=== PATIENT | male | born 1965 | race Two or more races ===

== ENCOUNTER 2025-05-01 13:58 | Outpatient (AMB) | payer MEDICAID, SELFPAY ==
--- OUTSIDE RECORDS SUMMARY | 2011-01-18 10:10 | XMS_ITS | Continuity of Care Document ---
Author Organization [facility] Address [address] [place] [address] Phone Care Team Providers Care Interactive Web Developer Name Role Phone Piotr Lux MD Unavailable Unavailable Medications Medication Instructions Dosage Effective Dates (start - stop) Status Comments Avelox 400 mg Tab take 1 tablet (400MG ) by oral route every day - Active Nasonex 50 mcg/Actuation [place] spray 2 spray by intranasal route every day in each nostril - Active Procedures Procedure Date OV, New Pt, Level II OV, New Pt, Level II Advance Directives Directive Yes / No Effective Date File Name Resuscitation Not Answered N/A N/A Life Support Not Answered N/A N/A Intubation Not Answered N/A N/A Antibiotics Not Answered N/A N/A IV Fluid Support Not Answered N/A N/A Tube Feed Not Answered N/A N/A Other Directive N/A N/A WARNING:The information contained in this section is historical and is provided for information only and does not constitute a legal document or any assurance that the information is still accurate. Please verify the information with the williamson of the legal document before using it for clinical purposes. Encounters Encounter Description Practice Location Reason(s) For Visit Diagnoses Date Provider Providers Copied on Encounter OV, New Pt, Level II [facility], [address], [place], [place], [id number], tel:[phone] [facility] Throat Pain (chief complaint)C ough (chief complaint) Throat PainOther Disease/Jimmy al Cavity/Sinu ses Jose J Saldaña. [address] [facility] [address], [address], [id number], [place]. tel:[phone] OV, New Pt, Level II [facility], [address], [place], [place], [id number], [place] tel:[phone] [facility] Chronic Rhinitis Jose J Saldaña. [address] [facility] [address], [facility] [address], [place], [place], [id number], [place]. tel:[phone] Family History Family Member Type Diagnosis Age At Onset No Information Payers Payer name Insurance type Covered green party ID Authoriza tion(s) Prompt Pay CI Social History Type Description Quantity Date Captured Comments Alcohol Use Details Caffeine Use Details coffee Tobacco Use Status Smoking Status No Information Sex Male Chief Complaint And Reason For Visit From encounter dated '01/18/2011 14:10'. Throat Pain (chief complaint). Description: The onset was week(s) ago. The symptom occurs constantly. The severity level is mild-moderate. There is a history of smoke exposure. Cough (chief complaint) Reason For Referral Reason For Referral No Information History Of Present Illness Encounter Date Complaint History Of Prese nt Illness No Information Functional Status Date Functional Assessmen t No Information Instructions Date Instruction Additional Infor mation No Information Assessments Type Assessment Date No Information Patient Care Teams Name Effective Dates (start - stop) Status Members No Information
--- NOTE | 2025-05-01 13:58 | MHC.OFFVIS ---
Vital Signs 05/01/25 14:09 Height 5 ft 6 in Weight 197 lb BMI 31.8 BP 156/100 H Blood Pressure Location Rt brachial Position Sitting Pulse 87 Pulse Source Pulse Oximeter Pulse Oximetry (%) 100 Oxygen Delivery Method Room Air Intake Visit Reasons: LUMBAR RADICULOPATHY Intake Note: Pain today 05/16 Hearing Healthcare Practitioner Required: No Accompanied by: Self / Same As Patient Allergies No Known Allergies Allergy (Verified 05/01/25 14:09) HPI Comments Details: The patient is a 59-year-old male presenting with chronic back pain and radiculopathy. 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 The pain is described as constant, burning, stabbing, and sharp, with additional sensations of cramping, crushing, and pinching. The pain worsens in the afternoon and is exacerbated by movements such as walking, bending, and changes in cold weather. It affects sleep and daily functioning, and the patient reports using a cane or walker for mobility. The patient has a history of spinal stenosis and disc herniation, revealed by an MRI showing disc herniation at T12-L1 and moderate to severe stenosis from L3 through S1. The pain radiates to both legs, particularly the back of the left leg, and is associated with numbness and tingling in the toes and weakness with walking. Patient reports he uses cane with walking. Previous management in [place] included epidural steroid injections, physical therapy, oxycodone and tramadol, but the opioid regimen has changed since moving to [place]. The patient reports that tramadol was replaced, and there is a request for increased oxycodone dosage, which was not fulfilled. 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 - Quality: Constant, burning, stabbing, sharp, cramping, crushing, pinching - Location: Lower back, radiating to both legs, especially the back of the left leg - Exacerbating factors: Movement, walking, bending, cold weather - Relieving factors: Oxycodone - Interference: Affects sleep, mobility, social and daily activities - Affect: Pain impacts sleep and daily functioning - Analgesia: Previously managed with oxycodone and tramadol; current regimen includes oxycodone 5 mg - Adverse Effects: None reported - Activities of Daily Living: Uses cane or walker for mobility; pain affects ability to work - Aberrant Drug Related Behaviors: Request for increased oxycodone dosage not fulfilled [facility] Medical History GERD (gastroesophageal reflux disease) Asthma Insomnia Hypertension Chronic pain of both shoulders Osteoarthritis of both knees Left wrist pain Cervical pain Chronic low back pain Lumbar degenerative disc disease Lumbar radiculopathy Lumbar spinal stenosis Surgical History History of carpal tunnel surgery of right wrist Review of Systems Const Details: - Musculoskeletal: Reports chronic back pain, shoulder pain, neck pain, and osteoarthritis in both knees - Neurological: Reports numbness and tingling in toes, weakness, denies bladder or bowel dysfunction or saddle anesthesia - General: Denies diabetes, fever, chills, cough or infection All systems reviewed & are unremarkable except as noted in HPI and below Physical Exam General: Appears afebrile. Alert and oriented. Mood and affect appropriate. Follows and participates in conversation appropriately. Respiratory effort is unlabored. No cough. Able to transition from sit to stand unassisted. Ambulates with bilaterally normal heel strike and toe off. General: Yes no CVA tenderness Back/Spine/Pelvis Other: Limited lumbar ROM due to pain. Lumbar flexion and extension reproduces moderate pain. Demonstrates 5/5 right and 4/5 left strength of quadriceps bilaterally as well as flexion/dorsiflexion of bilateral feet against resistance. 2+ pedal pulses bilaterally. Straight leg rise with dorsiflexion positive bilaterally, left>right. +1 patellar and achilles reflexes bilaterally. Facet loading test positive bilaterally. Brayden?s, Gaenslen, Pelvic compression and Stinchfield tests are positive bilaterally. No groin pain with I/E hip rotations. Valsalva maneuver is positive. Back: no CVA tenderness Cervical Spine: cervical ROM normal, cervical muscular tenderness and No Cervical spine tenderness Thoracic/Lumbar Spine: thoracic and lumbar spine normal to inspection, Thoracic/lumbar spine scar(s), Lasegue's sign positive bilateral and diffuse, pain with thoraco-lumbar ROM, paraspinal muscle tenderness, thoraco-lumbar ROM limited, No thoracic spinal tenderness and lumbar spinal tenderness (L3-S1) Sacroiliac joints: bilaterally tender to palpation Extrem General: Yes capillary refill normal, Yes no clubbing, cyanosis or edema and Yes no calf tenderness Results Reviewed Results Reviewed: PCP referral notes: Assessment & Plan Assessment & Plan (1) Lumbar radiculopathy: Code(s): M54.16 - Radiculopathy, lumbar region Category: Medical (2) Lumbar degenerative disc disease: Code(s): M51.369 - Other intervertebral disc degeneration, lumbar region without mention of lumbar back pain or lower extremity pain Category: Medical (3) Lumbar spinal stenosis: Code(s): M48.061 - Spinal stenosis, lumbar region without neurogenic claudication Category: Medical (4) Chronic low back pain: Code(s): M54.50 - Low back pain, unspecified; G89.29 - Other chronic pain Category: Medical (5) Lumbar spondylosis: Code(s): M47.816 - Spondylosis without myelopathy or radiculopathy, lumbar region Category: Medical Plan The plan includes obtaining medical records from [facility] and previous pain clinic to review previous MRI results and pain management strategies. The patient will be considered for injections to manage lumbar spinal stenosis and radiculopathy, contingent upon insurance approval and completion of physical therapy. I have informed patient that I do not offer opioid prescribing, currently prescribed oxycodone 5 mg BID prn by PCP but requests an increased dosages. All questions and concerns have been answered and patient agreed with the treatment plan. Follow up as needed. Patient was informed and verbally consented to the use of an ambient scribe for clinic note documentation during this visit. Orders: Orders PT Evaluation and Treatment Today G89.29 - Other chronic pain, M47.816 - Spondylosis without myelopathy or radiculopathy, lumbar region, M48.061 - Spinal stenosis, lumbar region without neurogenic claudication, M51.369 - Other intervertebral disc degeneration, lumbar region without mention of lumbar back pain or lower extremity pain, M54.16 - Radiculopathy, lumbar region, M54.50 - Low back pain, unspecified Coding Level of Care Code New Pt Level 4 (98776) Diagnoses Lumbar radiculopathy M54.16 Lumbar degenerative disc disease M51.369 Lumbar spinal stenosis M48.061 Chronic low back pain M54.50; G89.29 Lumbar spondylosis M47.816
[2025-05-01 14:09] VITALS: BP 156/100; PULSE 87; O2SAT 100; BMI 31.8
--- OUTSIDE RECORDS SUMMARY | 2025-05-01 18:27 | XMS_ITS | Clinical Summary ---
Author Organization [employer] Address [address] [place] [address] [address] [place] [address] Care Team Providers Care Measurement Supervisor Name Role Phone Missy Mcwilliams MD Primary Care Provider [phone] Allergies No known active allergies Medications Blood Pressure kitIndications:P rimary hypertension 1 Units Once per day. 1 kit 03/28/20 25 Active albuterol 108 (90 Base) MCG/ACT inhaler Inhale 2 puffs every 4 (four) hours if needed for wheezing. 18 g 03/28/20 25 Active amLODIPine (Norvasc) 10 MG tablet Take 1 tablet (10 mg) by mouth Once per day. 90 tablet 1 03/28/20 25 Active azelastine (Astelin) 0.1 % nasal spray Administer 1 spray into each nostril 2 times daily. Use in each nostril as directed 30 mL 1 03/28/20 25 Active Fluticasone-Umec lidin-Vilant (Trelegy Ellipta) 100-62.5-25 MCG/ACT aerosol powder Inhale 1 puff Once per day. 30 each 11 03/28/20 25 Active lisinopril 5 MG tablet Take 1 tablet (5 mg) by mouth Once per day. 90 tablet 1 03/28/20 25 Active montelukast (Singulair) 10 MG tablet Take 1 tablet (10 mg) by mouth at bedtime. 90 tablet 1 03/28/20 25 Active omeprazole OTC (PriLOSEC OTC) 20 MG EC tablet Take 1 tablet (20 mg) by mouth before breakfast. Do not crush, chew, or split. 90 tablet 1 03/28/20 25 Active tiZANidine (Zanaflex) 4 MG capsule Take 1 capsule (4 mg) by mouth 3 times daily. 90 capsule 5 03/28/20 25 Active zolpidem (Ambien) 10 MG tablet TAKE 1 TABLET BY MOUTH AT BEDTIME NEEDED FOR SLEEP 28 tablet 04/29/20 25 Active zolpidem (Ambien) 10 MG tablet Take 1 tablet (10 mg) by mouth if needed at bedtime for sleep. 28 tablet 1 03/28/20 25 2024 Discontinued(R eorder (will not trigger notification to Pharmacy)) oxyCODONE (Roxicodone) 5 MG immediate release tabletIndication s:Lumbar radiculopathy Take 1 tablet (5 mg) by mouth every 6 (six) hours if needed for severe pain for up to 14 days. 56 tablet 04/01/20 25 2024 Discontinued(R eorder (will not trigger notification to Pharmacy)) oxyCODONE (Roxicodone) 5 MG immediate release tabletIndication s:Lumbar radiculopathy Take 1 tablet (5 mg) by mouth every 6 (six) hours if needed for severe pain for up to 14 days. 56 tablet 04/15/20 25 2024 Active Problems Problem Noted Date Diagnosed Date Elevation of levels of lactic acid dehydrogenase (LDH) 09/02/2024 Essential (primary) hypertension 09/02/2024 Encounters Date Type Department Care Team Description 04/28/2025 Refill [facility] [address] [place] [address] Missy Mcwilliams MD 04/15/2025 Telephone [facility] [address] [place] [address] Mirta Valerio RN 04/15/2025 Telephone [facility] [address] [place] [address] Mirta Valerio RN 04/14/2025 Telephone [facility] [address] [place] [address] Mirta Valerio RN 04/14/2025 Telephone [facility] [address] [place] [address] Mirta Valerio RN 04/11/2025 Telephone [facility] [address] [place] [address] Mirta Valerio, greek professor Question 04/10/[address] [address] Missy Mcwilliams MD Medication Question 04/02/[address] [address] Missy Mcwilliams MD FYI 04/01/2025 Telephone [facility] [address] [place] [address] Missy Mcwilliams MD 03/31/[address] [address] Missy Mcwilliams MD Prior Authorization 03/28/2025 1:15 PM EDT Office Visit [facility] [address] [place] [address] Missy Mcwilliams MD Lumbar radiculopathy (Primary Dx); Dietary counseling; Exercise counseling; Class 1 obesity with serious comorbidity and body mass index (BMI) of 31.0 to 31.9 in adult, unspecified obesity type; Left wrist pain; Cervical pain (neck); Colon cancer screening; Prostate cancer screening; Primary hypertension; Encounter for health-related screening 03/28/2025 Travel 03/20/2025 Patient Outreach [address] [address] Navarro Ariza MD Pre-visit Planning (Pre visit planning LVM ) 03/19/2025 Telephone [facility] [address] [place] [address] Missy Mcwilliams MD chart prep 01/31/[address] [address] Navarro Ariza MD New Patient Request from Last 3 Months Family History Medical History Relation Name Comments Diabetes Mother Liver cancer Mother Relation Name Status Comments Mother Social History Tobacco Use Types Packs/Day Years Used Date Smoking Tobacco: Never Passive Smoke Exposure: Current Smokeless Tobacco: Never Tobacco Cessation:Counseling Given: Not Answered Alcohol Use Standard Drinks/Week Comments Never 0 (1 standard drink = 0.6 oz pur e alcohol) Sex and Gender Information Value Date Recorded Sex Assigned at Male 03/26/2025 2:32 PM EDT Legal Sex Male 11:12 AM EDT Gender Identity Male 03/26/2025 2:32 PM EDT Sexual Orientation Straight 03/26/2025 2: 32 PM EDT Last Filed Vital Signs Vital Sign Reading Time Taken Comments Blood Pressure 144/102 03/28/2025 1:31 PM EDT Pulse 80 03/28/2025 1:31 PM EDT Temperature 36.8 C (98.2 F) 03/28/2025 1:31 PM EDT Respiratory Rate 20 03/28/2025 1:31 PM EDT Oxygen Saturation 98% 03/28/2025 1:31 PM EDT Inhaled Oxygen Concentration - - Weight 89.5 kg (197 lb 6.4 oz) 03/28/2025 1:31 P M EDT Height 167.6 cm (5' 6 ) 03/28/2025 1:31 PM EDT Body Mass Index 31.86 03/28/2025 1:31 PM EDT Plan of Treatment Upcoming Encounters Date Type Department Care Team (Late st Contact Info) Description 06/02/2025 11:00 AM EDT Office Visit [facility] [address] [place] [address] Missy Mcwilliams MD [address] [place] [address] Health Maintenance Due Date Last Done Comments CT Colonography 1967 Colonoscopy 1967 Colorectal Cancer Screening 1967 Depression Screening 1967 FIT DNA/Cologuard 1967 FIT 1967 FOBT 1967 HIV Screening 1967 Lipid Panel 1967 SDOH Screening 1967 Sigmoidoscopy 1967 Disability Screening 1967 Alcohol/Substance Use Screening 1979 Hepatitis C Screening 10/09/1985 DTaP/Tdap/Td Vaccines (1 - Tdap) 10/09/1986 Hepatitis B Vaccines (1 of 3 - 19+ 3-dose series) 10/09/1986 Pneumococcal Vaccine: 50+ Ye ars (1 of 1 - PCV) 10/09/2017 Zoster Vaccines (1 of 2) 10/09/2017 COVID-19 Vaccine (1 - 2023-2 5 season) 2025 Influenza Vaccine (#1) 2025 Tobacco Screening 03/28/2026 03/28/2025 RSV Patients and Pa tients Aged 60 years or older (1 - 1-dose 75+ series) 10/09/2042 HIB Vaccines Aged Out No longer eligi ble based on patient's age to complete this topic HPV Vaccines Aged Out No longer eligi ble based on patient's age to complete this topic Hepatitis A Vaccines Aged Out No long er eligible based on patient's age to complete this topic IPV Vaccines Aged Out No longer eligi ble based on patient's age to complete this topic Meningococcal B Vaccine Aged Out No l onger eligible based on patient's age to complete this topic Meningococcal Vaccine Aged Out No emmy sukh eligible based on patient's age to complete this topic RSV under 20 months Aged Out No longe r eligible based on patient's age to complete this topic Rotavirus Vaccines Aged Out No longer eligible based on patient's age to complete this topic Insurance STANDARD Care Teams Measurement Supervisor Relationship Specialty Start Date End Date Missy Mcwilliams MD [address] [place] [phone] PCP - General Family Medicine 03/31/25
--- OUTSIDE RECORDS SUMMARY | 2025-05-01 18:27 | XMS_ITS | Encounter Summary ---
Author Organization [employer] Address [address] [place] [address] [address] [place] [address] Care Team Providers Care Delivery Analyst Name Role Phone Missy Mcwilliams MD Primary Care Provider [phone] Reason for Visit * Reason Onset Date Comments New Patient Request 01/31/2025 Encounter Details Date Type Department Care Team (Late st Contact Info) Description 01/31/2025 Telephone [facility] [address] [place], [place] [phone] Navarro Ariza MD [address] [place], [place] [phone] New Patient Request Social History Tobacco Use Types Packs/Day Years Used Date Smoking Tobacco: Never Assessed Sex and Gender Information Value Date Recorded Sex Assigned at Male 03/26/2025 2:32 PM EDT Legal Sex Male 11:12 AM EDT Gender Identity Male 03/26/2025 2:32 PM EDT Sexual Orientation Straight 03/26/2025 2: 32 PM EDT documented as of this encounter Miscellaneous Notes * Telephone Encounter - Diann Moss - 02/03/2025 3:32 PM EDT Outgoing call to pt to book 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 No answer. Left message. * Telephone Encounter - Corrie Alejandra - 01/31/2025 11:14 AM EDT TC from caller requesting NEW PATIENT visit . DX : N/A Medical Concern: Back Pain (Fall) Insurance name : [employer] [facility] Location : Sooner available Demographic information updated documented in this encounter Plan of Treatment Upcoming Encounters Date Type Department Care Team ([facility] st Contact Info) Description 06/02/2025 11:00 AM EDT Office Visit [facility] [address] [place] [address] Missy Mcwilliams MD [address] [place] [address] documented as of this encounter Visit Diagnoses Not on filedocumented in this encounter Care Teams Delivery Analyst Relationship Specialty Start Date End Date Missy Mcwilliams MD [address] [place] [address] PCP - General Family Medicine 03/31/25 documented as of this encounter
--- OUTSIDE RECORDS SUMMARY | 2025-05-01 18:27 | XMS_ITS | Encounter Summary ---
Author Organization [employer] Address [address] [place] [address] [address] [place] [address] Care Team Providers Care Joiner Name Role Phone Missy Mcwilliams MD Primary Care Provider [phone] Reason for Visit * Reason Onset Date Comments Med Refill 04/28/2025 Encounter Details Date Type Department Care Team (Late st Contact Info) Description 04/28/2025 Refill [facility] [address] [place] [address] Missy Mcwilliams MD [address] [place] [address] Social History Tobacco Use Types Packs/Day Years Used Date Smoking Tobacco: Never Passive Smoke Exposure: Current Smokeless Tobacco: Never Alcohol Use Standard Drinks/Week Comments Never 0 (1 standard drink = 0.6 oz pur e alcohol) Sex and Gender Information Value Date Recorded Sex Assigned at Male 03/26/2025 2:32 PM EDT Legal Sex Male 11:12 AM EDT Gender Identity Male 03/26/2025 2:32 PM EDT Sexual Orientation Straight 03/26/2025 2: 32 PM EDT documented as of this encounter Miscellaneous Notes * Telephone Encounter - Faye Ordonez LPN - 04/28/2025 2:04 PM EDT PHARMACY OPERATIONS COORDINATOR checked on 04/28/25 Ambien last filled on 04/09/25 #15. Last seen 03/28/25. * Telephone Encounter - Nuris Peña - 04/28/2025 1:59 PM EDT TC from pt requesting medication refill. Medications needing refill : zolpidem (Ambien) 10 MG tablet To be sent to: [facility]/pharmacy #[id number] - [place], [place] - [address] [facility] documented in this encounter Plan of Treatment Upcoming Encounters Date Type Department Care Team ([facility] st Contact Info) Description 06/02/2025 11:00 AM EDT Office Visit [facility] [address] [place] [address] Missy Mcwilliams MD [address] [place] [address] documented as of this encounter Visit Diagnoses Not on filedocumented in this encounter Care Teams Joiner Relationship Specialty Start Date End Date Missy Mcwilliams MD [address] [place] [address] PCP - General Family Medicine 03/31/25 documented as of this encounter
--- OUTSIDE RECORDS SUMMARY | 2025-05-01 18:27 | XMS_ITS | Clinical Summary ---
Author Organization [facility] Address [address] [place] [address] Care Team Providers Care Director Of Epidemiology Name Role Phone Unavailable Primary Care Provider Unavailabl e Source Comments PLEASE NOTE, if this patient is a minor, it may be UNLAWFUL to discuss sensitive information that is contained in these records (such as FAMILY PLANNING, MENTAL HEALTH or SUBSTANCE ABUSE) with the minor patient's parent or other person without the patient's specific authorization.[facility] Social History Tobacco Use Types Packs/Day Years Used Date Smoking Tobacco: Never Assessed Sex and Gender Information Value Date Recorded Sex Assigned at Not on file Legal Sex Male 8:52 AM PDT Gender Identity Not on file Sexual Orientation Not on file Plan of Treatment Upcoming Encounters Date Type Department Care Team (Late st Contact Info) Description 05/08/2025 2:40 PM EDT Office Visit [facility] [address] [place] [phone] Angelina Davis RHD [address] [place] [address] Health Maintenance Due Date Last Done Comments Anxiety Screening 1967 Diabetes Screening 1967 Hepatitis C Screening 1967 Lipid Screening 1967 Tobacco Screening 1967 HIV Screening 10/09/1982 Hypertension Screening (#1) 10/09/1985 Imm-DTaP/Tdap/Td (1 - Tdap) 10/09/1986 Imm-Hepatitis B (1 of 3 - 19+ 3-dose series) 7 CT Colonography 10/09/2012 Colonoscopy 10/09/2012 Colorectal Cancer Screening 10/09/2012 FIT/gFOBT 10/09/2012 Fecal DNA 10/09/2012 Flexible Sigmoidoscopy 10/09/2012 Imm-Pneumococcal 50+ (1 of 1 - PCV) 10/09/2017 Imm-Zoster, Recombinant (1 of 2) 10/09/2017 Alcohol and Drug Screen 08/07/2024 Depression Annual Screen 08/07/2024 [id number] ( season) 2025 Imm-Influenza (#1) 2025
== END 2025-05-01 14:40 | disposition home or self-care (01) ==
PROVIDERS: PCP Family Medicine; Visit Provider Nurse Practitioner Family
DX: M54.16 Radiculopathy, lumbar region (principal); M51.369 Other intervertebral disc degeneration, lumbar region without mention of lumbar back pain or lower extremity pain; M48.061 Spinal stenosis, lumbar region without neurogenic claudication; M54.50 Low back pain, unspecified; G89.29 Other chronic pain; M47.816 Spondylosis without myelopathy or radiculopathy, lumbar region
CPT/HCPCS: 99204

== ENCOUNTER → 2025-05-01 13:58 | Outpatient (BNVA) | payer MEDICAID, SELFPAY | PROVIDERS: PCP Family Medicine; Visit Provider Nurse Practitioner Family | DX: M48.061 Spinal stenosis, lumbar region without neurogenic claudication (principal); M54.16 Radiculopathy, lumbar region; M51.369 Other intervertebral disc degeneration, lumbar region without mention of lumbar back pain or lower extremity pain; M54.50 Low back pain, unspecified; G89.29 Other chronic pain; M47.816 Spondylosis without myelopathy or radiculopathy, lumbar region | CPT/HCPCS: 99212 ==

== ENCOUNTER 2025-06-03 09:16 | Outpatient (REF) | payer MEDICAID, SELFPAY ==
--- OUTSIDE RECORDS SUMMARY | 2025-03-06 13:15 | XMS_ITS ---
Author Organization [facility] Address [address] [place] [address] Care Team Providers Care Hand Binder Cutter Name Role Phone BEBETO VILLEGAS Primary Care Provider [phone] CHANTAL DALLAS Unavailable [phone] REASON FOR VISIT AI DOM Insights - Start , 1. Sleep Study Recommended: Yes, - - - - - - - - - - - - - - -- - - - - - - - - - - - - - - - - -, BMI: 31.16 (12/24/2024), Hypertension: Yes (02/02/2023), HeartDisease: No Results Found, - - - - - - - - - - - - - - - - - - - - - - - - - - - - - - - - -, ALFONZO BOT Insights - End Medications Medication SIG (Take, Route, Frequency, Duration) Notes Start Date End Date Status Sutab 0781-146-261 MG Tablet 12 tablets the first dose the evening before and second dose the morning of colonoscopy Orally Twice a day; Duration: 1 days 10/25/2024 Not-Taking oxyCODONE HCl 5 MG Tablet 1 tablet as needed Orally every 6 hrs Not-Taking GaviLyte-C 240 GM Solution Reconstituted milliliter Orally prescribe; Duration: 1 days 10/25/2024 Not-Taking Azelastine HCl 137 MCG/SPRAY Solution 1 puff in each nostril Nasally Twice a day; Duration: 30 days Not-Taking Zithromax Z-Kody 250 MG Tablet 2 tablets on the first day, then 1 tablet daily for 4 days Orally Once a day; Duration: 5 days 01/02/2025 Active Trelegy Ellipta 100-62.5-25 MCG/ACT Aerosol Powder Breath Activated 1 puff Inhalation Once a day; Duration: 30 days 07/26/2024 Active traMADol HCl 50 MG Tablet 1 tablet as needed Orally three times daily; Duration: 30 days 02/10/2025 03/12/2025 Active tiZANidine HCl 4 MG Tablet TAKE 1 TABLET BY MOUTH THREE TIMES A DAY; Duration: 30 Active Spirometer - Kit as directed; Duratio n: 30 days 09/13/2024 Active Pataday 0.1 % Solution 1 drop into affec brittany eye Ophthalmic Twice a day; Duration: 10 days 11/26/2024 Active oxyCODONE HCl 5 MG Tablet 1 tablet as needed Orally every 6 hrs; Duration: 30 days 02/10/2025 03/12/2025 Active Naproxen 500 MG Tablet TAKE 1 TABLET BY MOUTH EVERY 12 HOURS; Duration: 30 Active Montelukast Sodium 10 MG Tablet TAKE 1 TABLET BY MOUTH EVERY DAY; Duration: 90 Active Lisinopril 5 MG Tablet 1 tablet Orally O nce a day; Duration: 90 days 11/11/2024 Active Gabapentin 400 MG Capsule 1 capsule Orally Twice a day; Duration: 90 days Active Ambien 10 MG Tablet 1 tablet at bedtime as needed Orally Once a day; Duration: 30 days 02/25/2025 03/27/2025 Active Albuterol Sulfate HFA 108 (90 Base) MCG/ACT Aerosol Solution INHALE 1 PUFF INTO THE LUNGS EVERY 4 HOURS PRN; Duration: 30 days Active Azelastine HCl 137 MCG/SPRAY Solution 2 puffs (1 spray in each nostril) Nasally Twice a day; Duration: 30 days 11/26/2024 Active Encounters Encounter Location Date Provider Diagnosis [facility] [address] [place] [address] 03/06/2025 BEBETO VILLEGAS Plan Of Treatment Next Appt Details Provider Name:MARY TRAORE, 10:00:00 AM, [address], [place], [address], Progress Notes * Chu CERVANTES:1965 ([age] yo M)Acc No.[id number]:03/06/2025 progress notes Patient: Tino Art Provider: Brodie VILLEGAS MD :1965 A ge:59 Y S ex:Male Date:03/06/2025 Address:[facility] [address], [address], [facility] Subjective: * Chief Complaints: * * AI BOT Insights - Start 1. Sleep Study Recommended: Yes- - - - - - - - - - - - - - - - - - - - - - - - - - - - - - - - -BMI: 31.16 (12/24/2024)Hypertension: Yes (02/02/2023)Heart Disease: No Results Found- - - - - - - - - - - - - - - - - - - - - - - - - - - - - - - - - AI BOT Insights - End * Medications: T akingAlbuterol Sulfate HFA 108 (90 Base) MCG/ACT Aerosol Solution INHALE 1 PUFF INTO THE LUNGS EVERY 4 HOURS PRN Ambien 10 MG Tablet 1 tablet at bedtime as needed Orally Once a day , stop date 03/27/2025zelastine HCl 137 MCG/SPRAY Solution 2 puffs (1 spray in each nostril) Nasally Twice a day Gabapentin 400 MG Capsule 1 capsule Orally Twice a day Lisinopril 5 MG Tablet 1 tablet Orally Once a day Montelukast Sodium 10 MG Tablet TAKE 1 TABLET BY MOUTH EVERY DAY Naproxen 500 MG Tablet TAKE 1 TABLET BY MOUTH EVERY 12 HOURS oxyCODONE HCl 5 MG Tablet 1 tablet as needed Orally every 6 hrs , stop date 03/12/2025Pataday 0.1 % Solution 1 drop into affected eye Ophthalmic Twice a day Spirometer - Kit as directed tiZANidine HCl 4 MG Tablet TAKE 1 TABLET BY MOUTH THREE TIMES A DAY traMADol HCl 50 MG Tablet 1 tablet as needed Orally three times daily , stop date 03/12/2025Trelegy Ellipta 100-62.5-25 MCG/ACT Aerosol Powder Breath Activated 1 puff Inhalation Once a day Zithromax Z-Kody 250 MG Tablet 2 tablets on the first day, then 1 tablet daily for 4 days Orally Once a day Taking Albuterol Sulfate HFA 108 (90 Base) MCG/ACT Aerosol Solution INHALE 1 PUFF INTO THE LUNGS EVERY 4 HOURS PRN Taking Ambien 10 MG Tablet 1 tablet at bedtime as needed Orally Once a day , stop date 03/27/2025Taking Azelastine HCl 137 MCG/SPRAY Solution 2 puffs (1 spray in each nostril) Nasally Twice a day Taking Gabapentin 400 MG Capsule 1 capsule Orally Twice a day Taking Lisinopril 5 MG Tablet 1 tablet Orally Once a day Taking Montelukast Sodium 10 MG Tablet TAKE 1 TABLET BY MOUTH EVERY DAY Taking Naproxen 500 MG Tablet TAKE 1 TABLET BY MOUTH EVERY 12 HOURS Taking oxyCODONE HCl 5 MG Tablet 1 tablet as needed Orally every 6 hrs , stop date 03/12/2025Taking Pataday 0.1 % Solution 1 drop into affected eye Ophthalmic Twice a day Taking Spirometer - Kit as directed Taking tiZANidine HCl 4 MG Tablet TAKE 1 TABLET BY MOUTH THREE TIMES A DAY Taking traMADol HCl 50 MG Tablet 1 tablet as needed Orally three times daily , stop date 03/12/2025Taking Trelegy Ellipta 100-62.5-25 MCG/ACT Aerosol Powder Breath Activated 1 puff Inhalation Once a day Taking Zithromax Z-Kody 250 MG Tablet 2 tablets on the first day, then 1 tablet daily for 4 days Orally Once a day Not-TakingAzelastine HCl 137 MCG/SPRAY Solution 1 puff in each nostril Nasally Twice a day GaviLyte-C 240 GM Solution Reconstituted milliliter Orally prescribe oxyCODONE HCl 5 MG Tablet 1 tablet as needed Orally every 6 hrs Sutab 8189-099-745 MG Tablet 12 tablets the first dose the evening before and second dose the morning of colonoscopy Orally Twice a day Not-Taking Azelastine HCl 137 MCG/SPRAY Solution 1 puff in each nostril Nasally Twice a day Not-Taking GaviLyte-C 240 GM Solution Reconstituted milliliter Orally prescribe Not-Taking oxyCODONE HCl 5 MG Tablet 1 tablet as needed Orally every 6 hrs Not-Taking Sutab 0717-859-615 MG Tablet 12 tablets the first dose the evening before and second dose the morning of colonoscopy Orally Twice a day * Electronic signature of WILLIAMS VILLEGAS MD, [id number] on 06/03/2025 at 10:24 AM EDT Sign off status: Pending * Provider: Brodie VILLEGAS MD Date: 0 03/06/2025 Generated for Lalita castro/Florian/Oni on: 1 10:24 AM EDT
--- OUTSIDE RECORDS SUMMARY | 2025-03-07 11:00 | XMS_ITS ---
Author Organization [facility] C Address [address] [place] [address] Care Team Providers [employer] Supervisor Name Role Phone JOSÉ MIGUEL VILLEGAS Primary Care Provider CHANTAL DALLAS Unavailable [phone] Allergies No Known Allergies REASON FOR VISIT [phone], Medical management of chronic lumbar pain, insomnia , seasonal allergies, and vitaminD deficiency, Rates pain level as 10, Requesting Toradol injection, Oxycodone, Tramadol, Ambien-30 day supply, Montelukast, and Vitamin D., [employer] - Start , 1. Sleep Study Recommended: Yes, - - - - - - - - - - - - - - - - - - - - - - - - - - - - - - - - -, BMI: 31.16 (12/24/2024), Hypertension: Yes (02/02/2023), Heart Disease: No Results Found, - - - - - - - - - - - - - - - - - - - - - - - - - - - - - - - - -, [employer] - End Medications Medication SIG (Take, Route, Frequency, Duration) Notes Start Date End Date Status oxyCODONE HCl 5 MG Tablet 1 tablet as needed Orally every 6 hrs Not-Taking Sutab 1062-374-015 MG Tablet 12 tablets the first dose the evening before and second dose the morning of colonoscopy Orally Twice a day; Duration: 1 days 10/25/2024 Not-Taking Vitamin D (Ergocalciferol) 1.25 MG (49878 UT) Capsule TAKE 1 CAPSULE BY MOUTH ONE TIME PER WEEK FOR 90 DAYS; Duration: 90 Active Azelastine HCl 137 MCG/SPRAY Solution 1 puff in each nostril Nasally Twice a day; Duration: 30 days Not-Taking GaviLyte-C 240 GM Solution Reconstituted milliliter Orally prescribe; Duration: 1 days 10/25/2024 Not-Taking Trelegy Ellipta 100-62.5-25 MCG/ACT Aerosol Powder Breath Activated 1 puff Inhalation Once a day; Duration: 30 days 07/26/2024 Active Zithromax Z-Kody 250 MG Tablet 2 tablets on the first day, then 1 tablet daily for 4 days Orally Once a day; Duration: 5 days 01/02/2025 Not-Taking tiZANidine HCl 4 MG Tablet TAKE 1 TABLET BY MOUTH THREE TIMES A DAY; Duration: 30 Active Ambien 10 MG Tablet 1 tablet at bedtime as needed Orally Once a day; Duration: 30 days 03/07/2025 04/06/2025 Active Montelukast Sodium 10 MG Tablet TAKE 1 TABLET BY MOUTH EVERY DAY; Duration: 90 Active oxyCODONE HCl 5 MG Tablet 1 tablet as needed Orally every 6 hrs; Duration: 30 days 03/07/2025 04/06/2025 Active traMADol HCl 50 MG Tablet 1 tablet as needed Orally three times daily; Duration: 30 days 03/07/2025 04/06/2025 Active Naproxen 500 MG Tablet TAKE 1 TABLET BY MOUTH EVERY 12 HOURS; Duration: 30 Active Pataday 0.1 % Solution 1 drop into affec brittany eye Ophthalmic Twice a day; Duration: 10 days 11/26/2024 Active Spirometer - Kit as directed; Duratio n: 30 days 09/13/2024 Active Azelastine HCl 137 MCG/SPRAY Solution 2 puffs (1 spray in each nostril) Nasally Twice a day; Duration: 30 days 11/26/2024 Active Gabapentin 400 MG Capsule 1 capsule Orally Twice a day; Duration: 90 days Active Lisinopril 5 MG Tablet 1 tablet Orally O nce a day; Duration: 90 days 11/11/2024 Active Albuterol Sulfate HFA 108 (90 Base) MCG/ACT Aerosol Solution INHALE 1 PUFF INTO THE LUNGS EVERY 4 HOURS PRN; Duration: 30 days Active Social History Section Notes: denies smoking Encounters Encounter Location Date Provider Diagnosis 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 A Toradol (ketorolac) 60 mg intramuscular injection was ordered to address his acute exacerbation of back pain. The patient was counseled on the risks associated with opioid therapy, including the potential for dependence, constipation, sedation, and respiratory depression, as well as the importance of not exceeding prescribed dosages or combining with other sedatives or alcohol. The risks and benefits of NSAID therapy were reviewed, including gastrointestinal, renal, and cardiovascular complications. The patient was encouraged to incorporate non-pharmacologic al strategies such as physical therapy, stretching, and ergonomic modifications to support pain management and functional improvement. The importance of medication adherence was emphasized, as non-adherence could result in uncontrolled pain, functional decline, or increased risk of misuse or overdose. The patient is a 59-year-old male presenting via telemedicine for ongoing management of multiple chronic conditions, including lumbar radiculopathy, insomnia, seasonal allergies, and vitamin D deficiency. He reports persistent severe lower back pain radiating to the lower extremities, rating his pain as 10/10. He is currently managed with Oxycodone and Tramadol for pain, Ambien for insomnia, Montelukast for allergies, and Vitamin D supplementation. The patient requests refills for all these medications and specifically requests a Toradol injection for acute pain exacerbation. He denies any side effects from his current medications and states that they are effective. MEDICAL DECISION MAKING AND DIFFERENTIAL DIAGNOSIS: The patient's primary concern is severe lumbar radiculopathy, with a pain score of 10/10 despite ongoing opioid and non-opioid analgesic therapy. Differential diagnoses for his back pain include lumbar disc herniation, spinal stenosis, and musculoskeletal strain, but the chronicity and response to current therapy support the diagnosis of lumbar radiculopathy. Insomnia is likely multifactorial, possibly exacerbated by chronic pain and opioid use. Seasonal allergies are well-controlled on Montelukast, and vitamin D deficiency is managed with supplementation. The patient's request for a Toradol injection was considered appropriate for acute pain exacerbation, given the lack of reported side effects and the need for multimodal pain management. Continued monitoring for opioid-related adverse effects and potential medication interactions is warranted. TREATMENT PLAN: The patient's medical history was reviewed and medications were reconciled.Refil ls for Oxycodone, Tramadol, Ambien, Montelukast, and Vitamin D were provided as the patient reported good efficacy and no adverse effects. The SKIN THERAPIST I-STOP was reviewed to ensure appropriate use and monitoring of medication. A Toradol (ketorolac) 60 mg intramuscular injection was ordered to address acute exacerbation of back pain. The patient was counseled on the risks and benefits of opioid and NSAID use, including potential side effects, risk of dependence, gastrointestinal , renal, and cardiovascular complications, and the importance of adherence to prescribed regimens. Non-pharmacologi perry strategies such as physical therapy, stretching, and ergonomic modifications were discussed as adjuncts to pharmacologic therapy. The patient was advised to monitor for any new or worsening symptoms, including signs of medication side effects, and to seek prompt medical attention if these occur. Follow-up was recommended within 1 month or sooner if symptoms worsen. FOLLOWUP DISCUSSION: The patient was scheduled for a follow-up appointment in one month to evaluate the effectiveness of the current treatment plan and to monitor for any side effects or complications. 03/07/2025 Primary insomnia (ICD-10 - F51.01) A refill for Ambien (zolpidem) was provided, with instructions to use the medication strictly as prescribed to minimize the risk of dependence, next-day drowsiness, cognitive impairment, and other potential side effects. The patient was advised to avoid concurrent use of other central nervous system depressants or alcohol while taking Ambien. The importance of adherence to the prescribed regimen was discussed, as non-adherence could lead to persistent insomnia, impaired daytime functioning, or increased risk of accidents. Non-pharmacologic al interventions, including sleep hygiene practices and consideration of cognitive behavioral therapy for insomnia, were recommended as adjunctive measures. The patient is a 59-year-old male presenting via telemedicine for ongoing management of multiple chronic conditions, including lumbar radiculopathy, insomnia, seasonal allergies, and vitamin D deficiency. He reports persistent severe lower back pain radiating to the lower extremities, rating his pain as 10/10. He is currently managed with Oxycodone and Tramadol for pain, Ambien for insomnia, Montelukast for allergies, and Vitamin D supplementation. The patient requests refills for all these medications and specifically requests a Toradol injection for acute pain exacerbation. He denies any side effects from his current medications and states that they are effective. MEDICAL DECISION MAKING AND DIFFERENTIAL DIAGNOSIS: The patient's primary concern is severe lumbar radiculopathy, with a pain score of 10/10 despite ongoing opioid and non-opioid analgesic therapy. Differential diagnoses for his back pain include lumbar disc herniation, spinal stenosis, and musculoskeletal strain, but the chronicity and response to current therapy support the diagnosis of lumbar radiculopathy. Insomnia is likely multifactorial, possibly exacerbated by chronic pain and opioid use. Seasonal allergies are well-controlled on Montelukast, and vitamin D deficiency is managed with supplementation. The patient's request for a Toradol injection was considered appropriate for acute pain exacerbation, given the lack of reported side effects and the need for multimodal pain management. Continued monitoring for opioid-related adverse effects and potential medication interactions is warranted. TREATMENT PLAN: The patient's medical history was reviewed and medications were reconciled.Refil ls for Oxycodone, Tramadol, Ambien, Montelukast, and Vitamin D were provided as the patient reported good efficacy and no adverse effects. The SKIN THERAPIST I-STOP was reviewed to ensure appropriate use and monitoring of medication. A Toradol (ketorolac) 60 mg intramuscular injection was ordered to address acute exacerbation of back pain. The patient was counseled on the risks and benefits of opioid and NSAID use, including potential side effects, risk of dependence, gastrointestinal , renal, and cardiovascular complications, and the importance of adherence to prescribed regimens. Non-pharmacologi perry strategies such as physical therapy, stretching, and ergonomic modifications were discussed as adjuncts to pharmacologic therapy. The patient was advised to monitor for any new or worsening symptoms, including signs of medication side effects, and to seek prompt medical attention if these occur. Follow-up was recommended within 1 month or sooner if symptoms worsen. FOLLOWUP DISCUSSION: The patient was scheduled for a follow-up appointment in one month to evaluate the effectiveness of the current treatment plan and to monitor for any side effects or complications. 03/07/2025 Seasonal allergies (ICD-10 - J30.2) A refill for Montelukast was provided to continue management of the patient's seasonal allergies. The patient was advised to take the medication daily as prescribed and was informed about potential side effects, including headache, abdominal pain, and rare neuropsychiatric events. The importance of adherence was emphasized, as non-adherence could result in recurrence or worsening of allergy symptoms. The patient was also encouraged to avoid known allergens and consider adjunctive non-pharmacologic al measures, such as nasal saline irrigation, if symptoms persist. The patient is a 59-year-old male presenting via telemedicine for ongoing management of multiple chronic conditions, including lumbar radiculopathy, insomnia, seasonal allergies, and vitamin D deficiency. He reports persistent severe lower back pain radiating to the lower extremities, rating his pain as 10/10. He is currently managed with Oxycodone and Tramadol for pain, Ambien for insomnia, Montelukast for allergies, and Vitamin D supplementation. The patient requests refills for all these medications and specifically requests a Toradol injection for acute pain exacerbation. He denies any side effects from his current medications and states that they are effective. MEDICAL DECISION MAKING AND DIFFERENTIAL DIAGNOSIS: The patient's primary concern is severe lumbar radiculopathy, with a pain score of 10/10 despite ongoing opioid and non-opioid analgesic therapy. Differential diagnoses for his back pain include lumbar disc herniation, spinal stenosis, and musculoskeletal strain, but the chronicity and response to current therapy support the diagnosis of lumbar radiculopathy. Insomnia is likely multifactorial, possibly exacerbated by chronic pain and opioid use. Seasonal allergies are well-controlled on Montelukast, and vitamin D deficiency is managed with supplementation. The patient's request for a Toradol injection was considered appropriate for acute pain exacerbation, given the lack of reported side effects and the need for multimodal pain management. Continued monitoring for opioid-related adverse effects and potential medication interactions is warranted. TREATMENT PLAN: The patient's medical history was reviewed and medications were reconciled.Refil ls for Oxycodone, Tramadol, Ambien, Montelukast, and Vitamin D were provided as the patient reported good efficacy and no adverse effects. The SKIN THERAPIST I-STOP was reviewed to ensure appropriate use and monitoring of medication. A Toradol (ketorolac) 60 mg intramuscular injection was ordered to address acute exacerbation of back pain. The patient was counseled on the risks and benefits of opioid and NSAID use, including potential side effects, risk of dependence, gastrointestinal , renal, and cardiovascular complications, and the importance of adherence to prescribed regimens. Non-pharmacologi perry strategies such as physical therapy, stretching, and ergonomic modifications were discussed as adjuncts to pharmacologic therapy. The patient was advised to monitor for any new or worsening symptoms, including signs of medication side effects, and to seek prompt medical attention if these occur. Follow-up was recommended within 1 month or sooner if symptoms worsen. FOLLOWUP DISCUSSION: The patient was scheduled for a follow-up appointment in one month to evaluate the effectiveness of the current treatment plan and to monitor for any side effects or complications. 03/07/2025 Vitamin D deficiency (ICD-10 - E55.9) A refill for Vitamin D supplementation was provided, with instructions to take the supplement as directed. The patient was counseled on the importance of adherence to prevent persistent deficiency and associated complications, such as bone demineralization and increased fracture risk. He was advised to report any symptoms suggestive of hypercalcemia, including nausea, vomiting, or confusion, which could indicate excessive supplementation. The patient was encouraged to maintain a balanced diet and consider safe sun exposure as additional measures to support vitamin D levels. The patient is a 59-year-old male presenting via telemedicine for ongoing management of multiple chronic conditions, including lumbar radiculopathy, insomnia, seasonal allergies, and vitamin D deficiency. He reports persistent severe lower back pain radiating to the lower extremities, rating his pain as 10/10. He is currently managed with Oxycodone and Tramadol for pain, Ambien for insomnia, Montelukast for allergies, and Vitamin D supplementation. The patient requests refills for all these medications and specifically requests a Toradol injection for acute pain exacerbation. He denies any side effects from his current medications and states that they are effective. MEDICAL DECISION MAKING AND DIFFERENTIAL DIAGNOSIS: The patient's primary concern is severe lumbar radiculopathy, with a pain score of 10/10 despite ongoing opioid and non-opioid analgesic therapy. Differential diagnoses for his back pain include lumbar disc herniation, spinal stenosis, and musculoskeletal strain, but the chronicity and response to current therapy support the diagnosis of lumbar radiculopathy. Insomnia is likely multifactorial, possibly exacerbated by chronic pain and opioid use. Seasonal allergies are well-controlled on Montelukast, and vitamin D deficiency is managed with supplementation. The patient's request for a Toradol injection was considered appropriate for acute pain exacerbation, given the lack of reported side effects and the need for multimodal pain management. Continued monitoring for opioid-related adverse effects and potential medication interactions is warranted. TREATMENT PLAN: The patient's medical history was reviewed and medications were reconciled.Refil ls for Oxycodone, Tramadol, Ambien, Montelukast, and Vitamin D were provided as the patient reported good efficacy and no adverse effects. The SKIN THERAPIST I-STOP was reviewed to ensure appropriate use and monitoring of medication. A Toradol (ketorolac) 60 mg intramuscular injection was ordered to address acute exacerbation of back pain. The patient was counseled on the risks and benefits of opioid and NSAID use, including potential side effects, risk of dependence, gastrointestinal , renal, and cardiovascular complications, and the importance of adherence to prescribed regimens. Non-pharmacologi perry strategies such as physical therapy, stretching, and ergonomic modifications were discussed as adjuncts to pharmacologic therapy. The patient was advised to monitor for any new or worsening symptoms, including signs of medication side effects, and to seek prompt medical attention if these occur. Follow-up was recommended within 1 month or sooner if symptoms worsen. FOLLOWUP DISCUSSION: The patient was scheduled for a follow-up appointment in one month to evaluate the effectiveness of the current treatment plan and to monitor for any side effects or complications. 03/07/2025 snf current use of opiate analgesic (ICD-10 - Z79.891) iStop checked today. Patient made aware of drug addictive potential. Patient advised not to take medication, drink, drive or operate heavy machinery. Advised patient can from respiratory depression. Patient voiced understanding. The patient is a 59-year-old male presenting via telemedicine for ongoing management of multiple chronic conditions, including lumbar radiculopathy, insomnia, seasonal allergies, and vitamin D deficiency. He reports persistent severe lower back pain radiating to the lower extremities, rating his pain as 10/10. He is currently managed with Oxycodone and Tramadol for pain, Ambien for insomnia, Montelukast for allergies, and Vitamin D supplementation. The patient requests refills for all these medications and specifically requests a Toradol injection for acute pain exacerbation. He denies any side effects from his current medications and states that they are effective. MEDICAL DECISION MAKING AND DIFFERENTIAL DIAGNOSIS: The patient's primary concern is severe lumbar radiculopathy, with a pain score of 10/10 despite ongoing opioid and non-opioid analgesic therapy. Differential diagnoses for his back pain include lumbar disc herniation, spinal stenosis, and musculoskeletal strain, but the chronicity and response to current therapy support the diagnosis of lumbar radiculopathy. Insomnia is likely multifactorial, possibly exacerbated by chronic pain and opioid use. Seasonal allergies are well-controlled on Montelukast, and vitamin D deficiency is managed with supplementation. The patient's request for a Toradol injection was considered appropriate for acute pain exacerbation, given the lack of reported side effects and the need for multimodal pain management. Continued monitoring for opioid-related adverse effects and potential medication interactions is warranted. TREATMENT PLAN: The patient's medical history was reviewed and medications were reconciled.Refil ls for Oxycodone, Tramadol, Ambien, Montelukast, and Vitamin D were provided as the patient reported good efficacy and no adverse effects. The SKIN THERAPIST I-STOP was reviewed to ensure appropriate use and monitoring of medication. A Toradol (ketorolac) 60 mg intramuscular injection was ordered to address acute exacerbation of back pain. The patient was counseled on the risks and benefits of opioid and NSAID use, including potential side effects, risk of dependence, gastrointestinal , renal, and cardiovascular complications, and the importance of adherence to prescribed regimens. Non-pharmacologi perry strategies such as physical therapy, stretching, and ergonomic modifications were discussed as adjuncts to pharmacologic therapy. The patient was advised to monitor for any new or worsening symptoms, including signs of medication side effects, and to seek prompt medical attention if these occur. Follow-up was recommended within 1 month or sooner if symptoms worsen. FOLLOWUP DISCUSSION: The patient was scheduled for a follow-up appointment in one month to evaluate the effectiveness of the current treatment plan and to monitor for any side effects or complications. 03/07/2025 Other By signing my name below, Stu Rosales, attest that this documentation has been prepared under the direction and in the presence of José Miguel Villegas MD I, Rajan Gulati personally performed the services described in this documentation. All medical record entries made by the scribe were at my direction and in my presence. I have reviewed the chart and discharge instructions and agree that the record reflects my personal performance and is accurate and completed. Electronically Signed: José Miguel Villegas MD By signing my name below, I, Syeda Roe, attest that this documentation has been supervised by me under the direction and in the presence of José Miguel Villegas MD Electronically Signed: Syeda Roe The patient is a 59-year-old male presenting via telemedicine for ongoing management of multiple chronic conditions, including lumbar radiculopathy, insomnia, seasonal allergies, and vitamin D deficiency. He reports persistent severe lower back pain radiating to the lower extremities, rating his pain as 10/10. He is currently managed with Oxycodone and Tramadol for pain, Ambien for insomnia, Montelukast for allergies, and Vitamin D supplementation. The patient requests refills for all these medications and specifically requests a Toradol injection for acute pain exacerbation. He denies any side effects from his current medications and states that they are effective. MEDICAL DECISION MAKING AND DIFFERENTIAL DIAGNOSIS: The patient's primary concern is severe lumbar radiculopathy, with a pain score of 10/10 despite ongoing opioid and non-opioid analgesic therapy. Differential diagnoses for his back pain include lumbar disc herniation, spinal stenosis, and musculoskeletal strain, but the chronicity and response to current therapy support the diagnosis of lumbar radiculopathy. Insomnia is likely multifactorial, possibly exacerbated by chronic pain and opioid use. Seasonal allergies are well-controlled on Montelukast, and vitamin D deficiency is managed with supplementation. The patient's request for a Toradol injection was considered appropriate for acute pain exacerbation, given the lack of reported side effects and the need for multimodal pain management. Continued monitoring for opioid-related adverse effects and potential medication interactions is warranted. TREATMENT PLAN: The patient's medical history was reviewed and medications were reconciled.Refil ls for Oxycodone, Tramadol, Ambien, Montelukast, and Vitamin D were provided as the patient reported good efficacy and no adverse effects. The SKIN THERAPIST I-STOP was reviewed to ensure appropriate use and monitoring of medication. A Toradol (ketorolac) 60 mg intramuscular injection was ordered to address acute exacerbation of back pain. The patient was counseled on the risks and benefits of opioid and NSAID use, including potential side effects, risk of dependence, gastrointestinal , renal, and cardiovascular complications, and the importance of adherence to prescribed regimens. Non-pharmacologi perry strategies such as physical therapy, stretching, and ergonomic modifications were discussed as adjuncts to pharmacologic therapy. The patient was advised to monitor for any new or worsening symptoms, including signs of medication side effects, and to seek prompt medical attention if these occur. Follow-up was recommended within 1 month or sooner if symptoms worsen. FOLLOWUP DISCUSSION: The patient was scheduled for a follow-up appointment in one month to evaluate the effectiveness of the current treatment plan and to monitor for any side effects or complications. Plan Of Treatment Medication Medication Name Sig Start Date Stop Date Notes Vitamin D (Ergocalciferol) 1 .25 MG (77472 UT) Capsule TAKE 1 CAPSULE BY MOUTH ONE TIME PER WEEK FOR 90 DAYS; Duration: 90 Ambien 10 MG Tablet 1 tablet at bedtime as needed Orally Once a day; Duration: 30 days 03/07/2025 04/06/2025 Montelukast Sodium 10 MG Tablet TAKE 1 T ABLET BY MOUTH EVERY DAY; Duration: 90 oxyCODONE HCl 5 MG Tablet 1 tablet as ne eded Orally every 6 hrs; Duration: 30 days 03/07/2025 04/06/2025 traMADol HCl 50 MG Tablet 1 tablet as ne eded Orally three times daily; Duration: 30 days 03/07/2025 04/06/2025 Treatment Notes Assessment Notes Lumbar radiculopathy Refills for Oxycodo ne and Tramadol were provided to maintain the patient's current pain management regimen, as he reported effective pain control and denied any adverse effects. A Toradol (ketorolac) 60 mg intramuscular injection was ordered to address his acute exacerbation of back pain. The patient was counseled on the risks associated with opioid therapy, including the potential for dependence, constipation, sedation, and respiratory depression, as well as the importance of not exceeding prescribed dosages or combining with other sedatives or alcohol. The risks and benefits of NSAID therapy were reviewed, including gastrointestinal, renal, and cardiovascular complications. The patient was encouraged to incorporate non-pharmacological strategies such as physical therapy, stretching, and ergonomic modifications to support pain management and functional improvement. The importance of medication adherence was emphasized, as non-adherence could result in uncontrolled pain, functional decline, or increased risk of misuse or overdose. Primary insomnia A refill for Ambien (zolpidem) was provided, with instructions to use the medication strictly as prescribed to minimize the risk of dependence, next-day drowsiness, cognitive impairment, and other potential side effects. The patient was advised to avoid concurrent use of other central nervous system depressants or alcohol while taking Ambien. The importance of adherence to the prescribed regimen was discussed, as non-adherence could lead to persistent insomnia, impaired daytime functioning, or increased risk of accidents. Non-pharmacological interventions, including sleep hygiene practices and consideration of cognitive behavioral therapy for insomnia, were recommended as adjunctive measures. Seasonal allergies A refill for Montelu kast was provided to continue management of the patient's seasonal allergies. The patient was advised to take the medication daily as prescribed and was informed about potential side effects, including headache, abdominal pain, and rare neuropsychiatric events. The importance of adherence was emphasized, as non-adherence could result in recurrence or worsening of allergy symptoms. The patient was also encouraged to avoid known allergens and consider adjunctive non-pharmacological measures, such as nasal saline irrigation, if symptoms persist. Vitamin D deficiency A refill for Vitami n D supplementation was provided, with instructions to take the supplement as directed. The patient was counseled on the importance of adherence to prevent persistent deficiency and associated complications, such as bone demineralization and increased fracture risk. He was advised to report any symptoms suggestive of hypercalcemia, including nausea, vomiting, or confusion, which could indicate excessive supplementation. The patient was encouraged to maintain a balanced diet and consider safe sun exposure as additional measures to support vitamin D levels. snf current use of opiate analgesi c iStop checked today. Patient made aware of drug addictive potential. Patient advised not to take medication, drink, drive or operate heavy machinery. Advised patient can from respiratory depression. Patient voiced understanding. Other By signing my name below, Stu Rosales, attest that this documentation has been prepared under the direction and in the presence of José Miguel Villegas MD I, Rajan Gulati personally performed the services described in this documentation. All medical record entries made by the scribe were at my direction and in my presence. I have reviewed the chart and discharge instructions and agree that the record reflects my personal performance and is accurate and completed. Electronically Signed: José Miguel Villegas MD Next Appt Details Follow Up: 4 Weeks, Reason: Provider Name:MARY TRAORE, 10:00:00 AM, [address], [place], [address], Medications Administered Medication Instructions Date of Administration Dosage Notes Toradol IM 03/07/2025 60 mg Progress Notes * Tino CERVANTESDOB:1965 ([age] yo M)Acc No.[id number]:03/07/2025 progress notes Patient: Tino Art Provider: Brodie VILLEGAS MD :1965 A ge:59 Y S ex:Male Date:03/07/2025 Address:[address] [place] [address] [address], [address], [facility] Check Out:03:59 PM EST Subjective: * Chief Complaints: * [phone] management of chronic lumbar pain, insomnia , seasonal allergies, and vitamin D deficiencyRates pain level as 10/10Requesting Toradol injectionOxycodone, Tramadol, Ambien- 30 day supply, Montelukast, and Vitamin D. [facility] - Start 1. Sleep Study Recommended: [...] - - - - - - - [facility] - End * HPI: Bernardino vitale's Visit: The patient is a 59-year-old male presenting via telemedicine for ongoing management of multiple chronic conditions, including lumbar radiculopathy, insomnia, seasonal allergies, and vitamin D deficiency. He reports persistent severe lower back pain radiating to the lower extremities, rating his pain as 10/10. He is currently managed with Oxycodone and Tramadol for pain, Ambien for insomnia, Montelukast for allergies, and Vitamin D supplementation. The patient requests refills for all these medications and specifically requests a Toradol injection for acute pain exacerbation. He denies any side effects from his current medications and states that they are effective. TREATMENT PLAN: The patient's medical history was reviewed and medications were reconciled.Refills for Oxycodone, Tramadol, Ambien, Montelukast, and Vitamin D were provided as the patient reported good efficacy and no adverse effects. The SKIN THERAPIST I-STOP was reviewed to ensure appropriate use and monitoring of medication. A Toradol (ketorolac) 60 mg intramuscular injection was ordered to address acute exacerbation of back pain. The patient was counseled on the risks and benefits of opioid and NSAID use, including potential side effects, risk of dependence, gastrointestinal, renal, and cardiovascular complications, and the importance of adherence to prescribed regimens. Non-pharmacological strategies such as physical therapy, stretching, and ergonomic modifications were discussed as adjuncts to pharmacologic therapy. The patient was advised to monitor for any new or worsening symptoms, including signs of medication side effects, and to seek prompt medical attention if these occur. Follow-up was recommended within 1 month or sooner if symptoms worsen. * Medical History: Low back pain Essential hypertension Carpal tunnel syndrome of right wrist Obesity Asthma Lumbar disc disorder GERD Primary insomnia Medical History Verified * Surgical History: Lipoma left flank removal R wrist surgery- carpel tunnel surgery 06/06/2019 Surgical History verified. * Hospitalization/Major Diagno stic Procedure: same as above Hospitalization Verified. * Family History: M igrated Family Hx: Mother: Cancer ; Mother: Diabetes ;. F amily History Verified.. mother liver problems. * Social History: Social History Verified. d enies smoking. * Medications: T akingAlbuterol Sulfate HFA 108 [...] 1 puff Inhalation Once a day Taking Albuterol Sulfate HFA [...] Activated 1 puff Inhalation Once a day Not-TakingAzelastine HCl 137 MCG/SPRAY Solution 1 puff in each nostril Nasally Twice a day GaviLyte-C 240 GM Solution Reconstituted milliliter Orally prescribe oxyCODONE HCl 5 MG Tablet 1 tablet as needed Orally every 6 hrs Sutab 0394-119-197 MG Tablet 12 tablets the first dose the evening before and second dose the morning of colonoscopy Orally Twice a day Zithromax Z-Kody 250 MG Tablet 2 tablets on the first day, then 1 tablet daily for 4 days Orally Once a day Not-Taking Azelastine HCl 137 MCG/SPRAY Solution 1 puff in each nostril Nasally Twice a day Not-Taking GaviLyte-C 240 GM Solution Reconstituted milliliter Orally prescribe Not-Taking oxyCODONE HCl 5 MG Tablet 1 tablet as needed Orally every 6 hrs Not- Taking Sutab 4049-380-776 MG Tablet 12 tablets the first dose the evening before and second dose the morning of colonoscopy Orally Twice a day Not-Taking Zithromax Z-Kody 250 MG Tablet 2 tablets on the first day, then 1 tablet daily for 4 days Orally Once a day * Allergies: N .K.D.A.yesAllergies Verified. Assessment: * Assessment: 1. L umbar radiculopathy - M54.16 2 . P rimary insomnia - F51.01 3 . S easonal allergies - J30.2 4 . V itamin D deficiency - E55.9 5 . L marbella term current use of opiate analgesic - Z79.891 The patient is a 59-year-old male presenting via telemedicine for ongoing management of multiple chronic conditions, including lumbar radiculopathy, insomnia, seasonal allergies, and vitamin D deficiency. He reports persistent severe lower back pain radiating to the lower extremities, rating his pain as 10/10. He is currently managed with Oxycodone and Tramadol for pain, Ambien for insomnia, Montelukast for allergies, and Vitamin D supplementation. The patient requests refills for all these medications and specifically requests a Toradol injection for acute pain exacerbation. He denies any side effects from his current medications and states that they are effective. MEDICAL DECISION MAKING AND DIFFERENTIAL DIAGNOSIS: The patient's primary concern is severe lumbar radiculopathy, with a pain score of 10/10 despite ongoing opioid and non-opioid analgesic therapy. Differential diagnoses for his back pain include lumbar disc herniation, spinal stenosis, and musculoskeletal strain, but the chronicity and response to current therapy support the diagnosis of lumbar radiculopathy. Insomnia is likely multifactorial, possibly exacerbated by chronic pain and opioid use. Seasonal allergies are well- controlled on Montelukast, and vitamin D deficiency is managed with supplementation. The patient's request for a Toradol injection was considered appropriate for acute pain exacerbation, given the lack of reported side effects and the need for multimodal pain management. Continued monitoring for opioid-related adverse effects and potential medication interactions is warranted. TREATMENT PLAN: The patient's medical history was reviewed and medications were reconciled.Refills for Oxycodone, Tramadol, Ambien, Montelukast, and Vitamin D were provided as the patient reported good efficacy and no adverse effects. The SKIN THERAPIST I-STOP was reviewed to ensure appropriate use and monitoring of medication. A Toradol (ketorolac) 60 mg intramuscular injection was ordered to address acute exacerbation of back pain. The patient was counseled on the risks and benefits of opioid and NSAID use, including potential side effects, risk of dependence, gastrointestinal, renal, and cardiovascular complications, and the importance of adherence to prescribed regimens. Non-pharmacological strategies such as physical therapy, stretching, and ergonomic modifications were discussed as adjuncts to pharmacologic therapy. The patient was advised to monitor for any new or worsening symptoms, including signs of medication side effects, and to seek prompt medical attention if these occur. Follow-up was recommended within 1 month or sooner if symptoms worsen. FOLLOWUP DISCUSSION: The patient was scheduled for a follow-up appointment in one month to evaluate the effectiveness of the current treatment plan and to monitor for any side effects or complications. Plan: * Treatment: 2. P rimary insomnia Refill Ambien Tablet, 10 MG, 1 tablet at bedtime as needed, Orally, Once a day, 30 days, 30, Refills 0. Notes:A refill for Ambien (zolpidem) was provided, with instructions to use the medication strictly as prescribed to minimize the risk of dependence, next-day drowsiness, cognitive impairment, and other potential side effects. The patient was advised to avoid concurrent use of other central nervous system depressants or alcohol while taking Ambien. The importance of adherence to the prescribed regimen was discussed, as non-adherence could lead to persistent insomnia, impaired daytime functioning, or increased risk of accidents. Non-pharmacological interventions, including sleep hygiene practices and consideration of cognitive behavioral therapy for insomnia, were recommended as adjunctive measures. 3. S easonal allergies Refill Montelukast Sodium Tablet, 10 MG, TAKE 1 TABLET BY MOUTH EVERY DAY, 90, 90 Tablet, Refills 0. Notes:A refill for Montelukast was provided to continue management of the patient's seasonal allergies. The patient was advised to take the medication daily as prescribed and was informed about potential side effects, including headache, abdominal pain, and rare neuropsychiatric events. The importance of adherence was emphasized, as non-adherence could result in recurrence or worsening of allergy symptoms. The patient was also encouraged to avoid known allergens and consider adjunctive non-pharmacological measures, such as nasal saline irrigation, if symptoms persist. 4. V itamin D deficiency Refill Vitamin D (Ergocalciferol) Capsule, 1.25 MG (23032 UT), TAKE 1 CAPSULE BY MOUTH ONE TIME PER WEEK FOR 90 DAYS, 90, 12 Capsule, Refills 0. Notes:A refill for Vitamin D supplementation was provided, with instructions to take the supplement as directed. The patient was counseled on the importance of adherence to prevent persistent deficiency and associated complications, such as bone demineralization and increased fracture risk. He was advised to report any symptoms suggestive of hypercalcemia, including nausea, vomiting, or confusion, which could indicate excessive supplementation. The patient was encouraged to maintain a balanced diet and consider safe sun exposure as additional measures to support vitamin D levels. 5. L marbella term current use of opiate analgesic Notes: iStop checked today. Patient made aware of drug addictive potential. Patient advised not to take medication, drink, drive or operate heavy machinery. Advised patient can from respiratory depression. Patient voiced understanding. 6. O thers Notes: By signing my name below, Stu Rosales, attest that this documentation has been prepared under the direction and in the presence of José Miguel Villegas MD I, Rajan Gulati personally performed the services described in this documentation. All medical record entries made by the scribe were at my direction and in my presence. I have reviewed the chart and discharge instructions and agree that the record reflects my personal performance and is accurate and completed. Electronically Signed: José Miguel Villegas MD Clinical Notes: By signing my name below, Syeda Rosales, attfrank that this documentation has been supervised by me under the direction and in the presence of José Miguel Villegas MD Electronically Signed: Syeda Roe * Therapeutic Injections: Toradol IM : 60 mg (Pending) (Lumbar radiculopathy) * Procedure Codes: G 2211 Complex e/m visit add on * Follow Up: 4 Weeks Billing Information: * Procedure Codes: G2211 Complex e/m visit add on. * Electronic signature of WILLIAMS VILLEGAS MD, [id number] on 06/03/2025 at 10:23 AM EDT Sign off status: Pending * Provider: Brodie VILLEGAS MD Date: 0 03/07/2025 Generated for Lalita castro/Florian/Vincentitting on: 1 10:23 AM EDT
--- OUTSIDE RECORDS SUMMARY | 2025-03-13 10:15 | XMS_ITS ---
Author Organization [facility] C Address [address] [place] [address] Care Team Providers Care Language And Literature Division Chair Name Role Phone BEBETO VILLEGAS Primary Care Provider CHANTAL DALLAS Unavailable [phone] REASON FOR VISIT b-12, tordol shot Encounters Encounter Location Date Provider Diagnosis [facility] [address] [place] [address] 03/13/2025 BEBETO VILLEGAS Plan Of Treatment Next Appt Details Provider Name:MARY TRAORE, 10:00:00 AM, [address] [place], [address], Medications Administered Medication Instructions Date of Administration Dosage Notes Vitamin B12 Injection up to 1000mcg 03/13/2025 1000 ug Toradol IM 03/13/2025 60 mg Progress Notes * Tino CERVANTESDOB:1965 ([age] yo M)Acc No.[id number]:03/13/2025 Progress Note Patient: Tino Art Provider: Brodie VILLEGAS MD :1965 A ge:59 Y S ex:Male Date:03/13/2025 Address:[address], [address], [id number] Check In:02:15 PM ESTCheck O ut:02:33 PM EST Subjective: * Chief Complaints: * B -12, tordol shot Plan: * Therapeutic Injections: Vitamin B12 Injection up to 1000mcg : 1000 mcg (Route: Subcutaneous) given by Nena Wix on left gluteus Toradol IM : 60 mg (Route: Intramuscular) given by Nena Wix on right gluteus * Procedure Codes: J 3420 INJ VIT B-12 CYNOCOBLMN TO 1000 [id number] THER/PROPH/DIAG INJ, [id number] INJ KETOROLAC TROMETHAMINE 15 MG, Units: 4.00 Billing Information: * Procedure Codes: J3420 INJ VIT B-12 CYNOCOBLMN TO 1000 [address]CG. 22586 THER/PROPH/DIAG INJ, SC/IM. J1885 INJ KETOROLAC TROMETHAMINE 15 MG. Units: 4.00. * Electronic signature of WILLIAMS VILLEGAS MD, [id number] on 06/03/2025 at 10:24 AM EDT Sign off status: Pending * Provider: Brodie VILLEGAS MD Date: 0 03/13/2025 Generated for Lalita castro/Florian/Oni on: 1 10:24 AM EDT
--- OUTSIDE RECORDS SUMMARY | 2025-03-21 09:15 | XMS_ITS ---
Author Organization [facility] Address [address] [place] [address] Care Team Providers Care Product Assurance Engineer Name Role Phone BEBETO VILLEGAS Primary Care Provider CHANTAL DALLAS Unavailable [phone] JANET QUACH Unavailable [phone] REASON FOR VISIT Right Hip (new issue-needs X-rays) Encounters Encounter Location Date Provider Diagnosis [address] [place] [address] 03/21/2025 JANET QUACH Plan Of Treatment Next Appt Details Provider Name:MARY TRAORE, 10:00:00 AM, [address], [place], [address], Progress Notes * CERVANTES TinoDOB:1965 ([age] yo M)Acc No.[id number]:03/21/2025 Progress Notes Patient: Tino Art Provider: Patricia QUACH MD :1965 A ge:59 Y S ex:Male Date:03/21/2025 Address:[address], [address], [place], [place] Pcp:BEBETO VILLEGAS Subjective: * Chief Complaints: * R ight Hip (new issue-needs X-rays) * Electronic signature of NITIN QUACH MD, [id number] on 06/03/2025 at 10:23 AM EDT Sign off status: Pending * Provider: Patricia QUACH MD Date: 0 03/21/2025 Generated for Lalita castro/Florian/Vincentitting on: 1 10:23 AM EDT
--- OUTSIDE RECORDS SUMMARY | 2025-04-10 09:00 | XMS_ITS ---
Author Organization [facility] Address [address] [place] [address] Care Team Providers Care Proofing Machine Operator Name Role Phone BEBETO VILLEGAS Primary Care Provider [phone] CHANTAL DALLAS Unavailable [phone] JANET QUACH Unavailable [phone] REASON FOR VISIT RT Hip New Condition, Lumbar Spine, Ribs Pain 09/12/2024 - ref. by Dr. Villegas Encounters Encounter Location Date Provider Diagnosis [address] [facility] [address] [place] [address] 04/10/2025 JANET QUACH Encounter related to worker's [...] Name:MARY LEÓN, 10:00:00 AM, [address], [place], [address], History and Physical Notes * HPI (History of Present Illness) Category Sub-Category Detail Notes Category Not es Today's Visit _ [facility] Order Date: 09/13/2024 Performed Date: 09/13/2024 14:16:00 Transcribed: 09/13/2024 15:11:15 Requesting Physician: IRENE GUALLPA Ordering Physician: IRENE GUALLPA X-ray Lumbar Spine 3V (A/P, Lat, Spot)* REPORT Exam: CLINICAL INFORMATION: Back pain after injury. TECHNIQUE: X-Ray Lumbar Spine, 3 View(s) COMPARISON: 08/02/2024. FINDINGS:Alignment: Vkna-et-wuucmfad convex right thoracolumbar scoliosis. Stablemild grade 1 [...] considered. 15:Tino Morgan M ,1965 Accession ID: [id number] Images viewed on PACS. I agree with the report. [facility] Procedure Date: 09/13/2024 Procedure ID: [id number] Procedure Name: CT Abdomen/Pelvis w* Procedure Notes: [...] PACS. I agree with the report. ____ [facility] Procedure Date: 09/13/2024 Procedure ID: [id number] Procedure Name: X-ray Ribs 3V, right* Procedure [...] * Tino CERVANTESDOB:1965 ([age] yo M)Acc No.[id number]:04/10/2025 Progress Notes Patient: Tino Art Provider: Patricia QUACH MD :1965 A ge:59 Y S ex:Male Date:04/10/2025 Address:[facility] [address], [place], [id number] Pcp:BEBETO VILLEGAS Subjective: * Chief Complaints: * R T Hip New ConditionLumbar Spine, Ribs Pain 09/12/2024 - ref. by Dr. 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 On the way down there was no railings he slipped on the first step, slid down a few stepsand h it his right ribs and the back region on the steps. and he slipped and fell injuring his lower back and his ribs. He was seen at [facility] where broken ribs were found. He was [...] aggravated by movement. Symptoms relieved by Oxycodone. [facility] Order Date: 09/13/2024 Performed Date: 09/13/2024 1 4:16:00 Transcribed: 0 09/13/2024 1 5:11:15 Requesting Physician: IRENE GUALLPA Ordering Physician: IRENE GUALLPA X-ray Lumbar Spine 3V (A/P, Lat, Spot)* REPORT Exam: CLINICAL INFORMATION: Back pain after injury. TECHNIQUE: X-Ray Lumbar Spine, 3 View(s) COMPARISON: 08/02/2024. FINDINGS:Alignment: Tlwe-en-jcwrpcwr convex right thoracolumbar scoliosis. Stablemild grade 1 [...] considered. 15:Tino Morgan M ,1965 Accession ID: [id number] Images viewed on PACS. I agree with t he report. [facility] Procedure Date: 09/13/2024 Procedure ID: [id number] Procedure Name: CT Abdomen/Pelvis w* Procedure Notes: [...] 09/13/2024 Report Electronically Signed By: MD Jason, [employer] viewed on [email or web address]. I agree with t emely report. [facility] Procedure Date: 09/13/2024 Procedure ID: [id number] Procedure Name: X-ray Ribs 3V, right* Procedure [...] 09/13/2024 Report Electronically Signed By: MD Jason, [employer] viewed on [email or web address]. I agree with t emely report. * [...] * Electronic signature of NITIN QUACH MD, [id number] on 06/03/2025 at 10:24 AM EDT Sign off status: Pending * Provider: Patricia QUACH MD Date: 0 04/10/2025 Generated for Lalita castro/Florian/eTransmitting on: 1 10:24 AM EDT
--- OUTSIDE RECORDS SUMMARY | 2025-05-27 09:15 | XMS_ITS ---
Author Organization [facility] Address [address] [place] [address] Care Team Providers Care Herbicide Sprayer Name Role Phone JOSÉ MIGUEL VILLEGAS Primary Care Provider [phone] CHANTAL DALLAS Unavailable [phone] Allergies No Known Allergies REASON FOR VISIT [...] HOURS PRN; Duration: 30 days Unknown Sutab 8090-604-593 MG Tablet 12 tablets the first dose [...] days Unknown Vitamin D (Ergocalciferol) 1.25 MG (82416 UT) Capsule TAKE 1 CAPSULE BY MOUTH [...] smoking Encounters Encounter Location Date Provider Diagnosis [place] [address] [address] 05/27/2025 JOSÉ MIGUEL VILLEGAS Lumbar radiculopathy M54.16 ; Abdominal pain R10.84 ; halfway current use of opiate analgesic Z79.891 and [...] dependence, sedation, constipation, and respiratory depression. The [employer] SUPERINTENDENT I-STOP was reviewed to ensure appropriate use [...] times daily for chronic pain management. The [employer] SUPERINTENDENT I-STOP was reviewed for appropriate use. 2. [...] dependence, sedation, constipation, and respiratory depression. The [employer] SUPERINTENDENT I-STOP was reviewed to ensure appropriate use [...] times daily for chronic pain management. The [employer] SUPERINTENDENT I-STOP was reviewed for appropriate use. 2. [...] if new symptoms or concerns arise. 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 The [employer] SUPERINTENDENT I-STOP was reviewed to ensure appropriate use [...] times daily for chronic pain management. The [employer] SUPERINTENDENT I-STOP was reviewed for appropriate use. 2. [...] dependence, sedation, constipation, and respiratory depression. The [employer] SUPERINTENDENT I-STOP was reviewed to ensure appropriate use [...] times daily for chronic pain management. The [employer] SUPERINTENDENT I-STOP was reviewed for appropriate use. 2. [...] direction and in the presence of José Mgiuel Villegas MD Electronically Signed: Syeda Roe Medical Decision Making (MDM) and Treatment Plan: The patient was evaluated for chronic lumbar radiculopathy , ongoing abdominal pain, and medication management. His medication list was reviewed and reconciled. Oxycodone 10 mg three times daily was prescribed for pain management, with counseling on the risks of long-term opioid therapy including dependence, sedation, constipation, and respiratory depression. The [employer] SUPERINTENDENT I-STOP was reviewed to ensure appropriate use [...] times daily for chronic pain management. The [employer] SUPERINTENDENT I-STOP was reviewed for appropriate use. 2. [...] with IV and PO contrast for evaluation. intermediate frame tender current use of opiate analgesi c iStop [...] Name:MARY LEÓN, 10:00:00 AM, [address], [place], [address], History and Physical Notes * HPI (History [...] * Chu CERVANTES:1965 ([age] yo M)Acc No.[id number]:05/27/2025 progress notes Patient: Tino Art Provider: Brodie VILLEGAS MD :1965 A ge:59 Y S ex:Male Date:05/27/2025 Address:[facility] [address], [address], [facility] Check Out:02:28 PM EST Subjective: * Chief Complaints: * R equests pain medicationAlso, reports abdominal pain and requests imaging. [employer] - Start 1. Sleep Study Recommended: [...] - - - -2. Last Colonoscopy: 01/19/2018 [employer] - End * HPI: H PI: [...] day Spirometer - Kit as directed Sutab [id number] MG Tablet 12 tablets the first dose the evening before and second dose the morning of colonoscopy Orally Twice a day tiZANidine HCl 4 MG Tablet TAKE 1 TABLET BY MOUTH THREE TIMES A DAY Trelegy Ellipta 100-62.5-25 MCG/ACT Aerosol Powder Breath Activated 1 puff Inhalation Once a day Vitamin D (Ergocalciferol) 1.25 MG (41831 UT) Capsule TAKE 1 CAPSULE BY MOUTH [...] Spirometer - Kit as directed Unknown Sutab 9662-775-659 MG Tablet 12 tablets the first dose the evening before and second dose the morning of colonoscopy Orally Twice a day Unknown tiZANidine HCl 4 MG Tablet TAKE 1 TABLET BY MOUTH THREE TIMES A DAY Unknown Trelegy Ellipta 100-62.5-25 MCG/ACT Aerosol Powder Breath Activated 1 puff Inhalation Once a day Unknown Vitamin D (Ergocalciferol) 1.25 MG (90065 UT) Capsule TAKE 1 CAPSULE BY MOUTH [...] dependence, sedation, constipation, and respiratory depression. The [employer] SUPERINTENDENT I-STOP was reviewed to ensure appropriate use [...] times daily for chronic pain management. The [employer] SUPERINTENDENT I-STOP was reviewed for appropriate use. 2. [...] * Electronic signature of WILLIAMS VILLEGAS MD, [id number] on 06/03/2025 at 10:24 AM EDT Sign off status: Pending * Provider: Brodie VILLEGAS MD Date: Generated for Lalita castro/Florian/Vincentitting on: 10:24 AM EDT
--- OUTSIDE RECORDS SUMMARY | 2025-05-29 09:00 | XMS_ITS ---
Author Organization [facility] Address [address] [place] [address] Care Team Providers Care Dot Compliance Specialist Name Role Phone BEBETO VILLEGAS Primary Care Provider [phone] CHANTAL DALLAS Unavailable [phone] Abdomen/Pelvis w* Encounters Encounter Location Date Provider Diagnosis [address] [place] [address] 05/29/2025 BEBETO VILLEGAS Plan Of Treatment Next Appt Details Provider Name:MARY TRAORE, 10:00:00 AM, [address], [place], [address], Progress Notes * Tino CERVANTESDOB:1965 ([age] yo M)Acc No.[id number]:05/29/2025 Progress Note Patient: Tino Art Provider: Brodie VILLEGAS MD :1965 A ge:59 Y S ex:Male Date:05/29/2025 Address:[address], [address], [place], [place] Subjective: * Chief Complaints: * C T Abdomen/Pelvis w* * Electronic signature of WILLIAMS VILLEGAS MD, [id number] on 06/03/2025 at 10:23 AM EDT Sign off status: Pending * Provider: Brodie VILLEGAS MD Date: Generated for Joycelyni ng/Florian/eTransmitting on: 1 10:23 AM EDT
--- OUTSIDE RECORDS SUMMARY | 2025-06-02 11:00 | XMS_ITS ---
Author Organization [facility] Address [address] [place] [address] Care Team Providers Care High School Coordinator Name Role Phone JOSÉ MIGUEL VILLEGAS Primary Care Provider CHANTAL DALLAS Unavailable [phone] Allergies No Known Allergies REASON FOR VISIT Requesting routine bw Medications Medication SIG (Take, Route, Frequency, Duration) Notes Start Date End Date Status Sutab [id number] MG Tablet 12 tablets the first dose [...] 07/26/2024 Active Vitamin D (Ergocalciferol) 1.25 MG (41540 UT) Capsule TAKE 1 CAPSULE BY MOUTH [...] 06/02/2025 Encounters Encounter Location Date Provider Diagnosis [address] [place] [address] 06/02/2025 JOSÉ MIGUEL NELLY Abdominal pain R10.8 4 ; Essential hypertension [...] 06/02/2025 PSA Antigen-[facility] 06/02/2025 Thyroid Stimulating Hormone 4-Sricf-X[facility] 06/02/2025 Vitamin D Total-[facility] 06/02/2025 Comp Metabolic Panel (14)-[facility] 06/02 Lipid Panel-[facility] 06/02/2025 Hemoglobin A1c * 49123 06/09/2025 ESR (sed rate) * 59713 06/09/2025 CBC W/DIFF with Refx to Retic (new) IN H OUSE *2116* 06/09/2025 Next Appt Details Follow Up: post BW results, Reason: Provider Name:MARY TRAORE, 10:00:00 AM, [address], [place], [address], History and Physical Notes * HPI (History [...] * Tino CERVANTESDOB:1965 ([age] yo M)Acc No.[id number]:06/02/2025 progress notes Patient: Tino Art Provider: Brodie VILLEGAS MD :1965 A ge:59 Y S ex:Male Date:06/02/2025 Address:[address] [place] [address] JAMES Marcano, [address] [facility], [id number] Check Out:03:37 PM EST Subjective: [...] day Spirometer - Kit as directed Sutab [id number] MG Tablet 12 tablets the first dose the evening before and second dose the morning of colonoscopy Orally Twice a day tiZANidine HCl 4 MG Tablet TAKE 1 TABLET BY MOUTH THREE TIMES A DAY Trelegy Ellipta 100-62.5-25 MCG/ACT Aerosol Powder Breath Activated 1 puff Inhalation Once a day Vitamin D (Ergocalciferol) 1.25 MG (97162 UT) Capsule TAKE 1 CAPSULE BY MOUTH [...] Spirometer - Kit as directed Taking Sutab 9626-699-825 MG Tablet 12 tablets the first dose the evening before and second dose the morning of colonoscopy Orally Twice a day Taking tiZANidine HCl 4 MG Tablet TAKE 1 TABLET BY MOUTH THREE TIMES A DAY Taking Trelegy Ellipta 100-62.5-25 MCG/ACT Aerosol Powder Breath Activated 1 puff Inhalation Once a day Taking Vitamin D (Ergocalciferol) 1.25 MG (67328 UT) Capsule TAKE 1 CAPSULE BY MOUTH [...] Procedure Codes: 3 008F BODY MASS INDEX [id number] Complex e/m visit add on * Follow Up: p ost BW results Billing Information: * Procedure Codes: 3008F BODY MASS INDEX DOCD. G2211 Complex e/m visit add on. * Electronic signature of WILLIAMS VILLEGAS MD, [id number] on 06/03/2025 at 10:23 AM EDT Sign off status: Pending * Provider: Brodie VILLEGAS MD Date: Generated for Lalita castro/Florian/Vincentitting on: 10:23 AM EDT
--- OUTSIDE RECORDS SUMMARY | 2025-06-02 11:00 | XMS_ITS | Encounter Summary ---
Author Organization [employer] Address [address] [place] [address] Care Team Providers Care Pipe Inspector Name Role Phone Missy Mcwilliams MD Primary Care Provider [phone] Reason for Referral * Consultation (Routine) - Pending Review Specialty Diagnoses / Procedures Referred By Kerri rodrigues Referred To Contact General Surgery Diagnoses Periumbilical hernia Missy Mcwilliams MD [address] [place] [address] Phone: tel: fax: Referral ID Status Reason Start Date Expiration Date Visits Requested Visits Authorized [id number] Pending Review Specialty Services Required 06/02/2026 1 1 * Medications - Closed Specialty Diagnoses / Procedures Referred By Kerri rodrigues Referred To Contact Diagnoses Lumbar radiculopathy Missy Mwcilliams MD [address] [place] [address] Phone: tel: fax: Referral ID Status Reason Start Date Expiration Date Visits Re quested Visits Authorized [id number] Closed 1 1 Encounter Details Date Type Department Care Team ([facility] st Contact Info) Description 06/02/2025 11:00 AM EDT Office Visit [facility] CHC MED & PEDS [address] [place] [address] Missy Mcwilliams MD [address], [place] [phone] Long-term current use of opiate analgesic (Primary Dx); Lumbar radiculopathy; Periumbilical hernia Social History Tobacco Use Types Packs/Day Years Used Date Smoking Tobacco: Never Passive Smoke Exposure: Current Smokeless Tobacco: Never Alcohol Use Standard Drinks/Week Comments Never 0 (1 standard drink = 0.6 oz pur e alcohol) Depression Answer Date Recorded Patient Health Questionnaire-9 Score 22 06/02/2025 Patient Health Questionnaire-9 Score 22 06/02/2025 Last PHQ-9: Questionnaire Data Not on file 1 Housing Stability Answer Date Recorded What is your housing situation today? I do not have housing (Staying with others, in a hotel, in a half-way, living outside on the street, on a beach, in a car, or in a park 06/02/[address] you li ve. Do you have problems with any of the following? None of the above 06/02/2025 Food Insecurity Answer Date Recorded Within the past 12 months, y ou worried that your food would run out before you got money to buy more: Sometimes True 2024 Within the past 12 months,th e food you bought just didn't last and you didn't have enough money to get more: Often true 06/02/2025 Transportation Answer Date Recorded In the past 12 months, has l ack of transportation kept you from medical appts, meetings, work or from getting things needed for daily living? Yes, it has kept me from medical appointments or getting medications. 06/02/2025 Utilities Answer Date Recorded In the past 12 months, has t he electric, gas, oil or water company threatened to shut off services in your home? No 06/02/2025 Depression Answer Date Recorded Patient Health Questionnaire-2 Score 5 06/02/2025 Internet Access Answer Date Recorded Internet Access Q1 Yes 06/02/2025 Internet Access Q2 Not on file 06/02/2025 Sex and Gender Information Value Date Recorded Sex Assigned at Male 03/26/2025 2:32 PM EDT Legal Sex Male 11:12 AM EDT Gender Identity Male 03/26/2025 2:32 PM EDT Sexual Orientation Straight 03/26/2025 2: 32 PM EDT documented as of this encounter Last Filed Vital Signs Vital Sign Reading Time Taken Comments Blood Pressure 152/98 06/02/2025 11:16 AM EDT Pulse 72 06/02/2025 11:16 AM EDT Temperature 36.7 C (98.1 F) 06/02/2025 11:16 AM EDT Respiratory Rate 20 06/02/2025 11:16 AM EDT Oxygen Saturation 98% 06/02/2025 11:16 AM EDT Inhaled Oxygen Concentration - - Weight 89.9 kg (198 lb 3.2 oz) 06/02/2025 11:16 AM EDT Height 167.6 cm (5' 6 ) 06/02/2025 11:16 AM EDT Body Mass Index 31.99 06/02/2025 11:16 AM EDT documented in this encounter Functional Status * Over the past 2 weeks, how often have you been bothered by any of the following problems? Question Answer Date of Assessment Author Patient Health Questionnaire -2 Score 5 06/02/2025 11:19 AM EDT Chano Frazier [place] * Little interest or pleasure in doing things Answer Date of Assessment Author Nearly every day 06/02/2025 11:19 AM EDT Chano Frazier MA * Feeling down, depressed, or hopeless Answer Date of Assessment Author More than half the days 06/02/2025 11:19 AM EDT Chano Frazier MA * Trouble falling or staying asleep, or sleeping too much Answer Date of Assessment Author Nearly every day 06/02/2025 11:19 AM EDT Chano Frazier MA * Feeling tired or having little energy Answer Date of Assessment Author Nearly every day 06/02/2025 11:19 AM EDT Chano Frazier MA * Poor appetite or overeating Answer Date of Assessment Author More than half the days 06/02/2025 11:19 AM EDT Chano Frazier MA * Feeling bad about yourself - or that you are a failure or have let yourself or your family down Answer Date of Assessment Author Nearly every day 06/02/2025 11:19 AM EDT Chano Frazier MA * Trouble concentrating on things, such as reading the newspaper or watching television Answer Date of Assessment Author More than half the days 06/02/2025 11:19 AM EDT Chano Frazier MA * Moving or speaking so slowly that other people could have noticed? Or the opposite - being so fidgety or restless that you have been moving around a lot more than usual. Answer Date of Assessment Author More than half the days 06/02/2025 11:19 AM Chano Johnson MA * Thoughts that you would be better off or hurting yourself in some way Answer Date of Assessment Author More than half the days 06/02/2025 11:19 AM Chano Johnson MA * Patient Health Questionnaire-9 Score Answer Date of Assessment Author 22 06/02/2025 11:19 AM Chano Johnson MA * How difficult have these problems made it for you to do your work, take care of things at home, or get along with other people? Answer Date of Assessment Author Very difficult 06/02/2025 11:19 AM Chano Johnson MA documented as of this encounter Plan of Treatment Upcoming Encounters Date Type Department Care Team (Late st Contact Info) Description 06/19/2025 1:00 PM EST Clinical Support [facility] MED & PEDS [address] [place] [address] Mirta Valerio RN [address] [place] [address] 06/19/2025 2:30 PM EST Clinical Support [facility] [address] [place] [address] 07/22/2025 10:15 AM EST Office Visit [facility] MEDICINE [address] [place] [address] Name, MD Nestor [address] [place] [address] Scheduled Referrals Name Type Priority Associated Diagnoses Orde r Schedule Referral to General Surgery Outpatient Referral Routine Periumbilical hernia Expected: 06/02/2025 (Approximate), Expires: 06/02/2026 documented as of this encounter Visit Diagnoses Diagnosis Long-term current use of opiate analgesic- Primary Encounter for long-term (current) use of other medications Lumbar radiculopathy Thoracic or lumbosacral neuritis or radiculitis, unspecified Periumbilical hernia Umbilical hernia without mention of obstruction or gangrene documented in this encounter Additional Health Concerns Assessment Noted Time PHQ-9 Depression Total Score: 22 025 11:19 AM EDT documented as of this encounter Care Teams Pipe Inspector Relationship Specialty Start Date End Date Missy Mcwilliams MD [address] [place] [address] PCP - General Family Medicine 03/31/25 documented as of this encounter
--- NOTE | 2025-06-03 | EMG_ITS ---
Chief complaint:?M25.532 Pain in left wrist Reason for referral: Left wrist pain Referred by:?Missy Mcwilliams MD Procedure done: Left upper extremity NCS/EMG Left median and ulnar motor studies were performed. Left radial sensory study was performed and median and lateral mixed sensory studies were performed. EMG needle examination was performed. Findings: Left median motor distal latencies was mildly prolonged. Left median mixed distal latencies was moderately prolonged with mildly slow conduction velocity. Impression: [id number]-[id number] left median neuropathy across carpal tunnel Codin 250[address] 1 extremity? MTDD
--- OUTSIDE RECORDS SUMMARY | 2025-06-03 10:23 | XMS_ITS | Encounter Summary ---
Author Organization [employer] Address [address] [place] [address] 7 [place] [address] Care Team Providers Care Jewelry Technician Name Role Phone Missy Mcwilliams MD Primary Care Provider [phone] Reason for Visit * Reason Onset Date Comments Chart Prep 05/30/2025 Encounter Details Date Type Department Care Team ([facility] st Contact Info) Description 05/30/2025 Telephone [facility] CHC MED & PEDS [address] [place] [address] Missy Mcwilliams MD [address] [place] [address] Chart Prep Social History Tobacco Use Types Packs/Day Years [...] encounter Miscellaneous Notes * Telephone Encounter - Phyllis Motta MA - 05/30/2025 11:35 AM EDT Chart Prep Labs: not done Images: not done Referrals: complete Vaccines due: due Screenings: colonoscopy and STI screening Overdue care gaps: SBIRT, SDOH, PHQ-9, and Disability screen documented in this encounter Plan of Treatment Upcoming Encounters Date Type Department Care Team (Late st Contact Info) Description 06/19/2025 1:00 PM EST Clinical Support [facility] MED & PEDS [address] [place] [address] Mirta Valerio, ENZO [address] [place] [address] 06/19/2025 2:30 PM EST Clinical Support [facility] MED & PEDS [address] [place] [address] 07/22/2025 10:15 AM EST Office Visit [facility] MEDICINE [address] [place] [address] Name, MD Nestor [address] [place] [address] documented as of this encounter Visit Diagnoses Not on filedocumented in this encounter Care Teams Jewelry Technician Relationship Specialty Start Date End Date Missy Mcwilliams MD [address] [place] [address] PCP - General Family Medicine 03/31/25 documented as of this encounter
--- OUTSIDE RECORDS SUMMARY | 2025-06-03 10:23 | XMS_ITS | Clinical Summary ---
Author Organization [employer] Address [address] [place] [address] [address] [place] [address] Care Team Providers Care Acid Remover Name Role Phone Missy Mcwilliams MD Primary Care Provider [phone] Allergies No known active allergies Medications * This document contains information received from the source organization and may not represent a complete record from that organization. albuterol 108 (90 Base) MCG/ACT inhaler Inhale 2 puffs every 4 (four) hours if needed for wheezing. 18 g 025 Active amLODIPine (Norvasc) 10 MG tablet Take 1 tablet (10 mg) by mouth Once per day. 90 tablet Active azelastine (Astelin) 0.1 % nasal spray Administer 1 spray into each nostril 2 times daily. Use in each nostril as directed 30 mL Active Fluticasone-Umec lidin-Vilant (Trelegy Ellipta) 100-62.5-25 MCG/ACT aerosol powder Inhale 1 puff Once per day. 30 each Active lisinopril 5 MG tablet Take 1 tablet (5 mg) by mouth Once per day. 90 tablet 1 025 Active montelukast (Singulair) 10 MG tablet Take 1 tablet (10 mg) by mouth at bedtime. 90 tablet 025 Active omeprazole OTC (PriLOSEC OTC) 20 MG EC tablet Take 1 tablet (20 mg) by mouth before breakfast. Do not crush, chew, or split. 90 tablet 025 Active tiZANidine (Zanaflex) 4 MG capsule Take 1 capsule (4 mg) by mouth 3 times daily. 90 capsule 5 Active naloxone (Narcan) 4 mg/0.1 mL nasal sprayIndications :Lumbar radiculopathy Administer 1 spray (4 mg) into affected nostril(s) if needed for opioid reversal. May repeat every 2-3 minutes if needed, alternating nostrils, until medical assistance becomes available. 2 each 2 2025 Active zolpidem (Ambien) 10 MG tablet TAKE 1 TABLET BY MOUTH AT BEDTIME NEEDED FOR SLEEP 15 tablet 1 Active Blood Pressure kit 1 Units Once per day. 1 kit Active oxyCODONE (Roxicodone) 10 MG immediate release tabletIndication s:Lumbar radiculopathy Take 1 tablet (10 mg) by mouth every 6 (six) hours if needed for severe pain for up to 28 days. 112 tablet 2024 Active Blood Pressure kitIndications:P rimary hypertension 1 Units Once per day. 1 kit 025 2024 Discontinued(T herapy completed) zolpidem (Ambien) 10 MG tablet TAKE 1 TABLET BY MOUTH AT BEDTIME NEEDED FOR SLEEP 28 tablet 025 2024 Discontinued(R eorder (will not trigger notification to Pharmacy)) oxyCODONE (Roxicodone) 5 MG immediate release tabletIndication s:Lumbar radiculopathy Take 1 tablet (5 mg) by mouth every 6 (six) hours if needed for severe pain for up to 14 days. Do not start before May 10, 2025. 56 tablet 025 2024 Discontinued(R eorder (will not trigger notification to Pharmacy)) zolpidem (Ambien) 10 MG tablet TAKE 1 TABLET BY MOUTH AT BEDTIME NEEDED FOR SLEEP 28 tablet 1 025 2024 Discontinued(R eorder (will not trigger notification to Pharmacy)) oxyCODONE (Roxicodone) 5 MG immediate release tabletIndication s:Lumbar radiculopathy Take 1 tablet (5 mg) by mouth every 6 (six) hours if needed for severe pain for up to 14 days. 56 tablet 025 2024 Discontinued(T herapy completed) cyclobenzaprine (Flexeril) 10 MG tablet PLEASE SEE ATTACHED FOR DETAILED DIRECTIONS 2024 Discontinued(T herapy completed) Active Problems Problem Noted Date Diagnosed Date Periumbilical hernia 06/02/2025 Severe depression (CMS/HCC) 06/02/2025 LOPEZ (generalized anxiety disorder) 06/02/2025 Long-term current use of opiate analgesic 2024 Elevation of levels of lactic acid dehydrogenase (LDH) 09/02/2024 Essential (primary) hypertension 09/02/2024 Encounters * This document contains information received from the source organization and may not represent a complete record from that organization. Date Type Department Care Team Description 06/02/2025 11:00 AM EDT Office Visit [facility] MED & PEDS [address] [place] [address] Missy Mcwilliams MD Long-term current use of opiate analgesic (Primary Dx); Lumbar radiculopathy; Periumbilical hernia 06/02/2025 Travel 05/30/2025 Telephone [facility] MED & PEDS [address] [place] [address] Missy Mcwilliams MD Chart Prep 05/29/2025 Telephone [facility] [address] [place] [address] Missy Mcwilliams MD Med Refill 05/27/2025 Telephone [facility] MED & PEDS [address] [place] [address] Missy Mcwilliams MD Change PCP 05/22/2025 Telephone [facility] [address] [place] [address] Missy Mcwilliams MD Med Refill 05/22/[address] [address] Missy Mcwilliams MD Med Refill 05/22/2025 Refill [facility] & PEDS [address] [place] [address] Missy Mcwilliams MD 05/21/2025 Refill [facility] PED[facility] [address] [place] [address] Missy Mcwilliams MD 05/21/2025 Refill [facility] PED[facility] [address] [place], [place] [phone] Missy Mcwilliams MD Lumbar radiculopathy 05/15/2025 3:00 PM EDT Clinical Support [facility] MED & PEDS [address] [place], [place] [phone] Mirta Valerio RN Lumbar radiculopathy (Primary Dx); Long-term current use of opiate analgesic 05/15/2025 Travel 05/14/2025 Telephone [facility] MED & PEDS [address] [place], [place] [phone] Missy Mcwilliams MD Referral 05/09/2025 Orders Only [facility] PED[facility] [address] [place], [place] [phone] Luiza Resendiz MD 05/09/2025 Refill [facility] PED[facility] [address] [place], [place] [phone] Missy Mcwilliams MD Lumbar radiculopathy (Primary Dx) 05/05/2025 Telephone [facility] MED & PEDS [address] [place], [place] [phone] Missy Mcwilliams MD Prior Authorization 05/05/2025 Telephone [facility] PEDS [address] [place] [address] Missy Mcwilliams MD Med Refill 04/28/2025 Refill [facility] PED[facility] [address] [place] [address] Missy Mcwilliams MD 04/15/2025 Telephone [facility] P[facility] [address] [place] [address] Mirta Valerio RN 04/15/2025 Telephone [facility] P[facility] [address] [place] [address] Mirta Valerio RN 04/14/2025 Telephone [facility] [address] [place] [address] Mirta Valerio RN 04/14/2025 Telephone [facility] [address] [place] [address] Mirta Valerio RN 04/11/2025 Telephone [facility] [address] [place] [address] Mirta Valerio RN Medication Question 04/10/[address] [address] Missy Mcwilliams MD Medication Question 04/02/[address] [address] Missy Mcwilliams MD FYI 04/01/2025 Telephone [facility] PED[facility] [address] [place] [address] Missy Mcwilliams MD 03/31/[address] [address] Missy Mcwilliams MD Prior Authorization 03/28/2025 1:15 PM EDT Office Visit [facility] MED & PEDS [address] [place] [address] Missy Mcwilliams MD Lumbar radiculopathy (Primary Dx); Dietary counseling; Exercise counseling; Class 1 obesity with serious comorbidity and body mass index (BMI) of 31.0 to 31.9 in adult, unspecified obesity type; Left wrist pain; Cervical pain (neck); Colon cancer screening; Prostate cancer screening; Primary hypertension; Encounter for health-related screening 03/28/2025 Travel 03/20/2025 Patient Outreach [address] [address] Navarro Ariza MD Pre-visit Planning (Pre visit planning LVM ) 03/19/2025 Telephone [facility] MED & PEDS [address] [place] [address] Missy Mcwilliams MD chart prep from Last 3 Months Family History Medical [...] with others, in a hotel, in a retirement, living outside on the street, on a [...] Mass Index 31.99 06/02/2025 11:16 AM EDT Plan of Treatment Upcoming Encounters Date Type Department Care Team (Late st Contact Info) Description 06/19/2025 1:00 PM EST Clinical Support [facility] MED & PEDS [address] [place] [address] Mirta Valerio, ENZO [address] [place] [address] 06/19/2025 2:30 PM EST Clinical Support [facility] & PEDS [address] [place] [address] 07/22/2025 10:15 AM EST Office Visit [facility] [address] [place] [address] Name, MD Nestor [address] [place] [address] Health Maintenance Due Date Last Done Comments CT Colonography 1965 Colonoscopy 1965 Colorectal Cancer Screening 1965 FIT DNA/Cologuard 1967 FIT 1967 FOBT 1965 HIV Screening 1965 Lipid Panel 1965 Sigmoidoscopy 1967 Hepatitis C Screening 10/09/1985 DTaP/Tdap/Td Vaccines (1 - Tdap) 10/09/1986 Hepatitis B Vaccines (1 of 3 - 19+ 3-dose series) 10/09/1986 Depression Monitoring 12/01/2025 06/02/2025 , 06/02/2025 Influenza Vaccine (#1) 2026 Postp oned from 04/07/2025 (Patient Refused) Alcohol/Substance Use Screening 06/02/2026 06/02/2025 COVID-19 Vaccine (1 - 2023-2 5 season) 2026 Postponed from 04/07 (Patient Refused) Disability Screening 06/02/2026 06/02/2025 Pneumococcal Vaccine: 50+ Years (1 of 1 - PCV) 06/02/2026 Postponed from 12/2017 (Patient Refused) SDOH Screening 06/02/2026 06/02/2025 Tobacco Screening 06/02/2026 06/02/2025 Zoster Vaccines (1 of 2) 06/02/2026 Pos tponed from 10/09/2017 (Patient Refused) RSV Patients and Patients Aged 60 years or older (1 - [...] on patient's age to complete this topic Procedures Procedure Name Priority Date/Time Associated Diagnosis Comments POCT JAZLYN-14 URINE DRUG SCREEN Routine 05/15/2025 3:13 PM EDT Lumbar radiculopathy from Last 3 Months Results * (ABNORMAL) POCT JAZLYN-14 Urine Drug Screen (05/15/2025 3:13 PM EDT) THC Negative Negative Cocaine Screen, Urine Negative Negative Opiate Screen, Urine Negative Negative Methamphetamine Screen Urine Negative Negative Amphetamine Screen, Urine Negative Negative Benzodiazepines Screen, Urine Negative Negative Barbiturate Screen, Urine Negative Negative Methadone Screen, Urine Negative Negative Buprenophine Screen, Urine Negative Negative TCA, Urine Negative Negative MDMA Urine Negative Negative ng/mL Oxycodone Screen, Urine Positive(A) Negative Comment:Rx Phencyclidine (PCP), Urine Negative Negative Propoxyphene, Urine Negative Negative Fentanyl, Urine Negative Negative Urine Urine specimen obtained by clean catch procedure / Unknown 05/15/2025 3:13 PM EDT Narrative Mirta Valeiro RN - 05/15/2025 3:13 PM EDT . Internal Pass Control Lot# [id number] Exp: 06-06-26 Missy Mcwilliams MD POINT OF CARE TEST ENTER/EDIT ORDERABLES Final Result from Last 3 Months Insurance STANDARD Care Teams Acid Remover Relationship Specialty Start Date End Date Missy Mcwilliams MD [address] [place] [phone] PCP - General Family Medicine 03/31/25
--- OUTSIDE RECORDS SUMMARY | 2025-06-03 10:23 | XMS_ITS | Encounter Summary ---
Author Organization [employer] Address [address] [place] [address] [place] [address] Care Team Providers Care Rn Orthopedic Name Role Phone Missy Mcwilliams MD Primary Care Provider [phone] Reason for Visit * Reason Onset Date Comments Med Refill 05/09/2025 Encounter Details Date Type Department Care Team (Late st Contact Info) Description 05/09/2025 Refill [facility] MED & PEDS [address] [place] [address] Missy Mcwilliams MD [address] [place] [address] Lumbar radiculopathy (Primary Dx) Social History Tobacco Use Types Packs/Day Years [...] encounter Miscellaneous Notes * Telephone Encounter - Mirta Valerio RN - 05/09/2025 1:09 PM EDT TC to pt, initial IMMIGRATION INSPECTOR appointment scheduled for 05/15/25 @3pm. * Telephone Encounter - Nuris Peña - 05/09/2025 12:55 PM EDT TC from pt requesting medication refill. Medications needing refill : oxyCODONE (Roxicodone) 5 MG immediate release tablet To be sent to: [facility]/pharmacy #[id number] - [facility] [address] [facility] documented in this encounter Plan of Treatment Upcoming Encounters Date Type Department Care Team (Late st Contact Info) Description 06/19/2025 1:00 PM EST Clinical Support [facility] MED & PEDS [address] [place] [address] Mirta Valerio, ENZO [address] [place] [address] 06/19/2025 2:30 PM EST Clinical Support [facility] MED & PEDS [address] [place] [address] 07/22/2025 10:15 AM EST Office Visit [facility] MEDICINE [address] [place] [address] Name, MD Nestor [address] [place] [address] documented as of this encounter Visit Diagnoses Diagnosis Lumbar radiculopathy- Primary Thoracic or lumbosacral neuritis or radiculitis, unspecified documented in this encounter Care Teams Rn Orthopedic Relationship Specialty Start Date End Date Missy Mcwilliams MD [address] [place] [address] PCP - General Family Medicine 03/31/25 documented as of this encounter
--- OUTSIDE RECORDS SUMMARY | 2025-06-03 10:23 | XMS_ITS | Encounter Summary ---
Author Organization [employer] Address [address] [place] [address] 7 [place] [address] Care Team Providers Care Drug Safety Physician Name Role Phone Missy Mcwilliams MD Primary Care Provider [phone] Encounter Details Date Type Department Care Team ([facility] Contact Info) Description 05/09/[address] [facility] MED & PEDS [address] [place] [address] Luiza Resendiz MD [address] [place] [address] Social History Tobacco Use Types Packs/Day Years [...] PM EDT documented as of this encounter Plan of Treatment Upcoming Encounters Date Type Department Care Team ([facility] Contact Info) Description 06/19/2025 1:00 PM EST Clinical Support [facility] MED & PEDS [address] [place] [address] Mirta Valerio RN [address] [place] [address] 06/19/2025 2:30 PM EST Clinical Support [facility] MED & PEDS [address] [place] [address] 07/22/2025 10:15 AM EST Office Visit [facility] MEDICINE [address] [place] [address] Name, MD Nestor [address] [place] [address] documented as of this encounter Visit Diagnoses Not on filedocumented in this encounter Care Teams Drug Safety Physician Relationship Specialty Start Date End Date Missy Mcwilliams MD [address] [place] [address] PCP - General Family Medicine 03/31/25 documented as of this encounter
--- OUTSIDE RECORDS SUMMARY | 2025-06-03 10:23 | XMS_ITS | Encounter Summary ---
Author Organization [employer] Address [address] [facility] 7t [place] [address] Care Team Providers Care Director Data Name Role Phone Missy Mcwilliams MD Primary Care Provider [phone] Encounter Details Date Type Department Care Team (Latest Contact Info) Description 06/02/2025 Travel Social History Tobacco Use Types Packs/Day Years [...] with others, in a hotel, in a assisted, living outside on the street, on a [...] PM EDT documented as of this encounter Functional Status * Over the [...] 11:19 AM EDT Chano Frazier [place] * Thoughts that you would be better off or hurting yourself in some way Answer Date of Assessment Author More than half the days 06/02/2025 11:19 AM EDT Chano Frazier [place] * Patient Health Questionnaire-9 Score Answer Date of Assessment Author 22 06/02/2025 11:19 AM EDT Chano Frazier [place] * How difficult have these problems made it for you to do your work, take care of things at home, or get along with other people? Answer Date of Assessment Author Very difficult 06/02/2025 11:19 AM EDT Chano Frazier [place] documented as of this encounter Plan of Treatment Upcoming Encounters Date Type Department Care Team (Late st Contact Info) Description 06/19/2025 1:00 PM EST Clinical Support [facility] MED & PEDS [address] [place] [address] Mirta Valerio RN [address] [place] [address] 06/19/2025 2:30 PM EST Clinical Support [facility] MED & PEDS [address] [place] [address] 07/22/2025 10:15 AM EST Office [facility] MEDICINE [address] [place] [address] Name, MD Nestor [address] [place] [address] documented as of this encounter Visit Diagnoses Not on filedocumented in this encounter Additional Health Concerns Assessment Noted Time PHQ-9 Depression Total Score: 025 11:19 AM EDT documented as of this encounter Care Teams Director Data Relationship Specialty Start Date End Date Missy Mcwilliams MD [address] [place] [address] PCP - General Family Medicine 03/31/25 documented as of this encounter
--- OUTSIDE RECORDS SUMMARY | 2025-06-03 10:24 | XMS_ITS | Encounter Summary ---
Author Organization [employer] Address [address] [place] [address] [place] [address] Care Team Providers Care Medical Librarian Name Role Phone Missy Mcwilliams MD Primary Care Provider [phone] Reason for Visit * Reason Onset Date Comments New Patient Request 01/31/2025 Encounter Details Date Type Department Care Team (Late st Contact Info) Description 01/31/2025 Telephone [facility] MEDICINE [address] [place], [place] [phone] Navarro Ariza MD [address] [place], [place] [phone] New Patient Request Social History Tobacco Use [...] EDT Outgoing call to pt to book HOSPICE MANAGER appt with [facility] office. No answer. Left message. * Telephone Encounter - Corrie Alejandra - 01/31/2025 11:14 AM EDT TC from caller requesting NEW PATIENT visit . DX : N/A Medical Concern: Back Pain (Fall) Insurance name : [employer] Location : Sooner available Demographic information updated documented in this encounter Plan of Treatment Upcoming Encounters Date Type Department Care Team ([facility] st Contact Info) Description 06/19/2025 1:00 PM EST Clinical Support [facility] MED & PEDS [address] [place] [address] Mirta Valerio RN [address] [place] [address] 06/19/2025 2:30 PM EST Clinical Support [facility] MED & PEDS [address] [place] [address] 07/22/2025 10:15 AM EST Office Visit [facility] MEDICINE [address] [place] [address] Name, MD Nestor [address] [place] [address] documented as of this encounter Visit Diagnoses Not on filedocumented in this encounter Care Teams Medical Librarian Relationship Specialty Start Date End Date Missy Mcwilliams MD [address] [place] [address] PCP - General Family Medicine 03/31/25 documented as of this encounter
--- OUTSIDE RECORDS SUMMARY | 2025-06-03 10:24 | XMS_ITS | Patient Health Record ---
Author Organization [facility] Address [address] [place] [address] Care Team Providers Care Taker Away Name Role Phone BEBETO VILLEGAS Primary Care Provider CHANTAL DALLAS Unavailable [phone] HIRAM BUCK Unavailable [phone] ALIE SCHULTE Unavailable [phone] GRACE HERRERA Unavailable [phone] RANDY, NATHANIEL Unavailable Unavailable IRENE GUALLPA Unavailable [phone] YOLANDACALE Unavailable [phone] DANNY HEREDIA Unavailable [phone] JANET SHIPMAN Unavailable [phone] CEASAR LOCO Unavailable [phone] ERIN CONLEY Unavailable [phone] RODOLFO MEZA Unavailable [phone] BHARAT DAO Unavailable [phone] FRANCESCA JOHNSON Unavailable [phone] MAMMPeyman JOSE Unavailable [phone] MARY TRAORE Unavailable [phone] SERANTHONY SYLVESTER Unavailable [phone] JACEK HEATON Unavailable [phone] CAROLANN DALLAS Unavailable [phone] DICKSON PATTON Unavailable [phone] Allergies No Known Allergies Results Component Value Reference Range Flag Notes X-ray Lumbar Spine 3V (A/P, Lat, Spot)* Reviewed date:08/09/2024 12:26:59 PM Interpretation: Performing Lab: Notes/Report: CLINICAL INFORMATION: Trauma TECHNIQUE: X-Ray Lumbar Spine, 3 View(s) COMPARISON: 01/15/2024 FINDINGS: Alignment: There is mild dextrocurvature of the upper lumbar spine. Bones: No lytic or blastic bone lesions. No fractures. Disc Levels: Multilevel degenerative disc disease is present unchanged from the previous study. Soft Tissues: Unremarkable. Additional Comments: None. IMPRESSION: Degenerative changes stable from previous study X-ray Elbow 2V, left* Reviewed date:08/09/2024 12:26:59 PM Interpretation: Performing Lab: Notes/Report: Clinical information: Trauma Technique: Two views of the left elbow Comparison: None Findings: Bones: No fracture is seen. There are no lytic or blastic lesions. Joints: Joint space is normal. No dislocation is seen. There is no joint effusion. Soft tissues: Unremarkable Impression: Normal exam NOW COVID-19* Reviewed date:10/21/2024 12:19:35 PM Interpretation: Performing Lab: Notes/Report: jr ID NOW COVID-19 Negative Negative amplification technology intended for the qualitative detection of nucleic acid from SARS-CoV-2 Act, 21 U.S.C SS 360bb-3(b)(1) unless the authorization is terminated or revoked. Negative results don't rule our SARS-C0V-2 infection, particularly in those who have been in contact with the virus. of in vitro diagnostic tests for detection and/or diagnosis of COVIC-19 under Section 564(b)(1) of viral RNA in direct nasal, nasopharyngeal, or throat swab from individuals who are suspected of Note: The ID NOW COVID-19 assay performed on the ID NOW instrument from [employer]. The ID NOW COVID- duration of the declaration that circumstances exist justifying the authorization of emergency use 19 has not been FDA cleared or approved; it has been authorized by the FDA under a EUA for use by COVID-19 by their healthier care provider. TheThe ID NOW COVID-19 is only authorized for the authorized laboratories. This test has been authorized for the use of isothermal nucleic acid Specimen Type Nasal Swab ID NOW RSV 6350 Reviewed date:10/21/2024 12:19:35 PM Interpretation: Performing Lab: Notes/Report: jr X-ray Hand 2V, left* Reviewed date:07/05/2024 12:32:52 PM Interpretation: Performing Lab: Notes/Report: CLINICAL INFORMATION: Left hand pain. TECHNIQUE: X-Ray Hand, two views left hand. COMPARISON: None. FINDINGS: Bones: No acute or suspicious osseous abnormalities. Joints: Unremarkable. Soft tissues: 2 adjacent linear densities measuring 6 mm and 2 mm respectively within the hypothenar soft tissues. Additional Comments: None. IMPRESSION: Hypothenar like like foreign bodies. Otherwise, unremarkable. NOW Strep A 2 6351 Reviewed date:08/19/2024 06:40:02 PM Interpretation: Performing Lab: Notes/Report: PCR Respiratory Panel*58 Reviewed date:08/20/2024 03:35:15 PM Interpretation: Performing Lab: Notes/Report: Virokey Influenza A PCR* Negative Negativ e\.br\(Ref er to value/result column\.br\for results) Note: Preferable reference range is Negative, reference range does not indicate your result. Please Note: The Vitrue Influenza A RT PCR assay is assesed using the Vitrue SX Virus Nucleic Acid Kit isintended for the qualitative detection of RNA from Influenza A/B in nasopharyngeal and authorized by the FDA under an EUA for use by authorized high complexity laboratories. This test provider. Diagnostics. The Vitrue Influenza A RT PCR has not been FDA cleared or approved; it has been oropharygeal swabs from individuals who are suspected of Influenza A by their healther care see the Value/Result column for your actual result. on the [employer] SX1CPA Exchange, as well as RT-PCR run on the [employer] SA201 insturment from [employer] Respiratory Syncytial Virus (RSV)* Negative Negative\.br\(Ref er to value/result column\.br\for results) [employer] Influenza A/B RT PCR has not been FDA cleared or approved; it has been authorized by the [employer], as well as RT-PCR run on the [place] SA201 insturment from [employer] Diagnostics. The who are suspected of RSV by their healther care provider. Note: The Vitrue RSV RT PCR assay is assesed using the Vitrue SX Virus Nucleic Acid Kit on the see the Value/Result column for your actual result. FDA under an EUA for use by authorized high complexity laboratories. This test isintended for the Note: Preferable reference range is Negative, reference range does not indicate your result. Please qualitative detection of RNA from RSV in nasopharyngeal and oropharygeal swabs from individuals [employer]key Influenza B PCR* Negative authorized by the FDA under an EUA for use by authorized high complexity laboratories. This test see the Value/Result column for your actual result. Note: Preferable reference range is Negative, reference range does not indicate your result. Please isintended for the qualitative detection of RNA from Influenza A/B in nasopharyngeal and Diagnostics. The Vitrue Influenza A RT PCR has not been FDA cleared or approved; it has been on the [employer] SX101, as well as RT-PCR run on the [place] SA201 insturment from [facility] provider. oropharygeal swabs from individuals who are suspected of Influenza B by their healther care Note: The Vitrue Influenza B RT PCR assay is assesed using the Vitrue SX Virus Nucleic Acid Kit [employer] SARS-CoV-2 RT PCR Positive Negati ve\.br\(Ref er to value/result column\.br\for results) CT Values POS justifying the authorization of emergency use of in vitro diagnostic tests for detection and/or Note: The Vitrue SARS-CoV-2 RT PCR assay is assesed using the Vitrue SX Virus Nucleic Acid Kit SARS-CoV-2 RT PCR is only authorized for the duration of the declaration that circumstances exists on the [employer] SX101, as well as RT-PCR run on the [employer] SA201 insturment from [employer] swabs from individuals who are suspected of COVID-19 by their healther care provider. The Vitrue isintended for the qualitative detection of RNA from SARS-CoV-2 in nasopharyngeal and oropharygeal see the Value/Result column for your actual result. Note: Preferable reference range is Negative, reference range does not indicate your result. Please Diagnostics. The [employer] SARS-CoV-2 RT PCR has not been FDA cleared or approved; it has been authorization is terminated or revoked. diagnosis of COVIC-19 under Section 564(b)(1) of Act, 21 U.S.C SS 360bb-3(b)(1), unless the authorized by the FDA under an EUA for use by authorized high complexity laboratories. This test Upper Respiratory Culture (T hroat Culture) [facility] [id number] Reviewed date:08/23/2024 07:20:44 PM Interpretation: Performing Lab: Notes/Report: Source? : Location Specimen Obtained from Patient THROAT Upper Respiratory Culture Final report Result 1 Comment Routine respir atory jordan Influenza A/B & COVID 19 Ag* 54 Reviewed date:08/19/2024 06:40:02 PM Interpretation: Performing Lab: Notes/Report: X-ray Foot 3V, bilateral* Reviewed date:09/13/2024 04:51:01 PM Interpretation: Performing Lab: Notes/Report: CLINICAL INFORMATION: Bilateral foot pain. TECHNIQUE: X-Ray Foot, 6 View(s), bilateral COMPARISON: None. FINDINGS: Bones: Old, healed fracture of the distal left 5th metatarsal. Bifid medial left hallucal sesamoid. No acute fracture. No suspicious lesion. Joints: Mild degenerative changes of the ankles, greater on the right. No effusion. Soft tissues: Unremarkable. Additional Comments: None. IMPRESSION: Mild degenerative change at both ankles, greater on the right. Urinalysis by dipstick W/O m icroscopy* [id number] Reviewed date:09/13/2024 03:01:46 PM Interpretation: Performing Lab: Notes/Report: Clarity clear Color yellow Blood - Negative - Urobilinogen 0.2 Negative - Bilirubin - Negative - Protein 15 Negative - Nitrite - Negative - Ketones - Negative - Ascorbic Acid - Glucose - Negative - pH 5.0 Leukocytes - Negative - Specific [place] 1.015 X-ray Ribs 3V, right* Reviewed date:09/13/2024 03:51:32 PM Interpretation: Performing Lab: Notes/Report: CLINICAL INFORMATION: Status post fall at work, blunt right chest trauma, right chest pain TECHNIQUE: X-Ray Ribs, Four View(s), right COMPARISON: None. FINDINGS: Bones: No acute or suspicious osseous abnormalities. Soft tissues: Unremarkable. Visualized Lung Lieberman: Clear. No pneumothorax. Additional Comments: None. IMPRESSION: Negative study. X-ray Lumbar Spine 3V (A/P, Lat, Spot)* Reviewed date:09/13/2024 03:51:32 PM Interpretation: Performing Lab: Notes/Report: CLINICAL INFORMATION: Back pain after injury. TECHNIQUE: X-Ray Lumbar Spine, 3 View(s) COMPARISON: 08/02/2024. FINDINGS: Alignment: [id number] convex right thoracolumbar scoliosis. Stable mild grade 1 anterolisthesis of L4 on L3. Bones: Mild anterior compression deformity of L1, stable. Moderate to severe multilevel endplate degenerative changes, most notably at L2-3 with prominent endplate osteophytes, most notably of the right lateral aspect. Disc Levels: Moderate to severe multilevel degenerative disc disease, worst at L1-2 and L2-3. Soft Tissues: Unremarkable. Additional Comments: None. IMPRESSION: Grossly stable study, as detailed above. No definite acute abnormality. If concern persists, an MRI should be considered. i-STAT Metabolic Panel *(301 4) w/ Ionized Calcium Reviewed date:09/13/2024 03:51:32 PM Interpretation: Performing Lab: Notes/Report: CBC W/DIFF with Refx to Reti c (new) IN HOUSE *2115* Reviewed date:09/13/2024 03:51:32 PM Interpretation: Performing Lab: Notes/Report: CT Abdomen/Pelvis w* Reviewed date:09/13/2024 04:51:01 PM Interpretation: Performing Lab: Notes/Report: CLINICAL INFORMATION: Status post fall at work [...] process of L1. No associated intra-abdominal injury. X-ray Hip 2V, right* Reviewed date:09/24/2024 03:00:01 PM Interpretation: Performing Lab: Notes/Report: X-ray Right Hip, 2 views, AP and Lateral Right hip: Mild degenerative changes s in the hip joint. Right equals left. No fractures seen. There is a small area of opacity in the proximal femur region consistent with an enchondroma as per report and images from the CAT scan taken on 09/13/2024. Abdomen/Pelvis w* Reviewed date:10/03/2024 11:59:06 AM Interpretation: Performing Lab: Notes/Report: CLINICAL INFORMATION: Abdominal pain TECHNIQUE: CT Abdomen and Pelvis with IV administration of 95 cc Isoview 370. Protocol: Routine. Images were acquired utilizing dose reduction technique. COMPARISON: 09/13/2024 FINDINGS: Lower Chest: Unremarkable. Liver: Unremarkable. No focal lesions. Gallbladder/Biliary: Unremarkable. No biliary dilation. Spleen: Unremarkable. Pancreas: Unremarkable. No masses or ductal dilation. Adrenals: Unremarkable. Kidneys: Unremarkable. No hydronephrosis. Retroperitoneum: No aortic aneurysm. No adenopathy. Gastrointestinal: Unremarkable. No obstruction. Urinary Bladder: Unremarkable. Reproductive: Unremarkable. Bones: Again noted are fractures of the right 11th and 12th ribs Additional Comments: None. IMPRESSION: Fracture is again noted of the lower right ribs as well as the the transverse process of L1. There has been no interval change Chest w* Reviewed date:10/03/2024 11:59:06 AM Interpretation: Performing Lab: Notes/Report: CLINICAL INFORMATION: Generalized chest and abdominal pain TECHNIQUE: CT Chest with. IV Contrast: 95 cc Isoview 370. Protocol: Routine. Images were acquired utilizing dose reduction technique. COMPARISON: None. FINDINGS: Lymph Nodes: No adenopathy. Lungs/Pleura: The central tracheobronchial tree is grossly patent. No suspicious mass or consolidation. No suspicious pulmonary nodule. Mild bibasilar dependent changes. Minimal subpleural scarring adjacent to the major fissure of the right upper lung, image 28. No pleural effusion. Cardiovascular: Heart size within normal limits. No aortic aneurysm. No definitive coronary artery calcification. Chest Wall/Bones: Acute or subacute fractures of the posterior 11th and 12th ribs on the right. Degenerative changes in the spine. Visualized Upper Abdomen: Please refer to separately dictated CT abdomen and pelvis report from the same day for details of findings below the diaphragm. Additional Comments: None. IMPRESSION: Acute or subacute fractures of the right posterior 11th and 12th ribs, correlate with any recent trauma. No lymphadenopathy or pleural effusion. No suspicious pulmonary mass or consolidation. Influenza Swab* [id number] x2 Padmini t code 6335 Reviewed date:10/21/2024 12:19:35 PM Interpretation: Performing Lab: Notes/Report: jr INFLUENZA A Negative Internal QC Passed Negative Negative Internal QC Passed INFLUENZA B Negative Internal QC Passed Negative Negative Internal QC Passed PCR Respiratory Panel*58 Reviewed date:10/21/2024 12:19:35 PM Interpretation: Performing Lab: Notes/Report: V[employer]key Influenza A PCR* Negative Negativ e\.br\(Ref er to value/result column\.br\for results) on the [place] SX101, as well as RT-PCR run on the [place] SA201 insturment from [employer]. The V[employer]Key Influenza A RT PCR has not been FDA cleared or approved; it has been see the Value/Result column for your actual result. isintended for the qualitative detection of RNA from Influenza A/B in nasopharyngeal and authorized by the FDA under an EUA for use by authorized high complexity laboratories. This test Note: The Vitrue Influenza A RT PCR assay is assesed using the Vitrue SX Virus Nucleic Acid Kit Note: Preferable reference range is Negative, reference range does not indicate your result. Please provider. oropharygeal swabs from individuals who are suspected of Influenza A by their healther care [employer] Respiratory Syncytial Virus (RSV)* Negative Negative\.br\(Ref er to value/result column\.br\for results) FDA under an EUA for use by authorized high complexity laboratories. This test isintended for the who are suspected of RSV by their healther care provider. [employer]Key Influenza A/B RT PCR has not been FDA cleared or approved; it has been authorized by the see the Value/Result column for your actual result. qualitative detection of RNA from RSV in nasopharyngeal and [facility]al swabs from individuals [facility], as well as RT-PCR run on the [place] SA201 insturment from [employer] Diagnostics. The Note: The Vitrue RSV RT PCR assay is assesed using the Vitrue SX Virus Nucleic Acid Kit on the Note: Preferable reference range is Negative, reference range does not indicate your result. Please Virokey Influenza B PCR* Negative Negative on the [place] SX101, as well as RT-PCR run on the [place] SA201 insturment from [employer] see the Value/Result column for your actual result. Note: The [employer] Influenza B RT PCR assay is assesed using the Vitrue SX Virus Nucleic Acid Kit oropharygeal swabs from individuals who are suspected of Influenza B by their healther care authorized by the FDA under an EUA for use by authorized high complexity laboratories. This test Diagnostics. The [employer]Key Influenza A RT PCR has not been FDA cleared or approved; it has been Note: Preferable reference range is Negative, reference range does not indicate your result. Please provider. isintended for the qualitative detection of RNA from Influenza A/B in nasopharyngeal and [employer] SARS-CoV-2 RT PCR Negative Negati ve\.br\(Ref er to value/result column\.br\for results) isintended for the qualitative detection of RNA from SARS-CoV-2 in nasopharyngeal and oropharygeal Note: Preferable reference range is Negative, reference range does not indicate your result. Please SARS-CoV-2 RT PCR is only authorized for the duration of the declaration that circumstances exists authorized by the FDA under an EUA for use by authorized high complexity laboratories. This test Note: The Vitrue SARS-CoV-2 RT PCR assay is assesed using the Vitrue SX Virus Nucleic Acid Kit swabs from individuals who are suspected of COVID-19 by their healther care provider. The Vitrue diagnosis of COVIC-19 under Section 564(b)(1) of Act, 21 U.S.C SS 360bb-3(b)(1), unless the justifying the authorization of emergency use of in vitro diagnostic tests for detection and/or on the [place] SX101, as well as RT-PCR run on the [place] SA201 insturment from [employer] authorization is terminated or revoked. Diagnostics. The [employer] SARS-CoV-2 RT PCR has not been FDA cleared or approved; it has been see the Value/Result column for your actual result. US Reflux Venous BLE* Reviewed date:10/20/2024 07:49:55 PM Interpretation: Performing Lab: Notes/Report: CLINICAL: 59-year-old male with bilateral leg swelling and suspected DVT. Evaluate for venous insufficiency. TECHNIQUE: Real-time sonography of the deep veins of the bilateral lower extremities was performed from the groins to the tibial peroneal trunks, utilizing grayscale, color flow and Doppler interrogation. Examination of the common femoral, femoral, proximal deep femoral, greater and lesser saphenous and popliteal veins was performed. FINDINGS: Examination somewhat difficult technically as the patient had some difficulty following instructions for Valsalva maneuver. The deep veins of the bilateral lower extremities from the groins to the tibial peroneal trunks are normally compressible throughout, demonstrating normal color flow, respiratory phasicity and response to augmentation inducement. There is no evidence of DVT in the deep veins of the bilateral lower extremities. There is no evidence of Andersen's cyst. Bilateral greater and lesser saphenous veins are normally patent and normally competent throughout their course demonstrating no significant valvular insufficiency. IMPRESSION: No evidence of DVT in the deep veins of the bilateral lower extremities. No evidence of significant valvular insufficiency in the distribution of the greater or lesser saphenous veins bilaterally Bilateral LE Arterial Dop pler/Duplex* Reviewed date:10/20/2024 07:49:46 PM Interpretation: Performing Lab: Notes/Report: CLINICAL: Lower extremity swelling, concern for peripheral vascular disease and atherosclerotic occlusive disease COMPARISON: None. TECHNIQUE: Real-time sonography of the arterial tree of the lower extremities was performed bilaterally, utilizing grayscale, color flow and Doppler interrogation. Examination was performed from the level of the external iliac arteries to the ankles and feet. FINDINGS: Grayscale images reveal . Bilateral external iliac, common, superficial and profunda femoral, as well as above and below the knee popliteal arteries are widely patent bilaterally on color images. There are triphasic waveforms present from the common femoral arteries to the below the knee popliteal artery segments bilaterally, with no evidence of a focal velocity shift to suggest a significant focal underlying stenosis. Below the knees, 3-vessel runoff is seen bilaterally. There are triphasic waveforms throughout the tibial and peroneal vessels down to the ankles and feet except for the dorsalis pedis arteries where there is a biphasic waveform on the right and monophasic waveform on the left compatible with mild very distal disease in the dorsalis pedis arteries. Again, there is no evidence a focal velocity shift to suggest a significant focal stenosis. IMPRESSION: Widely patent femoral popliteal segments bilaterally. Three-vessel continuous runoff with Doppler signal abnormality of the dorsalis pedis artery bilaterally as described suggesting distal infrapopliteal disease bilaterally. Thoracic Spine w/o* Reviewed date:11/01/2024 10:08:47 PM Interpretation: Performing Lab: Notes/Report: CLINICAL INFORMATION: Chronic mid back pain, atraumatic. Subsequent evaluation. TECHNIQUE: MRI Thoracic Spine without IV contrast. Protocol: Routine. COMPARISON: MRI Thoracic Spine 09/29/2021. FINDINGS: Alignment: Mild dextroscoliosis. Normal kyphosis. No listhesis. Vertebrae: Grossly stable in height. Probable T4 hemangioma, grossly stable. Bone Marrow: Overall benign. Multilevel type I endplate changes, greatest at T12-L1. Soft Tissues: No discrete mass. No significant edema. Spinal Cord: Mild multilevel flattening. No compression or abnormal signal. Disc Levels: Grossly stable in height. Very small central and/or paracentral herniations at T3-4 through T12-L1 are overall grossly stable. Degenerative changes also grossly stable, includes narrowing, loss of intradiscal T2 signal, spondylotic ridging and/or facet arthropathy There is associated mild mass effect on the anterior thecal sac without significant canal stenosis. Foraminal stenosis re-identified at several levels, appears very mild to mild on the left at T1-2, mild bilaterally at T9-10, mild bilaterally at T10-11 and very mild on the left at T12-L1. Additional Comments: None. IMPRESSION: No acute findings. No significant change since the MRI on 09/29/2021. Degenerative changes and/or disc herniations at T1-2 through T12-L1. No significant central canal stenosis. No cord compression is identified. Very mild to mild foraminal stenosis at T1-2, T9-10, T10-11 and T12-L1. Lumbar Spine w/o* Reviewed date:11/01/2024 10:08:41 PM Interpretation: Performing Lab: Notes/Report: CLINICAL INFORMATION: Chronic low back pain with radiculopathy. Subsequent evaluation. TECHNIQUE: MRI Lumbar Spine without IV contrast. Protocol: Routine. COMPARISON: MRI Lumbar Spine 11/15/2020. FINDINGS: Alignment: Dextroscoliosis / multilevel listhesis, grossly stable (see individual levels). Vertebrae: Grossly stable in height. No compression fractures. Bone Marrow: Multilevel type I endplate changes. Otherwise benign. Soft Tissues: Posterior T2/fluid signal, nonspecific likely dependent related. Spinal Cord: Normal. No compression. Conus ends at L2. Disc Levels: Multilevel degeneration. Multilevel narrowing, progressive narrowing since 2020. T12-L1: Left paracentral /foraminal disc herniation, partly extruded with cephalad migration, spondylotic ridging and facet arthropathy. There is associated mild left foraminal stenosis. L1-2: Disc bulge/spondylotic ridging, eccentric to the left, ligamentum flavum hypertrophy and facet arthropathy. There is associated mild left foraminal stenosis. There may be impingement of the left L1 nerve root as it exits the neural foramen by a left-sided extraforaminal osteophyte. L2-3: Grade I retrolisthesis, disc bulge/spondylotic ridging, ligamentum flavum hypertrophy and facet arthropathy. There is associated [id number] left and mild right foraminal stenosis. There may be impingement of either of the L2 nerve roots after they have exited the neural foramina due to prominent extraforaminal osteophytes. L3-4: Broad-based right foraminal disc herniation, disc bulge/spondylotic ridging, eccentric to the right, ligamentum flavum hypertrophy and facet arthropathy. There is associated moderate central canal, mild left foraminal and severe right foraminal stenosis with impingement of the centrally located cauda equina nerve roots in the exiting right L3 nerve root. L4-5: Disc bulge/spondylotic ridging, ligamentum flavum hypertrophy and facet arthropathy. There is associated mild left and moderate right foraminal stenosis. There may be impingement of the right L4 nerve root as it exits the neural foramen. L5-S1: Grade I anterolisthesis, disc bulge/spondylotic ridging, eccentric to the left, and facet arthropathy. There is associated very mild right and severe left foraminal stenosis with impingement of the exiting left L5 nerve root. Additional Comments: None. IMPRESSION: Disc herniation at T12-L1, new since 2020. Other findings overall similar to the previous MRI. Stenosis is oopxxeyn-ef-salvwl at L3-4 and L5-S1, only riqg-yc-mozhtsar at the other levels. Nerve root impingement at L3-4, L5-S1. There could be impingement at L1-2, L2-3 and L4-5. CorDx Flu A/B & COVID-19* Reviewed date:12/02/2024 04:13:40 PM Interpretation: Performing Lab: Notes/Report: PCR Respiratory Panel*58 Reviewed date:12/15/2024 09:20:43 AM Interpretation: Performing Lab: Notes/Report: [facility] Influenza A PCR* Negative Negativ e\.br\(Ref er to value/result column\.br\for results) isintended for the qualitative detection of RNA from Influenza A/B in nasopharyngeal and Note: The [employer] Influenza A RT PCR assay is assesed using the Vitrue SX Virus Nucleic Acid Kit oropharygeal swabs from individuals who are suspected of Influenza A by their healther care [facility], as well as RT-PCR run on the [facility] SA201 insturment from [facility] see the Value/Result column for your actual result. Diagnostics. The ViroKey Influenza A RT PCR has not been FDA cleared or approved; it has been Note: Preferable reference range is Negative, reference range does not indicate your result. Please authorized by the FDA under an EUA for use by authorized high complexity laboratories. This test provider. [employer] Respiratory Syncytial Virus (RSV)* Negative Negative\.br\(Ref er to value/result column\.br\for results) [facility], as well as RT-PCR run on the [place] SA201 insturment from [facility] Diagnostics. The Note: Preferable reference range is Negative, reference range does not indicate your result. Please qualitative detection of RNA from RSV in nasopharyngeal and oropharygeal swabs from individuals who are suspected of RSV by their healther care provider. [employer] Influenza A/B RT PCR has not been FDA cleared or approved; it has been authorized by the Note: The Vitrue RSV RT PCR assay is assesed using the Vitrue SX Virus Nucleic Acid Kit on the FDA under an EUA for use by authorized Interwise complexity laboratories. This test isintended for the see the Value/Result column for your actual result. [facility] Influenza B PCR* Negative Negative Diagnostics. The [employer] Influenza A RT PCR has not been FDA cleared or approved; it has been provider. Note: Preferable reference range is Negative, reference range does not indicate your result. Please oropharygeal swabs from individuals who are suspected of Influenza B by their healther care Note: The [employer] Influenza B RT PCR assay is assesed using the Vitrue SX Virus Nucleic Acid Kit authorized by the FDA under an EUA for use by authorized high complexity laboratories. This test isintended for the qualitative detection of RNA from Influenza A/B in nasopharyngeal and on the [place] SX101, as well as RT-PCR run on the [place] SA201 insturment from [facility] see the Value/Result column for your actual result. [facility] SARS-CoV-2 RT PCR Negative Negati ve\.br\(Ref er to value/result column\.br\for results) swabs from individuals who are suspected of COVID-19 by their healther care provider. The [facility] on the [place] SX101, as well as RT-PCR run on the [place] SA201 insturment from [facility] diagnosis of COVIC-19 under Section 564(b)(1) of Act, 21 U.S.C SS 360bb-3(b)(1), unless the Diagnostics. The [employer]Key SARS-CoV-2 RT PCR has not been FDA cleared or approved; it has been see the Value/Result column for your actual result. authorized by the FDA under an EUA for use by authorized high complexity laboratories. This test SARS-CoV-2 RT PCR is only authorized for the duration of the declaration that circumstances exists authorization is terminated or revoked. isintended for the qualitative detection of RNA from SARS-CoV-2 in nasopharyngeal and oropharygeal Note: The [employer] SARS-CoV-2 RT PCR assay is assesed using the Vitrue SX Virus Nucleic Acid Kit Note: Preferable reference range is Negative, reference range does not indicate your result. Please justifying the authorization of emergency use of in vitro diagnostic tests for detection and/or i-STAT Metabolic Panel *(301 4) w/ Ionized Calcium Reviewed date:12/02/2024 04:45:40 PM Interpretation: Performing Lab: Notes/Report: CBC W/DIFF with Refx to Reti c (new) IN HOUSE *2115* Reviewed date:12/02/2024 04:45:29 PM Interpretation: Performing Lab: Notes/Report: X-ray Chest 2V (PA/Lateral)* Reviewed date:12/02/2024 07:52:30 PM Interpretation: Performing Lab: Notes/Report: CLINICAL INFORMATION: Cough TECHNIQUE: PA and lateral views of the chest COMPARISON: 07/03/2015 FINDINGS: Heart/Mediastinum: Normal heart size. Unremarkable mediastinum. Lungs: No acute infiltrates. No pleural effusions. Osseous Structures: No acute osseous abnormalities. Additional Comments: None. IMPRESSION: No acute pulmonary disease Echo 2D Doppler w color f low* Reviewed date:12/12/2024 09:11:34 AM Interpretation: Performing Lab: Notes/Report: [facility]CHOCARDIOGRAPHY [facility]ORAT[facility] 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 Field AORTIC ROOT SIZE 3.2 cm AORTIC CUSP EXCURSION 2.2 cm LA SIZE 3.1 cm RIGHT VENTRICLE (D) 3.12 cm IVS THICKNESS (D) 1.51 cm IVS THICKNESS (S) 1.42 cm LVD (D) END DIASTOLIC DIAMETER 4.07 cm LVD (S) END SYSTOLIC DIAMETER 2.89 cm LVPW (D) 1.15 cm LVPW (S) 1.63 cm LV EJECTION FRACTION 56% LVOT DIAMETER 2.0 cm AI MAX VELOCITY 217 cm AI P1/2 TIME 377 ms AV VMAX 119 cm.s AV MEAN PG 3 mmHg AV MAX PG 6 mmHg AORTIC VALVE AREA 2.5 cm2 PULMONIC VALVE (PI) MITRAL P 1.2 TIME 44 ms MV AREA (MVA) 2.86 cm2 MV MAX VELOCITY (MR) 356 cm.s E ? EPRIME RATIO 5.4 cm.s TRICUSPID REGURGITANT VELOCITY 261 cm.s ESTIMATED PA PRESSURE 30 mmHg SYLVIA AP4 22.8 ml.m2 AP2 27.9 ml.m2 REJI AP4 13.4 ml.m2 RV BASE: 2.17 cm RV MID: 2.08 cm RV LENGTH: 4.97 cm TAPSE: 2.33 cm Findings: Left Ventricle: Left Ventricle cavity is normal size and thickness. Left ventricle ejection fraction is 55-60% which is normal No obvious wall motion abnormalities Normal diastolic function Right Ventricle: The Right ventricle is normal size and function. Atria: Left atrium is normal in size. Right atrium is normal in size. Interatrial septum appears intact on color doppler Valves Aortic valve: Well visualized, trileaflet and normal morphology. No evidence of hemodynamically significant stenosis or regurgitation. Mitral valve: Well visualized and normal appearing. No evidence of hemodynamically significant mitral stenosis or regurgitation. Pulmonic valve: Not well seen. No pulmonary regurgitation. Tricuspid valve: Grossly normal appearing. Trace Tricuspid regurgitation jet, insufficient jet to calculate PASP Great Vessels Aortic root is normal size for age and gender. IVC not well visualized Pericardium: No pericardial effusion Impression: Normal Left ventricle function, EF is 55-60% Normal diastolic function Normal biatrial size No significant valvular abnormalities No pericardial effusion Compared to prior study: no prior study CorDx Flu A/B & COVID-19* Reviewed date:12/23/2024 12:49:09 PM Interpretation: Performing Lab: Notes/Report: i-STAT Metabolic Panel *(301 4) w/ Ionized Calcium Reviewed date:12/23/2024 01:45:00 PM Interpretation: Performing Lab: Notes/Report: CBC W/DIFF with Refx to Reti c (new) IN HOUSE *2115* Reviewed date:12/23/2024 01:44:49 PM Interpretation: Performing Lab: Notes/Report: X-ray Chest 2V (PA/Lateral)* Reviewed date:12/23/2024 05:07:10 PM Interpretation: Performing Lab: Notes/Report: CLINICAL INFORMATION: Fever TECHNIQUE: PA and lateral views of the chest COMPARISON: 12/02/2024 FINDINGS: Heart/Mediastinum: Normal heart size. Unremarkable mediastinum. Lungs: No acute infiltrates. No pleural effusions. Osseous Structures: No acute osseous abnormalities. Additional Comments: None. IMPRESSION: No acute pulmonary disease * Reviewed date:12/31/2024 06:19:50 AM Interpretation: Performing Lab: Notes/Report: ECGDiastolicBP 0 ECGHr 68 ECGPRInterval 166 ECGPWaveAxis 35 ECGQRSDuration 90 ECGQrsWaveAxis 11 ECGQTcInterval 370 ECGQTInterval 356 ECGSystolicBP 0 ECGTWaveAxis 13 RR_DiastolicBP 0 RR_MaxRRInterval 0 RR_MeanHR 0 RR_MeanRRInterval 0 RR_MinRRInterval 0 RR_NumBeats 0 RR_NumNormalBeats 0 RR_SystolicBP 0 EKG* Reviewed date:12/31/2024 06:19:50 AM Interpretation: Performing Lab: Notes/Report: ECGDiastolicBP 0 ECGHr 68 ECGPRInterval 166 ECGPWaveAxis 35 ECGQRSDuration 90 ECGQrsWaveAxis 11 ECGQTcInterval 370 ECGQTInterval 356 ECGSystolicBP 0 ECGTWaveAxis 13 RR_DiastolicBP 0 RR_MaxRRInterval 0 RR_MeanHR 0 RR_MeanRRInterval 0 RR_MinRRInterval 0 RR_NumBeats 0 RR_NumNormalBeats 0 RR_SystolicBP 0 EKG* Reviewed date:12/31/2024 06:19:50 AM Interpretation: Performing Lab: Notes/Report: ECGDiastolicBP 0 ECGHr 68 ECGPRInterval 166 ECGPWaveAxis 35 ECGQRSDuration 90 ECGQrsWaveAxis 11 ECGQTcInterval 370 ECGQTInterval 356 ECGSystolicBP 0 ECGTWaveAxis 13 RR_DiastolicBP 0 RR_MaxRRInterval 0 RR_MeanHR 0 RR_MeanRRInterval 0 RR_MinRRInterval 0 RR_NumBeats 0 RR_NumNormalBeats 0 RR_SystolicBP 0 Reason For Referral Reason TESI @ T7/8 Diagnosis 1 Thoracic radiculopat hy (M54.14) Referred Organization [facility] Referred Provider RODOLFO MEZA Referred Address [address] [place] [address] ,[place], [place],[address], Referred Provider Specialty Pain Medicin e Procedure 1 NJX INTERLAMINAR CRV /THRC (71950) General Notes Laci Ureña 06/03 01:21:34 PM > TESI @ T7/8,Dx:M54.14,Ordering Provider:Dr. Rodolfo Meza,Ins:[facility] Ref# [id number] Aldair Riley [phone],per over call ([phone]) Spoke to aldair riley . Referral Priority Routine Diagnosis 1 Back pain (M54.9) Referral Organization [facility] Referring Provider First Name BEBETO Referring Provider Last Name NELLY Referring Provider Speciality Internal edicine Referred Provider Specialty UrgentCare [facility] Referral Priority Routine Diagnosis 1 Left hand pain (M79. 642) Referral Organization [facility] Referring Provider First Name BEBETO Referring Provider Last Name NELLY Referring Provider Speciality Internal edicine Referred Provider Specialty Orthopedics\ - Referral Priority Routine Diagnosis 1 Injury due to fall, initial encounter (W19.XXXA) Referral Organization [facility] Referring Provider First Name BEBETO Referring Provider Last Name NELLY Referring Provider [facility] edicine Referred Provider Specialty UrgentCare [facility] Referral Priority Routine Diagnosis 1 Pain in right foot ( M79.671) Diagnosis 2 Pain in left foot (M 79.672) Referral Organization [facility] Referring Provider First Name BEBETO Referring Provider Last Name NELLY Referring Provider [facility] edicine Referred Organization [facility] Referred Provider GRACE HERRERA [place] Address [address] [place],[address],[place] Referred Provider Specialty Podiatry Referral Priority Routine Diagnosis 1 Accidental fall, ini tial encounter (W19.XXXA) Referral Organization [facility] Referring Provider First Name BEBETO Referring Provider Last Name NELLY Referring Provider [facility] Referred Provider Specialty UrgentCare [facility] Referral Priority Routine Diagnosis 1 Scoliosis of thoraco lumbar spine, unspecified scoliosis type (M41.9) Referral Organization [facility] Referring Provider First Name BEBETO Referring Provider Last Name NELLY Referring Provider [facility] Referred [facility] Referred Provider JANET SHIPMAN Referred Address [address] [place],[address],[place] Referred Provider Specialty Orthopedic S urgery Referral Priority Routine Diagnosis 1 Chest pain, unspecif ied type (R07.9) Referral Organization [facility] Referring Provider First Name BEBETO Referring Provider Last Name NELLY Referring Provider [facility] Referred [facility] Referred Provider MARY TRAORE Referred Address [address] [place], [place],[address],[place] Referred Provider Specialty Cardiology Referral Priority Routine Reason CT CHEST W* Diagnosis 1 Elevated LDH (R74.02 ) Referring Provider First Name Maykel Referring Provider Last Name Ilana Referring Provider [facility] Hematology /Oncology Referred Organization [facility] Referred Provider LUÍS MELÉNDEZ Referred Address [address] [place], [place],[address],[place] Referred Provider Specialty Diagnostic R adiology Procedure 1 CT THORAX W/DYE (712 60) General Notes Marisa, Venesa 10/02 11:22:49 AM >APPROVED PER NOTES IN APPT 09/19/2024 Referral Priority Routine Reason CT ABD & PELV W* Diagnosis 1 Elevated LDH (R74.02 ) Referring Provider First Name Maykel Referring Provider Last Name Ilana Referring Provider Speciality Hematology /Oncology Referred Organization [facility] Referred Provider LUÍS MELÉNDEZ [place] [address] [place],[address], Referred Provider Specialty Diagnostic R adiology General Notes Kye Cunningham 10/02 11:35:38 AM >APPROVED PER NOTES ON APPT 09/19/24 Referral Priority Routine Reason AD REFLUX Diagnosis 1 Lower extremity mario a (R60.0) Referral Organization [facility] Referring Provider First Name MARY Referring Provider Last Name LEÓN Referring Provider Speciality Cardiology Referred Organization [facility] Referred Provider MARY TRAORE [place] Address [address] [place],[address], Referred Provider Specialty Cardiology Procedure 1 LOWER EXTREMITY STUD Y (22561) Procedure 2 EXTREMITY STUDY (938 54) General Notes Kinza Chicas 11/2024 03:32:44 PM >IVA,CALLREF#[id number] 10/08/2024 3:20PM (JOSE S) Referral Priority Routine Diagnosis 1 Lumbar spondylosis ( M47.816) Referral Organization [facility] Referring Provider First Name BEBETO Referring Provider Last Name NELLY Referring Provider Speciality Internal M edicine Referred Provider Specialty Pain Managem ent\-MD Susana Referral Priority Routine Reason MRI L SPINE W/O Diagnosis 1 Lumbar radiculopathy (M54.16) Referral Organization [facility] Referring Provider First Name RODOLFO Referring Provider Last Name SUSANA Referring Provider Speciality Pain Medic ine Referred Organization [facility] Referred Provider LUÍS MELÉNDEZ Referred Address [address] [place],[address], Referred Provider Specialty Diagnostic R adiology Procedure 1 MRI LUMBAR SPINE W/O DYE (53671) Referral Priority Routine Reason MRI T SPINE W/O Diagnosis 1 Thoracic radiculopat hy (M54.14) Referral Organization [facility] Referring Provider First Name RODOLFO Referring Provider Last Name SUSANA Referring Provider Speciality Pain Medic ine Referred Organization [facility] Referred Provider LUÍS MELÉNDEZ Referred Address [address] [place] [place],[address], Referred Provider Specialty Diagnostic R adiology Procedure 1 MRI THORACIC SPINE W /O DYE (95829) Referral Priority Routine Diagnosis 1 Lower extremity mario a (R60.0) Referral Organization [facility] Referring Provider First Name MARY Referring Provider Last Name LEÓN Referring Provider Speciality Cardiology Referred Provider Specialty Cardiovascul ar \\- Jarek Heaton MD Referral Priority Routine Reason ECHO Diagnosis 1 Lower extremity mario a (R60.0) Referral Organization [facility] Referring Provider First Name MARY Referring Provider Last Name LEÓN Referring Provider Speciality Cardiology Referred Organization [facility] Referred Provider MARY TRAORE Referred Address [address] [place],[address], Referred Provider Specialty Cardiology Procedure 1 TTE W/DOPPLER, COMPL ETE (19690) General Notes Leonidas Potter 2024 10:23:56 AM >IVA,REF#[id number] Shen Culver Referral Priority Routine Diagnosis 1 Lower extremity mario a (R60.0) Referral Organization [facility] Referring Provider First Name MARY Referring Provider Last Name LEÓN Referring Provider Speciality Cardiology Referred Provider Specialty Cardiovascul ar Disease Referral Priority Routine Medications Medication SIG (Take, Route, Frequency, Duration) Notes Start Date End Date Status Ambien 10 MG Tablet 1 tablet at bedtime as needed Orally Once a day; Duration: 30 days 05/27/2025 06/26/2025 Active Gabapentin 400 MG Capsule 1 capsule Oral ly Twice a day; Duration: 90 days Active GaviLyte-C 240 GM Solution Reconstituted milliliter Orally prescribe; Duration: 1 days 10/25/2024 Active Lisinopril 5 MG Tablet 1 tablet Orally O nce a day; Duration: 90 days 11/11/2024 Active Montelukast Sodium 10 MG Tablet TAKE 1 TABLET BY MOUTH EVERY DAY; Duration: 90 Active oxyCODONE HCl 10 MG Tablet 1 [...] Twice a day; Duration: 30 days Active Sutab 8924-752-477 MG Tablet 12 tablets the first dose [...] 07/26/2024 Active Vitamin D (Ergocalciferol) 1.25 MG (60466 UT) Capsule TAKE 1 CAPSULE BY MOUTH [...] directed; Duratio n: 30 days 09/13/2024 Active Immunizations Vaccine Route Administration Date Status Comme nts Influenza (whole), CPT 43227 Inactive Unknown 05/27/2015 Pending ([facility] [place]) Fluzone Quadrivalent (3 years+), NOT PRSV free IM Intramuscular 04/27/2016 Administered COVID-19,mRNA PFIZER DOSE 1 IM Intramuscular 07/08/2021 Administered COVID-19,mRNA PFIZER DOSE 2 IM Intramuscular 07/29/2021 Administered Social History Social History Additional Details Category Social Info Options Details Drugs/Alcohol: Do you drink alcohol? No Migrated Social History How many drinks? None Smoking Former Smoker Section Notes: denies smoking denies smoking denies smoking denies smoking denies smoking denies smoking denies smoking denies smoking denies smoking denies smoking denies smoking denies smoking denies smoking denies smoking denies smoking denies smoking denies smoking denies smoking denies smoking denies smoking denies smoking denies smoking denies smoking denies smoking denies smoking denies smoking denies smoking denies smoking denies smoking denies smoking denies smoking denies smoking denies smoking denies smoking denies smoking denies smoking denies smoking denies smoking denies smoking denies smoking denies smoking denies smoking denies smoking denies smoking denies smoking denies smoking denies smoking denies smoking denies smoking denies smoking denies smoking denies smoking denies smoking denies smoking denies smoking denies smoking denies smoking denies smoking denies smoking denies smoking denies smoking denies smoking denies smoking denies smoking denies smoking denies smoking denies smoking denies smoking denies smoking denies smoking denies smoking denies smoking denies smoking denies smoking denies smoking denies smoking denies smoking denies smoking denies smoking denies smoking denies smoking denies smoking denies smoking denies smoking denies smoking denies smoking denies smoking denies smoking denies smoking denies smoking denies smoking denies smoking denies smoking denies smoking denies smoking denies smoking denies smoking denies smoking denies smoking denies smoking denies smoking denies smoking denies smoking denies smoking denies smoking denies smoking denies smoking denies smoking denies smoking denies smoking denies smoking denies smoking denies smoking denies smoking denies smoking denies smoking denies smoking denies smoking denies smoking denies smoking denies smoking denies smoking denies smoking denies smoking denies smoking denies smoking denies smoking denies smoking denies smoking denies smoking denies smoking denies smoking denies smoking denies smoking denies smoking denies smoking denies smoking denies smoking denies smoking denies smoking denies smoking denies smoking denies smoking denies smoking denies smoking denies smoking denies smoking denies smoking denies smoking denies smoking denies smoking denies smoking denies smoking denies smoking denies smoking denies smoking denies smoking denies smoking denies smoking denies smoking denies smoking denies smoking denies smoking denies smoking denies smoking denies smoking denies smoking denies smoking denies smoking denies smoking denies smoking denies smoking denies smoking denies smoking denies smoking denies smoking denies smoking denies smoking denies smoking denies smoking denies smoking denies smoking denies smoking denies smoking denies smoking denies smoking denies smoking denies smoking denies smoking denies smoking denies smoking denies smoking denies smoking denies smoking denies smoking denies smoking denies smoking denies smoking denies smoking denies smoking denies smoking denies smoking denies smoking denies smoking denies smoking denies smoking denies smoking denies smoking denies smoking denies smoking denies smoking denies smoking denies smoking denies smoking denies smoking denies smoking denies smoking denies smoking denies smoking denies smoking denies smoking denies smoking denies smoking denies smoking denies smoking denies smoking denies smoking denies smoking denies smoking denies smoking denies smoking denies smoking denies smoking denies smoking denies smoking denies smoking denies smoking denies smoking denies smoking denies smoking denies smoking denies smoking denies smoking denies smoking denies smoking denies smoking denies smoking denies smoking Problems Problem Type SNOMED Code ICD Code Onset Dates Problem Status W/U Status Risk Notes Problem Overweight (948964543) Overweight (E66.3) Active confirmed Problem Metabolic disorder (39202178) Metabolic disorder, unspecified (E88.9) Active confirmed Problem Primary insomnia (3994937) Primary insomnia (F51.01) Active confirmed Treatment Plan: Medications: -Refill prescriptions for Ambien, tramadol, and oxycodone as per the patient's current regimen. -No changes to the dosage or frequency of the medications at this time. Monitoring: -Monitor for any signs of respiratory issues or other adverse effects due to the combination of medications. -Regular follow-up appointments to reassess the effectiveness and safety of the current medication regimen. Patient Education: -Educate the patient on the risks associated with taking multiple narcotic medications. -Encourage the patient to report any new symptoms or concerns immediately. Follow-up Discussion: The patient will continue with his current medication regimen as he declined any changes during this consultation. A follow-up appointment will be scheduled with Dr. Villegas to further evaluate the patient's condition and medication needs. The patient was advised to monitor for any adverse effects and to report any new symptoms. The provider will send the prescription refills as discussed. Problem Chronic pain syndrome (569679639) Chronic pain syndrome (G89.4) Active confirmed Problem Lymphedema (416424246) Lymphedema, not elsewhere classified (I89.0) Active confirmed Problem Thoracic radiculopathy (89682260) Intervertebral disc disorders with radiculopathy, thoracic region (M51.14) Active confirmed Problem Sciatica (45644652) Lumbago with sciatica, left side (M54.42) Active confirmed Problem Hesitancy of micturition (3410825) Hesitancy of micturition (R39.11) Active confirmed Problem Carpal tunnel syndrome of right wrist (966211196952039) Carpal tunnel syndrome of right wrist (G56.01) Active confirmed Problem Essential hypertension (87994055) Essential hypertension (I10) Active confirmed Problem Vitamin D deficiency (12421257) Vitamin D deficiency (E55.9) Active confirmed Problem Lumbar radiculopathy (543276032) Lumbar radiculopathy (M54.16) Active confirmed Problem Chest pain (88446938) Chest pain, unspecified type (R07.9) Active confirmed Problem Obese class I (finding) (777327061247646) Obesity (BMI 30.0-34.9) (E66.9) Active confirmed Problem Seasonal allergy (298015324) Seasonal allergies (J30.2) Active confirmed Problem Gastroesophageal reflux disease (329444175) Gastroesophageal reflux disease, esophagitis presence not specified (K21.9) Active confirmed Problem Allergic rhinitis (18534055) Allergic rhinitis (J30.9) Active confirmed Problem Fatty liver (403584443) Fatty liver (K76.0) Active confirmed Problem Low back pain (finding) (018304855) Low back pain without sciatica, unspecified back pain laterality, unspecified chronicity (M54.5) Active confirmed Problem Exacerbation of intermittent asthma (826406160) Allergic asthma, mild intermittent, with acute exacerbation (J45.21) Active confirmed Problem Essential hypertension (07328694) Accelerated hypertension (I10) Active confirmed Problem Degeneration of cervical intervertebral disc (99681665) Degenerative disc disease, cervical (M50.30) Active confirmed Problem Displacement of lumbar intervertebral disc without myelopathy (19309655) Bulging lumbar disc (M51.26) Active confirmed Problem Degeneration of lumbar intervertebral disc (70477975) Lumbar degenerative disc disease (M51.36) Active confirmed TREATMENT PLAN: -Medication Refill: Refill the patient's current medication as requested. -Blood Work: Order blood tests to check kidney and liver function, and screen for hepatitis. -Specialist Referrals:Omero songe follow-up with Dr. Alie Reyna for further evaluation. -Schedule follow-up with Dr. Shipman for potential injection therapy for the left knee. -Colonoscopy Referral: Refer the patient for a colonoscopy.Robbi art Instructions: -Advise the patient not to drink alcohol or drive while taking the medication. FOLLOW-UP DISCUSSION: The patient will be contacted by exercise instructor to schedule follow-up appointments with Dr. Shipman. He will also be scheduled for a colonoscopy. The patient is instructed to complete the blood work at an urgent care or lab facility. Once the blood work results are available, a follow-up discussion will be arranged to review the findings and adjust the treatment plan as necessary. The patient is reminded of the importance of adhering to medication guidelines and to avoid alcohol and driving while on the medication. The patient's will need to make a separate appointment for her ocular concerns to receive a referral Problem Atrophic gastritis (96852772) Antral gastritis (K29.50) Active confirmed Problem Dry eyes (672775011) Dry eyes (H04.123) Active confirmed Problem History of chest pain (07942221990270363 ) Hx of chest pain (Z87.898) Active confirmed Problem Occupational injury (744259412) Work related injury (Y99.0) Active confirmed Problem Thoracic radiculopathy (35543323) Thoracic radiculopathy (M54.14) Active confirmed Problem Duodenal ulcer (98113053) Duodenal ulcer (K26.9) Active confirmed Problem Displacement of cervical intervertebral disc without myelopathy (11723846) Bulging of cervical intervertebral disc (M50.20) Active confirmed Problem Sciatica (49682260) Acute low back pain with left-sided sciatica, unspecified back pain laterality (M54.42) Active confirmed Problem Disorder of lumbar disc (878013172) Lumbar disc disorder (M51.9) Active confirmed Problem Chondromalacia of left patella (483662083293859) 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) Active confirmed Problem Chondromalacia of right patella (80546259342197186 ) 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) Active confirmed Problem Patellofemoral disorder, unspecified laterality (M22.2X9) Active confirmed Problem Scoliosis (507568665) Scoliosis of thoracolumbar spine, unspecified scoliosis type (M41.9) Active confirmed Problem Bilateral carpal tunnel syndrome (10731597288302781 ) Bilateral carpal tunnel syndrome (G56.03) Active confirmed Problem Chronic idiopathic constipation (21587085) Chronic idiopathic constipation (K59.04) Active confirmed Problem Benign prostatic hypertrophy without outflow obstruction (772560785) Benign prostatic hyperplasia without lower urinary tract symptoms (N40.0) Active confirmed Problem Lower urinary tract symptoms due to benign prostatic hypertrophy (62022577845071) Benign prostatic hyperplasia with lower urinary tract symptoms (N40.1) Active confirmed Problem Carpal tunnel syndrome (72943753) Carpal tunnel syndrome on both sides (G56.03) Active confirmed Problem Lumbar spondylosis (491646638) Lumbar spondylosis (M47.816) Active confirmed Problem Essential hypertension (39850572) Essential (primary) hypertension (I10) Active confirmed Problem Exposure to communicable disease (504983818) Contact with and (suspected) exposure to other viral communicable diseases (Z20.828) Active confirmed Problem Degeneration of lumbar intervertebral disc (90626441) Other intervertebral disc degeneration, lumbar region (M51.36) Active confirmed Problem Lumbar radiculopathy (438774307) Radiculopathy, lumbar region (M54.16) Active confirmed Problem Balanitis (50692894) Balanitis (N48.1) Active confirmed Problem Thoracic radiculopathy (39669647) Radiculopathy, thoracic region (M54.14) Active confirmed Problem Lumbosacral spondylosis without myelopathy (disorder) (91818268) Spondylosis without myelopathy or radiculopathy, lumbosacral region (M47.817) Active confirmed Problem Infection of bilateral eyes (10260376265819766 ) Eye infection, bilateral (H44.003) Active confirmed Problem Arthritis of left acromioclavicular joint (3530987029527128) 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) Active confirmed Problem Herniation of nucleus pulposus of lumbar intervertebral disc co-occurrent with sciatica (900756136278367) Herniation of lumbar intervertebral disc with radiculopathy (M51.16) Active confirmed Problem Chronic pain (14750624) Chronic pain (G89.4) Active confirmed Problem Chronic pain (16536037) Chronic pain (G89.29) Active confirmed Problem Arthropathy of lumbar facet joint (810172799) Lumbar facet arthropathy (M47.816) Active confirmed Problem Cervical spondylosis (465028864) Cervical spondylosis (M47.812) Active confirmed Problem Lumbosacral spondylosis without myelopathy (84483956) Facet arthritis of lumbosacral region (M47.817) Active confirmed Problem Varicose veins of bilateral lower limbs (07071465413073620 ) Varicose veins of bilateral lower extremities w/ other complications (I83.893) Active confirmed Problem Post-acute COVID-19 (disorder) (3039860016) 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) Active confirmed Problem Non-pressure chronic ulcer of lower leg, limited to breakdown of skin, unspecified laterality (L97.901) Active confirmed Problem Patellofemoral syndrome (534459808) Patellofemoral syndrome, right (M22.2X1) Active confirmed Problem 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) Active confirmed Problem Opioid dependence (74416186) Long-term current use of methadone for opiate dependence (F11.20) Active confirmed Problem Monoarthritis of knee, 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) Active confirmed Vital Signs Heart Rate 64 /min 02/25/2025 Temperature 97.8 degrees Fahrenheit 02/25/2025 Respiratory Rate 16 /min 02/25/2025 Blood pressure diastolic 93 mm Hg 02/25/2025 Oximetry 97 % 02/25/2025 Weight-kg 88.45 kg 06/02/2025 Height 67 in 06/02/2025 Blood pressure systolic 155 mm Hg 02/25/2025 Weight 195 lbs 06/02/2025 BMI 30.54 kg/m2 06/02/2025 Procedures Procedure Date Ordered Date Performed Result Body Sit e IV Insertion 09/13/2024 09/13/2024 N/A Encounters Encounter Location Date Provider Diagnosis 2 [facility] [address] [place], [place] [id number] 06/20/2024 ALIE SCHULTE Screen for colon cancer Z12.11 [place] [address] [place] [address] 06/03/2024 BEBETO VILLEGAS remote computer terminal operator (current) use of opiate analgesic Z79.891 and Lumbar disc disorder M51.[address] [place] [address] 06/13/2024 RODOLFO MEZA [facility] [address] [place] [address] 06/17/2024 BEBETOJORGE VILLEGAS Lumbar disc disorder M51.9 ; Other chronic pain G89.29 and Primary insomnia F51.[address] [place] [address] 06/17/2024 IRENE GUALLPA [facility] [address] [place] [address] 06/25/2024 BEBETOJORGE VILLEGAS Lumbar disc disorder M51.9 and Back pain M54.9 [facility] [address] [place] [address] 06/27/2024 BEBETO VILLEGAS [place] [address] [place] [address] 07/01/2024 BEBETO VILLEGAS Lumbar disc disorder M51.9 and Back pain M54.9 [place] [address] [place] [address] 07/02/2024 BEBETO VILLEGAS Left hand pain M79.642 and Chronic pain syndrome G89.4 [facility] [address] [place] [address] 07/02/2024 BEBETO VILLEGAS Left hand pain M79.642 [place] [address] [place] [address] 07/05/2024 BEBETOJORGE VILLEGAS Left hand pain M79.642 and Encounter to discuss test results Z71.89 [facility] [address] [place] [address] 07/02/2024 BEBETO VILLEGAS [place] [address] [place] [address] 07/15/2024 BEBETO VILLEGAS Lumbar disc disorder M51.[address] [place] [address] 07/24/2024 BEBETO VILLEGAS [place] [address] [place] [address] 07/26/2024 BEBETO VILLEGAS Primary insomnia F51.01 ; Lumbar disc disorder M51.9 ; Seasonal allergies J30.2 ; Acute cough R05.1 and Allergic asthma, mild intermittent, with acute exacerbation J45.21 [place] [address] [place] [address] 08/26/2024 BEBETO VILLEGAS Lumbar disc disorder M51.9 [place] [address] [place] [address] 07/29/2024 BEBETO VILLEGAS Cough R05.[address] [address] 07/29/2024 BEBETO VILLEGAS [place] [address] [place] [address] 08/02/2024 BEBETO VILLEGAS Acute left-sided low back pain without sciatica M54.50 ; Encounter related to worker's compensation claim Z02.6 ; Injury due to fall, initial encounter W19.XXXA and Left arm pain M79.602 [place] [address] [place] [address] 08/02/2024 BEBETO VILLEGAS Rash of groin R21 an d Intertrigo L30.[address] [address] 08/02/20[address]AS [address] [address] 08/02/2024 BEBETO VILLEGAS Encounter related to worker's compensation claim Z02.6 ; Injury due to fall, initial encounter W19.XXXA ; Left arm pain M79.602 and Acute left-sided low back pain without sciatica M54.[address] [address] 08/02/2024 [address]GAS [address] [place] [address] 08/02/2024 IRENE GUALLPA Acute bilateral low back pain without sciatica M54.50 and Injury of left elbow, initial encounter S59.902A [facility] [address] [place] [address] 08/29/2024 GRACE HERRERA Other enthesopathy o f right foot and ankle M77.51 ; Valgus deformity, not elsewhere classified, right ankle M21.071 ; Valgus deformity, not elsewhere classified, left ankle M21.072 ; Posterior tibial tendon dysfunction, right M76.821 and Pain in right foot M79.671 [place] [address] [place] [address] 08/13/2024 CALE GUERRERO Lumbar radiculopathy M54.16 and Other chronic pain G89.29 [place] [address] [place] [address] 08/15/2024 HIRAM BUCK Lumbar radiculopathy M54.16 ; Encounter for annual general medical examination with abnormal findings in adult Z00.01 ; Primary insomnia F51.01 ; Allergic asthma, mild intermittent, with acute exacerbation J45.21 ; Colon cancer screening Z12.11 ; Advanced care planning/counseling discussion Z71.89 and Left ankle pain M25.572 [place] [address] [place] [address] 08/19/2024 CALE RAMOSCRESENCIO COVID-19 U07.1 and Fever, unspecified fever cause R50.[address] [address] 08/29/2024 GRACE HERRERA [place] [address] [place] [address] 09/02/2024 BEBETO VILLEGAS Generalized body aches R52 and Lumbago with sciatica, left side M54.[address] [place] [address] 09/03/2024 BEBETO VILLEGAS [facility] [address] [place] [address] 09/16/2024 RODOLFO MEZA Lumbar radiculopathy M54.16 ; Facet arthritis of lumbosacral region M47.817 ; Thoracic radiculopathy M54.14 and Lumbar spondylosis M47.816 [place] [address] [place] 09/13/2024 BEBETO VILLEGAS Accidental fall, initial encounter W19.XXXA ; Encounter related to worker's compensation claim Z02.6 ; Acute pain due to trauma G89.11 and Rib pain on right side R07.81 [place] [address] [place] [place] 09/13/2024 BEBETO VILLEGAS remote computer terminal 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 (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) use of opiate analgesic Z79.891 and Lumbar radiculopathy M54.16 [place] [address] [place] [address] 09/13/2024 IRENE GUALLPA Injury of abdomen, initial encounter S39.91XA and Rib pain on right side R07.[address] [place] [address] 09/13/2024 IRENE GUALLPA [place] [address] [place] 09/13/2024 CEASARBernardino LOCO Closed fracture of multiple ribs of right side, initial encounter S22.41XA [place] [address] [place] [place] 09/16/2024 BEBETO VILLEGAS Scoliosis of thoracolumbar spine, unspecified scoliosis type M41.9 and Other chronic pain G89.29 [address] [place] [address] 09/18/2024 RODOLFO DAMACHARLA Lumbar radiculopathy M54.16 ; Facet arthritis of lumbosacral region M47.817 ; Thoracic radiculopathy M54.14 and Lumbar spondylosis M47.816 [place] [address] [place] [address] 09/16/2024 BEBETO VILLEGAS Closed fracture of multiple ribs of right side, initial encounter S22.41XA ; Encounter related to worker''s compensation claim Z02.6 and Encounter for issuance of medical certificate Z02.[address] [place] [address] 09/19/2024 JANET SHIPMAN Closed fracture of multiple ribs of right side, initial encounter S22.41XA ; Encounter related to worker's compensation claim Z02.6 ; Lumbar disc disorder M51.9 and Right hip pain M25.[address] [place] [address] 09/18/2024 IRENE GUALLPA Closed fracture of multiple ribs of right side with routine healing, subsequent encounter S22.41XD [place] [address] [place] [address] 09/19/2024 BEBETO VILLEGAS Rib pain R07.81 and Encounter related to worker's compensation claim Z02.[address] [place] [address] 09/19/2024 BEBETO VILLEGAS Chronic pain G89.4 [place] [address] [place] [address] 09/26/2024 BEBETO VILLEGAS Closed fracture of multiple ribs of right side, initial encounter S22.41XA ; Encounter related to worker's compensation claim Z02.6 and Lumbar disc disorder M51.9 [place] [address] [place] [address] 09/26/2024 BEBETO VILLEGAS Nonintractable headache, unspecified chronicity pattern, unspecified headache type R51.9 and Chest pain, unspecified type R07.9 [place] [address] [place] [address] 10/01/2024 MARY TRAORE Essential hypertension I10 ; Obesity (BMI 30.0-34.9) E66.9 ; Pain in right leg M79.604 ; Pain in left leg M79.605 and Lower extremity edema R60.[address] [place] [address] 09/30/2024 BEBETO VILLEGAS Back pain M54.9 2 [facility] 2 [place] [id number] 09/30/2024 ALIE SCHULTE Screen for colon cancer Z12.11 [facility] [address] [address] 10/18/2024 MARY TRAORE Lower extremity mario a R60.[address] [place] [address] 10/18/2024 MARY LEÓN Lower extremity mario a R60.[address] [place] [address] 10/02/2024 PPROVIDER OUTSIDE Generalized abdomina l pain R10.[address] [address] 10/02/2024 PPROVIDER OUTSIDE [address] [address] 10/02/2024 BEBETO VILLEGAS [address] [address] 10/02/2024 PPROVIDER OUTSIDE [address] [place] [address] 10/11/2024 BEBETO VILLEGAS Primary insomnia F51.01 ; Lumbar disc disorder M51.9 ; Lumbar radiculopathy M54.16 ; Acute cough R05.1 ; [facility] current use of opiate analgesic Z79.891 and Allergic asthma, mild intermittent, with acute exacerbation J45.[address] [place] [address] 10/11/2024 BEBETO VILLEGAS Closed fracture of multiple ribs of right side, initial encounter S22.41XA ; Encounter related to worker''s compensation claim Z02.6 and Encounter for issuance of medical certificate Z02.[address] [place] [address] 11/08/2024 BEBETO VILLEGAS Encounter related to worker''s compensation claim Z02.6 ; Chronic pain G89.29 ; Encounter for issuance of medical certificate Z02.79 ; Rib pain on right side R07.81 ; Closed fracture of multiple ribs of right side, initial encounter S22.41XA ; Herniation of lumbar intervertebral disc with radiculopathy M51.16 and Intervertebral disc disorders with radiculopathy, thoracic region M51.[address] [place] [address] 10/14/2024 BEBETO VILLEGAS URI (upper respiratory infection) J06.9 ; Sinus pressure J34.89 ; Dry eyes H04.123 ; Cough R05.9 ; Headache G44.319 and Low grade fever R50.[address] [place] [address] 10/16/2024 BEBETO VILLEGAS URI (upper respiratory infection) J06.9 [place] [address] [place] [address] 10/24/2024 BEBETO VILLEGAS Lumbar spondylosis M47.816 [facility] [address] [place] [address] 10/25/2024 RODOLFO DAMACHARGROVER Thoracic radiculopathy M54.14 ; Lumbar radiculopathy M54.16 ; Lumbar spondylosis M47.816 and Work related injury Y99.0 [place] [address] [place] [address] 10/29/2024 RODOLFO SUSANA Thoracic radiculopathy M54.14 [place] [address] [place] [address] 10/29/2024 RODOLFO DAMJUAN PABLO Lumbar radiculopathy M54.16 and Lumbar spondylosis M47.[address] [place] [address] 10/25/2024 BEBETO VILLEGAS [place] [address] [place] [address] 10/28/2024 BEBETO VILLEGAS Rib pain on right side R07.81 ; Closed fracture of multiple ribs of right side, initial encounter S22.41XA and Encounter related to worker's compensation claim Z02.6 [facility] [address] [place] [address] 11/02/2024 RODOLFOCHARMAINE MEZA Lumbar radiculopathy M54.16 ; Lumbar spondylosis M47.816 ; Thoracic radiculopathy M54.14 and Work related injury Y99.0 [place] [address] [place] [address] 11/05/2024 BEBETO VILLEGAS Primary insomnia F51.01 and Other chronic pain G89.29 [place] [address] [place] [address] 11/05/2024 BEBETO VILLEGAS Rib pain on right side R07.81 ; Closed fracture of multiple ribs of right side, initial encounter S22.41XA ; Encounter related to worker's compensation claim Z02.6 ; Herniation of lumbar intervertebral disc with radiculopathy M51.16 and Intervertebral disc disorders with radiculopathy, thoracic region M51.14 [address] [place] [address] 12/05/2024 BEBETO VILLEGAS Primary insomnia F51.01 ; Lumbar radiculopathy M54.16 and Medication management Z79.899 [address] [place] [address] 11/11/2024 MARY TRAORE Essential hypertension I10 ; Obesity (BMI 30.0-34.9) E66.9 ; Pain in right leg M79.604 ; Pain in left leg M79.605 and Lower extremity edema R60.[address] [place] [address] 11/07/2024 BEBETO VILLEGAS [address] [place] [address] 12/06/2024 MARY TRAORE Lower extremity mario a R60.0 [place] [address] [place] [address] 11/12/2024 BEBETO VILLEGAS [address] [place] [address] 11/12/2024 BEBETO VILLEGAS Primary insomnia F51.01 ; Chondromalacia, right knee M94.261 ; Other chronic pain G89.29 and Lumbar radiculopathy M54.16 [address] [place] [address] 11/15/2024 BEBETO VILLEGAS Lumbar radiculopathy M54.16 ; Chronic pain syndrome G89.4 and Encounter related to worker's compensation claim Z02.6 [place] [address] [place] [address] 11/26/2024 BEBETO VILLEGAS Acute cough R05.1 ; Acute URI J06.9 and Allergic rhinitis J30.[address] [address] 11/26/2024 BEBETO VILLEGAS [place] [address] [place] [address] 11/26/2024 BEBETO VILLEGAS Rib pain on right side R07.81 ; Closed fracture of multiple ribs of right side, initial encounter S22.41XA ; Encounter related to worker's compensation claim Z02.6 ; Herniation of lumbar intervertebral disc with radiculopathy M51.16 and Intervertebral disc disorders with radiculopathy, thoracic region M51.14 [facility] [address] [place] [address] 11/29/2024 RODOLFO DAMACHARGROVER Lumbar radiculopathy M54.16 ; Lumbar spondylosis M47.816 ; Thoracic radiculopathy M54.14 and Work related injury Y99.0 [place] [address] [place] [address] 12/02/2024 ERIN CONLEY Upper respiratory tract infection, unspecified type J06.[address] [address] 12/09/2024 BEBETO VILLEGAS [address] [address] 12/18/2024 RIENE GUALLPA [facility] [address] [place] [address] 12/23/2024 RODOLFO DAMJUAN PABLO Lumbar radiculopathy M54.16 ; Lumbar spondylosis M47.816 ; Thoracic radiculopathy M54.14 and Work related injury Y99.0 [place] [address] [place] [address] 12/23/2024 ERIN CONLEY Upper respiratory tract infection, unspecified type J06.9 [facility] [address] [place] [address] 12/24/2024 MARY LEÓN Lower extremity mario a R60.0 ; Essential hypertension I10 ; Obesity (BMI 30.0-34.9) E66.9 ; Pain in right leg M79.604 and Pain in left leg M79.[address] [place] [address] 12/26/2024 BEBETO VILLEGAS Encounter to discuss test results Z71.89 ; Lumbar radiculopathy M54.16 ; Chronic cough R05.3 ; Essential hypertension I10 ; Lower extremity edema R60.0 and Obesity (BMI 30.0-34.9) E66.[address] [place] [address] 12/26/2024 BEBETO VILLEGAS Closed fracture of multiple ribs of right side, initial encounter S22.41XA ; Rib pain on right side R07.81 ; Encounter related to worker's compensation claim Z02.6 ; Herniation of lumbar intervertebral disc with radiculopathy M51.16 ; Intervertebral disc disorders with radiculopathy, thoracic region M51.14 and Back pain M54.[address] [place] [address] 01/02/2025 BEBETO VILLEGAS Medication managemen t Z79.899 ; Chest congestion R09.89 ; Cough R05.9 ; Sinus pressure J34.89 ; Lumbar radiculopathy M54.16 ; Primary insomnia F51.01 ; Allergic asthma, mild intermittent, with acute exacerbation J45.21 and remote computer terminal operator current use of opiate analgesic Z79.[address] [place] [address] 01/02/2025 BEBETO VILLEGAS Rib pain on right side R07.81 ; Closed fracture of multiple ribs of right side, initial encounter S22.41XA ; Encounter related to worker's compensation claim Z02.6 ; Herniation of lumbar intervertebral disc with radiculopathy M51.16 ; Intervertebral disc disorders with radiculopathy, thoracic region M51.14 and Back pain M54.[address] [place] [address] 01/29/2025 BEBETO VILLEGAS [address] [place] [address] 02/10/2025 BEBETO VILLEGAS Lumbar radiculopathy M54.16 ; Allergic asthma, mild intermittent, with acute exacerbation J45.21 ; Seasonal allergies J30.2 ; Primary insomnia F51.01 ; Other chronic pain G89.29 and remote computer terminal operator current use of opiate analgesic Z79.[address] [place] [address] 02/11/2025 BEBETO VILLEGAS Back pain M54.9 [address] [place] [address] 02/25/2025 ERIN CONLEY Other low back pain M54.59 [address] [place] [address] 03/07/2025 BEBETO VILLEGAS Lumbar radiculopathy M54.16 ; Primary insomnia F51.01 ; Seasonal allergies J30.2 ; Vitamin D deficiency E55.9 and [facility] current use of opiate analgesic Z79.891 [facility] [address] [place] [address] 03/13/2025 BEBETO VILLEGAS [address] [place] [address] 05/27/2025 BEBETO VILLEGAS Lumbar radiculopathy M54.16 ; Abdominal pain R10.84 ; remote computer terminal operator current use of opiate analgesic Z79.891 and Medication management Z79.899 [address] [place] [address] 06/02/2025 BEBETO VILLEGAS Essential hypertension I10 ; Abdominal pain R10.84 and Medication management Z79.899 [facility] [address] [place] [address] 06/02/2025 BEBETO VILLEGAS [facility] [address] [place] [address] 06/14/2024 ALIE SCHULTE [facility] [address] [place] [address] 06/25/2024 GRACE HERRERA [facility] [address] [place] [address] 06/25/2024 BEBETO VILLEGAS [address] [facility] [address] [facility] [place] [address] 07/02/2024 BEBETO VILLEGAS [facility] [address] [place] [address] 07/05/2024 BEBETO VILLEGAS [facility] [address] [place] [address] 07/22/2024 DANNY HEREDIA [facility] [address] [place] [address] 07/26/2024 BEBETO VILLEGAS [facility] [address] [place] [address] 08/19/2024 CALE GUERRERO [address] [facility] [address] [place] [facility] [place] [address] 08/27/2024 BEBETO VILLEGAS [facility] [address] [place] [address] 08/30/2024 BEBETO VILLEGAS [facility] [address] [place] [address] 09/02/2024 BEBETO VILLEGAS [facility] [address] [place] [address] 09/04/2024 RODOLFO MEZA [address] [facility] [address] [facility] [place] [address] 09/19/2024 JANET SHIPMAN [facility] [address] [place] [address] 09/19/2024 BEBETO VILLEGAS [facility] [address] [place] [address] 09/24/2024 BEBETO VILLEGAS Primary insomnia F51.01 [facility] [address] [place] [address] 10/21/2024 RODOLFO MEZA [facility] [address] [place] [address] 10/24/2024 BEBETO VILLEGAS [facility] [address] [place] [address] 10/25/2024 ALIE SCHULTE [facility] [address] [place] [address] 10/25/2024 [facility] [address] [place] [address] 11/02/2024 [facility] [address] [place] [address] 11/06/2024 [facility] [address] [place] [address] 11/26/2024 [facility] [address] [place] [address] 11/26/2024 BEBETO URBINALATI [facility] [address] [place] [address] 11/28/2024 BEBETO URBINALATI [facility] [address] [place] [address] 11/29/2024 [facility] [address] [place] [address] 11/29/2024 [facility] [address] [place] [address] 12/18/2024 [facility] [address] [place] [address] 12/27/2024 BEBETO URBINALATI [facility] [address] [place] [address] 02/25/2025 BEBETO VILLEGAS Primary insomnia F51.01 [facility] [address] [place] [address] 03/10/2025 BEBETO URBINALATI [facility] [address] [place] [address] 04/09/2025 BEBETO URBINALATI [facility] [address] [place] [address] 05/27/2025 BEBETO VILLEGAS Lumbar radiculopathy M54.16 [facility] [address] [place] [address] 05/27/2025 BEBETO VILLEGAS Primary insomnia F51.01 and Lumbar radiculopathy M54.16 [facility] [address] [place] [address] 05/29/2025 BEBETO VILLEGAS Assessments Encounter Date Diagnosis (ICD Code) Assessment Notes Treatment Notes Treatment Clinical Notes Section Notes 08/02/2024 Rash of groin (ICD-10 - R21) Prescribed nystatin powder bid x10 days.Discussed potential side effects.Emphasiz ed adherence importance.Expla ined non-adherence risks.Advised keeping area dry.Recommended loose clothing. MEDICAL DECISION MAKING AND TREATMENT PLAN: The patient's medical history was reviewed, and medications were reconciled. Given the presentation of a rash between the thighs, the diagnosis of intertrigo was made. Nystatin powder was prescribed to be applied to the affected area twice daily for 10 days. The potential side effects of nystatin, including skin irritation and allergic reactions, were discussed in detail with the patient. The importance of adherence to the treatment regimen was emphasized to ensure effective resolution of the rash. The risks and complications of non-adherence, such as persistent or worsening rash and potential secondary infections, were explained. The patient was advised to keep the affected area clean and dry to prevent further irritation and promote healing. Additionally, the patient was recommended to wear loose-fitting clothing to reduce friction and moisture buildup. Follow-up was recommended if the rash does not improve or if any new symptoms develop. - Prescribed nystatin powder bid x10 days. - Discussed potential side effects. - Emphasized adherence importance. - Explained non-adherence risks. - Advised keeping area dry. - Recommended loose clothing. 09/02/2024 Generalized body aches (ICD-10 - R52) Plan of Care: Vitamin B12 injection given. Monthly injections planned for six months. Folic acid 1 mg daily prescribed.Blanca rosado Side Effects: B12 injection: Pain at the injection site. Folic acid: Rarely, allergic reactions.Import ance of Adherence: Essential for correcting B12 deficiency and preventing associated complications.Ri sks of Non-Adherence: Progression of deficiency, leading to neurological symptoms, anemia, and other health problems.Non-pha rmacological Strategies: Dietary changes to include X74-nogq foods (e.g., meat, poultry, fish, eggs, dairy). This is a 58-year-old male patient presenting today via telemed for medical management of low back pain. He reports that his tramadol prescription requires a [facility]. He reports generalized body pain and requests a vitamin B12 injection, which he has received in the past, usually for 6 months. He is requesting Toradol injections for pain relief. He offers no other complaint today. Denies any significant complaints of chest pain, palpitations, shortness of breath, or dizziness today. Medical Decision-Satish kay: Tino's chronic pain warrants ongoing management. Toradol injections were deemed appropriate for short-term pain relief. His request for vitamin B12 injections suggests a possible deficiency, which should be further evaluated. The need for prior authorization for tramadol will be addressed. Treatment Plan: Toradol 30 mg IM injection was ordered. A vitamin B12 injection was ordered, with a plan for monthly injections for six months. Folic acid 1 mg daily was prescribed. The need for prior authorization for tramadol will be addressed with the [place]. Follow-up Discussion: Tino should follow up with his primary care physician and marketing information analyst, Dr. Preciado, to discuss long-term pain management strategies and assess for vitamin B12 deficiency. He should report any worsening or new symptoms. 09/16/2024 Closed fracture of multiple ribs of right side, initial encounter (ICD-10 - S22.41XA) Plan of Care: Continued follow-up with specialists; consideration of pain management interventions.Po tential Side Effects: Pain medications could cause drowsiness, constipation, dependency.Impor tance of Adherence: Xavier for effective pain management and preventing complications such as pneumonia due to limited mobility.Risks of Non-Adherence: Prolonged pain, impaired healing, possible surgical intervention.Non -Pharmacological Strategies: Use of ice packs, breathing exercises to prevent lung complications, gentle stretching within pain limits The patient is a 58-year-old male who 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 He reports slipping and falling while descending stairs, landing on his side, and hearing a crack on the right side of his ribcage. A subsequent CAT scan revealed nondisplaced fractures of the right posterior 11th and 12th ribs, as well as a nondisplaced fracture of the right transverse process of L1. He experiences pain with deep breathing and difficulty moving his torso due to this pain. He offers no other complaint today and denies any significant complaints of chest pain, palpitations, shortness of breath, or dizziness. Medical Decision Making: Fractures of Right Ribs and L1 Transverse Process: The primary concern is effective pain management and ensuring proper healing. Given the location of the fractures, the patient is likely experiencing significant discomfort affecting respiratory function and mobility. Continued coordinated care with Dr. Meaz is critical, particularly to manage pain and monitor healing progress. Referral to pain management may offer relief through potential interventions like nerve blocks or targeted injections. Treatment Plan: Patient was advised to continue follow-up with Dr. Meza. [place] paperwork was facilitated for a planned recovery period of one month, allowing for re-evaluation as necessary for extended leave. Pain management strategies, possibly including nerve blocks, should be discussed with the specialist to aid in recovery and enhance comfort. Patient was also informed about the importance of ensuring appropriate movement within tolerable limits to prevent complications such as pneumonia from immobility. Coordination with workman's compensation for financial support during recovery was highlighted. Follow-up Discussion: The patient will remain under Dr. Meza's care and has been advised to keep all follow-up appointments. An appointment with pain management was recommended to evaluate additional pain control options. The importance of monitoring for any symptoms such as increased pain, fever, or difficulty breathing was emphasized, and urgent care was suggested if symptoms worsen. Continued communication with his employer and workman's compensation to manage leave and ensure a safe return to work is necessary. 10/28/2024 Rib pain on right side (ICD-10 - R07.81) Plan of Care: Continued assessment and modification of pain management strategies, including possible medication adjustments or physical therapy referrals.Import ance of Adherence: Highlighted the need to adhere to advice and treatment to prevent complications and support recovery. 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 He reports slipping and falling while descending stairs, landing on his side, and hearing a crack on the right side of his ribcage, suggestive of rib fractures. The patient requests an extension for [facility] paperwork related to this injury. He has been consulting with Dr. Meza, who has ordered MRIs for further evaluation but is seeking an earlier appointment due to ongoing pain and suspected involvement of his lower back. Patient offers no other complaint today. Denies any significant complaints of chest pain, palpitation, shortness of breath, or dizziness today. Medical Decision Making and Differential Diagnoses Rib Fracture: Diagnosed based on the reported fall and symptoms; further imaging through MRI is planned for a detailed assessment. Chronic Pain: Observed in the rib and lower back areas, potentially caused or exacerbated by the fall; considering modification of treatment to address pain management effectively. Fall on Same Level from Stairs: Contributed to the rib fracture and possibly to the exacerbation of back pain; ongoing assessment for additional injuries or complications. Treatment Plan The [facility] paperwork was completed and signed to accommodate an extension request due to his ongoing injury and discomfort. Follow-up imaging with an MRI was prioritized to assess his rib and lower back injuries more comprehensivel y. Efforts were made to expedite his MRI appointment for earlier completion. Pain management strategies were discussed, potentially adjusting current treatment to adequately address his symptoms and improve function. Continued follow-up with Dr. Meza and coordination of care for further interventions such as possible steroid injections or physical therapy were recommended based on the MRI results. Follow-Up Discussion Further evaluation and management depend on MRI findings. The patient should be monitored for any worsening pain, changes in mobility, or new symptoms that may arise. Adjustments to his care should ensure adequate pain control and address any potential complications. Ongoing communication with his care providers, including Dr. Meza and any additional specialists, will help tailor a comprehensive treatment strategy aimed at promoting recovery and return to work. 05/27/2025 Lumbar radiculopathy (ICD-10 - M54.16) 05/27/2025 Primary insomnia (ICD-10 - F51.01) 05/27/2025 Lumbar radiculopathy (ICD-10 - M54.16) 06/02/2025 Essential hypertension (ICD-10 - I10) - [...] after labs and imaging for further management. 02/11/2025 Back pain (ICD-10 - M54.9) 02/25/2025 Primary insomnia (ICD-10 - F51.01) 02/25/2025 Other low back pain (ICD-10 - M54.59) 59-year-old male presents urgent care secondary to acute on chronic low back painPatient follows with pain management and had recent MRINo new symptomsWill give 30 mg IM ToradolPatient prescribed medication at home by Dr. Bridges discharged in stable condition 03/07/2025 Lumbar radiculopathy (ICD-10 - M54.16) Refills [...] benefits of NSAID therapy were reviewed, including gastrointestinal , renal, and cardiovascular complications. The patient was encouraged to incorporate non-pharmacologi perry strategies such as physical therapy, stretching, [...] insomnia, Montelukast for allergies, and Vitamin D supplementatio n. The patient requests refills for all these [...] include lumbar disc herniation, spinal stenosis, and musculoskeleta l strain, but the chronicity and response to current therapy support the diagnosis of lumbar radiculopathy. Insomnia is likely multifactorial , possibly exacerbated by chronic pain and opioid use. Seasonal allergies are well-controlle d on Montelukast, and vitamin D deficiency is managed with supplementatio n. The patient's request for a Toradol injection was considered appropriate for acute pain exacerbation, given the lack of reported side effects and the need for multimodal pain management. Continued monitoring for opioid-related adverse effects and potential medication interactions is warranted. TREATMENT PLAN: The patient's medical history was reviewed and medications were reconciled.Ref ills for Oxycodone, Tramadol, Ambien, Montelukast, and Vitamin D were provided as the patient reported good efficacy and no adverse effects. The ROAD HOGGER OPERATOR I-STOP was reviewed to ensure appropriate use and monitoring of medication. A Toradol (ketorolac) 60 mg intramuscular injection was ordered to address acute exacerbation of back pain. The patient was counseled on the risks and benefits of opioid and NSAID use, including potential side effects, risk of dependence, gastrointestin al, renal, and cardiovascular complications, and the importance of adherence to prescribed regimens. Non-pharmacolo gical strategies such as physical therapy, stretching, and [...] monitor for any side effects or complications. 05/27/2025 Lumbar radiculopathy (ICD-10 - M54.16) - [...] dependence, sedation, constipation, and respiratory depression. The ROAD HOGGER OPERATOR I-STOP was reviewed to ensure appropriate [...] times daily for chronic pain management. The ROAD HOGGER OPERATOR I-STOP was reviewed for appropriate use. [...] sooner if new symptoms or concerns arise. 12/23/2024 Lumbar radiculopathy (ICD-10 - M54.16) 1. The patient has been complaining of radicular pain affecting both lower extremities, especially worse in the right compared to the left lower extremity for which he was scheduled for the transforaminal epidural steroid injection at L5-S1 and S1 on both sides, but it is not being approved by the Worker's Comp, so we are going to resubmit for the transforaminal epidural steroid injection at L4-L5 and L5-S1 on both sides. 2. MRI of the lumbar spine, which was done recently, reviewed on the PACS system. MRI does show new disc herniation at T12-L1 level. MRI is also showing pzycoyyr-pn-sdgn re foraminal stenosis at L3-L4, L4-L5 and L5-S1 levels and dnyk-pp-ozmheauv at other levels. There could be a possible impingement of L1-L2, L2-L3 and L4-L5 levels. 3. Risks and benefits explained to the patient. All his questions were answered. He voiced understanding and was amenable to the treatment plan. 12/23/2024 Upper respiratory tract infection, unspecified type (ICD-10 - J06.9) 59-year-old male presents urgent care secondary to fever, body aches and chills since last night, mild shortness of breathNo findings of focal bacterial infectionWill obtain rapid COVID, rapid fluWill obtain CBC, BMPObtain chest x-rayPatient given 600 mg ibuprofen at triage Patient with low-grade feverWhite blood cell count 10.7, hemoglobin 15.6BMP unremarkableChes t x-ray with no acute findingsNo findings of focal bacterial infectionSuspect viral infectionCounsel ed on antipyretics and increase fluid intakeWill give patient 15 mg IM ToradolPatient discharged in stable condition Level 4 12/24/2024 Essential hypertension (ICD-10 - I10) 12/24/2024 Lower extremity edema (ICD-10 - R60.0) 12/26/2024 Rib pain on right side (ICD-10 - R07.81) Provided an official letter regarding his disability status. Recommended ongoing communication with compensation representatives and regular reassessment. This is a 59-year-old male patient presenting today via telemed for a workers compensation follow-up visit. The patient reported severe back pain related to a workers' compensation case, for which he has been awaiting approval for injections. He expressed frustration with the ongoing pain and the delay in receiving treatment. He offers no other complaint today. Denies any significant complaints of chest pain, palpitation, shortness of breath, or dizziness today. MEDICAL DECISION MAKING His back pain, related to a workers' compensation case, requires careful management, including pain relief and addressing the underlying cause. The plan will involve considering non-opioid options for pain management and ensuring follow-up for his workers' compensation case. TREATMENT PLAN -The medical history was reviewed and discussed in great detail. -Workers compensation visit was done today. -Toradol injection was advised to be administered for back pain relief. -Recommended non-opioid pain management options, including NSAIDs and physical therapy. -Emphasized the importance of adherence to the treatment plan and the risks of non-adherence. -Discussed potential complications of untreated back pain, such as decreased mobility and quality of life. FOLLOW-UP DISCUSSION He was advised to follow up as needed to assess the effectiveness of the pain management plan. He was also instructed to contact the office if his symptoms worsen or if he experiences any side effects from the new medications 12/26/2024 Closed fracture of multiple ribs of right side, initial encounter (ICD-10 - S22.41XA) Plan of Care: Monitoring and pain management, possible follow-up imaging for confirmation and assessment of healing.Potentia l Side Effects: Emphasized monitoring for potential complications such as worsening pain or respiratory issues. This is a 59-year-old male patient presenting today via telemed for a workers compensation follow-up visit. The patient reported severe back pain related to a workers' compensation case, for which he has been awaiting approval for injections. He expressed frustration with the ongoing pain and the delay in receiving treatment. He offers no other complaint today. Denies any significant complaints of chest pain, palpitation, shortness of breath, or dizziness today. MEDICAL DECISION MAKING His back pain, related to a workers' compensation case, requires careful management, including pain relief and addressing the underlying cause. The plan will involve considering non-opioid options for pain management and ensuring follow-up for his workers' compensation case. TREATMENT PLAN -The medical history was reviewed and discussed in great detail. -Workers compensation visit was done today. -Toradol injection was advised to be administered for back pain relief. -Recommended non-opioid pain management options, including NSAIDs and physical therapy. -Emphasized the importance of adherence to the treatment plan and the risks of non-adherence. -Discussed potential complications of untreated back pain, such as decreased mobility and quality of life. FOLLOW-UP DISCUSSION He was advised to follow up as needed to assess the effectiveness of the pain management plan. He was also instructed to contact the office if his symptoms worsen or if he experiences any side effects from the new medications 12/26/2024 Encounter to discuss test results (ICD-10 - Z71.89) -Reviewed and discussed the results of diagnostics at length. This is a 59-year-old male patient presenting today via telemed for an urgent care follow up visit. The patient presented with a persistent cough that has not improved despite previous treatments. The recent blood work done on 12/23/2024 revealed low MPV at 6.3; otherwise, unremarkable. The X-ray chest done on 12/23/2024 showed no acute pulmonary disease. He mentioned that he has been experiencing tremors, a runny nose, chest congestion, and a change in his voice. He also noted that his cough is particularly troublesome at night, preventing him from sleeping. He requested a prescription for a cough syrup, which he had used previously with some relief. Additionally, he is requesting refills of his oxycodone. He denies any potential side effects towards the medications and reports the medications are working well. He offers no other complaint today. Denies any significant complaints of chest pain, palpitation, shortness of breath, or dizziness today. MEDICAL DECISION MAKING His persistent cough, despite previous treatments and a clear X-ray, suggests a need for further evaluation and possibly a different therapeutic approach. The differential diagnoses include chronic bronchitis, post-infectiou s cough, or an allergic reaction. Given his request for oxycodone, a controlled substance, it is crucial to consider the potential for misuse and explore alternative treatments. TREATMENT PLAN -The medical history was reviewed and discussed in great detail. -Reviewed and discussed the results of diagnostics at length . -Prescribed Tussionex cough syrup to be taken half a teaspoon at bedtime as directed. The mechanism of action, benefits, and side effects were discussed with the patient. - ROAD HOGGER OPERATOR-I stop was reviewed with the patient today. -Advised on the importance of adherence to the new medication and potential side effects. -Discussed non-pharmacolo gical strategies such as using a humidifier and staying hydrated. FOLLOW-UP DISCUSSION He was advised to follow up as needed to assess the effectiveness of the new cough syrup. He was also instructed to contact the office if his symptoms worsen or if he experiences any side effects from the new medications. 12/26/2024 Lumbar radiculopathy (ICD-10 - M54.16) -Reviewed and reconciled medications. -The refills were provided as requested. - ROAD HOGGER OPERATOR-I stop was reviewed with the patient today. Adv on general care back. Use heating pad, Bengay cream to back as needed. Avoid any identifying/iden tified triggers. Sleep on firm mattress. Bend from knees not back to pick pulling machine tender objects. Adv on proper lifting technique. This is a 59-year-old male patient presenting today via telemed for an urgent care follow up visit. The patient presented with a persistent cough that has not improved despite previous treatments. The recent blood work done on 12/23/2024 revealed low MPV at 6.3; otherwise, unremarkable. The X-ray chest done on 12/23/2024 showed no acute pulmonary disease. He mentioned that he has been experiencing tremors, a runny nose, chest congestion, and a change in his voice. He also noted that his cough is particularly troublesome at night, preventing him from sleeping. He requested a prescription for a cough syrup, which he had used previously with some relief. Additionally, he is requesting refills of his oxycodone. He denies any potential side effects towards the medications and reports the medications are working well. He offers no other complaint today. Denies any significant complaints of chest pain, palpitation, shortness of breath, or dizziness today. MEDICAL DECISION MAKING His persistent cough, despite previous treatments and a clear X-ray, suggests a need for further evaluation and possibly a different therapeutic approach. The differential diagnoses include chronic bronchitis, post-infectiou s cough, or an allergic reaction. Given his request for oxycodone, a controlled substance, it is crucial to consider the potential for misuse and explore alternative treatments. TREATMENT PLAN -The medical history was reviewed and discussed in great detail. -Reviewed and discussed the results of diagnostics at length . -Prescribed Tussionex cough syrup to be taken half a teaspoon at bedtime as directed. The mechanism of action, benefits, and side effects were discussed with the patient. - ROAD HOGGER OPERATOR-I stop was reviewed with the patient today. -Advised on the importance of adherence to the new medication and potential side effects. -Discussed non-pharmacolo gical strategies such as using a humidifier and staying hydrated. FOLLOW-UP DISCUSSION He was advised to follow up as needed to assess the effectiveness of the new cough syrup. He was also instructed to contact the office if his symptoms worsen or if he experiences any side effects from the new medications. 01/02/2025 Medication management (ICD-10 - Z79.899) - Reviewed and updated the patient's medication list. - Educated the patient on the importance of medication adherence. - Discussed strategies to improve adherence, such as using a pill organizer or setting reminders. - Scheduled a follow-up appointment to reassess medication effectiveness and adherence. This is a 59-year-old male patient presenting today via telemed for a follow up visit for medical management of lumbar radiculopathy, allergic asthma, and insomnia. He is requesting refills of his Oxycodone, Tramadol, Zolpidem, and Albuterol HFA. He denies any potential side effects towards the medications and reports the medications are working well. The patient has been experiencing sinus congestion for the past two weeks, characterized by sinus pressure, mucus production, and a persistent cough, particularly at night. He has been using an albuterol inhaler for relief but continues to experience significant symptoms. He is requesting a prescription for a Z-Kody for symptom management. He also mentions a recent visit to the emergency room where he was diagnosed with a viral infection and advised to rest and stay hydrated. He offers no other complaint today. Denies any significant complaints of chest pain, palpitation, shortness of breath, or dizziness today. MEDICAL DECISION MAKING His symptoms suggest a possible upper respiratory infection. The differential diagnoses include acute sinusitis, and viral upper respiratory infection. For the persistent sinus symptoms, and a Z-Kody for potential bacterial sinusitis was considered appropriate. The use of an albuterol inhaler was continued to manage his respiratory symptoms. TREATMENT PLAN -The medical history and the ongoing symptoms were reviewed and discussed in great detail. -Reviewed and reconciled medications. -The refills were provided as requested. - ROAD HOGGER OPERATOR-I stop was reviewed with the patient today. -Prescribed Zithromax Z-Kody (azithromycin) to be taken as directed. The mechanism of action, benefits, and side effects were discussed with the patient. Adherence Importance: Essential to complete the course to prevent antibiotic resistance. FOLLOW-UP DISCUSSION He was advised to follow up as needed to reassess his symptoms and response to treatment. He was also instructed to seek immediate medical attention if his symptoms worsen or if he experiences any new symptoms. 01/02/2025 Chest congestion (ICD-10 - R09.89) This is a 59-year-old male patient presenting today via telemed for a follow up visit for medical management of lumbar radiculopathy, allergic asthma, and insomnia. He is requesting refills of his Oxycodone, Tramadol, Zolpidem, and Albuterol HFA. He denies any potential side effects towards the medications and reports the medications are working well. The patient has been experiencing sinus congestion for the past two weeks, characterized by sinus pressure, mucus production, and a persistent cough, particularly at night. He has been using an albuterol inhaler for relief but continues to experience significant symptoms. He is requesting a prescription for a Z-Kody for symptom management. He also mentions a recent visit to the emergency room where he was diagnosed with a viral infection and advised to rest and stay hydrated. He offers no other complaint today. Denies any significant complaints of chest pain, palpitation, shortness of breath, or dizziness today. MEDICAL DECISION MAKING His symptoms suggest a possible upper respiratory infection. The differential diagnoses include acute sinusitis, and viral upper respiratory infection. For the persistent sinus symptoms, and a Z-Kody for potential bacterial sinusitis was considered appropriate. The use of an albuterol inhaler was continued to manage his respiratory symptoms. TREATMENT PLAN -The medical history and the ongoing symptoms were reviewed and discussed in great detail. -Reviewed and reconciled medications. -The refills were provided as requested. - ROAD HOGGER OPERATOR-I stop was reviewed with the patient today. -Prescribed Zithromax Z-Kody (azithromycin) to be taken as directed. The mechanism of action, benefits, and side effects were discussed with the patient. Adherence Importance: Essential to complete the course to prevent antibiotic resistance. FOLLOW-UP DISCUSSION He was advised to follow up as needed to reassess his symptoms and response to treatment. He was also instructed to seek immediate medical attention if his symptoms worsen or if he experiences any new symptoms. 01/02/2025 Rib pain on right side (ICD-10 - R07.81) Provided an official letter regarding his disability status. Recommended ongoing communication with compensation representatives and regular reassessment. This is a 59-year-old male patient presenting today via telemed for a follow up on the back pain. This is a workers compensation follow up visit. The patient presents with complaints of worsening back pain. He reports that his back pain has been exacerbated by moving heavy items with the help of his son. He describes the pain as severe and persistent. He is requesting an order for a Toradol injection to be administered for back pain relief. He offers no other complaint today. Denies any significant complaints of chest pain, palpitation, shortness of breath, or dizziness today. MEDICAL DECISION MAKING The differential diagnoses include exacerbation of chronic back pain. For the severity of his back pain a Toradol injection for pain management was considered appropriate. The plan will involve considering non-opioid options for pain management and ensuring follow-up for his workers' compensation case. TREATMENT PLAN -The medical history was reviewed and discussed in great detail. -Workers compensation visit was done today. -Toradol injection was advised to be administered for back pain relief. -Recommended non-opioid pain management options, including NSAIDs and physical therapy. -Emphasized the importance of adherence to the treatment plan and the risks of non-adherence. -Discussed potential complications of untreated back pain, such as decreased mobility and quality of life. FOLLOW-UP DISCUSSION He was advised to follow up as needed to reassess his symptoms and response to treatment. He was also instructed to seek immediate medical attention if his symptoms worsen or if he experiences any new symptoms. 02/10/2025 Lumbar radiculopathy (ICD-10 - M54.16) The patient's lumbar radiculopathy was managed by refilling Oxycodone and Tramadol for pain control, with counseling provided regarding the risks of opioid therapy, including dependence, tolerance, constipation, and respiratory depression. The patient was advised to avoid combining opioids with alcohol, benzodiazepines, or other central nervous system depressants due to the increased risk of respiratory depression and overdose. Tizanidine was also refilled to address muscle spasms, and the patient was informed about possible side effects such as drowsiness, hypotension, and liver enzyme elevation. A Toradol (ketorolac) 30 mg intramuscular injection was ordered for acute exacerbation of back pain, with discussion of potential adverse effects including gastrointestinal bleeding and renal impairment, and the need to avoid concurrent use with other NSAIDs. The patient was encouraged to incorporate non-pharmacologi perry pain management strategies, such as physical therapy, stretching, and heat or ice application, as tolerated. This is a 59 year old male who presents today via telemed for medical management of lumbar radiculopathy, asthma, seasonal allergies, and insomnia. The patient is requesting refills of Oxycodone, Tramadol, Tizanidine, Albuterol HFA, Montelukast, and Ambien. The patient denies any side effects of the medication and states that the medications are working well. He is also requesting Toradol injection for his back pain. The patient offers no other complaint today. Denies any significant complaints of chest pain, palpitation, shortness of breath, or dizziness today. MEDICAL DECISION MAKING AND TREATMENT PLAN: The patient's chronic conditions were reviewed, and medication reconciliation was performed. The patient's request for refills of Oxycodone, Tramadol, Tizanidine, Albuterol HFA, Montelukast, and Ambien was approved, as he reported no adverse effects and good symptom control. The Prescription Monitoring Program (ROAD HOGGER OPERATOR) was reviewed to ensure safe prescribing of controlled substances. A Toradol (ketorolac) 30 mg intramuscular injection was ordered for management of chronic back pain. The patient was counseled on the risks, benefits, and potential side effects of all medications, especially controlled substances and NSAIDs. The importance of medication adherence, avoidance of polypharmacy, and monitoring for side effects or complications was emphasized. The patient was advised to follow up as scheduled or sooner if symptoms worsen or new issues arise. Refilled Oxycodone, Tramadol, Tizanidine, Albuterol HFA, Montelukast, and Ambien as requested. Ordered Toradol 30 mg IM injection for back pain. Reviewed ROAD HOGGER OPERATOR for controlled substance safety. Counseled patient on medication adherence, side effects, and risks. Advised follow-up as scheduled or sooner if symptoms change. FOLLOWUP DISCUSSION: The patient was scheduled for a follow-up appointment in one month to evaluate the effectiveness of the current treatment plan and to monitor for any side effects or complications. 10/28/2024 Closed fracture of multiple ribs of right side, initial encounter (ICD-10 - S22.41XA) Plan of Care: Monitoring and pain management, possible follow-up imaging for confirmation and assessment of healing.Potentia l Side Effects: Emphasized monitoring for potential complications such as worsening pain or respiratory issues. 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 He reports slipping and falling while descending stairs, landing on his side, and hearing a crack on the right side of his ribcage, suggestive of rib fractures. The patient requests an extension for [facility] paperwork related to this injury. He has been consulting with Dr. Meza, who has ordered MRIs for further evaluation but is seeking an earlier appointment due to ongoing pain and suspected involvement of his lower back. Patient offers no other complaint today. Denies any significant complaints of chest pain, palpitation, shortness of breath, or dizziness today. Medical Decision Making and Differential Diagnoses Rib Fracture: Diagnosed based on the reported fall and symptoms; further imaging through MRI is planned for a detailed assessment. Chronic Pain: Observed in the rib and lower back areas, potentially caused or exacerbated by the fall; considering modification of treatment to address pain management effectively. Fall on Same Level from Stairs: Contributed to the rib fracture and possibly to the exacerbation of back pain; ongoing assessment for additional injuries or complications. Treatment Plan The [facility] paperwork was completed and signed to accommodate an extension request due to his ongoing injury and discomfort. Follow-up imaging with an MRI was prioritized to assess his rib and lower back injuries more comprehensivel y. Efforts were made to expedite his MRI appointment for earlier completion. Pain management strategies were discussed, potentially adjusting current treatment to adequately address his symptoms and improve function. Continued follow-up with Dr. Meza and coordination of care for further interventions such as possible steroid injections or physical therapy were recommended based on the MRI results. Follow-Up Discussion Further evaluation and management depend on MRI findings. The patient should be monitored for any worsening pain, changes in mobility, or new symptoms that may arise. Adjustments to his care should ensure adequate pain control and address any potential complications. Ongoing communication with his care providers, including Dr. Meza and any additional specialists, will help tailor a comprehensive treatment strategy aimed at promoting recovery and return to work. 10/11/2024 Closed fracture of multiple ribs of right side, initial encounter (ICD-10 - S22.41XA) The plan emphasized pain management and cautious physical activity. The importance of deep breathing exercises to prevent atelectasis was discussed. 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 He reports that he slipped and fell while descending stairs, landing on his side and hearing a crack on the right side of his ribcage. A computed tomography (CT) scan conducted after the incident revealed nondisplaced fractures of the right posterior 11th and 12th ribs and a nondisplaced fracture of the right transverse process of L1. The patient continues to experience significant rib and back pain, which he reports as more severe than previously, affecting his ability to resume work duties. He requests a letter to extend his absence from work due to these persisting issues. Patient offers no other complaint today. Denies any significant complaints of chest pain, palpitation, shortness of breath, or dizziness today. Medical Decision Making and Differential Diagnoses: For the rib fractures, the healing process must be monitored, with consideration given to potential complications such as nonunion or delayed healing, which may require further imaging or orthopedic evaluation. For the transverse process fracture, continued assessment is needed to ensure stability and healing, and to monitor for any neurologic symptoms that could suggest additional spinal injury. Chronic pain management requires careful balance to avoid opioid dependency and assess for any underlying conditions that may exacerbate pain perception, such as anxiety or depression. Treatment Plan: The primary concern was addressing the patient's chronic pain and immobility due to the fractures. Pain management was to involve continued use of any previously prescribed pain medications, though specific medications and dosages would need to be confirmed or adjusted based on current needs and provided prescriptions. The patient was educated on the healing process and the importance of adhering to any prescribed physical therapy exercises to promote healing and prevent stiffness. The requested work absence letter was prepared, acknowledging the patient's ongoing pain and functional limitations, which prevent the patient from fulfilling job duties. This supports the need for continued medical leave until significant improvement is observed. The patient was advised to maintain regular follow-up visits to monitor the healing of the fractures, and additional imaging might be considered if symptoms persist or worsen. Efforts were made to integrate non-pharmacolo gical pain strategies, such as application of heat/cold, gentle stretching, and possibly engaging in supportive exercises or physical therapy as tolerated. Follow-up Discussion: A follow-up plan was established to reassess the patient's pain and mobility, with the goal of gauging improvement and planning for eventual return to work. The patient was informed of the importance of adhering to medical advice and the risks of complications from disregarding the recommended care plan. Monitoring for new symptoms, such as increased pain or any signs of neurological deficits, is critical for timely intervention. The patient was encouraged to contact the healthcare provider if there are any concerns or exacerbation of symptoms before the next scheduled visit. 10/16/2024 URI (upper respiratory infection) (ICD-10 - J06.9) 10/18/2024 Lower extremity edema (ICD-10 - R60.0) 10/18/2024 Lower extremity edema (ICD-10 - R60.0) 10/24/2024 Lumbar spondylosis (ICD-10 - M47.816) The patient was administered a Toradol 60 mg intramuscular injection for immediate pain relief. The patient was referred to Dr. Meza for further management of chronic back pain, which may include exploring other treatment modalities such as physical therapy, lifestyle modifications, or alternative pain management strategies. It was emphasized that adherence to the treatment plan is crucial for effective pain management and to prevent potential complications such as increased pain or decreased mobility. This is a 59 year old male who presents today via telemed for medical management of back pain. The patient is requesting Toradol injection. The patient denies any side effects of the medication and states that the medications are working well. The patient offers no other complaint today. Denies any significant complaints of chest pain, palpitation, shortness of breath, or dizziness today. MEDICAL DECISION MAKING: The primary concern is the management of chronic back pain. The patient has previously responded well to Toradol (ketorolac) injections without side effects. Differential diagnoses for back pain could include musculoskeleta l strain, degenerative disc disease, or other spinal pathologies. However, given the patient's history and response to treatment, these are less likely. TREATMENT PLAN: The patient was administered a Toradol 60 mg intramuscular injection for immediate pain relief. The patient was referred to Dr. Meza for further management of chronic back pain, which may include exploring other treatment modalities such as physical therapy, lifestyle modifications, or alternative pain management strategies. It was emphasized that adherence to the treatment plan is crucial for effective pain management and to prevent potential complications such as increased pain or decreased mobility. FOLLOWUP DISCUSSION: The patient was scheduled for a follow-up appointment in one month to evaluate the effectiveness of the current treatment plan and to monitor for any side effects or complications. 10/25/2024 Lumbar radiculopathy (ICD-10 - M54.16) 10/25/2024 Thoracic radiculopathy (ICD-10 - M54.14) 1. The patient has been complaining of severe pain affecting the thoracic area and radiating to the chest. Also, the patient has rib fractures on the right side. 2. The patient is complaining of this pain, resulting in rib fractures and also transverse process fracture of the L1 vertebra. He had CAT scan of the chest and abdomen done which are reviewed. He needs an updated MRI of the thoracic spine to rule out any fractures or any disc herniations. Referral is given to the patient. 3. The patient is advised to follow up in the office when MRI is done to review the results and discuss treatment options. 10/29/2024 Thoracic radiculopathy (ICD-10 - M54.14) 11/02/2024 Lumbar radiculopathy (ICD-10 - M54.16) 1. The patient has been complaining of radicular pain affecting both lower extremities, especially worse in the right compared to the left lower extremity. The patient states that his left lower extremity is numb since the accident. 2. MRI of the lumbar spine, which was done recently, reviewed on the PACS system. MRI does show new disc herniation at T12-L1 level. MRI is also showing [id number] re foraminal stenosis at L3-L4, L4-L5 and L5-S1 levels and [id number] at other levels. There could be a possible impingement of L1-L2, L2-L3 and L4-L5 levels. 3. As the patient is complaining of low back pain, which is in the distribution of L4 and L5 nerve roots and the patient had multiple transforaminal epidural steroid injections done in the past. His last injection was done in 2022, which lasted for more than a year with more than 80% pain relief with improvement in range of motion and activities. Now, the pain has been progressively getting worse, so I have recommended repeat transforaminal epidural steroid injection at L4-L5 and L5-S1 on both sides. 4. Risks and benefits explained to the patient. All his questions were answered. He voiced understanding and was amenable to the treatment plan. 10/29/2024 Lumbar radiculopathy (ICD-10 - M54.16) 11/05/2024 Primary insomnia (ICD-10 - F51.01) Plan of Care: Continued Ambien therapy.Medicati on: Ambien.Side effects: Possible drowsiness and dependency risk.Importance of adherence: Necessary for maintaining sleep regularity.Non-p harmacological strategies: Encourage good sleep hygiene and regular sleep schedule. This is a 59-year-old male patient presenting today via telemedicine for the management of insomnia and chronic pain. He is requesting refills of Ambien and tizanidine, reporting that both medications are working well without any side effects. Additionally, he is requesting a Toradol injection for pain management. He offers no other complaint today. Denies any significant complaints of chest pain, palpitations, shortness of breath, or dizziness today. Medical Decision-Satish kay The patient's medications for insomnia and chronic pain are effective as he reports no side effects and satisfactory pain control. Refills for Ambien and tizanidine were considered appropriate. The patient's request for a Toradol injection was reviewed and deemed a suitable adjunct for his chronic pain, taking care to avoid potential renal or gastrointestin al side effects from nonsteroidal anti-inflammat ory drugs (NSAIDs). Treatment Plan Refills were provided for Ambien and tizanidine. The prescription monitoring program ([employer] OPERATOR I-STOP) was reviewed to ensure compliance with controlled medication prescriptions. A Toradol injection was ordered to manage chronic pain. The patient was advised on the importance of adhering to prescribed treatments and was informed about potential Toradol side effects, including increased risk of bleeding, and advised to avoid co-administrat ion with other NSAIDs. Follow-Up The patient was advised to schedule a follow-up visit to assess the effectiveness of pain management strategies and to monitor for any potential side effects or changes in health status. Continual evaluation of his pain management plan, considering non-pharmacolo gical options such as physical therapy, was recommended. 11/05/2024 Rib pain on right side (ICD-10 - R07.81) Plan of Care: Continued assessment and modification of pain management strategies, including possible medication adjustments or physical therapy referrals.Import ance of Adherence: Highlighted the need to adhere to advice and treatment to prevent complications and support recovery. This is a 59-year-old male patient presenting today via telemedicine for a follow-up regarding a work-related injury sustained on September 12, 2022. 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 Recent MRI findings revealed degenerative changes and/or disc herniations at T1-2 through T12-L1 with very mild to mild foraminal stenosis at T1-2, T9-10, T10-11, and T12-L1. An MRI of the lumbar spine showed a new disc herniation at T12-L1 with vdkvajca-od-fs dillon stenosis at L3-4 and L5-S1 and ovak-wb-yggzgl te stenosis at other levels. There is nerve root impingement at L3-4, L5-S1, with possible impingement at L1-2, L2-3, and L4-5. The patient reports ongoing right-sided low back pain. He is requesting an extension of his Family and Medical Leave Act (FMLA) coverage and a letter for work documentation. He offers no other complaint today. Denies any significant complaints of chest pain, palpitations, shortness of breath, or dizziness today. Medical Decision-Satish kay The patient's chronic low back pain, stemming from multiple disc herniations and nerve impingement, requires continued monitoring and symptomatic management. Considering the severity of the spine conditions, his ongoing work displacement was warranted, with a recommendation for further evaluation by Dr. Meza. Given the potential need for surgical intervention, referral to a management specialist was considered a future option. Managing pain through a multidisciplin margareth approach, possibly including medications, physical therapy, and interventional procedures, was discussed. Treatment Plan -The MRI findings were reviewed, demonstrating significant spinal pathologies contributing to the patient's chronic pain. -FMLA was extended for an additional month to accommodate his recovery needs and prevent further injury. A Toradol injection was ordered to address his acute pain symptoms more effectively. -Advised to see Dr. Meza to reassess the condition and determine further treatment, including the possibility of surgical consultation if conservative management fails. Follow-Up The patient was advised to continue avoiding work activities that may exacerbate his condition and to adhere to follow-up appointments with Dr. Meza. Regular evaluations of his condition, with attention to any progressive neurological symptoms, were emphasized. He should return for a consultation to reassess functional status and management options, particularly if pain persists or worsens. 11/08/2024 Encounter related to worker''s compensation claim (ICD-10 - Z02.6) This is a 59-year-old male patient presenting today via telemed for his workers compensation follow up visit. The patient presents with severe pain following a work-related injury. He has been deemed 100% disabled by the pain management nurse practitioner, Dr. Meza; however, he has not received the necessary documentation to submit for workman's compensation. He has not received any pain management injections, which were canceled multiple times due to lack of approval. He is experiencing significant pain and financial stress due to the inability to work and the delay in receiving compensation. The patient and his are concerned about their ability to pay rent and are seeking urgent assistance to obtain the necessary documentation and pain management. He offers no other complaint today. Denies any significant complaints of chest pain, palpitation, shortness of breath, or dizziness today. MEDICAL DECISION-SATISH Kay Differential Diagnoses Chronic pain: Persistent pain following a work-related injury. Work-related injury: Documented injury leading to disability. Disability status: Requires documentation for workman's compensation. TREATMENT PLAN -The medical history was reviewed and discussed in great detail. -The patient was provided with the necessary documentation stating his 100% disability status for the next 6 weeks to submit for workman's compensation. -He was advised to follow up with his pain management nurse practitioner, Dr. Meza. -The Toradol 30 intramuscular injection will be administered to the patient today. The patient was advised visiting the for injection administration . -The patient was counseled on the importance of adhering to his pain management plan and the risks of non-adherence, including worsening pain and potential complications. -He was also provided with information on non-pharmacolo gical pain management strategies, such as physical therapy and the use of heat/cold packs. FOLLOW-UP DISCUSSION The patient was advised to submit the disability documentation to his employer and follow up with his pain management nurse practitioner. He was instructed to monitor his pain levels and report any changes or worsening of symptoms. 11/08/2024 Chronic pain (ICD-10 - G89.29) -He was advised to follow up with his pain management nurse practitioner, Dr. Meza. -The Toradol 30 intramuscular injection will be administered to the patient today. The patient was advised visiting the for injection administration. This is a 59-year-old male patient presenting today via telemed for his workers compensation follow up visit. The patient presents with severe pain following a work-related injury. He has been deemed 100% disabled by the pain management nurse practitioner, Dr. Meza; however, he has not received the necessary documentation to submit for workman's compensation. He has not received any pain management injections, which were canceled multiple times due to lack of approval. He is experiencing significant pain and financial stress due to the inability to work and the delay in receiving compensation. The patient and his are concerned about their ability to pay rent and are seeking urgent assistance to obtain the necessary documentation and pain management. He offers no other complaint today. Denies any significant complaints of chest pain, palpitation, shortness of breath, or dizziness today. MEDICAL DECISION-SATISH Kay Differential Diagnoses Chronic pain: Persistent pain following a work-related injury. Work-related injury: Documented injury leading to disability. Disability status: Requires documentation for workman's compensation. TREATMENT PLAN -The medical history was reviewed and discussed in great detail. -The patient was provided with the necessary documentation stating his 100% disability status for the next 6 weeks to submit for workman's compensation. -He was advised to follow up with his pain management nurse practitioner, Dr. Meza. -The Toradol 30 intramuscular injection will be administered to the patient today. The patient was advised visiting the for injection administration . -The patient was counseled on the importance of adhering to his pain management plan and the risks of non-adherence, including worsening pain and potential complications. -He was also provided with information on non-pharmacolo gical pain management strategies, such as physical therapy and the use of heat/cold packs. FOLLOW-UP DISCUSSION The patient was advised to submit the disability documentation to his employer and follow up with his pain management nurse practitioner. He was instructed to monitor his pain levels and report any changes or worsening of symptoms. 11/11/2024 Essential hypertension (ICD-10 - I10) 11/12/2024 Primary insomnia (ICD-10 - F51.01) The patient continued Ambien as it effectively managed his insomnia without reported side effects. Potential side effects such as dizziness and daytime drowsiness were discussed. Adherence to the prescribed regimen was emphasized to prevent dependency. Non-pharmacologi perry strategies, including sleep hygiene practices, were recommended to support treatment. This is a 59 year old male who presents today via telemed for medical management of insomnia, right knee pain, and lumbar radiculopathy. The patient is requesting refills of Oxycodone, Tramadol, Tizanidine, Naproxen, and Ambien.The patient denies any side effects of the medication and states that the medications are working well. The patient offers no other complaint today. Denies any significant complaints of chest pain, palpitation, shortness of breath, or dizziness today. MEDICAL DECISION MAKING: The patient's current medication regimen appears effective, with no reported side effects. The primary focus is on maintaining her current treatment plan while monitoring for any potential interactions or complications. Differential diagnoses for her symptoms were considered, but no new symptoms were reported, suggesting stability in her current conditions. TREATMENT PLAN: The medical history was reviewed and discussed in great detail. Reviewed and reconciled medications. The patient's requested medications were refilled today. I-STOP was reviewed to ensure appropriate use and monitoring of medication. The patient was advised to continue his current medication regimen as it has been effective in managing his symptoms without reported side effects. The importance of adherence to the prescribed dosages was emphasized to prevent complications such as medication overuse or dependency. FOLLOWUP DISCUSSION: The patient was scheduled for a follow-up appointment in one month to evaluate the effectiveness of the current treatment plan and to monitor for any side effects or complications. 11/15/2024 Chronic pain syndrome (ICD-10 - G89.4) His treatment plan focused on providing immediate pain relief with Toradol injection. The plan emphasized the importance of conservative pain management strategies and regular follow ups to assess the effectiveness of treatment and adjust as necessary. 11/15/2024 Lumbar radiculopathy (ICD-10 - M54.16) His treatment plan focused on providing immediate pain relief with Toradol injection. The plan emphasized the importance of conservative pain management strategies and regular follow ups to assess the effectiveness of treatment and adjust as necessary. 11/26/2024 Acute cough (ICD-10 - R05.1) Prescribed Tessalon Perles. Anticipatory guidance given regarding Cough. Clinical suspicion of pneumonia low. Patient advised to complete antibiotics as ordered and educated on supportive care with increased fluids and may use fgjd-bkk-wctognl medications to control cough. Patient advised to monitor/follow-u p for new or worsening symptoms. Parent verbalized understanding and consents to treatment plan. Patient stable throughout encounter and discharged in stable stable condition. The patient is a 59-year-old male presenting via telemedicine with complaints of a cough, sore throat, hoarse voice, watery eyes, sinus pressure, and stuffy nose for the past two days. These symptoms suggest an upper respiratory infection, possibly viral in nature, coupled with allergic rhinitis given the watery eyes and sinus symptoms. The patient is interested in obtaining Tessalon Perles for cough management. He offers no other complaints today. Denies any significant complaints of chest pain, palpitations, shortness of breath, or dizziness today. Medical Decision Making and Differential Diagnoses The immediate medical management focused on addressing both the infectious and allergic components of the patient's symptoms. The prescription of Z-Kody (azithromycin) was considered to prevent or manage a secondary bacterial infection if symptoms persist or worsen, though initially this presentation likely suggests a viral etiology. Azelastine nasal spray and Pataday eye drops addressed the allergic symptoms of congestion and ocular irritation. Differential diagnoses included bacterial sinusitis and pharyngitis; however, based on symptomology and typical course, initial conservative treatment with a focus on relief of symptoms was prioritized. Treatment Plan The patient was prescribed a Z-Kody to manage the potential secondary bacterial infection. Azelastine nasal spray was prescribed to alleviate nasal congestion due to suspected allergic rhinitis, and Pataday eye drops were recommended to control eye watering. Prescribed Tessalon Perles 200 mg three times a day for a week. Potential side effects such as gastrointestin al disturbance from the antibiotic, nasal irritation from the spray, and any ocular irritation from the eye drops were discussed comprehensivel y. Ongoing assessment of symptom progression is necessary, and if no improvement occurs, further evaluation or an in-person examination was advised to rule out other causes. Supportive care, including hydration, rest, and the use of a humidifier, was recommended to alleviate symptoms and hasten recovery. Follow-Up Discussion The patient was advised to monitor his symptoms closely and seek further consultation if symptoms persist or if any new concerning symptoms develop. Emphasizing the importance of completing the prescribed antibiotic course if initiated and continuing allergy management with azelastine and Pataday was crucial. Follow-up was recommended within a week to reassess symptoms, especially if there is no improvement or if worsening occurs. 11/26/2024 Acute URI (ICD-10 - J06.9) Prescribed Z-Kody for potential secondary bacterial infection if symptoms persist. Emphasized the importance of adherence to medication. The patient is a 59-year-old male presenting via telemedicine with complaints of a cough, sore throat, hoarse voice, watery eyes, sinus pressure, and stuffy nose for the past two days. These symptoms suggest an upper respiratory infection, possibly viral in nature, coupled with allergic rhinitis given the watery eyes and sinus symptoms. The patient is interested in obtaining Tessalon Perles for cough management. He offers no other complaints today. Denies any significant complaints of chest pain, palpitations, shortness of breath, or dizziness today. Medical Decision Making and Differential Diagnoses The immediate medical management focused on addressing both the infectious and allergic components of the patient's symptoms. The prescription of Z-Kody (azithromycin) was considered to prevent or manage a secondary bacterial infection if symptoms persist or worsen, though initially this presentation likely suggests a viral etiology. Azelastine nasal spray and Pataday eye drops addressed the allergic symptoms of congestion and ocular irritation. Differential diagnoses included bacterial sinusitis and pharyngitis; however, based on symptomology and typical course, initial conservative treatment with a focus on relief of symptoms was prioritized. Treatment Plan The patient was prescribed a Z-Kody to manage the potential secondary bacterial infection. Azelastine nasal spray was prescribed to alleviate nasal congestion due to suspected allergic rhinitis, and Pataday eye drops were recommended to control eye watering. Prescribed Tessalon Perles 200 mg three times a day for a week. Potential side effects such as gastrointestin al disturbance from the antibiotic, nasal irritation from the spray, and any ocular irritation from the eye drops were discussed comprehensivel y. Ongoing assessment of symptom progression is necessary, and if no improvement occurs, further evaluation or an in-person examination was advised to rule out other causes. Supportive care, including hydration, rest, and the use of a humidifier, was recommended to alleviate symptoms and hasten recovery. Follow-Up Discussion The patient was advised to monitor his symptoms closely and seek further consultation if symptoms persist or if any new concerning symptoms develop. Emphasizing the importance of completing the prescribed antibiotic course if initiated and continuing allergy management with azelastine and Pataday was crucial. Follow-up was recommended within a week to reassess symptoms, especially if there is no improvement or if worsening occurs. 11/26/2024 Rib pain on right side (ICD-10 - R07.81) Provided an official letter regarding his disability status. Recommended ongoing communication with compensation representatives and regular reassessment. The patient is a 59-year-old male presenting via telemedicine for medical management of chronic lumbar pain, associated with his worker's compensation status. He reports experiencing persistent lumbar pain for which Toradol injections have previously provided temporary relief, allowing him to perform daily activities with greater ease. His communicated on his behalf, endorsing the efficacy of this treatment. The patient requests a formal letter indicating he is 100% disabled, with his return to work date yet to be determined. He offers no other complaints today. Denies any significant complaints of chest pain, palpitations, shortness of breath, or dizziness today. Medical Decision Making and Differential Diagnoses The management strategy focused on alleviating the patient's chronic lumbar pain while considering the requirements imposed by his worker's compensation claim. The Toradol injection was considered due to its demonstrated effectiveness in providing temporary pain relief without severe side effects known in this patient. Other potential analgesic interventions considered included non-steroidal anti-inflammat ory drugs (NSAIDs) and physical rehabilitative approaches. Given the chronic nature of his pain, assessing for underlying musculoskeleta l or neurological causes was noted as a consideration for future evaluations. Treatment Plan A Toradol injection was ordered for acute pain relief, acknowledging its benefits in reducing inflammation and pain. The risk of gastrointestin al disturbances associated with NSAIDs was discussed, given the patient's medical need for long-term management options. An official letter was provided to confirm his 100% disability status for worker's compensation purposes, with ibiraz-ym-lshs timing to be determined based on future assessments. Recommended engagement with physical therapy and pain management specialists was suggested for long-term improvement of function and reduction in pain levels. Continuous monitoring of his response to treatments and regular follow-up appointments for comprehensive reassessment of his disability status were advised. Follow-Up Discussion The patient and his were advised on the importance of regular follow-up appointments to monitor pain levels and therapy effectiveness. Discussing potential alternative pain management strategies if necessary was encouraged as part of a multi-discipli nary approach. Emphasizing communication with his worker's compensation warehouse representative s and healthcare providers regarding changes in pain levels or functionality was essential to better tailor his care. 11/29/2024 Lumbar radiculopathy (ICD-10 - M54.16) 1. The patient has been complaining of radicular pain affecting both lower extremities, especially worse in the right compared to the left lower extremity for which he is scheduled for the transforaminal epidural steroid injection at L4-L5 and L5-S1 on both sides but no approval from the Worker's Comp until now, so we are going to resubmit for the transforaminal epidural steroid injection at L4-L5 and L5-S1 on both sides. 2. MRI of the lumbar spine, which was done recently, reviewed on the PACS system. MRI does show new disc herniation at T12-L1 level. MRI is also showing epapapqw-bm-vftg re foraminal stenosis at L3-L4, L4-L5 and L5-S1 levels and xpwy-hi-ulfgyqrb at other levels. There could be a possible impingement of L1-L2, L2-L3 and L4-L5 levels. 3. Risks and benefits explained to the patient. All his questions were answered. He voiced understanding and was amenable to the treatment plan. 12/02/2024 Upper respiratory tract infection, unspecified type (ICD-10 - J06.9) 59-year-old male presents urgent care secondary to upper respiratory symptoms over the past weekPatient reports nasal congestion, lightheaded, cough and generally not feeling wellPatient's and eplqiy-zm-uuk are sick with similar symptomsSuspect viral infectionRule out pneumoniaWill obtain rapid flu, rapid COVID, acute respiratory panelObtain CBC, BMPObtain chest x-ray Patient's white blood cell count 10.7, hemoglobin 16.2BMP unremarkableChes t x-ray negative for acute findingsPatient' s does have pneumoniaWill start patient on course of Augmentin to cover for infectionAdvised return for new or worsening symptomsPatient discharged in stable condition Level 4 12/05/2024 Primary insomnia (ICD-10 - F51.01) The patient continued with Ambien as prescribed. The dosage was maintained, and the patient was advised to adhere strictly to the prescribed regimen to avoid potential side effects such as dizziness, daytime drowsiness, and complex sleep behaviors. The importance of adherence was emphasized, as non-adherence could lead to persistent insomnia and potential withdrawal symptoms. The patient was informed about the risks of combining Ambien with other PROGRAM REP depressants. Non-pharmacologi perry strategies, such as cognitive behavioral therapy for insomnia, were recommended to complement sleep management. This is a 59 year old male who presents today via telemed for medical management of . This is a follow up visit and the patient was last seen on 12/02/2024. The patient is requesting refills of Oxycodone and Ambien. The patient denies any side effects of the medication and states that the medications are working well. He is also requesting a toradol shot for his lumbar pain. The patient offers no other complaint today. Denies any significant complaints of chest pain, palpitation, shortness of breath, or dizziness today. MEDICAL DECISION MAKING: The patient's current medication regimen appears effective, with no reported side effects. The primary focus is on maintaining the current treatment plan while monitoring for any potential interactions or complications. Differential diagnosis for symptoms were considered, but no new symptoms were reported, suggesting stability in current conditions. TREATMENT PLAN: The medical history was reviewed and discussed in great detail. Reviewed and reconciled medications. The patient's requested medications were refilled today. I-STOP was reviewed to ensure appropriate use and monitoring of medication. The patient was advised to continue his current medications as prescribed. A Toradol shot was ordered for his lumbar pain as requested. The importance of medication adherence was emphasized, along with the risks and complications of non-adherence. Potential interactions with other medications or substances were discussed, particularly concerning the controlled substances prescribed. Non-pharmacolo gical strategies such as physical therapy and cognitive-beha vioral therapy for insomnia were recommended. FOLLOWUP DISCUSSION: The patient was scheduled for a follow-up appointment in one month to evaluate the effectiveness of the current treatment plan and to monitor for any side effects or complications. 12/06/2024 Lower extremity edema (ICD-10 - R60.0) 09/16/2024 Encounter related to worker''s compensation claim (ICD-10 - Z02.6) Patient was seen through worker's compensation claim. Medications are refilled, unless otherwise stated. Patient will return to the office for followup as per workman's compensation. Patient voiced understanding and will return as directed. 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 He reports slipping and falling while descending stairs, landing on his side, and hearing a crack on the right side of his ribcage. A subsequent CAT scan revealed nondisplaced fractures of the right posterior 11th and 12th ribs, as well as a nondisplaced fracture of the right transverse process of L1. He experiences pain with deep breathing and difficulty moving his torso due to this pain. He offers no other complaint today and denies any significant complaints of chest pain, palpitations, shortness of breath, or dizziness. Medical Decision Making: Fractures of Right Ribs and L1 Transverse Process: The primary concern is effective pain management and ensuring proper healing. Given the location of the fractures, the patient is likely experiencing significant discomfort affecting respiratory function and mobility. Continued coordinated care with Dr. Meza is critical, particularly to manage pain and monitor healing progress. Referral to pain management may offer relief through potential interventions like nerve blocks or targeted injections. Treatment Plan: Patient was advised to continue follow-up with Dr. Meza. [facility] paperwork was facilitated for a planned recovery period of one month, allowing for re-evaluation as necessary for extended leave. Pain management strategies, possibly including nerve blocks, should be discussed with the specialist to aid in recovery and enhance comfort. Patient was also informed about the importance of ensuring appropriate movement within tolerable limits to prevent complications such as pneumonia from immobility. Coordination with workman's compensation for financial support during recovery was highlighted. Follow-up Discussion: The patient will remain under Dr. Meza's care and has been advised to keep all follow-up appointments. An appointment with pain management was recommended to evaluate additional pain control options. The importance of monitoring for any symptoms such as increased pain, fever, or difficulty breathing was emphasized, and urgent care was suggested if symptoms worsen. Continued communication with his employer and workman's compensation to manage leave and ensure a safe return to work is necessary. 09/16/2024 Other chronic pain (ICD-10 - G89.29) Plan of Care: Refill of tizanidinePotent ial Side Effects: Drowsiness, dizziness, dry mouth.Importance of Adherence: Critical to achieve optimal pain control and improve quality of life.Risks of Non-Adherence: Persistent pain, reduced functionality, delayed recovery.Non-Pha rmacological Strategies: Meditation, physical therapy, ergonomic adjustments. This is a 58-year-old male patient presenting today via telemed for medical management of chronic pain. He is requesting refills of his tizanidine. He denies any potential side effects towards the medications and reports the medications are working well. CT abdomen/pelvis done on 09/13 showed Scoliosis of the lower thoracic and lumbar spine. He offers no other complaint today. Denies any significant complaints of chest pain, palpitation, shortness of breath, or dizziness today. Medical Decision Making: Chronic Pain: continued management of pain with tizanidine was appropriate. Consideration of additional pain management strategies, including potential corticosteroid injections and physical therapy, was recommended. Treatment Plan: Refills for tizanidine were approved. Referred to Dr. Shipman in orthopedics for scoliosis. Follow-up Discussion: The patient was instructed to schedule follow-up visits as necessary and maintain open communication with healthcare providers to ensure adequate pain management. 09/16/2024 Scoliosis of thoracolumbar spine, unspecified scoliosis type (ICD-10 - M41.9) This is a 58-year-old male patient presenting today via telemed for medical management of chronic pain. He is requesting refills of his tizanidine. He denies any potential side effects towards the medications and reports the medications are working well. CT abdomen/pelvis done on 09/13 showed Scoliosis of the lower thoracic and lumbar spine. He offers no other complaint today. Denies any significant complaints of chest pain, palpitation, shortness of breath, or dizziness today. Medical Decision Making: Chronic Pain: continued management of pain with tizanidine was appropriate. Consideration of additional pain management strategies, including potential corticosteroid injections and physical therapy, was recommended. Treatment Plan: Refills for tizanidine were approved. Referred to Dr. Shipman in orthopedics for scoliosis. Follow-up Discussion: The patient was instructed to schedule follow-up visits as necessary and maintain open communication with healthcare providers to ensure adequate pain management. 09/18/2024 Lumbar radiculopathy (ICD-10 - M54.16) 1. The patient has been complaining of some radicular pain affecting both lower extremities, but physical exam does not reveal any straight leg raising test positive. His pain is mostly referred from the facet joint pain. 09/13/2024 Encounter related to worker's compensation claim (ICD-10 - Z02.6) Patient was seen through worker's compensation claim. Patient will return to the office for followup as per workman's compensation. Patient voiced understanding and will return as directed. MEDICAL DECISION MAKING AND TREATMENT PLAN: The patient's medical history was reviewed, and medications were reconciled. Given the patient's symptoms and the mechanism of injury, a possible rib fracture is a primary concern. The patient was referred to Urgent Care for an in-person evaluation to ensure a thorough physical examination and appropriate imaging studies. Orders for chest and rib x-rays were placed to rule out any fractures. Additionally, an order for a Toradol injection 30 mg IM was placed to manage acute pain. The patient was advised to follow up in one month or sooner if needed. - Referred to Urgent Care for evaluation. - Ordered chest and rib x-rays. - Ordered Toradol injection 30 mg IM. - Follow up in one month. 09/13/2024 Injury of abdomen, initial encounter (ICD-10 - S39.91XA) Urinalysis done today shows no evidence of hematuria. Given the bruising along patient's flank, CT of abdomen and pelvis with IV contrast only is performed today to rule out acute intra-abdominal injury. Patient is scheduled for a telemedicine visit later today to follow-up on these results. Advised to follow-up with PCP as well. If anything worsens or changes, patient advised to call or return to office or ER. Patient verbalizes understanding to plan and all questions were answered. Discharged today in stable condition. all diagnoses new to [place] 09/13/2024 Rib pain on right side (ICD-10 - R07.81) X-ray of the right ribs done today shows no obvious evidence of acute fracture. Patient is given Toradol 60 mg IM today in the office for his acute pain. Advised to modify activities as tolerable and use hikp-iox-mwedwab remedies as helpful. He is given a work note today and advised to follow-up with PCP. CT results to follow. all diagnoses new to [place] 09/13/2024 Closed fracture of multiple ribs of right side, initial encounter (ICD-10 - S22.41XA) Patient prescribed medication for pain management. Incentive spirometer sent to pharmacy. Has follow-up scheduled Monday. Advised to sleep with abdominal pillow. Follow-up to urgent care with any worsening symptoms. r 09/16/2024 Lumbar radiculopathy (ICD-10 - M54.16) 1. The patient has been complaining of some radicular pain affecting both lower extremities, but physical exam does not reveal any straight leg raising test positive. His pain is mostly referred from the facet joint pain. 09/02/2024 Lumbago with sciatica, left side (ICD-10 - M54.42) Plan of Care: Toradol 30 mg IM injection given. Tramadol prior authorization to be pursued.Potentia l Side Effects: Toradol: Pain at the injection site, bleeding, gastrointestinal upset.Importance of Follow-up: Essential to discuss long-term pain management strategies and address the underlying cause of pain.Risks of Non-Adherence: Inadequate pain control, potential for functional limitations. This is a 58-year-old male patient presenting today via telemed for medical management of low back pain. He reports that his tramadol prescription requires a [facility]. He reports generalized body pain and requests a vitamin B12 injection, which he has received in the past, usually for 6 months. He is requesting Toradol injections for pain relief. He offers no other complaint today. Denies any significant complaints of chest pain, palpitations, shortness of breath, or dizziness today. Medical Decision-Satish kay: Tino's chronic pain warrants ongoing management. Toradol injections were deemed appropriate for short-term pain relief. His request for vitamin B12 injections suggests a possible deficiency, which should be further evaluated. The need for prior authorization for tramadol will be addressed. Treatment Plan: Toradol 30 mg IM injection was ordered. A vitamin B12 injection was ordered, with a plan for monthly injections for six months. Folic acid 1 mg daily was prescribed. The need for prior authorization for tramadol will be addressed with the [facility]. Follow-up Discussion: Tino should follow up with his primary care physician and marketing information analyst, Dr. Preciado, to discuss long-term pain management strategies and assess for vitamin B12 deficiency. He should report any worsening or new symptoms. 09/13/2024 Lumbar radiculopathy (ICD-10 - M54.16) Refill oxycodone 5 mg.Monitor for side effects.Follow up in one month. MEDICAL DECISION MAKING AND TREATMENT PLAN: The patient's medical history was reviewed, and medications were reconciled. The patient was advised to refill his oxycodone 5 mg for chronic pain management. The ROAD HOGGER OPERATOR I-STOP was reviewed with the patient during the visit. The patient was advised to follow up in one month or sooner if needed. - Refilled oxycodone. - Monitor for side effects. - Follow up in one month. 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 Patient advised not to take medication, drink, drive or operate heavy machinery. Advised patient can from respiratory depression. Patient voiced understanding. MEDICAL DECISION MAKING AND TREATMENT PLAN: The patient's medical history was reviewed, and medications were reconciled. The patient was advised to refill his oxycodone 5 mg for chronic pain management. The ROAD HOGGER OPERATOR I-STOP was reviewed with the patient during the visit. The patient was advised to follow up in one month or sooner if needed. - Refilled oxycodone. - Monitor for side effects. - Follow up in one month. 09/13/2024 Accidental fall, initial encounter (ICD-10 - W19.XXXA) Referred to Urgent Care.Ordered Toradol injection 30 mg IM. MEDICAL DECISION MAKING AND TREATMENT PLAN: The patient's medical history was reviewed, and medications were reconciled. Given the patient's symptoms and the mechanism of injury, a possible rib fracture is a primary concern. The patient was referred to Urgent Care for an in-person evaluation to ensure a thorough physical examination and appropriate imaging studies. Orders for chest and rib x-rays were placed to rule out any fractures. Additionally, an order for a Toradol injection 30 mg IM was placed to manage acute pain. The patient was advised to follow up in one month or sooner if needed. - Referred to Urgent Care for evaluation. - Ordered chest and rib x-rays. - Ordered Toradol injection 30 mg IM. - Follow up in one month. 08/19/2024 Fever, unspecified fever cause (ICD-10 - R50.9) Lungs are clear and oxygen saturation stable. Start Tessalon Perles as needed for cough suppression. Patient requested Paxlovid. Discussed risk versus benefit as well as possible side effects of medicines. Toradol injection administered here in the office per patient request. Continue to hydrate well. No anti-inflammator ies for 8 hours postinjection. new to [place] 08/19/2024 COVID-19 (ICD-10 - U07.1) Patient tested positive for Covid today. Advised patient on quarantine for 5 days since symptom onset. If asymptomatic or having significant symptom improvement on day 6, then patient may exit quarantine on that day. Otherwise, they are advised to remain in quarantine and isolation until symptoms have significantly improved. Drink plenty of fluids and get some extra rest. Advised patient to take an omzj-aev-tkzuyaj medicine, such as acetaminophen (Tylenol) to reduce fever. Recommended tphi-kzj-uwzpiwp medications to help with the congestion, cough and discomfort. The risks, benefits, and alternatives for all the treatments provided today were reviewed in detail with the patient. Patient verbalized understanding and consented to treatment plan. Discharged in stable condition. new to [place] 08/26/2024 Lumbar disc disorder (ICD-10 - M51.9) The patient was advised to continue taking Tramadol as prescribed for the management of his lumbar disc disorder. The importance of adherence to the prescribed regimen was emphasized, along with the risks and complications associated with non-adherence, such as uncontrolled pain and potential worsening of the condition. The patient is a 58 year old male who presents today via telemed for medical management of lumbar disc disorder. The patient is requesting refills of Tramadol. The patient denies any side effects of the medication and states that the medications are working well. The patient offers no other complaint today. Denies any significant complaints of chest pain, palpitation, shortness of breath, or dizziness today. MEDICAL DECISION MAKING: Given the effectiveness of Tramadol in managing his symptoms and the absence of side effects, it is reasonable to continue this medication. However, it is important to consider the potential for dependence and the need for regular monitoring. Differential diagnoses for chronic lower back pain include lumbar spondylosis, spinal stenosis, and musculoskeleta l strain, but the patient's history and response to treatment support the current diagnosis. TREATMENT PLAN: The patient's requested medication was refilled today. I-STOP was reviewed to ensure appropriate use and monitoring of medication. The patient was advised to continue taking Tramadol as prescribed for the management of his lumbar disc disorder. The importance of adherence to the prescribed regimen was emphasized, along with the risks and complications associated with non-adherence, such as uncontrolled pain and potential worsening of the condition. FOLLOWUP DISCUSSION: The patient was scheduled for a follow-up appointment in one month to evaluate the effectiveness of the current treatment plan and to monitor for any side effects or complications. 08/29/2024 Other enthesopathy of right foot and ankle (ICD-10 - M77.51) 08/02/2024 Injury of left elbow, initial encounter (ICD-10 - S59.902A) X-rays of the left elbow and the lumbar spine were reviewed today and show no evidence of acute fractures or dislocations. Patient advised to use ozii-rdd-qgkaadk remedies as otherwise helpful and continue follow-up with pain management and PCP as scheduled. Modify activities as tolerable. If anything worsens or changes, patient advised to call or return to office or ER. Patient verbalizes understanding to plan and all questions were answered. Discharged today in stable condition. All diagnoses new to [place] 08/02/2024 Acute bilateral low back pain without sciatica (ICD-10 - M54.50) All diagnoses new to [place] 08/13/2024 Lumbar radiculopathy (ICD-10 - M54.16) Toradol injection administered here in the office. No anti-inflammator ies for 8 hours postinjection and subsequently follow-up with pain management and PCP. Continue other medication regimens as prescribed. If anything worsens or changes, patient advised to call or return to office or ER. Patient verbalizes understanding to plan and all questions were answered. Discharged today in stable condition. not new to [place] 08/13/2024 Other chronic pain (ICD-10 - G89.29) not new to [place] 08/15/2024 Lumbar radiculopathy (ICD-10 - M54.16) (History of Present Illness): The patient is a 58-year-old male who presents via telemedicine for an annual wellness visit and medication refills. The patient is opted for video call visit. He reports a history of low back pain for which he is prescribed oxycodone, and insomnia managed with Ambien. Additionally, he has asthma, which is under medical management. The patient mentions being up to date with routine blood work but is unsure about his colonoscopy status. He expresses concern about a problem with his blood work related to a previous appointment. He describes a history of playing basketball in his youth but now experiences discomfort in his left ankle, particularly after walking for 13 minutes daily, which he does as part of his routine. He notes the presence of a small bone or bump behind the left ankle, which causes mild pain after physical activity and at night. He manages this discomfort by resting his foot. The patient is concerned about the abnormality and seeks further evaluation. No chest pain, chest pressure or shortness of breath. No abdominal pain, nausea, vomiting, constipation or diarrhea. No fevers, sweats, chills or fatigue. No headaches or dizziness. No blurred or double vision. No sore throat, ear pain/popping. No change in appetite. No loss of taste or smell. Medical Decision Making: The medical decision-makethan g process involves addressing the patient's need for medication refills for oxycodone, Ambien, and asthma management. The patient's concern about the left ankle is noted, and an X-ray is recommended to evaluate the abnormality further. The patient is advised to monitor the ankle for worsening symptoms and to seek urgent care if necessary. The discussion also includes ensuring the patient follows up on his colonoscopy and any pending blood work issues. 08/15/2024 Encounter for annual general medical examination with abnormal findings in adult (ICD-10 - Z00.01) Treatment Plan: -Refill prescriptions for oxycodone, Ambien, and asthma medication. -Order an X-ray of the left ankle to assess the reported abnormality. -Advise the patient to monitor the ankle for any increase in pain or discomfort and to visit urgent care if symptoms worsen. Follow-up Discussion: The patient is advised to complete the left ankle X-ray at his convenience and to follow up with his healthcare provider to discuss the results. He should ensure that his colonoscopy and any outstanding blood work are completed. The patient is encouraged to maintain his current exercise routine but to be mindful of any changes in his symptoms. A follow-up appointment will be scheduled to review the X-ray findings and address any ongoing concerns. (History of Present Illness): The patient is a 58-year-old male who presents via telemedicine for an annual wellness visit and medication refills. The patient is opted for video call visit. He reports a history of low back pain for which he is prescribed oxycodone, and insomnia managed with Ambien. Additionally, he has asthma, which is under medical management. The patient mentions being up to date with routine blood work but is unsure about his colonoscopy status. He expresses concern about a problem with his blood work related to a previous appointment. He describes a history of playing basketball in his youth but now experiences discomfort in his left ankle, particularly after walking for 13 minutes daily, which he does as part of his routine. He notes the presence of a small bone or bump behind the left ankle, which causes mild pain after physical activity and at night. He manages this discomfort by resting his foot. The patient is concerned about the abnormality and seeks further evaluation. No chest pain, chest pressure or shortness of breath. No abdominal pain, nausea, vomiting, constipation or diarrhea. No fevers, sweats, chills or fatigue. No headaches or dizziness. No blurred or double vision. No sore throat, ear pain/popping. No change in appetite. No loss of taste or smell. Medical Decision Making: The medical decision-makethan g process involves addressing the patient's need for medication refills for oxycodone, Ambien, and asthma management. The patient's concern about the left ankle is noted, and an X-ray is recommended to evaluate the abnormality further. The patient is advised to monitor the ankle for worsening symptoms and to seek urgent care if necessary. The discussion also includes ensuring the patient follows up on his colonoscopy and any pending blood work issues. 09/18/2024 Closed fracture of multiple ribs of right side with routine healing, subsequent encounter (ICD-10 - S22.41XD) Patient is given Toradol 60 mg IM today in the office for his acute pain. Continue medications as previously prescribed for pain control and continue follow-up with pain management and PCP. Modify activities as tolerable. Encouraged on deep breathing exercises to prevent atelectasis and subsequent pneumonia. If anything worsens or changes, patient advised to call or return to office or ER. Patient verbalizes understanding to plan and all questions were answered. Discharged today in stable condition. all diagnoses new to [place] 09/19/2024 Encounter related to worker's compensation claim (ICD-10 - Z02.6) Patient was seen through worker''s compensation claim. Medications are refilled, unless otherwise stated. Patient will return to the office for followup as per workman''s compensation. Patient voiced understanding and will return as directed The patient is a 58-year-old male who presents via telemedicine with complaints of acute rib pain. This visit is a part of the worker's compensation case. The pain has been severe enough to cause difficulty walking. The patient has requested a Toradol injection for pain relief. The patient offers no other complaint today. Denies any significant complaints of chest pain, palpitation, shortness of breath, or dizziness today. MEDICAL DECISION MAKING: The patient's acute rib pain could be due to several potential causes, including musculoskeleta l strain, rib fracture, or pleuritic pain. Given the severity of the pain and its impact on mobility, a thorough evaluation is necessary. The patient's request for a Toradol injection is reasonable for acute pain management, but it is important to consider the potential side effects and contraindicati ons of NSAIDs. TREATMENT PLAN: Ordered a Toradol (ketorolac) injection, 60 mg intramuscularl y, as requested. Ketorolac is a nonsteroidal anti-inflammat ory drug (NSAID) that is effective for short-term management of moderate to severe pain. The patient was advised about the potential side effects of ketorolac, including gastrointestin al bleeding, renal impairment, and cardiovascular risks. FOLLOWUP DISCUSSION: The patient was scheduled for a follow-up appointment in one month to evaluate the effectiveness of the current treatment plan and to monitor for any side effects or complications. 09/19/2024 Rib pain (ICD-10 - R07.81) Ordered a Toradol (ketorolac) injection, 60 mg intramuscularly, as requested. Ketorolac is a nonsteroidal anti-inflammator y drug (NSAID) that is effective for short-term management of moderate to severe pain. The patient was advised about the potential side effects of ketorolac, including gastrointestinal bleeding, renal impairment, and cardiovascular risks. The patient is a 58-year-old male who presents via telemedicine with complaints of acute rib pain. This visit is a part of the worker's compensation case. The pain has been severe enough to cause difficulty walking. The patient has requested a Toradol injection for pain relief. The patient offers no other complaint today. Denies any significant complaints of chest pain, palpitation, shortness of breath, or dizziness today. MEDICAL DECISION MAKING: The patient's acute rib pain could be due to several potential causes, including musculoskeleta l strain, rib fracture, or pleuritic pain. Given the severity of the pain and its impact on mobility, a thorough evaluation is necessary. The patient's request for a Toradol injection is reasonable for acute pain management, but it is important to consider the potential side effects and contraindicati ons of NSAIDs. TREATMENT PLAN: Ordered a Toradol (ketorolac) injection, 60 mg intramuscularl y, as requested. Ketorolac is a nonsteroidal anti-inflammat ory drug (NSAID) that is effective for short-term management of moderate to severe pain. The patient was advised about the potential side effects of ketorolac, including gastrointestin al bleeding, renal impairment, and cardiovascular risks. FOLLOWUP DISCUSSION: The patient was scheduled for a follow-up appointment in one month to evaluate the effectiveness of the current treatment plan and to monitor for any side effects or complications. 09/19/2024 Encounter related to worker's compensation claim (ICD-10 - Z02.6) X-ray Right Hip, 2 views, AP and Lateral Right hip: Mild degenerative changes in the hip joint. Right equals left. No fractures seen. There is a small area of opacity in the proximal femur region consistent with an enchondroma as per report and images from the CAT scan taken on 09/13/2024. Janet Shipman MD. Electronically signed. Impression: I feel that his pain may be coming from the ribs but also be seems to be more painful than the rib fractures alone would suggest. I feel he may have exacerbated prior lumbar disc degeneration I am recommending an MRI of his lumbar spine and requesting Worker's Comp. approval for this. I will see him back either after the MRI or on 10/12/2023. I suggest that he start back on the gabapentin and stay away from the narcotics the best he can maybe just take it for bedtime for the next few days. Hopefully the rib fractures will get sticky soon and the pain will be less. I am recommending calcium 500 mg twice daily and vitamin D 100 iu daily. I evaluated the CT scan of the lumbar spine. It looks like he has got a benign enchondroma in the right femur. I suggested a follow-up x-ray in 6 months time, There were some other findings on the CT scan of the lumbar spine and he will discuss these with Dr. Villegas. I am recommending that he try the gabapentin for pain which she has at home. I am recommending a 6-month follow-up under his regular insurance for the right hip to make sure there is no change in the size of the calcified lesion. WC information: I feel the current symptoms are causally related to the injury at work. The complaints are consistent with the history of the injury. The history of the injury is consistent with my objective findings. Temporary impairment: 100%. 09/19/2024 Chronic pain (ICD-10 - G89.4) 09/19/2024 Closed fracture of multiple ribs of right side, initial encounter (ICD-10 - S22.41XA) 09/24/2024 Primary insomnia (ICD-10 - F51.01) 09/26/2024 Encounter related to worker's compensation claim (ICD-10 - Z02.6) Patient was seen through worker's compensation claim. Medications are refilled, unless otherwise stated. Patient will return to the office for followup as per workman's compensation. Patient voiced understanding and will return as directed. MEDICAL DECISION MAKING AND TREATMENT PLAN: The patient's medical history was reviewed, and medications were reconciled. A refill for Tramadol was provided, and the [employer] I-STOP was reviewed with the patient during the visit. A Toradol IM injection of 60 mg was ordered to manage his acute pain. The patient was referred to Dr. Johnson for further evaluation and management of his orthopedic issues. - Refilled Tramadol. - Ordered Toradol IM injection. - Referred to Dr. Johnson. 09/26/2024 Closed fracture of multiple ribs of right side, initial encounter (ICD-10 - S22.41XA) Ordered Toradol injection.Discus sed side effects.Importan ce of adherence.Risks of non-adherence. MEDICAL DECISION MAKING AND TREATMENT PLAN: The patient's medical history was reviewed, and medications were reconciled. A refill for Tramadol was provided, and the [employer] I-STOP was reviewed with the patient during the visit. A Toradol IM injection of 60 mg was ordered to manage his acute pain. The patient was referred to Dr. Johnson for further evaluation and management of his orthopedic issues. - Refilled Tramadol. - Ordered Toradol IM injection. - Referred to Dr. Johnson. 09/26/2024 Chest pain, unspecified type (ICD-10 - R07.9) Expedite Dr. Traore appointment.Radha tor symptoms closely.Follow up if worsens. MEDICAL DECISION MAKING AND TREATMENT PLAN: The patient's medical history was reviewed, and medications were reconciled. Given the ongoing symptoms of chest pain and headache, the appointment with Dr. Traore will be expedited to ensure timely evaluation and management. The patient was advised to keep the scheduled appointment with Dr. Schulte for further assessment and treatment. - Expedite appointment with Dr. Traore. - Keep appointment with Dr. Schulte. 09/26/2024 Nonintractable headache, unspecified chronicity pattern, unspecified headache type (ICD-10 - R51.9) Expedite Dr. Traore appointment.Radha ct symptoms closely.Follow up if worsens. MEDICAL DECISION MAKING AND TREATMENT PLAN: The patient's medical history was reviewed, and medications were reconciled. Given the ongoing symptoms of chest pain and headache, the appointment with Dr. Traore will be expedited to ensure timely evaluation and management. The patient was advised to keep the scheduled appointment with Dr. Schulte for further assessment and treatment. - Expedite appointment with Dr. Traore. - Keep appointment with Dr. Schulte. 10/01/2024 Essential hypertension (ICD-10 - I10) 09/30/2024 Back pain (ICD-10 - M54.9) 09/30/2024 Screen for colon cancer (ICD-10 - Z12.11) The patient will be scheduled in an accredited office setting with sedation. He/She is at a moderate risk. The risks of the procedure have been explained to the patient, including, but not limited to, bleeding, infection and perforation. Instruction sheet was given to the patient and all patient questions have been answered. 10/02/2024 Generalized abdominal pain (ICD-10 - R10.84) 10/11/2024 Primary insomnia (ICD-10 - F51.01) Medication: Refill of Ambien was provided as the patient reported good effectiveness and no side effects.Adherenc e: Importance of following the prescribed dose was emphasized to prevent the development of dependency.Non-p harmacological Strategies: Recommendations included establishing a consistent sleep schedule, minimizing screen time before bed, and avoiding stimulants like caffeine in the evening.Risks of Non-adherence: Includes persistent sleep difficulties, fatigue, and reduced quality of life. The patient is a 59-year-old male presenting for a telemedicine consultation primarily for medical management of insomnia, asthma, and lumbar radiculopathy. He requested refills for his medications, which include Ambien for insomnia, Tramadol and Oxycodone for pain management, and Albuterol HFA for asthma. He stated that these medications have been effective in managing his conditions and he denied any known side effects from their use. Additionally, the patient requested Tessalon perles to manage a cough, which is a new symptom he presented during this visit. He also inquired about receiving Toradol injections to aid in pain relief. The patient is awaiting results for a CT scan that was performed to evaluate concerns related to his stomach. He also reported a weight gain of 15-16 pounds, possibly related to limited activity due to pain. The patient expressed concern about the pain in his lower back and its progression. He indicated feeling discomfort but no other significant issues today, such as chest pain, palpitations, shortness of breath, or dizziness. Medical Decision Making and Differential Diagnoses: For insomnia, besides primary sleeplessness, conditions such as anxiety, depression, or sleep apnea were considered. Evaluation of sleep hygiene and possibly a sleep study were areas for future consideration if symptoms persist. In lumbar radiculopathy, differentials like spinal stenosis or herniated discs need exploration, potentially through imaging if no improvement is noted. The newly reported cough could be due to a mild upper respiratory infection or could have an allergenic component. In considering chronic pain management, the possibility of opioid dependency and the necessity of assessing pain against potential medication side effects were discussed. Treatment Plan: Refills were authorized for Ambien, Tramadol, Oxycodone, and Albuterol HFA as the patient reported them effective and free from concerning side effects. Benzonatate (Tessalon perles) was prescribed to address cough symptoms, with a note to monitor for resolution of symptoms and follow up if persisting. Toradol 30 mg IM was administered for immediate pain relief, particularly for the intensified back and rib pain. The patient agreed to the importance of adhering strictly to the prescribed schedule for medications, understanding that this supports the effectiveness of treatment and helps prevent complications associated with inconsistent use, such as unmanaged pain or withdrawal symptoms. He was advised about the potential side effects of Tramadol and Oxycodone, including drowsiness, constipations, and dependence, encouraging the use of non-opioid pain relief methods when possible, such as physical therapy and heat application. Follow-up Discussion: It was recommended that the patient schedule a follow-up appointment to discuss the CT scan results when available, which might influence ongoing treatment plans or indicate the need for further testing or referrals. By the next meeting, it will also be important to reassess all current symptoms, pain management strategies, and overall medication efficacy and tolerability. The patient was advised to remain observant for any new or changing symptoms and to report these promptly to optimize care and therapeutic outcomes. 10/14/2024 URI (upper respiratory infection) (ICD-10 - J06.9) -The ongoing symptoms were reviewed and discussed in great detail. -The treatment plan included refilling the Azelastine nasal spray. -The patient was prescribed a Zithromax Z-Kody for further management. The mechanism of action, benefits, and side effects were discussed with the patient. -The patient was advised to continue using his nasal sprays and to take the prescribed antibiotic as directed. -Ordered influenza, RSV, and COVID-19 swab tests along with PCR test to be done. This is a 59-year-old male patient presenting today via telemed for management of his upper respiratory symptoms. The patient presents with symptoms suggestive of a sinus infection. The patient reports experiencing nasal congestion, yellow nasal discharge, dry eyes, and a headache localized to the forehead. These symptoms have been ongoing for the past four days. The patient denies having a sore throat but mentions occasional low-grade fever. The nasal congestion and discharge have been persistent, with the discharge initially being white and now turning yellow. The patient also reports a sensation of pressure in the head and dry, watery eyes. Additionally, the patient is requesting refills of his Azelastine nasal spray. He denies any potential side effects towards the medications and reports the medications are working well. He offers no other complaint today. Denies any significant complaints of chest pain, palpitation, shortness of breath, or dizziness today. MEDICAL DECISION-SATISH Kay Given the patient's symptoms of nasal congestion, yellow nasal discharge, headache, and dry eyes, the primary diagnosis is acute sinusitis. Differential diagnoses include acute viral upper respiratory infection and allergic rhinitis. The presence of yellow nasal discharge and headache localized to the forehead supports the diagnosis of sinusitis. The patient's use of Nasacort nasal spray suggests a history of similar episodes, which may indicate recurrent sinusitis. TREATMENT PLAN -The medical history and the ongoing symptoms were reviewed and discussed in great detail. -The treatment plan included refilling the Azelastine nasal spray. -The patient was prescribed a Zithromax Z-Kody for further management. The mechanism of action, benefits, and side effects were discussed with the patient. -The patient was advised to continue using his nasal sprays and to take the prescribed antibiotic as directed. -Ordered influenza, RSV, and COVID-19 swab tests along with PCR test to be done. FOLLOW-UP DISCUSSION He was advised to follow up if his symptoms did not improve within a few days of starting the antibiotics. He was also instructed to seek medical attention if he experienced any worsening of symptoms, such as high fever, severe headache, or difficulty breathing. The importance of completing the full course of antibiotics was emphasized to prevent recurrence and resistance. 10/14/2024 Sinus pressure (ICD-10 - J34.89) This is a 59-year-old male patient presenting today via telemed for management of his upper respiratory symptoms. The patient presents with symptoms suggestive of a sinus infection. The patient reports experiencing nasal congestion, yellow nasal discharge, dry eyes, and a headache localized to the forehead. These symptoms have been ongoing for the past four days. The patient denies having a sore throat but mentions occasional low-grade fever. The nasal congestion and discharge have been persistent, with the discharge initially being white and now turning yellow. The patient also reports a sensation of pressure in the head and dry, watery eyes. Additionally, the patient is requesting refills of his Azelastine nasal spray. He denies any potential side effects towards the medications and reports the medications are working well. He offers no other complaint today. Denies any significant complaints of chest pain, palpitation, shortness of breath, or dizziness today. MEDICAL DECISION-SATISH Shen Given the patient's symptoms of nasal congestion, yellow nasal discharge, headache, and dry eyes, the primary diagnosis is acute sinusitis. Differential diagnoses include acute viral upper respiratory infection and allergic rhinitis. The presence of yellow nasal discharge and headache localized to the forehead supports the diagnosis of sinusitis. The patient's use of Nasacort nasal spray suggests a history of similar episodes, which may indicate recurrent sinusitis. TREATMENT PLAN -The medical history and the ongoing symptoms were reviewed and discussed in great detail. -The treatment plan included refilling the Azelastine nasal spray. -The patient was prescribed a Zithromax Z-Kody for further management. The mechanism of action, benefits, and side effects were discussed with the patient. -The patient was advised to continue using his nasal sprays and to take the prescribed antibiotic as directed. -Ordered influenza, RSV, and COVID-19 swab tests along with PCR test to be done. FOLLOW-UP DISCUSSION He was advised to follow up if his symptoms did not improve within a few days of starting the antibiotics. He was also instructed to seek medical attention if he experienced any worsening of symptoms, such as high fever, severe headache, or difficulty breathing. The importance of completing the full course of antibiotics was emphasized to prevent recurrence and resistance. 08/02/2024 Intertrigo (ICD-10 - L30.4) Prescribed nystatin powder bid x10 days.Discussed potential side effects.Emphasiz ed adherence importance.Expla ined non-adherence risks.Advised keeping area dry.Recommended loose clothing. MEDICAL DECISION MAKING AND TREATMENT PLAN: The patient's medical history was reviewed, and medications were reconciled. Given the presentation of a rash between the thighs, the diagnosis of intertrigo was made. Nystatin powder was prescribed to be applied to the affected area twice daily for 10 days. The potential side effects of nystatin, including skin irritation and allergic reactions, were discussed in detail with the patient. The importance of adherence to the treatment regimen was emphasized to ensure effective resolution of the rash. The risks and complications of non-adherence, such as persistent or worsening rash and potential secondary infections, were explained. The patient was advised to keep the affected area clean and dry to prevent further irritation and promote healing. Additionally, the patient was recommended to wear loose-fitting clothing to reduce friction and moisture buildup. Follow-up was recommended if the rash does not improve or if any new symptoms develop. - Prescribed nystatin powder bid x10 days. - Discussed potential side effects. - Emphasized adherence importance. - Explained non-adherence risks. - Advised keeping area dry. - Recommended loose clothing. 08/02/2024 Encounter related to worker's compensation claim (ICD-10 - Z02.6) 07/29/2024 Cough (ICD-10 - R05.9) The patient was prescribed Tussionex for cough management. Tussionex is a combination of hydrocodone, an opioid cough suppressant, and chlorpheniramine , an antihistamine. The patient was advised on the potential side effects, including drowsiness, dizziness, constipation, and the risk of dependency associated with hydrocodone. The patient is a 58-year-old male who presents via telemedicine for the management of a persistent cough. He reports that he was previously prescribed Tessalon Perles (benzonatate) for his cough, but he encountered issues with insurance coverage, making it financially burdensome. The patient is seeking an alternative medication to manage his cough effectively. Additionally, he is requesting a Toradol (ketorolac) injection for pain management. The patient offers no other complaint today. Denies any significant complaints of chest pain, palpitation, shortness of breath, or dizziness today. MEDICAL DECISION MAKING: Given the patient's history and the need for an alternative to Tessalon Perles, the decision was made to prescribe Tussionex (hydrocodone and chlorphenirami ne) for cough management. The patient's request for a Toradol injection was also considered, and a 30 mg intramuscular dose was ordered. TREATMENT PLAN: The patient was prescribed Tussionex for cough management. I-STOP was reviewed to ensure appropriate use and monitoring of medication. Tussionex is a combination of hydrocodone, an opioid cough suppressant, and chlorphenirami ne, an antihistamine. The patient was advised on the potential side effects, including drowsiness, dizziness, constipation, and the risk of dependency associated with hydrocodone. For pain management, a 30 mg intramuscular injection of Toradol (ketorolac) was ordered. The patient was informed about the potential side effects of Toradol, including gastrointestin al upset, risk of bleeding, and renal impairment. FOLLOWUP DISCUSSION: The patient was scheduled for a follow-up appointment in one month to evaluate the effectiveness of the current treatment plan and to monitor for any side effects or complications. 08/02/2024 Encounter related to worker's compensation claim (ICD-10 - Z02.6) Patient was seen through worker's compensation claim. Patient will return to the office for followup as per workman's compensation. Patient voiced understanding and will return as directed. MEDICAL DECISION MAKING AND TREATMENT PLAN: The patient's medical history was reviewed, and medications were reconciled. Given the nature of the fall and the reported symptoms, an x-ray of the lumbar spine and left elbow was ordered to assess for any fractures or other injuries. The patient was referred to Urgent Care at the [facility] for further evaluation and to complete a workers' compensation report. For ongoing pain management, an order for Toradol 60 mg IM was placed. The potential side effects of Toradol, including gastrointestin al upset, kidney function impairment, and increased risk of bleeding, were discussed with the patient. Follow-up was recommended in one week to reassess the patient's condition and adjust the treatment plan as necessary. - Ordered x-ray lumbar spine. - Ordered x-ray left elbow. - Referred to Urgent Care. - Prescribed Toradol 60 mg IM. - Follow-up in one week. 08/02/2024 Acute left-sided low back pain without sciatica (ICD-10 - M54.50) Prescribed Toradol 60 mg IM.Discussed potential side effects.Advised follow-up in one week. MEDICAL DECISION MAKING AND TREATMENT PLAN: The patient's medical history was reviewed, and medications were reconciled. Given the nature of the fall and the reported symptoms, an x-ray of the lumbar spine and left elbow was ordered to assess for any fractures or other injuries. The patient was referred to Urgent Care at the [facility] for further evaluation and to complete a workers' compensation report. For ongoing pain management, an order for Toradol 60 mg IM was placed. The potential side effects of Toradol, including gastrointestin al upset, kidney function impairment, and increased risk of bleeding, were discussed with the patient. Follow-up was recommended in one week to reassess the patient's condition and adjust the treatment plan as necessary. - Ordered x-ray lumbar spine. - Ordered x-ray left elbow. - Referred to Urgent Care. - Prescribed Toradol 60 mg IM. - Follow-up in one week. 07/02/2024 Left hand pain (ICD-10 - M79.642) Ordered x-ray of left hand.Follow up with results.Importan ce of adherence.Risks of non-adherence.Vi sit UC if worsens. MEDICAL DECISION MAKING AND TREATMENT PLAN: The patient's medical history was reviewed, and medications were reconciled. A prior authorization for oxycodone was initiated. An x-ray of the left hand was ordered to evaluate the cause of the pain. The patient was advised to follow up with the results of the x-ray. If the pain persists or worsens acutely, he was instructed to visit urgent care. - Initiated prior authorization for oxycodone. - Ordered x-ray of the left hand. - Advised follow-up with x-ray results. - Advised to visit urgent care if pain worsens. 07/02/2024 Chronic pain syndrome (ICD-10 - G89.4) Initiated prior authorization.Mo nitor pain levels.Importanc e of adherence.Risks of non-adherence.Av oid overexertion. MEDICAL DECISION MAKING AND TREATMENT PLAN: The patient's medical history was reviewed, and medications were reconciled. A prior authorization for oxycodone was initiated. An x-ray of the left hand was ordered to evaluate the cause of the pain. The patient was advised to follow up with the results of the x-ray. If the pain persists or worsens acutely, he was instructed to visit urgent care. - Initiated prior authorization for oxycodone. - Ordered x-ray of the left hand. - Advised follow-up with x-ray results. - Advised to visit urgent care if pain worsens. 07/02/2024 Left hand pain (ICD-10 - M79.642) 07/05/2024 Encounter to discuss test results (ICD-10 - Z71.89) Patient's x-ray results were discussed in great detail. The patient is a 58 year old male who presents today via telemed to discuss x-ray results. His X-ray of left hand done on 07/02/2024 showed hypothenar- like foreign bodies. Otherwise, unremarkable. The patient recalls a childhood incident involving metal, which may explain the presence of foreign bodies. He reports experiencing significant pain in the area, particularly with movement. The patient offers no other complaint today. Denies any significant complaints of chest pain, palpitation, shortness of breath, or dizziness today. MEDICAL DECISION MAKING: The presence of foreign bodies in the hand, as indicated by the X-ray, suggests a retained metallic object from a previous injury. Differential diagnoses could include chronic granuloma formation or infection due to the foreign body. The pain experienced by the patient is likely secondary to the foreign body, but other causes such as arthritis or tendinitis should be considered if symptoms persist after foreign body removal. TREATMENT PLAN: The patient was referred to a hand specialist for further evaluation and management of the foreign body in the left hand. The specialist will assess the need for surgical removal of the foreign body and address the associated pain. The patient was advised to monitor for signs of infection, such as increased redness, swelling, or fever, and to seek immediate medical attention if these occur. FOLLOWUP DISCUSSION: The patient was instructed to follow up with the hand specialist as scheduled. It was emphasized that adherence to the specialist's recommendation s is crucial to prevent complications such as infection or chronic pain. 07/05/2024 Left hand pain (ICD-10 - M79.642) The patient was referred to a hand specialist for further evaluation and management of the foreign body in the left hand.The importance of adherence to the referral was emphasized to prevent potential complications such as infection or impaired hand function.Non-pha rmacological strategies included avoiding activities that exacerbate pain and using protective measures to prevent further injury. The patient is a 58 year old male who presents today via telemed to discuss x-ray results. His X-ray of left hand done on 07/02/2024 showed hypothenar- like foreign bodies. Otherwise, unremarkable. The patient recalls a childhood incident involving metal, which may explain the presence of foreign bodies. He reports experiencing significant pain in the area, particularly with movement. The patient offers no other complaint today. Denies any significant complaints of chest pain, palpitation, shortness of breath, or dizziness today. MEDICAL DECISION MAKING: The presence of foreign bodies in the hand, as indicated by the X-ray, suggests a retained metallic object from a previous injury. Differential diagnoses could include chronic granuloma formation or infection due to the foreign body. The pain experienced by the patient is likely secondary to the foreign body, but other causes such as arthritis or tendinitis should be considered if symptoms persist after foreign body removal. TREATMENT PLAN: The patient was referred to a hand specialist for further evaluation and management of the foreign body in the left hand. The specialist will assess the need for surgical removal of the foreign body and address the associated pain. The patient was advised to monitor for signs of infection, such as increased redness, swelling, or fever, and to seek immediate medical attention if these occur. FOLLOWUP DISCUSSION: The patient was instructed to follow up with the hand specialist as scheduled. It was emphasized that adherence to the specialist's recommendation s is crucial to prevent complications such as infection or chronic pain. 07/15/2024 Lumbar disc disorder (ICD-10 - M51.9) The patient was advised to continue with Oxycodone for pain management, with a refill provided for 30 days. The benefits of Oxycodone include effective pain relief, but potential side effects such as constipation, drowsiness, and risk of dependence were discussed. For acute pain management, a Toradol 30 mg IM injection was considered, with the patient informed about potential side effects such as gastrointestinal bleeding and renal impairment. The patient is a 58-year-old male presenting via telemedicine for the management of lumbar disc disorder. He reports that his current medication regimen, which includes Oxycodone, is effective in managing his symptoms without any side effects. He is requesting a 30-day refill of Oxycodone. Additionally, the patient is requesting a Toradol (ketorolac) 30 mg intramuscular injection for acute low back pain relief. He denies experiencing any significant complaints such as chest pain, palpitations, shortness of breath, or dizziness. MEDICAL DECISION MAKING: The primary diagnosis is lumbar disc disorder, which is contributing to the patient's chronic low back pain. The differential diagnoses considered include lumbar radiculopathy and degenerative disc disease. The patient's request for Oxycodone and Toradol suggests a need for both chronic and acute pain management strategies. Given the patient's denial of side effects and the effectiveness of the current regimen, continuation of Oxycodone may be appropriate, but with caution due to the potential for opioid dependence and abuse. TREATMENT PLAN: The patient's requested medication was refilled today. I-STOP was reviewed to ensure appropriate use and monitoring of medication. The patient was advised to continue with Oxycodone for pain management, with a refill provided for 30 days. The benefits of Oxycodone include effective pain relief, but potential side effects such as constipation, drowsiness, and risk of dependence were discussed. For acute pain management, a Toradol 30 mg IM injection was considered, with the patient informed about potential side effects such as gastrointestin al bleeding and renal impairment. FOLLOWUP DISCUSSION: The patient was scheduled for a follow-up appointment in one month to evaluate the effectiveness of the current treatment plan and to monitor for any side effects or complications. 07/26/2024 Primary insomnia (ICD-10 - F51.01) Refilled Zolpidem.Discuss ed potential side effects. MEDICAL DECISION MAKING AND TREATMENT PLAN: The patient's medical history was reviewed, and his medications were reconciled. The patient was prescribed Tessalon Perles 100 mg to be taken three times daily for 7 days to manage his cough. The potential side effects of Tessalon Perles, including drowsiness, dizziness, and gastrointestin al upset, were discussed in detail. Given that the patient's cough is likely due to his allergic asthma, Trelegy Ellipta inhaler was also prescribed to be used once daily. The potential side effects of Trelegy Ellipta, including oral thrush, hoarseness, and increased risk of pneumonia, were discussed in detail. The requested refills for Tramadol, Montelukast, and Zolpidem were processed. The ROAD HOGGER OPERATOR I-STOP was reviewed with the patient during the visit. The patient was advised to follow up in one month or sooner if any need arises. - Prescribed Tessalon Perles for cough. - Prescribed Trelegy Ellipta inhaler. - Processed refills for Tramadol, Montelukast, and Zolpidem. - Reviewed ROAD HOGGER OPERATOR I-STOP. - Follow up in one month. 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 Patient made aware of drug addictive potential. Patient advised not to take medication, drink, drive or operate heavy machinery. Advised patient can from respiratory depression. Patient voiced understanding. The patient is a 58 year old male who presents today via telemed for medical management of lumbar pain. The patient is requesting refills of Oxycodone. The patient denies any side effects of the medication and states that the medications are working well. Additionally, the patient specifically requests Toradol injection for his back pain. The patient offers no other complaint today. Denies any significant complaints of chest pain, palpitation, shortness of breath, or dizziness today. MEDICAL DECISION MAKING: The patient's effective response to Oxycodone suggests that the pain may have a significant nociceptive component. However, the long-term use of opioids necessitates careful consideration of potential side effects, dependency, and the need for ongoing monitoring. TREATMENT PLAN: The patient's requested medication was refilled today. I-STOP was reviewed to ensure appropriate use and monitoring of medication. The patient was advised to continue his current Oxycodone regimen, given its effectiveness and lack of side effects. The patient was also scheduled to receive a Toradol shot for his back pain. The importance of adherence to the prescribed medication regimen was emphasized, along with the risks and complications associated with non-adherence. FOLLOWUP DISCUSSION: The patient was advised to schedule a follow-up appointment in 1 month to reassess the effectiveness of the current treatment regimen and to monitor for any potential side effects. 06/03/2024 Lumbar disc disorder (ICD-10 - M51.9) The patient was advised to continue Oxycodone as prescribed. The Toradol injection was scheduled for back pain management.The importance of adherence to the prescribed dosage was emphasized.Risks of non-adherence, including unmanaged pain and potential withdrawal symptoms, were discussed.Non-ph armacological strategies, such as physical therapy and cognitive-behavi oral therapy, were recommended. The patient is a 58 year old male who presents today via telemed for medical management of lumbar pain. The patient is requesting refills of Oxycodone. The patient denies any side effects of the medication and states that the medications are working well. Additionally, the patient specifically requests Toradol injection for his back pain. The patient offers no other complaint today. Denies any significant complaints of chest pain, palpitation, shortness of breath, or dizziness today. MEDICAL DECISION MAKING: The patient's effective response to Oxycodone suggests that the pain may have a significant nociceptive component. However, the long-term use of opioids necessitates careful consideration of potential side effects, dependency, and the need for ongoing monitoring. TREATMENT PLAN: The patient's requested medication was refilled today. I-STOP was reviewed to ensure appropriate use and monitoring of medication. The patient was advised to continue his current Oxycodone regimen, given its effectiveness and lack of side effects. The patient was also scheduled to receive a Toradol shot for his back pain. The importance of adherence to the prescribed medication regimen was emphasized, along with the risks and complications associated with non-adherence. FOLLOWUP DISCUSSION: The patient was advised to schedule a follow-up appointment in 1 month to reassess the effectiveness of the current treatment regimen and to monitor for any potential side effects. 06/17/2024 Other chronic pain (ICD-10 - G89.29) Continue with current medication as prescribed. The importance of adherence to the prescribed regimen was emphasized, along with the risks and complications of non-adherence. Potential interactions with other medications or substances were reviewed. The patient is a 58 year old male who presents today via telemed for medical management of lumbar disc disorder, chronic pain, and primary insomnia. The patient is requesting refills of Tramadol, Tizanidine, Ambien, and Oxycodone. The patient denies any side effects of the medication and states that the medications are working well. The patient offers no other complaint today. Denies any significant complaints of chest pain, palpitation, shortness of breath, or dizziness today. MEDICAL DECISION MAKING: The patient's lumbar disc disorder and chronic pain are currently managed with Tramadol and Oxycodone, while Tizanidine is used for muscle spasms. Ambien is prescribed for primary insomnia. Given the patient's report of effective symptom management and absence of side effects, continuation of the current medication regimen is reasonable. TREATMENT PLAN: The patient's requested medications were refilled today. I-STOP was reviewed to ensure appropriate use and monitoring of medication. The patient's current medications were continued as they reported effective symptom management without side effects. The importance of adherence to the prescribed regimen was emphasized, along with the risks and complications of non-adherence. Potential interactions with other medications or substances were reviewed. FOLLOWUP DISCUSSION: The patient was advised to schedule a follow-up appointment in 1 month to reassess the effectiveness of the current treatment regimen and to monitor for any potential side effects. 06/17/2024 Lumbar disc disorder (ICD-10 - M51.9) Continued Tramadol and Oxycodone for pain management.Empha sized the importance of adherence to the prescribed regimen.Discusse d the risks of non-adherence, including potential worsening of pain and functional impairment.Recom mended physical therapy to improve mobility and strength.Reviewe d potential interactions with other medications. The patient is a 58 year old male who presents today via telemed for medical management of lumbar disc disorder, chronic pain, and primary insomnia. The patient is requesting refills of Tramadol, Tizanidine, Ambien, and Oxycodone. The patient denies any side effects of the medication and states that the medications are working well. The patient offers no other complaint today. Denies any significant complaints of chest pain, palpitation, shortness of breath, or dizziness today. MEDICAL DECISION MAKING: The patient's lumbar disc disorder and chronic pain are currently managed with Tramadol and Oxycodone, while Tizanidine is used for muscle spasms. Ambien is prescribed for primary insomnia. Given the patient's report of effective symptom management and absence of side effects, continuation of the current medication regimen is reasonable. TREATMENT PLAN: The patient's requested medications were refilled today. I-STOP was reviewed to ensure appropriate use and monitoring of medication. The patient's current medications were continued as they reported effective symptom management without side effects. The importance of adherence to the prescribed regimen was emphasized, along with the risks and complications of non-adherence. Potential interactions with other medications or substances were reviewed. FOLLOWUP DISCUSSION: The patient was advised to schedule a follow-up appointment in 1 month to reassess the effectiveness of the current treatment regimen and to monitor for any potential side effects. 06/20/2024 Screen for colon cancer (ICD-10 - Z12.11) The patient will be scheduled in an accredited office setting with sedation. He/She is at a moderate risk. The risks of the procedure have been explained to the patient, including, but not limited to, bleeding, infection and perforation. Instruction sheet was given to the patient and all patient questions have been answered. 06/25/2024 Lumbar disc disorder (ICD-10 - M51.9) This is a 58-year-old male patient presenting today via telemed for medical management of back pain. The history was obtained through his . The patient complains of severe back pain radiating to the neck and head. He reports hearing noises and experiencing significant discomfort. He offers no other complaint today. Denies any significant complaints of chest pain, palpitation, shortness of breath, or dizziness today. MEDICAL DECISION-SATISH Kay His symptoms suggest chronic back pain, which may be related to musculoskeleta l issues or other systemic conditions. A Toradol shot was recommended for immediate pain relief, and a referral to urgent care was made for further evaluation. TREATMENT PLAN -The medical history was reviewed and discussed in great detail. -He was advised to go to urgent care for a Toradol shot to manage his back pain. -He was referred to urgent care for further evaluation to determine the underlying cause of his symptoms. -The importance of adherence to the treatment plan was emphasized to ensure effective pain management and to avoid complications. FOLLOW-UP DISCUSSION He was scheduled for a follow-up appointment to review the results of his evaluation at urgent care. 06/25/2024 Back pain (ICD-10 - M54.9) -He was advised to go to urgent care for a Toradol shot to manage his back pain. -He was referred to urgent care for further evaluation to determine the underlying cause of his symptoms. This is a 58-year-old male patient presenting today via telemed for medical management of back pain. The history was obtained through his . The patient complains of severe back pain radiating to the neck and head. He reports hearing noises and experiencing significant discomfort. He offers no other complaint today. Denies any significant complaints of chest pain, palpitation, shortness of breath, or dizziness today. MEDICAL DECISION-SATISH Kay His symptoms suggest chronic back pain, which may be related to musculoskeleta l issues or other systemic conditions. A Toradol shot was recommended for immediate pain relief, and a referral to urgent care was made for further evaluation. TREATMENT PLAN -The medical history was reviewed and discussed in great detail. -He was advised to go to urgent care for a Toradol shot to manage his back pain. -He was referred to urgent care for further evaluation to determine the underlying cause of his symptoms. -The importance of adherence to the treatment plan was emphasized to ensure effective pain management and to avoid complications. FOLLOW-UP DISCUSSION He was scheduled for a follow-up appointment to review the results of his evaluation at urgent care. 07/01/2024 Lumbar disc disorder (ICD-10 - M51.9) The patient was prescribed Oxycodone for pain management. The dosage was maintained as per the previous prescription.Pot ential side effects of Oxycodone include drowsiness, constipation, nausea, and risk of dependency. The patient was advised to monitor for these effects.Emphasiz ed the importance of adherence to the medication regimen to manage pain effectively and prevent exacerbation.Ris ks of non-adherence include unmanaged pain and potential worsening of the lumbar disc condition. The patient is a 58 year old male who presents today via telemed for medical management of lumbar disc disorder and back pain. The patient is requesting refills of Oxycodone. The patient denies any side effects of the medication and states that the medications are working well. The patient also requested a Toradol injection for additional pain management. The patient offers no other complaint today. Denies any significant complaints of chest pain, palpitation, shortness of breath, or dizziness today. MEDICAL DECISION MAKING: The medical decision-makin g process for this patient involved evaluating the effectiveness and safety of the current pain management regimen for lumbar disc disorder and chronic back pain. The patient reported that Oxycodone was effective without side effects, warranting a continuation of the current dosage. The decision to prescribe a Toradol injection was made to provide additional acute pain relief, considering the patient's ongoing discomfort. TREATMENT PLAN: The patient's requested medications were refilled today. I-STOP was reviewed to ensure appropriate use and monitoring of medication. The patient was advised to continue Oxycodone for pain management. The dosage was maintained as previously prescribed due to its effectiveness and lack of reported side effects. Also, ordered a Toradol injection for acute pain relief. The patient was advised on the potential side effects of Toradol, including gastrointestin al upset and renal effects. FOLLOWUP DISCUSSION: The patient was advised to follow up if symptoms persist or worsen. A follow-up appointment was recommended in 4 weeks to reassess pain management. 07/01/2024 Back pain (ICD-10 - M54.9) Ordered a Toradol injection for acute pain relief.Discussed potential side effects of Toradol, including gastrointestinal upset, dizziness, and potential renal effects with prolonged use.Reinforced the importance of adhering to prescribed treatments to manage pain and prevent complications.No n-pharmacologica l strategies such as heat application and ergonomic adjustments were suggested. The patient is a 58 year old male who presents today via telemed for medical management of lumbar disc disorder and back pain. The patient is requesting refills of Oxycodone. The patient denies any side effects of the medication and states that the medications are working well. The patient also requested a Toradol injection for additional pain management. The patient offers no other complaint today. Denies any significant complaints of chest pain, palpitation, shortness of breath, or dizziness today. MEDICAL DECISION MAKING: The medical decision-makin g process for this patient involved evaluating the effectiveness and safety of the current pain management regimen for lumbar disc disorder and chronic back pain. The patient reported that Oxycodone was effective without side effects, warranting a continuation of the current dosage. The decision to prescribe a Toradol injection was made to provide additional acute pain relief, considering the patient's ongoing discomfort. TREATMENT PLAN: The patient's requested medications were refilled today. I-STOP was reviewed to ensure appropriate use and monitoring of medication. The patient was advised to continue Oxycodone for pain management. The dosage was maintained as previously prescribed due to its effectiveness and lack of reported side effects. Also, ordered a Toradol injection for acute pain relief. The patient was advised on the potential side effects of Toradol, including gastrointestin al upset and renal effects. FOLLOWUP DISCUSSION: The patient was advised to follow up if symptoms persist or worsen. A follow-up appointment was recommended in 4 weeks to reassess pain management. 06/17/2024 Primary insomnia (ICD-10 - F51.01) Continued Ambien for sleep management.Empha sized the importance of adherence to the prescribed regimen.Discusse d the risks of non-adherence, including potential worsening of insomnia and daytime fatigue.Recommen ded cognitive-behavi oral therapy for insomnia.Reviewe d potential interactions with other medications. The patient is a 58 year old male who presents today via telemed for medical management of lumbar disc disorder, chronic pain, and primary insomnia. The patient is requesting refills of Tramadol, Tizanidine, Ambien, and Oxycodone. The patient denies any side effects of the medication and states that the medications are working well. The patient offers no other complaint today. Denies any significant complaints of chest pain, palpitation, shortness of breath, or dizziness today. MEDICAL DECISION MAKING: The patient's lumbar disc disorder and chronic pain are currently managed with Tramadol and Oxycodone, while Tizanidine is used for muscle spasms. Ambien is prescribed for primary insomnia. Given the patient's report of effective symptom management and absence of side effects, continuation of the current medication regimen is reasonable. TREATMENT PLAN: The patient's requested medications were refilled today. I-STOP was reviewed to ensure appropriate use and monitoring of medication. The patient's current medications were continued as they reported effective symptom management without side effects. The importance of adherence to the prescribed regimen was emphasized, along with the risks and complications of non-adherence. Potential interactions with other medications or substances were reviewed. FOLLOWUP DISCUSSION: The patient was advised to schedule a follow-up appointment in 1 month to reassess the effectiveness of the current treatment regimen and to monitor for any potential side effects. 07/26/2024 Lumbar disc disorder (ICD-10 - M51.9) Refilled Tramadol.Discuss ed potential side effects. MEDICAL DECISION MAKING AND TREATMENT PLAN: The patient's medical history was reviewed, and his medications were reconciled. The patient was prescribed Tessalon Perles 100 mg to be taken three times daily for 7 days to manage his cough. The potential side effects of Tessalon Perles, including drowsiness, dizziness, and gastrointestin al upset, were discussed in detail. Given that the patient's cough is likely due to his allergic asthma, Trelegy Ellipta inhaler was also prescribed to be used once daily. The potential side effects of Trelegy Ellipta, including oral thrush, hoarseness, and increased risk of pneumonia, were discussed in detail. The requested refills for Tramadol, Montelukast, and Zolpidem were processed. The RO[employer] HOGGER OPERATOR I-STOP was reviewed with the patient during the visit. The patient was advised to follow up in one month or sooner if any need arises. - Prescribed Tessalon Perles for cough. - Prescribed Trelegy Ellipta inhaler. - Processed refills for Tramadol, Montelukast, and Zolpidem. - Reviewed ROAD HOGGER OPERATOR I-STOP. - Follow up in one month. 07/26/2024 Seasonal allergies (ICD-10 - J30.2) Refilled Montelukast.Pres cribed Trelegy Ellipta inhaler. MEDICAL DECISION MAKING AND TREATMENT PLAN: The patient's medical history was reviewed, and his medications were reconciled. The patient was prescribed Tessalon Perles 100 mg to be taken three times daily for 7 days to manage his cough. The potential side effects of Tessalon Perles, including drowsiness, dizziness, and gastrointestin al upset, were discussed in detail. Given that the patient's cough is likely due to his allergic asthma, Trelegy Ellipta inhaler was also prescribed to be used once daily. The potential side effects of Trelegy Ellipta, including oral thrush, hoarseness, and increased risk of pneumonia, were discussed in detail. The requested refills for Tramadol, Montelukast, and Zolpidem were processed. The RO[employer] HOGGER OPERATOR I-STOP was reviewed with the patient during the visit. The patient was advised to follow up in one month or sooner if any need arises. - Prescribed Tessalon Perles for cough. - Prescribed Trelegy Ellipta inhaler. - Processed refills for Tramadol, Montelukast, and Zolpidem. - Reviewed ROAD HOGGER OPERATOR I-STOP. - Follow up in one month. 08/02/2024 Injury due to fall, initial encounter (ICD-10 - W19.XXXA) Ordered x-ray lumbar spine.Ordered x-ray left elbow.Referred to Urgent Care. MEDICAL DECISION MAKING AND TREATMENT PLAN: The patient's medical history was reviewed, and medications were reconciled. Given the nature of the fall and the reported symptoms, an x-ray of the lumbar spine and left elbow was ordered to assess for any fractures or other injuries. The patient was referred to Urgent Care at the [facility] for further evaluation and to complete a workers' compensation report. For ongoing pain management, an order for Toradol 60 mg IM was placed. The potential side effects of Toradol, including gastrointestin al upset, kidney function impairment, and increased risk of bleeding, were discussed with the patient. Follow-up was recommended in one week to reassess the patient's condition and adjust the treatment plan as necessary. - Ordered x-ray lumbar spine. - Ordered x-ray left elbow. - Referred to Urgent Care. - Prescribed Toradol 60 mg IM. - Follow-up in one week. 08/02/2024 Injury due to fall, initial encounter (ICD-10 - W19.XXXA) 10/14/2024 Dry eyes (ICD-10 - H04.123) This is a 59-year-old male patient presenting today via telemed for management of his upper respiratory symptoms. The patient presents with symptoms suggestive of a sinus infection. The patient reports experiencing nasal congestion, yellow nasal discharge, dry eyes, and a headache localized to the forehead. These symptoms have been ongoing for the past four days. The patient denies having a sore throat but mentions occasional low-grade fever. The nasal congestion and discharge have been persistent, with the discharge initially being white and now turning yellow. The patient also reports a sensation of pressure in the head and dry, watery eyes. Additionally, the patient is requesting refills of his Azelastine nasal spray. He denies any potential side effects towards the medications and reports the medications are working well. He offers no other complaint today. Denies any significant complaints of chest pain, palpitation, shortness of breath, or dizziness today. MEDICAL DECISION-SATISH Kay Given the patient's symptoms of nasal congestion, yellow nasal discharge, headache, and dry eyes, the primary diagnosis is acute sinusitis. Differential diagnoses include acute viral upper respiratory infection and allergic rhinitis. The presence of yellow nasal discharge and headache localized to the forehead supports the diagnosis of sinusitis. The patient's use of Nasacort nasal spray suggests a history of similar episodes, which may indicate recurrent sinusitis. TREATMENT PLAN -The medical history and the ongoing symptoms were reviewed and discussed in great detail. -The treatment plan included refilling the Azelastine nasal spray. -The patient was prescribed a Zithromax Z-Kody for further management. The mechanism of action, benefits, and side effects were discussed with the patient. -The patient was advised to continue using his nasal sprays and to take the prescribed antibiotic as directed. -Ordered influenza, RSV, and COVID-19 swab tests along with PCR test to be done. FOLLOW-UP DISCUSSION He was advised to follow up if his symptoms did not improve within a few days of starting the antibiotics. He was also instructed to seek medical attention if he experienced any worsening of symptoms, such as high fever, severe headache, or difficulty breathing. The importance of completing the full course of antibiotics was emphasized to prevent recurrence and resistance. 10/11/2024 Lumbar disc disorder (ICD-10 - M51.9) Medications: Refills for Tramadol and Oxycodone were issued. The usage and potential for abuse were discussed, including the common side effects of drowsiness, nausea, and dependency.Adher ence: Stressed the importance of medication adherence to manage pain and improve function.Non-pha rmacological Strategies: Considerations include physical therapy and exercises to strengthen the back and core muscles.Risks of Non-adherence: Could lead to unrelieved pain, worsening radiculopathy, or increased risk of opioid dependency. The patient is a 59-year-old male presenting for a telemedicine consultation primarily for medical management of insomnia, asthma, and lumbar radiculopathy. He requested refills for his medications, which include Ambien for insomnia, Tramadol and Oxycodone for pain management, and Albuterol HFA for asthma. He stated that these medications have been effective in managing his conditions and he denied any known side effects from their use. Additionally, the patient requested Tessalon perles to manage a cough, which is a new symptom he presented during this visit. He also inquired about receiving Toradol injections to aid in pain relief. The patient is awaiting results for a CT scan that was performed to evaluate concerns related to his stomach. He also reported a weight gain of 15-16 pounds, possibly related to limited activity due to pain. The patient expressed concern about the pain in his lower back and its progression. He indicated feeling discomfort but no other significant issues today, such as chest pain, palpitations, shortness of breath, or dizziness. Medical Decision Making and Differential Diagnoses: For insomnia, besides primary sleeplessness, conditions such as anxiety, depression, or sleep apnea were considered. Evaluation of sleep hygiene and possibly a sleep study were areas for future consideration if symptoms persist. In lumbar radiculopathy, differentials like spinal stenosis or herniated discs need exploration, potentially through imaging if no improvement is noted. The newly reported cough could be due to a mild upper respiratory infection or could have an allergenic component. In considering chronic pain management, the possibility of opioid dependency and the necessity of assessing pain against potential medication side effects were discussed. Treatment Plan: Refills were authorized for Ambien, Tramadol, Oxycodone, and Albuterol HFA as the patient reported them effective and free from concerning side effects. Benzonatate (Tessalon perles) was prescribed to address cough symptoms, with a note to monitor for resolution of symptoms and follow up if persisting. Toradol 30 mg IM was administered for immediate pain relief, particularly for the intensified back and rib pain. The patient agreed to the importance of adhering strictly to the prescribed schedule for medications, understanding that this supports the effectiveness of treatment and helps prevent complications associated with inconsistent use, such as unmanaged pain or withdrawal symptoms. He was advised about the potential side effects of Tramadol and Oxycodone, including drowsiness, constipations, and dependence, encouraging the use of non-opioid pain relief methods when possible, such as physical therapy and heat application. Follow-up Discussion: It was recommended that the patient schedule a follow-up appointment to discuss the CT scan results when available, which might influence ongoing treatment plans or indicate the need for further testing or referrals. By the next meeting, it will also be important to reassess all current symptoms, pain management strategies, and overall medication efficacy and tolerability. The patient was advised to remain observant for any new or changing symptoms and to report these promptly to optimize care and therapeutic outcomes. 10/01/2024 Obesity (BMI 30.0-34.9) (ICD-10 - E66.9) 09/26/2024 Lumbar disc disorder (ICD-10 - M51.9) Refilled Tramadol.Discuss ed side effects.Importan ce of adherence.Risks of non-adherence. MEDICAL DECISION MAKING AND TREATMENT PLAN: The patient's medical history was reviewed, and medications were reconciled. A refill for Tramadol was provided, and the ROAD HOGGER OPERATOR I-STOP was reviewed with the patient during the visit. A Toradol IM injection of 60 mg was ordered to manage his acute pain. The patient was referred to Dr. Johnson for further evaluation and management of his orthopedic issues. - Refilled Tramadol. - Ordered Toradol IM injection. - Referred to Dr. Johnson. 09/19/2024 Lumbar disc disorder (ICD-10 - M51.9) 08/15/2024 Primary insomnia (ICD-10 - F51.01) (History of Present Illness): The patient is a 58-year-old male who presents via telemedicine for an annual wellness visit and medication refills. The patient is opted for video call visit. He reports a history of low back pain for which he is prescribed oxycodone, and insomnia managed with Ambien. Additionally, he has asthma, which is under medical management. The patient mentions being up to date with routine blood work but is unsure about his colonoscopy status. He expresses concern about a problem with his blood work related to a previous appointment. He describes a history of playing basketball in his youth but now experiences discomfort in his left ankle, particularly after walking for 13 minutes daily, which he does as part of his routine. He notes the presence of a small bone or bump behind the left ankle, which causes mild pain after physical activity and at night. He manages this discomfort by resting his foot. The patient is concerned about the abnormality and seeks further evaluation. No chest pain, chest pressure or shortness of breath. No abdominal pain, nausea, vomiting, constipation or diarrhea. No fevers, sweats, chills or fatigue. No headaches or dizziness. No blurred or double vision. No sore throat, ear pain/popping. No change in appetite. No loss of taste or smell. Medical Decision Making: The medical decision-makethan g process involves addressing the patient's need for medication refills for oxycodone, Ambien, and asthma management. The patient's concern about the left ankle is noted, and an X-ray is recommended to evaluate the abnormality further. The patient is advised to monitor the ankle for worsening symptoms and to seek urgent care if necessary. The discussion also includes ensuring the patient follows up on his colonoscopy and any pending blood work issues. 08/29/2024 Valgus deformity, not elsewhere classified, right ankle (ICD-10 - M21.071) 09/13/2024 Acute pain due to trauma (ICD-10 - G89.11) Referred to Urgent Care.Ordered Toradol injection 30 mg IM. MEDICAL DECISION MAKING AND TREATMENT PLAN: The patient's medical history was reviewed, and medications were reconciled. Given the patient's symptoms and the mechanism of injury, a possible rib fracture is a primary concern. The patient was referred to Urgent Care for an in-person evaluation to ensure a thorough physical examination and appropriate imaging studies. Orders for chest and rib x-rays were placed to rule out any fractures. Additionally, an order for a Toradol injection 30 mg IM was placed to manage acute pain. The patient was advised to follow up in one month or sooner if needed. - Referred to Urgent Care for evaluation. - Ordered chest and rib x-rays. - Ordered Toradol injection 30 mg IM. - Follow up in one month. 09/16/2024 Facet arthritis of lumbosacral region (ICD-10 - M47.817) 1. The patient is complaining of lower back pain, mostly secondary to the axial loading. The patient has had multiple radiofrequency ablations done in the past. The last radiofrequency ablation was done on 03/31/2022 and 03/24/2022 with more than 80% pain relief with improvement in range of motion, activities and ambulation.2. Now, the pain is mostly localized across the lower back secondary to the axial loading, but this pain is non-radicular facetogenic pain. As the patient has been doing the home exercise and stretching, but that is not helping to minimize the pain level.3. He has been using the heating pad and cold compression, Tylenol and Motrin with minimal to no pain relief, so scheduled for the repeat radiofrequency ablation of medial branch blocks at L3-L4, L4-L5 and L5-S1 on both sides. His last radiofrequency ablation was done on 03/24/2022 and 03/31/2022 in the lumbar spine. Patient has tried and failed 8 weeks conservative treatment in the past 6 months such as physical therapy, home exercise and oral medications including NSAIDs and Tylenol. Patient has been using the heating pad and cold compressions but not helping to relieve the pain. Patient pain is a greater than 6 on a scale of 10 despite doing these conservative measures. Patient received greater than 75% of pain relief with improvement in range of motion, activities, ambulation and ADLs with the previous injection. Patient will continue to do the home exercises after the injections. 09/18/2024 Facet arthritis of lumbosacral region (ICD-10 - M47.817) 09/16/2024 Encounter for issuance of medical certificate (ICD-10 - Z02.79) FMLA paperwork was facilitated for a planned recovery period of one month, allowing for re-evaluation as necessary for extended leave. 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 He reports slipping and falling while descending stairs, landing on his side, and hearing a crack on the right side of his ribcage. A subsequent CAT scan revealed nondisplaced fractures of the right posterior 11th and 12th ribs, as well as a nondisplaced fracture of the right transverse process of L1. He experiences pain with deep breathing and difficulty moving his torso due to this pain. He offers no other complaint today and denies any significant complaints of chest pain, palpitations, shortness of breath, or dizziness. Medical Decision Making: Fractures of Right Ribs and L1 Transverse Process: The primary concern is effective pain management and ensuring proper healing. Given the location of the fractures, the patient is likely experiencing significant discomfort affecting respiratory function and mobility. Continued coordinated care with Dr. Meza is critical, particularly to manage pain and monitor healing progress. Referral to pain management may offer relief through potential interventions like nerve blocks or targeted injections. Treatment Plan: Patient was advised to continue follow-up with Dr. Meza. [facility] paperwork was facilitated for a planned recovery period of one month, allowing for re-evaluation as necessary for extended leave. Pain management strategies, possibly including nerve blocks, should be discussed with the specialist to aid in recovery and enhance comfort. Patient was also informed about the importance of ensuring appropriate movement within tolerable limits to prevent complications such as pneumonia from immobility. Coordination with workman's compensation for financial support during recovery was highlighted. Follow-up Discussion: The patient will remain under Dr. Meza's care and has been advised to keep all follow-up appointments. An appointment with pain management was recommended to evaluate additional pain control options. The importance of monitoring for any symptoms such as increased pain, fever, or difficulty breathing was emphasized, and urgent care was suggested if symptoms worsen. Continued communication with his employer and workman's compensation to manage leave and ensure a safe return to work is necessary. 12/05/2024 Lumbar radiculopathy (ICD-10 - M54.16) The patient continued with Oxycodone as prescribed. The dosage was maintained, and the patient was advised to adhere strictly to the prescribed regimen to avoid potential side effects such as constipation, nausea, and respiratory depression. The importance of adherence was emphasized, as non-adherence could lead to uncontrolled pain and withdrawal symptoms. The patient was informed about the risks of combining Oxycodone with other [employer] depressants. Non-pharmacologi perry strategies, such as physical therapy, were recommended to complement pain management. This is a 59 year old male who presents today via telemed for medical management of . This is a follow up visit and the patient was last seen on 12/02/2024. The patient is requesting refills of Oxycodone and Ambien. The patient denies any side effects of the medication and states that the medications are working well. He is also requesting a toradol shot for his lumbar pain. The patient offers no other complaint today. Denies any significant complaints of chest pain, palpitation, shortness of breath, or dizziness today. MEDICAL DECISION MAKING: The patient's current medication regimen appears effective, with no reported side effects. The primary focus is on maintaining the current treatment plan while monitoring for any potential interactions or complications. Differential diagnosis for symptoms were considered, but no new symptoms were reported, suggesting stability in current conditions. TREATMENT PLAN: The medical history was reviewed and discussed in great detail. Reviewed and reconciled medications. The patient's requested medications were refilled today. I-STOP was reviewed to ensure appropriate use and monitoring of medication. The patient was advised to continue his current medications as prescribed. A Toradol shot was ordered for his lumbar pain as requested. The importance of medication adherence was emphasized, along with the risks and complications of non-adherence. Potential interactions with other medications or substances were discussed, particularly concerning the controlled substances prescribed. Non-pharmacolo gical strategies such as physical therapy and cognitive-beha vioral therapy for insomnia were recommended. FOLLOWUP DISCUSSION: The patient was scheduled for a follow-up appointment in one month to evaluate the effectiveness of the current treatment plan and to monitor for any side effects or complications. 11/29/2024 Lumbar spondylosis (ICD-10 - M47.816) 1. The patient is complaining of severe pain across the low back, worse on the right side compared to the left side. CAT was done after the fall which shows T1 spinous process fracture. 11/26/2024 Closed fracture of multiple ribs of right side, initial encounter (ICD-10 - S22.41XA) Plan of Care: Monitoring and pain management, possible follow-up imaging for confirmation and assessment of healing.Potentia l Side Effects: Emphasized monitoring for potential complications such as worsening pain or respiratory issues. The patient is a 59-year-old male presenting via telemedicine for medical management of chronic lumbar pain, associated with his worker's compensation status. He reports experiencing persistent lumbar pain for which Toradol injections have previously provided temporary relief, allowing him to perform daily activities with greater ease. His communicated on his behalf, endorsing the efficacy of this treatment. The patient requests a formal letter indicating he is 100% disabled, with his return to work date yet to be determined. He offers no other complaints today. Denies any significant complaints of chest pain, palpitations, shortness of breath, or dizziness today. Medical Decision Making and Differential Diagnoses The management strategy focused on alleviating the patient's chronic lumbar pain while considering the requirements imposed by his worker's compensation claim. The Toradol injection was considered due to its demonstrated effectiveness in providing temporary pain relief without severe side effects known in this patient. Other potential analgesic interventions considered included non-steroidal anti-inflammat ory drugs (NSAIDs) and physical rehabilitative approaches. Given the chronic nature of his pain, assessing for underlying musculoskeleta l or neurological causes was noted as a consideration for future evaluations. Treatment Plan A Toradol injection was ordered for acute pain relief, acknowledging its benefits in reducing inflammation and pain. The risk of gastrointestin al disturbances associated with NSAIDs was discussed, given the patient's medical need for long-term management options. An official letter was provided to confirm his 100% disability status for worker's compensation purposes, with [id number] timing to be determined based on future assessments. Recommended engagement with physical therapy and pain management specialists was suggested for long-term improvement of function and reduction in pain levels. Continuous monitoring of his response to treatments and regular follow-up appointments for comprehensive reassessment of his disability status were advised. Follow-Up Discussion The patient and his were advised on the importance of regular follow-up appointments to monitor pain levels and therapy effectiveness. Discussing potential alternative pain management strategies if necessary was encouraged as part of a multi-discipli nary approach. Emphasizing communication with his worker's compensation warehouse representative s and healthcare providers regarding changes in pain levels or functionality was essential to better tailor his care. 11/26/2024 Allergic rhinitis (ICD-10 - J30.9) Prescribed Azelastine nasal spray and Pataday eye drops. Recommended continuation of allergen avoidance strategies, hydration, and supportive care. The patient is a 59-year-old male presenting via telemedicine with complaints of a cough, sore throat, hoarse voice, watery eyes, sinus pressure, and stuffy nose for the past two days. These symptoms suggest an upper respiratory infection, possibly viral in nature, coupled with allergic rhinitis given the watery eyes and sinus symptoms. The patient is interested in obtaining [employer] for cough management. He offers no other complaints today. Denies any significant complaints of chest pain, palpitations, shortness of breath, or dizziness today. Medical Decision Making and Differential Diagnoses The immediate medical management focused on addressing both the infectious and allergic components of the patient's symptoms. The prescription of Z-Kody (azithromycin) was considered to prevent or manage a secondary bacterial infection if symptoms persist or worsen, though initially this presentation likely suggests a viral etiology. Azelastine nasal spray and Pataday eye drops addressed the allergic symptoms of congestion and ocular irritation. Differential diagnoses included bacterial sinusitis and pharyngitis; however, based on symptomology and typical course, initial conservative treatment with a focus on relief of symptoms was prioritized. Treatment Plan The patient was prescribed a Z-Kody to manage the potential secondary bacterial infection. Azelastine nasal spray was prescribed to alleviate nasal congestion due to suspected allergic rhinitis, and Pataday eye drops were recommended to control eye watering. Prescribed Tessalon Perles 200 mg three times a day for a week. Potential side effects such as gastrointestin al disturbance from the antibiotic, nasal irritation from the spray, and any ocular irritation from the eye drops were discussed comprehensivel y. Ongoing assessment of symptom progression is necessary, and if no improvement occurs, further evaluation or an in-person examination was advised to rule out other causes. Supportive care, including hydration, rest, and the use of a humidifier, was recommended to alleviate symptoms and hasten recovery. Follow-Up Discussion The patient was advised to monitor his symptoms closely and seek further consultation if symptoms persist or if any new concerning symptoms develop. Emphasizing the importance of completing the prescribed antibiotic course if initiated and continuing allergy management with azelastine and Pataday was crucial. Follow-up was recommended within a week to reassess symptoms, especially if there is no improvement or if worsening occurs. 11/15/2024 Encounter related to worker's compensation claim (ICD-10 - Z02.6) Patient was seen through worker's compensation claim. Medications are refilled, unless otherwise stated. Patient will return to the office for follow up as per workman's compensation. Patient voiced understanding and will return as directed. 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 Potential side effects, including gastrointestinal upset, were reviewed. The importance of adherence was stressed to prevent pain exacerbation. Physical therapy exercises were suggested as a complementary non-pharmacologi perry strategy. This is a 59 year old male who presents today via telemed for medical management of insomnia, right knee pain, and lumbar radiculopathy. The patient is requesting refills of Oxycodone, Tramadol, Tizanidine, Naproxen, and Ambien.The patient denies any side effects of the medication and states that the medications are working well. The patient offers no other complaint today. Denies any significant complaints of chest pain, palpitation, shortness of breath, or dizziness today. MEDICAL DECISION MAKING: The patient's current medication regimen appears effective, with no reported side effects. The primary focus is on maintaining her current treatment plan while monitoring for any potential interactions or complications. Differential diagnoses for her symptoms were considered, but no new symptoms were reported, suggesting stability in her current conditions. TREATMENT PLAN: The medical history was reviewed and discussed in great detail. Reviewed and reconciled medications. The patient's requested medications were refilled today. I-STOP was reviewed to ensure appropriate use and monitoring of medication. The patient was advised to continue his current medication regimen as it has been effective in managing his symptoms without reported side effects. The importance of adherence to the prescribed dosages was emphasized to prevent complications such as medication overuse or dependency. FOLLOWUP DISCUSSION: The patient was scheduled for a follow-up appointment in one month to evaluate the effectiveness of the current treatment plan and to monitor for any side effects or complications. 11/11/2024 Obesity (BMI 30.0-34.9) (ICD-10 - E66.9) 11/08/2024 Encounter for issuance of medical certificate (ICD-10 - Z02.79) -The patient was provided with the necessary documentation stating his 100% disability status for the next 6 weeks to submit for workman's compensation. This is a 59-year-old male patient presenting today via telemed for his workers compensation follow up visit. The patient presents with severe pain following a work-related injury. He has been deemed 100% disabled by the pain management nurse practitioner, Dr. Meza; however, he has not received the necessary documentation to submit for workman's compensation. He has not received any pain management injections, which were canceled multiple times due to lack of approval. He is experiencing significant pain and financial stress due to the inability to work and the delay in receiving compensation. The patient and his are concerned about their ability to pay rent and are seeking urgent assistance to obtain the necessary documentation and pain management. He offers no other complaint today. Denies any significant complaints of chest pain, palpitation, shortness of breath, or dizziness today. MEDICAL DECISION-SATISH Kay Differential Diagnoses Chronic pain: Persistent pain following a work-related injury. Work-related injury: Documented injury leading to disability. Disability status: Requires documentation for workman's compensation. TREATMENT PLAN -The medical history was reviewed and discussed in great detail. -The patient was provided with the necessary documentation stating his 100% disability status for the next 6 weeks to submit for workman's compensation. -He was advised to follow up with his pain management nurse practitioner, Dr. Meza. -The Toradol 30 intramuscular injection will be administered to the patient today. The patient was advised visiting the for injection administration . -The patient was counseled on the importance of adhering to his pain management plan and the risks of non-adherence, including worsening pain and potential complications. -He was also provided with information on non-pharmacolo gical pain management strategies, such as physical therapy and the use of heat/cold packs. FOLLOW-UP DISCUSSION The patient was advised to submit the disability documentation to his employer and follow up with his pain management nurse practitioner. He was instructed to monitor his pain levels and report any changes or worsening of symptoms. 11/05/2024 Closed fracture of multiple ribs of right side, initial encounter (ICD-10 - S22.41XA) Plan of Care: Monitoring and pain management, possible follow-up imaging for confirmation and assessment of healing.Devana shell Side Effects: Emphasized monitoring for potential complications such as worsening pain or respiratory issues. This is a 59-year-old male patient presenting today via telemedicine for a follow-up regarding a work-related injury sustained on September 12, 2022. 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 Recent MRI findings revealed degenerative changes and/or disc herniations at T1-2 through T12-L1 with very mild to mild foraminal stenosis at T1-2, T9-10, T10-11, and T12-L1. An MRI of the lumbar spine showed a new disc herniation at T12-L1 with iehhoinb-vd-fy dillon stenosis at L3-4 and L5-S1 and rjla-qz-cunqyd te stenosis at other levels. There is nerve root impingement at L3-4, L5-S1, with possible impingement at L1-2, L2-3, and L4-5. The patient reports ongoing right-sided low back pain. He is requesting an extension of his Family and Medical Leave Act (FMLA) coverage and a letter for work documentation. He offers no other complaint today. Denies any significant complaints of chest pain, palpitations, shortness of breath, or dizziness today. Medical Decision-Satish kay The patient's chronic low back pain, stemming from multiple disc herniations and nerve impingement, requires continued monitoring and symptomatic management. Considering the severity of the spine conditions, his ongoing work displacement was warranted, with a recommendation for further evaluation by Dr. Meza. Given the potential need for surgical intervention, referral to a management specialist was considered a future option. Managing pain through a multidisciplin margareth approach, possibly including medications, physical therapy, and interventional procedures, was discussed. Treatment Plan -The MRI findings were reviewed, demonstrating significant spinal pathologies contributing to the patient's chronic pain. -FMLA was extended for an additional month to accommodate his recovery needs and prevent further injury. A Toradol injection was ordered to address his acute pain symptoms more effectively. -Advised to see Dr. Meza to reassess the condition and determine further treatment, including the possibility of surgical consultation if conservative management fails. Follow-Up The patient was advised to continue avoiding work activities that may exacerbate his condition and to adhere to follow-up appointments with Dr. Meza. Regular evaluations of his condition, with attention to any progressive neurological symptoms, were emphasized. He should return for a consultation to reassess functional status and management options, particularly if pain persists or worsens. 11/05/2024 Other chronic pain (ICD-10 - G89.29) Plan of Care: Continued use of tizanidine and ordered Toradol injection.Medica tion: Tizanidine, Toradol.Side effects: For Toradol, potential for renal impairment and gastrointestinal issues.Importanc e of adherence: Essential for effective pain relief and functional improvement.Non- pharmacological strategies: Recommend physical therapy and regular exercise as tolerated. This is a 59-year-old male patient presenting today via telemedicine for the management of insomnia and chronic pain. He is requesting refills of Ambien and tizanidine, reporting that both medications are working well without any side effects. Additionally, he is requesting a Toradol injection for pain management. He offers no other complaint today. Denies any significant complaints of chest pain, palpitations, shortness of breath, or dizziness today. Medical Decision-Satish kay The patient's medications for insomnia and chronic pain are effective as he reports no side effects and satisfactory pain control. Refills for Ambien and tizanidine were considered appropriate. The patient's request for a Toradol injection was reviewed and deemed a suitable adjunct for his chronic pain, taking care to avoid potential renal or gastrointestin al side effects from nonsteroidal anti-inflammat ory drugs (NSAIDs). Treatment Plan Refills were provided for Ambien and tizanidine. The prescription monitoring program (ROAD HOGGER OPERATOR I-STOP) was reviewed to ensure compliance with controlled medication prescriptions. A Toradol injection was ordered to manage chronic pain. The patient was advised on the importance of adhering to prescribed treatments and was informed about potential Toradol side effects, including increased risk of bleeding, and advised to avoid co-administrat ion with other NSAIDs. Follow-Up The patient was advised to schedule a follow-up visit to assess the effectiveness of pain management strategies and to monitor for any potential side effects or changes in health status. Continual evaluation of his pain management plan, considering non-pharmacolo gical options such as physical therapy, was recommended. 10/29/2024 Lumbar spondylosis (ICD-10 - M47.816) 11/02/2024 Lumbar spondylosis (ICD-10 - M47.816) 1. The patient is complaining of severe pain across the low back, worse on the right side compared to the left side. CAT was done after the fall which shows T1 spinous process fracture. 10/25/2024 Lumbar spondylosis (ICD-10 - M47.816) 1. The patient is complaining of severe pain across the low back, worse on the right side compared to the left side. CAT was done after the fall which shows T1 spinous process fracture. He needs to get the MRI for further evaluation. Referral is given for MRI of the lumbar spine. 2. The patient is advised to follow up in the office when MRI is done to review the results and discuss treatment options. 10/11/2024 Encounter related to worker''s compensation claim (ICD-10 - Z02.6) Patient was seen through worker's compensation claim. Medications are refilled, unless otherwise stated. Patient will return to the office for followup as per workman's compensation. Patient voiced understanding and will return as directed. 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 He reports that he slipped and fell while descending stairs, landing on his side and hearing a crack on the right side of his ribcage. A computed tomography (CT) scan conducted after the incident revealed nondisplaced fractures of the right posterior 11th and 12th ribs and a nondisplaced fracture of the right transverse process of L1. The patient continues to experience significant rib and back pain, which he reports as more severe than previously, affecting his ability to resume work duties. He requests a letter to extend his absence from work due to these persisting issues. Patient offers no other complaint today. Denies any significant complaints of chest pain, palpitation, shortness of breath, or dizziness today. Medical Decision Making and Differential Diagnoses: For the rib fractures, the healing process must be monitored, with consideration given to potential complications such as nonunion or delayed healing, which may require further imaging or orthopedic evaluation. For the transverse process fracture, continued assessment is needed to ensure stability and healing, and to monitor for any neurologic symptoms that could suggest additional spinal injury. Chronic pain management requires careful balance to avoid opioid dependency and assess for any underlying conditions that may exacerbate pain perception, such as anxiety or depression. Treatment Plan: The primary concern was addressing the patient's chronic pain and immobility due to the fractures. Pain management was to involve continued use of any previously prescribed pain medications, though specific medications and dosages would need to be confirmed or adjusted based on current needs and provided prescriptions. The patient was educated on the healing process and the importance of adhering to any prescribed physical therapy exercises to promote healing and prevent stiffness. The requested work absence letter was prepared, acknowledging the patient's ongoing pain and functional limitations, which prevent the patient from fulfilling job duties. This supports the need for continued medical leave until significant improvement is observed. The patient was advised to maintain regular follow-up visits to monitor the healing of the fractures, and additional imaging might be considered if symptoms persist or worsen. Efforts were made to integrate non-pharmacolo gical pain strategies, such as application of heat/cold, gentle stretching, and possibly engaging in supportive exercises or physical therapy as tolerated. Follow-up Discussion: A follow-up plan was established to reassess the patient's pain and mobility, with the goal of gauging improvement and planning for eventual return to work. The patient was informed of the importance of adhering to medical advice and the risks of complications from disregarding the recommended care plan. Monitoring for new symptoms, such as increased pain or any signs of neurological deficits, is critical for timely intervention. The patient was encouraged to contact the healthcare provider if there are any concerns or exacerbation of symptoms before the next scheduled visit. 10/28/2024 Encounter related to worker's compensation claim (ICD-10 - Z02.6) Patient was seen through worker's compensation claim. Medications are refilled, unless otherwise stated. Patient will return to the office for followup as per workman's compensation. Patient voiced understanding and will return as directed. 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 He reports slipping and falling while descending stairs, landing on his side, and hearing a crack on the right side of his ribcage, suggestive of rib fractures. The patient requests an extension for [facility] paperwork related to this injury. He has been consulting with Dr. Meza, who has ordered MRIs for further evaluation but is seeking an earlier appointment due to ongoing pain and suspected involvement of his lower back. Patient offers no other complaint today. Denies any significant complaints of chest pain, palpitation, shortness of breath, or dizziness today. Medical Decision Making and Differential Diagnoses Rib Fracture: Diagnosed based on the reported fall and symptoms; further imaging through MRI is planned for a detailed assessment. Chronic Pain: Observed in the rib and lower back areas, potentially caused or exacerbated by the fall; considering modification of treatment to address pain management effectively. Fall on Same Level from Stairs: Contributed to the rib fracture and possibly to the exacerbation of back pain; ongoing assessment for additional injuries or complications. Treatment Plan The [facility] paperwork was completed and signed to accommodate an extension request due to his ongoing injury and discomfort. Follow-up imaging with an MRI was prioritized to assess his rib and lower back injuries more comprehensivel y. Efforts were made to expedite his MRI appointment for earlier completion. Pain management strategies were discussed, potentially adjusting current treatment to adequately address his symptoms and improve function. Continued follow-up with Dr. Meza and coordination of care for further interventions such as possible steroid injections or physical therapy were recommended based on the MRI results. Follow-Up Discussion Further evaluation and management depend on MRI findings. The patient should be monitored for any worsening pain, changes in mobility, or new symptoms that may arise. Adjustments to his care should ensure adequate pain control and address any potential complications. Ongoing communication with his care providers, including Dr. Meza and any additional specialists, will help tailor a comprehensive treatment strategy aimed at promoting recovery and return to work. 02/10/2025 Allergic asthma, mild intermittent, with acute exacerbation (ICD-10 - J45.21) Asthma management included refilling the Albuterol HFA inhaler for acute symptom relief, with instructions to use the inhaler as directed and to report any increase in frequency of use, which may indicate suboptimal asthma control. The patient was reminded of the importance of medication adherence and avoidance of known triggers, and was advised to seek medical attention if symptoms worsen or if there is any difficulty breathing. This is a 59 year old male who presents today via telemed for medical management of lumbar radiculopathy, asthma, seasonal allergies, and insomnia. The patient is requesting refills of Oxycodone, Tramadol, Tizanidine, Albuterol HFA, Montelukast, and Ambien. The patient denies any side effects of the medication and states that the medications are working well. He is also requesting Toradol injection for his back pain. The patient offers no other complaint today. Denies any significant complaints of chest pain, palpitation, shortness of breath, or dizziness today. MEDICAL DECISION MAKING AND TREATMENT PLAN: The patient's chronic conditions were reviewed, and medication reconciliation was performed. The patient's request for refills of Oxycodone, Tramadol, Tizanidine, Albuterol HFA, Montelukast, and Ambien was approved, as he reported no adverse effects and good symptom control. The Prescription Monitoring Program (ROAD HOGGER OPERATOR) was reviewed to ensure safe prescribing of controlled substances. A Toradol (ketorolac) 30 mg intramuscular injection was ordered for management of chronic back pain. The patient was counseled on the risks, benefits, and potential side effects of all medications, especially controlled substances and NSAIDs. The importance of medication adherence, avoidance of polypharmacy, and monitoring for side effects or complications was emphasized. The patient was advised to follow up as scheduled or sooner if symptoms worsen or new issues arise. Refilled Oxycodone, Tramadol, Tizanidine, Albuterol HFA, Montelukast, and Ambien as requested. Ordered Toradol 30 mg IM injection for back pain. Reviewed ROAD HOGGER OPERATOR for controlled substance safety. Counseled patient on medication adherence, side effects, and risks. Advised follow-up as scheduled or sooner if symptoms change. FOLLOWUP DISCUSSION: The patient was scheduled for a follow-up appointment in one month to evaluate the effectiveness of the current treatment plan and to monitor for any side effects or complications. 01/02/2025 Closed fracture of multiple ribs of right side, initial encounter (ICD-10 - S22.41XA) Plan of Care: Monitoring and pain management, possible follow-up imaging for confirmation and assessment of healing.Potentia l Side Effects: Emphasized monitoring for potential complications such as worsening pain or respiratory issues. This is a 59-year-old male patient presenting today via telemed for a follow up on the back pain. This is a workers compensation follow up visit. The patient presents with complaints of worsening back pain. He reports that his back pain has been exacerbated by moving heavy items with the help of his son. He describes the pain as severe and persistent. He is requesting an order for a Toradol injection to be administered for back pain relief. He offers no other complaint today. Denies any significant complaints of chest pain, palpitation, shortness of breath, or dizziness today. MEDICAL DECISION MAKING The differential diagnoses include exacerbation of chronic back pain. For the severity of his back pain a Toradol injection for pain management was considered appropriate. The plan will involve considering non-opioid options for pain management and ensuring follow-up for his workers' compensation case. TREATMENT PLAN -The medical history was reviewed and discussed in great detail. -Workers compensation visit was done today. -Toradol injection was advised to be administered for back pain relief. -Recommended non-opioid pain management options, including NSAIDs and physical therapy. -Emphasized the importance of adherence to the treatment plan and the risks of non-adherence. -Discussed potential complications of untreated back pain, such as decreased mobility and quality of life. FOLLOW-UP DISCUSSION He was advised to follow up as needed to reassess his symptoms and response to treatment. He was also instructed to seek immediate medical attention if his symptoms worsen or if he experiences any new symptoms. 01/02/2025 Cough (ICD-10 - R05.9) This is a 59-year-old male patient presenting today via telemed for a follow up visit for medical management of lumbar radiculopathy, allergic asthma, and insomnia. He is requesting refills of his Oxycodone, Tramadol, Zolpidem, and Albuterol HFA. He denies any potential side effects towards the medications and reports the medications are working well. The patient has been experiencing sinus congestion for the past two weeks, characterized by sinus pressure, mucus production, and a persistent cough, particularly at night. He has been using an albuterol inhaler for relief but continues to experience significant symptoms. He is requesting a prescription for a Z-Kody for symptom management. He also mentions a recent visit to the emergency room where he was diagnosed with a viral infection and advised to rest and stay hydrated. He offers no other complaint today. Denies any significant complaints of chest pain, palpitation, shortness of breath, or dizziness today. MEDICAL DECISION MAKING His symptoms suggest a possible upper respiratory infection. The differential diagnoses include acute sinusitis, and viral upper respiratory infection. For the persistent sinus symptoms, and a Z-Kody for potential bacterial sinusitis was considered appropriate. The use of an albuterol inhaler was continued to manage his respiratory symptoms. TREATMENT PLAN -The medical history and the ongoing symptoms were reviewed and discussed in great detail. -Reviewed and reconciled medications. -The refills were provided as requested. - ROAD HOGGER OPERATOR-I stop was reviewed with the patient today. -Prescribed Zithromax Z-Kody (azithromycin) to be taken as directed. The mechanism of action, benefits, and side effects were discussed with the patient. Adherence Importance: Essential to complete the course to prevent antibiotic resistance. FOLLOW-UP DISCUSSION He was advised to follow up as needed to reassess his symptoms and response to treatment. He was also instructed to seek immediate medical attention if his symptoms worsen or if he experiences any new symptoms. 12/26/2024 Chronic cough (ICD-10 - R05.3) -Reviewed and reconciled medications. -Prescribed Tussionex cough syrup to be taken half a teaspoon at bedtime as directed. The mechanism of action, benefits, and side effects were discussed with the patient. - ROAD HOGGER OPERATOR-I stop was reviewed with the patient today. -Advised on the importance of adherence to the new medication and potential side effects. -Discussed non-pharmacologi perry strategies such as using a humidifier and staying hydrated. This is a 59-year-old male patient presenting today via telemed for an urgent care follow up visit. The patient presented with a persistent cough that has not improved despite previous treatments. The recent blood work done on 12/23/2024 revealed low MPV at 6.3; otherwise, unremarkable. The X-ray chest done on 12/23/2024 showed no acute pulmonary disease. He mentioned that he has been experiencing tremors, a runny nose, chest congestion, and a change in his voice. He also noted that his cough is particularly troublesome at night, preventing him from sleeping. He requested a prescription for a cough syrup, which he had used previously with some relief. Additionally, he is requesting refills of his oxycodone. He denies any potential side effects towards the medications and reports the medications are working well. He offers no other complaint today. Denies any significant complaints of chest pain, palpitation, shortness of breath, or dizziness today. MEDICAL DECISION MAKING His persistent cough, despite previous treatments and a clear X-ray, suggests a need for further evaluation and possibly a different therapeutic approach. The differential diagnoses include chronic bronchitis, post-infectiou s cough, or an allergic reaction. Given his request for oxycodone, a controlled substance, it is crucial to consider the potential for misuse and explore alternative treatments. TREATMENT PLAN -The medical history was reviewed and discussed in great detail. -Reviewed and discussed the results of diagnostics at length . -Prescribed Tussionex cough syrup to be taken half a teaspoon at bedtime as directed. The mechanism of action, benefits, and side effects were discussed with the patient. - ROAD HOGGER OPERATOR-I stop was reviewed with the patient today. -Advised on the importance of adherence to the new medication and potential side effects. -Discussed non-pharmacolo gical strategies such as using a humidifier and staying hydrated. FOLLOW-UP DISCUSSION He was advised to follow up as needed to assess the effectiveness of the new cough syrup. He was also instructed to contact the office if his symptoms worsen or if he experiences any side effects from the new medications. 12/26/2024 Encounter related to worker's compensation claim (ICD-10 - Z02.6) Patient was seen through worker's compensation claim. Medications are refilled, unless otherwise stated. Patient will return to the office for followup as per workman's compensation. Patient voiced understanding and will return as directed. This is a 59-year-old male patient presenting today via telemed for a workers compensation follow-up visit. The patient reported severe back pain related to a workers' compensation case, for which he has been awaiting approval for injections. He expressed frustration with the ongoing pain and the delay in receiving treatment. He offers no other complaint today. Denies any significant complaints of chest pain, palpitation, shortness of breath, or dizziness today. MEDICAL DECISION MAKING His back pain, related to a workers' compensation case, requires careful management, including pain relief and addressing the underlying cause. The plan will involve considering non-opioid options for pain management and ensuring follow-up for his workers' compensation case. TREATMENT PLAN -The medical history was reviewed and discussed in great detail. -Workers compensation visit was done today. -Toradol injection was advised to be administered for back pain relief. -Recommended non-opioid pain management options, including NSAIDs and physical therapy. -Emphasized the importance of adherence to the treatment plan and the risks of non-adherence. -Discussed potential complications of untreated back pain, such as decreased mobility and quality of life. FOLLOW-UP DISCUSSION He was advised to follow up as needed to assess the effectiveness of the pain management plan. He was also instructed to contact the office if his symptoms worsen or if he experiences any side effects from the new medications 12/24/2024 Obesity (BMI 30.0-34.9) (ICD-10 - E66.9) 12/23/2024 Lumbar spondylosis (ICD-10 - M47.816) 1. The patient is complaining of severe pain across the low back, worse on the right side compared to the left side. CAT was done after the fall which shows T1 spinous process fracture. 05/27/2025 Abdominal pain (ICD-10 - R10.84) - [...] dependence, sedation, constipation, and respiratory depression. The ROAD HOGGER OPERATOR I-STOP was reviewed to ensure appropriate [...] times daily for chronic pain management. The ROAD HOGGER OPERATOR I-STOP was reviewed for appropriate use. [...] sooner if new symptoms or concerns arise. 03/07/2025 Primary insomnia (ICD-10 - F51.01) A [...] daytime functioning, or increased risk of accidents. Non-pharmacologi perry interventions, including sleep hygiene practices and consideration [...] insomnia, Montelukast for allergies, and Vitamin D supplementatio n. The patient requests refills for all these [...] include lumbar disc herniation, spinal stenosis, and musculoskeleta l strain, but the chronicity and response to current therapy support the diagnosis of lumbar radiculopathy. Insomnia is likely multifactorial , possibly exacerbated by chronic pain and opioid use. Seasonal allergies are well-controlle d on Montelukast, and vitamin D deficiency is managed with supplementatio n. The patient's request for a Toradol injection was considered appropriate for acute pain exacerbation, given the lack of reported side effects and the need for multimodal pain management. Continued monitoring for opioid-related adverse effects and potential medication interactions is warranted. TREATMENT PLAN: The patient's medical history was reviewed and medications were reconciled.Ref ills for Oxycodone, Tramadol, Ambien, Montelukast, and Vitamin D were provided as the patient reported good efficacy and no adverse effects. The ROAD HOGGER OPERATOR I-STOP was reviewed to ensure appropriate use and monitoring of medication. A Toradol (ketorolac) 60 mg intramuscular injection was ordered to address acute exacerbation of back pain. The patient was counseled on the risks and benefits of opioid and NSAID use, including potential side effects, risk of dependence, gastrointestin al, renal, and cardiovascular complications, and the importance of adherence to prescribed regimens. Non-pharmacolo gical strategies such as physical therapy, stretching, and [...] monitor for any side effects or complications. 06/02/2025 Medication management (ICD-10 - Z79.899) Review [...] after labs and imaging for further management. 03/07/2025 Seasonal allergies (ICD-10 - J30.2) A [...] to avoid known allergens and consider adjunctive non-pharmacologi perry measures, such as nasal saline irrigation, if [...] insomnia, Montelukast for allergies, and Vitamin D supplementatio n. The patient requests refills for all these [...] include lumbar disc herniation, spinal stenosis, and musculoskeleta l strain, but the chronicity and response to current therapy support the diagnosis of lumbar radiculopathy. Insomnia is likely multifactorial , possibly exacerbated by chronic pain and opioid use. Seasonal allergies are well-controlle d on Montelukast, and vitamin D deficiency is managed with supplementatio n. The patient's request for a Toradol injection was considered appropriate for acute pain exacerbation, given the lack of reported side effects and the need for multimodal pain management. Continued monitoring for opioid-related adverse effects and potential medication interactions is warranted. TREATMENT PLAN: The patient's medical history was reviewed and medications were reconciled.Ref ills for Oxycodone, Tramadol, Ambien, Montelukast, and Vitamin D were provided as the patient reported good efficacy and no adverse effects. The ROAD HOGGER OPERATOR I-STOP was reviewed to ensure appropriate use and monitoring of medication. A Toradol (ketorolac) 60 mg intramuscular injection was ordered to address acute exacerbation of back pain. The patient was counseled on the risks and benefits of opioid and NSAID use, including potential side effects, risk of dependence, gastrointestin al, renal, and cardiovascular complications, and the importance of adherence to prescribed regimens. Non-pharmacolo gical strategies such as physical therapy, stretching, and [...] monitor for any side effects or complications. 05/27/2025 [facility] current use of opiate analgesic (ICD-10 - [...] dependence, sedation, constipation, and respiratory depression. The ROAD HOGGER OPERATOR I-STOP was reviewed to ensure appropriate [...] times daily for chronic pain management. The ROAD HOGGER OPERATOR I-STOP was reviewed for appropriate use. [...] sooner if new symptoms or concerns arise. 12/23/2024 Thoracic radiculopathy (ICD-10 - M54.14) 1. The patient has been complaining of mid back pain radiating into the right side of the chest for which he was scheduled for the thoracic epidural steroid injection, but it is being denied by the Worker's Comp and the patient's MRI does show herniation of the disc at T3-T4 to T12-L1 levels with foraminal stenosis at multiple levels, so we are going to resubmit for the thoracic epidural steroid injection at T8-T9. 2. Risks and benefits explained to the patient. All his questions were answered. He voiced understanding and was amenable to the treatment plan. 3. As the patient's injection is being denied, so I have told him he needs to have a russet repairer and the patient states that he is trying to find a russet repairer who speaks [place]. 12/24/2024 Pain in right leg (ICD-10 - M79.604) 12/26/2024 Herniation of lumbar intervertebral disc with radiculopathy (ICD-10 - M51.16) Plan of Care: Continued evaluation by Dr. Meza, with potential surgical consultation if indicated.Non-ph armacological strategies: Physical therapy and activity modification recommended. This is a 59-year-old male patient presenting today via telemed for a workers compensation follow-up visit. The patient reported severe back pain related to a workers' compensation case, for which he has been awaiting approval for injections. He expressed frustration with the ongoing pain and the delay in receiving treatment. He offers no other complaint today. Denies any significant complaints of chest pain, palpitation, shortness of breath, or dizziness today. MEDICAL DECISION MAKING His back pain, related to a workers' compensation case, requires careful management, including pain relief and addressing the underlying cause. The plan will involve considering non-opioid options for pain management and ensuring follow-up for his workers' compensation case. TREATMENT PLAN -The medical history was reviewed and discussed in great detail. -Workers compensation visit was done today. -Toradol injection was advised to be administered for back pain relief. -Recommended non-opioid pain management options, including NSAIDs and physical therapy. -Emphasized the importance of adherence to the treatment plan and the risks of non-adherence. -Discussed potential complications of untreated back pain, such as decreased mobility and quality of life. FOLLOW-UP DISCUSSION He was advised to follow up as needed to assess the effectiveness of the pain management plan. He was also instructed to contact the office if his symptoms worsen or if he experiences any side effects from the new medications 01/02/2025 Sinus pressure (ICD-10 - J34.89) -Prescribed Zithromax Z-Kody (azithromycin) to be taken as directed. The mechanism of action, benefits, and side effects were discussed with the patient. Medication: Azithromycin 500 mg on day 1, then 250 mg daily for 4 days. Side Effects: Potential gastrointestinal upset, diarrhea. Adherence Importance: Essential to complete the course to prevent antibiotic resistance. Risks of Non-Adherence: Persistent infection, potential complications. Non-Pharmacologi perry Strategies: Steam inhalation, saline nasal sprays. This is a 59-year-old male patient presenting today via telemed for a follow up visit for medical management of lumbar radiculopathy, allergic asthma, and insomnia. He is requesting refills of his Oxycodone, Tramadol, Zolpidem, and Albuterol HFA. He denies any potential side effects towards the medications and reports the medications are working well. The patient has been experiencing sinus congestion for the past two weeks, characterized by sinus pressure, mucus production, and a persistent cough, particularly at night. He has been using an albuterol inhaler for relief but continues to experience significant symptoms. He is requesting a prescription for a Z-Kody for symptom management. He also mentions a recent visit to the emergency room where he was diagnosed with a viral infection and advised to rest and stay hydrated. He offers no other complaint today. Denies any significant complaints of chest pain, palpitation, shortness of breath, or dizziness today. MEDICAL DECISION MAKING His symptoms suggest a possible upper respiratory infection. The differential diagnoses include acute sinusitis, and viral upper respiratory infection. For the persistent sinus symptoms, and a Z-Kody for potential bacterial sinusitis was considered appropriate. The use of an albuterol inhaler was continued to manage his respiratory symptoms. TREATMENT PLAN -The medical history and the ongoing symptoms were reviewed and discussed in great detail. -Reviewed and reconciled medications. -The refills were provided as requested. - ROAD HOGGER OPERATOR-I stop was reviewed with the patient today. -Prescribed Zithromax Z-Kody (azithromycin) to be taken as directed. The mechanism of action, benefits, and side effects were discussed with the patient. Adherence Importance: Essential to complete the course to prevent antibiotic resistance. FOLLOW-UP DISCUSSION He was advised to follow up as needed to reassess his symptoms and response to treatment. He was also instructed to seek immediate medical attention if his symptoms worsen or if he experiences any new symptoms. 01/02/2025 Encounter related to worker's compensation claim (ICD-10 - Z02.6) Patient was seen through worker's compensation claim. Medications are refilled, unless otherwise stated. Patient will return to the office for followup as per workman's compensation. Patient voiced understanding and will return as directed. This is a 59-year-old male patient presenting today via telemed for a follow up on the back pain. This is a workers compensation follow up visit. The patient presents with complaints of worsening back pain. He reports that his back pain has been exacerbated by moving heavy items with the help of his son. He describes the pain as severe and persistent. He is requesting an order for a Toradol injection to be administered for back pain relief. He offers no other complaint today. Denies any significant complaints of chest pain, palpitation, shortness of breath, or dizziness today. MEDICAL DECISION MAKING The differential diagnoses include exacerbation of chronic back pain. For the severity of his back pain a Toradol injection for pain management was considered appropriate. The plan will involve considering non-opioid options for pain management and ensuring follow-up for his workers' compensation case. TREATMENT PLAN -The medical history was reviewed and discussed in great detail. -Workers compensation visit was done today. -Toradol injection was advised to be administered for back pain relief. -Recommended non-opioid pain management options, including NSAIDs and physical therapy. -Emphasized the importance of adherence to the treatment plan and the risks of non-adherence. -Discussed potential complications of untreated back pain, such as decreased mobility and quality of life. FOLLOW-UP DISCUSSION He was advised to follow up as needed to reassess his symptoms and response to treatment. He was also instructed to seek immediate medical attention if his symptoms worsen or if he experiences any new symptoms. 02/10/2025 Seasonal allergies (ICD-10 - J30.2) For allergic rhinitis, Montelukast was refilled to help control allergy symptoms. The patient was counseled on potential side effects, including headache, abdominal pain, and rare neuropsychiatric effects such as mood changes or suicidal thoughts, and was instructed to report any concerning symptoms. The importance of avoiding known allergens and monitoring for new or worsening symptoms was emphasized. This is a 59 year old male who presents today via telemed for medical management of lumbar radiculopathy, asthma, seasonal allergies, and insomnia. The patient is requesting refills of Oxycodone, Tramadol, Tizanidine, Albuterol HFA, Montelukast, and Ambien. The patient denies any side effects of the medication and states that the medications are working well. He is also requesting Toradol injection for his back pain. The patient offers no other complaint today. Denies any significant complaints of chest pain, palpitation, shortness of breath, or dizziness today. MEDICAL DECISION MAKING AND TREATMENT PLAN: The patient's chronic conditions were reviewed, and medication reconciliation was performed. The patient's request for refills of Oxycodone, Tramadol, Tizanidine, Albuterol HFA, Montelukast, and Ambien was approved, as he reported no adverse effects and good symptom control. The Prescription Monitoring Program (ROAD HOGGER OPERATOR) was reviewed to ensure safe prescribing of controlled substances. A Toradol (ketorolac) 30 mg intramuscular injection was ordered for management of chronic back pain. The patient was counseled on the risks, benefits, and potential side effects of all medications, especially controlled substances and NSAIDs. The importance of medication adherence, avoidance of polypharmacy, and monitoring for side effects or complications was emphasized. The patient was advised to follow up as scheduled or sooner if symptoms worsen or new issues arise. Refilled Oxycodone, Tramadol, Tizanidine, Albuterol HFA, Montelukast, and Ambien as requested. Ordered Toradol 30 mg IM injection for back pain. Reviewed ROAD HOGGER OPERATOR for controlled substance safety. Counseled patient on medication adherence, side effects, and risks. Advised follow-up as scheduled or sooner if symptoms change. FOLLOWUP DISCUSSION: The patient was scheduled for a follow-up appointment in one month to evaluate the effectiveness of the current treatment plan and to monitor for any side effects or complications. 10/11/2024 Encounter for issuance of medical certificate (ICD-10 - Z02.79) The patient's request for a work absence letter was fulfilled, formally acknowledging his current physical limitations due to his ongoing rib and back pain. Continued management of his rib and transverse process fractures was prioritized, with emphasis on pain control and gradual increases in physical activity as tolerated to enhance recovery. 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 He reports that he slipped and fell while descending stairs, landing on his side and hearing a crack on the right side of his ribcage. A computed tomography (CT) scan conducted after the incident revealed nondisplaced fractures of the right posterior 11th and 12th ribs and a nondisplaced fracture of the right transverse process of L1. The patient continues to experience significant rib and back pain, which he reports as more severe than previously, affecting his ability to resume work duties. He requests a letter to extend his absence from work due to these persisting issues. Patient offers no other complaint today. Denies any significant complaints of chest pain, palpitation, shortness of breath, or dizziness today. Medical Decision Making and Differential Diagnoses: For the rib fractures, the healing process must be monitored, with consideration given to potential complications such as nonunion or delayed healing, which may require further imaging or orthopedic evaluation. For the transverse process fracture, continued assessment is needed to ensure stability and healing, and to monitor for any neurologic symptoms that could suggest additional spinal injury. Chronic pain management requires careful balance to avoid opioid dependency and assess for any underlying conditions that may exacerbate pain perception, such as anxiety or depression. Treatment Plan: The primary concern was addressing the patient's chronic pain and immobility due to the fractures. Pain management was to involve continued use of any previously prescribed pain medications, though specific medications and dosages would need to be confirmed or adjusted based on current needs and provided prescriptions. The patient was educated on the healing process and the importance of adhering to any prescribed physical therapy exercises to promote healing and prevent stiffness. The requested work absence letter was prepared, acknowledging the patient's ongoing pain and functional limitations, which prevent the patient from fulfilling job duties. This supports the need for continued medical leave until significant improvement is observed. The patient was advised to maintain regular follow-up visits to monitor the healing of the fractures, and additional imaging might be considered if symptoms persist or worsen. Efforts were made to integrate non-pharmacolo gical pain strategies, such as application of heat/cold, gentle stretching, and possibly engaging in supportive exercises or physical therapy as tolerated. Follow-up Discussion: A follow-up plan was established to reassess the patient's pain and mobility, with the goal of gauging improvement and planning for eventual return to work. The patient was informed of the importance of adhering to medical advice and the risks of complications from disregarding the recommended care plan. Monitoring for new symptoms, such as increased pain or any signs of neurological deficits, is critical for timely intervention. The patient was encouraged to contact the healthcare provider if there are any concerns or exacerbation of symptoms before the next scheduled visit. 10/25/2024 Work related injury (ICD-10 - Y99.0) 1. The patient is not currently working and he is put out of work by Dr. Villegas. He is on 100% temporary disability. WC information: I feel the current symptoms are causally related to the injury at work. The complaints are consistent with the history of the injury. The history of the injury is consistent with my objective findings. 11/02/2024 Thoracic radiculopathy (ICD-10 - M54.14) 1. The patient has been complaining of back pain radiating into the chest for which MRI of the thoracic spine is reviewed. MRI does show mild mass effect on the anterior thecal sac without significant spinal stenosis. There is also small central disc/paracentral disc herniation noted at T3-L4 through T12-L1 levels. There is also foraminal stenosis noted at multiple levels. 2. As the patient is complaining of this pain and having difficulty breathing, so I have recommended thoracic epidural steroid injection at T8-T9. 3. Risks and benefits explained to the patient. All his questions were answered. He voiced understanding and was amenable to the treatment plan. 11/05/2024 Encounter related to worker's compensation claim (ICD-10 - Z02.6) Patient was seen through worker's compensation claim. Medications are refilled, unless otherwise stated. Patient will return to the office for followup as per workman's compensation. Patient voiced understanding and will return as directed. This is a 59-year-old male patient presenting today via telemedicine for a follow-up regarding a work-related injury sustained on September 12, 2022. 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 Recent MRI findings revealed degenerative changes and/or disc herniations at T1-2 through T12-L1 with very mild to mild foraminal stenosis at T1-2, T9-10, T10-11, and T12-L1. An MRI of the lumbar spine showed a new disc herniation at T12-L1 with xwyrpdpm-be-mo dillon stenosis at L3-4 and L5-S1 and rtlr-oc-cqyvux te stenosis at other levels. There is nerve root impingement at L3-4, L5-S1, with possible impingement at L1-2, L2-3, and L4-5. The patient reports ongoing right-sided low back pain. He is requesting an extension of his Family and Medical Leave Act (FMLA) coverage and a letter for work documentation. He offers no other complaint today. Denies any significant complaints of chest pain, palpitations, shortness of breath, or dizziness today. Medical Decision-Satish kay The patient's chronic low back pain, stemming from multiple disc herniations and nerve impingement, requires continued monitoring and symptomatic management. Considering the severity of the spine conditions, his ongoing work displacement was warranted, with a recommendation for further evaluation by Dr. Meza. Given the potential need for surgical intervention, referral to a management specialist was considered a future option. Managing pain through a multidisciplin margareth approach, possibly including medications, physical therapy, and interventional procedures, was discussed. Treatment Plan -The MRI findings were reviewed, demonstrating significant spinal pathologies contributing to the patient's chronic pain. -FMLA was extended for an additional month to accommodate his recovery needs and prevent further injury. A Toradol injection was ordered to address his acute pain symptoms more effectively. -Advised to see Dr. Meza to reassess the condition and determine further treatment, including the possibility of surgical consultation if conservative management fails. Follow-Up The patient was advised to continue avoiding work activities that may exacerbate his condition and to adhere to follow-up appointments with Dr. Meza. Regular evaluations of his condition, with attention to any progressive neurological symptoms, were emphasized. He should return for a consultation to reassess functional status and management options, particularly if pain persists or worsens. 11/05/2024 Herniation of lumbar intervertebral disc with radiculopathy (ICD-10 - M51.16) Plan of Care: Continued evaluation by Dr. Meza, with potential surgical consultation if indicated.Non-ph armacological strategies: Physical therapy and activity modification recommended. This is a 59-year-old male patient presenting today via telemedicine for a follow-up regarding a work-related injury sustained on September 12, 2022. 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 Recent MRI findings revealed degenerative changes and/or disc herniations at T1-2 through T12-L1 with very mild to mild foraminal stenosis at T1-2, T9-10, T10-11, and T12-L1. An MRI of the lumbar spine showed a new disc herniation at T12-L1 with vulkfoiv-jm-qi dillon stenosis at L3-4 and L5-S1 and hdqn-bt-zzmsnj te stenosis at other levels. There is nerve root impingement at L3-4, L5-S1, with possible impingement at L1-2, L2-3, and L4-5. The patient reports ongoing right-sided low back pain. He is requesting an extension of his Family and Medical Leave Act (FMLA) coverage and a letter for work documentation. He offers no other complaint today. Denies any significant complaints of chest pain, palpitations, shortness of breath, or dizziness today. Medical Decision-Satish kay The patient's chronic low back pain, stemming from multiple disc herniations and nerve impingement, requires continued monitoring and symptomatic management. Considering the severity of the spine conditions, his ongoing work displacement was warranted, with a recommendation for further evaluation by Dr. Meza. Given the potential need for surgical intervention, referral to a management specialist was considered a future option. Managing pain through a multidisciplin margareth approach, possibly including medications, physical therapy, and interventional procedures, was discussed. Treatment Plan -The MRI findings were reviewed, demonstrating significant spinal pathologies contributing to the patient's chronic pain. -FMLA was extended for an additional month to accommodate his recovery needs and prevent further injury. A Toradol injection was ordered to address his acute pain symptoms more effectively. -Advised to see Dr. Meza to reassess the condition and determine further treatment, including the possibility of surgical consultation if conservative management fails. Follow-Up The patient was advised to continue avoiding work activities that may exacerbate his condition and to adhere to follow-up appointments with Dr. Meza. Regular evaluations of his condition, with attention to any progressive neurological symptoms, were emphasized. He should return for a consultation to reassess functional status and management options, particularly if pain persists or worsens. 11/11/2024 Pain in right leg (ICD-10 - M79.604) 11/12/2024 Other chronic pain (ICD-10 - G89.29) The patient was continued with current treatment pain. Potential side effects, such as sedation and constipation, were discussed. Adherence to the medication regimen was emphasized to prevent symptom worsening. Physical therapy and stretching exercises were recommended as additional non-pharmacologi perry strategies. This is a 59 year old male who presents today via telemed for medical management of insomnia, right knee pain, and lumbar radiculopathy. The patient is requesting refills of Oxycodone, Tramadol, Tizanidine, Naproxen, and Ambien.The patient denies any side effects of the medication and states that the medications are working well. The patient offers no other complaint today. Denies any significant complaints of chest pain, palpitation, shortness of breath, or dizziness today. MEDICAL DECISION MAKING: The patient's current medication regimen appears effective, with no reported side effects. The primary focus is on maintaining her current treatment plan while monitoring for any potential interactions or complications. Differential diagnoses for her symptoms were considered, but no new symptoms were reported, suggesting stability in her current conditions. TREATMENT PLAN: The medical history was reviewed and discussed in great detail. Reviewed and reconciled medications. The patient's requested medications were refilled today. I-STOP was reviewed to ensure appropriate use and monitoring of medication. The patient was advised to continue his current medication regimen as it has been effective in managing his symptoms without reported side effects. The importance of adherence to the prescribed dosages was emphasized to prevent complications such as medication overuse or dependency. FOLLOWUP DISCUSSION: The patient was scheduled for a follow-up appointment in one month to evaluate the effectiveness of the current treatment plan and to monitor for any side effects or complications. 11/26/2024 Encounter related to worker's compensation claim (ICD-10 - Z02.6) Patient was seen through worker's compensation claim. Medications are refilled, unless otherwise stated. Patient will return to the office for followup as per workman's compensation. Patient voiced understanding and will return as directed. The patient is a 59-year-old male presenting via telemedicine for medical management of chronic lumbar pain, associated with his worker's compensation status. He reports experiencing persistent lumbar pain for which Toradol injections have previously provided temporary relief, allowing him to perform daily activities with greater ease. His communicated on his behalf, endorsing the efficacy of this treatment. The patient requests a formal letter indicating he is 100% disabled, with his return to work date yet to be determined. He offers no other complaints today. Denies any significant complaints of chest pain, palpitations, shortness of breath, or dizziness today. Medical Decision Making and Differential Diagnoses The management strategy focused on alleviating the patient's chronic lumbar pain while considering the requirements imposed by his worker's compensation claim. The Toradol injection was considered due to its demonstrated effectiveness in providing temporary pain relief without severe side effects known in this patient. Other potential analgesic interventions considered included non-steroidal anti-inflammat ory drugs (NSAIDs) and physical rehabilitative approaches. Given the chronic nature of his pain, assessing for underlying musculoskeleta l or neurological causes was noted as a consideration for future evaluations. Treatment Plan A Toradol injection was ordered for acute pain relief, acknowledging its benefits in reducing inflammation and pain. The risk of gastrointestin al disturbances associated with NSAIDs was discussed, given the patient's medical need for long-term management options. An official letter was provided to confirm his 100% disability status for worker's compensation purposes, with [id number] timing to be determined based on future assessments. Recommended engagement with physical therapy and pain management specialists was suggested for long-term improvement of function and reduction in pain levels. Continuous monitoring of his response to treatments and regular follow-up appointments for comprehensive reassessment of his disability status were advised. Follow-Up Discussion The patient and his were advised on the importance of regular follow-up appointments to monitor pain levels and therapy effectiveness. Discussing potential alternative pain management strategies if necessary was encouraged as part of a multi-discipli nary approach. Emphasizing communication with his worker's compensation warehouse representative s and healthcare providers regarding changes in pain levels or functionality was essential to better tailor his care. 11/29/2024 Thoracic radiculopathy (ICD-10 - M54.14) 1. The patient has been complaining of back pain radiating into the chest for which MRI of the thoracic spine is reviewed. MRI does show mild mass effect on the anterior thecal sac without significant spinal stenosis. There is also small central disc/paracentral disc herniation noted at T3-L4 through T12-L1 levels. There is also foraminal stenosis noted at multiple levels. 2. The patient is complaining of this pain and having difficulty breathing for which he is scheduled for the thoracic epidural steroid injection at T8-T9 but no approval from the Worker's Comp until now, so we are going to resubmit for the thoracic epidural steroid injection at T8-T9. 3. Risks and benefits explained to the patient. All his questions were answered. He voiced understanding and was amenable to the treatment plan. 12/05/2024 Medication management (ICD-10 - Z79.899) Review and update the patient's medication list. Educate the patient on the importance of medication adherence. Discuss strategies to improve adherence, such as using a pill organizer or setting reminders. Schedule a follow-up appointment to reassess medication effectiveness and adherence. This is a 59 year old male who presents today via telemed for medical management of . This is a follow up visit and the patient was last seen on 12/02/2024. The patient is requesting refills of Oxycodone and Ambien. The patient denies any side effects of the medication and states that the medications are working well. He is also requesting a toradol shot for his lumbar pain. The patient offers no other complaint today. Denies any significant complaints of chest pain, palpitation, shortness of breath, or dizziness today. MEDICAL DECISION MAKING: The patient's current medication regimen appears effective, with no reported side effects. The primary focus is on maintaining the current treatment plan while monitoring for any potential interactions or complications. Differential diagnosis for symptoms were considered, but no new symptoms were reported, suggesting stability in current conditions. TREATMENT PLAN: The medical history was reviewed and discussed in great detail. Reviewed and reconciled medications. The patient's requested medications were refilled today. I-STOP was reviewed to ensure appropriate use and monitoring of medication. The patient was advised to continue his current medications as prescribed. A Toradol shot was ordered for his lumbar pain as requested. The importance of medication adherence was emphasized, along with the risks and complications of non-adherence. Potential interactions with other medications or substances were discussed, particularly concerning the controlled substances prescribed. Non-pharmacolo gical strategies such as physical therapy and cognitive-beha vioral therapy for insomnia were recommended. FOLLOWUP DISCUSSION: The patient was scheduled for a follow-up appointment in one month to evaluate the effectiveness of the current treatment plan and to monitor for any side effects or complications. 09/18/2024 Thoracic radiculopathy (ICD-10 - M54.14) 1. He is status post thoracic epidural steroid injection at T7-T8 on 06/13/2024 with significant improvement in the pain levels.2. The patient is encouraged to continue exercise and stretching as tolerated. 09/16/2024 Thoracic radiculopathy (ICD-10 - M54.14) 1. The patient has been complaining of mid back pain radiating to the anterior chest on both sides, and at times, it is limiting his breathing pattern. The patient has been taking the anti-inflammator y medication, but that is not helping to minimize the pain level.2. The patient does have a history of thoracic radiculopathy, for which he underwent thoracic epidural steroid injection on 06/28/2022, which lasted for more than 8 months. Now, the pain is coming back and getting worse limiting his breathing at times, so scheduled for the repeat thoracic epidural steroid injection at T7-T8.3. Risks and benefits of this procedure are explained to the patient. All the questions are answered. The patient voiced understanding and was amenable to the treatment plan. 09/13/2024 Rib pain on right side (ICD-10 - R07.81) Ordered chest and rib x-rays. MEDICAL DECISION MAKING AND TREATMENT PLAN: The patient's medical history was reviewed, and medications were reconciled. Given the patient's symptoms and the mechanism of injury, a possible rib fracture is a primary concern. The patient was referred to Urgent Care for an in-person evaluation to ensure a thorough physical examination and appropriate imaging studies. Orders for chest and rib x-rays were placed to rule out any fractures. Additionally, an order for a Toradol injection 30 mg IM was placed to manage acute pain. The patient was advised to follow up in one month or sooner if needed. - Referred to Urgent Care for evaluation. - Ordered chest and rib x-rays. - Ordered Toradol injection 30 mg IM. - Follow up in one month. 08/29/2024 Valgus deformity, not elsewhere classified, left ankle (ICD-10 - M21.072) 08/15/2024 Allergic asthma, mild intermittent, with acute exacerbation (ICD-10 - J45.21) (History of Present Illness): The patient is a 58-year-old male who presents via telemedicine for an annual wellness visit and medication refills. The patient is opted for video call visit. He reports a history of low back pain for which he is prescribed oxycodone, and insomnia managed with Ambien. Additionally, he has asthma, which is under medical management. The patient mentions being up to date with routine blood work but is unsure about his colonoscopy status. He expresses concern about a problem with his blood work related to a previous appointment. He describes a history of playing basketball in his youth but now experiences discomfort in his left ankle, particularly after walking for 13 minutes daily, which he does as part of his routine. He notes the presence of a small bone or bump behind the left ankle, which causes mild pain after physical activity and at night. He manages this discomfort by resting his foot. The patient is concerned about the abnormality and seeks further evaluation. No chest pain, chest pressure or shortness of breath. No abdominal pain, nausea, vomiting, constipation or diarrhea. No fevers, sweats, chills or fatigue. No headaches or dizziness. No blurred or double vision. No sore throat, ear pain/popping. No change in appetite. No loss of taste or smell. Medical Decision Making: The medical decision-makin g process involves addressing the patient's need for medication refills for oxycodone, Ambien, and asthma management. The patient's concern about the left ankle is noted, and an X-ray is recommended to evaluate the abnormality further. The patient is advised to monitor the ankle for worsening symptoms and to seek urgent care if necessary. The discussion also includes ensuring the patient follows up on his colonoscopy and any pending blood work issues. 09/19/2024 Right hip pain (ICD-10 - M25.551) 10/01/2024 Pain in right leg (ICD-10 - M79.604) 10/11/2024 Lumbar radiculopathy (ICD-10 - M54.16) Plan of Care: Administered Toradol injection for immediate relief. Continued assessment of pain management plan was discussed, considering possible alternatives to opioids for long-term management.Medic ation: Toradol injection (30 mg IM).Potential Side Effects: Gastrointestinal upset, drowsiness, risk of kidney issues with prolonged use.Importance of Adherence: Ensures effective pain management and prevention of pain spikes.Risks and Complications of Non-Adherence: Uncontrolled pain, impact on daily functioning.Alte rnatives: Encouraged considering non-opioid pain relief strategies such as physical therapy, acupuncture, or use of NSAIDs under supervision The patient is a 59-year-old male presenting for a telemedicine consultation primarily for medical management of insomnia, asthma, and lumbar radiculopathy. He requested refills for his medications, which include Ambien for insomnia, Tramadol and Oxycodone for pain management, and Albuterol HFA for asthma. He stated that these medications have been effective in managing his conditions and he denied any known side effects from their use. Additionally, the patient requested Tessalon perles to manage a cough, which is a new symptom he presented during this visit. He also inquired about receiving Toradol injections to aid in pain relief. The patient is awaiting results for a CT scan that was performed to evaluate concerns related to his stomach. He also reported a weight gain of 15-16 pounds, possibly related to limited activity due to pain. The patient expressed concern about the pain in his lower back and its progression. He indicated feeling discomfort but no other significant issues today, such as chest pain, palpitations, shortness of breath, or dizziness. Medical Decision Making and Differential Diagnoses: For insomnia, besides primary sleeplessness, conditions such as anxiety, depression, or sleep apnea were considered. Evaluation of sleep hygiene and possibly a sleep study were areas for future consideration if symptoms persist. In lumbar radiculopathy, differentials like spinal stenosis or herniated discs need exploration, potentially through imaging if no improvement is noted. The newly reported cough could be due to a mild upper respiratory infection or could have an allergenic component. In considering chronic pain management, the possibility of opioid dependency and the necessity of assessing pain against potential medication side effects were discussed. Treatment Plan: Refills were authorized for Ambien, Tramadol, Oxycodone, and Albuterol HFA as the patient reported them effective and free from concerning side effects. Benzonatate (Tessalon perles) was prescribed to address cough symptoms, with a note to monitor for resolution of symptoms and follow up if persisting. Toradol 30 mg IM was administered for immediate pain relief, particularly for the intensified back and rib pain. The patient agreed to the importance of adhering strictly to the prescribed schedule for medications, understanding that this supports the effectiveness of treatment and helps prevent complications associated with inconsistent use, such as unmanaged pain or withdrawal symptoms. He was advised about the potential side effects of Tramadol and Oxycodone, including drowsiness, constipations, and dependence, encouraging the use of non-opioid pain relief methods when possible, such as physical therapy and heat application. Follow-up Discussion: It was recommended that the patient schedule a follow-up appointment to discuss the CT scan results when available, which might influence ongoing treatment plans or indicate the need for further testing or referrals. By the next meeting, it will also be important to reassess all current symptoms, pain management strategies, and overall medication efficacy and tolerability. The patient was advised to remain observant for any new or changing symptoms and to report these promptly to optimize care and therapeutic outcomes. 10/14/2024 Cough (ICD-10 - R05.9) This is a 59-year-old male patient presenting today via telemed for management of his upper respiratory symptoms. The patient presents with symptoms suggestive of a sinus infection. The patient reports experiencing nasal congestion, yellow nasal discharge, dry eyes, and a headache localized to the forehead. These symptoms have been ongoing for the past four days. The patient denies having a sore throat but mentions occasional low-grade fever. The nasal congestion and discharge have been persistent, with the discharge initially being white and now turning yellow. The patient also reports a sensation of pressure in the head and dry, watery eyes. Additionally, the patient is requesting refills of his Azelastine nasal spray. He denies any potential side effects towards the medications and reports the medications are working well. He offers no other complaint today. Denies any significant complaints of chest pain, palpitation, shortness of breath, or dizziness today. MEDICAL DECISION-SATISH Kay Given the patient's symptoms of nasal congestion, yellow nasal discharge, headache, and dry eyes, the primary diagnosis is acute sinusitis. Differential diagnoses include acute viral upper respiratory infection and allergic rhinitis. The presence of yellow nasal discharge and headache localized to the forehead supports the diagnosis of sinusitis. The patient's use of Nasacort nasal spray suggests a history of similar episodes, which may indicate recurrent sinusitis. TREATMENT PLAN -The medical history and the ongoing symptoms were reviewed and discussed in great detail. -The treatment plan included refilling the Azelastine nasal spray. -The patient was prescribed a Zithromax Z-Kody for further management. The mechanism of action, benefits, and side effects were discussed with the patient. -The patient was advised to continue using his nasal sprays and to take the prescribed antibiotic as directed. -Ordered influenza, RSV, and COVID-19 swab tests along with PCR test to be done. FOLLOW-UP DISCUSSION He was advised to follow up if his symptoms did not improve within a few days of starting the antibiotics. He was also instructed to seek medical attention if he experienced any worsening of symptoms, such as high fever, severe headache, or difficulty breathing. The importance of completing the full course of antibiotics was emphasized to prevent recurrence and resistance. 08/02/2024 Left arm pain (ICD-10 - M79.602) 08/02/2024 Left arm pain (ICD-10 - M79.602) Ordered x-ray left elbow.Referred to Urgent Care.Advised follow-up in one week. MEDICAL DECISION MAKING AND TREATMENT PLAN: The patient's medical history was reviewed, and medications were reconciled. Given the nature of the fall and the reported symptoms, an x-ray of the lumbar spine and left elbow was ordered to assess for any fractures or other injuries. The patient was referred to Urgent Care at the [facility] for further evaluation and to complete a workers' compensation report. For ongoing pain management, an order for Toradol 60 mg IM was placed. The potential side effects of Toradol, including gastrointestin al upset, kidney function impairment, and increased risk of bleeding, were discussed with the patient. Follow-up was recommended in one week to reassess the patient's condition and adjust the treatment plan as necessary. - Ordered x-ray lumbar spine. - Ordered x-ray left elbow. - Referred to Urgent Care. - Prescribed Toradol 60 mg IM. - Follow-up in one week. 07/26/2024 Acute cough (ICD-10 - R05.1) Prescribed Tessalon Perles.Discussed potential side effects. MEDICAL DECISION MAKING AND TREATMENT PLAN: The patient's medical history was reviewed, and his medications were reconciled. The patient was prescribed Tessalon Perles 100 mg to be taken three times daily for 7 days to manage his cough. The potential side effects of Tessalon Perles, including drowsiness, dizziness, and gastrointestin al upset, were discussed in detail. Given that the patient's cough is likely due to his allergic asthma, Trelegy Ellipta inhaler was also prescribed to be used once daily. The potential side effects of Trelegy Ellipta, including oral thrush, hoarseness, and increased risk of pneumonia, were discussed in detail. The requested refills for Tramadol, Montelukast, and Zolpidem were processed. The ROAD HOGGER OPERATOR I-STOP was reviewed with the patient during the visit. The patient was advised to follow up in one month or sooner if any need arises. - Prescribed Tessalon Perles for cough. - Prescribed Trelegy Ellipta inhaler. - Processed refills for Tramadol, Montelukast, and Zolpidem. - Reviewed ROAD HOGGER OPERATOR I-STOP. - Follow up in one month. 07/26/2024 Allergic asthma, mild intermittent, with acute exacerbation (ICD-10 - J45.21) Prescribed Trelegy Ellipta inhaler. MEDICAL DECISION MAKING AND TREATMENT PLAN: The patient's medical history was reviewed, and his medications were reconciled. The patient was prescribed Tessalon Perles 100 mg to be taken three times daily for 7 days to manage his cough. The potential side effects of Tessalon Perles, including drowsiness, dizziness, and gastrointestin al upset, were discussed in detail. Given that the patient's cough is likely due to his allergic asthma, Trelegy Ellipta inhaler was also prescribed to be used once daily. The potential side effects of Trelegy Ellipta, including oral thrush, hoarseness, and increased risk of pneumonia, were discussed in detail. The requested refills for Tramadol, Montelukast, and Zolpidem were processed. The ROAD HOGGER OPERATOR I-STOP was reviewed with the patient during the visit. The patient was advised to follow up in one month or sooner if any need arises. - Prescribed Tessalon Perles for cough. - Prescribed Trelegy Ellipta inhaler. - Processed refills for Tramadol, Montelukast, and Zolpidem. - Reviewed ROAD HOGGER OPERATOR I-STOP. - Follow up in one month. 08/02/2024 Acute left-sided low back pain without sciatica (ICD-10 - M54.50) 10/14/2024 Headache (ICD-10 - G44.319) This is a 59-year-old male patient presenting today via telemed for management of his upper respiratory symptoms. The patient presents with symptoms suggestive of a sinus infection. The patient reports experiencing nasal congestion, yellow nasal discharge, dry eyes, and a headache localized to the forehead. These symptoms have been ongoing for the past four days. The patient denies having a sore throat but mentions occasional low-grade fever. The nasal congestion and discharge have been persistent, with the discharge initially being white and now turning yellow. The patient also reports a sensation of pressure in the head and dry, watery eyes. Additionally, the patient is requesting refills of his Azelastine nasal spray. He denies any potential side effects towards the medications and reports the medications are working well. He offers no other complaint today. Denies any significant complaints of chest pain, palpitation, shortness of breath, or dizziness today. MEDICAL DECISION-SATISH Kay Given the patient's symptoms of nasal congestion, yellow nasal discharge, headache, and dry eyes, the primary diagnosis is acute sinusitis. Differential diagnoses include acute viral upper respiratory infection and allergic rhinitis. The presence of yellow nasal discharge and headache localized to the forehead supports the diagnosis of sinusitis. The patient's use of Nasacort nasal spray suggests a history of similar episodes, which may indicate recurrent sinusitis. TREATMENT PLAN -The medical history and the ongoing symptoms were reviewed and discussed in great detail. -The treatment plan included refilling the Azelastine nasal spray. -The patient was prescribed a Zithromax Z-Kody for further management. The mechanism of action, benefits, and side effects were discussed with the patient. -The patient was advised to continue using his nasal sprays and to take the prescribed antibiotic as directed. -Ordered influenza, RSV, and COVID-19 swab tests along with PCR test to be done. FOLLOW-UP DISCUSSION He was advised to follow up if his symptoms did not improve within a few days of starting the antibiotics. He was also instructed to seek medical attention if he experienced any worsening of symptoms, such as high fever, severe headache, or difficulty breathing. The importance of completing the full course of antibiotics was emphasized to prevent recurrence and resistance. 10/11/2024 Acute cough (ICD-10 - R05.1) Medication: Tessalon perles was prescribed for cough management.Adher ence: Patient was advised to follow dosing instructions to effectively control symptoms.Risks of Non-adherence: Could lead to sustained cough symptoms, potentially exacerbating rib pain or causing throat irritation. The patient is a 59-year-old male presenting for a telemedicine consultation primarily for medical management of insomnia, asthma, and lumbar radiculopathy. He requested refills for his medications, which include Ambien for insomnia, Tramadol and Oxycodone for pain management, and Albuterol HFA for asthma. He stated that these medications have been effective in managing his conditions and he denied any known side effects from their use. Additionally, the patient requested Tessalon perles to manage a cough, which is a new symptom he presented during this visit. He also inquired about receiving Toradol injections to aid in pain relief. The patient is awaiting results for a CT scan that was performed to evaluate concerns related to his stomach. He also reported a weight gain of 15-16 pounds, possibly related to limited activity due to pain. The patient expressed concern about the pain in his lower back and its progression. He indicated feeling discomfort but no other significant issues today, such as chest pain, palpitations, shortness of breath, or dizziness. Medical Decision Making and Differential Diagnoses: For insomnia, besides primary sleeplessness, conditions such as anxiety, depression, or sleep apnea were considered. Evaluation of sleep hygiene and possibly a sleep study were areas for future consideration if symptoms persist. In lumbar radiculopathy, differentials like spinal stenosis or herniated discs need exploration, potentially through imaging if no improvement is noted. The newly reported cough could be due to a mild upper respiratory infection or could have an allergenic component. In considering chronic pain management, the possibility of opioid dependency and the necessity of assessing pain against potential medication side effects were discussed. Treatment Plan: Refills were authorized for Ambien, Tramadol, Oxycodone, and Albuterol HFA as the patient reported them effective and free from concerning side effects. Benzonatate (Tessalon perles) was prescribed to address cough symptoms, with a note to monitor for resolution of symptoms and follow up if persisting. Toradol 30 mg IM was administered for immediate pain relief, particularly for the intensified back and rib pain. The patient agreed to the importance of adhering strictly to the prescribed schedule for medications, understanding that this supports the effectiveness of treatment and helps prevent complications associated with inconsistent use, such as unmanaged pain or withdrawal symptoms. He was advised about the potential side effects of Tramadol and Oxycodone, including drowsiness, constipations, and dependence, encouraging the use of non-opioid pain relief methods when possible, such as physical therapy and heat application. Follow-up Discussion: It was recommended that the patient schedule a follow-up appointment to discuss the CT scan results when available, which might influence ongoing treatment plans or indicate the need for further testing or referrals. By the next meeting, it will also be important to reassess all current symptoms, pain management strategies, and overall medication efficacy and tolerability. The patient was advised to remain observant for any new or changing symptoms and to report these promptly to optimize care and therapeutic outcomes. 10/11/2024 [facility] current use of opiate analgesic (ICD-10 - Z79.891) Patient made aware of drug addictive potential. Patient advised not to take medication, drink, drive or operate heavy machinery. Advised patient can from respiratory depression. Patient voiced understanding. The patient is a 59-year-old male presenting for a telemedicine consultation primarily for medical management of insomnia, asthma, and lumbar radiculopathy. He requested refills for his medications, which include Ambien for insomnia, Tramadol and Oxycodone for pain management, and Albuterol HFA for asthma. He stated that these medications have been effective in managing his conditions and he denied any known side effects from their use. Additionally, the patient requested Tessalon perles to manage a cough, which is a new symptom he presented during this visit. He also inquired about receiving Toradol injections to aid in pain relief. The patient is awaiting results for a CT scan that was performed to evaluate concerns related to his stomach. He also reported a weight gain of 15-16 pounds, possibly related to limited activity due to pain. The patient expressed concern about the pain in his lower back and its progression. He indicated feeling discomfort but no other significant issues today, such as chest pain, palpitations, shortness of breath, or dizziness. Medical Decision Making and Differential Diagnoses: For insomnia, besides primary sleeplessness, conditions such as anxiety, depression, or sleep apnea were considered. Evaluation of sleep hygiene and possibly a sleep study were areas for future consideration if symptoms persist. In lumbar radiculopathy, differentials like spinal stenosis or herniated discs need exploration, potentially through imaging if no improvement is noted. The newly reported cough could be due to a mild upper respiratory infection or could have an allergenic component. In considering chronic pain management, the possibility of opioid dependency and the necessity of assessing pain against potential medication side effects were discussed. Treatment Plan: Refills were authorized for Ambien, Tramadol, Oxycodone, and Albuterol HFA as the patient reported them effective and free from concerning side effects. Benzonatate (Tessalon perles) was prescribed to address cough symptoms, with a note to monitor for resolution of symptoms and follow up if persisting. Toradol 30 mg IM was administered for immediate pain relief, particularly for the intensified back and rib pain. The patient agreed to the importance of adhering strictly to the prescribed schedule for medications, understanding that this supports the effectiveness of treatment and helps prevent complications associated with inconsistent use, such as unmanaged pain or withdrawal symptoms. He was advised about the potential side effects of Tramadol and Oxycodone, including drowsiness, constipations, and dependence, encouraging the use of non-opioid pain relief methods when possible, such as physical therapy and heat application. Follow-up Discussion: It was recommended that the patient schedule a follow-up appointment to discuss the CT scan results when available, which might influence ongoing treatment plans or indicate the need for further testing or referrals. By the next meeting, it will also be important to reassess all current symptoms, pain management strategies, and overall medication efficacy and tolerability. The patient was advised to remain observant for any new or changing symptoms and to report these promptly to optimize care and therapeutic outcomes. 10/01/2024 Pain in left leg (ICD-10 - M79.605) 08/15/2024 Colon cancer screening (ICD-10 - Z12.11) (History of Present Illness): The patient is a 58-year-old male who presents via telemedicine for an annual wellness visit and medication refills. The patient is opted for video call visit. He reports a history of low back pain for which he is prescribed oxycodone, and insomnia managed with Ambien. Additionally, he has asthma, which is under medical management. The patient mentions being up to date with routine blood work but is unsure about his colonoscopy status. He expresses concern about a problem with his blood work related to a previous appointment. He describes a history of playing basketball in his youth but now experiences discomfort in his left ankle, particularly after walking for 13 minutes daily, which he does as part of his routine. He notes the presence of a small bone or bump behind the left ankle, which causes mild pain after physical activity and at night. He manages this discomfort by resting his foot. The patient is concerned about the abnormality and seeks further evaluation. No chest pain, chest pressure or shortness of breath. No abdominal pain, nausea, vomiting, constipation or diarrhea. No fevers, sweats, chills or fatigue. No headaches or dizziness. No blurred or double vision. No sore throat, ear pain/popping. No change in appetite. No loss of taste or smell. Medical Decision Making: The medical decision-makethan g process involves addressing the patient's need for medication refills for oxycodone, Ambien, and asthma management. The patient's concern about the left ankle is noted, and an X-ray is recommended to evaluate the abnormality further. The patient is advised to monitor the ankle for worsening symptoms and to seek urgent care if necessary. The discussion also includes ensuring the patient follows up on his colonoscopy and any pending blood work issues. 09/16/2024 Lumbar spondylosis (ICD-10 - M47.816) 1. The patient is status post lumbar radiofrequency ablation done on the right side on 04/25/2024 and on the left side on 04/15/2024. The patient is reporting more than 80% pain relief with improvement in range of motion and activities. Now, the pain is minimal and tolerable.2. The patient is encouraged to continue exercise and stretching as tolerated. 09/18/2024 Lumbar spondylosis (ICD-10 - M47.816) 1. The patient is status post lumbar radiofrequency ablation done on the right side on 04/25/2024 and on the left side on 04/15/2024. The patient is reporting more than 80% pain relief with improvement in range of motion and activities. Now, the pain is minimal and tolerable.2. The patient is encouraged to continue exercise and stretching as tolerated. 11/29/2024 Work related injury (ICD-10 - Y99.0) WC information: I feel the current symptoms are causally related to the injury at work. The complaints are consistent with the history of the injury. The history of the injury is consistent with my objective findings. 1. The patient is not currently working and he is put out of work by Dr. Villegas. He is on 100% temporary disability. 2. The patient is advised to have city attorney for his Worker's Comp case as we submitted for these injections and so far we did not get the approval. 11/26/2024 Herniation of lumbar intervertebral disc with radiculopathy (ICD-10 - M51.16) Plan of Care: Continued evaluation by Dr. Meza, with potential surgical consultation if indicated.Non-ph armacological strategies: Physical therapy and activity modification recommended. The patient is a 59-year-old male presenting via telemedicine for medical management of chronic lumbar pain, associated with his worker's compensation status. He reports experiencing persistent lumbar pain for which Toradol injections have previously provided temporary relief, allowing him to perform daily activities with greater ease. His communicated on his behalf, endorsing the efficacy of this treatment. The patient requests a formal letter indicating he is 100% disabled, with his return to work date yet to be determined. He offers no other complaints today. Denies any significant complaints of chest pain, palpitations, shortness of breath, or dizziness today. Medical Decision Making and Differential Diagnoses The management strategy focused on alleviating the patient's chronic lumbar pain while considering the requirements imposed by his worker's compensation claim. The Toradol injection was considered due to its demonstrated effectiveness in providing temporary pain relief without severe side effects known in this patient. Other potential analgesic interventions considered included non-steroidal anti-inflammat ory drugs (NSAIDs) and physical rehabilitative approaches. Given the chronic nature of his pain, assessing for underlying musculoskeleta l or neurological causes was noted as a consideration for future evaluations. Treatment Plan A Toradol injection was ordered for acute pain relief, acknowledging its benefits in reducing inflammation and pain. The risk of gastrointestin al disturbances associated with NSAIDs was discussed, given the patient's medical need for long-term management options. An official letter was provided to confirm his 100% disability status for worker's compensation purposes, with [id number] timing to be determined based on future assessments. Recommended engagement with physical therapy and pain management specialists was suggested for long-term improvement of function and reduction in pain levels. Continuous monitoring of his response to treatments and regular follow-up appointments for comprehensive reassessment of his disability status were advised. Follow-Up Discussion The patient and his were advised on the importance of regular follow-up appointments to monitor pain levels and therapy effectiveness. Discussing potential alternative pain management strategies if necessary was encouraged as part of a multi-discipli nary approach. Emphasizing communication with his worker's compensation warehouse representative s and healthcare providers regarding changes in pain levels or functionality was essential to better tailor his care. 11/12/2024 Lumbar radiculopathy (ICD-10 - M54.16) The patient continued Oxycodone and Tizanidine, which effectively managed his lumbar radiculopathy. Potential side effects, such as sedation and constipation, were discussed. Adherence to the medication regimen was emphasized to prevent symptom worsening. Physical therapy and stretching exercises were recommended as additional non-pharmacologi perry strategies. This is a 59 year old male who presents today via telemed for medical management of insomnia, right knee pain, and lumbar radiculopathy. The patient is requesting refills of Oxycodone, Tramadol, Tizanidine, Naproxen, and Ambien.The patient denies any side effects of the medication and states that the medications are working well. The patient offers no other complaint today. Denies any significant complaints of chest pain, palpitation, shortness of breath, or dizziness today. MEDICAL DECISION MAKING: The patient's current medication regimen appears effective, with no reported side effects. The primary focus is on maintaining her current treatment plan while monitoring for any potential interactions or complications. Differential diagnoses for her symptoms were considered, but no new symptoms were reported, suggesting stability in her current conditions. TREATMENT PLAN: The medical history was reviewed and discussed in great detail. Reviewed and reconciled medications. The patient's requested medications were refilled today. I-STOP was reviewed to ensure appropriate use and monitoring of medication. The patient was advised to continue his current medication regimen as it has been effective in managing his symptoms without reported side effects. The importance of adherence to the prescribed dosages was emphasized to prevent complications such as medication overuse or dependency. FOLLOWUP DISCUSSION: The patient was scheduled for a follow-up appointment in one month to evaluate the effectiveness of the current treatment plan and to monitor for any side effects or complications. 11/11/2024 Pain in left leg (ICD-10 - M79.605) 11/08/2024 Rib pain on right side (ICD-10 - R07.81) Plan of Care: Continued assessment and modification of pain management strategies, including possible medication adjustments or physical therapy referrals.Import ance of Adherence: Highlighted the need to adhere to advice and treatment to prevent complications and support recovery. This is a 59-year-old male patient presenting today via telemed for his workers compensation follow up visit. The patient presents with severe pain following a work-related injury. He has been deemed 100% disabled by the pain management nurse practitioner, Dr. Meza; however, he has not received the necessary documentation to submit for workman's compensation. He has not received any pain management injections, which were canceled multiple times due to lack of approval. He is experiencing significant pain and financial stress due to the inability to work and the delay in receiving compensation. The patient and his are concerned about their ability to pay rent and are seeking urgent assistance to obtain the necessary documentation and pain management. He offers no other complaint today. Denies any significant complaints of chest pain, palpitation, shortness of breath, or dizziness today. MEDICAL DECISION-SATISH Kay Differential Diagnoses Chronic pain: Persistent pain following a work-related injury. Work-related injury: Documented injury leading to disability. Disability status: Requires documentation for workman's compensation. TREATMENT PLAN -The medical history was reviewed and discussed in great detail. -The patient was provided with the necessary documentation stating his 100% disability status for the next 6 weeks to submit for workman's compensation. -He was advised to follow up with his pain management nurse practitioner, Dr. Meza. -The Toradol 30 intramuscular injection will be administered to the patient today. The patient was advised visiting the for injection administration . -The patient was counseled on the importance of adhering to his pain management plan and the risks of non-adherence, including worsening pain and potential complications. -He was also provided with information on non-pharmacolo gical pain management strategies, such as physical therapy and the use of heat/cold packs. FOLLOW-UP DISCUSSION The patient was advised to submit the disability documentation to his employer and follow up with his pain management nurse practitioner. He was instructed to monitor his pain levels and report any changes or worsening of symptoms. 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 This is a 59-year-old male patient presenting today via telemedicine for a follow-up regarding a work-related injury sustained on September 12, 2022. 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 Recent MRI findings revealed degenerative changes and/or disc herniations at T1-2 through T12-L1 with very mild to mild foraminal stenosis at T1-2, T9-10, T10-11, and T12-L1. An MRI of the lumbar spine showed a new disc herniation at T12-L1 with algrxusi-sm-dq dillon stenosis at L3-4 and L5-S1 and ffmn-bz-sceaxo te stenosis at other levels. There is nerve root impingement at L3-4, L5-S1, with possible impingement at L1-2, L2-3, and L4-5. The patient reports ongoing right-sided low back pain. He is requesting an extension of his Family and Medical Leave Act (FMLA) coverage and a letter for work documentation. He offers no other complaint today. Denies any significant complaints of chest pain, palpitations, shortness of breath, or dizziness today. Medical Decision-Satish kay The patient's chronic low back pain, stemming from multiple disc herniations and nerve impingement, requires continued monitoring and symptomatic management. Considering the severity of the spine conditions, his ongoing work displacement was warranted, with a recommendation for further evaluation by Dr. Meza. Given the potential need for surgical intervention, referral to a management specialist was considered a future option. Managing pain through a multidisciplin margareth approach, possibly including medications, physical therapy, and interventional procedures, was discussed. Treatment Plan -The MRI findings were reviewed, demonstrating significant spinal pathologies contributing to the patient's chronic pain. -FMLA was extended for an additional month to accommodate his recovery needs and prevent further injury. A Toradol injection was ordered to address his acute pain symptoms more effectively. -Advised to see Dr. Meza to reassess the condition and determine further treatment, including the possibility of surgical consultation if conservative management fails. Follow-Up The patient was advised to continue avoiding work activities that may exacerbate his condition and to adhere to follow-up appointments with Dr. Meza. Regular evaluations of his condition, with attention to any progressive neurological symptoms, were emphasized. He should return for a consultation to reassess functional status and management options, particularly if pain persists or worsens. 11/02/2024 Work related injury (ICD-10 - Y99.0) 1. The patient is not currently working and he is put out of work by Dr. Villegas. He is on 100% temporary disability. WC information: I feel the current symptoms are causally related to the injury at work. The complaints are consistent with the history of the injury. The history of the injury is consistent with my objective findings. 02/10/2025 Primary insomnia (ICD-10 - F51.01) Insomnia was addressed by refilling Ambien (zolpidem) for sleep initiation, with counseling on the risks of next-day drowsiness, complex sleep behaviors (such as sleepwalking), and the potential for dependence. The patient was advised to avoid alcohol and other PROGRAM REP depressants while taking Ambien, and non-pharmacologi perry sleep hygiene strategies were reviewed, including maintaining a regular sleep schedule and limiting screen time before bedtime. This is a 59 year old male who presents today via telemed for medical management of lumbar radiculopathy, asthma, seasonal allergies, and insomnia. The patient is requesting refills of Oxycodone, Tramadol, Tizanidine, Albuterol HFA, Montelukast, and Ambien. The patient denies any side effects of the medication and states that the medications are working well. He is also requesting Toradol injection for his back pain. The patient offers no other complaint today. Denies any significant complaints of chest pain, palpitation, shortness of breath, or dizziness today. MEDICAL DECISION MAKING AND TREATMENT PLAN: The patient's chronic conditions were reviewed, and medication reconciliation was performed. The patient's request for refills of Oxycodone, Tramadol, Tizanidine, Albuterol HFA, Montelukast, and Ambien was approved, as he reported no adverse effects and good symptom control. The Prescription Monitoring Program (ROAD HOGGER OPERATOR) was reviewed to ensure safe prescribing of controlled substances. A Toradol (ketorolac) 30 mg intramuscular injection was ordered for management of chronic back pain. The patient was counseled on the risks, benefits, and potential side effects of all medications, especially controlled substances and NSAIDs. The importance of medication adherence, avoidance of polypharmacy, and monitoring for side effects or complications was emphasized. The patient was advised to follow up as scheduled or sooner if symptoms worsen or new issues arise. Refilled Oxycodone, Tramadol, Tizanidine, Albuterol HFA, Montelukast, and Ambien as requested. Ordered Toradol 30 mg IM injection for back pain. Reviewed ROAD HOGGER OPERATOR for controlled substance safety. Counseled patient on medication adherence, side effects, and risks. Advised follow-up as scheduled or sooner if symptoms change. FOLLOWUP DISCUSSION: The patient was scheduled for a follow-up appointment in one month to evaluate the effectiveness of the current treatment plan and to monitor for any side effects or complications. 01/02/2025 Herniation of lumbar intervertebral disc with radiculopathy (ICD-10 - M51.16) Plan of Care: Continued evaluation by Dr. Meza, with potential surgical consultation if indicated.Non-ph armacological strategies: Physical therapy and activity modification recommended. This is a 59-year-old male patient presenting today via telemed for a follow up on the back pain. This is a workers compensation follow up visit. The patient presents with complaints of worsening back pain. He reports that his back pain has been exacerbated by moving heavy items with the help of his son. He describes the pain as severe and persistent. He is requesting an order for a Toradol injection to be administered for back pain relief. He offers no other complaint today. Denies any significant complaints of chest pain, palpitation, shortness of breath, or dizziness today. MEDICAL DECISION MAKING The differential diagnoses include exacerbation of chronic back pain. For the severity of his back pain a Toradol injection for pain management was considered appropriate. The plan will involve considering non-opioid options for pain management and ensuring follow-up for his workers' compensation case. TREATMENT PLAN -The medical history was reviewed and discussed in great detail. -Workers compensation visit was done today. -Toradol injection was advised to be administered for back pain relief. -Recommended non-opioid pain management options, including NSAIDs and physical therapy. -Emphasized the importance of adherence to the treatment plan and the risks of non-adherence. -Discussed potential complications of untreated back pain, such as decreased mobility and quality of life. FOLLOW-UP DISCUSSION He was advised to follow up as needed to reassess his symptoms and response to treatment. He was also instructed to seek immediate medical attention if his symptoms worsen or if he experiences any new symptoms. 01/02/2025 Lumbar radiculopathy (ICD-10 - M54.16) -Reviewed and reconciled medications. -The refills were provided as requested. - ROAD HOGGER OPERATOR-I stop was reviewed with the patient today. Adv on general care back. Use heating pad, Bengay cream to back as needed. Avoid any identifying/iden tified triggers. Sleep on firm mattress. Bend from knees not back to pick pulling machine tender objects. Adv on proper lifting technique. This is a 59-year-old male patient presenting today via telemed for a follow up visit for medical management of lumbar radiculopathy, allergic asthma, and insomnia. He is requesting refills of his Oxycodone, Tramadol, Zolpidem, and Albuterol HFA. He denies any potential side effects towards the medications and reports the medications are working well. The patient has been experiencing sinus congestion for the past two weeks, characterized by sinus pressure, mucus production, and a persistent cough, particularly at night. He has been using an albuterol inhaler for relief but continues to experience significant symptoms. He is requesting a prescription for a Z-Kody for symptom management. He also mentions a recent visit to the emergency room where he was diagnosed with a viral infection and advised to rest and stay hydrated. He offers no other complaint today. Denies any significant complaints of chest pain, palpitation, shortness of breath, or dizziness today. MEDICAL DECISION MAKING His symptoms suggest a possible upper respiratory infection. The differential diagnoses include acute sinusitis, and viral upper respiratory infection. For the persistent sinus symptoms, and a Z-Kody for potential bacterial sinusitis was considered appropriate. The use of an albuterol inhaler was continued to manage his respiratory symptoms. TREATMENT PLAN -The medical history and the ongoing symptoms were reviewed and discussed in great detail. -Reviewed and reconciled medications. -The refills were provided as requested. - ROAD HOGGER OPERATOR-I stop was reviewed with the patient today. -Prescribed Zithromax Z-Kody (azithromycin) to be taken as directed. The mechanism of action, benefits, and side effects were discussed with the patient. Adherence Importance: Essential to complete the course to prevent antibiotic resistance. FOLLOW-UP DISCUSSION He was advised to follow up as needed to reassess his symptoms and response to treatment. He was also instructed to seek immediate medical attention if his symptoms worsen or if he experiences any new symptoms. 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 Discussed gastrointestinal risks of NSAIDs. Recommended exploring additional pain management and physical therapy options. This is a 59-year-old male patient presenting today via telemed for a workers compensation follow-up visit. The patient reported severe back pain related to a workers' compensation case, for which he has been awaiting approval for injections. He expressed frustration with the ongoing pain and the delay in receiving treatment. He offers no other complaint today. Denies any significant complaints of chest pain, palpitation, shortness of breath, or dizziness today. MEDICAL DECISION MAKING His back pain, related to a workers' compensation case, requires careful management, including pain relief and addressing the underlying cause. The plan will involve considering non-opioid options for pain management and ensuring follow-up for his workers' compensation case. TREATMENT PLAN -The medical history was reviewed and discussed in great detail. -Workers compensation visit was done today. -Toradol injection was advised to be administered for back pain relief. -Recommended non-opioid pain management options, including NSAIDs and physical therapy. -Emphasized the importance of adherence to the treatment plan and the risks of non-adherence. -Discussed potential complications of untreated back pain, such as decreased mobility and quality of life. FOLLOW-UP DISCUSSION He was advised to follow up as needed to assess the effectiveness of the pain management plan. He was also instructed to contact the office if his symptoms worsen or if he experiences any side effects from the new medications 12/26/2024 Essential hypertension (ICD-10 - I10) This is a 59-year-old male patient presenting today via telemed for an urgent care follow up visit. The patient presented with a persistent cough that has not improved despite previous treatments. The recent blood work done on 12/23/2024 revealed low MPV at 6.3; otherwise, unremarkable. The X-ray chest done on 12/23/2024 showed no acute pulmonary disease. He mentioned that he has been experiencing tremors, a runny nose, chest congestion, and a change in his voice. He also noted that his cough is particularly troublesome at night, preventing him from sleeping. He requested a prescription for a cough syrup, which he had used previously with some relief. Additionally, he is requesting refills of his oxycodone. He denies any potential side effects towards the medications and reports the medications are working well. He offers no other complaint today. Denies any significant complaints of chest pain, palpitation, shortness of breath, or dizziness today. MEDICAL DECISION MAKING His persistent cough, despite previous treatments and a clear X-ray, suggests a need for further evaluation and possibly a different therapeutic approach. The differential diagnoses include chronic bronchitis, post-infectiou s cough, or an allergic reaction. Given his request for oxycodone, a controlled substance, it is crucial to consider the potential for misuse and explore alternative treatments. TREATMENT PLAN -The medical history was reviewed and discussed in great detail. -Reviewed and discussed the results of diagnostics at length . -Prescribed Tussionex cough syrup to be taken half a teaspoon at bedtime as directed. The mechanism of action, benefits, and side effects were discussed with the patient. - ROAD HOGGER OPERATOR-I stop was reviewed with the patient today. -Advised on the importance of adherence to the new medication and potential side effects. -Discussed non-pharmacolo gical strategies such as using a humidifier and staying hydrated. FOLLOW-UP DISCUSSION He was advised to follow up as needed to assess the effectiveness of the new cough syrup. He was also instructed to contact the office if his symptoms worsen or if he experiences any side effects from the new medications. 12/24/2024 Pain in left leg (ICD-10 - M79.605) 12/23/2024 Work related injury (ICD-10 - Y99.0) WC information: I feel the current symptoms are causally related to the injury at work. The complaints are consistent with the history of the injury. The history of the injury is consistent with my objective findings. 1. The patient is not currently working and he is put out of work by Dr. Villegas. He is on 100% temporary disability. 2. The patient is advised to have city attorney for his Worker's Comp case as we submitted for these injections and so far we did not get the approval. 05/27/2025 Medication management (ICD-10 - Z79.899) Review [...] dependence, sedation, constipation, and respiratory depression. The ROAD HOGGER OPERATOR I-STOP was reviewed to ensure appropriate [...] times daily for chronic pain management. The ROAD HOGGER OPERATOR I-STOP was reviewed for appropriate use. [...] sooner if new symptoms or concerns arise. 03/07/2025 Vitamin D deficiency (ICD-10 - E55.9) [...] insomnia, Montelukast for allergies, and Vitamin D supplementatio n. The patient requests refills for all these [...] include lumbar disc herniation, spinal stenosis, and musculoskeleta l strain, but the chronicity and response to current therapy support the diagnosis of lumbar radiculopathy. Insomnia is likely multifactorial , possibly exacerbated by chronic pain and opioid use. Seasonal allergies are well-controlle d on Montelukast, and vitamin D deficiency is managed with supplementatio n. The patient's request for a Toradol injection was considered appropriate for acute pain exacerbation, given the lack of reported side effects and the need for multimodal pain management. Continued monitoring for opioid-related adverse effects and potential medication interactions is warranted. TREATMENT PLAN: The patient's medical history was reviewed and medications were reconciled.Ref ills for Oxycodone, Tramadol, Ambien, Montelukast, and Vitamin D were provided as the patient reported good efficacy and no adverse effects. The ROAD HOGGER OPERATOR I-STOP was reviewed to ensure appropriate use and monitoring of medication. A Toradol (ketorolac) 60 mg intramuscular injection was ordered to address acute exacerbation of back pain. The patient was counseled on the risks and benefits of opioid and NSAID use, including potential side effects, risk of dependence, gastrointestin al, renal, and cardiovascular complications, and the importance of adherence to prescribed regimens. Non-pharmacolo gical strategies such as physical therapy, stretching, and [...] monitor for any side effects or complications. 08/29/2024 Posterior tibial tendon dysfunction, right (ICD-10 - M76.821) 03/07/2025 [facility] current use of opiate analgesic (ICD-10 - [...] insomnia, Montelukast for allergies, and Vitamin D supplementatio n. The patient requests refills for all these [...] include lumbar disc herniation, spinal stenosis, and musculoskeleta l strain, but the chronicity and response to current therapy support the diagnosis of lumbar radiculopathy. Insomnia is likely multifactorial , possibly exacerbated by chronic pain and opioid use. Seasonal allergies are well-controlle d on Montelukast, and vitamin D deficiency is managed with supplementatio n. The patient's request for a Toradol injection was considered appropriate for acute pain exacerbation, given the lack of reported side effects and the need for multimodal pain management. Continued monitoring for opioid-related adverse effects and potential medication interactions is warranted. TREATMENT PLAN: The patient's medical history was reviewed and medications were reconciled.Ref ills for Oxycodone, Tramadol, Ambien, Montelukast, and Vitamin D were provided as the patient reported good efficacy and no adverse effects. The ROAD HOGGER OPERATOR I-STOP was reviewed to ensure appropriate use and monitoring of medication. A Toradol (ketorolac) 60 mg intramuscular injection was ordered to address acute exacerbation of back pain. The patient was counseled on the risks and benefits of opioid and NSAID use, including potential side effects, risk of dependence, gastrointestin al, renal, and cardiovascular complications, and the importance of adherence to prescribed regimens. Non-pharmacolo gical strategies such as physical therapy, stretching, and [...] monitor for any side effects or complications. 12/26/2024 Lower extremity edema (ICD-10 - R60.0) This is a 59-year-old male patient presenting today via telemed for an urgent care follow up visit. The patient presented with a persistent cough that has not improved despite previous treatments. The recent blood work done on 12/23/2024 revealed low MPV at 6.3; otherwise, unremarkable. The X-ray chest done on 12/23/2024 showed no acute pulmonary disease. He mentioned that he has been experiencing tremors, a runny nose, chest congestion, and a change in his voice. He also noted that his cough is particularly troublesome at night, preventing him from sleeping. He requested a prescription for a cough syrup, which he had used previously with some relief. Additionally, he is requesting refills of his oxycodone. He denies any potential side effects towards the medications and reports the medications are working well. He offers no other complaint today. Denies any significant complaints of chest pain, palpitation, shortness of breath, or dizziness today. MEDICAL DECISION MAKING His persistent cough, despite previous treatments and a clear X-ray, suggests a need for further evaluation and possibly a different therapeutic approach. The differential diagnoses include chronic bronchitis, post-infectiou s cough, or an allergic reaction. Given his request for oxycodone, a controlled substance, it is crucial to consider the potential for misuse and explore alternative treatments. TREATMENT PLAN -The medical history was reviewed and discussed in great detail. -Reviewed and discussed the results of diagnostics at length . -Prescribed Tussionex cough syrup to be taken half a teaspoon at bedtime as directed. The mechanism of action, benefits, and side effects were discussed with the patient. - ROAD HOGGER OPERATOR-I stop was reviewed with the patient today. -Advised on the importance of adherence to the new medication and potential side effects. -Discussed non-pharmacolo gical strategies such as using a humidifier and staying hydrated. FOLLOW-UP DISCUSSION He was advised to follow up as needed to assess the effectiveness of the new cough syrup. He was also instructed to contact the office if his symptoms worsen or if he experiences any side effects from the new medications. 12/26/2024 Back pain (ICD-10 - M54.9) This is a 59-year-old male patient presenting today via telemed for a workers compensation follow-up visit. The patient reported severe back pain related to a workers' compensation case, for which he has been awaiting approval for injections. He expressed frustration with the ongoing pain and the delay in receiving treatment. He offers no other complaint today. Denies any significant complaints of chest pain, palpitation, shortness of breath, or dizziness today. MEDICAL DECISION MAKING His back pain, related to a workers' compensation case, requires careful management, including pain relief and addressing the underlying cause. The plan will involve considering non-opioid options for pain management and ensuring follow-up for his workers' compensation case. TREATMENT PLAN -The medical history was reviewed and discussed in great detail. -Workers compensation visit was done today. -Toradol injection was advised to be administered for back pain relief. -Recommended non-opioid pain management options, including NSAIDs and physical therapy. -Emphasized the importance of adherence to the treatment plan and the risks of non-adherence. -Discussed potential complications of untreated back pain, such as decreased mobility and quality of life. FOLLOW-UP DISCUSSION He was advised to follow up as needed to assess the effectiveness of the pain management plan. He was also instructed to contact the office if his symptoms worsen or if he experiences any side effects from the new medications 01/02/2025 Primary insomnia (ICD-10 - F51.01) -Reviewed and reconciled medications. -The refills were provided as requested. - ROAD HOGGER OPERATOR-I stop was reviewed with the patient today. Anticipatory guidance given regarding insomnia. Sleeping tips given. Writing a journal before you go to bed. This practice clears your mind so you won''t have all those thoughts crowding your brain when you are trying to sleep. Sleep in the dark, comfortable room. Don''t sleep with a pet. Don''t drink any caffeinated beverages (like soda or iced tea) after about 3:00 in the afternoon. Don''t exercise at night. Once in bed, try peaceful mind exercises. For instance, count backwards from 100 with your eyes closed. This is a 59-year-old male patient presenting today via telemed for a follow up visit for medical management of lumbar radiculopathy, allergic asthma, and insomnia. He is requesting refills of his Oxycodone, Tramadol, Zolpidem, and Albuterol HFA. He denies any potential side effects towards the medications and reports the medications are working well. The patient has been experiencing sinus congestion for the past two weeks, characterized by sinus pressure, mucus production, and a persistent cough, particularly at night. He has been using an albuterol inhaler for relief but continues to experience significant symptoms. He is requesting a prescription for a Z-Kody for symptom management. He also mentions a recent visit to the emergency room where he was diagnosed with a viral infection and advised to rest and stay hydrated. He offers no other complaint today. Denies any significant complaints of chest pain, palpitation, shortness of breath, or dizziness today. MEDICAL DECISION MAKING His symptoms suggest a possible upper respiratory infection. The differential diagnoses include acute sinusitis, and viral upper respiratory infection. For the persistent sinus symptoms, and a Z-Kody for potential bacterial sinusitis was considered appropriate. The use of an albuterol inhaler was continued to manage his respiratory symptoms. TREATMENT PLAN -The medical history and the ongoing symptoms were reviewed and discussed in great detail. -Reviewed and reconciled medications. -The refills were provided as requested. - ROAD HOGGER OPERATOR-I stop was reviewed with the patient today. -Prescribed Zithromax Z-Kody (azithromycin) to be taken as directed. The mechanism of action, benefits, and side effects were discussed with the patient. Adherence Importance: Essential to complete the course to prevent antibiotic resistance. FOLLOW-UP DISCUSSION He was advised to follow up as needed to reassess his symptoms and response to treatment. He was also instructed to seek immediate medical attention if his symptoms worsen or if he experiences any new symptoms. 01/02/2025 Intervertebral disc disorders with radiculopathy, thoracic region (ICD-10 - M51.14) Toradol injection ordered. Discussed gastrointestinal risks of NSAIDs. Recommended exploring additional pain management and physical therapy options. This is a 59-year-old male patient presenting today via telemed for a follow up on the back pain. This is a workers compensation follow up visit. The patient presents with complaints of worsening back pain. He reports that his back pain has been exacerbated by moving heavy items with the help of his son. He describes the pain as severe and persistent. He is requesting an order for a Toradol injection to be administered for back pain relief. He offers no other complaint today. Denies any significant complaints of chest pain, palpitation, shortness of breath, or dizziness today. MEDICAL DECISION MAKING The differential diagnoses include exacerbation of chronic back pain. For the severity of his back pain a Toradol injection for pain management was considered appropriate. The plan will involve considering non-opioid options for pain management and ensuring follow-up for his workers' compensation case. TREATMENT PLAN -The medical history was reviewed and discussed in great detail. -Workers compensation visit was done today. -Toradol injection was advised to be administered for back pain relief. -Recommended non-opioid pain management options, including NSAIDs and physical therapy. -Emphasized the importance of adherence to the treatment plan and the risks of non-adherence. -Discussed potential complications of untreated back pain, such as decreased mobility and quality of life. FOLLOW-UP DISCUSSION He was advised to follow up as needed to reassess his symptoms and response to treatment. He was also instructed to seek immediate medical attention if his symptoms worsen or if he experiences any new symptoms. 02/10/2025 Other chronic pain (ICD-10 - G89.29) Continue with current medication regimen as prescribed. This is a 59 year old male who presents today via telemed for medical management of lumbar radiculopathy, asthma, seasonal allergies, and insomnia. The patient is requesting refills of Oxycodone, Tramadol, Tizanidine, Albuterol HFA, Montelukast, and Ambien. The patient denies any side effects of the medication and states that the medications are working well. He is also requesting Toradol injection for his back pain. The patient offers no other complaint today. Denies any significant complaints of chest pain, palpitation, shortness of breath, or dizziness today. MEDICAL DECISION MAKING AND TREATMENT PLAN: The patient's chronic conditions were reviewed, and medication reconciliation was performed. The patient's request for refills of Oxycodone, Tramadol, Tizanidine, Albuterol HFA, Montelukast, and Ambien was approved, as he reported no adverse effects and good symptom control. The Prescription Monitoring Program (ROAD HOGGER OPERATOR) was reviewed to ensure safe prescribing of controlled substances. A Toradol (ketorolac) 30 mg intramuscular injection was ordered for management of chronic back pain. The patient was counseled on the risks, benefits, and potential side effects of all medications, especially controlled substances and NSAIDs. The importance of medication adherence, avoidance of polypharmacy, and monitoring for side effects or complications was emphasized. The patient was advised to follow up as scheduled or sooner if symptoms worsen or new issues arise. Refilled Oxycodone, Tramadol, Tizanidine, Albuterol HFA, Montelukast, and Ambien as requested. Ordered Toradol 30 mg IM injection for back pain. Reviewed ROAD HOGGER OPERATOR for controlled substance safety. Counseled patient on medication adherence, side effects, and risks. Advised follow-up as scheduled or sooner if symptoms change. FOLLOWUP DISCUSSION: The patient was scheduled for a follow-up appointment in one month to evaluate the effectiveness of the current treatment plan and to monitor for any side effects or complications. 11/08/2024 Closed fracture of multiple ribs of right side, initial encounter (ICD-10 - S22.41XA) Plan of Care: Monitoring and pain management, possible follow-up imaging for confirmation and assessment of healing.Potentia l Side Effects: Emphasized monitoring for potential complications such as worsening pain or respiratory issues. This is a 59-year-old male patient presenting today via telemed for his workers compensation follow up visit. The patient presents with severe pain following a work-related injury. He has been deemed 100% disabled by the pain management nurse practitioner, Dr. Meza; however, he has not received the necessary documentation to submit for workman's compensation. He has not received any pain management injections, which were canceled multiple times due to lack of approval. He is experiencing significant pain and financial stress due to the inability to work and the delay in receiving compensation. The patient and his are concerned about their ability to pay rent and are seeking urgent assistance to obtain the necessary documentation and pain management. He offers no other complaint today. Denies any significant complaints of chest pain, palpitation, shortness of breath, or dizziness today. MEDICAL DECISION-SATISH Kay Differential Diagnoses Chronic pain: Persistent pain following a work-related injury. Work-related injury: Documented injury leading to disability. Disability status: Requires documentation for workman's compensation. TREATMENT PLAN -The medical history was reviewed and discussed in great detail. -The patient was provided with the necessary documentation stating his 100% disability status for the next 6 weeks to submit for workman's compensation. -He was advised to follow up with his pain management nurse practitioner, Dr. Meza. -The Toradol 30 intramuscular injection will be administered to the patient today. The patient was advised visiting the for injection administration . -The patient was counseled on the importance of adhering to his pain management plan and the risks of non-adherence, including worsening pain and potential complications. -He was also provided with information on non-pharmacolo gical pain management strategies, such as physical therapy and the use of heat/cold packs. FOLLOW-UP DISCUSSION The patient was advised to submit the disability documentation to his employer and follow up with his pain management nurse practitioner. He was instructed to monitor his pain levels and report any changes or worsening of symptoms. 11/11/2024 Lower extremity edema (ICD-10 - R60.0) 11/26/2024 Intervertebral disc disorders with radiculopathy, thoracic region (ICD-10 - M51.14) Toradol injection ordered. Discussed gastrointestinal risks of NSAIDs. Recommended exploring additional pain management and physical therapy options. The patient is a 59-year-old male presenting via telemedicine for medical management of chronic lumbar pain, associated with his worker's compensation status. He reports experiencing persistent lumbar pain for which Toradol injections have previously provided temporary relief, allowing him to perform daily activities with greater ease. His communicated on his behalf, endorsing the efficacy of this treatment. The patient requests a formal letter indicating he is 100% disabled, with his return to work date yet to be determined. He offers no other complaints today. Denies any significant complaints of chest pain, palpitations, shortness of breath, or dizziness today. Medical Decision Making and Differential Diagnoses The management strategy focused on alleviating the patient's chronic lumbar pain while considering the requirements imposed by his worker's compensation claim. The Toradol injection was considered due to its demonstrated effectiveness in providing temporary pain relief without severe side effects known in this patient. Other potential analgesic interventions considered included non-steroidal anti-inflammat ory drugs (NSAIDs) and physical rehabilitative approaches. Given the chronic nature of his pain, assessing for underlying musculoskeleta l or neurological causes was noted as a consideration for future evaluations. Treatment Plan A Toradol injection was ordered for acute pain relief, acknowledging its benefits in reducing inflammation and pain. The risk of gastrointestin al disturbances associated with NSAIDs was discussed, given the patient's medical need for long-term management options. An official letter was provided to confirm his 100% disability status for worker's compensation purposes, with [id number] timing to be determined based on future assessments. Recommended engagement with physical therapy and pain management specialists was suggested for long-term improvement of function and reduction in pain levels. Continuous monitoring of his response to treatments and regular follow-up appointments for comprehensive reassessment of his disability status were advised. Follow-Up Discussion The patient and his were advised on the importance of regular follow-up appointments to monitor pain levels and therapy effectiveness. Discussing potential alternative pain management strategies if necessary was encouraged as part of a multi-discipli nary approach. Emphasizing communication with his worker's compensation warehouse representative s and healthcare providers regarding changes in pain levels or functionality was essential to better tailor his care. 08/15/2024 Advanced care planning/henok anguiano discussion (ICD-10 - Z71.89) (History of Present Illness): The patient is a 58-year-old male who presents via telemedicine for an annual wellness visit and medication refills. The patient is opted for video call visit. He reports a history of low back pain for which he is prescribed oxycodone, and insomnia managed with Ambien. Additionally, he has asthma, which is under medical management. The patient mentions being up to date with routine blood work but is unsure about his colonoscopy status. He expresses concern about a problem with his blood work related to a previous appointment. He describes a history of playing basketball in his youth but now experiences discomfort in his left ankle, particularly after walking for 13 minutes daily, which he does as part of his routine. He notes the presence of a small bone or bump behind the left ankle, which causes mild pain after physical activity and at night. He manages this discomfort by resting his foot. The patient is concerned about the abnormality and seeks further evaluation. No chest pain, chest pressure or shortness of breath. No abdominal pain, nausea, vomiting, constipation or diarrhea. No fevers, sweats, chills or fatigue. No headaches or dizziness. No blurred or double vision. No sore throat, ear pain/popping. No change in appetite. No loss of taste or smell. Medical Decision Making: The medical decision-satish kay process involves addressing the patient's need for medication refills for oxycodone, Ambien, and asthma management. The patient's concern about the left ankle is noted, and an X-ray is recommended to evaluate the abnormality further. The patient is advised to monitor the ankle for worsening symptoms and to seek urgent care if necessary. The discussion also includes ensuring the patient follows up on his colonoscopy and any pending blood work issues. 08/29/2024 Pain in right foot (ICD-10 - M79.671) 10/01/2024 Lower extremity edema (ICD-10 - R60.0) 10/11/2024 Allergic asthma, mild intermittent, with acute exacerbation (ICD-10 - J45.21) explained that the inhaler is for daily & reglar use, not a PRN MED MAY WORSEN SYMPTOMS IF USED ASPRN ?RESCUE INHALER!!! [place] AFTER USEBECAUSE OF [place] OF [place] f/up with pulm The patient is a 59-year-old male presenting for a telemedicine consultation primarily for medical management of insomnia, asthma, and lumbar radiculopathy. He requested refills for his medications, which include Ambien for insomnia, Tramadol and Oxycodone for pain management, and Albuterol HFA for asthma. He stated that these medications have been effective in managing his conditions and he denied any known side effects from their use. Additionally, the patient requested Tessalon perles to manage a cough, which is a new symptom he presented during this visit. He also inquired about receiving Toradol injections to aid in pain relief. The patient is awaiting results for a CT scan that was performed to evaluate concerns related to his stomach. He also reported a weight gain of 15-16 pounds, possibly related to limited activity due to pain. The patient expressed concern about the pain in his lower back and its progression. He indicated feeling discomfort but no other significant issues today, such as chest pain, palpitations, shortness of breath, or dizziness. Medical Decision Making and Differential Diagnoses: For insomnia, besides primary sleeplessness, conditions such as anxiety, depression, or sleep apnea were considered. Evaluation of sleep hygiene and possibly a sleep study were areas for future consideration if symptoms persist. In lumbar radiculopathy, differentials like spinal stenosis or herniated discs need exploration, potentially through imaging if no improvement is noted. The newly reported cough could be due to a mild upper respiratory infection or could have an allergenic component. In considering chronic pain management, the possibility of opioid dependency and the necessity of assessing pain against potential medication side effects were discussed. Treatment Plan: Refills were authorized for Ambien, Tramadol, Oxycodone, and Albuterol HFA as the patient reported them effective and free from concerning side effects. Benzonatate (Tessalon perles) was prescribed to address cough symptoms, with a note to monitor for resolution of symptoms and follow up if persisting. Toradol 30 mg IM was administered for immediate pain relief, particularly for the intensified back and rib pain. The patient agreed to the importance of adhering strictly to the prescribed schedule for medications, understanding that this supports the effectiveness of treatment and helps prevent complications associated with inconsistent use, such as unmanaged pain or withdrawal symptoms. He was advised about the potential side effects of Tramadol and Oxycodone, including drowsiness, constipations, and dependence, encouraging the use of non-opioid pain relief methods when possible, such as physical therapy and heat application. Follow-up Discussion: It was recommended that the patient schedule a follow-up appointment to discuss the CT scan results when available, which might influence ongoing treatment plans or indicate the need for further testing or referrals. By the next meeting, it will also be important to reassess all current symptoms, pain management strategies, and overall medication efficacy and tolerability. The patient was advised to remain observant for any new or changing symptoms and to report these promptly to optimize care and therapeutic outcomes. 10/14/2024 Low grade fever (ICD-10 - R50.9) This is a 59-year-old male patient presenting today via telemed for management of his upper respiratory symptoms. The patient presents with symptoms suggestive of a sinus infection. The patient reports experiencing nasal congestion, yellow nasal discharge, dry eyes, and a headache localized to the forehead. These symptoms have been ongoing for the past four days. The patient denies having a sore throat but mentions occasional low-grade fever. The nasal congestion and discharge have been persistent, with the discharge initially being white and now turning yellow. The patient also reports a sensation of pressure in the head and dry, watery eyes. Additionally, the patient is requesting refills of his Azelastine nasal spray. He denies any potential side effects towards the medications and reports the medications are working well. He offers no other complaint today. Denies any significant complaints of chest pain, palpitation, shortness of breath, or dizziness today. MEDICAL DECISION-SATISH Kay Given the patient's symptoms of nasal congestion, yellow nasal discharge, headache, and dry eyes, the primary diagnosis is acute sinusitis. Differential diagnoses include acute viral upper respiratory infection and allergic rhinitis. The presence of yellow nasal discharge and headache localized to the forehead supports the diagnosis of sinusitis. The patient's use of Nasacort nasal spray suggests a history of similar episodes, which may indicate recurrent sinusitis. TREATMENT PLAN -The medical history and the ongoing symptoms were reviewed and discussed in great detail. -The treatment plan included refilling the Azelastine nasal spray. -The patient was prescribed a Zithromax Z-Kody for further management. The mechanism of action, benefits, and side effects were discussed with the patient. -The patient was advised to continue using his nasal sprays and to take the prescribed antibiotic as directed. -Ordered influenza, RSV, and COVID-19 swab tests along with PCR test to be done. FOLLOW-UP DISCUSSION He was advised to follow up if his symptoms did not improve within a few days of starting the antibiotics. He was also instructed to seek medical attention if he experienced any worsening of symptoms, such as high fever, severe headache, or difficulty breathing. The importance of completing the full course of antibiotics was emphasized to prevent recurrence and resistance. 08/15/2024 Left ankle pain (ICD-10 - M25.572) (History of Present Illness): The patient is a 58-year-old male who presents via telemedicine for an annual wellness visit and medication refills. The patient is opted for video call visit. He reports a history of low back pain for which he is prescribed oxycodone, and insomnia managed with Ambien. Additionally, he has asthma, which is under medical management. The patient mentions being up to date with routine blood work but is unsure about his colonoscopy status. He expresses concern about a problem with his blood work related to a previous appointment. He describes a history of playing basketball in his youth but now experiences discomfort in his left ankle, particularly after walking for 13 minutes daily, which he does as part of his routine. He notes the presence of a small bone or bump behind the left ankle, which causes mild pain after physical activity and at night. He manages this discomfort by resting his foot. The patient is concerned about the abnormality and seeks further evaluation. No chest pain, chest pressure or shortness of breath. No abdominal pain, nausea, vomiting, constipation or diarrhea. No fevers, sweats, chills or fatigue. No headaches or dizziness. No blurred or double vision. No sore throat, ear pain/popping. No change in appetite. No loss of taste or smell. Medical Decision Making: The medical decision-satish kay process involves addressing the patient's need for medication refills for oxycodone, Ambien, and asthma management. The patient's concern about the left ankle is noted, and an X-ray is recommended to evaluate the abnormality further. The patient is advised to monitor the ankle for worsening symptoms and to seek urgent care if necessary. The discussion also includes ensuring the patient follows up on his colonoscopy and any pending blood work issues. 11/08/2024 Herniation of lumbar intervertebral disc with radiculopathy (ICD-10 - M51.16) Plan of Care: Continued evaluation by Dr. Meza, with potential surgical consultation if indicated.Non-ph armacological strategies: Physical therapy and activity modification recommended. This is a 59-year-old male patient presenting today via telemed for his workers compensation follow up visit. The patient presents with severe pain following a work-related injury. He has been deemed 100% disabled by the pain management nurse practitioner, Dr. Meza; however, he has not received the necessary documentation to submit for workman's compensation. He has not received any pain management injections, which were canceled multiple times due to lack of approval. He is experiencing significant pain and financial stress due to the inability to work and the delay in receiving compensation. The patient and his are concerned about their ability to pay rent and are seeking urgent assistance to obtain the necessary documentation and pain management. He offers no other complaint today. Denies any significant complaints of chest pain, palpitation, shortness of breath, or dizziness today. MEDICAL DECISION-SATISH Kay Differential Diagnoses Chronic pain: Persistent pain following a work-related injury. Work-related injury: Documented injury leading to disability. Disability status: Requires documentation for workman's compensation. TREATMENT PLAN -The medical history was reviewed and discussed in great detail. -The patient was provided with the necessary documentation stating his 100% disability status for the next 6 weeks to submit for workman's compensation. -He was advised to follow up with his pain management nurse practitioner, Dr. Meza. -The Toradol 30 intramuscular injection will be administered to the patient today. The patient was advised visiting the for injection administration . -The patient was counseled on the importance of adhering to his pain management plan and the risks of non-adherence, including worsening pain and potential complications. -He was also provided with information on non-pharmacolo gical pain management strategies, such as physical therapy and the use of heat/cold packs. FOLLOW-UP DISCUSSION The patient was advised to submit the disability documentation to his employer and follow up with his pain management nurse practitioner. He was instructed to monitor his pain levels and report any changes or worsening of symptoms. 02/10/2025 [facility] current use of opiate analgesic (ICD-10 - Z79.891) The patient's chronic opioid use was documented and monitored, with the Prescription Monitoring Program (ROAD HOGGER OPERATOR) reviewed to ensure safe prescribing practices. The patient was counseled on the importance of regular follow-up, adherence to the prescribed regimen, and monitoring for signs of misuse or adverse effects. The risks of non-adherence, including withdrawal symptoms, inadequate pain control, and potential for misuse, were discussed. This is a 59 year old male who presents today via telemed for medical management of lumbar radiculopathy, asthma, seasonal allergies, and insomnia. The patient is requesting refills of Oxycodone, Tramadol, Tizanidine, Albuterol HFA, Montelukast, and Ambien. The patient denies any side effects of the medication and states that the medications are working well. He is also requesting Toradol injection for his back pain. The patient offers no other complaint today. Denies any significant complaints of chest pain, palpitation, shortness of breath, or dizziness today. MEDICAL DECISION MAKING AND TREATMENT PLAN: The patient's chronic conditions were reviewed, and medication reconciliation was performed. The patient's request for refills of Oxycodone, Tramadol, Tizanidine, Albuterol HFA, Montelukast, and Ambien was approved, as he reported no adverse effects and good symptom control. The Prescription Monitoring Program (ROAD HOGGER OPERATOR) was reviewed to ensure safe prescribing of controlled substances. A Toradol (ketorolac) 30 mg intramuscular injection was ordered for management of chronic back pain. The patient was counseled on the risks, benefits, and potential side effects of all medications, especially controlled substances and NSAIDs. The importance of medication adherence, avoidance of polypharmacy, and monitoring for side effects or complications was emphasized. The patient was advised to follow up as scheduled or sooner if symptoms worsen or new issues arise. Refilled Oxycodone, Tramadol, Tizanidine, Albuterol HFA, Montelukast, and Ambien as requested. Ordered Toradol 30 mg IM injection for back pain. Reviewed ROAD HOGGER OPERATOR for controlled substance safety. Counseled patient on medication adherence, side effects, and risks. Advised follow-up as scheduled or sooner if symptoms change. FOLLOWUP DISCUSSION: The patient was scheduled for a follow-up appointment in one month to evaluate the effectiveness of the current treatment plan and to monitor for any side effects or complications. 01/02/2025 Back pain (ICD-10 - M54.9) -Toradol injection was advised to be administered for back pain relief. -Recommended non-opioid pain management options, including NSAIDs and physical therapy. -Emphasized the importance of adherence to the treatment plan and the risks of non-adherence. -Discussed potential complications of untreated back pain, such as decreased mobility and quality of life. Side Effects: Potential gastrointestinal bleeding, renal impairment. Adherence Importance: Follow-up for pain management. Risks of Non-Adherence: Persistent pain, potential for chronic pain syndrome. Non-Pharmacologi perry Strategies: Physical therapy, heat application. This is a 59-year-old male patient presenting today via telemed for a follow up on the back pain. This is a workers compensation follow up visit. The patient presents with complaints of worsening back pain. He reports that his back pain has been exacerbated by moving heavy items with the help of his son. He describes the pain as severe and persistent. He is requesting an order for a Toradol injection to be administered for back pain relief. He offers no other complaint today. Denies any significant complaints of chest pain, palpitation, shortness of breath, or dizziness today. MEDICAL DECISION MAKING The differential diagnoses include exacerbation of chronic back pain. For the severity of his back pain a Toradol injection for pain management was considered appropriate. The plan will involve considering non-opioid options for pain management and ensuring follow-up for his workers' compensation case. TREATMENT PLAN -The medical history was reviewed and discussed in great detail. -Workers compensation visit was done today. -Toradol injection was advised to be administered for back pain relief. -Recommended non-opioid pain management options, including NSAIDs and physical therapy. -Emphasized the importance of adherence to the treatment plan and the risks of non-adherence. -Discussed potential complications of untreated back pain, such as decreased mobility and quality of life. FOLLOW-UP DISCUSSION He was advised to follow up as needed to reassess his symptoms and response to treatment. He was also instructed to seek immediate medical attention if his symptoms worsen or if he experiences any new symptoms. 01/02/2025 Allergic asthma, mild intermittent, with acute exacerbation (ICD-10 - J45.21) Plan: Continued use of albuterol inhaler. -The refills were provided as requested. Side Effects: Tachycardia, jitteriness. Adherence Importance: Prevent asthma exacerbations. Risks of Non-Adherence: Acute asthma attacks, hospitalization. Non-Pharmacologi perry Strategies: Avoidance of triggers, use of a peak flow meter. This is a 59-year-old male patient presenting today via telemed for a follow up visit for medical management of lumbar radiculopathy, allergic asthma, and insomnia. He is requesting refills of his Oxycodone, Tramadol, Zolpidem, and Albuterol HFA. He denies any potential side effects towards the medications and reports the medications are working well. The patient has been experiencing sinus congestion for the past two weeks, characterized by sinus pressure, mucus production, and a persistent cough, particularly at night. He has been using an albuterol inhaler for relief but continues to experience significant symptoms. He is requesting a prescription for a Z-Kody for symptom management. He also mentions a recent visit to the emergency room where he was diagnosed with a viral infection and advised to rest and stay hydrated. He offers no other complaint today. Denies any significant complaints of chest pain, palpitation, shortness of breath, or dizziness today. MEDICAL DECISION MAKING His symptoms suggest a possible upper respiratory infection. The differential diagnoses include acute sinusitis, and viral upper respiratory infection. For the persistent sinus symptoms, and a Z-Kody for potential bacterial sinusitis was considered appropriate. The use of an albuterol inhaler was continued to manage his respiratory symptoms. TREATMENT PLAN -The medical history and the ongoing symptoms were reviewed and discussed in great detail. -Reviewed and reconciled medications. -The refills were provided as requested. - ROAD HOGGER OPERATOR-I stop was reviewed with the patient today. -Prescribed Zithromax Z-Kody (azithromycin) to be taken as directed. The mechanism of action, benefits, and side effects were discussed with the patient. Adherence Importance: Essential to complete the course to prevent antibiotic resistance. FOLLOW-UP DISCUSSION He was advised to follow up as needed to reassess his symptoms and response to treatment. He was also instructed to seek immediate medical attention if his symptoms worsen or if he experiences any new symptoms. 12/26/2024 Obesity (BMI 30.0-34.9) (ICD-10 - E66.9) Diet teaching was provided. Advised to cut down on pasta, rice, no soda or juices. Advised consuming an apple a day and exercise 3-4 times a week. Suggested to be complaint with medications. Discussed that obesity is a risk to develop diabetes and diabetes can affect the eyes, kidneys, heart and nerves causing kidney failure, vision loss, increases risks for stroke, and finally . This is a 59-year-old male patient presenting today via telemed for an urgent care follow up visit. The patient presented with a persistent cough that has not improved despite previous treatments. The recent blood work done on 12/23/2024 revealed low MPV at 6.3; otherwise, unremarkable. The X-ray chest done on 12/23/2024 showed no acute pulmonary disease. He mentioned that he has been experiencing tremors, a runny nose, chest congestion, and a change in his voice. He also noted that his cough is particularly troublesome at night, preventing him from sleeping. He requested a prescription for a cough syrup, which he had used previously with some relief. Additionally, he is requesting refills of his oxycodone. He denies any potential side effects towards the medications and reports the medications are working well. He offers no other complaint today. Denies any significant complaints of chest pain, palpitation, shortness of breath, or dizziness today. MEDICAL DECISION MAKING His persistent cough, despite previous treatments and a clear X-ray, suggests a need for further evaluation and possibly a different therapeutic approach. The differential diagnoses include chronic bronchitis, post-infectiou s cough, or an allergic reaction. Given his request for oxycodone, a controlled substance, it is crucial to consider the potential for misuse and explore alternative treatments. TREATMENT PLAN -The medical history was reviewed and discussed in great detail. -Reviewed and discussed the results of diagnostics at length . -Prescribed Tussionex cough syrup to be taken half a teaspoon at bedtime as directed. The mechanism of action, benefits, and side effects were discussed with the patient. - ROAD HOGGER OPERATOR-I stop was reviewed with the patient today. -Advised on the importance of adherence to the new medication and potential side effects. -Discussed non-pharmacolo gical strategies such as using a humidifier and staying hydrated. FOLLOW-UP DISCUSSION He was advised to follow up as needed to assess the effectiveness of the new cough syrup. He was also instructed to contact the office if his symptoms worsen or if he experiences any side effects from the new medications. 01/02/2025 [facility] current use of opiate analgesic (ICD-10 - Z79.891) Patient made aware of drug addictive potential. Patient advised not to take medication, drink, drive or operate heavy machinery. Advised patient can from respiratory depression. Patient voiced understanding. This is a 59-year-old male patient presenting today via telemed for a follow up visit for medical management of lumbar radiculopathy, allergic asthma, and insomnia. He is requesting refills of his Oxycodone, Tramadol, Zolpidem, and Albuterol HFA. He denies any potential side effects towards the medications and reports the medications are working well. The patient has been experiencing sinus congestion for the past two weeks, characterized by sinus pressure, mucus production, and a persistent cough, particularly at night. He has been using an albuterol inhaler for relief but continues to experience significant symptoms. He is requesting a prescription for a Z-Kody for symptom management. He also mentions a recent visit to the emergency room where he was diagnosed with a viral infection and advised to rest and stay hydrated. He offers no other complaint today. Denies any significant complaints of chest pain, palpitation, shortness of breath, or dizziness today. MEDICAL DECISION MAKING His symptoms suggest a possible upper respiratory infection. The differential diagnoses include acute sinusitis, and viral upper respiratory infection. For the persistent sinus symptoms, and a Z-Kody for potential bacterial sinusitis was considered appropriate. The use of an albuterol inhaler was continued to manage his respiratory symptoms. TREATMENT PLAN -The medical history and the ongoing symptoms were reviewed and discussed in great detail. -Reviewed and reconciled medications. -The refills were provided as requested. - ROAD HOGGER OPERATOR-I stop was reviewed with the patient today. -Prescribed Zithromax Z-Kody (azithromycin) to be taken as directed. The mechanism of action, benefits, and side effects were discussed with the patient. Adherence Importance: Essential to complete the course to prevent antibiotic resistance. FOLLOW-UP DISCUSSION He was advised to follow up as needed to reassess his symptoms and response to treatment. He was also instructed to seek immediate medical attention if his symptoms worsen or if he experiences any new symptoms. 11/08/2024 Intervertebral disc disorders with radiculopathy, thoracic region (ICD-10 - M51.14) Plan of Care: Ongoing monitoring and referral to management specialist if surgery becomes necessary.Non-ph armacological strategies: Maintain a regimen of therapeutic exercise and posture correction. This is a 59-year-old male patient presenting today via telemed for his workers compensation follow up visit. The patient presents with severe pain following a work-related injury. He has been deemed 100% disabled by the pain management nurse practitioner, Dr. Meza; however, he has not received the necessary documentation to submit for workman's compensation. He has not received any pain management injections, which were canceled multiple times due to lack of approval. He is experiencing significant pain and financial stress due to the inability to work and the delay in receiving compensation. The patient and his are concerned about their ability to pay rent and are seeking urgent assistance to obtain the necessary documentation and pain management. He offers no other complaint today. Denies any significant complaints of chest pain, palpitation, shortness of breath, or dizziness today. MEDICAL DECISION-SATISH Kay Differential Diagnoses Chronic pain: Persistent pain following a work-related injury. Work-related injury: Documented injury leading to disability. Disability status: Requires documentation for workman's compensation. TREATMENT PLAN -The medical history was reviewed and discussed in great detail. -The patient was provided with the necessary documentation stating his 100% disability status for the next 6 weeks to submit for workman's compensation. -He was advised to follow up with his pain management nurse practitioner, Dr. Meza. -The Toradol 30 intramuscular injection will be administered to the patient today. The patient was advised visiting the for injection administration . -The patient was counseled on the importance of adhering to his pain management plan and the risks of non-adherence, including worsening pain and potential complications. -He was also provided with information on non-pharmacolo gical pain management strategies, such as physical therapy and the use of heat/cold packs. FOLLOW-UP DISCUSSION The patient was advised to submit the disability documentation to his employer and follow up with his pain management nurse practitioner. He was instructed to monitor his pain levels and report any changes or worsening of symptoms. 06/03/2024 Other By signing my name below, Stu Rosales attest that this documentation has been prepared under the direction and in the presence of Bebeto Villegas MD I, Rajan Gulati personally performed the services described in this documentation. All medical record entries made by the scribe were at my direction and in my presence. I have reviewed the chart and discharge instructions and agree that the record reflects my personal performance and is accurate and completed. Electronically Signed: Bebeto Villegas MD By signing my name below, Syeda Rosales attest that this documentation has been supervised by me under the direction and in the presence of Bebeto Villegas MD Electronically Signed: Syeda Roe The patient is a 58 year old male who presents today via telemed for medical management of lumbar pain. The patient is requesting refills of Oxycodone. The patient denies any side effects of the medication and states that the medications are working well. Additionally, the patient specifically requests Toradol injection for his back pain. The patient offers no other complaint today. Denies any significant complaints of chest pain, palpitation, shortness of breath, or dizziness today. MEDICAL DECISION MAKING: The patient's effective response to Oxycodone suggests that the pain may have a significant nociceptive component. However, the long-term use of opioids necessitates careful consideration of potential side effects, dependency, and the need for ongoing monitoring. TREATMENT PLAN: The patient's requested medication was refilled today. I-STOP was reviewed to ensure appropriate use and monitoring of medication. The patient was advised to continue his current Oxycodone regimen, given its effectiveness and lack of side effects. The patient was also scheduled to receive a Toradol shot for his back pain. The importance of adherence to the prescribed medication regimen was emphasized, along with the risks and complications associated with non-adherence. FOLLOWUP DISCUSSION: The patient was advised to schedule a follow-up appointment in 1 month to reassess the effectiveness of the current treatment regimen and to monitor for any potential side effects. 06/17/2024 Other By signing my name below, Stu Rosales attest that this documentation has been prepared under the direction and in the presence of Bebeto Villegas MD I, Rajan Gulati personally performed the services described in this documentation. All medical record entries made by the scribe were at my direction and in my presence. I have reviewed the chart and discharge instructions and agree that the record reflects my personal performance and is accurate and completed. Electronically Signed: Bebeto Villegas MD By signing my name below, Syeda Rosales, attfrank that this documentation has been supervised by me under the direction and in the presence of Bebeto Villegas MD Electronically Signed: Syeda Roe The patient is a 58 year old male who presents today via telemed for medical management of lumbar disc disorder, chronic pain, and primary insomnia. The patient is requesting refills of Tramadol, Tizanidine, Ambien, and Oxycodone. The patient denies any side effects of the medication and states that the medications are working well. The patient offers no other complaint today. Denies any significant complaints of chest pain, palpitation, shortness of breath, or dizziness today. MEDICAL DECISION MAKING: The patient's lumbar disc disorder and chronic pain are currently managed with Tramadol and Oxycodone, while Tizanidine is used for muscle spasms. Ambien is prescribed for primary insomnia. Given the patient's report of effective symptom management and absence of side effects, continuation of the current medication regimen is reasonable. TREATMENT PLAN: The patient's requested medications were refilled today. I-STOP was reviewed to ensure appropriate use and monitoring of medication. The patient's current medications were continued as they reported effective symptom management without side effects. The importance of adherence to the prescribed regimen was emphasized, along with the risks and complications of non-adherence. Potential interactions with other medications or substances were reviewed. FOLLOWUP DISCUSSION: The patient was advised to schedule a follow-up appointment in 1 month to reassess the effectiveness of the current treatment regimen and to monitor for any potential side effects. 06/25/2024 Other By signing my name below, Trudy Rosales, attfrank that this documentation has been prepared under the direction and in the presence of Bebeto Villegas MD I, Rajan Gulati personally performed the services described in this documentation. All medical record entries made by the scribe were at my direction and in my presence. I have reviewed the chart and discharge instructions and agree that the record reflects my personal performance and is accurate and completed. Electronically Signed: Bebeto Villegas MD By signing my name below, Syeda Rosales attest that this documentation has been prepared under my supervision and the direction and presence of Bebeto Villegas MD Electronically Signed: Syeda Roe This is a 58-year-old male patient presenting today via telemed for medical management of back pain. The history was obtained through his . The patient complains of severe back pain radiating to the neck and head. He reports hearing noises and experiencing significant discomfort. He offers no other complaint today. Denies any significant complaints of chest pain, palpitation, shortness of breath, or dizziness today. MEDICAL DECISION-SATISH Kay His symptoms suggest chronic back pain, which may be related to musculoskeleta l issues or other systemic conditions. A Toradol shot was recommended for immediate pain relief, and a referral to urgent care was made for further evaluation. TREATMENT PLAN -The medical history was reviewed and discussed in great detail. -He was advised to go to urgent care for a Toradol shot to manage his back pain. -He was referred to urgent care for further evaluation to determine the underlying cause of his symptoms. -The importance of adherence to the treatment plan was emphasized to ensure effective pain management and to avoid complications. FOLLOW-UP DISCUSSION He was scheduled for a follow-up appointment to review the results of his evaluation at urgent care. 07/01/2024 Other By signing my name below, Connie Stusully Montes, attest that this documentation has been prepared under the direction and in the presence of Bebeto Villegas MD I, Rajan Gulati personally performed the services described in this documentation. All medical record entries made by the scribe were at my direction and in my presence. I have reviewed the chart and discharge instructions and agree that the record reflects my personal performance and is accurate and completed. Electronically Signed: Bebeto Villegas MD By signing my name below, Syeda Rosales attest that this documentation has been supervised by me under the direction and in the presence of Bebeto Villegas MD Electronically Signed: Syeda Roe The patient is a 58 year old male who presents today via telemed for medical management of lumbar disc disorder and back pain. The patient is requesting refills of Oxycodone. The patient denies any side effects of the medication and states that the medications are working well. The patient also requested a Toradol injection for additional pain management. The patient offers no other complaint today. Denies any significant complaints of chest pain, palpitation, shortness of breath, or dizziness today. MEDICAL DECISION MAKING: The medical decision-makin g process for this patient involved evaluating the effectiveness and safety of the current pain management regimen for lumbar disc disorder and chronic back pain. The patient reported that Oxycodone was effective without side effects, warranting a continuation of the current dosage. The decision to prescribe a Toradol injection was made to provide additional acute pain relief, considering the patient's ongoing discomfort. TREATMENT PLAN: The patient's requested medications were refilled today. I-STOP was reviewed to ensure appropriate use and monitoring of medication. The patient was advised to continue Oxycodone for pain management. The dosage was maintained as previously prescribed due to its effectiveness and lack of reported side effects. Also, ordered a Toradol injection for acute pain relief. The patient was advised on the potential side effects of Toradol, including gastrointestin al upset and renal effects. FOLLOWUP DISCUSSION: The patient was advised to follow up if symptoms persist or worsen. A follow-up appointment was recommended in 4 weeks to reassess pain management. 07/02/2024 Other By signing my name below, Gabino Rosales, attfrank that this documentation has been prepared under the direction and in the presence of Bebeto Villegas MD I, Rajan Gulati personally performed the services described in this documentation. All medical record entries made by the scribe were at my direction and in my presence. I have reviewed the chart and discharge instructions and agree that the record reflects my personal performance and is accurate and completed. Electronically Signed: Bebeto Villegas MD By signing my name below, Syeda Rosales, felix that this documentation has been supervised by me under the direction and in the presence of Bebeto Villegas MD Electronically Signed: Syeda Roe MEDICAL DECISION MAKING AND TREATMENT PLAN: The patient's medical history was reviewed, and medications were reconciled. A prior authorization for oxycodone was initiated. An x-ray of the left hand was ordered to evaluate the cause of the pain. The patient was advised to follow up with the results of the x-ray. If the pain persists or worsens acutely, he was instructed to visit urgent care. - Initiated prior authorization for oxycodone. - Ordered x-ray of the left hand. - Advised follow-up with x-ray results. - Advised to visit urgent care if pain worsens. 07/05/2024 Other By signing my name below, Stu Rosales, attest that this documentation has been prepared under the direction and in the presence of Bebeto Villegas MD I, Rajan Gulati personally performed the services described in this documentation. All medical record entries made by the scribe were at my direction and in my presence. I have reviewed the chart and discharge instructions and agree that the record reflects my personal performance and is accurate and completed. Electronically Signed: Bebeto Villegas MD By signing my name below, Luisito Rosalesnasim Roe, attest that this documentation has been supervised by me under the direction and in the presence of Bebeto Villegas MD Electronically Signed: Syeda Roe The patient is a 58 year old male who presents today via telemed to discuss x-ray results. His X-ray of left hand done on 07/02/2024 showed hypothenar- like foreign bodies. Otherwise, unremarkable. The patient recalls a childhood incident involving metal, which may explain the presence of foreign bodies. He reports experiencing significant pain in the area, particularly with movement. The patient offers no other complaint today. Denies any significant complaints of chest pain, palpitation, shortness of breath, or dizziness today. MEDICAL DECISION MAKING: The presence of foreign bodies in the hand, as indicated by the X-ray, suggests a retained metallic object from a previous injury. Differential diagnoses could include chronic granuloma formation or infection due to the foreign body. The pain experienced by the patient is likely secondary to the foreign body, but other causes such as arthritis or tendinitis should be considered if symptoms persist after foreign body removal. TREATMENT PLAN: The patient was referred to a hand specialist for further evaluation and management of the foreign body in the left hand. The specialist will assess the need for surgical removal of the foreign body and address the associated pain. The patient was advised to monitor for signs of infection, such as increased redness, swelling, or fever, and to seek immediate medical attention if these occur. FOLLOWUP DISCUSSION: The patient was instructed to follow up with the hand specialist as scheduled. It was emphasized that adherence to the specialist's recommendation s is crucial to prevent complications such as infection or chronic pain. 07/26/2024 Other By signing my name below, IGabino, attest that this documentation has been prepared under the direction and in the presence of Bebeto Villegas MD I, Rajan Gulati personally performed the services described in this documentation. All medical record entries made by the scribe were at my direction and in my presence. I have reviewed the chart and discharge instructions and agree that the record reflects my personal performance and is accurate and completed. Electronically Signed: Bebeto Villegas MD By signing my name below, Syeda Rosales attest that this documentation has been supervised by me under the direction and in the presence of Bebeto Villegas MD Electronically Signed: Syeda Roe MEDICAL DECISION MAKING AND TREATMENT PLAN: The patient's medical history was reviewed, and his medications were reconciled. The patient was prescribed Tessalon Perles 100 mg to be taken three times daily for 7 days to manage his cough. The potential side effects of Tessalon Perles, including drowsiness, dizziness, and gastrointestin al upset, were discussed in detail. Given that the patient's cough is likely due to his allergic asthma, Trelegy Ellipta inhaler was also prescribed to be used once daily. The potential side effects of Trelegy Ellipta, including oral thrush, hoarseness, and increased risk of pneumonia, were discussed in detail. The requested refills for Tramadol, Montelukast, and Zolpidem were processed. The ROAD HOGGER OPERATOR I-STOP was reviewed with the patient during the visit. The patient was advised to follow up in one month or sooner if any need arises. - Prescribed Tessalon Perles for cough. - Prescribed Trelegy Ellipta inhaler. - Processed refills for Tramadol, Montelukast, and Zolpidem. - Reviewed ROAD HOGGER OPERATOR I-STOP. - Follow up in one month. 07/29/2024 Other By signing my name below, Stu Rosales, attest that this documentation has been prepared under the direction and in the presence of Bebeto Villegas MD I, Rajan Gulati personally performed the services described in this documentation. All medical record entries made by the scribe were at my direction and in my presence. I have reviewed the chart and discharge instructions and agree that the record reflects my personal performance and is accurate and completed. Electronically Signed: Bebeto Villegas MD By signing my name below, ISyeda, attfrank that this documentation has been supervised by me under the direction and in the presence of Bebeto Villegas MD Electronically Signed: Syeda Roe The patient is a 58-year-old male who presents via telemedicine for the management of a persistent cough. He reports that he was previously prescribed Tessalon Perles (benzonatate) for his cough, but he encountered issues with insurance coverage, making it financially burdensome. The patient is seeking an alternative medication to manage his cough effectively. Additionally, he is requesting a Toradol (ketorolac) injection for pain management. The patient offers no other complaint today. Denies any significant complaints of chest pain, palpitation, shortness of breath, or dizziness today. MEDICAL DECISION MAKING: Given the patient's history and the need for an alternative to Tessalon Perles, the decision was made to prescribe Tussionex (hydrocodone and chlorphenirami ne) for cough management. The patient's request for a Toradol injection was also considered, and a 30 mg intramuscular dose was ordered. TREATMENT PLAN: The patient was prescribed Tussionex for cough management. I-STOP was reviewed to ensure appropriate use and monitoring of medication. Tussionex is a combination of hydrocodone, an opioid cough suppressant, and chlorphenirami ne, an antihistamine. The patient was advised on the potential side effects, including drowsiness, dizziness, constipation, and the risk of dependency associated with hydrocodone. For pain management, a 30 mg intramuscular injection of Toradol (ketorolac) was ordered. The patient was informed about the potential side effects of Toradol, including gastrointestin al upset, risk of bleeding, and renal impairment. FOLLOWUP DISCUSSION: The patient was scheduled for a follow-up appointment in one month to evaluate the effectiveness of the current treatment plan and to monitor for any side effects or complications. 08/02/2024 Other By signing my name below, Gabino Rosales, attest that this documentation has been prepared under the direction and in the presence of Bebeto Villegas MD I, Rajan Gulati personally performed the services described in this documentation. All medical record entries made by the scribe were at my direction and in my presence. I have reviewed the chart and discharge instructions and agree that the record reflects my personal performance and is accurate and completed. Electronically Signed: Bebeto Villegas MD By signing my name below, Syeda Rosales attest that this documentation has been supervised by me under the direction and in the presence of Bebeto Villegas MD Electronically Signed: Syeda Roe MEDICAL DECISION MAKING AND TREATMENT PLAN: The patient's medical history was reviewed, and medications were reconciled. Given the nature of the fall and the reported symptoms, an x-ray of the lumbar spine and left elbow was ordered to assess for any fractures or other injuries. The patient was referred to Urgent Care at the [facility] for further evaluation and to complete a workers' compensation report. For ongoing pain management, an order for Toradol 60 mg IM was placed. The potential side effects of Toradol, including gastrointestin al upset, kidney function impairment, and increased risk of bleeding, were discussed with the patient. Follow-up was recommended in one week to reassess the patient's condition and adjust the treatment plan as necessary. - Ordered x-ray lumbar spine. - Ordered x-ray left elbow. - Referred to Urgent Care. - Prescribed Toradol 60 mg IM. - Follow-up in one week. 08/02/2024 Other By signing my name below, Gabino Rosales, attest that this documentation has been prepared under the direction and in the presence of Bebeto Villegas MD I, Rajan Gulati personally performed the services described in this documentation. All medical record entries made by the scribe were at my direction and in my presence. I have reviewed the chart and discharge instructions and agree that the record reflects my personal performance and is accurate and completed. Electronically Signed: Bebeto Villegas MD By signing my name below, Syeda Rosales attest that this documentation has been supervised by me under the direction and in the presence of Bebeto Villegas MD Electronically Signed: Syeda Roe MEDICAL DECISION MAKING AND TREATMENT PLAN: The patient's medical history was reviewed, and medications were reconciled. Given the presentation of a rash between the thighs, the diagnosis of intertrigo was made. Nystatin powder was prescribed to be applied to the affected area twice daily for 10 days. The potential side effects of nystatin, including skin irritation and allergic reactions, were discussed in detail with the patient. The importance of adherence to the treatment regimen was emphasized to ensure effective resolution of the rash. The risks and complications of non-adherence, such as persistent or worsening rash and potential secondary infections, were explained. The patient was advised to keep the affected area clean and dry to prevent further irritation and promote healing. Additionally, the patient was recommended to wear loose-fitting clothing to reduce friction and moisture buildup. Follow-up was recommended if the rash does not improve or if any new symptoms develop. - Prescribed nystatin powder bid x10 days. - Discussed potential side effects. - Emphasized adherence importance. - Explained non-adherence risks. - Advised keeping area dry. - Recommended loose clothing. 08/15/2024 Other Please understand that telemedicine-bas ed services may not be as complete as cvlt-ul-pcos services. If your Provider believes you would be better served by another form of medical services (e.g. face to face services) you will be asked to make a [id number] appointment. There are potential risks and benefits associated with any form of medical treatment. You may expect the anticipated benefits from the use of telemedicine in your care, but no results can be guaranteed or assured. Scribed for Hiram SLAUGHTER by Hars[facility] Scribe. All medical record entries made by the Scribe were at my direction and personally dictated by me. I have reviewed the chart and agree that the record accurately reflects my personal performance of the history, physical exam, medical decision-making, and instructions for this patient. I have also personally directed, reviewed, and agree with the patient's education and plan. (History of Present Illness): The patient is a 58-year-old male who presents via telemedicine for an annual wellness visit and medication refills. The patient is opted for video call visit. He reports a history of low back pain for which he is prescribed oxycodone, and insomnia managed with Ambien. Additionally, he has asthma, which is under medical management. The patient mentions being up to date with routine blood work but is unsure about his colonoscopy status. He expresses concern about a problem with his blood work related to a previous appointment. He describes a history of playing basketball in his youth but now experiences discomfort in his left ankle, particularly after walking for 13 minutes daily, which he does as part of his routine. He notes the presence of a small bone or bump behind the left ankle, which causes mild pain after physical activity and at night. He manages this discomfort by resting his foot. The patient is concerned about the abnormality and seeks further evaluation. No chest pain, chest pressure or shortness of breath. No abdominal pain, nausea, vomiting, constipation or diarrhea. No fevers, sweats, chills or fatigue. No headaches or dizziness. No blurred or double vision. No sore throat, ear pain/popping. No change in appetite. No loss of taste or smell. Medical Decision Making: The medical decision-makethan g process involves addressing the patient's need for medication refills for oxycodone, Ambien, and asthma management. The patient's concern about the left ankle is noted, and an X-ray is recommended to evaluate the abnormality further. The patient is advised to monitor the ankle for worsening symptoms and to seek urgent care if necessary. The discussion also includes ensuring the patient follows up on his colonoscopy and any pending blood work issues. 08/26/2024 Other By signing my name below, Stu Rosales, attfrank that this documentation has been prepared under the direction and in the presence of Bebeto Villegas MD I, Rajan Gulati personally performed the services described in this documentation. All medical record entries made by the scribe were at my direction and in my presence. I have reviewed the chart and discharge instructions and agree that the record reflects my personal performance and is accurate and completed. Electronically Signed: Bebeto Villegas MD By signing my name below, Syeda Rosales, felix that this documentation has been supervised by me under the direction and in the presence of Bebeto Villegas MD Electronically Signed: Syeda Roe The patient is a 58 year old male who presents today via telemed for medical management of lumbar disc disorder. The patient is requesting refills of Tramadol. The patient denies any side effects of the medication and states that the medications are working well. The patient offers no other complaint today. Denies any significant complaints of chest pain, palpitation, shortness of breath, or dizziness today. MEDICAL DECISION MAKING: Given the effectiveness of Tramadol in managing his symptoms and the absence of side effects, it is reasonable to continue this medication. However, it is important to consider the potential for dependence and the need for regular monitoring. Differential diagnoses for chronic lower back pain include lumbar spondylosis, spinal stenosis, and musculoskeleta l strain, but the patient's history and response to treatment support the current diagnosis. TREATMENT PLAN: The patient's requested medication was refilled today. I-STOP was reviewed to ensure appropriate use and monitoring of medication. The patient was advised to continue taking Tramadol as prescribed for the management of his lumbar disc disorder. The importance of adherence to the prescribed regimen was emphasized, along with the risks and complications associated with non-adherence, such as uncontrolled pain and potential worsening of the condition. FOLLOWUP DISCUSSION: The patient was scheduled for a follow-up appointment in one month to evaluate the effectiveness of the current treatment plan and to monitor for any side effects or complications. 08/29/2024 Other Today's treatment consisted of trigger point injection delivered into medial aspect of the navicular area. The injection consisted of 0.5 cc of 2% lidocaine plain, 0.5 cc of 0.25 bupivacaine plain, 0.25 cc of dexamethasone and 0.25 cc of betamethasone. After the injection was given where 0.2 cc was not administered, the area was palpated, the patient reports improvement of pain and the patient exiting the encounter reporting improvement as well. Also, we discussed custom orthotic device to the patient to manage his pes planus deformity. He will check the insurance company to see if they are covered. If not, the patient very possibly will get casted for the orthotic device at future encounter as well and he is to return in one month for follow up care. 09/02/2024 Other By signing my name below, I, Beth Marshall, attest that this documentation has been prepared under the direction and in the presence of Bebeto Villegas MD I, Rajan Gulati personally performed the services described in this documentation. All medical record entries made by the scribe were at my direction and in my presence. I have reviewed the chart and discharge instructions and agree that the record reflects my personal performance and is accurate and completed. Electronically Signed: Bebeto Villegas MD By signing my name below, Syeda Rosales, attfrank that this documentation has been supervised by me under the direction and in the presence of Bebeto Villegas MD Electronically Signed: Syeda Roe This is a 58-year-old male patient presenting today via telemed for medical management of low back pain. He reports that his tramadol prescription requires a [facility]. He reports generalized body pain and requests a vitamin B12 injection, which he has received in the past, usually for 6 months. He is requesting Toradol injections for pain relief. He offers no other complaint today. Denies any significant complaints of chest pain, palpitations, shortness of breath, or dizziness today. Medical Decision-Satish kay: Tino's chronic pain warrants ongoing management. Toradol injections were deemed appropriate for short-term pain relief. His request for vitamin B12 injections suggests a possible deficiency, which should be further evaluated. The need for prior authorization for tramadol will be addressed. Treatment Plan: Toradol 30 mg IM injection was ordered. A vitamin B12 injection was ordered, with a plan for monthly injections for six months. Folic acid 1 mg daily was prescribed. The need for prior authorization for tramadol will be addressed with the [facility]. Follow-up Discussion: Tino should follow up with his primary care physician and marketing information analyst, Dr. Preciado, to discuss long-term pain management strategies and assess for vitamin B12 deficiency. He should report any worsening or new symptoms. 09/13/2024 Other By signing my name below, Gabino Rosales, attfrank that this documentation has been prepared under the direction and in the presence of Bebeto Villegas MD I, Rajan Gulati personally performed the services described in this documentation. All medical record entries made by the scribe were at my direction and in my presence. I have reviewed the chart and discharge instructions and agree that the record reflects my personal performance and is accurate and completed. Electronically Signed: Bebeto Villegas MD By signing my name below, Syeda Rosales, felix that this documentation has been supervised by me under the direction and in the presence of Bebeto Villegas MD Electronically Signed: Syeda Roe MEDICAL DECISION MAKING AND TREATMENT PLAN: The patient's medical history was reviewed, and medications were reconciled. Given the patient's symptoms and the mechanism of injury, a possible rib fracture is a primary concern. The patient was referred to Urgent Care for an in-person evaluation to ensure a thorough physical examination and appropriate imaging studies. Orders for chest and rib x-rays were placed to rule out any fractures. Additionally, an order for a Toradol injection 30 mg IM was placed to manage acute pain. The patient was advised to follow up in one month or sooner if needed. - Referred to Urgent Care for evaluation. - Ordered chest and rib x-rays. - Ordered Toradol injection 30 mg IM. - Follow up in one month. 09/13/2024 Other By signing my name below, Gabino Rosales, felix that this documentation has been prepared under the direction and in the presence of Bebeto Villegas MD I, Rajan Gulati personally performed the services described in this documentation. All medical record entries made by the scribe were at my direction and in my presence. I have reviewed the chart and discharge instructions and agree that the record reflects my personal performance and is accurate and completed. Electronically Signed: Bebeto Villegas MD By signing my name below, Syeda Rosales attest that this documentation has been supervised by me under the direction and in the presence of Bebeto Villegas MD Electronically Signed: Syeda Roe MEDICAL DECISION MAKING AND TREATMENT PLAN: The patient's medical history was reviewed, and medications were reconciled. The patient was advised to refill his oxycodone 5 mg for chronic pain management. The ROAD HOGGER OPERATOR I-STOP was reviewed with the patient during the visit. The patient was advised to follow up in one month or sooner if needed. - Refilled oxycodone. - Monitor for side effects. - Follow up in one month. 09/16/2024 Other By signing my name below, Beth Rosales attest that this documentation has been prepared under the direction and in the presence of Bebeto Villegas MD I, Rajan Gulati personally performed the services described in this documentation. All medical record entries made by the scribe were at my direction and in my presence. I have reviewed the chart and discharge instructions and agree that the record reflects my personal performance and is accurate and completed. Electronically Signed: Bebeto Villegas MD By signing my name below, Syeda Rosales attfrank that this documentation has been supervised by me under the direction and in the presence of Bebeto Villegas MD Electronically Signed: Syeda Raaspen This is a 58-year-old male patient presenting today via telemed for medical management of chronic pain. He is requesting refills of his tizanidine. He denies any potential side effects towards the medications and reports the medications are working well. CT abdomen/pelvis done on 09/13 showed Scoliosis of the lower thoracic and lumbar spine. He offers no other complaint today. Denies any significant complaints of chest pain, palpitation, shortness of breath, or dizziness today. Medical Decision Making: Chronic Pain: continued management of pain with tizanidine was appropriate. Consideration of additional pain management strategies, including potential corticosteroid injections and physical therapy, was recommended. Treatment Plan: Refills for tizanidine were approved. Referred to Dr. Shipman in orthopedics for scoliosis. Follow-up Discussion: The patient was instructed to schedule follow-up visits as necessary and maintain open communication with healthcare providers to ensure adequate pain management. 09/16/2024 Other By signing my name below, Beth Rosales, attfrank that this documentation has been prepared under the direction and in the presence of Bebeto Villegas MD IBebeto personally performed the services described in this documentation. All medical record entries made by the scribe were at my direction and in my presence. I have reviewed the chart and discharge instructions and agree that the record reflects my personal performance and is accurate and completed. 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 He reports slipping and falling while descending stairs, landing on his side, and hearing a crack on the right side of his ribcage. A subsequent CAT scan revealed nondisplaced fractures of the right posterior 11th and 12th ribs, as well as a nondisplaced fracture of the right transverse process of L1. He experiences pain with deep breathing and difficulty moving his torso due to this pain. He offers no other complaint today and denies any significant complaints of chest pain, palpitations, shortness of breath, or dizziness. Medical Decision Making: Fractures of Right Ribs and L1 Transverse Process: The primary concern is effective pain management and ensuring proper healing. Given the location of the fractures, the patient is likely experiencing significant discomfort affecting respiratory function and mobility. Continued coordinated care with Dr. Meza is critical, particularly to manage pain and monitor healing progress. Referral to pain management may offer relief through potential interventions like nerve blocks or targeted injections. Treatment Plan: Patient was advised to continue follow-up with Dr. Meza. K[facility]ST[facility] paperwork was facilitated for a planned recovery period of one month, allowing for re-evaluation as necessary for extended leave. Pain management strategies, possibly including nerve blocks, should be discussed with the specialist to aid in recovery and enhance comfort. Patient was also informed about the importance of ensuring appropriate movement within tolerable limits to prevent complications such as pneumonia from immobility. Coordination with workman's compensation for financial support during recovery was highlighted. Follow-up Discussion: The patient will remain under Dr. Meza's care and has been advised to keep all follow-up appointments. An appointment with pain management was recommended to evaluate additional pain control options. The importance of monitoring for any symptoms such as increased pain, fever, or difficulty breathing was emphasized, and urgent care was suggested if symptoms worsen. Continued communication with his employer and workman's compensation to manage leave and ensure a safe return to work is necessary. 09/19/2024 Other By signing my name below, Stu Rosales, attest that this documentation has been prepared under the direction and in the presence of Bebeto Villegas MD I, Rajan Gulati personally performed the services described in this documentation. All medical record entries made by the scribe were at my direction and in my presence. I have reviewed the chart and discharge instructions and agree that the record reflects my personal performance and is accurate and completed. Electronically Signed: Bebeto Villegas MD By signing my name below, Syeda Rosales, attest that this documentation has been supervised by me under the direction and in the presence of Bebeto Villeags MD Electronically Signed: Syeda Roe The patient is a 58-year-old male who presents via telemedicine with complaints of acute rib pain. This visit is a part of the worker's compensation case. The pain has been severe enough to cause difficulty walking. The patient has requested a Toradol injection for pain relief. The patient offers no other complaint today. Denies any significant complaints of chest pain, palpitation, shortness of breath, or dizziness today. MEDICAL DECISION MAKING: The patient's acute rib pain could be due to several potential causes, including musculoskeleta l strain, rib fracture, or pleuritic pain. Given the severity of the pain and its impact on mobility, a thorough evaluation is necessary. The patient's request for a Toradol injection is reasonable for acute pain management, but it is important to consider the potential side effects and contraindicati ons of NSAIDs. TREATMENT PLAN: Ordered a Toradol (ketorolac) injection, 60 mg intramuscularl y, as requested. Ketorolac is a nonsteroidal anti-inflammat ory drug (NSAID) that is effective for short-term management of moderate to severe pain. The patient was advised about the potential side effects of ketorolac, including gastrointestin al bleeding, renal impairment, and cardiovascular risks. FOLLOWUP DISCUSSION: The patient was scheduled for a follow-up appointment in one month to evaluate the effectiveness of the current treatment plan and to monitor for any side effects or complications. 09/26/2024 Other By signing my name below, Gabino Rosales, attfrank that this documentation has been prepared under the direction and in the presence of Bebeto Villegas MD I, Rajan Gulati personally performed the services described in this documentation. All medical record entries made by the scribe were at my direction and in my presence. I have reviewed the chart and discharge instructions and agree that the record reflects my personal performance and is accurate and completed. Electronically Signed: Bebeto Villegas MD By signing my name below, Syeda Rosales, attfrank that this documentation has been supervised by me under the direction and in the presence of Bebeto Villegas MD Electronically Signed: Syeda Roe MEDICAL DECISION MAKING AND TREATMENT PLAN: The patient's medical history was reviewed, and medications were reconciled. A refill for Tramadol was provided, and the [employer] I-STOP was reviewed with the patient during the visit. A Toradol IM injection of 60 mg was ordered to manage his acute pain. The patient was referred to Dr. Johnson for further evaluation and management of his orthopedic issues. - Refilled Tramadol. - Ordered Toradol IM injection. - Referred to Dr. Johnson. 09/26/2024 Other By signing my name below, Gabino Rosales, attest that this documentation has been prepared under the direction and in the presence of Bebeto Villegas MD I, Rajan Gulati personally performed the services described in this documentation. All medical record entries made by the scribe were at my direction and in my presence. I have reviewed the chart and discharge instructions and agree that the record reflects my personal performance and is accurate and completed. Electronically Signed: Bebeto Villegas MD By signing my name below, Syeda Rosales attest that this documentation has been supervised by me under the direction and in the presence of Bebeto Villegas MD Electronically Signed: Syeda Roe MEDICAL DECISION MAKING AND TREATMENT PLAN: The patient's medical history was reviewed, and medications were reconciled. Given the ongoing symptoms of chest pain and headache, the appointment with Dr. Traore will be expedited to ensure timely evaluation and management. The patient was advised to keep the scheduled appointment with Dr. Schulte for further assessment and treatment. - Expedite appointment with Dr. Traore. - Keep appointment with Dr. Schulte. 10/11/2024 Other By signing my name below, Beth Rosales, felix that this documentation has been prepared under the direction and in the presence of Bebeto Villegas MD I, Rajan Gulati personally performed the services described in this documentation. All medical record entries made by the scribe were at my direction and in my presence. I have reviewed the chart and discharge instructions and agree that the record reflects my personal performance and is accurate and completed. Electronically Signed: Bebeto Villegas MD By signing my name below, Syeda Rosales attest that this documentation has been supervised by me under the direction and in the presence of Bebeto Villegas MD Electronically Signed: Syeda Roe The patient is a 59-year-old male presenting for a telemedicine consultation primarily for medical management of insomnia, asthma, and lumbar radiculopathy. He requested refills for his medications, which include Ambien for insomnia, Tramadol and Oxycodone for pain management, and Albuterol HFA for asthma. He stated that these medications have been effective in managing his conditions and he denied any known side effects from their use. Additionally, the patient requested Tessalon perles to manage a cough, which is a new symptom he presented during this visit. He also inquired about receiving Toradol injections to aid in pain relief. The patient is awaiting results for a CT scan that was performed to evaluate concerns related to his stomach. He also reported a weight gain of 15-16 pounds, possibly related to limited activity due to pain. The patient expressed concern about the pain in his lower back and its progression. He indicated feeling discomfort but no other significant issues today, such as chest pain, palpitations, shortness of breath, or dizziness. Medical Decision Making and Differential Diagnoses: For insomnia, besides primary sleeplessness, conditions such as anxiety, depression, or sleep apnea were considered. Evaluation of sleep hygiene and possibly a sleep study were areas for future consideration if symptoms persist. In lumbar radiculopathy, differentials like spinal stenosis or herniated discs need exploration, potentially through imaging if no improvement is noted. The newly reported cough could be due to a mild upper respiratory infection or could have an allergenic component. In considering chronic pain management, the possibility of opioid dependency and the necessity of assessing pain against potential medication side effects were discussed. Treatment Plan: Refills were authorized for Ambien, Tramadol, Oxycodone, and Albuterol HFA as the patient reported them effective and free from concerning side effects. Benzonatate (Tessalon perles) was prescribed to address cough symptoms, with a note to monitor for resolution of symptoms and follow up if persisting. Toradol 30 mg IM was administered for immediate pain relief, particularly for the intensified back and rib pain. The patient agreed to the importance of adhering strictly to the prescribed schedule for medications, understanding that this supports the effectiveness of treatment and helps prevent complications associated with inconsistent use, such as unmanaged pain or withdrawal symptoms. He was advised about the potential side effects of Tramadol and Oxycodone, including drowsiness, constipations, and dependence, encouraging the use of non-opioid pain relief methods when possible, such as physical therapy and heat application. Follow-up Discussion: It was recommended that the patient schedule a follow-up appointment to discuss the CT scan results when available, which might influence ongoing treatment plans or indicate the need for further testing or referrals. By the next meeting, it will also be important to reassess all current symptoms, pain management strategies, and overall medication efficacy and tolerability. The patient was advised to remain observant for any new or changing symptoms and to report these promptly to optimize care and therapeutic outcomes. 10/11/2024 Other By signing my name below, Beth Rosales, attfrank that this documentation has been prepared under the direction and in the presence of Bebeto Villegas MD I, Rajan Gulati personally performed the services described in this documentation. All medical record entries made by the scribe were at my direction and in my presence. I have reviewed the chart and discharge instructions and agree that the record reflects my personal performance and is accurate and completed. 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 He reports that he slipped and fell while descending stairs, landing on his side and hearing a crack on the right side of his ribcage. A computed tomography (CT) scan conducted after the incident revealed nondisplaced fractures of the right posterior 11th and 12th ribs and a nondisplaced fracture of the right transverse process of L1. The patient continues to experience significant rib and back pain, which he reports as more severe than previously, affecting his ability to resume work duties. He requests a letter to extend his absence from work due to these persisting issues. Patient offers no other complaint today. Denies any significant complaints of chest pain, palpitation, shortness of breath, or dizziness today. Medical Decision Making and Differential Diagnoses: For the rib fractures, the healing process must be monitored, with consideration given to potential complications such as nonunion or delayed healing, which may require further imaging or orthopedic evaluation. For the transverse process fracture, continued assessment is needed to ensure stability and healing, and to monitor for any neurologic symptoms that could suggest additional spinal injury. Chronic pain management requires careful balance to avoid opioid dependency and assess for any underlying conditions that may exacerbate pain perception, such as anxiety or depression. Treatment Plan: The primary concern was addressing the patient's chronic pain and immobility due to the fractures. Pain management was to involve continued use of any previously prescribed pain medications, though specific medications and dosages would need to be confirmed or adjusted based on current needs and provided prescriptions. The patient was educated on the healing process and the importance of adhering to any prescribed physical therapy exercises to promote healing and prevent stiffness. The requested work absence letter was prepared, acknowledging the patient's ongoing pain and functional limitations, which prevent the patient from fulfilling job duties. This supports the need for continued medical leave until significant improvement is observed. The patient was advised to maintain regular follow-up visits to monitor the healing of the fractures, and additional imaging might be considered if symptoms persist or worsen. Efforts were made to integrate non-pharmacolo gical pain strategies, such as application of heat/cold, gentle stretching, and possibly engaging in supportive exercises or physical therapy as tolerated. Follow-up Discussion: A follow-up plan was established to reassess the patient's pain and mobility, with the goal of gauging improvement and planning for eventual return to work. The patient was informed of the importance of adhering to medical advice and the risks of complications from disregarding the recommended care plan. Monitoring for new symptoms, such as increased pain or any signs of neurological deficits, is critical for timely intervention. The patient was encouraged to contact the healthcare provider if there are any concerns or exacerbation of symptoms before the next scheduled visit. 10/14/2024 Other By signing my name below, Trudy Rosales, attest that this documentation has been prepared under the direction and in the presence of Bebeto Villegas MD I, Rajan Gulati personally performed the services described in this documentation. All medical record entries made by the scribe were at my direction and in my presence. I have reviewed the chart and discharge instructions and agree that the record reflects my personal performance and is accurate and completed. Electronically Signed: Bebeto Villegas MD By signing my name below, Syeda Rosales, attest that this documentation has been prepared under my supervision and the direction and presence of Bebeto Villegas MD Electronically Signed: Syeda nusratraymond This is a 59-year-old male patient presenting today via telemed for management of his upper respiratory symptoms. The patient presents with symptoms suggestive of a sinus infection. The patient reports experiencing nasal congestion, yellow nasal discharge, dry eyes, and a headache localized to the forehead. These symptoms have been ongoing for the past four days. The patient denies having a sore throat but mentions occasional low-grade fever. The nasal congestion and discharge have been persistent, with the discharge initially being white and now turning yellow. The patient also reports a sensation of pressure in the head and dry, watery eyes. Additionally, the patient is requesting refills of his Azelastine nasal spray. He denies any potential side effects towards the medications and reports the medications are working well. He offers no other complaint today. Denies any significant complaints of chest pain, palpitation, shortness of breath, or dizziness today. MEDICAL DECISION-SATISH Kay Given the patient's symptoms of nasal congestion, yellow nasal discharge, headache, and dry eyes, the primary diagnosis is acute sinusitis. Differential diagnoses include acute viral upper respiratory infection and allergic rhinitis. The presence of yellow nasal discharge and headache localized to the forehead supports the diagnosis of sinusitis. The patient's use of Nasacort nasal spray suggests a history of similar episodes, which may indicate recurrent sinusitis. TREATMENT PLAN -The medical history and the ongoing symptoms were reviewed and discussed in great detail. -The treatment plan included refilling the Azelastine nasal spray. -The patient was prescribed a Zithromax Z-Kody for further management. The mechanism of action, benefits, and side effects were discussed with the patient. -The patient was advised to continue using his nasal sprays and to take the prescribed antibiotic as directed. -Ordered influenza, RSV, and COVID-19 swab tests along with PCR test to be done. FOLLOW-UP DISCUSSION He was advised to follow up if his symptoms did not improve within a few days of starting the antibiotics. He was also instructed to seek medical attention if he experienced any worsening of symptoms, such as high fever, severe headache, or difficulty breathing. The importance of completing the full course of antibiotics was emphasized to prevent recurrence and resistance. 10/24/2024 Other By signing my name below, I Stusully Montes, attest that this documentation has been prepared under the direction and in the presence of Bebeto Villegas MD I, Rajan Gulati personally performed the services described in this documentation. All medical record entries made by the scribe were at my direction and in my presence. I have reviewed the chart and discharge instructions and agree that the record reflects my personal performance and is accurate and completed. Electronically Signed: Bebeto Villegas MD By signing my name below, Mami Rosales, attfrank that this documentation has been prepared under my supervision and the direction and presence of Bebeto Villegas MDElectronically Signed: Mami Dsouza This is a 59 year old male who presents today via telemed for medical management of back pain. The patient is requesting Toradol injection. The patient denies any side effects of the medication and states that the medications are working well. The patient offers no other complaint today. Denies any significant complaints of chest pain, palpitation, shortness of breath, or dizziness today. MEDICAL DECISION MAKING: The primary concern is the management of chronic back pain. The patient has previously responded well to Toradol (ketorolac) injections without side effects. Differential diagnoses for back pain could include musculoskeleta l strain, degenerative disc disease, or other spinal pathologies. However, given the patient's history and response to treatment, these are less likely. TREATMENT PLAN: The patient was administered a Toradol 60 mg intramuscular injection for immediate pain relief. The patient was referred to Dr. Meza for further management of chronic back pain, which may include exploring other treatment modalities such as physical therapy, lifestyle modifications, or alternative pain management strategies. It was emphasized that adherence to the treatment plan is crucial for effective pain management and to prevent potential complications such as increased pain or decreased mobility. FOLLOWUP DISCUSSION: The patient was scheduled for a follow-up appointment in one month to evaluate the effectiveness of the current treatment plan and to monitor for any side effects or complications. 10/28/2024 Other By signing my name below, IBeth, attfrank that this documentation has been prepared under the direction and in the presence of Bebeto Villegas MD I, Rajan Gulati personally performed the services described in this documentation. All medical record entries made by the scribe were at my direction and in my presence. I have reviewed the chart and discharge instructions and agree that the record reflects my personal performance and is accurate and completed. 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 He reports slipping and falling while descending stairs, landing on his side, and hearing a crack on the right side of his ribcage, suggestive of rib fractures. The patient requests an extension for [facility] paperwork related to this injury. He has been consulting with Dr. Meza, who has ordered MRIs for further evaluation but is seeking an earlier appointment due to ongoing pain and suspected involvement of his lower back. Patient offers no other complaint today. Denies any significant complaints of chest pain, palpitation, shortness of breath, or dizziness today. Medical Decision Making and Differential Diagnoses Rib Fracture: Diagnosed based on the reported fall and symptoms; further imaging through MRI is planned for a detailed assessment. Chronic Pain: Observed in the rib and lower back areas, potentially caused or exacerbated by the fall; considering modification of treatment to address pain management effectively. Fall on Same Level from Stairs: Contributed to the rib fracture and possibly to the exacerbation of back pain; ongoing assessment for additional injuries or complications. Treatment Plan The [facility] paperwork was completed and signed to accommodate an extension request due to his ongoing injury and discomfort. Follow-up imaging with an MRI was prioritized to assess his rib and lower back injuries more comprehensivel y. Efforts were made to expedite his MRI appointment for earlier completion. Pain management strategies were discussed, potentially adjusting current treatment to adequately address his symptoms and improve function. Continued follow-up with Dr. Meza and coordination of care for further interventions such as possible steroid injections or physical therapy were recommended based on the MRI results. Follow-Up Discussion Further evaluation and management depend on MRI findings. The patient should be monitored for any worsening pain, changes in mobility, or new symptoms that may arise. Adjustments to his care should ensure adequate pain control and address any potential complications. Ongoing communication with his care providers, including Dr. Meza and any additional specialists, will help tailor a comprehensive treatment strategy aimed at promoting recovery and return to work. 11/05/2024 Other By signing my name below, IBeth, attfrank that this documentation has been prepared under the direction and in the presence of Bebeto Villegas MD IBebeto personally performed the services described in this documentation. All medical record entries made by the scribe were at my direction and in my presence. I have reviewed the chart and discharge instructions and agree that the record reflects my personal performance and is accurate and completed. Electronically Signed: Bebeto Villegas MD By signing my name below, Syeda Rosales, attfrank that this documentation has been supervised by me under the direction and in the presence of Bebeto Villegas MD Electronically Signed: Syeda Roe This is a 59-year-old male patient presenting today via telemedicine for the management of insomnia and chronic pain. He is requesting refills of Ambien and tizanidine, reporting that both medications are working well without any side effects. Additionally, he is requesting a Toradol injection for pain management. He offers no other complaint today. Denies any significant complaints of chest pain, palpitations, shortness of breath, or dizziness today. Medical Decision-Satish kay The patient's medications for insomnia and chronic pain are effective as he reports no side effects and satisfactory pain control. Refills for Ambien and tizanidine were considered appropriate. The patient's request for a Toradol injection was reviewed and deemed a suitable adjunct for his chronic pain, taking care to avoid potential renal or gastrointestin al side effects from nonsteroidal anti-inflammat ory drugs (NSAIDs). Treatment Plan Refills were provided for Ambien and tizanidine. The prescription monitoring program (ROAD HOGGER OPERATOR I-STOP) was reviewed to ensure compliance with controlled medication prescriptions. A Toradol injection was ordered to manage chronic pain. The patient was advised on the importance of adhering to prescribed treatments and was informed about potential Toradol side effects, including increased risk of bleeding, and advised to avoid co-administrat ion with other NSAIDs. Follow-Up The patient was advised to schedule a follow-up visit to assess the effectiveness of pain management strategies and to monitor for any potential side effects or changes in health status. Continual evaluation of his pain management plan, considering non-pharmacolo gical options such as physical therapy, was recommended. 11/08/2024 Other By signing my name below, ITrudy, attest that this documentation has been prepared under the direction and in the presence of Bebeto Villegas MD IBebeto personally performed the services described in this documentation. All medical record entries made by the scribe were at my direction and in my presence. I have reviewed the chart and discharge instructions and agree that the record reflects my personal performance and is accurate and completed. Electronically Signed: Bebeto Villegas MD By signing my name below, ISyeda, attfrank that this documentation has been prepared under my supervision and the direction and presence of Bebeto Villegas MD Electronically Signed: Syeda Roe This is a 59-year-old male patient presenting today via telemed for his workers compensation follow up visit. The patient presents with severe pain following a work-related injury. He has been deemed 100% disabled by the pain management nurse practitioner, Dr. Meza; however, he has not received the necessary documentation to submit for workman's compensation. He has not received any pain management injections, which were canceled multiple times due to lack of approval. He is experiencing significant pain and financial stress due to the inability to work and the delay in receiving compensation. The patient and his are concerned about their ability to pay rent and are seeking urgent assistance to obtain the necessary documentation and pain management. He offers no other complaint today. Denies any significant complaints of chest pain, palpitation, shortness of breath, or dizziness today. MEDICAL DECISION-SATISH Kay Differential Diagnoses Chronic pain: Persistent pain following a work-related injury. Work-related injury: Documented injury leading to disability. Disability status: Requires documentation for workman's compensation. TREATMENT PLAN -The medical history was reviewed and discussed in great detail. -The patient was provided with the necessary documentation stating his 100% disability status for the next 6 weeks to submit for workman's compensation. -He was advised to follow up with his pain management nurse practitioner, Dr. Meza. -The Toradol 30 intramuscular injection will be administered to the patient today. The patient was advised visiting the for injection administration . -The patient was counseled on the importance of adhering to his pain management plan and the risks of non-adherence, including worsening pain and potential complications. -He was also provided with information on non-pharmacolo gical pain management strategies, such as physical therapy and the use of heat/cold packs. FOLLOW-UP DISCUSSION The patient was advised to submit the disability documentation to his employer and follow up with his pain management nurse practitioner. He was instructed to monitor his pain levels and report any changes or worsening of symptoms. 11/12/2024 Other By signing my name below, Stu Rosales, attfrank that this documentation has been prepared under the direction and in the presence of Bebeto Villegas MD I, Rajan Gulati personally performed the services described in this documentation. All medical record entries made by the scribe were at my direction and in my presence. I have reviewed the chart and discharge instructions and agree that the record reflects my personal performance and is accurate and completed. Electronically Signed: Bebeto Villegas MD By signing my name below, Syeda Rosales, attfrank that this documentation has been supervised by me under the direction and in the presence of Bebeto Villegas MD Electronically Signed: Syeda Roe This is a 59 year old male who presents today via telemed for medical management of insomnia, right knee pain, and lumbar radiculopathy. The patient is requesting refills of Oxycodone, Tramadol, Tizanidine, Naproxen, and Ambien.The patient denies any side effects of the medication and states that the medications are working well. The patient offers no other complaint today. Denies any significant complaints of chest pain, palpitation, shortness of breath, or dizziness today. MEDICAL DECISION MAKING: The patient's current medication regimen appears effective, with no reported side effects. The primary focus is on maintaining her current treatment plan while monitoring for any potential interactions or complications. Differential diagnoses for her symptoms were considered, but no new symptoms were reported, suggesting stability in her current conditions. TREATMENT PLAN: The medical history was reviewed and discussed in great detail. Reviewed and reconciled medications. The patient's requested medications were refilled today. I-STOP was reviewed to ensure appropriate use and monitoring of medication. The patient was advised to continue his current medication regimen as it has been effective in managing his symptoms without reported side effects. The importance of adherence to the prescribed dosages was emphasized to prevent complications such as medication overuse or dependency. FOLLOWUP DISCUSSION: The patient was scheduled for a follow-up appointment in one month to evaluate the effectiveness of the current treatment plan and to monitor for any side effects or complications. 11/15/2024 Other By signing my name below, I, Jos Deshpande, attest that this documentation has been prepared under the direction and in the presence of MARINA Stringer Rajan Gulati personally performed the services described in this documentation. All medical record entries made by the scribe were at my direction and in my presence. I have reviewed the chart and discharge instructions and agree that the record reflects my personal performance and is accurate and completed.Electr onically Signed: Bebeto Villegas MD By signing my name below, Syeda Rosales, attfrank that this documentation has been prepared under my supervision and the direction and presence of Bebeto Villegas MD Electronically Signed: Syeda Roe 11/26/2024 Other By signing my name below, ConnieBeth, attest that this documentation has been prepared under the direction and in the presence of Bebeto Villegas MD I, Rajan Gulati personally performed the services described in this documentation. All medical record entries made by the scribe were at my direction and in my presence. I have reviewed the chart and discharge instructions and agree that the record reflects my personal performance and is accurate and completed. Electronically Signed: Bebeto Villegas MD By signing my name below, Syeda Rosales attfrank that this documentation has been supervised by me under the direction and in the presence of Bebeto Villegas MD Electronically Signed: Syeda Roe The patient is a 59-year-old male presenting via telemedicine with complaints of a cough, sore throat, hoarse voice, watery eyes, sinus pressure, and stuffy nose for the past two days. These symptoms suggest an upper respiratory infection, possibly viral in nature, coupled with allergic rhinitis given the watery eyes and sinus symptoms. The patient is interested in obtaining Tessalon Perles for cough management. He offers no other complaints today. Denies any significant complaints of chest pain, palpitations, shortness of breath, or dizziness today. Medical Decision Making and Differential Diagnoses The immediate medical management focused on addressing both the infectious and allergic components of the patient's symptoms. The prescription of Z-Kody (azithromycin) was considered to prevent or manage a secondary bacterial infection if symptoms persist or worsen, though initially this presentation likely suggests a viral etiology. Azelastine nasal spray and Pataday eye drops addressed the allergic symptoms of congestion and ocular irritation. Differential diagnoses included bacterial sinusitis and pharyngitis; however, based on symptomology and typical course, initial conservative treatment with a focus on relief of symptoms was prioritized. Treatment Plan The patient was prescribed a Z-Kody to manage the potential secondary bacterial infection. Azelastine nasal spray was prescribed to alleviate nasal congestion due to suspected allergic rhinitis, and Pataday eye drops were recommended to control eye watering. Prescribed Tessalon Perles 200 mg three times a day for a week. Potential side effects such as gastrointestin al disturbance from the antibiotic, nasal irritation from the spray, and any ocular irritation from the eye drops were discussed comprehensivel y. Ongoing assessment of symptom progression is necessary, and if no improvement occurs, further evaluation or an in-person examination was advised to rule out other causes. Supportive care, including hydration, rest, and the use of a humidifier, was recommended to alleviate symptoms and hasten recovery. Follow-Up Discussion The patient was advised to monitor his symptoms closely and seek further consultation if symptoms persist or if any new concerning symptoms develop. Emphasizing the importance of completing the prescribed antibiotic course if initiated and continuing allergy management with azelastine and Pataday was crucial. Follow-up was recommended within a week to reassess symptoms, especially if there is no improvement or if worsening occurs. 11/26/2024 Other By signing my name below, IBeth, attest that this documentation has been prepared under the direction and in the presence of Bebeto Villegas MD I, Rajan Gulati personally performed the services described in this documentation. All medical record entries made by the scribe were at my direction and in my presence. I have reviewed the chart and discharge instructions and agree that the record reflects my personal performance and is accurate and completed. Electronically Signed: Bebeto Villegas MD By signing my name below, Syeda Rosales, attest that this documentation has been supervised by me under the direction and in the presence of Bebeto Villegas MD Electronically Signed: Syeda Roe The patient is a 59-year-old male presenting via telemedicine for medical management of chronic lumbar pain, associated with his worker's compensation status. He reports experiencing persistent lumbar pain for which Toradol injections have previously provided temporary relief, allowing him to perform daily activities with greater ease. His communicated on his behalf, endorsing the efficacy of this treatment. The patient requests a formal letter indicating he is 100% disabled, with his return to work date yet to be determined. He offers no other complaints today. Denies any significant complaints of chest pain, palpitations, shortness of breath, or dizziness today. Medical Decision Making and Differential Diagnoses The management strategy focused on alleviating the patient's chronic lumbar pain while considering the requirements imposed by his worker's compensation claim. The Toradol injection was considered due to its demonstrated effectiveness in providing temporary pain relief without severe side effects known in this patient. Other potential analgesic interventions considered included non-steroidal anti-inflammat ory drugs (NSAIDs) and physical rehabilitative approaches. Given the chronic nature of his pain, assessing for underlying musculoskeleta l or neurological causes was noted as a consideration for future evaluations. Treatment Plan A Toradol injection was ordered for acute pain relief, acknowledging its benefits in reducing inflammation and pain. The risk of gastrointestin al disturbances associated with NSAIDs was discussed, given the patient's medical need for long-term management options. An official letter was provided to confirm his 100% disability status for worker's compensation purposes, with [id number] timing to be determined based on future assessments. Recommended engagement with physical therapy and pain management specialists was suggested for long-term improvement of function and reduction in pain levels. Continuous monitoring of his response to treatments and regular follow-up appointments for comprehensive reassessment of his disability status were advised. Follow-Up Discussion The patient and his were advised on the importance of regular follow-up appointments to monitor pain levels and therapy effectiveness. Discussing potential alternative pain management strategies if necessary was encouraged as part of a multi-discipli nary approach. Emphasizing communication with his worker's compensation warehouse representative s and healthcare providers regarding changes in pain levels or functionality was essential to better tailor his care. 12/05/2024 Other By signing my name below, I, Stu Montes, attest that this documentation has been prepared under the direction and in the presence of Bebeto Villegas MD I, Rajan Gulati personally performed the services described in this documentation. All medical record entries made by the scribe were at my direction and in my presence. I have reviewed the chart and discharge instructions and agree that the record reflects my personal performance and is accurate and completed. Electronically Signed: Bebeto Villegas MD By signing my name below, Syeda Rosales, felix that this documentation has been supervised by me under the direction and in the presence of Bebeto Villegas MD Electronically Signed: Syeda Roe This is a 59 year old male who presents today via telemed for medical management of . This is a follow up visit and the patient was last seen on 12/02/2024. The patient is requesting refills of Oxycodone and Ambien. The patient denies any side effects of the medication and states that the medications are working well. He is also requesting a toradol shot for his lumbar pain. The patient offers no other complaint today. Denies any significant complaints of chest pain, palpitation, shortness of breath, or dizziness today. MEDICAL DECISION MAKING: The patient's current medication regimen appears effective, with no reported side effects. The primary focus is on maintaining the current treatment plan while monitoring for any potential interactions or complications. Differential diagnosis for symptoms were considered, but no new symptoms were reported, suggesting stability in current conditions. TREATMENT PLAN: The medical history was reviewed and discussed in great detail. Reviewed and reconciled medications. The patient's requested medications were refilled today. I-STOP was reviewed to ensure appropriate use and monitoring of medication. The patient was advised to continue his current medications as prescribed. A Toradol shot was ordered for his lumbar pain as requested. The importance of medication adherence was emphasized, along with the risks and complications of non-adherence. Potential interactions with other medications or substances were discussed, particularly concerning the controlled substances prescribed. Non-pharmacolo gical strategies such as physical therapy and cognitive-beha vioral therapy for insomnia were recommended. FOLLOWUP DISCUSSION: The patient was scheduled for a follow-up appointment in one month to evaluate the effectiveness of the current treatment plan and to monitor for any side effects or complications. 12/26/2024 Other By signing my name below, Trudy Rosales, attest that this documentation has been prepared under the direction and in the presence of Bebeto Villegas MD IBebeto personally performed the services described in this documentation. All medical record entries made by the scribe were at my direction and in my presence. I have reviewed the chart and discharge instructions and agree that the record reflects my personal performance and is accurate and completed. Electronically Signed: Bebeto Villegas MD By signing my name below, I, Syeda Roe, attest that this documentation has been prepared under my supervision and the direction and presence of Bebeto Villegas MD Electronically Signed: Syeda Roe This is a 59-year-old male patient presenting today via telemed for an urgent care follow up visit. The patient presented with a persistent cough that has not improved despite previous treatments. The recent blood work done on 12/23/2024 revealed low MPV at 6.3; otherwise, unremarkable. The X-ray chest done on 12/23/2024 showed no acute pulmonary disease. He mentioned that he has been experiencing tremors, a runny nose, chest congestion, and a change in his voice. He also noted that his cough is particularly troublesome at night, preventing him from sleeping. He requested a prescription for a cough syrup, which he had used previously with some relief. Additionally, he is requesting refills of his oxycodone. He denies any potential side effects towards the medications and reports the medications are working well. He offers no other complaint today. Denies any significant complaints of chest pain, palpitation, shortness of breath, or dizziness today. MEDICAL DECISION MAKING His persistent cough, despite previous treatments and a clear X-ray, suggests a need for further evaluation and possibly a different therapeutic approach. The differential diagnoses include chronic bronchitis, post-infectiou s cough, or an allergic reaction. Given his request for oxycodone, a controlled substance, it is crucial to consider the potential for misuse and explore alternative treatments. TREATMENT PLAN -The medical history was reviewed and discussed in great detail. -Reviewed and discussed the results of diagnostics at length . -Prescribed Tussionex cough syrup to be taken half a teaspoon at bedtime as directed. The mechanism of action, benefits, and side effects were discussed with the patient. - ROAD HOGGER OPERATOR-I stop was reviewed with the patient today. -Advised on the importance of adherence to the new medication and potential side effects. -Discussed non-pharmacolo gical strategies such as using a humidifier and staying hydrated. FOLLOW-UP DISCUSSION He was advised to follow up as needed to assess the effectiveness of the new cough syrup. He was also instructed to contact the office if his symptoms worsen or if he experiences any side effects from the new medications. 12/26/2024 Other By signing my name below, Trudy Rosales, attfrank that this documentation has been prepared under the direction and in the presence of Bebeto Villegas MD I, Rajan Gulati personally performed the services described in this documentation. All medical record entries made by the scribe were at my direction and in my presence. I have reviewed the chart and discharge instructions and agree that the record reflects my personal performance and is accurate and completed. Electronically Signed: Bebeto Villegas MD By signing my name below, Syeda Rosales attest that this documentation has been prepared under my supervision and the direction and presence of Bebeto Villegas MD Electronically Signed: Syeda Roe This is a 59-year-old male patient presenting today via telemed for a workers compensation follow-up visit. The patient reported severe back pain related to a workers' compensation case, for which he has been awaiting approval for injections. He expressed frustration with the ongoing pain and the delay in receiving treatment. He offers no other complaint today. Denies any significant complaints of chest pain, palpitation, shortness of breath, or dizziness today. MEDICAL DECISION MAKING His back pain, related to a workers' compensation case, requires careful management, including pain relief and addressing the underlying cause. The plan will involve considering non-opioid options for pain management and ensuring follow-up for his workers' compensation case. TREATMENT PLAN -The medical history was reviewed and discussed in great detail. -Workers compensation visit was done today. -Toradol injection was advised to be administered for back pain relief. -Recommended non-opioid pain management options, including NSAIDs and physical therapy. -Emphasized the importance of adherence to the treatment plan and the risks of non-adherence. -Discussed potential complications of untreated back pain, such as decreased mobility and quality of life. FOLLOW-UP DISCUSSION He was advised to follow up as needed to assess the effectiveness of the pain management plan. He was also instructed to contact the office if his symptoms worsen or if he experiences any side effects from the new medications 01/02/2025 Other By signing my name below, ITrudy, attfrank that this documentation has been prepared under the direction and in the presence of Bebeto Villegas MD IBebeto personally performed the services described in this documentation. All medical record entries made by the scribe were at my direction and in my presence. I have reviewed the chart and discharge instructions and agree that the record reflects my personal performance and is accurate and completed. Electronically Signed: Bebeto Villegas MD By signing my name below, Syeda Rosales attest that this documentation has been prepared under my supervision and the direction and presence of Bebeto Villegas MD Electronically Signed: Syeda Roe This is a 59-year-old male patient presenting today via telemed for a follow up visit for medical management of lumbar radiculopathy, allergic asthma, and insomnia. He is requesting refills of his Oxycodone, Tramadol, Zolpidem, and Albuterol HFA. He denies any potential side effects towards the medications and reports the medications are working well. The patient has been experiencing sinus congestion for the past two weeks, characterized by sinus pressure, mucus production, and a persistent cough, particularly at night. He has been using an albuterol inhaler for relief but continues to experience significant symptoms. He is requesting a prescription for a Z-Kody for symptom management. He also mentions a recent visit to the emergency room where he was diagnosed with a viral infection and advised to rest and stay hydrated. He offers no other complaint today. Denies any significant complaints of chest pain, palpitation, shortness of breath, or dizziness today. MEDICAL DECISION MAKING His symptoms suggest a possible upper respiratory infection. The differential diagnoses include acute sinusitis, and viral upper respiratory infection. For the persistent sinus symptoms, and a Z-Kody for potential bacterial sinusitis was considered appropriate. The use of an albuterol inhaler was continued to manage his respiratory symptoms. TREATMENT PLAN -The medical history and the ongoing symptoms were reviewed and discussed in great detail. -Reviewed and reconciled medications. -The refills were provided as requested. - ROAD HOGGER OPERATOR-I stop was reviewed with the patient today. -Prescribed Zithromax Z-Kody (azithromycin) to be taken as directed. The mechanism of action, benefits, and side effects were discussed with the patient. Adherence Importance: Essential to complete the course to prevent antibiotic resistance. FOLLOW-UP DISCUSSION He was advised to follow up as needed to reassess his symptoms and response to treatment. He was also instructed to seek immediate medical attention if his symptoms worsen or if he experiences any new symptoms. 01/02/2025 Other By signing my name below, Trudy Rosales, attfrank that this documentation has been prepared under the direction and in the presence of Bebeto Villegas MD I, Rajan Gulati personally performed the services described in this documentation. All medical record entries made by the scribe were at my direction and in my presence. I have reviewed the chart and discharge instructions and agree that the record reflects my personal performance and is accurate and completed. Electronically Signed: Bebeto Villegas MD By signing my name below, Syeda Rosales attest that this documentation has been prepared under my supervision and the direction and presence of Bebeto Villegas MD Electronically Signed: Syeda Roe This is a 59-year-old male patient presenting today via telemed for a follow up on the back pain. This is a workers compensation follow up visit. The patient presents with complaints of worsening back pain. He reports that his back pain has been exacerbated by moving heavy items with the help of his son. He describes the pain as severe and persistent. He is requesting an order for a Toradol injection to be administered for back pain relief. He offers no other complaint today. Denies any significant complaints of chest pain, palpitation, shortness of breath, or dizziness today. MEDICAL DECISION MAKING The differential diagnoses include exacerbation of chronic back pain. For the severity of his back pain a Toradol injection for pain management was considered appropriate. The plan will involve considering non-opioid options for pain management and ensuring follow-up for his workers' compensation case. TREATMENT PLAN -The medical history was reviewed and discussed in great detail. -Workers compensation visit was done today. -Toradol injection was advised to be administered for back pain relief. -Recommended non-opioid pain management options, including NSAIDs and physical therapy. -Emphasized the importance of adherence to the treatment plan and the risks of non-adherence. -Discussed potential complications of untreated back pain, such as decreased mobility and quality of life. FOLLOW-UP DISCUSSION He was advised to follow up as needed to reassess his symptoms and response to treatment. He was also instructed to seek immediate medical attention if his symptoms worsen or if he experiences any new symptoms. 02/10/2025 Other By signing my name below, Connie Stu Montes, attfrank that this documentation has been prepared under the direction and in the presence of Bebeto Villegas MD I, Rajan Gulati personally performed the services described in this documentation. All medical record entries made by the scribe were at my direction and in my presence. I have reviewed the chart and discharge instructions and agree that the record reflects my personal performance and is accurate and completed. Electronically Signed: Bebeto Villegas MD By signing my name below, ISyeda, felix that this documentation has been supervised by me under the direction and in the presence of Bebeto Villegas MD Electronically Signed: Syeda Roe This is a 59 year old male who presents today via telemed for medical management of lumbar radiculopathy, asthma, seasonal allergies, and insomnia. The patient is requesting refills of Oxycodone, Tramadol, Tizanidine, Albuterol HFA, Montelukast, and Ambien. The patient denies any side effects of the medication and states that the medications are working well. He is also requesting Toradol injection for his back pain. The patient offers no other complaint today. Denies any significant complaints of chest pain, palpitation, shortness of breath, or dizziness today. MEDICAL DECISION MAKING AND TREATMENT PLAN: The patient's chronic conditions were reviewed, and medication reconciliation was performed. The patient's request for refills of Oxycodone, Tramadol, Tizanidine, Albuterol HFA, Montelukast, and Ambien was approved, as he reported no adverse effects and good symptom control. The Prescription Monitoring Program (ROAD HOGGER OPERATOR) was reviewed to ensure safe prescribing of controlled substances. A Toradol (ketorolac) 30 mg intramuscular injection was ordered for management of chronic back pain. The patient was counseled on the risks, benefits, and potential side effects of all medications, especially controlled substances and NSAIDs. The importance of medication adherence, avoidance of polypharmacy, and monitoring for side effects or complications was emphasized. The patient was advised to follow up as scheduled or sooner if symptoms worsen or new issues arise. Refilled Oxycodone, Tramadol, Tizanidine, Albuterol HFA, Montelukast, and Ambien as requested. Ordered Toradol 30 mg IM injection for back pain. Reviewed ROAD HOGGER OPERATOR for controlled substance safety. Counseled patient on medication adherence, side effects, and risks. Advised follow-up as scheduled or sooner if symptoms change. FOLLOWUP DISCUSSION: The patient was scheduled for a follow-up appointment in one month to evaluate the effectiveness of the current treatment plan and to monitor for any side effects or complications. 03/07/2025 Other By signing my name below, Stu Rosales, attfrank that this documentation has been prepared under the direction and in the presence of Bebeto Villegas MD IBebeto personally performed the services described in this documentation. All medical record entries made by the scribe were at my direction and in my presence. I have reviewed the chart and discharge instructions and agree that the record reflects my personal performance and is accurate and completed. Electronically Signed: Bebeto Villegas MD By signing my name below, Syeda Rosales, felix that this documentation has been supervised by me under the direction and in the presence of Bebeto Villegas MD Electronically Signed: Syeda Roe The [...] insomnia, Montelukast for allergies, and Vitamin D supplementatio n. The patient requests refills for all these [...] include lumbar disc herniation, spinal stenosis, and musculoskeleta l strain, but the chronicity and response to current therapy support the diagnosis of lumbar radiculopathy. Insomnia is likely multifactorial , possibly exacerbated by chronic pain and opioid use. Seasonal allergies are well-controlle d on Montelukast, and vitamin D deficiency is managed with supplementatio n. The patient's request for a Toradol injection was considered appropriate for acute pain exacerbation, given the lack of reported side effects and the need for multimodal pain management. Continued monitoring for opioid-related adverse effects and potential medication interactions is warranted. TREATMENT PLAN: The patient's medical history was reviewed and medications were reconciled.Ref ills for Oxycodone, Tramadol, Ambien, Montelukast, and Vitamin D were provided as the patient reported good efficacy and no adverse effects. The ROAD HOGGER OPERATOR I-STOP was reviewed to ensure appropriate use and monitoring of medication. A Toradol (ketorolac) 60 mg intramuscular injection was ordered to address acute exacerbation of back pain. The patient was counseled on the risks and benefits of opioid and NSAID use, including potential side effects, risk of dependence, gastrointestin al, renal, and cardiovascular complications, and the importance of adherence to prescribed regimens. Non-pharmacolo gical strategies such as physical therapy, stretching, and [...] monitor for any side effects or complications. 05/27/2025 Other By signing my name below, Stu Rosales, attest that this documentation has been prepared under the direction and in the presence of Bebeto Villegas MD I, Rajan Gulati personally performed the services described in this documentation. All medical record entries made by the scribe were at my direction and in my presence. I have reviewed the chart and discharge instructions and agree that the record reflects my personal performance and is accurate and completed. Electronically Signed: Bebeto Villegas MD By signing my name below, Syeda Rosales, attfrank that this documentation has been supervised by me under the direction and in the presence of Bebeto Villegas MD Electronically Signed: Syeda Roe Medical Decision Making (MDM) and Treatment Plan: The patient was evaluated for chronic lumbar radiculopathy, ongoing abdominal pain, and medication management. His medication list was reviewed and reconciled. Oxycodone 10 mg three times daily was prescribed for pain management, with counseling on the risks of long-term opioid therapy including dependence, sedation, constipation, and respiratory depression. The ROAD HOGGER OPERATOR I-STOP was reviewed to ensure appropriate [...] times daily for chronic pain management. The ROAD HOGGER OPERATOR I-STOP was reviewed for appropriate use. [...] sooner if new symptoms or concerns arise. 06/02/2025 Other By signing my name below, Stu Rosales, attfrank that this documentation has been prepared under the direction and in the presence of Bebeto Villegas MD I, Rajan Gulati personally performed the services described in this documentation. All medical record entries made by the scribe were at my direction and in my presence. I have reviewed the chart and discharge instructions and agree that the record reflects my personal performance and is accurate and completed. Electronically Signed: Bebeto Villegas MD By signing my name below, Syeda Rosales attest that this documentation has been supervised by me under the direction and in the presence of Bebeto Villegas MD Electronically Signed: Syeda Roe Medical [...] after labs and imaging for further management. 06/20/2024 Other Plan will be to give him Sutab and also gave him samples of Linzess 290 mcg to use for the week before the test to try to make his colon to be emptier prior to the prep, so hopefully we can get the procedure done with a good prep. 07/15/2024 Other By signing my name below, IStu, attfrank that this documentation has been prepared under the direction and in the presence of Bebeto Villegas MD IBebeto personally performed the services described in this documentation. All medical record entries made by the scribe were at my direction and in my presence. I have reviewed the chart and discharge instructions and agree that the record reflects my personal performance and is accurate and completed. Electronically Signed: Bebeto Villegas MD By signing my name below, Syeda Rosales, attfrank that this documentation has been supervised by me under the direction and in the presence of Bebeto Villegas MD Electronically Signed: Syeda Roe The patient is a 58-year-old male presenting via telemedicine for the management of lumbar disc disorder. He reports that his current medication regimen, which includes Oxycodone, is effective in managing his symptoms without any side effects. He is requesting a 30-day refill of Oxycodone. Additionally, the patient is requesting a Toradol (ketorolac) 30 mg intramuscular injection for acute low back pain relief. He denies experiencing any significant complaints such as chest pain, palpitations, shortness of breath, or dizziness. MEDICAL DECISION MAKING: The primary diagnosis is lumbar disc disorder, which is contributing to the patient's chronic low back pain. The differential diagnoses considered include lumbar radiculopathy and degenerative disc disease. The patient's request for Oxycodone and Toradol suggests a need for both chronic and acute pain management strategies. Given the patient's denial of side effects and the effectiveness of the current regimen, continuation of Oxycodone may be appropriate, but with caution due to the potential for opioid dependence and abuse. TREATMENT PLAN: The patient's requested medication was refilled today. I-STOP was reviewed to ensure appropriate use and monitoring of medication. The patient was advised to continue with Oxycodone for pain management, with a refill provided for 30 days. The benefits of Oxycodone include effective pain relief, but potential side effects such as constipation, drowsiness, and risk of dependence were discussed. For acute pain management, a Toradol 30 mg IM injection was considered, with the patient informed about potential side effects such as gastrointestin al bleeding and renal impairment. FOLLOWUP DISCUSSION: The patient was scheduled for a follow-up appointment in one month to evaluate the effectiveness of the current treatment plan and to monitor for any side effects or complications. 08/02/2024 Other By signing my name below, Ирина Rosales, attest that this documentation has been prepared under the direction and in the presence of ROBBI Lomax Electronically Signed: Ирина Nguyen I, Janet Pennisi, PA personally performed the services described in this documentation. All medical record entries made by the scribe were at my direction and in my presence. I have reviewed the chart and discharge instructions and agree that the record reflects my personal performance and is accurate and complete. Electronically Signed: ROBBI Lomax. All diagnoses new to me 09/13/2024 Other By signing my name below, Ирина Rosales, attfrank that this documentation has been prepared under the direction and in the presence of ROBBI Lomax Electronically Signed: Ирина Nguyen I, ROBBI Lomax personally performed the services described in this documentation. All medical record entries made by the scribe were at my direction and in my presence. I have reviewed the chart and discharge instructions and agree that the record reflects my personal performance and is accurate and complete. Electronically Signed: ROBBI Lomax. all diagnoses new to me 09/13/2024 Other Please understand that telemedicine-bas ed services may not be as complete as [id number] services. If your Provider believes you would be better served by another form of medical services (e.g. face to face services) you will be asked to make a [id number] appointment. There are potential risks and benefits associated with any form of medical treatment. You may expect the anticipated benefits from the use of telemedicine in your care, but no results can be guaranteed or assured. . Scribed for ROBBI Ruelas by Gary Gamino [employer]. All medical record entries made by the Scribe were at my direction and personally dictated by me. I have reviewed the chart and agree that the record accurately reflects my personal performance of the history, physical exam, medical decision-making, and instructions for this patient. I have also personally directed, reviewed, and agreed with the patient's education and plan. r 09/16/2024 Other 1. He is complaining of severe pain affecting lower back mostly on the right side resulting form a fall and physical examination does reveal bruising noted along the 11th and 12th rib and there is also significant tenderness noted in the lower thoracic and upper lumbar area. 2. He is requesting for trigger point injection. Consent was obtained. 3. Risk and benefit were explained to the patient. 4. Procedure was done under sterile conditions. 5. See the procedure noted below. He is advised to follow up in office as needed. RISKS AND BENEFITS: The possible risk and benefits of this procedure explained to the patient including but not limited to infection, temporary numbness and weakness, bleeding, toxic reaction to medication worsening of the patient's pain, neurological injury, postdural puncture headache, possible side effects from steroids, allergic reaction, , brain injury, worsening of the patient's pain. The patient was instructed not to drive, operate machinery or make any critical decisions on the day of the injection. The patient was told that no guarantee can be given as to success of the treatment or otherwise. The patient was told that more than one treatment might be required to achieve adequate pain relief or adequately assess the efficacy of this treatment. The patient understood. xxxxxxxxxxxxxxxx xxxxxxxxxxxxxxxx xxxxxxxxxxxxxxxx xxxxxxxxxxxxxxxx xxxxxxxxxxxxx Scribed for Rodolfo Meza M.D., by Jesse Richardson Scribe. All medical record entries made by the Scribe were at my direction and personally dictated by me. I have reviewed the chart and agree that the record accurately reflects personal performance of the history, physical exam, medical decision making, and the instructions for this patient. I have also personally directed, reviewed, and agreed with the patient's education and plan. 09/18/2024 Other 1. The patient is complaining of pain in the thoracic area, rib pain and low back pain for which CAT scans were done. This all resulted from a work-related injury, so I have told him that for further evaluation he needs to be scheduled this under Worker's Comp case and the patient is trying to get all the information. I have told him to follow up in office when information is available and then I can see him in the office under Worker's Comp. Scribed for Rodolfo Meza M.D., by Jesse Flores Scribe. All medical record entries made by the Scribe were at my direction and personally dictated by me. I have reviewed the chart and agree that the record accurately reflects personal performance of the history, physical exam, medical decision making, and the instructions for this patient. I have also personally directed, reviewed, and agreed with the patient's education and plan. 09/18/2024 Other By signing my name below, Ирина Rosales, attest that this documentation has been prepared under the direction and in the presence of ROBBI Lomax Electronically Signed: Ирина Nguyen I, ROBBI Lomax personally performed the services described in this documentation. All medical record entries made by the scribe were at my direction and in my presence. I have reviewed the chart and discharge instructions and agree that the record reflects my personal performance and is accurate and complete. Electronically Signed: ROBBI Lomax. all diagnoses new to me 09/30/2024 Other Colonoscopy. 10/01/[address] Mary Traore MD by Zakia Beckham [employer]. All medical record entries made by the Scribe were at my direction and personally dictated by me. I have reviewed the chart and agree that the record accurately reflects, the personal performance of the history, physical exam, medical decision-making, and instructions for this patient. I have also personally directed, reviewed, and agree with the patient's education and plan 10/25/2024 Other Scribed for Rodolfo Meza M.D., by Jimmie Kraft [employer]. All medical record entries made by the Scribe were at my direction and personally dictated by me. I have reviewed the chart and agree that the record accurately reflects personal performance of the history, physical exam, medical decision making, and the instructions for this patient. I have also personally directed, reviewed, and agreed with the patient's education and plan. 11/02/2024 Other 1. As the patient is complaining of severe pain and having difficulty even walking and standing and requesting for the trigger point injections. The patient had trigger point injections done multiple times in the past with significant improvement in the pain levels. Consent was obtained for the trigger point injections as physical examination does reveal multiple spasms in the paravertebral muscle of the lumbar spine. 2. Risks and benefits explained to the patient. All his questions were answered. He voiced understanding and was amenable to the treatment plan. 3. Procedure is done under sterile condition. 4. See the procedure note below. RISKS AND BENEFITS: The possible risk and benefits of this procedure explained to the patient including but not limited to infection, temporary numbness and weakness, bleeding, toxic reaction to medication worsening of the patient's pain, neurological injury, post dural puncture headache, possible side effects from steroids, allergic reaction, , brain injury, worsening of the patient's pain. The patient was instructed not to drive, operate machinery or make any critical decisions on the day of the injection. The patient was told that no guarantee can be given as to success of the treatment or otherwise. The patient was told that more than zone treatment might be required to achieve adequate pain relief or adequately assess the efficacy of this treatment. The patient understood. xxxxxxxxxxxxxxxx xxxxxxxxxxxxxxxx xxxxxxxxxxxxxxxx xxxxxxxxxxxxxxxx xxxxxxxxxxxxx Scribed for Rodolfo Meza M.D., by Jimmie Kraft [employer]. All medical record entries made by the Scribe were at my direction and personally dictated by me. I have reviewed the chart and agree that the record accurately reflects personal performance of the history, physical exam, medical decision making, and the instructions for this patient. I have also personally directed, reviewed, and agreed with the patient's education and plan. 11/11/[address] Mary Traore MD by Zakia Beckham [employer]. All medical record entries made by the Scribe were at my direction and personally dictated by me. I have reviewed the chart and agree that the record accurately reflects, the personal performance of the history, physical exam, medical decision-making, and instructions for this patient. I have also personally directed, reviewed, and agree with the patient's education and plan 11/29/2024 Other 1. The patient is complaining of severe pain across the low back and requesting for the trigger point injections. Physical examination does reveal severe spasms in the cervical, thoracic and lumbar spine. Consent was obtained for trigger point injections. 2. Risks and benefits explained to the patient. All his questions were answered. He voiced understanding and was amenable to the treatment plan. 3. Procedure is done under sterile condition. 4. See the procedure note below. RISKS AND BENEFITS: The possible risk and benefits of this procedure explained to the patient including but not limited to infection, temporary numbness and weakness, bleeding, toxic reaction to medication worsening of the patient's pain, neurological injury, post dural puncture headache, possible side effects from steroids, allergic reaction, , brain injury, worsening of the patient's pain. The patient was instructed not to drive, operate machinery or make any critical decisions on the day of the injection. The patient was told that no guarantee can be given as to success of the treatment or otherwise. The patient was told that more than zone treatment might be required to achieve adequate pain relief or adequately assess the efficacy of this treatment. The patient understood. xxxxxxxxxxxxxxxx xxxxxxxxxxxxxxxx xxxxxxxxxxxxxxxx xxxxxxxxxxxxxxxx xxxxxxxxxxxxx Scribed for Rodolfo Meza M.D., by Jimmie Kraft [employer]. All medical record entries made by the Scribe were at my direction and personally dictated by me. I have reviewed the chart and agree that the record accurately reflects personal performance of the history, physical exam, medical decision making, and the instructions for this patient. I have also personally directed, reviewed, and agreed with the patient's education and plan. 12/23/2024 Other RISKS AND BENEFITS: The possible risk and benefits of this procedure explained to the patient including but not limited to infection, temporary numbness and weakness, bleeding, toxic reaction to medication worsening of the patient's pain, neurological injury, post dural puncture headache, possible side effects from steroids, allergic reaction, , brain injury, worsening of the patient's pain. The patient was instructed not to drive, operate machinery or make any critical decisions on the day of the injection. The patient was told that no guarantee can be given as to success of the treatment or otherwise. The patient was told that more than zone treatment might be required to achieve adequate pain relief or adequately assess the efficacy of this treatment. The patient understood. xxxxxxxxxxxxxxxx xxxxxxxxxxxxxxxx xxxxxxxxxxxxxxxx xxxxxxxxxxxxxxxx xxxxxxxxxxxxx Scribed for Rodolfo Meza M.D., by Jesse Flores. All medical record entries made by the Scribe were at my direction and personally dictated by me. I have reviewed the chart and agree that the record accurately reflects personal performance of the history, physical exam, medical decision making, and the instructions for this patient. I have also personally directed, reviewed, and agreed with the patient's education and plan. 12/24/[address] Mary Traore MD by Zakia Beckham [facility]. All medical record entries made by the Scribe were at my direction and personally dictated by me. I have reviewed the chart and agree that the record accurately reflects, the personal performance of the history, physical exam, medical decision-making, and instructions for this patient. I have also personally directed, reviewed, and agree with the patient's education and plan Plan Of Treatment Pending Test Test Name Order Date EKG* 08/18/2020 TSH 04/21/2016 Hepatitis Panel* 52550 [id number] 08/03/2017 [place] Eye Exam with Fluorescein Ey e Stain 07/11/2022 CT Abdomen/Pelvis w* 05/27/2025 Hemoglobin A1c 04/21/2016 Drug Screen point of care* 02/15/2018 Future Test Test Name Order Date Exercise Stress Nuclear Test 04/21/2016 MRI Lumbar Spine w/o* 05/30/2019 24 HR Ambulatory Blood Pressure Monitor* 06/10/2019 MRI Thoracic Spine w/o* 10/04/2019 EMG : 2 limbs 07/08/2020 Holter Monitor* 09/01/2020 US YUE* 09/01/2020 US Reflux Venous BLE* 09/01/2020 Endoscopy - Diagnostic* 12/31/2020 Uroflowmetry 05/18/2021 CT Lumbar Spine w/o* 03/11/2022 US Reflux Venous BLE* 04/27/2022 US Echo 2D Doppler with color flow 04/27 MRI Wrist w/o, left* 09/20/2022 MRI Lumbar Spine w/o* 11/27/2023 X-ray Wrist 2V, right* 01/29/2024 Colonoscopy Screening* 05/09/2024 Colonoscopy Screening* 05/14/2024 US Reflux Venous BLE* 05/20/2024 US Bilateral LE Arterial Doppler/Duplex* 05/20/2024 Colonoscopy Screening* 06/27/2024 X-ray Ankle 3V, left* 08/15/2024 X-ray Chest 2V (PA/Lateral)* 09/13/2024 X-ray Ribs, bilateral* 09/13/2024 Colonoscopy Screening* 10/07/2024 C-Reactive Protein-[facility] 06/02/2025 Magnesium-[facility] 06/02/2025 PSA Antigen-[facility] 06/02/2025 Thyroid Stimulating Hormone 3-Ylayj-Hnar l[facility] 06/02/2025 Vitamin D Total-[facility] 06/02/2025 Comp Metabolic Panel (14)-[facility] 06/02 Lipid Panel-[facility] 06/02/2025 Hemoglobin A1c * 11368 06/09/2025 ESR (sed rate) * 37829 06/09/2025 CBC W/DIFF with Refx to Retic (new) IN H OUSE *6* 06/09/2025 Next Appt Details Provider Name:MARY TRAORE, 10:00:00 AM, [address], [place], [address], Insurance Providers Payer Name Payer Address Payer Phone Subscriber Number Group Number Insured Name Patient Relationship to Insured Coverage Start Date Coverage End Date [facility] [employer] [employer] [address] [address] [place] [address] [phone] [id number] Tino Phillips Self - patient is the insured [facility] [address] [address] [place] [address] [id number] [employer], Employee [employer] [facility] [id number] Unknown, Employee [facility] [employer] [id number] [place] [address] 2024 [employer], Employee [facility] [employer] [id number] [place] [address] [id number] [employer], Employee Medications Administered Medication Instructions Date of Administration Dosage Notes DNU-Toradol 60mg 12/24/2015 60 mg DNU-Toradol 60mg 04/27/2016 60 mg DNU-Toradol 60mg 08/03/2017 60 mg DNU-Toradol 60mg 10/24/2017 60 mg DNU-Toradol 60mg 02/15/2018 60 mg DNU-Toradol 60mg 04/05/2018 60 mg DNU-Toradol 60mg 05/04/2018 60 mg DNU-Toradol 60mg 06/19/2018 60 mg DNU-Toradol 60mg 07/02/2018 60 mg Toradol IM 08/02/2018 30 mg Toradol IM 09/03/2018 60 mg Toradol IM 10/01/2018 30 mg Toradol IM 10/29/2018 60 mg Toradol IM 11/29/2018 30 mg Toradol IM 12/27/2018 30 mg Toradol IM 02/25/2019 60 mg Toradol IM 03/28/2019 30 mg Toradol IM 04/25/2019 30 mg Toradol IM 05/30/2019 60 mg Toradol IM 07/19/2019 60 mg Ketorolac - Tromethamine 60mg 08/15/2019 60 mg Ketorolac - Tromethamine 30mg 09/05/2019 30 mg Toradol IM 10/04/2019 60 mg Toradol IM 12/27/2019 60 mg Toradol IM 03/10/2020 60 mg Toradol IM 03/24/2020 60 mg well tolerated , states has had injection in the past without ay reactions. Toradol IM 05/25/2020 60 mg Toradol IM 05/25/2020 60 mg Toradol IM 06/18/2020 60 mg Toradol IM 06/30/2020 60 mg Toradol IM 07/24/2020 60 mg Toradol IM 07/24/2020 60 mg Toradol IM 10/09/2020 60 mg injection was well tolerated Toradol IM 12/21/2020 60 mg Toradol IM 12/21/2020 60 mg Toradol IM 05/24/2021 60 mg Toradol IM 06/21/2021 60 mg Ketorolac - Tromethamine 60mg 06/25/2021 60 mg Toradol IM 09/24/2021 60 mg Ketorolac - Tromethamine 60mg 09/24/2021 60 mg DNU-Toradol 60mg 11/22/2021 60 mg Toradol IM 01/11/2022 60 mg Vitamin B12 Injection up to 1000mcg 01/11/2022 1 mL Toradol IM 01/11/2022 60 mg Toradol IM 04/19/2022 60 mg Toradol IM 04/19/2022 60 mg Toradol IM 05/06/2022 60 mg Toradol IM 05/06/2022 60 mg Toradol IM 05/19/2022 60 mg Toradol IM 05/19/2022 60 mg Toradol IM 06/03/2022 60 mg Toradol IM 06/03/2022 60 mg Toradol IM 07/13/2022 60 mg Toradol IM 07/22/2022 60 mg Toradol IM 07/27/2022 60 mg Toradol IM 08/30/2022 30 mg Toradol IM 09/02/2022 60 mg Toradol IM 09/12/2022 60 mg Toradol IM 09/12/2022 60 mg Toradol IM 2022 60 mg Toradol IM 10/11/2022 60 mg Toradol IM 11/07/2022 60 mg Toradol IM 11/19/2022 60 mg Toradol IM 12/09/2022 60 mg Toradol IM 12/28/2022 60 mg Toradol IM 12/28/2022 60 mg Toradol IM 01/06/2023 60 mg Toradol IM 01/19/2023 60 mg Toradol IM 01/26/2023 60 mg Toradol IM 01/26/2023 60 mg Toradol IM 02/09/2023 60 mg Toradol IM 02/16/2023 60 mg Toradol IM 03/17/2023 60 mg Toradol IM 03/28/2023 60 mg Toradol IM 04/11/2023 60 mg Toradol IM 05/03/2023 60 mg Toradol IM 05/12/2023 60 mg Toradol IM 05/30/2023 60 mg Toradol IM 06/09/2023 60 mg Toradol IM 07/07/2023 60 mg Toradol IM 07/11/2023 60 mg Toradol IM 09/14/2023 60 mg Toradol IM 10/31/2023 30 mg Toradol IM 11/14/2023 30 mg Toradol IM 11/22/2023 60 mg pt. received o nly 1/2 dose of 60mg Toradol. Toradol IM 11/30/2023 30 mg Toradol IM 11/30/2023 30 mg Toradol IM 12/14/2023 60 mg Toradol IM 12/15/2023 60 mg Toradol IM 01/15/2024 60 mg Toradol IM 01/15/2024 60 mg Toradol IM 03/20/2024 60 mg Toradol IM 04/18/2024 30 mg Toradol IM 04/23/2024 60 mg Toradol IM 04/26/2024 60 mg Ketorolac - Tromethamine 30mg 05/23/2024 30 mg Toradol IM 06/03/2024 30 mg Toradol IM 06/17/2024 60 mg Toradol IM 06/25/2024 30 mg Toradol IM 07/01/2024 60 mg Ketorolac - Tromethamine 60mg 07/02/2024 60 mg Toradol IM 07/15/2024 30 mg Toradol IM 07/29/2024 30 mg Toradol IM 07/29/2024 30 mg Toradol IM 08/02/2024 60 mg Toradol IM 08/02/2024 60 mg Toradol IM 08/13/2024 60 mg Toradol IM 08/19/2024 60 mg Toradol IM 08/26/2024 60 mg Vitamin B12 Injection up to 1000mcg 09/02/2024 Once a month for next 6 months Toradol IM 09/02/2024 30 mg Vitamin B12 Injection up to 1000mcg 09/03/2024 1 mL Toradol IM 09/03/2024 30 mg Toradol IM 09/13/2024 30 mg Vitamin B12 Injection up to 1000mcg 09/13/2024 1 mL Toradol IM 09/13/2024 60 mg Toradol IM 09/13/2024 60 mg Toradol IM 09/18/2024 60 mg Toradol IM 09/19/2024 60 mg Toradol IM 09/19/2024 60 mg Toradol IM 09/26/2024 60 mg Toradol IM 09/30/2024 60 mg Toradol IM 10/02/2024 60 mg Toradol IM 10/11/2024 30 mg Vitamin B12 Injection up to 1000mcg 10/16/2024 1 mL Toradol IM 10/24/2024 60 mg Toradol IM 10/25/2024 60 mg Toradol IM 11/05/2024 60 mg Vitamin B12 Injection up to 1000mcg 11/07/2024 1 mL Toradol IM 11/07/2024 60 mg Toradol IM 11/08/2024 30 mg Toradol IM 11/15/2024 60 mg Toradol IM 11/26/2024 60 mg Toradol IM 12/05/2024 30 mg Toradol IM 12/09/2024 30 mg Vitamin B12 Injection up to 1000mcg 12/09/2024 1 mg Vitamin B12 Injection up to 1000mcg 12/18/2024 1 mL Toradol IM 12/18/2024 30 mg Toradol IM 12/23/2024 15 mg Toradol IM 12/26/2024 30 mg Toradol IM 01/02/2025 30 mg Vitamin B12 Injection up to 1000mcg 01/29/2025 1 mL Toradol IM 02/10/2025 30 mg Vitamin B12 Injection up to 1000mcg 02/11/2025 1 mL Toradol IM 02/11/2025 30 mg Toradol IM 02/25/2025 30 mg Toradol IM 03/07/2025 60 mg Vitamin B12 Injection up to 1000mcg 03/13/2025 1000 ug Toradol IM 03/13/2025 60 mg Medical (General) History Medical History History ICD Code Low back pain M54.5 Essential hypertension I10 Carpal tunnel syndrome of right wrist G5 6.01 obesity asthma Lumbar disc disorder GERD Primary insomnia Surgical History Surgery Date(Month/Year) Lipoma left flank removal R wrist surgery- carpel tunnel surgery 1 Hospitalization History Reason Date(Month/Year) same as above
--- OUTSIDE RECORDS SUMMARY | 2025-06-03 10:24 | XMS_ITS | Encounter Summary ---
Author Organization [employer] Address [address] [place] [address] [address] [place] [address] Care Team Providers Care Employee Benefits Director Name Role Phone Missy Mcwilliams MD Primary Care Provider Reason for Visit * Reason Onset Date Comments Med Refill 05/22/2025 Encounter Details Date Type Department Care Team ([facility] st Contact Info) Description 05/22/2025 Telephone [facility] [address] [place] [address] Missy Mcwilliams MD [address] [place] [phone] Med Refill Social History Tobacco Use Types Packs/Day Years [...] Telephone Encounter - Faye Ordonez LPN - 05/22/2025 11:36 AM EDT Already addressed in another encounter today 05/22/25. * Telephone Encounter - Franki Garcia - 05/22/2025 11:30 AM EDT TC from PT reports that [facility] received the prescription for zolpidem (Ambien) 10 mg / 28 tablets. Pharmacy dispensed 15 tablets, as that is the maximum covered by insurance. The remaining 13 tablets from the original prescription were not covered due to insurance limitations (coverage capped at 15 tablets per fill). Patient is requesting that PCP send a new prescription for 15 tablets of zolpidem (Ambien) 10 mg [facility] pharmacy. documented in this encounter Plan of Treatment Upcoming Encounters Date Type Department Care Team (Late st Contact Info) Description 06/19/2025 1:00 PM EST Clinical Support [facility] [address] [place] [address] Mirta Valerio RN [address] [place] [address] 06/19/2025 2:30 PM EST Clinical Support [facility] [address] [place] [address] 07/22/2025 10:15 AM EST Office Visit [facility] [address] [place] [address] Name, MD Nestor [address] [place] [address] documented as of this encounter Visit Diagnoses Not on filedocumented in this encounter Care Teams Employee Benefits Director Relationship Specialty Start Date End Date Missy Mcwilliams MD [address] [place] [address] PCP - General Family Medicine 03/31/25 documented as of this encounter
--- OUTSIDE RECORDS SUMMARY | 2025-06-03 10:25 | XMS_ITS | Encounter Summary ---
Author Organization [employer] Address [address] [place] [address] [address] [place] [address] Care Team Providers Care Population Geneticist Name Role Phone Missy Mcwilliams MD Primary Care Provider [phone] Reason for Visit * Reason Onset Date Comments Med Refill 05/29/2025 Encounter Details Date Type Department Care Team ([facility] st Contact Info) Description 05/29/2025 Telephone [facility] [address] [place] [address] Missy Mcwilliams MD [address] [place] [phone] Med Refill Social History Tobacco Use Types [...] encounter Miscellaneous Notes * Telephone Encounter - Angelia Hernandez LPN - 05/29/2025 10:16 AM EDT Sent on 05.22.25 with 1 refill to [facility] * Telephone Encounter - Bren Hsu - 05/29/2025 10:10 AM EDT TC from pt requesting medication refill. Medications needing refill : - zolpidem (Ambien) 10 MG tablet 28 tablet To be sent to: - [facility]/pharmacy #[id number] - [place], [place] - [address] [facility] documented in this encounter Plan of Treatment Upcoming Encounters Date Type Department Care Team ([facility] st Contact Info) Description 06/19/2025 1:00 PM EST Clinical Support [facility] [address] [place] [address] Mirta Valerio, ENZO [address] [place] [address] 06/19/2025 2:30 PM EST Clinical Support [facility] [address] [place] [address] 07/22/2025 10:15 AM EST Office Visit [facility] [address] [place] [address] Name, MD Nestor [address] [place] [address] documented as of this encounter Visit Diagnoses Not on filedocumented in this encounter Care Teams Population Geneticist Relationship Specialty Start Date End Date Missy Mcwilliams MD [address] [place] [address] PCP - General Family Medicine 03/31/25 documented as of this encounter
== END 2025-06-03 09:17 | disposition home or self-care (01) ==
LOC: HO.NEURO 09:16
PROVIDERS: PCP Family Medicine; Visit Provider Family Medicine
DX: M25.532 Pain in left wrist (principal); M25.531 Pain in right wrist
CPT/HCPCS: 95886; 95909

== ENCOUNTER → 2025-06-03 09:20 | Outpatient (BNV) | payer MEDICAID, SELFPAY | PROVIDERS: PCP Family Medicine; Visit Provider Psychiatry & Neurology Neurology | DX: G56.02 Carpal tunnel syndrome, left upper limb (principal) | CPT/HCPCS: 95886; 95909 ==

== ENCOUNTER 2025-06-15 14:16 | Emergency (ER) | payer MEDICAID, SELFPAY ==
--- OUTSIDE RECORDS SUMMARY | 2025-03-13 09:15 | XMS_ITS ---
Author Organization [facility] C Address [address] [place] [address] Care Team Providers Care Cleaner Furniture Name Role Phone BEBETO VILLEGAS Primary Care Provider CHANTAL DALLAS Unavailable [phone] REASON FOR VISIT b-12, tordol shot Encounters Encounter Location Date Provider Diagnosis [facility] [address] [place] [address] 03/13/2025 BEBETO VILLEGAS Plan Of Treatment Next Appt Details Provider Name:MARY TRAORE, 10:00:00 AM, [address] [place], [address], Medications Administered Medication Instructions Date of Administration Dosage Notes Vitamin B12 Injection up to 1000mcg 03/13/2025 1000 ug Toradol IM 03/13/2025 60 mg Progress Notes * Tino CERVANTESDOB:1965 ([age] yo M)Acc No.[id number]:03/13/2025 Progress Note Patient: Tino Art Provider: Brodie VILLEGAS MD :1965 A ge:59 Y S ex:Male Date:03/13/2025 Address:[address], [address], [id number] Check In:02:15 PM ESTCheck O ut:02:33 PM [...] 3420 INJ VIT B-12 CYNOCOBLMN TO 1000 [id number] THER/PROPH/DIAG INJ, [id number] INJ KETOROLAC TROMETHAMINE 15 MG, Units: 4.00 Billing Information: * Procedure Codes: J3420 INJ VIT B-12 CYNOCOBLMN TO 1000 [address]. [address]162 THER/PROPH/DIAG INJ, SC/IM. J1885 INJ KETOROLAC TROMETHAMINE 15 MG. Units: 4.00. * Electronic signature of WILLIAMS VILLEGAS MD, [id number] on 06/15/2025 at 03:32 PM EST Sign off status: Pending * Provider: Brodie VILLEGAS MD Date: 0 03/13/2025 Generated for Lalita castro/Florian/Oni on: 08/15/2024 03:32 PM EST
--- OUTSIDE RECORDS SUMMARY | 2025-03-21 08:15 | XMS_ITS ---
Author Organization [facility] Address [address] [place] [address] Care Team Providers Care Publicity Consultant Name Role Phone BEBETO VILLEGAS Primary Care Provider [phone] CHANTAL DALLAS Unavailable [phone] JANET QUACH Unavailable [phone] REASON FOR VISIT Right Hip (new issue-needs X-rays) Encounters Encounter Location Date Provider Diagnosis [address] [place] [address] 03/21/2025 JANET QUACH Plan Of Treatment Next Appt Details Provider Name:MARY TRAORE, 10:00:00 AM, [address], [place], [address], Progress Notes * CERVANTES TinoDOB:1965 ([age] yo M)Acc No.[id number]:03/21/2025 Progress Notes Patient: Tino Art Provider: Patricia QUACH MD :1965 A ge:59 Y S ex:Male Date:03/21/2025 Address:[address], [address], [place], [place] Pcp:BEBETO VILLEGAS Subjective: * Chief Complaints: * R ight Hip (new issue-needs X-rays) * Electronic signature of NITIN QUACH MD, [id number] on 06/15/2025 at 03:31 PM EST Sign off status: Pending * Provider: Patricia QUACH MD Date: 0 03/21/2025 Generated for Lalita castro/Florian/Oni on: 1 08/15/2024 03:31 PM EST
--- OUTSIDE RECORDS SUMMARY | 2025-04-10 08:00 | XMS_ITS ---
Author Organization [facility] Address [address] [place] [address] Care Team Providers Care Medical Staffing Coordinator Name Role Phone BEBETO VILLEGAS Primary Care Provider CHANTAL DALLAS Unavailable [phone] JANET QUACH Unavailable [phone] REASON FOR VISIT RT Hip New Condition, Lumbar Spine, Ribs Pain 09/12/2024 - ref. by Dr. Villegas Encounters Encounter Location Date Provider Diagnosis [address] [facility] [address] [place] [address] 04/10/2025 JANET QUACH Encounter related to worker's compensation claim Z02.6 ; Closed fracture of multiple ribs of right side, initial encounter S22.41XA ; Lumbar disc disorder M51.9 and Right hip pain M25.551 Assessments Encounter Date Diagnosis (ICD Code) Assessment Notes Treatment Notes Treatment Clinical Notes Section Notes 04/10/2025 Encounter related to worker's compensation claim (ICD-10 - Z02.6) 04/10/2025 Closed fracture of multiple ribs of right side, initial encounter (ICD-10 - S22.41XA) 04/10/2025 Lumbar disc disorder (ICD-10 - M51.9) 04/10/2025 Right hip pain (ICD-10 - M25.551) Plan Of Treatment Next Appt Details Provider Name:MARY LEÓN, 10:00:00 AM, [address], [place], [address], History and Physical Notes * HPI (History of Present Illness) Category Sub-Category Detail Notes Category Not es Today's Visit _ [facility] Order Date: 09/13/2024 Performed Date: 09/13/2024 14:16:00 Transcribed: 09/13/2024 15:11:15 Requesting Physician: IRENE GUALLPA Ordering Physician: IRENE GUALLPA X-ray Lumbar Spine 3V (A/P, Lat, Spot)* REPORT Exam: CLINICAL INFORMATION: Back pain after injury. TECHNIQUE: X-Ray Lumbar Spine, 3 View(s) COMPARISON: 08/02/2024. FINDINGS:Alignment: Igwv-ap-tqacirki convex right thoracolumbar scoliosis. Stablemild grade 1 anterolisthesis of L4 on L3.Bones: Mild anterior compression deformity of L1, stable. Moderate to severemultilevel endplate degenerative changes, most notably at L2-3 with prominentendplate osteophytes, most notably of the right lateral aspect.Disc Levels: Moderate to severe multilevel degenerative disc disease, worstat L1-2 and L2-3.Soft Tissues: Unremarkable.Additional Comments: None. IMPRESSION:Grossly stable study, as detailed above. No definite acute abnormality. Ifconcern persists, an MRI should be considered. 15:Tino Morgan M ,1965 Accession ID: [id number] Images viewed on PACS. I agree with the report. [facility] Procedure Date: 09/13/2024 Procedure ID: [id number] Procedure Name: CT Abdomen/Pelvis w* Procedure Notes: Referring Physician: Irene Guallpa CC CLINICAL INFORMATION: Status post fall at work yesterday with right-sided chest and rib pain. Cracking on the right side of his abdomen and lower chest. TECHNIQUE: CT Abdomen and Pelvis with. IV Contrast: 95 cc Isoview 370. Oral contrast not administered. Protocol: Routine. Images were acquired utilizing dose reduction technique. COMPARISON: None. FINDINGS: Lower Chest: Unremarkable. Liver: Unremarkable. No focal lesions. Gallbladder/Biliary: Gallbladder is contracted. No calcified stones or biliary ductal dilatation. Spleen: Normal in size with no evidence of mass. Faint capsular calcification along the upper lateral spleen, nonspecific may be secondary to old remote trauma. Pancreas: Unremarkable. No masses or ductal dilation. Adrenals: Unremarkable. Kidneys: Unremarkable. No hydronephrosis. Retroperitoneum: No aortic aneurysm. No adenopathy. Gastrointestinal: There is no bowel obstruction. Scattered colonic diverticula without evidence of diverticulitis. No focal inflammatory process related to bowel loops. Small periumbilical fat containing hernia. Urinary Bladder: Unremarkable. Reproductive: Unremarkable. Bones: There is a nondisplaced fracture of the 11th rib with subtle contour deformity of the right posterior 12th rib as well probably also related to nondisplaced fracture. Nondisplaced fracture of the transverse process of L1 vertebral body. Scoliosis of the lower thoracic and lumbar spine noted. No pelvic fracture. Patchy area of sclerosis in the proximal right femur, nonspecific may represent a small nonaggressive chondroid lesion versus bone infarct. Additional Comments: None. IMPRESSION: No evidence of acute traumatic injury in the abdomen and pelvis. Nondisplaced fractures of the right posterior 11th and 12th ribs along with nondisplaced fracture of the right transverse process of L1. No associated intra-abdominal injury. Date Transcribed: 09/13/2024 Date Signed: 09/13/2024 Report Electronically Signed By: MD Jason, Vladimir Images viewed on PACS. I agree with the report. ____ [facility] Procedure Date: 09/13/2024 Procedure ID: [id number] Procedure Name: X-ray Ribs 3V, right* Procedure Notes: Referring Physician: Irene Guallpa CLINICAL INFORMATION: Status post fall at work, blunt right chest trauma, right chest pain TECHNIQUE: X-Ray Ribs, Four View(s), right COMPARISON: None. FINDINGS: Bones: No acute or suspicious osseous abnormalities. Soft tissues: Unremarkable. Visualized Lung Lieberman: Clear. No pneumothorax. Additional Comments: None. IMPRESSION: Negative study. Date Transcribed: 09/13/2024 Date Signed: 09/13/2024 Report Electronically Signed By: MD Jason, Vladimir Images viewed on PACS. I agree with the report. Progress Notes * Tino CERVANTESDOB:1965 ([age] yo M)Acc No.[id number]:04/10/2025 Progress Notes Patient: Tino Art Provider: Patricia QUACH MD :1965 A ge:59 Y S ex:Male Date:04/10/2025 Address:[facility] [address], [place], [id number] Pcp:BEBETO VILLEGAS Subjective: * Chief Complaints: * R T Hip New ConditionLumbar Spine, Ribs Pain 09/12/2024 - ref. by Dr. 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 On the way down there was no railings he slipped on the first step, slid down a few stepsand h it his right ribs and the back region on the steps. and he slipped and fell injuring his lower back and his ribs. He was seen at [facility] where broken ribs were found. He was also seen by Dr. Villegas via [facility] who ordered a Toradol injection which he has not had done yet. Had no prior history of injury to his ribs or his back. He also gave him a script for oxycodone 5 mg 120 tabs, 30 day supply. His pain is sever and worse at night. I h ave treated him in the past for right and left knee. 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 Since last visit on 09/19/2024, Pain described as sharp. Pain rated at 10/10. Symptoms aggravated by movement. Symptoms relieved by Oxycodone. [facility] Order Date: 09/13/2024 Performed Date: 09/13/2024 1 4:16:00 Transcribed: 0 09/13/2024 1 5:11:15 Requesting Physician: IRENE GUALLPA Ordering Physician: IRENE GUALLPA X-ray Lumbar Spine 3V (A/P, Lat, Spot)* REPORT Exam: CLINICAL INFORMATION: Back pain after injury. TECHNIQUE: X-Ray Lumbar Spine, 3 View(s) COMPARISON: 08/02/2024. FINDINGS:Alignment: Hycg-ag-inuccdfv convex right thoracolumbar scoliosis. Stablemild grade 1 anterolisthesis of L4 on L3.Bones: Mild anterior compression deformity of L1, stable. Moderate to severemultilevel endplate degenerative changes, most notably at L2-3 with prominentendplate osteophytes, most notably of the right lateral aspect.Disc Levels: Moderate to severe multilevel degenerative disc disease, worstat L1-2 and L2-3.Soft Tissues: Unremarkable.Additional Comments: None. IMPRESSION:Grossly stable study, as detailed above. No definite acute abnormality. Ifconcern persists, an MRI should be considered. 15:Tino Morgan M ,1965 Accession ID: [id number] Images viewed on PACS. I agree with t he report. [facility] Procedure Date: 09/13/2024 Procedure ID: [id number] Procedure Name: CT Abdomen/Pelvis w* Procedure Notes: Referring Physician: Irene Guallpa CLINICAL INFORMATION: Status post fall at work yesterday with right-sided chest and rib pain. Cracking on the right side of his abdomen and lower chest. TECHNIQUE: CT Abdomen and Pelvis with. IV Contrast: 95 cc Isoview 370. Oral contrast not administered. Protocol: Routine. Images were acquired utilizing dose reduction technique. COMPARISON: None. FINDINGS: Lower Chest: Unremarkable. Liver: Unremarkable. No focal lesions. Gallbladder/Biliary: Gallbladder is contracted. No calcified stones or biliary ductal dilatation. Spleen: Normal in size with no evidence of mass. Faint capsular calcification along the upper lateral spleen, nonspecific may be secondary to old remote trauma. Pancreas: Unremarkable. No masses or ductal dilation. Adrenals: Unremarkable. Kidneys: Unremarkable. No hydronephrosis. Retroperitoneum: No aortic aneurysm. No adenopathy. Gastrointestinal: There is no bowel obstruction. Scattered colonic diverticula without evidence of diverticulitis. No focal inflammatory process related to bowel loops. Small periumbilical fat containing hernia. Urinary Bladder: Unremarkable. Reproductive: Unremarkable. Bones: There is a nondisplaced fracture of the 11th rib with subtle contour deformity of the right posterior 12th rib as well probably also related to nondisplaced fracture. Nondisplaced fracture of the transverse process of L1 vertebral body. Scoliosis of the lower thoracic and lumbar spine noted. No pelvic fracture. Patchy area of sclerosis in the proximal right femur, nonspecific may represent a small nonaggressive chondroid lesion versus bone infarct. Additional Comments: None. IMPRESSION: No evidence of acute traumatic injury in the abdomen and pelvis. Nondisplaced fractures of the right posterior 11th and 12th ribs along with nondisplaced fracture of the right transverse process of L1. No associated intra-abdominal injury. Date Transcribed: 09/13/2024 Date Signed: 09/13/2024 Report Electronically Signed By: MD Jason, [employer] viewed on [employer]. I agree with t emely report. [facility] Procedure Date: 09/13/2024 Procedure ID: [id number] Procedure Name: X-ray Ribs 3V, right* Procedure Notes: Referring Physician: Irene Guallpa CLINICAL INFORMATION: Status post fall at work, blunt right chest trauma, right chest pain TECHNIQUE: X-Ray Ribs, Four View(s), right COMPARISON: None. FINDINGS: Bones: No acute or suspicious osseous abnormalities. Soft tissues: Unremarkable. Visualized Lung Lieberman: Clear. No pneumothorax. Additional Comments: None. IMPRESSION: Negative study. Date Transcribed: 09/13/2024 Date Signed: 09/13/2024 Report Electronically Signed By: MD Jason, [employer] viewed on [employer]. I agree with t emely report. * ROS: G eneral/Constitutional: Patient denies f ever, sweats, chills, fatigue. O phthalmologic: Patient denies b lurred vision, double vision. ? H EENT: Patient denies d ecreased hearing, nasal congestion, sore throat. R espiratory: Patient denies c ough, shortness of breath, wheezing, snoring. C ardiovascular: Patient denies c hest pain, palpitations, leg edema. ? G astrointestinal: Patient denies a bdominal pain, nausea, vomiting, diarrhea, constipation, heartburn, indigestion, rectal bleeding. G enitourinary: Patient denies f requent urination, painful urination, urinary incontinence, blood in the urine. M usculoskeletal: Patient complaining of s ee chief complaint. D ermatology: Patient denies r leonora, skin lesion(s). N eurologic: Patient denies h eadache, dizziness, tingling/numbness.? P sychiatric: Patient denies d epression, anxiety, insomnia. ? Assessment: * Assessment: 1. E ncounter related to worker's compensation claim - Z02.6 (Primary) 2 . C losed fracture of multiple ribs of right side, initial encounter - S22.41XA 3 .?Lumbar disc disorder - M51.9 4 . R ight hip pain - M25.551 * Electronic signature of NITIN QUACH MD, [id number] on 06/15/2025 at 03:32 PM EST Sign off status: Pending * Provider: Patricia QUACH MD Date: 0 04/10/2025 Generated for Lalita castro/Florian/eTransmitting on: 1 08/15/2024 03:32 PM EST
--- OUTSIDE RECORDS SUMMARY | 2025-05-27 08:15 | XMS_ITS ---
Author Organization [facility] Address [address] [place] [address] Care Team Providers Care Print Line Feeder Name Role Phone JOSÉ MIGUEL VILLEGAS Primary Care Provider CHANTAL DALLAS Unavailable [phone] Allergies No Known Allergies REASON FOR VISIT [...] HOURS PRN; Duration: 30 days Unknown Sutab 1841-941-514 MG Tablet 12 tablets the first dose [...] days Unknown Vitamin D (Ergocalciferol) 1.25 MG (93575 UT) Capsule TAKE 1 CAPSULE BY MOUTH [...] smoking Encounters Encounter Location Date Provider Diagnosis [place] [address] [place] [address] 05/27/2025 JOSÉ MIGUEL VILLEGAS Lumbar radiculopathy M54.16 ; Abdominal pain R10.84 ; FDC current use of opiate analgesic Z79.891 and [...] dependence, sedation, constipation, and respiratory depression. The APPLIED BIOLOGY PROFESSOR I-STOP was reviewed to ensure appropriate use [...] times daily for chronic pain management. The APPLIED BIOLOGY PROFESSOR I-STOP was reviewed for appropriate use. 2. [...] dependence, sedation, constipation, and respiratory depression. The APPLIED BIOLOGY PROFESSOR I-STOP was reviewed to ensure appropriate use [...] times daily for chronic pain management. The APPLIED BIOLOGY PROFESSOR I-STOP was reviewed for appropriate use. 2. [...] if new symptoms or concerns arise. 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 The APPLIED BIOLOGY PROFESSOR I-STOP was reviewed to ensure appropriate use [...] times daily for chronic pain management. The APPLIED BIOLOGY PROFESSOR I-STOP was reviewed for appropriate use. 2. [...] dependence, sedation, constipation, and respiratory depression. The APPLIED BIOLOGY PROFESSOR I-STOP was reviewed to ensure appropriate use [...] times daily for chronic pain management. The APPLIED BIOLOGY PROFESSOR I-STOP was reviewed for appropriate use. 2. [...] MD By signing my name below, I, Seyda Bhupinder, attest that this documentation has been [...] dependence, sedation, constipation, and respiratory depression. The APPLIED BIOLOGY PROFESSOR I-STOP was reviewed to ensure appropriate use [...] times daily for chronic pain management. The APPLIED BIOLOGY PROFESSOR I-STOP was reviewed for appropriate use. 2. [...] with IV and PO contrast for evaluation. 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 [employer] - Start 1. Sleep Study Recommended: [...] - - - -2. Last Colonoscopy: 01/19/2018 [employer] - End * HPI: H PI: [...] day Spirometer - Kit as directed Sutab 5474-202-341 MG Tablet 12 tablets the first dose the evening before and second dose the morning of colonoscopy Orally Twice a day tiZANidine HCl 4 MG Tablet TAKE 1 TABLET BY MOUTH THREE TIMES A DAY Trelegy Ellipta 100-62.5-25 MCG/ACT Aerosol Powder Breath Activated 1 puff Inhalation Once a day Vitamin D (Ergocalciferol) 1.25 MG (93367 UT) Capsule TAKE 1 CAPSULE BY MOUTH [...] Spirometer - Kit as directed Unknown Sutab 4094-304-566 MG Tablet 12 tablets the first dose the evening before and second dose the morning of colonoscopy Orally Twice a day Unknown tiZANidine HCl 4 MG Tablet TAKE 1 TABLET BY MOUTH THREE TIMES A DAY Unknown Trelegy Ellipta 100-62.5-25 MCG/ACT Aerosol Powder Breath Activated 1 puff Inhalation Once a day Unknown Vitamin D (Ergocalciferol) 1.25 MG (20715 UT) Capsule TAKE 1 CAPSULE BY MOUTH [...] dependence, sedation, constipation, and respiratory depression. The APPLIED BIOLOGY PROFESSOR I-STOP was reviewed to ensure appropriate use [...] times daily for chronic pain management. The APPLIED BIOLOGY PROFESSOR I-STOP was reviewed for appropriate use. 2. [...] * Electronic signature of WILLIAMS VILLEGAS MD, [id number] on 06/15/2025 at 03:32 PM EST Sign off status: Pending * Provider: Brodie VILLEGAS MD Date: Generated for Lalita castro/Florian/Oin on: 08/15/2024 03:32 PM EST
--- OUTSIDE RECORDS SUMMARY | 2025-05-29 08:00 | XMS_ITS ---
Author Organization [facility] C Address [address] [place] [address] Care Team Providers Care Business Insight And Analytics Manager Name Role Phone BEBETO VILLEGAS Primary Care Provider CHANTAL DALLAS Unavailable [phone] Abdomen/Pelvis w* Encounters Encounter Location Date Provider Diagnosis [address] [place] [address] 05/29/2025 BEBETO VILLEGAS Plan Of Treatment Next Appt Details Provider Name:MARY TRAORE, 10:00:00 AM, [address], [place], [address], Progress Notes * Tino CERVANTESDOB:1965 ([age] yo M)Acc No.[id number]:05/29/2025 Progress Note Patient: Tino Art Provider: Brodie VILLEGAS MD :1965 A ge:59 Y S ex:Male Date:05/29/2025 Address:[address], [address], [place], [place] Subjective: * Chief Complaints: * C T Abdomen/Pelvis w* * Electronic signature of WILLIAMS VILLEGAS MD, [id number] on 06/15/2025 at 03:31 PM EST Sign off status: Pending * Provider: Brodie VILLEGAS MD Date: Generated for Lalita castro/Florian/eTransmitting on: 08/15/2024 03:31 PM EST
--- OUTSIDE RECORDS SUMMARY | 2025-06-02 10:00 | XMS_ITS ---
Author Organization [facility] Address [address] [place] [address] Care Team Providers Care Lead Systems Architect Name Role Phone JOSÉ MIGUEL VILLEGAS Primary Care Provider [phone] CHANTLA DALLAS Unavailable [phone] Allergies No Known Allergies REASON FOR VISIT Requesting routine bw Medications Medication SIG (Take, Route, Frequency, Duration) Notes Start Date End Date Status Sutab 5649-245-632 MG Tablet 12 tablets the first dose [...] 07/26/2024 Active Vitamin D (Ergocalciferol) 1.25 MG (73553 UT) Capsule TAKE 1 CAPSULE BY MOUTH [...] 06/02/2025 Encounters Encounter Location Date Provider Diagnosis [address] [place] [address] 06/02/2025 JOSÉ MIGUEL VILLEGAS Essential hypertensi on I10 ; Abdominal pain R10.84 and Medication management Z79.899 Assessments Encounter Date [...] 06/02/2025 PSA Antigen-[facility] 06/02/2025 Thyroid Stimulating Hormone 9-Owjkg-Pdoq lica 06/02/2025 Vitamin D Total-[facility] 06/02/2025 Comp Metabolic Panel (14)-[facility] 06/02 Lipid Panel-[facility] 06/02/2025 Hemoglobin A1c * 70142 06/09/2025 ESR (sed rate) * 14999 06/09/2025 CBC W/DIFF with Refx to Retic (new) IN H OUSE *2115* 06/09/2025 Next Appt Details Follow Up: post BW results, Reason: Provider Name:MARY TRAORE, 10:00:00 AM, [address], [place], [address], History and Physical Notes * HPI (History [...] * Tino CERVANTESDOB:1965 (5 9 yo M)Acc No.[id number]:06/02/2025 progress notes Patient: Tino Art Provider: Brodie VILLEGAS MD :1965 A ge:59 Y S ex:Male Date:06/02/2025 Address:[address] [place] [address] [address], [address] [facility], [id number] Check Out:03:37 PM EST Subjective: * Chief [...] day Spirometer - Kit as directed Sutab 7336-179-101 MG Tablet 12 tablets the first dose the evening before and second dose the morning of colonoscopy Orally Twice a day tiZANidine HCl 4 MG Tablet TAKE 1 TABLET BY MOUTH THREE TIMES A DAY Trelegy Ellipta 100-62.5-25 MCG/ACT Aerosol Powder Breath Activated 1 puff Inhalation Once a day Vitamin D (Ergocalciferol) 1.25 MG (48909 UT) Capsule TAKE 1 CAPSULE BY MOUTH [...] Spirometer - Kit as directed Taking Sutab 3558-445-240 MG Tablet 12 tablets the first dose the evening before and second dose the morning of colonoscopy Orally Twice a day Taking tiZANidine HCl 4 MG Tablet TAKE 1 TABLET BY MOUTH THREE TIMES A DAY Taking Trelegy Ellipta 100-62.5-25 MCG/ACT Aerosol Powder Breath Activated 1 puff Inhalation Once a day Taking Vitamin D (Ergocalciferol) 1.25 MG (31401 UT) Capsule TAKE 1 CAPSULE BY MOUTH [...] Procedure Codes: 3 008F BODY MASS INDEX [id number] Complex e/m visit add on * Follow Up: p ost BW results Billing Information: * Procedure Codes: 3008F BODY MASS INDEX DOCD. G2211 Complex e/m visit add on. * Electronic signature of WILLIAMS VILLEGAS MD, [id number] on 06/15/2025 at 03:30 PM EST Sign off status: Pending * Provider: Brodie VILLEGAS MD Date: Generated for Lalita castro/Florian/Vincentitting on: 08/15/2024 03:30 PM EST
--- OUTSIDE RECORDS SUMMARY | 2025-06-12 12:00 | XMS_ITS ---
Author Organization [facility] C Address [address] [place] [address] Care Team Providers Care Sofa Inspector Name Role Phone JOSÉ MIGUEL VILLEGAS Primary Care Provider CHANTAL DALLAS Unavailable [phone] Allergies No Known Allergies Reason For Referral Diagnosis 1 Lumbar radiculopathy (M54.16) Referral Organization [facility] Referring Provider First Name JOSÉ MIGUEL Referring Provider Last Name NELLY Referring Provider Speciality Internal M edicine Referred Organization [facility] Referred Provider FRANCESCA HANSON Referred Address [address],[place], [place],[address], Referred Provider Specialty Orthopedic S urgery Referral Priority Routine REASON FOR VISIT Medical management of lumbar radiculopathy, C/o right shoulder pain worse, Requesting Toradol and B12 injection Medications Medication SIG (Take, Route, Frequency, Duration) Notes Start Date End Date Status James Ellipta 100-62.5-25 MCG/ACT Aerosol Powder Breath Activated 1 puff Inhalation Once a day; Duration: 30 days 07/26/2024 Active Sutab 2055-442-444 MG Tablet 12 tablets the first dose the evening before and second dose the morning of colonoscopy Orally Twice a day; Duration: 1 days 10/25/2024 Active tiZANidine HCl 4 MG Tablet TAKE 1 TABLET BY MOUTH THREE TIMES A DAY; Duration: 30 Active Spirometer - Kit as directed; Bitao n: 30 days 09/13/2024 Active Vitamin D (Ergocalciferol) 1.25 MG (39820 UT) Capsule TAKE 1 CAPSULE BY MOUTH [...] smoking Encounters Encounter Location Date Provider Diagnosis [address] [place] [address] 06/12/2025 JOSÉ MIGUEL VILLEGAS Lumbar radiculopathy M54.16 [...] 06/12/2025 06/12/2025, FRANCESCA MAYER, [address], [place], [address], Next Appt Details Follow Up: 4 Weeks, , Reason : 4 week follow up for lumbar radiculopathy, shoulder pain, and medication review Provider Name:MARY TRAORE, 10:00:00 AM, [address], [place], [address], Medications Administered Medication Instructions Date of Administration [...] JOSÉ MIGUEL VILLEGAS IMAD Progress Notes * HELEN TinoDOB:1965 ([age] yo M)Acc No.[id number]:06/12/2025 progress notes Patient: Tino Art Provider: Brodie VILLEGAS MD :1965 A ge:59 Y S ex:Male Date:06/12/2025 Address:[address] [place] [address] [address], [address] [facility], [id number] Check Out:05:13 PM EST Subjective: * Chief [...] day Spirometer - Kit as directed Sutab [id number] MG Tablet 12 tablets the first dose the evening before and second dose the morning of colonoscopy Orally Twice a day tiZANidine HCl 4 MG Tablet TAKE 1 TABLET BY MOUTH THREE TIMES A DAY Trelegy Ellipta 100-62.5-25 MCG/ACT Aerosol Powder Breath Activated 1 puff Inhalation Once a day Vitamin D (Ergocalciferol) 1.25 MG (92526 UT) Capsule TAKE 1 CAPSULE BY MOUTH [...] Spirometer - Kit as directed Taking Sutab [id number] MG Tablet 12 tablets the first dose the evening before and second dose the morning of colonoscopy Orally Twice a day Taking tiZANidine HCl 4 MG Tablet TAKE 1 TABLET BY MOUTH THREE TIMES A DAY Taking Trelegy Ellipta 100-62.5-25 MCG/ACT Aerosol Powder Breath Activated 1 puff Inhalation Once a day Taking Vitamin D (Ergocalciferol) 1.25 MG (52191 UT) Capsule TAKE 1 CAPSULE BY MOUTH [...] By signing my name below, Prateek Rosales, attfrank that this documentation has been [...] Codes: G 2211 Complex e/m visit add [id number] BODY MASS INDEX DOCD * Follow Up: 4 Weeks, (Reason: 4 week follow up for lumbar radiculopathy, shoulder pain, and medication review) Billing Information: * Procedure Codes: G2211 Complex e/m visit add on. 3008F BODY MASS INDEX DOCD. * Electronic signature of WILLIAMS VILLEGAS MD, [id number] on 06/15/2025 at 03:31 PM EST Sign off status: Pending * Provider: Brodie VILLEGAS MD Date: 08/12/2024 Generated for Lalita castro/Florian/Oni on: 08/15/2024 03:31 PM EST
--- OUTSIDE RECORDS SUMMARY | 2025-06-13 08:15 | XMS_ITS ---
Author Organization [facility] Address [address] [place] [address] Care Team Providers Care Product Engineering Manager Name Role Phone BEBETO VILLEGAS Primary Care Provider CHANTAL DALLAS Unavailable [phone] REASON FOR VISIT ALFONZO Biggs - Start , 1. Sleep Study Recommended: Yes, - - - - - - - - - - - - - - -- - - - - - - - - - - - - - - - - -, BMI: 30.54 (06/02/2025), Hypertension: Yes (02/02/2023), HeartDisease: No Results Found, - - - - - - - - - - - - - - - - - - - - - - - - - - - - - - - - -, 2. Last Colonoscopy: 01/19/2018, - - - - - - - - - - - - - - - - - - - - - - - - - - - - - - - - -, FinalDiagnosis:, Melanosis coli throughout the colon., Otherwise no evidence of any polyp seen throughout the exam. 3. Normal-appearing terminal ileum., 1+ internal hemorrhoids., - - - - - - - - - - - - -- - - - - - - - - - - - - - - - - - - -, ALFONZO Biggs - End Encounters Encounter Location Date Provider Diagnosis [facility] [address] [place] [address] 06/13/2025 BEBETO NELLY Plan Of Treatment Next Appt Details Provider Name:MARY TRAORE, 10:00:00 AM, [address], [place], [address], Progress Notes * Tino CERVANTESDOB:1965 ([age] yo M)Acc No.[id number]:06/13/2025 progress notes Patient: Tino Art Provider: Brodie VILLEGAS MD :1965 A ge:59 Y S ex:Male Date:06/13/2025 Address:[address] [place] [address] [address], [address], [id number] Subjective: * Chief Complaints: * * ALFONZO FERNANDES Insights - Start 1. Sleep Study Recommended: Yes- - - - - - - - - - - - - - - - - - - - - - - - - - - - - - - - -BMI: 30.54 (06/02/2025)Hypertension: Yes (02/02/2023)Heart Disease: No Results Found- - - - - - - - - - - - - - - - - - - - - - - - - - - - - - - - -2. Last Colonoscopy: 01/19/2018- - - - - - - - - - - - - - - - - - - - - - - - - - - - - - - - -Final Diagnosis:Melanosis coli throughout the colon.Otherwise no evidence of any polyp seen throughout the exam. 3. Normal-appearing terminal ileum.1+ internal hemorrhoids.- - - - - - - - - - - - - - - - - - - - - - - - - - - - - - - - - ALFONZO FERNANDES Insights - End * Electronic signature of WILLIAMS VILLEGAS MD, [id number] on 06/15/2025 at 03:31 PM EST Sign off status: Pending * Provider: Brodie VILLEGAS MD Date: 08/13/2024 Generated for Lalita castro/Florian/Oni on: 08/15/2024 03:31 PM EST
--- OUTSIDE RECORDS SUMMARY | 2025-06-13 13:40 | XMS_ITS | Encounter Summary ---
Author Organization [employer] Address [address] [place] [address] [address] [place] [address] Care Team Providers Care Acid Loader Name Role Phone Missy Mcwilliams MD Primary Care Provider Reason for Referral * Consultation (STAT) - Authorized Specialty Diagnoses / Procedures Referred By Kerri rodrigues Referred To Contact Diagnoses Housing insecurity Megan Mckeon FNP [address] [place] [address] Phone: tel: fax: Referral ID Status Reason Start Date Expiration Date Visits Requested Visits Authorized [id number] Authorized Specialty Services Required 06/13/2025 06/13/2026 1 1 Reason for Visit * Reason Comments Back Pain Encounter Details Date Type Department Care Team (Latest Contact Info) Description 06/13/2025 1:40 PM EST Office Visit [facility] [address] [place], [place] [id number] Lumbar radiculopathy (Primary Dx); Housing insecurity Social History Tobacco Use Types Packs/Day Years [...] with others, in a hotel, in a prison, living outside on the street, on a [...] Sign Reading Time Taken Comments Blood Pressure 140/88 06/13/2025 2:29 PM EST Pulse 77 06/13/2025 1:40 PM EST Temperature 36.3 C (97.3 F) 06/13/2025 1:40 PM EST Respiratory Rate 20 06/13/2025 1:40 PM EST Oxygen Saturation - - Inhaled Oxygen Concentration - - Weight 91.4 kg (201 lb 9.6 oz) 06/13/2025 1:40 P M EST Height 167.6 cm (5' 6 ) 06/13/2025 1:40 PM EST Body Mass Index 32.54 06/13/2025 1:40 PM EST documented in this encounter Plan of Treatment Upcoming Encounters Date Type Department Care Team (Late st Contact Info) Description 06/19/2025 1:00 PM EST Clinical Support [facility] [address] [place] [address] Mirta Valerio, ENZO [address] [place] [address] 06/19/2025 2:30 PM EST Clinical Support [facility] [address] [place] [address] 07/22/2025 10:15 AM EST Office Visit [facility] [address] [place] [address] Name, MD Nestor [address] [place] [address] Scheduled Referrals Name Type Priority Associated Diagnoses Order Schedule Referral to Care Management Outpatient Referral STAT Housing insecurity Expected: 06/13/2025 (Approximate), Expires: 06/13/2026 documented as of this encounter Visit Diagnoses Diagnosis Lumbar radiculopathy- Primary Thoracic or lumbosacral neuritis or radiculitis, unspecified Housing insecurity documented in this encounter Administered Medications Inactive Administered Medications - up to 3 most recent administrations Medication Order MAR Action Action Date Dose Rate Site ketorolac (Toradol) injection 30 mg 30 mg, Intramuscular, Once, On Mon06/13/25 at 1430, For 1 doseIndications:Lumbar radiculopathy Given 06/13/2025 2:30 PM EST 30 mg Right Deltoid documented in this encounter Additional Health Concerns Assessment Noted Time PHQ-9 Depression Total Score: 22 025 11:19 AM EDT documented as of this encounter Care Teams Acid Loader Relationship Specialty Start Date End Date Missy Mcwilliams MD [address] [place] [address] PCP - General Family Medicine 03/31/25 documented as of this encounter
--- NOTE | ~2025-06-15 | XR_ITS ---
CLINICAL HISTORY: pain. fracture? 2 views right hip with AP pelvis Comparison: None Findings: No fractures or dislocations. No significant hip arthritic change. Lower lumbar degenerative changes are present. No radiopaque foreign body. Impression: 1. Unremarkable right hip This document has been electronically signed by: Romeo Sierra MD on 06/15/2025 16:03:53
--- NOTE | ~2025-06-15 | XR_ITS ---
CLINICAL HISTORY: back pain 3 views lumbar spine Comparison: None Findings: No fractures or dislocations. There is slight levoconvex curvature of the mid lumbar spine. There is diffuse moderate lumbar vertebral body spurring, more significant L1-L4. There is some disc space narrowing, most significant at L2-3 level. There is bilateral facet arthropathy, more significant L4-S1.. Impression: 1. Lumbar degenerative changes as described above. This document has been electronically signed by: Romeo Sierra MD on 06/15/2025 16:05:00
[2025-06-15 14:20] VITALS: BP 153/110; PULSE 80; RESP 18; TEMP 36.6; O2SAT 98; BMI 30.9
--- NOTE | 2025-06-15 14:27 | ED.GENADULT ---
HPI - General Adult General Chief complaint: Back Pain/Injury Stated complaint: back pain Time Seen by Provider: 06/15/25 17:46 Source: patient Mode of arrival: ambulatory Limitations: no limitations History of Present Illness ED Provider: HPI narrative: 59-year-old male presenting with spasm paraspinal right lower flank, history of back issues and prior rib fractures, has tizanidine at home, scheduled to see pain management, no abdominal pain no fevers or chills no nausea no vomiting no numbness in the groin no loss of bowel or bladder function, no IV drug use. Related Data Home Medications ?Medication ?Instructions ?Recorded ?Confirmed albuterol sulfate 90 mcg/actuation 2 puff inhalation Q6H PRN 05/01/25 aerosol inhaler (Ventolin HFA) fluticasone fur. 100 mcg-umeclid 1 inh inhalation DAILY 05/01/25 62.5 mcg-vilant 25 mcg inhalat.powder (Trelegy Ellipta) montelukast 10 mg tablet 10 mg PO BEDTIME 05/01/25 oxycodone 5 mg capsule 5 mg PO QID PRN 05/01/25 tizanidine 4 mg tablet 4 mg PO Q8H PRN 05/01/25 zolpidem 10 mg tablet (Ambien) 10 mg PO BEDTIME PRN 05/01/25 Previous Rx's ?Medication ?Instructions ?Recorded capsaicin 0.025 % topical patch 1 patch topical BID PRN spasm #10 06/15/25 ea diazepam 2 mg tablet (Valium) 2 mg PO TID spasms 2 days #6 tabs 06/15/25 Allergies Allergy/AdvReac Type Severity Reaction Status Date / Time No Known Allergies Allergy Verified 06/15/25 14:21 Review of Systems Constitutional: Constitutional: Reports as per [facility] Past Medical History Medical History GERD (gastroesophageal reflux disease) Asthma Insomnia Hypertension Chronic pain of both shoulders Osteoarthritis of both knees Left wrist pain Cervical pain Chronic low back pain Lumbar degenerative disc disease Lumbar radiculopathy Lumbar spinal stenosis Surgical History History of carpal tunnel surgery of right wrist Physical Exam ED Exam Exam: Patient is ambulatory No weakness or numbness bilateral lower extremities He has paraspinal tenderness on the right, no midline tenderness And nontender nondistended abdomen. Vital Signs: Vital Signs - 24 hr 06/15/25 14:20 06/15/25 18:40 06/15/25 18:54 Temperature 98 F 97.9 F 97.9 F Pulse Rate 80 75 75 Respiratory Rate 18 16 16 Blood Pressure 153/110 H 152/90 H 152/90 H Pulse Oximetry 98 98 98 Oxygen Delivery Method Room Air Room Air Room Air BMI result Body Mass Index 30.9 Course Course Course Narrative: RME: 59 year male presents to the ED for Right lower hip/back pain that is worse on movement without any trauma. Patient denies any abdominal pain, testicular pain dysuria or hematuria. Medications Administered Discontinued Medications Generic Name Dose Route Start Last Admin Trade Name Freq PRN Reason Stop Dose Admin Ketorolac Tromethamine 15 mg 06/15/25 18:08 06/15/25 18:22 Ketorolac Tromethamine 15 Mg/Ml Vial IM 06/15/25 18:09 15 mg ONCE ONE Administration Lidocaine 1 patch 06/15/25 18:08 06/15/25 18:22 Lidocaine 4 % Patch Adh..Patch TRANSDERMA 06/15/25 18:09 1 patch ONCE ONE Administration Protocol Medical Decision Making Medical Decision Making [facility] Narrative: 6:04 PM 06/15/2025 (Dr. Valentino Montes): No red flags for diskitis osteomyelitis spinal epidural abscess patient is rinse history than Toradol shot, this does not appear to be a kidney stone, had blood work urinalysis x-rays all of which has been reassuring, we will discharge with supportive medications to home. Differential Diagnosis Differential Diagnoses: The differential diagnosis associated with the presentation includes (Diskitis, osteomyelitis, spinal epidural abscess, cauda equina, musculoskeletal pain) Admission/Observation Consideration of admission/observation: Escalation of care including admission/observation considered Lab Data [facility] Lab Attestation statement: I reviewed the patient's lab results. 06/15/25 14:32 06/15/25 14:32 Labs: Lab Results 06/15/25 Range/Units 14:32 WBC 8.5 (4.8-10.8) X10*3/uL RBC 5.10 (4.60-5.80) X10*6/uL Hgb 14.7 (14.0-18.0) g/dl Hct 44.3 (42.0-52.0) % MCV 86.9 (80.0-98.0) fL MCH 28.8 (27.0-33.0) pg MCHC 33.2 (31.0-36.0) g/dl RDW 13.6 (11.0-16.0) % Plt Count 299 (160-400) X10*3/uL MPV 8.7 L (9.4-12.4) fL Immature Gran % (Auto) 0.2 (0.0-0.4) % Neut % (Auto) 63.6 (45-73) % Lymph % (Auto) 27.7 (20-40) % [place] % (Auto) 5.4 (2-11) % Eos % (Auto) 2.6 (0-4) % Baso % (Auto) 0.5 (0-2) % Lymph # (Auto) 2.4 (1.2-4.9) X10*3/uL [place] # (Auto) 0.5 (0.1-1.2) X10*3/uL Eos # (Auto) 0.2 (0.0-0.4) X10*3/uL Baso # (Auto) 0.0 (0.0-0.2) X10*3/uL Abs Immat Gran (auto) 0.02 (0.00-0.03) X10*3/uL Absolute Neuts (auto) 5.4 (2.0-8.3) x10*3/uL Absolute Nucleated RBC 0.000 (0.0-0.012) X10*3/uL Nucleated RBC % (auto) 0.0 (0.0-0.2) /100WBC Sodium 140 (135-145) mmol/L Potassium 4.1 (3.3-5.1) mmol/L Chloride 106 (96-108) mmol/L Carbon Dioxide 27 (22-29) mmol/L Anion Gap 11 L (12-20) BUN 15 (9-16) mg/dL Creatinine 0.93 (0.5-1.4) mg/dL Estim Creat Clear Calc 93.4 Estimated GFR > 60 Random Glucose 90 (60-115) mg/dL Calcium 9.2 (8.4-10.2) mg/dL Total Bilirubin 0.4 (0.0-1.0) mg/dL AST 26 (5-37) U/L ALT 20 (0-40) U/L Alkaline Phosphatase 92 (39-117) U/L Total Protein 6.7 (6.5-8.0) g/dL Albumin 4.5 (3.5-5.0) g/dL Urine Color Yellow Urine Appearance Clear Urine pH 6.5 (5.0-9.0) Ur Specific [place] 1.010 (1.005-1.025) Urine Protein Negative (Neg-Trace) mg/dL Urine Glucose (UA) Negative (Negative) mg/dL Urine Ketones Negative (Negative) mg/dL Urine Blood Negative (Negative) Urine Nitrite Negative (Negative) Ur Leukocyte Esterase Negative (Negative) Independent Interpretation I performed an independent interpretation of an: Plain X-Ray (Arthritic changes, worse in the L2-L3 area and upper lumbar and lower thoracic) Radiology Impression Discussion of test interpretation with radiology: I have reviewed the radiologist's reading. Radiologist Impression: Findings: No fractures or dislocations. There is slight levoconvex curvature of the mid lumbar spine. There is diffuse moderate lumbar vertebral body spurring, more significant L1-L4. There is some disc space narrowing, most significant at L2-3 level. There is bilateral facet arthropathy, more significant L4-S1.. Impression: 1. Lumbar degenerative changes as described above. Discharge Plan Discharge Clinical Impression: Lumbar radiculopathy Patient Disposition: Home, Self-Care Additional Instructions: Try capsaicin ointment patches I think they work very well for spasms, instead of tizanidine try Valium 2-4 mg every 6-8 hours, do not mix with alcohol, continue other care, any other issues or concerns come back to the ER Valium can make you drowsy X-rays reveal arthritic changes, blood work urinalysis reassuring Prescriptions: New diazepam [Valium] 2 mg tablet 2 mg PO TID 2 Days Qty: 6 0RF capsaicin 0.025 % adhesive patch,medicated 1 patch topical BID PRN (Reason: spasm) Qty: 10 0RF Rx Instructions: do not leave patch on for more than 8 hrs No Action tizanidine 4 mg tablet 4 mg PO Q8H PRN oxycodone 5 mg capsule 5 mg PO QID PRN montelukast 10 mg tablet 10 mg PO BEDTIME zolpidem [Ambien] 10 mg tablet 10 mg PO BEDTIME PRN albuterol sulfate [Ventolin HFA] 90 mcg/actuation HFA aerosol inhaler 2 puff inhalation Q6H PRN Trelegy Ellipta 100-62.5-25 mcg blister with device 1 inh inhalation DAILY Interventions: ED Discharge Assessment Last Done: 06/15/25 18:54 Discharge Date/Time: 06/15/25 18:54 Print Language: Vietnamese
[2025-06-15 14:36] LABS: MANUAL DIFF FLAG NO
[2025-06-15 14:38] LABS: Hematocrit 44.3 % (42.0-52.0); Hemoglobin 14.7 g/dl (14.0-18.0); Imm Gran Abs Auto 0.02 X10*3/uL (0.00-0.03); Imm Gran Pct Auto 0.2 % (0.0-0.4); Lymphocytes Absolute Auto 2.4 X10*3/uL (1.2-4.9); Mean Corpuscular HGB Conc 33.2 g/dl (31.0-36.0); Mean Corpuscular Hemoglobin 28.8 pg (27.0-33.0); Mean Corpuscular Volume 86.9 fL (80.0-98.0); NRBC Abs Auto 0.000 X10*3/uL (0.0-0.012); NRBC Pct Auto 0.0 /100WBC (0.0-0.2); Platelet Count 299 X10*3/uL (160-400); Red Blood Count 5.10 X10*6/uL (4.60-5.80); White Blood Count 8.5 X10*3/uL (4.8-10.8)
[2025-06-15 14:41] LABS: Appearance Urine Clear; Glucose Urine UA Negative (Negative); PH 6.5 (5.0-9.0); Specific Gravity - Urine 1.010 (1.005-1.025)
[2025-06-15 14:54] LABS: Alanine Aminotransferase 20 U/L (0-40); Albumin Level 4.5 g/dL (3.5-5.0); Alkaline Phosphatase 92 U/L (39-117); Anion Gap 11 (12-20); Aspartate Amino Transferase 26 U/L (5-37); Blood Urea Nitrogen 15 mg/dL (9-16); Calcium 9.2 mg/dL (8.4-10.2); Carbon Dioxide 27 mmol/L (22-29); Chloride 106 mmol/L (96-108); Creatinine Clr Calc Pharmacy 93.4; Estimated Glomerular Filt Rate > 60; Potassium 4.1 mmol/L (3.3-5.1); Sodium 140 mmol/L (135-145); Total Protein 6.7 g/dL (6.5-8.0)
--- OUTSIDE RECORDS SUMMARY | 2025-06-15 15:30 | XMS_ITS | Encounter Summary ---
Author Organization [employer] Address [address] [place] [address] 7[address] [place] [address] Care Team Providers Care Avaya Engineer Name Role Phone Missy Mcwilliams MD Primary Care Provider [phone] Reason for Visit * Reason Onset Date Comments Medication Question 06/09/2025 Encounter Details Date Type Department Care Team ([facility] st Contact Info) Description 06/09/2025 Telephone [facility] [address] [place] [address] Missy Mcwilliams MD [address] [place] [address] Medication Question Social History Tobacco Use Types Packs/Day Years [...] with others, in a hotel, in a jail, living outside on the street, on a [...] encounter Miscellaneous Notes * Telephone Encounter - Dee Dee Stone LPN - 06/12/2025 1:02 PM EST Pa can't be completed at this time due to medication being picked up too soon * Telephone Encounter - Missy Mcwilliams MD - 06/10/2025 1:39 PM EST Please sent a PA for ambien for 1 month. * Telephone Encounter - Philippe Garcia - 06/09/2025 4:34 PM EST Tc from pt calling for zolpidem (Ambien) 10 MG tablet stating he only has about 4 days worth of medication left. Pt also states medication needs a PA for the full 30 day script to be approved. Please contact pt at [phone]. (Kazakh Speaker) documented in this encounter Plan of Treatment Upcoming Encounters Date Type Department Care Team (Jason Contact Info) Description 06/19/2025 1:00 PM EST Clinical Support [facility] [address] [place] [address] Mirta Valerio, ENZO [address] [place] [address] 06/19/2025 2:30 PM EST Clinical Support [facility] [address] [place] [address] 07/22/2025 10:15 AM EST Office Visit [facility] [address] [place] [address] Name, MD Nestor [address] [place] [address] documented as of this encounter Visit Diagnoses Not on filedocumented in this encounter Additional Health Concerns Assessment Noted Time PHQ-9 Depression Total Score: 22 025 11:19 AM EDT documented as of this encounter Care Teams Avaya Engineer Relationship Specialty Start Date End Date Missy Mcwilliams MD [address] [place] [address] PCP - General Family Medicine 03/31/25 documented as of this encounter
--- OUTSIDE RECORDS SUMMARY | 2025-06-15 15:30 | XMS_ITS | Encounter Summary ---
Author Organization [employer] Address [address] [place] [address] 7t [place] [address] Care Team Providers Care Training Consultant Name Role Phone Missy Mcwilliams MD Primary Care Provider Reason for Visit * Reason Onset Date Comments call back 06/10/2025 Encounter Details Date Type Department Care Team ([facility] st Contact Info) Description 06/10/2025 Telephone [facility] MEDICINE [address] [place] [address] Missy Mcwilliams MD [address] [place] [phone] call back Social History Tobacco Use Types Packs/Day Years [...] with others, in a hotel, in a mcc, living outside on the street, on a [...] encounter Miscellaneous Notes * Telephone Encounter - Bren Hsu - 06/10/2025 2:35 PM EST Tc from pt requesting an call back Contact pt at [phone] documented in this encounter Plan of Treatment Upcoming Encounters Date Type Department Care Team (Late st Contact Info) Description 06/19/2025 1:00 PM EST Clinical Support [facility]ED[facility] [address] [place] [address] Mirta Valerio, ENZO [address] [place] [address] 06/19/2025 2:30 PM EST Clinical Support [facility] [address] [place] [address] 07/22/2025 10:15 AM EST Office Visit [facility] MEDICINE [address] [place] [phone] Name, MD Nestor [address] [place] [address] documented as of this encounter Visit Diagnoses Not on filedocumented in this encounter Additional Health Concerns Assessment Noted Time PHQ-9 Depression Total Score: 22 025 11:19 AM EDT documented as of this encounter Care Teams Training Consultant Relationship Specialty Start Date End Date Missy Mcwilliams MD [address] [place] [address] PCP - General Family Medicine 03/31/25 documented as of this encounter
--- OUTSIDE RECORDS SUMMARY | 2025-06-15 15:30 | XMS_ITS | Encounter Summary ---
Author Organization [employer] Address [address] [facility] 7t [place] [address] Care Team Providers Care Biometrics Consultant Name Role Phone Missy Mcwilliams MD Primary Care Provider Encounter Details Date Type Department Care Team (Latest Contact Info) Description 06/13/2025 Travel Social History Tobacco Use Types Packs/Day [...] with others, in a hotel, in a senior living, living outside on the street, on a [...] [facility] [address] [place] [address] Mirta Valerio RN [address] [place] [address] 06/19/2025 2:30 PM EST Clinical Support [facility] [address] [place] [address] 07/22/2025 10:15 AM EST Office Visit [facility] MED[facility] [address] [place] [address] NameNestor MD [address] [place] [address] documented as of this encounter Visit Diagnoses Not on filedocumented in this encounter Additional Health Concerns Assessment Noted Time PHQ-9 Depression Total Score: 22 025 11:19 AM EDT documented as of this encounter Care Teams Biometrics Consultant Relationship Specialty Start Date End Date Missy Mcwilliams MD [address] [place] [address] PCP - General Family Medicine 03/31/25 documented as of this encounter
--- OUTSIDE RECORDS SUMMARY | 2025-06-15 15:30 | XMS_ITS | Encounter Summary ---
Author Organization [employer] Address [address] [place] [address] 7 [place] [address] Care Team Providers Care Engraver Machine Name Role Phone Missy Mcwilliams MD Primary Care Provider [phone] Encounter Details Date Type Department Care Team ([facility] Contact Info) Description 05/09/2025 Orders Only [facility] MED & PEDS [address] [place] [address] Luiza Resendiz MD [address] [place] [address] Social History Tobacco Use Types Packs/Day Years [...] Upcoming Encounters Date Type Department Care Team ([facility] Contact Info) Description 06/19/2025 1:00 PM EST Clinical Support [facility] MED [facility] [address] [place] [address] Mirta Valerio RN [address] [place] [address] 06/19/2025 2:30 PM EST Clinical Support [facility] [address] [place] [address] 07/22/2025 10:15 AM EST Office Visit [facility] MEDICINE [address] [place] [address] Name, MD Nestor [address] [place] [address] documented as of this encounter Visit Diagnoses Not on filedocumented in this encounter Care Teams Engraver Machine Relationship Specialty Start Date End Date Missy Mcwilliams MD [address] [place] [address] PCP - General Family Medicine 03/31/25 documented as of this encounter
--- OUTSIDE RECORDS SUMMARY | 2025-06-15 15:30 | XMS_ITS | Encounter Summary ---
Author Organization [employer] Address [address] [place] [address] [place] [address] Care Team Providers Care Shirt Maker Name Role Phone Missy Mcwilliams MD Primary Care Provider [phone] Reason for Visit * Reason Onset Date Comments Med Refill 05/09/2025 Encounter Details Date Type Department Care Team (Late st Contact Info) Description 05/09/2025 Refill [facility]ED[facility] [address] [place] [address] Missy Mcwilliams MD [address] [place] [address] Lumbar radiculopathy (Primary Dx) Social History Tobacco [...] 1:09 PM EDT TC to pt, initial BOOK CRITIC appointment scheduled for 05/15/25 @3pm. * Telephone Encounter - Nuris Peña - 05/09/2025 12:55 PM EDT TC from pt requesting medication refill. Medications needing refill : oxyCODONE (Roxicodone) 5 MG immediate release tablet To be sent to: [facility]/pharmacy #[id number] - [facility] [address] [facility] documented in this encounter Plan of Treatment Upcoming Encounters Date Type Department Care Team (Late st Contact Info) Description 06/19/2025 1:00 PM EST Clinical Support [facility] MED & PEDS [address] [place] [address] Mirta Valerio, ENZO [address] [place] [address] 06/19/2025 2:30 PM EST Clinical Support [facility] MED [facility] PED[facility] [address] [place] [address] 07/22/2025 10:15 AM EST Office Visit [facility] MEDICINE [address] [place] [address] Name, MD Nestor [address] [place] [address] documented as of this encounter Visit Diagnoses Diagnosis Lumbar radiculopathy- Primary Thoracic or lumbosacral neuritis or radiculitis, unspecified documented in this encounter Care Teams Shirt Maker Relationship Specialty Start Date End Date Missy Mcwilliams MD [address] [place] [address] PCP - General Family Medicine 03/31/25 documented as of this encounter
--- OUTSIDE RECORDS SUMMARY | 2025-06-15 15:30 | XMS_ITS | Encounter Summary ---
Author Organization [email or web address] Address [address] [place] [address] 7 [place] [address] Care Team Providers Care Client Care Manager Name Role Phone Missy Mcwilliams MD Primary Care Provider Reason for Visit * Reason Onset Date Comments Med Refill 06/09/2025 Encounter Details Date Type Department Care Team ([facility] st Contact Info) Description 06/09/2025 Telephone [facility] MEDICINE [address] [place] [address] Missy Mcwilliams MD [address] [place] [address] Med Refill Social History Tobacco Use Types [...] with others, in a hotel, in a fpc, living outside on the street, on a [...] Telephone Encounter - Faye Ordonez LPN - 06/09/2025 11:27 AM EST STILL PUMP OPERATOR checked on 06/09/25 medication last sold on 06/02/25 #15 to soon for refill. * Telephone Encounter - Franki Garcia - 06/09/2025 11:23 AM EST TC from pt requesting medication refill. Medications needing refill : zolpidem (Ambien) 10 MG tablet To be sent to: [facility]/pharmacy #[id number] [place], [place] - [address] [facility] documented in this encounter Plan of Treatment Upcoming Encounters Date Type Department Care Team ([facility] st Contact Info) Description 06/19/2025 1:00 PM EST Clinical Support [facility] [address] [place] [address] Mirta Valerio, RN [address] [place] [address] 06/19/2025 2:30 PM EST Clinical Support [facility] [address] [place] [address] 07/22/2025 10:15 AM EST Office Visit [facility] MEDICINE [address] [place] [address] Name, MD Nestor [address] [place] [address] documented as of this encounter Visit Diagnoses Not on filedocumented in this encounter Additional Health Concerns Assessment Noted Time PHQ-9 Depression Total Score: 22 025 11:19 AM EDT documented as of this encounter Care Teams Client Care Manager Relationship Specialty Start Date End Date Missy Mcwilliams MD [address] [place] [address] PCP - General Family Medicine 03/31/25 documented as of this encounter
--- OUTSIDE RECORDS SUMMARY | 2025-06-15 15:30 | XMS_ITS | Clinical Summary ---
Author Organization [employer] Address [address] [place] [address] [address] [place] [address] Care Team Providers Care Fnp Name Role Phone Missy Mcwilliams MD Primary Care Provider [phone] Allergies No known active allergies Medications * [...] medical assistance becomes available. 2 each 2 025 2025 Active Blood Pressure kit 1 Units Once per day. 1 kit Active oxyCODONE (Roxicodone) 10 MG immediate release tabletIndication s:Lumbar radiculopathy Take 1 tablet (10 mg) by mouth every 6 (six) hours if needed for severe pain for up to 28 days. 112 tablet 2024 Active zolpidem (Ambien) 10 MG tablet TAKE 1 TABLET BY MOUTH AT BEDTIME NEEDED FOR SLEEP 28 tablet 1 Active Blood Pressure kitIndications:P rimary hypertension 1 [...] for up to 14 days. 56 tablet 2024 Discontinued(T herapy completed) zolpidem (Ambien) 10 MG tablet TAKE 1 TABLET BY MOUTH AT BEDTIME NEEDED FOR SLEEP 15 tablet 1 2024 Discontinued(R eorder (will not trigger notification to Pharmacy)) cyclobenzaprine (Flexeril) 10 MG tablet PLEASE SEE ATTACHED FOR DETAILED DIRECTIONS 2024 Discontinued(T herapy completed) Hospital, Clinic, or Other Facility Administered Medication Ordered Dose Route Frequency Start Date End Date Status ketorolac (Toradol) injection 30 mgIndications:Lumbar radiculopathy 30 mg IM Once 06/13/2025 06/13/2025 Ended Active Problems Problem Noted Date Diagnosed Date [...] organization. Date Type Department Care Team Description 06/13/2025 1:40 PM EST Office Visit [facility] [address] [place] [phone] Lumbar radiculopathy (Primary Dx); Housing insecurity 06/13/2025 Travel 06/10/2025 Telephone [facility] [address] [place] [phone] Missy Mcwilliams MD call back 06/09/2025 Telephone [facility] [address] [place] [phone] Missy Mcwilliams MD Medication Question 06/09/2025 Telephone [facility] [address] [place] [phone] Missy Mcwilliams MD Med Refill 06/04/2025 Telephone [facility] [address] [place] [phone] Missy Mcwilliams MD Prior Authorization 06/02/2025 11:00 AM EDT Office Visit [facility] [address] [place] [address] Missy Mcwilliams MD Long-term current use of opiate analgesic (Primary Dx); Lumbar radiculopathy; Periumbilical hernia 06/02/2025 Travel 05/30/2025 Telephone [facility] [address] [place] [address] Missy Mcwilliams MD Chart Prep 05/29/[address] [phone] Missy Mcwilliams MD Med Refill 05/27/2025 Telephone [facility] [address] [place] [address] Missy Mcwilliams MD Change PCP 05/22/[address] [phone] Missy Mcwilliams MD Med Refill 05/22/[address] [address] Missy Mcwilliams MD Med Refill 05/22/2025 Refill [facility] [address] [place] [address] Missy Mcwilliams MD 05/21/2025 Refill [facility] [address] [place] [address] Missy Mcwilliams MD 05/21/2025 Refill [facility] [address] [place] [address] Missy Mcwilliams MD Lumbar radiculopathy 05/15/2025 3:00 PM EDT Clinical Support [facility] [address] [place] [address] Mirta Valerio RN Lumbar radiculopathy (Primary Dx); Long-term current use of opiate analgesic 05/15/2025 Travel 05/14/2025 Telephone [facility] [address] [place] [address] Missy Mcwilliams MD Referral 05/09/2025 Orders Only [facility] [address] [place] [address] Luiza Resendiz MD 05/09/2025 Refill [facility] [address] [place], [place] [phone] Missy Mcwilliams MD Lumbar radiculopathy (Primary Dx) 05/05/2025 Telephone [facility] [address] [place], [place] [phone] Missy Mcwilliams MD Prior Authorization 05/05/2025 Telephone [facility] [address] [place], [place] [phone] Missy Mcwilliams MD Med Refill 04/28/2025 Refill [facility] [address] [place], [place] [phone] Missy Mcwilliams MD 04/15/2025 Telephone [facility] [address] [place], [place] [phone] Mirta Valerio, ENZO 04/15/2025 Telephone [facility] [address] [place] [address] Mirta Valerio, RN 04/14/2025 Telephone [facility] [address] [place], [place] [phone] Mirta Valerio, RN 04/14/2025 Telephone [facility] [address] [place] [address] Mirta Valerio, RN 04/11/2025 Telephone [facility] [address] [place] [address] Mirta Valerio, tray packer Question 04/10/2025 Telephone [facility] [address] [place] [phone] Missy Mcwilliams MD Medication Question 04/02/2025 Telephone [facility] [address] [place] [phone] Missy Mcwilliams MD FYI 04/01/2025 Telephone [facility] [address] [place] [address] Missy Mcwilliams MD 03/31/2025 Telephone [facility] [address] [place] [address] Missy Mcwilliams MD Prior Authorization 03/28/2025 1:15 PM EDT Office Visit [facility] [address] [place] [address] Missy Mcwilliams MD Lumbar radiculopathy (Primary Dx); Dietary counseling; Exercise counseling; Class 1 obesity with serious comorbidity and body mass index (BMI) of 31.0 to 31.9 in adult, unspecified obesity type; Left wrist pain; Cervical pain (neck); Colon cancer screening; Prostate cancer screening; Primary hypertension; Encounter for health-related screening 03/28/2025 Travel 03/20/2025 Patient Outreach [facility] [address] [place] [phone] Navarro Ariza MD Pre-visit Planning (Pre visit planning LVM ) 03/19/2025 Telephone [facility] [address] [place] [address] Missy Mcwilliams MD chart prep from Last [...] with others, in a hotel, in a residential, living outside on the street, on a [...] 20 06/13/2025 1:40 PM EST Oxygen Saturation 98% 06/02/2025 11:16 AM EDT Inhaled Oxygen Concentration - - Weight 91.4 kg (201 lb 9.6 oz) 06/13/2025 1:40 P M EST Height 167.6 cm (5' 6 ) 06/13/2025 1:40 PM EST Body Mass Index 32.54 06/13/2025 1:40 PM EST Plan of Treatment Upcoming Encounters Date Type Department Care Team (Late st Contact Info) Description 06/19/2025 1:00 PM EST Clinical Support [facility] [address] [place] [address] Mirta Valerio, RN [address] [place] [address] 06/19/2025 2:30 PM EST Clinical Support [facility] [address] [place] [address] 07/22/2025 10:15 AM EST Office Visit [facility] [address] [place] [address] Name, MD Nestor [address] [place] [address] Health Maintenance Due Date Last Done Comments [...] 12/2017 (Patient Refused) SDOH Screening 06/02/2026 06/02/2025 Zoster Vaccines (1 of 2) 06/02/2026 Pos tponed from 10/09/2017 (Patient Refused) Tobacco Screening 06/13/2026 06/13/2025 RSV Patients and Patients Aged 60 years [...] Unknown 05/15/2025 3:13 PM EDT Narrative Mirta Valerio RN - 05/15/2025 3:13 PM EDT . Internal Pass Control Lot# [id number] Exp: 06-06-26 Missy Mcwilliams MD POINT OF CARE TEST ENTER/EDIT ORDERABLES Final Result from Last 3 Months Insurance [facility] Care Teams Fnp Relationship Specialty Start Date End Date Missy Mcwilliams MD [address] [place] [address] PCP - General Family Medicine 03/31/25
--- OUTSIDE RECORDS SUMMARY | 2025-06-15 15:32 | XMS_ITS | Patient Health Record ---
Author Organization [facility] C Address [address] [place] [address] Care Team Providers Care Appraisal Coordinator Name Role Phone BEBETO VILLEGAS Primary Care Provider CHANTAL DALLAS Unavailable [phone] HIRAM BUCK Unavailable [phone] ALIE SCHULTE Unavailable [phone] GRACE HERRERA Unavailable [phone] RANDY, NATHANIEL Unavailable Unavailable IRENE GUALLPA Unavailable [phone] YOLANDACALE Unavailable [phone] DANNY HEREDIA Unavailable [phone] JANET SHIPMAN Unavailable [phone] CEASAR LOCO Unavailable [phone] ERIN CONLEY Unavailable [phone] RODOLFO MEZA Unavailable [phone] BHARAT DAO Unavailable [phone] FABIEN JOHNSON Unavailable [phone] MAMMJOSE Morley Unavailable [phone] MARY TRAORE Unavailable [phone] SERANTHONY SYLVESTER Unavailable [phone] JACEK HEATON Unavailable [phone] CAROLANN DALLAS Unavailable [phone] DICKSON PATTON Unavailable [phone] Allergies No Known Allergies Results Component Value Reference Range Flag Notes ID NOW Strep A 2 [id number] Reviewed date:08/19/2024 06:40:02 PM Interpretation: Performing Lab: Notes/Report: PCR Respiratory Panel*58 Reviewed date:08/20/2024 03:35:15 PM Interpretation: Performing Lab: Notes/Report: Virokey Influenza A PCR* Negative Negativ e\.br\(Ref er to value/result column\.br\for results) Note: Preferable reference range is Negative, reference range does not indicate your result. Please Note: The Adviesmanager[employer]nl Influenza A RT PCR assay is assesed using the Adviesmanager[employer]nl SX Virus Nucleic Acid Kit isintended for the qualitative detection of RNA from Influenza A/B in nasopharyngeal and authorized by the FDA under an EUA for use by authorized high complexity laboratories. This test provider. Diagnostics. The VirECO Films Influenza A RT PCR has not been FDA cleared or approved; it has been oropharygeal swabs from individuals who are suspected of Influenza A by their healther care see the Value/Result column for your actual result. on the Jump [employer] Fall SX101, as well as RT-PCR run on the [employer] SA201 insturment from [employer] Respiratory Syncytial Virus (RSV)* Negative Negative\.br\(Ref er to value/result column\.br\for results) ViroKey Influenza A/B RT PCR has not been FDA cleared or approved; it has been authorized by the Jump or Fall SX1PxRadia, as well as RT-PCR run on the [employer] SA201 insturment from [employer] Diagnostics. The who are suspected of RSV by their healther care provider. Note: The Adviesmanager[employer]nl RSV RT PCR assay is assesed using the Adviesmanager[employer]nl SX Virus Nucleic Acid Kit on the [...] Influenza A/B in nasopharyngeal and Diagnostics. The VirLeisureLinky Influenza A RT PCR has not been FDA cleared or approved; it has been on the T[employer]osa SX101, as well as RT-PCR run on the Sentosa SA201 insturment from [employer] provider. oropharygeal swabs from individuals who are suspected of Influenza B by their healther care Note: The ViroKey Influenza B RT PCR assay is assesed using the [employer]manager[employer] SX Virus Nucleic Acid Kit ViroKey SARS-CoV-2 RT PCR Positive Negati ve\.br\(Ref er to value/result column\.br\for results) CT Values POS justifying the authorization of emergency use of in vitro diagnostic tests for detection and/or Note: The ViroKey SARS-CoV-2 RT PCR assay is assesed using the Adv[employer]manager[employer]nl SX Virus Nucleic Acid Kit SARS-CoV-2 RT PCR is only authorized for the duration of the declaration that circumstances exists on the [facility] S[facility], as well as RT-PCR run on the Sentosa SA201 insturment from [employer] swabs from individuals who are suspected of COVID-19 by their healther care provider. The Adviesmanager.nl isintended for the qualitative detection of RNA from SARS-CoV-2 in nasopharyngeal and oropharygeal see the Value/Result column for your actual result. Note: Preferable reference range is Negative, reference range does not indicate your result. Please Diagnostics. The VirLeisureLinky SARS-CoV-2 RT PCR has not been FDA cleared or approved; it has been authorization is terminated or revoked. diagnosis of COVIC-19 under Section 564(b)(1) of Act, 21 U.S.C SS 360bb-3(b)(1), unless the authorized by the FDA under an EUA for use by authorized high complexity laboratories. This test Upper Respiratory Culture (T hroat Culture) [facility] [id number] Reviewed date:08/23/2024 07:20:44 PM Interpretation: Performing Lab: Notes/Report: Source? : Location Specimen Obtained from Patient THROAT Upper Respiratory Culture Final report Result 1 Comment Routine respir atory jordan Influenza A/B & COVID 19 Ag* 54 Reviewed date:08/19/2024 06:40:02 PM Interpretation: Performing Lab: Notes/Report: CT Abdomen/Pelvis w* Reviewed date:10/03/2024 11:59:06 AM Interpretation: [...] effusion. No suspicious pulmonary mass or consolidation. Respiratory Panel*58 Reviewed date:10/21/2024 12:19:35 PM Interpretation: Performing Lab: Notes/Report: jr Virokey Influenza A PCR* Negative Negativ e\.br\(Ref er to value/result column\.br\for results) on the Santosa SX101, as well as RT-PCR run on the Sentosa SA201 insturment from [employer]. The ViroKey Influenza A RT PCR has not been FDA cleared or approved; it has been see the Value/Result column for your actual result. isintended for the qualitative detection of RNA from Influenza A/B in nasopharyngeal and authorized by the FDA under an EUA for use by authorized high complexity laboratories. This test Note: The ViroKey Influenza A RT PCR assay is assesed using the [employer] SX Virus Nucleic Acid Kit Note: Preferable [...] in nasopharyngeal and oropharygeal swabs from individuals [facility] SX101, as well as RT-PCR run on the Sentosa SA201 insturment from [employer]. The Note: The ViroKePassKit RSV RT PCR assay is assesed using the Adviesmanager.nl SX Virus Nucleic Acid Kit on the Note: Preferable reference range is Negative, reference range does not indicate your result. Please Virokey Influenza B PCR* Negative Negative on the [facility] SX101, as well as RT-PCR run on the Sentosa SA201 insturment from [employer] see the Value/Result column for your actual result. Note: The ViroKey Influenza B RT PCR assay is assesed using the [employer]O Films SX Virus Nucleic Acid Kit oropharygeal swabs [...] high complexity laboratories. This test Note: The Adviesmanager[employer]nl SARS-CoV-2 RT PCR assay is assesed using the Adviesmanager[employer]nl SX Virus Nucleic Acid Kit swabs from individuals who are suspected of COVID-19 by their healther care provider. The [employer]iesmanager[employer]nl diagnosis of COVIC-19 under Section 564(b)(1) of Act, 21 U.S.C SS 360bb-3(b)(1), unless the justifying the authorization of emergency use of in vitro diagnostic tests for detection and/or on the Santosa SX101, as well as RT-PCR run on the Sentosa SA201 insturment from [facility] authorization is terminated or revoked. Diagnostics. The Dianay SARS-CoV-2 RT PCR has not been FDA cleared or approved; it has been see the Value/Result column for your actual result. CBC W/DIFF with Refx to Reti c [...] Comments: None. IMPRESSION: No acute pulmonary disease X-ray Hand 2V, left* Reviewed date:07/05/2024 12:32:52 [...] Hypothenar like like foreign bodies. Otherwise, unremarkable. X-ray Lumbar Spine 3V (A/P, Lat, Spot)* [...] effusion. Soft tissues: Unremarkable Impression: Normal exam X-ray Foot 3V, bilateral* Reviewed date:09/13/2024 04:51:01 [...] right. Urinalysis by dipstick W/O m icroscopy* [id number] Reviewed date:09/13/2024 03:01:46 PM Interpretation: Performing Lab: Notes/Report: Color yellow Clarity clear Blood - Negative - Bilirubin - Negative - Urobilinogen 0.2 Negative - Specific Marathon 1.015 Nitrite - Negative - Protein 15 Negative - pH 5.0 Ketones - Negative - Glucose - Negative - Leukocytes - Negative - Ascorbic Acid - X-ray Ribs 3V, right* Reviewed date:09/13/2024 03:51:32 [...] Spine, 3 View(s) COMPARISON: 08/02/2024. FINDINGS: Alignment: Xxbt-ff-wsqcsnwl convex right thoracolumbar scoliosis. Stable mild grade [...] Refx to Reti c (new) IN HOUSE *2116* Reviewed date:09/13/2024 03:51:32 PM Interpretation: Performing Lab: [...] from the CAT scan taken on 09/13/2024. NOW COVID-19* Reviewed date:10/21/2024 12:19:35 PM Interpretation: [...] performed on the ID NOW instrument from [employer]. The ID NOW COVID- duration of the [...] 12:19:35 PM Interpretation: Performing Lab: Notes/Report: jr Influenza Swab* 85470 x2 Padmini t code 6335 Reviewed date:10/21/2024 12:19:35 PM Interpretation: Performing Lab: Notes/Report: jr INFLUENZA A Negative Internal QC Passed Negative Negative Internal QC Passed INFLUENZA B Negative Internal QC Passed Negative Negative Internal QC Passed US Reflux Venous BLE* Reviewed date:10/20/2024 07:49:55 [...] the greater or lesser saphenous veins bilaterally CorDx Flu A/B & COVID-19* Reviewed date:12/23/2024 12:49:09 PM Interpretation: Performing Lab: Notes/Report: i-STAT Metabolic Panel *(301 4) w/ Ionized Calcium Reviewed date:12/23/2024 01:45:00 PM Interpretation: Performing Lab: Notes/Report: EKG* Reviewed date:12/31/2024 06:19:50 AM Interpretation: Performing [...] 0 RR_NumBeats 0 RR_NumNormalBeats 0 RR_SystolicBP 0 US Bilateral LE Arterial Dop pler/Duplex* Reviewed date:10/20/2024 [...] hypertrophy and facet arthropathy. There is associated jcsv-cp-qjzaflww left and mild right foraminal stenosis. There [...] similar to the previous MRI. Stenosis is zshajxau-di-ughtzd at L3-4 and L5-S1, only yprz-mh-kpbgfzqx at the other levels. Nerve root impingement [...] Influenza A/B in nasopharyngeal and Note: The [employer] Films Influenza A RT PCR assay is assesed using the Adviesmanager.nl SX Virus Nucleic Acid Kit oropharygeal swabs from individuals who are suspected of Influenza A by their healther care on the Jump or Fall SBiomonde, as well as RT-PCR run on the Ztory201 insturment from [employer] see the Value/Result column for your actual result. Diagnostics. The ViroKey Influenza A RT PCR has not been FDA cleared or approved; it has been Note: Preferable reference range is Negative, reference range does not indicate your result. Please authorized by the FDA under an EUA for use by authorized high complexity laboratories. This test provider. Virokey Respiratory Syncytial Virus (RSV)* Negative Negative\.br\(Ref er to value/result column\.br\for results) The [employer], as well as RT-PCR run on the Ztory201 insturment from [employer]. The Note: Preferable reference range is Negative, reference range does not indicate your result. Please qualitative detection of RNA from RSV in nasopharyngeal and oropharygeal swabs from individuals who are suspected of RSV by their healther care provider. ViroKey Influenza A/B RT PCR has not been FDA cleared or approved; it has been authorized by the Note: The ViroKePassKit RSV RT PCR assay is assesed using the Adviesmanager.nl SX Virus Nucleic Acid Kit on the [employer] under an EUA for use by authorized [...] B by their healther care Note: The Adviesmanager[employer]nl Influenza B RT PCR assay is assesed using the Adviesmanager.nl SX Virus Nucleic Acid Kit authorized by the FDA under an EUA for use by authorized high complexity laboratories. This test isintended for the qualitative detection of RNA from Influenza A/B in nasopharyngeal and on the Santosa SX101, as well as RT-PCR run on the Sentosa SA201 insturment from [facility] see the Value/Result column for your actual result. ViroKey SARS-CoV-2 RT PCR Negative Negati ve\.br\(Ref er to value/result column\.br\for results) swabs from individuals who are suspected of COVID-19 by their healther care provider. The ViroKey on the Santosa SX101, as well as RT-PCR run on the Sentosa SA201 insturment from [facility] diagnosis of COVIC-19 under Section 564(b)(1) of Act, 21 U.S.C SS 360bb-3(b)(1), unless the Diagnostics. The VirLeisureLinky SARS-CoV-2 RT PCR has not been FDA [...] SARS-CoV-2 in nasopharyngeal and oropharygeal Note: The VirECO Films SARS-CoV-2 RT PCR assay is assesed using the Adviesmanager.nl SX Virus Nucleic Acid Kit Note: Preferable [...] date:12/12/2024 09:11:34 AM Interpretation: Performing Lab: Notes/Report: [facility]: LE edema Date of Service: 12.06.2024 Date of Prior: 10.13.2020 BP: 118.64 GENDER: M AGE: 59 HT:5'7'' WT:193 HR: 80 BSA: 1.99m2 Annual Giving Officer:RENEE PROCEDURE DESCRIPTION: A complete 2D, M-Mode, Doppler [...] Compared to prior study: no prior study Reason For Referral Diagnosis 1 Back pain (M54.9) Referral Organization [facility] Referring Provider First Name BEBETO Referring Provider Last Name NELLY Referring Provider [facility] edicine Referred Provider Specialty UrgentCare [facility] [place] Referral Priority Routine Diagnosis 1 Left hand pain (M79. 642) Referral Organization [facility] Referring Provider First Name BEBETO Referring Provider Last Name NELLY Referring [facility] Referred Provider Specialty Orthopedics\ - Referral Priority Routine Diagnosis 1 Injury due to fall, initial encounter (W19.XXXA) Referral Organization [facility] Referring Provider First Name BEBETO Referring Provider Last Name NELLY Referring Provider [facility] edicine Referred Provider Specialty UrgentCare [facility] [place] Referral Priority Routine Diagnosis 1 Pain in right foot ( M79.671) Diagnosis 2 Pain in left foot (M 79.672) Referral Organization [facility] Referring Provider First Name BEBETO Referring Provider Last Name NELLY Referring Provider [facility] edicine Referred Organization [facility] Referred Provider GRACE HERRERA Referred Address [address], [place],[address], Referred Provider Specialty Podiatry Referral Priority Routine Diagnosis 1 Accidental fall, ini tial encounter (W19.XXXA) Referral Organization [facility] Referring Provider First Name BEBETO Referring Provider Last Name NELLY Referring Provider Speciality Internal edicine Referred Provider Specialty UrgentCare [facility] Referral Priority Routine Diagnosis 1 Scoliosis of thoraco lumbar spine, unspecified scoliosis type (M41.9) Referral Organization [facility] Referring Provider First Name BEBETO Referring Provider Last Name NELLY Referring Provider Speciality Internal edicine Referred Organization [facility] Referred Provider JANET SHIPMAN Referred Address [address] [place] [place], [place],[address], Referred Provider Specialty Orthopedic S urgery Referral Priority Routine Diagnosis 1 Chest pain, unspecif ied type (R07.9) Referral Organization [facility] Referring Provider First Name BEBETO Referring Provider Last Name NELLY Referring Provider [facility] Internal edicine Referred Organization [facility] Referred Provider MARY TRAORE Referred Address [address] [place], [place],[address], Referred Provider Specialty Cardiology Referral Priority Routine Reason CT CHEST W* Diagnosis 1 Elevated LDH (R74.02 ) Referring Provider First Name Maykel Referring Provider Last Name Ilana Referring Provider Speciality Hematology /Oncology Referred Organization [facility] Referred Provider LUÍS MELÉNDEZ Referred Address [address] [place], [place],[address],[place] Referred Provider Specialty Diagnostic R adiology Procedure 1 CT THORAX W/DYE (712 60) General Notes [facility] 10/02 11:22:49 AM >APPROVED PER NOTES IN APPT 09/19/2024 Referral Priority Routine Reason CT ABD & PELV W* Diagnosis 1 Elevated LDH (R74.02 ) Referring Provider First Name Maykel Referring Provider Last Name Ilana Referring Provider Speciality Hematology /Oncology Referred Organization [facility] Referred Provider LUÍS MELÉNDEZ Referred Address [address] [place], [place],[address], Referred Provider Specialty Diagnostic R adiology General Notes [facility] 10/02 11:35:38 AM >APPROVED PER NOTES ON APPT 09/19/24 Referral Priority Routine Reason AD REFLUX Diagnosis 1 Lower extremity mario a (R60.0) Referral Organization [facility] Referring Provider First Name MARY Referring Provider Last Name LEÓN Referring Provider Speciality Cardiology Referred Organization [facility] Referred Provider MARY TRAORE Referred Address [address],[place], [place],[address], Referred Provider Specialty Cardiology Procedure 1 LOWER EXTREMITY STUD Y (96339) Procedure 2 EXTREMITY STUDY (465 89) General Notes Kinza Chicas 11/2024 03:32:44 PM >IVA,CALLREF#JOSE S 10/08/2024 3:20PM (JOSE S) Referral Priority Routine Diagnosis 1 Lumbar spondylosis ( M47.816) Referral Organization [facility] Referring Provider First Name BEBETO Referring Provider Last Name NELLY Referring Provider Speciality Internal M edicine Referred Provider Specialty Pain Managem ent\-MD Susana Referral Priority Routine Reason MRI L SPINE W/O Diagnosis 1 Lumbar radiculopathy (M54.16) Referral Organization [facility] Referring Provider First Name RODOLFO Referring Provider Last Name SUSANA Referring Provider Speciality Pain Medic ine Referred Organization [facility] Referred Provider LUÍS MELÉNDEZ Referred Address [address],[place], [place],[address], Referred Provider Specialty Diagnostic R adiology Procedure 1 MRI LUMBAR SPINE W/O DYE (17900) Referral Priority Routine Reason MRI T SPINE W/O Diagnosis 1 Thoracic radiculopat hy (M54.14) Referral Organization [facility] Referring Provider First Name RODOLFO Referring Provider Last Name SUSANA Referring Provider Speciality Pain Medic ine Referred Organization [facility] Referred Provider LUÍS MELÉNDEZ Referred Address [address] [place], [place],[address],[place] Referred Provider Specialty Diagnostic R adiology Procedure 1 MRI THORACIC SPINE W /O DYE (95517) Referral Priority Routine Diagnosis 1 Lower extremity mario a (R60.0) Referral Organization [facility] Referring Provider First Name MARY Referring Provider Last Name LEÓN Referring Provider Speciality Cardiology Referred Provider Specialty Cardiovascul ar \\- Jarek Heaton MD Referral Priority Routine Reason ECHO Diagnosis 1 Lower extremity mario a (R60.0) Referral Organization [facility] Referring Provider First Name MARY Referring Provider Last Name LEÓN Referring Provider Speciality Cardiology Referred Organization [facility] Referred Provider MARY TRAORE Referred Address [address] [place] [place], [place],[address], Referred Provider Specialty Cardiology Procedure 1 TTE W/DOPPLER, COMPL ETE (21740) General Notes Leonidas Potter 2024 10:23:56 AM >IVA,REF#[id number] Shen Culver Referral Priority Routine Diagnosis 1 Lower extremity mario a (R60.0) Referral Organization [facility] Referring Provider First Name MARY Referring Provider Last Name LEÓN Referring Provider Speciality Cardiology Referred Provider Specialty Cardiovascul ar Disease Referral Priority Routine Diagnosis 1 Lumbar radiculopathy (M54.16) Referral Organization [facility] Referring Provider First Name BEBETO Referring Provider Last Name NELLY Referring Provider Speciality Internal M edicine Referred Organization [facility] Referred Provider FABIEN JOHNSON Referred Address [address] [place], [place],[address], Referred Provider Specialty Orthopedic S urgery Referral Priority Routine Medications Medication SIG (Take, Route, Frequency, Duration) Notes Start Date End Date Status Trelegy Ellipta 100-62.5-25 MCG/ACT Aerosol Powder Breath Activated 1 puff Inhalation Once a day; Duration: 30 days 07/26/2024 Active Azelastine HCl 137 MCG/SPRAY Solution 2 puffs (1 spray in each nostril) Nasally Twice a day; Duration: 30 days 11/26/2024 Active Sutab 1337-626-309 MG Tablet 12 tablets the first dose the evening before and second dose the morning of colonoscopy Orally Twice a day; Duration: 1 days 10/25/2024 Active Azelastine HCl 137 MCG/SPRAY Solution 1 puff in each nostril Nasally Twice a day; Duration: 30 days Active tiZANidine HCl 4 MG Tablet TAKE 1 TABLET BY MOUTH THREE TIMES A DAY; Duration: 30 Active Gabapentin 400 MG Capsule 1 capsule Oral ly Twice a day; Duration: 90 days Active oxyCODONE HCl 10 MG Tablet 1 tablet as needed Orally 3 times a day; Duration: 30 days max daily dose: 3 tablets 05/27/2025 06/25/2025 Active oxyCODONE HCl 5 MG Tablet 1 tablet as ne eded Orally every 6 hrs Active Albuterol Sulfate HFA 108 (90 Base) MCG/ACT Aerosol Solution INHALE 1 PUFF INTO THE LUNGS EVERY 4 HOURS PRN; Duration: 30 days Active Pataday 0.1 % Solution 1 drop into affec brittany eye Ophthalmic Twice a day; Duration: 10 days 11/26/2024 Active Ambien 10 MG Tablet 1 tablet at bedtime as needed Orally Once a day; Duration: 30 days 05/27/2025 06/26/2025 Active Spirometer - Kit as directed; Duratio n: 30 days 09/13/2024 Active GaviLyte-C 240 GM Solution Reconstituted milliliter Orally prescribe; Duration: 1 days 10/25/2024 Active Vitamin D (Ergocalciferol) 1.25 MG (15743 UT) Capsule TAKE 1 CAPSULE BY MOUTH ONE TIME PER WEEK FOR 90 DAYS; Duration: 90 Active Lisinopril 5 MG Tablet 1 tablet Orally O nce a day; Duration: 90 days 11/11/2024 Active Montelukast Sodium 10 MG Tablet TAKE 1 TABLET BY MOUTH EVERY DAY; Duration: 90 Active Naproxen 500 MG Tablet TAKE 1 TABLET BY MOUTH EVERY 12 HOURS; Duration: 30 Active Immunizations Vaccine Route Administration Date Status Comme nts Influenza (whole), CPT 72421 Inactive Unknown 05/27/2015 Pending ([facility]) Fluzone Quadrivalent (3 years+), [...] Status W/U Status Risk Notes Problem Overweight (121614830) Overweight (E66.3) Active confirmed Problem Metabolic disorder (32174775) Metabolic disorder, unspecified (E88.9) Active confirmed Problem Primary insomnia (1536421) Primary insomnia (F51.01) Active confirmed Treatment Plan: [...] refills as discussed. Problem Chronic pain syndrome (324887274) Chronic pain syndrome (G89.4) Active confirmed Problem Lymphedema (535673904) Lymphedema, not elsewhere classified (I89.0) Active confirmed Problem Thoracic radiculopathy (69827464) Intervertebral disc disorders with radiculopathy, thoracic region (M51.14) Active confirmed Problem Sciatica (93058164) Lumbago with sciatica, left side (M54.42) Active confirmed Problem Hesitancy of micturition (9548572) Hesitancy of micturition (R39.11) Active confirmed Problem Carpal tunnel syndrome of right wrist (995013649217349) Carpal tunnel syndrome of right wrist (G56.01) Active confirmed Problem Essential hypertension (40254195) Essential hypertension (I10) Active confirmed Problem Vitamin D deficiency (19738005) Vitamin D deficiency (E55.9) Active confirmed Problem Lumbar radiculopathy (724192789) Lumbar radiculopathy (M54.16) Active confirmed Problem Chest pain (70757785) Chest pain, unspecified type (R07.9) Active confirmed Problem Obese class I (finding) (867037544137590) Obesity (BMI 30.0-34.9) (E66.9) Active confirmed Problem Seasonal allergy (505196427) Seasonal allergies (J30.2) Active confirmed Problem Gastroesophageal reflux disease (872345975) Gastroesophageal reflux disease, esophagitis presence not specified (K21.9) Active confirmed Problem Allergic rhinitis (07847523) Allergic rhinitis (J30.9) Active confirmed Problem Fatty liver (492455968) Fatty liver (K76.0) Active confirmed Problem Low back pain (finding) (989124450) Low back pain without sciatica, unspecified back pain laterality, unspecified chronicity (M54.5) Active confirmed Problem Exacerbation of intermittent asthma (875203610) Allergic asthma, mild intermittent, with acute exacerbation (J45.21) Active confirmed Problem Essential hypertension (21159570) Accelerated hypertension (I10) Active confirmed Problem Degeneration of cervical intervertebral disc (55942850) Degenerative disc disease, cervical (M50.30) Active confirmed Problem Displacement of lumbar intervertebral disc without myelopathy (41750198) Bulging lumbar disc (M51.26) Active confirmed Problem Degeneration of lumbar intervertebral disc (26586812) Lumbar degenerative disc disease (M51.36) Active confirmed [...] DISCUSSION: The patient will be contacted by receptionist airline lounge to schedule follow-up appointments with Dr. Shipman. [...] to receive a referral Problem Atrophic gastritis (49824534) Antral gastritis (K29.50) Active confirmed Problem Dry eyes (177970359) Dry eyes (H04.123) Active confirmed Problem History of chest pain (63455721124305844 ) Hx of chest pain (Z87.898) Active confirmed Problem Occupational injury (508019348) Work related injury (Y99.0) Active confirmed Problem Thoracic radiculopathy (24004943) Thoracic radiculopathy (M54.14) Active confirmed Problem Duodenal ulcer (24751111) Duodenal ulcer (K26.9) Active confirmed Problem Displacement of cervical intervertebral disc without myelopathy (98539854) Bulging of cervical intervertebral disc (M50.20) Active confirmed Problem Sciatica (52352576) Acute low back pain with left-sided sciatica, unspecified back pain laterality (M54.42) Active confirmed Problem Disorder of lumbar disc (085868012) Lumbar disc disorder (M51.9) Active confirmed Problem Chondromalacia of left patella (295388600362954) 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) Active confirmed Problem Chondromalacia of right patella (65311507369959717 ) 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) Active confirmed Problem Patellofemoral disorder, unspecified laterality (M22.2X9) Active confirmed Problem Scoliosis (855486630) Scoliosis of thoracolumbar spine, unspecified scoliosis type (M41.9) Active confirmed Problem Bilateral carpal tunnel syndrome (25573306885045501 ) Bilateral carpal tunnel syndrome (G56.03) Active confirmed Problem Chronic idiopathic constipation (68172347) Chronic idiopathic constipation (K59.04) Active confirmed Problem Benign prostatic hypertrophy without outflow obstruction (904229177) Benign prostatic hyperplasia without lower urinary tract symptoms (N40.0) Active confirmed Problem Lower urinary tract symptoms due to benign prostatic hypertrophy (57759345916116) Benign prostatic hyperplasia with lower urinary tract symptoms (N40.1) Active confirmed Problem Carpal tunnel syndrome (03470730) Carpal tunnel syndrome on both sides (G56.03) Active confirmed Problem Lumbar spondylosis (430914476) Lumbar spondylosis (M47.816) Active confirmed Problem Essential hypertension (97139734) Essential (primary) hypertension (I10) Active confirmed Problem Exposure to communicable disease (008060216) Contact with and (suspected) exposure to other viral communicable diseases (Z20.828) Active confirmed Problem Degeneration of lumbar intervertebral disc (73372606) Other intervertebral disc degeneration, lumbar region (M51.36) Active confirmed Problem Lumbar radiculopathy (557766857) Radiculopathy, lumbar region (M54.16) Active confirmed Problem Balanitis (48257417) Balanitis (N48.1) Active confirmed Problem Thoracic radiculopathy (95988426) Radiculopathy, thoracic region (M54.14) Active confirmed Problem Lumbosacral spondylosis without myelopathy (disorder) (98410606) Spondylosis without myelopathy or radiculopathy, lumbosacral region (M47.817) Active confirmed Problem Infection of bilateral eyes (98285948478962515 ) Eye infection, bilateral (H44.003) Active confirmed Problem Arthritis of left acromioclavicular joint (4010291305007367) 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) Active confirmed Problem Herniation of nucleus pulposus of lumbar intervertebral disc co-occurrent with sciatica (206521040360710) Herniation of lumbar intervertebral disc with radiculopathy (M51.16) Active confirmed Problem Chronic pain (01512018) Chronic pain (G89.4) Active confirmed Problem Chronic pain (99008699) Chronic pain (G89.29) Active confirmed Problem Arthropathy of lumbar facet joint (412368542) Lumbar facet arthropathy (M47.816) Active confirmed Problem Cervical spondylosis (510580167) Cervical spondylosis (M47.812) Active confirmed Problem Lumbosacral spondylosis without myelopathy (70014569) Facet arthritis of lumbosacral region (M47.817) Active confirmed Problem Varicose veins of bilateral lower limbs (85080175552916212 ) Varicose veins of bilateral lower extremities w/ other complications (I83.893) Active confirmed Problem Post-acute COVID-19 (disorder) (3571203363) 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) Active confirmed Problem Non-pressure chronic ulcer of lower leg, limited to breakdown of skin, unspecified laterality (L97.901) Active confirmed Problem Patellofemoral syndrome (381594795) Patellofemoral syndrome, right (M22.2X1) Active confirmed Problem 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) Active confirmed Problem Opioid dependence (32489967) Long-term current use of methadone for opiate [...] N/A Encounters Encounter Location Date Provider Diagnosis [place] [address] [place] [address] 06/17/2024 BEBETO VILLEGAS Other chronic pain G89.29 ; Lumbar disc disorder M51.9 and Primary insomnia F51.01 [place] [address] [place] [address] 06/25/2024 BEBETO VILLEGAS Lumbar disc disorder M51.9 and Back pain M54.9 [place] [address] [place] [address] 07/01/2024 BEBETO VILLEGAS Lumbar disc disorder M51.9 and Back pain M54.[address] [place] [address] 07/02/2024 BEBETO VILLEGAS Left hand pain M79.642 and Chronic pain syndrome G89.[address] [place] [address] 07/05/2024 BEBETO VILLEGAS Encounter to discuss test results Z71.89 and Left hand pain M79.[address] [place] [address] 07/24/2024 BEBETO VILLEGAS [address] [place] [address] 07/26/2024 BEBETO VILLEGAS Primary insomnia F51.01 ; Lumbar disc disorder M51.9 ; Seasonal allergies J30.2 ; Acute cough R05.1 and Allergic asthma, mild intermittent, with acute exacerbation J45.21 [address] [place] [address] 07/29/2024 BEBETO VILLEGAS Cough R05.[address] [place] [address] 07/29/2024 BEBETO VILLEGAS [address] [place] [address] 08/02/2024 BEBETO VILLEGAS Encounter related to worker's compensation claim Z02.6 ; Acute left-sided low back pain without sciatica M54.50 ; Injury due to fall, initial encounter W19.XXXA and Left arm pain M79.[address] [place] [address] 08/02/2024 BEBETO VILLEGAS Rash of groin R21 an d Intertrigo L30.[address] [place] [address] 08/15/2024 HIRAM BUCK Lumbar radiculopathy M54.16 ; Encounter for annual general medical examination with abnormal findings in adult Z00.01 ; Primary insomnia F51.01 ; Allergic asthma, mild intermittent, with acute exacerbation J45.21 ; Colon cancer screening Z12.11 ; Advanced care planning/counseling discussion Z71.89 and Left ankle pain M25.[address] [place] [address] 08/26/2024 BEBETO VILLEGAS Lumbar disc disorder M51.[address] [place] [address] 08/29/2024 GRACE OSOFSKY Other enthesopathy o f right foot and ankle M77.51 ; Valgus deformity, not elsewhere classified, right ankle M21.071 ; Valgus deformity, not elsewhere classified, left ankle M21.072 ; Posterior tibial tendon dysfunction, right M76.821 and Pain in right foot M79.[address] [place] [address] 09/02/2024 BEBETO VILLEGAS Generalized body aches R52 and Lumbago with sciatica, left side M54.[address] [place] [address] 09/13/2024 BEBETO VILLEGAS Accidental fall, initial encounter W19.XXXA ; Encounter related to worker's compensation claim Z02.6 ; Acute pain due to trauma G89.11 and Rib pain on right side R07.[address] [place] [address] 09/13/2024 BEBETO VILLEGAS Lumbar radiculopathy M54.16 and long-term (current) use of opiate analgesic Z79.[address] [place] [address] 09/16/2024 BEBETO VILLEGAS Other chronic pain G89.29 and Scoliosis of thoracolumbar spine, unspecified scoliosis type M41.[address] [place] [address] 09/16/2024 BEBETO VILLEGAS Closed fracture of multiple ribs of right side, initial encounter S22.41XA ; Encounter related to worker''s compensation claim Z02.6 and Encounter for issuance of medical certificate Z02.[address] [place] 09/19/2024 BEBETO VILLEGAS Encounter related to worker's compensation claim Z02.6 and Rib pain R07.[address] [place] 09/26/2024 BEBETO VILLEGAS Encounter related to worker's compensation claim Z02.6 ; Closed fracture of multiple ribs of right side, initial encounter S22.41XA and Lumbar disc disorder M51.[address] [place] 09/26/2024 BEBETO VILLEGAS Chest pain, unspecified type R07.9 and Nonintractable headache, unspecified chronicity pattern, unspecified headache type R51.[address] [place] 10/11/2024 BEBETO VILLEGAS Primary insomnia F51.01 ; Lumbar disc disorder M51.9 ; Lumbar radiculopathy M54.16 ; Acute cough R05.1 ; 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 and Allergic asthma, mild intermittent, with acute exacerbation J45.[address] [place] 10/11/2024 BEBETO VILLEGAS Closed fracture of multiple ribs of right side, initial encounter S22.41XA ; Encounter related to worker''s compensation claim Z02.6 and Encounter for issuance of medical certificate Z02.[address] [place] 10/14/2024 BEBETO VILLEGAS URI (upper respiratory infection) J06.9 ; Sinus pressure J34.89 ; Dry eyes H04.123 ; Cough R05.9 ; Headache G44.319 and Low grade fever R50.[address] [place] 10/24/2024 BEBETO VILLEGAS Lumbar spondylosis M47.[address] [place] [place] [address] 10/28/2024 BEBETO VILLEGAS Rib pain on right side R07.81 ; Closed fracture of multiple ribs of right side, initial encounter S22.41XA and Encounter related to worker's compensation claim Z02.[address] [address] 11/05/2024 BEBETO VILLEGAS Primary insomnia F51.01 and Other chronic pain G89.[address] [place] [address] 11/05/2024 BEBETO VILLEGAS Rib pain on right side R07.81 ; Closed fracture of multiple ribs of right side, initial encounter S22.41XA ; Encounter related to worker's compensation claim Z02.6 ; Herniation of lumbar intervertebral disc with radiculopathy M51.16 and Intervertebral disc disorders with radiculopathy, thoracic region M51.[address] [place] [place] [address] 11/08/2024 BEBETO VILLEGAS Encounter related to worker''s compensation claim Z02.6 ; Chronic pain G89.29 ; Encounter for issuance of medical certificate Z02.79 ; Rib pain on right side R07.81 ; Closed fracture of multiple ribs of right side, initial encounter S22.41XA ; Herniation of lumbar intervertebral disc with radiculopathy M51.16 and Intervertebral disc disorders with radiculopathy, thoracic region M51.[address] [place] [address] 11/12/2024 BEBETO VILLEGAS [address] [place] [place] [address] 11/12/2024 BEBETO VILLEGAS Primary insomnia F51.01 ; Chondromalacia, right knee M94.261 ; Other chronic pain G89.29 and Lumbar radiculopathy M54.[address] [place] [address] 11/15/2024 BEBETO VILLEGAS Chronic pain syndrom e G89.4 ; Lumbar radiculopathy M54.16 and Encounter related to worker's compensation claim Z02.[address] [place] [place] [address] 11/26/2024 BEBETO VILLEGAS Acute cough R05.1 ; Acute URI J06.9 and Allergic rhinitis J30.[address] [place] [address] 11/26/2024 BEBETO VILLEGAS Rib pain on right side R07.81 ; Closed fracture of multiple ribs of right side, initial encounter S22.41XA ; Encounter related to worker's compensation claim Z02.6 ; Herniation of lumbar intervertebral disc with radiculopathy M51.16 and Intervertebral disc disorders with radiculopathy, thoracic region M51.[address] [place] [address] 12/05/2024 BEBETO VILLEGAS Primary insomnia F51.01 ; Lumbar radiculopathy M54.16 and Medication management Z79.[address] [place] [address] 12/26/2024 BEBETO VILLEGAS Encounter to discuss test results Z71.89 ; Lumbar radiculopathy M54.16 ; Chronic cough R05.3 ; Essential hypertension I10 ; Lower extremity edema R60.0 and Obesity (BMI 30.0-34.9) E66.[address] [place] [address] 12/26/2024 BEBETO VILLEGAS Rib pain on right side R07.81 ; Closed fracture of multiple ribs of right side, initial encounter S22.41XA ; Encounter related to worker's compensation claim Z02.6 ; Herniation of lumbar intervertebral disc with radiculopathy M51.16 ; Intervertebral disc disorders with radiculopathy, thoracic region M51.14 and Back pain M54.[address] [place] [address] 01/02/2025 BEBETO VILLEGAS Medication managemen t Z79.899 ; Chest congestion R09.89 ; Cough R05.9 ; Sinus pressure J34.89 ; Lumbar radiculopathy M54.16 ; Primary insomnia F51.01 ; Allergic asthma, mild intermittent, with acute exacerbation J45.21 and long-term current use of opiate analgesic Z79.[address] [place] [address] 01/02/2025 BEBETO VILLEGAS Rib pain on right side R07.81 ; Closed fracture of multiple ribs of right side, initial encounter S22.41XA ; Encounter related to worker's compensation claim Z02.6 ; Herniation of lumbar intervertebral disc with radiculopathy M51.16 ; Intervertebral disc disorders with radiculopathy, thoracic region M51.14 and Back pain M54.[address] [place] [place] [address] 02/10/2025 BEBETO VILLEGAS Lumbar radiculopathy M54.16 ; Allergic asthma, mild intermittent, with acute exacerbation J45.21 ; Seasonal allergies J30.2 ; Primary insomnia F51.01 ; Other chronic pain G89.29 and long-term current use of opiate analgesic Z79.[address] [place] [place] [address] 03/07/2025 BEBETO VILLEGAS Lumbar radiculopathy M54.16 ; Primary insomnia F51.01 ; Seasonal allergies J30.2 ; Vitamin D deficiency E55.9 and long-term current use of opiate analgesic Z79.[address] [place] [address] 03/13/2025 BEBETO VILLEGAS [address] [place] [address] 05/27/2025 BEBETO VILLEGAS Lumbar radiculopathy M54.16 ; Abdominal pain R10.84 ; 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 and Medication management Z79.[address] [place] [address] 06/02/2025 BEBETO VILLEGAS Essential hypertension I10 ; Abdominal pain R10.84 and Medication management Z79.[address] [place] [address] 06/12/2025 BEBETO VILLEGAS Lumbar radiculopathy M54.16 ; Shoulder pain M25.512 and Encounter related to worker's compensation claim Z02.6 2 [facility] [address] [place] [id number] 06/20/2024 ALIE SCHULTE Screen for colon cancer Z12.[address] [place] [address] 06/17/2024 IRENE GUALLPA [facility] [address] [place] [address] 06/25/2024 GRACE HERRERA [facility] [address] [place] [address] 06/25/2024 BEBETO VILLEGAS [facility] [address] [place] [address] 06/27/2024 BEBETO VILLEGAS [facility] [address] [place] [address] 07/02/2024 BEBETO VILLEGAS Left hand pain M79.[address] [address] 07/02/2024 BEBETO VILLEGAS [facility] [address] [place] [address] 07/02/2024 BEBETO VILLEGAS [facility] [address] [place] [address] 07/05/2024 BEBETO VILLEGAS [facility] [address] [place] [address] 07/15/2024 BEBETO VILLEGAS Lumbar disc disorder M51.9 [facility] [address] [place] [address] 07/22/2024 DANNY HEREDIA [facility] [address] [place] [address] 07/26/2024 BEBETO VILLEGAS [address] [place] [address] 08/02/2024 BEBETO VILLEGAS [address] [place] [address] 08/02/2024 BEBETO VILLEGAS Encounter related to worker's compensation claim Z02.6 ; Injury due to fall, initial encounter W19.XXXA ; Left arm pain M79.602 and Acute left-sided low back pain without sciatica M54.50 [place] [address] [place] [address] 08/02/2024 BEBETO VILLEGAS [place] [address] [place] [address] 08/02/2024 IRENE GUALLPA Injury of left elbow , initial encounter S59.902A and Acute bilateral low back pain without sciatica M54.50 [place] [address] [place] [address] 08/13/2024 CALERosaline COTTRELLOS Lumbar radiculopathy M54.16 and Other chronic pain G89.29 [place] [address] [place] [address] 08/19/2024 CALE DEMETROS Fever, unspecified fever cause R50.9 and COVID-19 U07.1 [facility] [address] [place] [address] 08/19/2024 CALE GUERRERO 419 [facility] [address] [place] [address] 08/27/2024 BEBETO VILLEGAS 419 [facility] [address] [place] [facility] [place] [address] 08/29/2024 GRACE HERRERA [facility] [address] [place] [address] 08/30/2024 BEBETO VILLEGAS [facility] [address] [place] [address] 09/02/2024 BEBETO VILLEGAS [address] [place] [address] 09/03/2024 BEBETO VILLEGAS [facility] [address] [place] [address] 09/04/2024 RODOLFO MEZA [facility] [address] [place] [address] 09/16/2024 RODOLFO MEZA Lumbar radiculopathy M54.16 ; Facet arthritis of lumbosacral region M47.817 ; Thoracic radiculopathy M54.14 and Lumbar spondylosis M47.816 [place] [address] [place] [address] 09/13/2024 IRENE GUALLPA Injury of abdomen, initial encounter S39.91XA and Rib pain on right side R07.[address] [address] 09/13/2024 IRENE GUALLPA [facility] [address] [place] [address] 09/13/2024 CEASAR LOCO Closed fracture of multiple ribs of right side, initial encounter S22.41XA [address] [place] [address] [address] [place] [address] 09/18/2024 RODOLFO DAMACHARLA Lumbar radiculopathy M54.16 ; Facet arthritis of lumbosacral region M47.817 ; Thoracic radiculopathy M54.14 and Lumbar spondylosis M47.[address] [place] [address] 09/19/2024 JANET SHIPMAN Encounter related to worker's compensation claim Z02.6 ; Closed fracture of multiple ribs of right side, initial encounter S22.41XA ; Lumbar disc disorder M51.9 and Right hip pain M25.[address] [place] [address] 09/18/2024 IRENE GUALLPA Closed fracture of multiple ribs of right side with routine healing, subsequent encounter S22.41XD [address] [place] [address] 09/19/2024 BEBETO VILLEGAS Chronic pain G89.4 [address] [facility] [address] [place] [address] 09/19/2024 JANET SHIPMAN [facility] [address] [place] [address] 09/19/2024 BEBETO VILLEGAS [facility] [address] [place] [address] 09/24/2024 BEBETO VILLEGAS Primary insomnia F51.01 [facility] [address] [place] [address] 10/01/2024 MARYLucy TRAORE Essential hypertension I10 ; Obesity (BMI 30.0-34.9) E66.9 ; Pain in right leg M79.604 ; Pain in left leg M79.605 and Lower extremity edema R60.[address] [place] [address] 09/30/2024 BEBETO VILLEGAS Back pain M54.[address] [place] [id number] 09/30/2024 ALIE SCHULTE Screen for colon cancer Z12.11 [facility] [address] [place] [address] 10/18/2024 MARY LEÓN Lower extremity mario a R60.0 [facility] [address] [place] 10/18/2024 MARY LEÓN Lower extremity mario a R60.[address] [place] [address] 10/02/2024 PPROVIDER OUTSIDE Generalized abdomina l pain R10.[address] [address] 10/02/2024 PPROVIDER OUTSIDE [address] [place] [address] 10/02/2024 BEBETO VILLEGAS [address] [place] [address] 10/02/2024 PPROVIDER OUTSIDE [address] [address] 10/16/2024 BEBETO VILLEGAS URI (upper respiratory infection) J06.9 [facility] [address] [place] [address] 10/21/2024 RODOLFO MEZA [facility] [address] [place] [address] 10/24/2024 BEBETO VILLEGAS [facility] [address] [place] [address] 10/25/2024 RODOLFO MEZA Lumbar radiculopathy M54.16 ; Thoracic radiculopathy M54.14 ; Lumbar spondylosis M47.816 and Work related injury Y99.0 [facility] [address] [place] [address] 10/29/2024 RODOLFO MEZA Thoracic radiculopathy M54.14 [facility] [address] [place] [address] 10/29/2024 RODOLFO MEZA Lumbar radiculopathy M54.16 and Lumbar spondylosis M47.816 [facility] [address] [place] [address] 10/25/2024 ALIE SCHULTE [address] [address] 10/25/2024 BEBETO URBINALATI [facility] [address] [place] [address] 10/25/2024 RODOLFO MEZA [facility] [address] [place] [address] 11/02/2024 RODOLFO MEZA Lumbar radiculopathy M54.16 ; Lumbar spondylosis M47.816 ; Thoracic radiculopathy M54.14 and Work related injury Y99.0 [facility] [address] [place] [address] 11/02/2024 RODOLFO MEZA [facility] [address] [place] [address] 11/11/2024 MARY TRAORE Essential hypertension I10 ; Obesity (BMI 30.0-34.9) E66.9 ; Pain in right leg M79.604 ; Pain in left leg M79.605 and Lower extremity edema R60.0 [facility] [address] [place] [address] 11/06/2024 RODOLFO MEZA [address] [address] 11/07/2024 BEBETO URBINALATI [facility] [address] [place] [address] 12/06/2024 MARY TRAORE Lower extremity mario a R60.[address] [address] 11/26/2024 BEBETO NELLY [facility] [address] [place] [address] 11/26/2024 [facility] [address] [place] [address] 11/26/[address] [facility] [address] [place] [address] 11/28/[address] [facility] [address] [place] [address] 11/29/2024 RODOLFO MEZA Lumbar radiculopathy M54.16 ; Lumbar spondylosis M47.816 ; Thoracic radiculopathy M54.14 and Work related injury Y99.0 [facility] [address] [place] [address] 11/29/2024 RODOLFO MEZA [facility] [address] [place] [address] 11/29/2024 RODOLFO MEZA [facility] [address] [place] [address] 12/02/2024 ERIN CONLEY Upper respiratory tract infection, unspecified type J06.[address] [address] 12/09/2024 [facility] [address] [place] [address] 12/18/2024 RODOLFO MEZA [address] [address] 12/18/2024 IRENE GUALLPA [facility] [address] [place] [address] 12/23/2024 RODOLFO MEZA Lumbar radiculopathy M54.16 ; Lumbar spondylosis M47.816 ; Thoracic radiculopathy M54.14 and Work related injury Y99.0 [facility] [address] [place] [address] 12/23/2024 ERIN CONLEY Upper respiratory tract infection, unspecified type J06.9 [facility] [address] [place] [address] 12/24/2024 MARY LEÓN Essential hypertension I10 ; Lower extremity edema R60.0 ; Obesity (BMI 30.0-34.9) E66.9 ; Pain in right leg M79.604 and Pain in left leg M79.605 [facility] [address] [place] [address] 12/27/2024 BEBETO VILLEGAS [address] [place] [address] 01/29/2025 BEBETO VILLEGAS [address] [address] 02/11/2025 BEBETO VILLEGAS Back pain M54.9 [facility] [address] [place] [address] 02/25/2025 BEBETO VILLGEAS Primary insomnia F51.01 [facility] [address] [place] [id number] 02/25/2025 ERIN CONLEY Other low back pain M54.59 [facility] [address] [place] [address] 03/10/2025 BEBETO VILLEGAS [facility] [address] [place] [address] 04/09/2025 BEBETO VILLEGAS [facility] [address] [place] [address] 05/27/2025 BEBETO VILLEGAS Lumbar radiculopathy M54.16 [facility] [address] [place] [address] 05/27/2025 BEBETO VILLEGAS Primary insomnia F51.01 and Lumbar radiculopathy M54.16 [facility] [address] [place] [address] 05/29/2025 BEBETO VILLEGAS [facility] [address] [place] [address] 06/02/2025 BEBETO VILLEGAS [facility] [address] [place] [address] 06/12/2025 BEBETO VILLEGAS [facility] [address] [place] [address] 06/13/2025 BEBETO VILLEGAS Assessments Encounter Date Diagnosis (ICD [...] problems.Non-pha rmacological Strategies: Dietary changes to include T15-sxdb foods (e.g., meat, poultry, fish, eggs, dairy). [...] up with his primary care physician and nursing program director, Dr. Preciado, to discuss long-term pain management [...] advised to continue follow-up with Dr. Meza. [facility] paperwork was facilitated for a planned recovery [...] fractures. The patient requests an extension for [facility] paperwork related to this injury. He has [...] additional injuries or complications. Treatment Plan The [facility] paperwork was completed and signed to accommodate [...] M54.16) 05/27/2025 Primary insomnia (ICD-10 - F51.01) 06/12/2025 Lumbar radiculopathy (ICD-10 - M54.16) Referral to orthopedic surgery for further evaluation and management was provided. Medical Decision Making (MDM) and Treatment Plan: The patient's lumbar radiculopathy and right shoulder pain were assessed. Referral to orthopedic surgery (Dr. Fabien Johnson) was provided for further evaluation and management of both conditions. Orders were placed for Toradol intramuscular injection (60 mg, pending) and vitamin B12 injection (up to 1000 mcg, pending) for symptomatic relief. The patient was counseled on the potential side effects of Toradol, including gastrointestin al upset, renal risks, and bleeding, especially in [...] were assessed. Referral to orthopedic surgery (Dr. Fabien Johnson) was provided for further evaluation and management of both conditions. Orders were placed for Toradol intramuscular injection (60 mg, pending) and vitamin B12 injection (up to 1000 mcg, pending) for symptomatic relief. The patient was counseled on the potential side effects of Toradol, including gastrointestin al upset, renal risks, and bleeding, especially in [...] 5. Follow-up appointment scheduled in four weeks. 05/27/2025 Lumbar radiculopathy (ICD-10 - M54.16) 06/02/2025 [...] good efficacy and no adverse effects. The LEGAL WORD PROCESSOR I-STOP was reviewed to ensure appropriate use [...] dependence, sedation, constipation, and respiratory depression. The LEGAL WORD PROCESSOR I-STOP was reviewed to ensure appropriate use [...] times daily for chronic pain management. The LEGAL WORD PROCESSOR I-STOP was reviewed for appropriate use. 2. [...] at T12-L1 level. MRI is also showing yaqqqhhe-wl-ttyl re foraminal stenosis at L3-L4, L4-L5 and L5-S1 levels and udtd-tb-fedkpndd at other levels. There could be a [...] effects were discussed with the patient. - LEGAL WORD PROCESSOR-I stop was reviewed with the patient today. [...] -The refills were provided as requested. - LEGAL WORD PROCESSOR-I stop was reviewed with the patient today. Adv on general care back. Use heating pad, Bengay cream to back as needed. Avoid any identifying/iden tified triggers. Sleep on firm mattress. 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 Adv on proper lifting technique. This [...] effects were discussed with the patient. - LEGAL WORD PROCESSOR-I stop was reviewed with the patient today. [...] -The refills were provided as requested. - LEGAL WORD PROCESSOR-I stop was reviewed with the patient today. [...] -The refills were provided as requested. - LEGAL WORD PROCESSOR-I stop was reviewed with the patient today. [...] good symptom control. The Prescription Monitoring Program (LEGAL WORD PROCESSOR) was reviewed to ensure safe prescribing of [...] mg IM injection for back pain. Reviewed LEGAL WORD PROCESSOR for controlled substance safety. Counseled patient on [...] imaging for confirmation and assessment of healing.Potentia shell Side Effects: Emphasized monitoring for potential [...] fractures. The patient requests an extension for [facility] paperwork related to this injury. He has [...] additional injuries or complications. Treatment Plan The [facility] paperwork was completed and signed to accommodate [...] at T12-L1 level. MRI is also showing ohfygdhs-zh-yxjw re foraminal stenosis at L3-L4, L4-L5 and L5-S1 levels and buwv-sw-gwmnnmvv at other levels. There could be a [...] Ambien and tizanidine. The prescription monitoring program (LEGAL WORD PROCESSOR I-STOP) was reviewed to ensure compliance with [...] a new disc herniation at T12-L1 with dpegtygt-cs-tl dillon stenosis at L3-4 and L5-S1 and oszc-ph-awyiig te stenosis at other levels. There is [...] need for surgical intervention, referral to a admissions specialist was considered a future option. Managing [...] has been deemed 100% disabled by the roof cement and paint maker helper, Dr. Meza; however, he has not received [...] was advised to follow up with his roof cement and paint maker helper, Dr. Meza. -The Toradol 30 intramuscular injection [...] his employer and follow up with his roof cement and paint maker helper. He was instructed to monitor his pain levels and report any changes or worsening of symptoms. 11/08/2024 Chronic pain (ICD-10 - G89.29) -He was advised to follow up with his roof cement and paint maker helper, Dr. Meza. -The Toradol 30 intramuscular injection will be administered to the patient today. The patient was advised visiting the for injection administration. This is a 59-year-old male patient presenting today via telemed for his workers compensation follow up visit. The patient presents with severe pain following a work-related injury. He has been deemed 100% disabled by the roof cement and paint maker helper, Dr. Meza; however, he has not received [...] was advised to follow up with his roof cement and paint maker helper, Dr. Meza. -The Toradol 30 intramuscular injection [...] his employer and follow up with his roof cement and paint maker helper. He was instructed to monitor his pain [...] care with increased fluids and may use wmaa-kus-cqdkxqc medications to control cough. Patient advised to [...] disability status for worker's compensation purposes, with ecaiou-on-zgng timing to be determined based on future [...] approach. Emphasizing communication with his worker's compensation telemarketing representative s and healthcare providers regarding changes [...] at T12-L1 level. MRI is also showing xnyvrbxy-fx-epdm re foraminal stenosis at L3-L4, L4-L5 and L5-S1 levels and fvqs-ov-eaarkjpn at other levels. There could be a [...] cough and generally not feeling wellPatient's and uzgrdw-pa-krk are sick with similar symptomsSuspect viral infectionRule [...] the risks of combining Ambien with other HOUSEHOLD PERSONAL ASSISTANT depressants. Non-pharmacologi perry strategies, such as cognitive [...] advised to continue follow-up with Dr. Meza. [facility] paperwork was facilitated for a planned recovery [...] in stable condition. all diagnoses new to me 09/13/2024 Rib pain on right side (ICD-10 - R07.81) X-ray of the right ribs done today shows no obvious evidence of acute fracture. Patient is given Toradol 60 mg IM today in the office for his acute pain. Advised to modify activities as tolerable and use fgnr-lzs-mujjaps remedies as helpful. He is given a work note today and advised to follow-up with PCP. CT results to follow. all diagnoses new to me 09/13/2024 Closed fracture of multiple ribs of [...] given. Tramadol prior authorization to be pursued.Potentia shell Side Effects: Toradol: Pain at the injection [...] up with his primary care physician and nursing program director, Dr. Preciado, to discuss long-term pain management [...] 5 mg for chronic pain management. The LEGAL WORD PROCESSOR I-STOP was reviewed with the patient during the visit. The patient was advised to follow up in one month or sooner if needed. - Refilled oxycodone. - Monitor for side effects. - Follow up in one month. 09/13/2024 long-term (current) use of opiate analgesic (ICD-10 - [...] 5 mg for chronic pain management. The LEGAL WORD PROCESSOR I-STOP was reviewed with the patient during [...] ies for 8 hours postinjection. new to vt 08/19/2024 COVID-19 (ICD-10 - U07.1) Patient tested [...] extra rest. Advised patient to take an ogsz-jbc-jopmren medicine, such as acetaminophen (Tylenol) to reduce fever. Recommended teut-hma-wttvakg medications to help with the congestion, cough and discomfort. The risks, benefits, and alternatives for all the treatments provided today were reviewed in detail with the patient. Patient verbalized understanding and consented to treatment plan. Discharged in stable condition. new to vt 08/26/2024 Lumbar disc disorder (ICD-10 - M51.9) [...] fractures or dislocations. Patient advised to use vjfg-ltm-fojkmmx remedies as otherwise helpful and continue follow-up with pain management and PCP as scheduled. Modify activities as tolerable. If anything worsens or changes, patient advised to call or return to office or ER. Patient verbalizes understanding to plan and all questions were answered. Discharged today in stable condition. All diagnoses new to vt 08/02/2024 Acute bilateral low back pain without sciatica (ICD-10 - M54.50) All diagnoses new to vt 08/13/2024 Lumbar radiculopathy (ICD-10 - M54.16) Toradol [...] today in stable condition. not new to vt 08/13/2024 Other chronic pain (ICD-10 - G89.29) not new to vt 08/15/2024 Lumbar radiculopathy (ICD-10 - M54.16) (History [...] in stable condition. all diagnoses new to vt 09/19/2024 Encounter related to worker's compensation claim [...] refill for Tramadol was provided, and the LEGAL WORD PROCESSOR I-STOP was reviewed with the patient during [...] refill for Tramadol was provided, and the LEGAL WORD PROCESSOR I-STOP was reviewed with the patient during [...] (ICD-10 - R51.9) Expedite Dr. Traore appointment.Radha fofana symptoms closely.Follow up if worsens. MEDICAL DECISION [...] was referred to Urgent Care at the [facility] for further evaluation and to complete a [...] was referred to Urgent Care at the [facility] for further evaluation and to complete a [...] Tramadol, Montelukast, and Zolpidem were processed. The LEGAL WORD PROCESSOR I-STOP was reviewed with the patient during the visit. The patient was advised to follow up in one month or sooner if any need arises. - Prescribed Tessalon Perles for cough. - Prescribed Trelegy Ellipta inhaler. - Processed refills for Tramadol, Montelukast, and Zolpidem. - Reviewed LEGAL WORD PROCESSOR I-STOP. - Follow up in one month. 06/17/2024 Other chronic pain (ICD-10 - G89.29) [...] dizziness today. MEDICAL DECISION MAKING: The medical decision-satish kay process for this patient involved evaluating the [...] Tramadol, Montelukast, and Zolpidem were processed. The LEGAL WORD PROCESSOR I-STOP was reviewed with the patient during the visit. The patient was advised to follow up in one month or sooner if any need arises. - Prescribed Tessalon Perles for cough. - Prescribed Trelegy Ellipta inhaler. - Processed refills for Tramadol, Montelukast, and Zolpidem. - Reviewed LEGAL WORD PROCESSOR I-STOP. - Follow up in one month. [...] Tramadol, Montelukast, and Zolpidem were processed. The LEGAL WORD PROCESSOR I-STOP was reviewed with the patient during the visit. The patient was advised to follow up in one month or sooner if any need arises. - Prescribed Tessalon Perles for cough. - Prescribed Trelegy Ellipta inhaler. - Processed refills for Tramadol, Montelukast, and Zolpidem. - Reviewed LEGAL WORD PROCESSOR I-STOP. - Follow up in one month. [...] was referred to Urgent Care at the [facility] for further evaluation and to complete a [...] (ICD-10 - M51.9) Refilled Tramadol.Discuss ed side effects.Ld ce of adherence.Risks of non-adherence. MEDICAL DECISION MAKING AND TREATMENT PLAN: The patient's medical history was reviewed, and medications were reconciled. A refill for Tramadol was provided, and the LEGAL WORD PROCESSOR I-STOP was reviewed with the patient during [...] issuance of medical certificate (ICD-10 - Z02.79) [place] paperwork was facilitated for a planned [...] the risks of combining Oxycodone with other HOUSEHOLD PERSONAL ASSISTANT depressants. Non-pharmacologi perry strategies, such as physical [...] disability status for worker's compensation purposes, with twalcn-lk-pepw timing to be determined based on future [...] approach. Emphasizing communication with his worker's compensation telemarketing representative s and healthcare providers regarding changes [...] has been deemed 100% disabled by the roof cement and paint maker helper, Dr. Meza; however, he has not received [...] was advised to follow up with his roof cement and paint maker helper, Dr. Meza. -The Toradol 30 intramuscular injection [...] his employer and follow up with his roof cement and paint maker helper. He was instructed to monitor his pain [...] a new disc herniation at T12-L1 with ualgjtgc-go-xv dillon stenosis at L3-4 and L5-S1 and hfxy-vl-yvlwwl te stenosis at other levels. There is [...] need for surgical intervention, referral to a admissions specialist was considered a future option. Managing [...] Ambien and tizanidine. The prescription monitoring program (LEGAL WORD PROCESSOR I-STOP) was reviewed to ensure compliance with [...] fractures. The patient requests an extension for [facility] paperwork related to this injury. He has [...] additional injuries or complications. Treatment Plan The [facility] paperwork was completed and signed to accommodate [...] good symptom control. The Prescription Monitoring Program (LEGAL WORD PROCESSOR) was reviewed to ensure safe prescribing of [...] mg IM injection for back pain. Reviewed LEGAL WORD PROCESSOR for controlled substance safety. Counseled patient on [...] follow-up imaging for confirmation and assessment of healing.Issac goff Side Effects: Emphasized monitoring for potential complications [...] -The refills were provided as requested. - LEGAL WORD PROCESSOR-I stop was reviewed with the patient today. [...] effects were discussed with the patient. - LEGAL WORD PROCESSOR-I stop was reviewed with the patient today. [...] effects were discussed with the patient. - LEGAL WORD PROCESSOR-I stop was reviewed with the patient today. [...] dependence, sedation, constipation, and respiratory depression. The LEGAL WORD PROCESSOR I-STOP was reviewed to ensure appropriate use [...] times daily for chronic pain management. The LEGAL WORD PROCESSOR I-STOP was reviewed for appropriate use. 2. [...] good efficacy and no adverse effects. The LEGAL WORD PROCESSOR I-STOP was reviewed to ensure appropriate use [...] after labs and imaging for further management. 06/12/2025 Encounter related to worker's compensation claim (ICD-10 - Z02.6) The patient's work-related musculoskeletal complaints were addressed, and appropriate documentation and referrals were provided. Medical Decision Making (MDM) and Treatment Plan: The patient's lumbar radiculopathy and right shoulder pain were assessed. Referral to orthopedic surgery (Dr. Fabien Johnson) was provided for further evaluation and management of both conditions. Orders were placed for Toradol intramuscular injection (60 mg, pending) and vitamin B12 injection (up to 1000 mcg, pending) for symptomatic relief. The patient was counseled on the potential side effects of Toradol, including gastrointestin al upset, renal risks, and bleeding, especially in [...] 5. Follow-up appointment scheduled in four weeks. 03/07/2025 Seasonal allergies (ICD-10 - J30.2) A [...] good efficacy and no adverse effects. The LEGAL WORD PROCESSOR I-STOP was reviewed to ensure appropriate use [...] for any side effects or complications. 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 The LEGAL WORD PROCESSOR I-STOP was reviewed to ensure appropriate use [...] times daily for chronic pain management. The LEGAL WORD PROCESSOR I-STOP was reviewed for appropriate use. 2. [...] told him he needs to have a mink slicer and the patient states that he is trying to find a mink slicer who speaks Romanian. 12/24/2024 Pain in right leg (ICD-10 - [...] -The refills were provided as requested. - LEGAL WORD PROCESSOR-I stop was reviewed with the patient today. [...] good symptom control. The Prescription Monitoring Program (LEGAL WORD PROCESSOR) was reviewed to ensure safe prescribing of [...] mg IM injection for back pain. Reviewed LEGAL WORD PROCESSOR for controlled substance safety. Counseled patient on [...] a new disc herniation at T12-L1 with ithibirt-ni-vz dillon stenosis at L3-4 and L5-S1 and vdmi-fg-wyqfpr te stenosis at other levels. There is [...] need for surgical intervention, referral to a admissions specialist was considered a future option. Managing [...] a new disc herniation at T12-L1 with gkyatkwm-gd-rr dillon stenosis at L3-4 and L5-S1 and iskw-ah-owqlig te stenosis at other levels. There is [...] need for surgical intervention, referral to a admissions specialist was considered a future option. Managing [...] disability status for worker's compensation purposes, with atneta-vn-ydva timing to be determined based on future [...] approach. Emphasizing communication with his worker's compensation telemarketing representative s and healthcare providers regarding changes [...] was referred to Urgent Care at the [facility] for further evaluation and to complete a [...] Tramadol, Montelukast, and Zolpidem were processed. The LEGAL WORD PROCESSOR I-STOP was reviewed with the patient during the visit. The patient was advised to follow up in one month or sooner if any need arises. - Prescribed Tessalon Perles for cough. - Prescribed Trelegy Ellipta inhaler. - Processed refills for Tramadol, Montelukast, and Zolpidem. - Reviewed LEGAL WORD PROCESSOR I-STOP. - Follow up in one month. [...] Tramadol, Montelukast, and Zolpidem were processed. The LEGAL WORD PROCESSOR I-STOP was reviewed with the patient during the visit. The patient was advised to follow up in one month or sooner if any need arises. - Prescribed Tessalon Perles for cough. - Prescribed Trelegy Ellipta inhaler. - Processed refills for Tramadol, Montelukast, and Zolpidem. - Reviewed LEGAL WORD PROCESSOR I-STOP. - Follow up in one month. [...] to optimize care and therapeutic outcomes. 10/11/2024 long-term current use of opiate analgesic (ICD-10 - [...] 2. The patient is advised to have erisa attorney for his Worker's Comp case as [...] disability status for worker's compensation purposes, with raqdxz-mn-aflp timing to be determined based on future [...] approach. Emphasizing communication with his worker's compensation telemarketing representative s and healthcare providers regarding changes [...] has been deemed 100% disabled by the roof cement and paint maker helper, Dr. Meza; however, he has not received [...] was advised to follow up with his roof cement and paint maker helper, Dr. Meza. -The Toradol 30 intramuscular injection [...] his employer and follow up with his roof cement and paint maker helper. He was instructed to monitor his pain levels and report any changes or worsening of symptoms. 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 There is [...] need for surgical intervention, referral to a admissions specialist was considered a future option. Managing [...] was advised to avoid alcohol and other HOUSEHOLD PERSONAL ASSISTANT depressants while taking Ambien, and non-pharmacologi perry [...] good symptom control. The Prescription Monitoring Program (LEGAL WORD PROCESSOR) was reviewed to ensure safe prescribing of [...] mg IM injection for back pain. Reviewed LEGAL WORD PROCESSOR for controlled substance safety. Counseled patient on [...] -The refills were provided as requested. - LEGAL WORD PROCESSOR-I stop was reviewed with the patient today. Adv on general care back. Use heating pad, Bengay cream to back as needed. Avoid any identifying/iden tified triggers. Sleep on firm mattress. 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 Adv on proper lifting technique. This is a 59-year-old male patient presenting today via [place] for a follow up visit for medical [...] -The refills were provided as requested. - LEGAL WORD PROCESSOR-I stop was reviewed with the patient today. [...] effects were discussed with the patient. - LEGAL WORD PROCESSOR-I stop was reviewed with the patient today. [...] 2. The patient is advised to have erisa attorney for his Worker's Comp case as [...] dependence, sedation, constipation, and respiratory depression. The LEGAL WORD PROCESSOR I-STOP was reviewed to ensure appropriate use [...] times daily for chronic pain management. The LEGAL WORD PROCESSOR I-STOP was reviewed for appropriate use. 2. [...] good efficacy and no adverse effects. The LEGAL WORD PROCESSOR I-STOP was reviewed to ensure appropriate use [...] tendon dysfunction, right (ICD-10 - M76.821) 03/07/2025 long-term current use of opiate analgesic (ICD-10 - [...] good efficacy and no adverse effects. The LEGAL WORD PROCESSOR I-STOP was reviewed to ensure appropriate use [...] effects were discussed with the patient. - LEGAL WORD PROCESSOR-I stop was reviewed with the patient today. [...] -The refills were provided as requested. - LEGAL WORD PROCESSOR-I stop was reviewed with the patient today. [...] -The refills were provided as requested. - LEGAL WORD PROCESSOR-I stop was reviewed with the patient today. [...] good symptom control. The Prescription Monitoring Program (LEGAL WORD PROCESSOR) was reviewed to ensure safe prescribing of [...] mg IM injection for back pain. Reviewed LEGAL WORD PROCESSOR for controlled substance safety. Counseled patient on [...] follow-up imaging for confirmation and assessment of healing.Issac goff Side Effects: Emphasized monitoring for potential complications such as worsening pain or respiratory issues. This is a 59-year-old male patient presenting today via telemed for his workers compensation follow up visit. The patient presents with severe pain following a work-related injury. He has been deemed 100% disabled by the roof cement and paint maker helper, Dr. Meza; however, he has not received [...] was advised to follow up with his roof cement and paint maker helper, Dr. Meza. -The Toradol 30 intramuscular injection [...] his employer and follow up with his roof cement and paint maker helper. He was instructed to monitor his pain [...] disability status for worker's compensation purposes, with ceowrk-bn-hknl timing to be determined based on future [...] approach. Emphasizing communication with his worker's compensation telemarketing representative s and healthcare providers regarding changes [...] or smell. Medical Decision Making: The medical decision-makehtan kay process involves addressing the patient's need [...] has been deemed 100% disabled by the roof cement and paint maker helper, Dr. Meza; however, he has not received [...] was advised to follow up with his roof cement and paint maker helper, Dr. Meza. -The Toradol 30 intramuscular injection [...] his employer and follow up with his roof cement and paint maker helper. He was instructed to monitor his pain levels and report any changes or worsening of symptoms. 02/10/2025 long-term current use of opiate analgesic (ICD-10 - Z79.891) The patient's chronic opioid use was documented and monitored, with the Prescription Monitoring Program (LEGAL WORD PROCESSOR) reviewed to ensure safe prescribing practices. The [...] good symptom control. The Prescription Monitoring Program (LEGAL WORD PROCESSOR) was reviewed to ensure safe prescribing of [...] mg IM injection for back pain. Reviewed LEGAL WORD PROCESSOR for controlled substance safety. Counseled patient on [...] -The refills were provided as requested. - LEGAL WORD PROCESSOR-I stop was reviewed with the patient today. [...] effects were discussed with the patient. - LEGAL WORD PROCESSOR-I stop was reviewed with the patient today. [...] side effects from the new medications. 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 - LEGAL WORD PROCESSOR-I stop was reviewed with the patient today. [...] of Care: Ongoing monitoring and referral to admissions specialist if surgery becomes necessary.Non-ph armacological strategies: Maintain a regimen of therapeutic exercise and posture correction. This is a 59-year-old male patient presenting today via telemed for his workers compensation follow up visit. The patient presents with severe pain following a work-related injury. He has been deemed 100% disabled by the roof cement and paint maker helper, Dr. Meza; however, he has not received [...] was advised to follow up with his roof cement and paint maker helper, Dr. Meza. -The Toradol 30 intramuscular injection [...] his employer and follow up with his roof cement and paint maker helper. He was instructed to monitor his pain levels and report any changes or worsening of symptoms. 07/02/2024 Other By signing my name below, IMaryellenGabinobeth Martinez, attest that this documentation has been prepared [...] to visit urgent care if pain worsens. 08/15/2024 Other Please understand that telemedicine-bas ed services may not be as complete as mfwn-cn-wjgq services. If your Provider believes you would be better served by another form of medical services (e.g. face to face services) you will be asked to make a euwx-fo-zuct appointment. There are potential risks and benefits associated with any form of medical treatment. You may expect the anticipated benefits from the use of telemedicine in your care, but no results can be guaranteed or assured. Scribed for Hiram SLAUGHTER by [facility] Scribe. All medical record entries made by [...] colonoscopy and any pending blood work issues. 06/17/2024 Other By signing my name below, [...] to monitor for any potential side effects. 08/02/2024 Other By signing my name below, [...] was referred to Urgent Care at the [facility] for further evaluation and to complete a [...] Other By signing my name below, Gabino Rosales attest that this documentation has been [...] area dry. - Recommended loose clothing. 08/02/2024 Other By signing my name below, [...] ROBBI Lomax. All diagnoses new to me 08/29/2024 Other Today's treatment consisted of trigger [...] in one month for follow up care. 06/20/2024 Other Plan will be to give him Sutab and also gave him samples of Linzess 290 mcg to use for the week before the test to try to make his colon to be emptier prior to the prep, so hopefully we can get the procedure done with a good prep. 10/01/[address] Mary Traore MD by Zakia Beckham Appraisal Coordinator. All medical record entries made by the Scribe were at my direction and personally dictated by me. I have reviewed the chart and agree that the record accurately reflects, the personal performance of the history, physical exam, medical decision-making, and instructions for this patient. I have also personally directed, reviewed, and agree with the patient's education and plan 06/25/2024 Other By signing my name below, [...] Rosales attfrank that this documentation has been prepared [...] results of his evaluation at urgent care. 08/26/2024 Other By signing my name below, Stu Rosalesma, attest that this documentation has been prepared [...] monitor for any side effects or complications. 09/02/2024 Other By signing my name below, Beth [...] up with his primary care physician and nursing program director, Dr. Preciado, to discuss long-term pain management strategies and assess for vitamin B12 deficiency. He should report any worsening or new symptoms. 07/26/2024 Other By signing my name below, Gabino [...] Tramadol, Montelukast, and Zolpidem were processed. The LEGAL WORD PROCESSOR I-STOP was reviewed with the patient during the visit. The patient was advised to follow up in one month or sooner if any need arises. - Prescribed Tessalon Perles for cough. - Prescribed Trelegy Ellipta inhaler. - Processed refills for Tramadol, Montelukast, and Zolpidem. - Reviewed LEGAL WORD PROCESSOR I-STOP. - Follow up in one month. 11/05/2024 Other By signing my name below, [...] Ambien and tizanidine. The prescription monitoring program (LEGAL WORD PROCESSOR I-STOP) was reviewed to ensure compliance with [...] options such as physical therapy, was recommended. 07/15/2024 Other By signing my name below, Stu [...] monitor for any side effects or complications. 09/16/2024 Other By signing my name below, Beth Rosales, attest that this documentation has been [...] advised to continue follow-up with Dr. Meza. [facility] paperwork was facilitated for a planned recovery [...] a safe return to work is necessary. 10/14/2024 Other By signing my name below, I, Trudy Ureña, attest that this documentation has been prepared [...] was emphasized to prevent recurrence and resistance. 07/29/2024 Other By signing my name below, I Stu Montes, attfrank that this documentation has [...] monitor for any side effects or complications. 09/16/2024 Other 1. He is complaining of [...] xxxxxxxxxxxxx Scribed for Rodolfo Meza M.D., by Lauri Martinez Appraisal Coordinator. All medical record entries made by the Scribe were at my direction and personally dictated by me. I have reviewed the chart and agree that the record accurately reflects personal performance of the history, physical exam, medical decision making, and the instructions for this patient. I have also personally directed, reviewed, and agreed with the patient's education and plan. 07/01/2024 Other By signing my name below, I, [...] in 4 weeks to reassess pain management. 07/05/2024 Other By signing my name below, [...] Villegas MD By signing my name below, Connie Syedanasim Roe, attest that this documentation has been [...] complications such as infection or chronic pain. 09/16/2024 Other By signing my name below, Beth Rosales, attest that this documentation has been [...] of Bebeto Villegas MD Electronically Signed: Syeda Hillraymond This is a 58-year-old male patient presenting [...] healthcare providers to ensure adequate pain management. 09/13/2024 Other By signing my name below, [...] 5 mg for chronic pain management. The LEGAL WORD PROCESSOR I-STOP was reviewed with the patient during [...] 09/13/2024 Other By signing my name below, IИрина attest that this documentation has been prepared [...] services may not be as complete as goyx-ek-sucb services. If your Provider believes you would be better served by another form of medical services (e.g. face to face services) you will be asked to make a bkwn-sy-mgug appointment. There are potential risks and benefits associated with any form of medical treatment. You may expect the anticipated benefits from the use of telemedicine in your care, but no results can be guaranteed or assured. . Scribed for ROBBI Ruelas by Gary Gamino Appraisal Coordinator. All medical record entries made by the Scribe were at my direction and personally dictated by me. I have reviewed the chart and agree that the record accurately reflects my personal performance of the history, physical exam, medical decision-making, and instructions for this patient. I have also personally directed, reviewed, and agreed with the patient's education and plan. r 09/19/2024 Other By signing my name below, [...] for any side effects or complications. 09/18/2024 Other By signing my name below, Ирина Rosales, felix that this documentation has been [...] ROBBI Lomax. all diagnoses new to me 09/18/2024 Other 1. The patient is complaining [...] Comp. Scribed for Rodolfo Meza M.D., by Jimmie Kraft, Appraisal Coordinator. All medical record entries made by the Scribe were at my direction and personally dictated by me. I have reviewed the chart and agree that the record accurately reflects personal performance of the history, physical exam, medical decision making, and the instructions for this patient. I have also personally directed, reviewed, and agreed with the patient's education and plan. 09/26/2024 Other By signing my name below, Gabino Rosales, feilx that this documentation has been prepared under [...] refill for Tramadol was provided, and the LEGAL WORD PROCESSOR I-STOP was reviewed with the patient during [...] Traore. - Keep appointment with Dr. Schulte. 09/30/2024 Other Colonoscopy. 10/11/2024 Other By signing my name below, I, Beth Davenportudhary, attest that this documentation has been prepared [...] 10/11/2024 Other By signing my name below, IBeth, [...] symptoms before the next scheduled visit. 10/28/2024 Other By signing my name below, [...] fractures. The patient requests an extension for [facility] paperwork related to this injury. He has [...] additional injuries or complications. Treatment Plan The [facility] paperwork was completed and signed to accommodate [...] at promoting recovery and return to work. 10/24/2024 Other By signing my name below, Stu [...] MD By signing my name below, Mami Rosales attest that this documentation has been [...] for any side effects or complications. 10/25/2024 Other Scribed for Rodolfo Meza M.D., by Jimmie Kraft Appraisal Coordinator. All medical record entries made by the [...] Dr. Mary Traore MD by Zakia Beckham Appraisal Coordinator. All medical record entries made by the Scribe were at my direction and personally dictated by me. I have reviewed the chart and agree that the record accurately reflects, the personal performance of the history, physical exam, medical decision-making, and instructions for this patient. I have also personally directed, reviewed, and agree with the patient's education and plan 11/02/2024 Other 1. As the patient is [...] for Rodolfo Meza M.D., by Jimmie Kraft Appraisal Coordinator. All medical record entries made by the Scribe were at my direction and personally dictated by me. I have reviewed the chart and agree that the record accurately reflects personal performance of the history, physical exam, medical decision making, and the instructions for this patient. I have also personally directed, reviewed, and agreed with the patient's education and plan. 11/08/2024 Other By signing my name below, ITrudy, attest that this documentation has been prepared under the direction and in the presence of Bebeto Villegas MD I, Bebeto Villegas personally performed the services described in this [...] has been deemed 100% disabled by the roof cement and paint maker helper, Dr. Meza; however, he has not received [...] breath, or dizziness today. MEDICAL DECISION-SATISH Shen Differential Diagnoses Chronic pain: Persistent pain following [...] was advised to follow up with his roof cement and paint maker helper, Dr. Meza. -The Toradol 30 intramuscular injection [...] his employer and follow up with his roof cement and paint maker helper. He was instructed to monitor his pain [...] 11/15/2024 Other By signing my name below, IJos, attest that this documentation has been prepared [...] 11/26/2024 Other By signing my name below, Beth [...] disability status for worker's compensation purposes, with kjdswt-[id number] timing to be determined based on future [...] approach. Emphasizing communication with his worker's compensation telemarketing representative s and healthcare providers regarding changes in pain levels or functionality was essential to better tailor his care. 11/26/2024 Other By signing my name below, I, Beth Rolando, attest that this documentation has been prepared [...] Treatment Plan The patient was prescribed a Z-Kdoy to manage the potential secondary bacterial infection. [...] is no improvement or if worsening occurs. 11/29/2024 Other 1. The patient is complaining [...] for Rodolfo Meza M.D., by Jimmie Kraft Appraisal Coordinator. All medical record entries made by the Scribe were at my direction and personally dictated by me. I have reviewed the chart and agree that the record accurately reflects personal performance of the history, physical exam, medical decision making, and the instructions for this patient. I have also personally directed, reviewed, and agreed with the patient's education and plan. 12/05/2024 Other By signing my name below, IStu, [...] Villegas MD By signing my name below, ILuisitoSyedanasim Roe, attfrank that this documentation has been supervised [...] monitor for any side effects or complications. 12/23/2024 Other RISKS AND BENEFITS: The possible [...] for Rodolfo Meza M.D., by Jimmie Kraft Appraisal Coordinator. All medical record entries made by the [...] Scribed for Dr. Mary Traore MD by Jesse Young Scribe. All medical record entries made by the Scribe were at my direction and personally dictated by me. I have reviewed the chart and agree that the record accurately reflects, the personal performance of the history, physical exam, medical decision-making, and instructions for this patient. I have also personally directed, reviewed, and agree with the patient's education and plan 12/26/2024 Other By signing my name below, I, Trudy Ureña, attest that this documentation has been prepared [...] effects were discussed with the patient. - LEGAL WORD PROCESSOR-I stop was reviewed with the patient today. [...] Other By signing my name below, Trudy Rosales attest that this documentation has been [...] Other By signing my name below, Trudy Rosales attest that this documentation has been [...] -The refills were provided as requested. - LEGAL WORD PROCESSOR-I stop was reviewed with the patient today. [...] 02/10/2025 Other By signing my name below, IStu, attest [...] signing my name below, I, Syeda Roe, attfrank that this documentation has been supervised [...] good symptom control. The Prescription Monitoring Program (LEGAL WORD PROCESSOR) was reviewed to ensure safe prescribing of [...] mg IM injection for back pain. Reviewed LEGAL WORD PROCESSOR for controlled substance safety. Counseled patient on [...] good efficacy and no adverse effects. The LEGAL WORD PROCESSOR I-STOP was reviewed to ensure appropriate use [...] for any side effects or complications. 06/02/2025 Other By signing my name below, [...] after labs and imaging for further management. 05/27/2025 Other By signing my name below, Stu Rosales, felix that this documentation has been [...] Villegas MD By signing my name below, Sydea Rosales, felix that this documentation has been [...] dependence, sedation, constipation, and respiratory depression. The LEGAL WORD PROCESSOR I-STOP was reviewed to ensure appropriate use [...] times daily for chronic pain management. The LEGAL WORD PROCESSOR I-STOP was reviewed for appropriate use. 2. [...] sooner if new symptoms or concerns arise. 06/12/2025 Other By signing my name below, [...] were assessed. Referral to orthopedic surgery (Dr. Fabien Johnson) was provided for further evaluation and management of both conditions. Orders were placed for Toradol intramuscular injection (60 mg, pending) and vitamin B12 injection (up to 1000 mcg, pending) for symptomatic relief. The patient was counseled on the potential side effects of Toradol, including gastrointestin al upset, renal risks, and bleeding, especially in [...] scheduled in four weeks. Plan Of Treatment Pending Test Test Name Order Date EKG* 08/18/2020 TSH 04/21/2016 Hepatitis Panel* [id number] 08/03/2017 [place] Eye Exam with Fluorescein [...] 06/02/2025 PSA Antigen-[facility] 06/02/2025 Thyroid Stimulating Hormone 6-[facility]Czsk lica 06/02/2025 Vitamin D Total-[facility] 06/02/2025 Comp Metabolic Panel (14)-[facility] 06/02 Lipid Panel-[facility] 06/02/2025 Hemoglobin A1c * 12584 06/09/2025 ESR (sed rate) * [id number] 06/09/2025 CBC W/DIFF with Refx to Retic (new) IN H OUSE *6* 06/09/2025 Next Appt Details Provider Name:MARY TRAORE, 10:00:00 AM, [address], [place], [address], Insurance Providers Payer Name Payer Address Payer Phone Subscriber Number Group Number Insured Name Patient Relationship to Insured Coverage Start Date Coverage End Date [facility] [employer] [address] [address] [place] [address] [id number] Tino Phillips Self - [facility] the [facility] [address] [address] [place] [address] [id number] [employer], Employee [employer] [facility] [id number] Unknown, Employee [employer] [phone] [id number] [place] [address] 2024 [employer], Employee [facility] [id number] [place] [address] [id number] [employer], Employee Medications Administered Medication Instructions Date [...] 1000 ug Toradol IM 03/13/2025 60 mg Toradol IM 06/12/2025 60 mg Vitamin B12 Injection up to 1000mcg 06/12/2025 Medical (General) History Medical History History ICD Code Low back pain M54.5 Essential hypertension I10 Carpal tunnel syndrome of right wrist G5 6.01 obesity asthma Lumbar disc disorder GERD Primary insomnia Surgical History Surgery Date(Month/Year) Lipoma left flank removal R wrist surgery- carpel tunnel surgery 1 Hospitalization History Reason Date(Month/Year) same as above
--- OUTSIDE RECORDS SUMMARY | 2025-06-15 15:33 | XMS_ITS | Encounter Summary ---
Author Organization [employer] Address [address] [place] [address] 7 [place] [address] Care Team Providers Care Academy Director Name Role Phone Missy Mcwilliams MD Primary Care Provider [phone] Reason for Visit * Reason Onset Date Comments Med Refill 05/22/2025 Encounter Details Date Type Department Care Team ([facility] st Contact Info) Description 05/22/2025 Telephone [facility] [address] [place] [address] Missy Mcwilliams MD [address] [place] [id number] Med Refill Social History Tobacco Use Types [...] 15 tablets of zolpidem (Ambien) 10 mg [facility] pharmacy. documented in this encounter Plan of Treatment Upcoming Encounters Date Type Department Care Team (Late st Contact Info) Description 06/19/2025 1:00 PM EST Clinical Support [facility] [address] [place] [address] Mirta Valerio RN [address] [place] [address] 06/19/2025 2:30 PM EST Clinical Support [facility] [address] [place] [address] 07/22/2025 10:15 AM EST Office Visit [facility] [address] [place] [address] Name, MD Nestor [address] [place] [address] documented as of this encounter Visit Diagnoses Not on filedocumented in this encounter Care Teams Academy Director Relationship Specialty Start Date End Date Missy Mcwilliams MD [address] [place] [address] PCP - General Family Medicine 03/31/25 documented as of this encounter
--- OUTSIDE RECORDS SUMMARY | 2025-06-15 15:33 | XMS_ITS | Encounter Summary ---
Author Organization [employer] Address [address] [place] [address] [place] [address] Care Team Providers Care Husbandry Person Name Role Phone Missy Mcwilliams MD Primary Care Provider [phone] Reason for Visit * Reason Onset Date Comments New Patient Request 01/31/2025 Encounter Details Date Type Department Care Team (Late st Contact Info) Description 01/31/2025 Telephone [facility] [address] [place], [place] [phone] Navarro Ariza MD [address] [place], [place] [phone] New Patient Request Social History Tobacco Use [...] EDT Outgoing call to pt to book DIGITAL PRODUCER appt with [facility] office. No answer. Left message. * Telephone Encounter - Corrie Alejandra - 01/31/2025 11:14 AM EDT TC from caller requesting NEW PATIENT visit . DX : N/A Medical Concern: Back Pain (Fall) Insurance name : [employer] Location : Sooner available Demographic information updated documented in this encounter Plan of Treatment Upcoming Encounters Date Type Department Care Team ([facility] st Contact Info) Description 06/19/2025 1:00 PM EST Clinical Support [facility] [address] [place] [address] Mirta Valerio RN [address] [place] [address] 06/19/2025 2:30 PM EST Clinical Support [facility] [address] [place] [address] 07/22/2025 10:15 AM EST Office Visit [facility] [address] [place] [address] Name, MD Nestor [address] [place] [address] documented as of this encounter Visit Diagnoses Not on filedocumented in this encounter Care Teams Husbandry Person Relationship Specialty Start Date End Date Missy Mcwilliams MD [address] [place] [address] PCP - General Family Medicine 03/31/25 documented as of this encounter
[2025-06-15] MEDS: Lidocaine 4 % Patch ADH..PATCH 1 PATCH TRANSDERMA (18:22)
[2025-06-15 18:40] VITALS: BP 152/90; PULSE 75; RESP 16; TEMP 36.6; O2SAT 98
[2025-06-15 18:54] VITALS: BP 152/90; PULSE 75; RESP 16; TEMP 36.6; O2SAT 98
== END 2025-06-15 18:54 | disposition home or self-care (01) ==
PROVIDERS: Physician Assistant; Emergency Provider Emergency Medicine; PCP Family Medicine
DX: M54.16 Radiculopathy, lumbar region (principal); M25.551 Pain in right hip; Z79.899 Other long term (current) drug therapy
CPT/HCPCS: 36415; 72100; 73502; 80053; 81003; 85025; 96372; 99284; J1885

== ENCOUNTER → 2025-06-15 14:57 | Outpatient (BNV) | payer MEDICAID, SELFPAY | PROVIDERS: PCP Family Medicine; Visit Provider Radiology Diagnostic Radiology | DX: M25.551 Pain in right hip (principal); M51.360 Other intervertebral disc degeneration, lumbar region with discogenic back pain only | CPT/HCPCS: 72100; 73502 ==

== ENCOUNTER 2025-06-16 08:07 | Outpatient (REF) | payer MEDICAID, SELFPAY ==
--- OUTSIDE RECORDS SUMMARY | 2025-03-13 09:15 | XMS_ITS ---
Author Organization [facility] C Address [address] [place] [address] Care Team Providers Care Waste Baler Name Role Phone BEBETO VILLEGAS Primary Care Provider [phone] CHANTAL DALLAS Unavailable [phone] REASON FOR VISIT b-12, tordol shot Encounters Encounter Location Date Provider Diagnosis [facility] [address] [place] [address] 03/13/2025 BEBETO VILLEGAS Plan Of Treatment Next Appt Details Provider Name:MARY TRAORE, 10:00:00 AM, [address] [place], [address], Medications Administered Medication Instructions Date of Administration Dosage Notes Vitamin B12 Injection up to 1000mcg 03/13/2025 1000 ug Toradol IM 03/13/2025 60 mg Progress Notes * Tino CERVANTESDOB:1965 ([age] yo M)Acc No.[id number]:03/13/2025 Progress Note Patient: Tino Art Provider: Brodie VILLEGAS MD :1965 A ge:59 Y S ex:Male Date:03/13/2025 Address:[address], [address], [id number] Check In:02:15 PM ESTCheck O ut:02:33 PM EST Subjective: * Chief Complaints: * B -12, tordol shot Plan: * Therapeutic Injections: Vitamin B12 Injection up to 1000mcg : 1000 mcg (Route: Subcutaneous) given by Nena Wix on left gluteus Toradol IM : 60 mg (Route: Intramuscular) given by Nena Smithx on right gluteus * Procedure Codes: J 3420 INJ VIT B-12 CYNOCOBLMN TO 1000 [id number] THER/PROPH/DIAG INJ, [id number] INJ KETOROLAC TROMETHAMINE 15 MG, Units: 4.00 Billing Information: * Procedure Codes: J3420 INJ VIT B-12 CYNOCOBLMN TO 1000 MCG. 13531 THER/PROPH/DIAG INJ, SC/IM. J1885 INJ KETOROLAC TROMETHAMINE 15 MG. Units: 4.00. * Electronic signature of WILLIAMS VILLEGAS MD, [id number] on 06/16/2025 at 08:29 AM EST Sign off status: Pending * Provider: Brodie VILLEGAS MD Date: 0 03/13/2025 Generated for Lalita castro/Florian/Oni on: 1 08/16/2024 08:29 AM EST
--- OUTSIDE RECORDS SUMMARY | 2025-03-21 08:15 | XMS_ITS ---
Author Organization [facility] Address [address] [place] [address] Care Team Providers Care Director Digital Analytics Name Role Phone BEBETO VILLEGAS Primary Care Provider CHANTAL DALLAS Unavailable [phone] JANET QUACH Unavailable [phone] REASON FOR VISIT Right Hip (new issue-needs X-rays) Encounters Encounter Location Date Provider Diagnosis [address] [place] [address] 03/21/2025 JANET QUACH Plan Of Treatment Next Appt Details Provider Name:MARY TRAORE, 10:00:00 AM, [address], [place], [address], Progress Notes * HELEN TinoDOB:1965 ([age] yo M)Acc No.[id number]:03/21/2025 Progress Notes Patient: Tino Art Provider: Patricia QUACH MD :1965 A ge:59 Y S ex:Male Date:03/21/2025 Address:[address], [address], [place], [place] Pcp:BEBETO VILLEGAS Subjective: * Chief Complaints: * R ight Hip (new issue-needs X-rays) * Electronic signature of NITIN QUACH MD, [id number] on 06/16/2025 at 08:27 AM EST Sign off status: Pending * Provider: Patricia QUACH MD Date: 0 03/21/2025 Generated for Lalita castro/Florian/Vincentitting on: 1 08/16/2024 08:27 AM EST
--- OUTSIDE RECORDS SUMMARY | 2025-04-10 08:00 | XMS_ITS ---
Author Organization [facility] Address [address] [place] [address] Care Team Providers Care Box Blank Machine Operator Helper Name Role Phone BEBETO VILLEGAS Primary Care Provider CHANTAL DALLAS Unavailable [phone] JANET QUACH Unavailable [phone] REASON FOR VISIT RT Hip New Condition, Lumbar Spine, Ribs Pain 09/12/2024 - ref. by Dr. Villegas Encounters Encounter Location Date Provider Diagnosis [address] [facility] [address] [place] [address] 04/10/2025 JANET QUACH Encounter related to worker's [...] Name:MARY LEÓN, 10:00:00 AM, [address], [place], [address], History and Physical Notes * HPI (History of Present Illness) Category Sub-Category Detail Notes Category Not es Today's Visit _ [facility] Order Date: 09/13/2024 Performed Date: 09/13/2024 14:16:00 Transcribed: 09/13/2024 15:11:15 Requesting Physician: IRENE GUALLPA Ordering Physician: IRENE GUALLPA X-ray Lumbar Spine 3V (A/P, Lat, Spot)* REPORT Exam: CLINICAL INFORMATION: Back pain after injury. TECHNIQUE: X-Ray Lumbar Spine, 3 View(s) COMPARISON: 08/02/2024. FINDINGS:Alignment: Icrf-mj-mvxhgqqe convex right thoracolumbar scoliosis. Stablemild grade 1 [...] considered. 15:Tino Morgan M ,1965 Accession ID: [id number] Images viewed on PACS. I agree with the report. [facility] Procedure Date: 09/13/2024 Procedure ID: [id number] Procedure Name: CT Abdomen/Pelvis w* Procedure Notes: [...] PACS. I agree with the report. ____ [facility] Procedure Date: 09/13/2024 Procedure ID: [id number] Procedure Name: X-ray Ribs 3V, right* Procedure [...] * Tino CERVANTESDOB:1965 ([age] yo M)Acc No.[id number]:04/10/2025 Progress Notes Patient: Tino Art Provider: Patricia QUACH MD :1965 A ge:59 Y S ex:Male Date:04/10/2025 Address:[facility] [address], [place], [id number] Pcp:BEBETO VILLEGAS Subjective: * Chief Complaints: * R T Hip New ConditionLumbar Spine, Ribs Pain 09/12/2024 - ref. by Dr. 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 On the way down there was no railings he slipped on the first step, slid down a few stepsand h it his right ribs and the back region on the steps. and he slipped and fell injuring his lower back and his ribs. He was seen at [facility] where broken ribs were found. He was [...] aggravated by movement. Symptoms relieved by Oxycodone. [facility] Order Date: 09/13/2024 Performed Date: 09/13/2024 1 4:16:00 Transcribed: 0 09/13/2024 1 5:11:15 Requesting Physician: IRENE GUALLPA Ordering Physician: IRENE GUALLPA X-ray Lumbar Spine 3V (A/P, Lat, Spot)* REPORT Exam: CLINICAL INFORMATION: Back pain after injury. TECHNIQUE: X-Ray Lumbar Spine, 3 View(s) COMPARISON: 08/02/2024. FINDINGS:Alignment: Bprl-os-ehgtpoqm convex right thoracolumbar scoliosis. Stablemild grade 1 [...] considered. 15:Tino Morgan M ,1965 Accession ID: [id number] Images viewed on PACS. I agree with t he report. [facility] Procedure Date: 09/13/2024 Procedure ID: [id number] Procedure Name: CT Abdomen/Pelvis w* Procedure Notes: [...] 09/13/2024 Report Electronically Signed By: MD Jason, [employer] viewed on [employer]. I agree with t emely report. [facility] Procedure Date: 09/13/2024 Procedure ID: [id number] Procedure Name: X-ray Ribs 3V, right* Procedure [...] 09/13/2024 Report Electronically Signed By: MD Jason, [employer] viewed on [employer]um[employer]. I agree with t emely report. * [...] * Electronic signature of NITIN QUACH MD, [id number] on 06/16/2025 at 08:29 AM EST Sign off status: Pending * Provider: Patricia QUACH MD Date: 0 04/10/2025 Generated for Lalita castro/Florian/eTransmitting on: 1 08/16/2024 08:29 AM EST
--- OUTSIDE RECORDS SUMMARY | 2025-05-27 08:15 | XMS_ITS ---
Author Organization [facility] Address [address] [place] [address] Care Team Providers Care Physician Office Secretary Name Role Phone JOSÉ MIGUEL VILLEGAS Primary Care Provider CHANTAL DALLAS Unavailable [phone] Allergies No Known Allergies REASON FOR VISIT Requests pain medication, Also, reports abdominal pain and requests imaging., [facility]- Start , 1. Sleep Study Recommended: Yes, - - - - - - - - - - - - - - - - - - - - - - - - - -- - - - - - -, BMI: 31.16 (12/24/2024), Hypertension: Yes (02/02/2023), Heart Disease: No Results Found, - - - - - - - - - - - - - - - - - - - - - - - - - - - - - - - - -, 2. Last Colonoscopy: 018, [facility] - End Medications Medication SIG (Take, Route, Frequency, Duration) Notes Start Date End Date Status oxyCODONE HCl 10 MG Tablet 1 tablet as n eeded Orally 3 times a day; Duration: 30 days 05/27/2025 06/26/2025 Active Zithromax Z-Kody 250 MG Tablet 2 tablets on the first day, then 1 tablet daily for 4 days Orally Once a day; Duration: 5 days 01/02/2025 Unknown Gabapentin 400 MG Capsule 1 capsule Oral ly Twice a day; Duration: 90 days Unknown Azelastine HCl 137 MCG/SPRAY Solution 2 puffs (1 spray in each nostril) Nasally Twice a day; Duration: 30 days 11/26/2024 Unknown Albuterol Sulfate HFA 108 (90 Base) MCG/ACT Aerosol Solution INHALE 1 PUFF INTO THE LUNGS EVERY 4 HOURS PRN; Duration: 30 days Unknown Sutab 9915-044-632 MG Tablet 12 tablets the first dose the evening before and second dose the morning of colonoscopy Orally Twice a day; Duration: 1 days 10/25/2024 Unknown oxyCODONE HCl 5 MG Tablet 1 tablet as ne eded Orally every 6 hrs Unknown GaviLyte-C 240 GM Solution Reconstituted milliliter Orally prescribe; Duration: 1 days 10/25/2024 Unknown Azelastine HCl 137 MCG/SPRAY Solution 1 puff in each nostril Nasally Twice a day; Duration: 30 days Unknown Vitamin D (Ergocalciferol) 1.25 MG (21393 UT) Capsule TAKE 1 CAPSULE BY MOUTH ONE TIME PER WEEK FOR 90 DAYS; Duration: 90 Unknown tiZANidine HCl 4 MG Tablet TAKE 1 TABLET BY MOUTH THREE TIMES A DAY; Duration: 30 Unknown Spirometer - Kit as directed; Duratio n: 30 days 09/13/2024 Unknown Pataday 0.1 % Solution 1 drop into affec brittany eye Ophthalmic Twice a day; Duration: 10 days 11/26/2024 Unknown Naproxen 500 MG Tablet TAKE 1 TABLET BY MOUTH EVERY 12 HOURS; Duration: 30 Unknown Trelegy Ellipta 100-62.5-25 MCG/ACT Aerosol Powder Breath Activated 1 puff Inhalation Once a day; Duration: 30 days 07/26/2024 Unknown Montelukast Sodium 10 MG Tablet TAKE 1 TABLET BY MOUTH EVERY DAY; Duration: 90 Unknown Lisinopril 5 MG Tablet 1 tablet Orally O nce a day; Duration: 90 days 11/11/2024 Unknown Social History Social History Additional Details Category Social Info Options Details Drugs/Alcohol: Do you drink alcohol? No Migrated Social History How many drinks? None Smoking Former Smoker Section Notes: denies smoking Encounters Encounter Location Date Provider Diagnosis [place] [address] [place] [address] 05/27/2025 JOSÉ MIGUEL VILLEGAS Lumbar radiculopathy M54.16 ; Abdominal pain R10.84 ; assisted current use of opiate analgesic Z79.891 and Medication management Z79.899 Assessments Encounter Date Diagnosis (ICD Code) Assessment Notes Treatment Notes Treatment Clinical Notes Section Notes 05/27/2025 Lumbar radiculopathy (ICD-10 - M54.16) - Prescribed oxycodone HCl 10 mg tablet, 1 tablet as needed orally three times a day, 30 days. Medical Decision Making (MDM) and Treatment Plan: The patient was evaluated for chronic lumbar radiculopathy , ongoing abdominal pain, and medication management. His medication list was reviewed and reconciled. Oxycodone 10 mg three times daily was prescribed for pain management, with counseling on the risks of long-term opioid therapy including dependence, sedation, constipation, and respiratory depression. The PELLET MACHINE OPERATOR I-STOP was reviewed to ensure appropriate use and monitoring of controlled substances. CT abdomen/pelvi s with IV and PO contrast was ordered to evaluate the etiology of persistent abdominal pain. The importance of medication adherence, regular follow-up, and monitoring for side effects was emphasized. Strategies to improve adherence, such as using a pill organizer or setting reminders, were discussed. The patient was instructed to follow up after imaging for further management and to report any new or worsening symptoms. 1. Prescribed oxycodone 10 mg three times daily for chronic pain management. The PELLET MACHINE OPERATOR I-STOP was reviewed for appropriate use. 2. Ordered CT abdomen/pelvi s with IV and PO contrast for evaluation of abdominal pain. 3. Reviewed risks of long-term opioid therapy and safe use instructions. 4. Emphasized medication adherence, avoidance of sedating agents, and regular monitoring for side effects. 5. Discussed strategies to improve adherence, such as using a pill organizer or setting reminders. 6. Instructed to follow up after CT imaging or sooner if new symptoms or concerns arise. 05/27/2025 Abdominal pain (ICD-10 - R10.84) - Ordered CT abdomen/pelvis with IV and PO contrast for evaluation. Medical Decision Making (MDM) and Treatment Plan: The patient was evaluated for chronic lumbar radiculopathy , ongoing abdominal pain, and medication management. His medication list was reviewed and reconciled. Oxycodone 10 mg three times daily was prescribed for pain management, with counseling on the risks of long-term opioid therapy including dependence, sedation, constipation, and respiratory depression. The PELLET MACHINE OPERATOR I-STOP was reviewed to ensure appropriate use and monitoring of controlled substances. CT abdomen/pelvi s with IV and PO contrast was ordered to evaluate the etiology of persistent abdominal pain. The importance of medication adherence, regular follow-up, and monitoring for side effects was emphasized. Strategies to improve adherence, such as using a pill organizer or setting reminders, were discussed. The patient was instructed to follow up after imaging for further management and to report any new or worsening symptoms. 1. Prescribed oxycodone 10 mg three times daily for chronic pain management. The PELLET MACHINE OPERATOR I-STOP was reviewed for appropriate use. 2. Ordered CT abdomen/pelvi s with IV and PO contrast for evaluation of abdominal pain. 3. Reviewed risks of long-term opioid therapy and safe use instructions. 4. Emphasized medication adherence, avoidance of sedating agents, and regular monitoring for side effects. 5. Discussed strategies to improve adherence, such as using a pill organizer or setting reminders. 6. Instructed to follow up after CT imaging or sooner if new symptoms or concerns arise. 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 Patient made aware of drug addictive potential. Patient advised not to take medication, drink, drive or operate heavy machinery. Advised patient can from respiratory depression. Patient voiced understanding. Medical Decision Making (MDM) and Treatment Plan: The patient was evaluated for chronic lumbar radiculopathy , ongoing abdominal pain, and medication management. His medication list was reviewed and reconciled. Oxycodone 10 mg three times daily was prescribed for pain management, with counseling on the risks of long-term opioid therapy including dependence, sedation, constipation, and respiratory depression. The PELLET MACHINE OPERATOR I-STOP was reviewed to ensure appropriate use and monitoring of controlled substances. CT abdomen/pelvi s with IV and PO contrast was ordered to evaluate the etiology of persistent abdominal pain. The importance of medication adherence, regular follow-up, and monitoring for side effects was emphasized. Strategies to improve adherence, such as using a pill organizer or setting reminders, were discussed. The patient was instructed to follow up after imaging for further management and to report any new or worsening symptoms. 1. Prescribed oxycodone 10 mg three times daily for chronic pain management. The PELLET MACHINE OPERATOR I-STOP was reviewed for appropriate use. 2. Ordered CT abdomen/pelvi s with IV and PO contrast for evaluation of abdominal pain. 3. Reviewed risks of long-term opioid therapy and safe use instructions. 4. Emphasized medication adherence, avoidance of sedating agents, and regular monitoring for side effects. 5. Discussed strategies to improve adherence, such as using a pill organizer or setting reminders. 6. Instructed to follow up after CT imaging or sooner if new symptoms or concerns arise. 05/27/2025 Medication management (ICD-10 - Z79.899) Review and update the patient's medication list. Educate the patient on the importance of medication adherence. Discuss strategies to improve adherence, such as using a pill organizer or setting reminders. Schedule a follow-up appointment to reassess medication effectiveness and adherence. Medical Decision Making (MDM) and Treatment Plan: The patient was evaluated for chronic lumbar radiculopathy , ongoing abdominal pain, and medication management. His medication list was reviewed and reconciled. Oxycodone 10 mg three times daily was prescribed for pain management, with counseling on the risks of long-term opioid therapy including dependence, sedation, constipation, and respiratory depression. The PELLET MACHINE OPERATOR I-STOP was reviewed to ensure appropriate use and monitoring of controlled substances. CT abdomen/pelvi s with IV and PO contrast was ordered to evaluate the etiology of persistent abdominal pain. The importance of medication adherence, regular follow-up, and monitoring for side effects was emphasized. Strategies to improve adherence, such as using a pill organizer or setting reminders, were discussed. The patient was instructed to follow up after imaging for further management and to report any new or worsening symptoms. 1. Prescribed oxycodone 10 mg three times daily for chronic pain management. The PELLET MACHINE OPERATOR I-STOP was reviewed for appropriate use. 2. Ordered CT abdomen/pelvi s with IV and PO contrast for evaluation of abdominal pain. 3. Reviewed risks of long-term opioid therapy and safe use instructions. 4. Emphasized medication adherence, avoidance of sedating agents, and regular monitoring for side effects. 5. Discussed strategies to improve adherence, such as using a pill organizer or setting reminders. 6. Instructed to follow up after CT imaging or sooner if new symptoms or concerns arise. 05/27/2025 Other By signing my name below, Stu [...] By signing my name below, I, Syeda Bhupinder, attest that this documentation has been supervised by me under the direction and in the presence of José Miguel Villegas MD Electronically Signed: Syeda Roe Medical Decision Making (MDM) and Treatment Plan: The patient was evaluated for chronic lumbar radiculopathy , ongoing abdominal pain, and medication management. His medication list was reviewed and reconciled. Oxycodone 10 mg three times daily was prescribed for pain management, with counseling on the risks of long-term opioid therapy including dependence, sedation, constipation, and respiratory depression. The PELLET MACHINE OPERATOR I-STOP was reviewed to ensure appropriate use and monitoring of controlled substances. CT abdomen/pelvi s with IV and PO contrast was ordered to evaluate the etiology of persistent abdominal pain. The importance of medication adherence, regular follow-up, and monitoring for side effects was emphasized. Strategies to improve adherence, such as using a pill organizer or setting reminders, were discussed. The patient was instructed to follow up after imaging for further management and to report any new or worsening symptoms. 1. Prescribed oxycodone 10 mg three times daily for chronic pain management. The PELLET MACHINE OPERATOR I-STOP was reviewed for appropriate use. 2. Ordered CT abdomen/pelvi s with IV and PO contrast for evaluation of abdominal pain. 3. Reviewed risks of long-term opioid therapy and safe use instructions. 4. Emphasized medication adherence, avoidance of sedating agents, and regular monitoring for side effects. 5. Discussed strategies to improve adherence, such as using a pill organizer or setting reminders. 6. Instructed to follow up after CT imaging or sooner if new symptoms or concerns arise. Plan Of Treatment Medication Medication Name Sig Start Date Stop Date Notes oxyCODONE HCl 10 MG Tablet 1 tablet as n eeded Orally 3 times a day; Duration: 30 days 05/27/2025 06/26/2025 Treatment Notes Assessment Notes Lumbar radiculopathy - Prescribed oxycod one HCl 10 mg tablet, 1 tablet as needed orally three times a day, 30 days. Abdominal pain - Ordered CT abdomen /pelvis with IV and PO contrast for evaluation. 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 Patient made aware of drug addictive potential. Patient advised not to take medication, drink, drive or operate heavy machinery. Advised patient can from respiratory depression. Patient voiced understanding. Medication management Review and update the patient's medication list. Educate the patient on the importance of medication adherence. Discuss strategies to improve adherence, such as using a pill organizer or setting reminders. Schedule a follow-up appointment to reassess medication effectiveness and adherence. Other By signing my name below, Connie Stu Montes, attest that this documentation has been prepared [...] completed. Electronically Signed: José Miguel Villegas MD Pending Test Test Name Order Date CT Abdomen/Pelvis w* 05/27/2025 Next Appt Details Follow Up: post CT results, Reason: Provider Name:MARY LEÓN, 10:00:00 AM, [address], [place], [address], History and Physical Notes * HPI (History of Present Illness) Category Sub-Category Detail Notes Category Not es HPI The patient is a 59-year-old male presenting via telemedicine for ongoing management of chronic pain and new evaluation of abdominal pain. He requests an increase in pain medication to oxycodone 10 mg three times daily due to persistent lumbar radiculopathy and reports significant pain in the ribs and back. He describes ongoing abdominal pain, particularly in the area of the stomach and bowel, with worsening symptoms upon palpation. He reports ongoing physical therapy but limited relief, and is in the process of applying for disability. He denies chest pain, palpitations, shortness of breath, or dizziness. No other acute complaints were reported. Progress Notes * Chu CERVANTES:1965 ([age] yo M)Acc No.[id number]:05/27/2025 progress notes Patient: Tino Art Provider: Brodie VILLEGAS MD :1965 A ge:59 Y S ex:Male Date:05/27/2025 Address:[facility] [address], [address], [id number] Check Out:02:28 PM EST Subjective: * Chief Complaints: * R equests pain medicationAlso, reports abdominal pain and requests imaging. [facility] - Start 1. Sleep Study Recommended: [...] - - - - - - - -2. Last Colonoscopy: 01/19/2018 [facility] - End * HPI: H PI: Denies : . The patient is a 59-year-old male presenting via telemedicine for ongoing management of chronic pain and new evaluation of abdominal pain. He requests an increase in pain medication to oxycodone 10 mg three times daily due to persistent lumbar radiculopathy and reports significant pain in the ribs and back. He describes ongoing abdominal pain, particularly in the area of the stomach and bowel, with worsening symptoms upon palpation. He reports ongoing physical therapy but limited relief, and is in the process of applying for disability. He denies chest pain, palpitations, shortness of breath, or dizziness. No other acute complaints were reported. * Medical History: Low back pain Essential hypertension Carpal tunnel syndrome of right wrist Obesity Asthma Lumbar disc disorder GERD Primary insomnia Medical History Verified * Surgical History: Lipoma left flank removal R wrist surgery- carpel tunnel surgery 05/2019 Surgical History verified. * Hospitalization/Major Diagno stic Procedure: same as above Hospitalization Verified. * Family History: M igrated Family Hx: Mother: Cancer ; Mother: Diabetes ;. F amily History Verified.. mother liver problems. * Social History: M igrated Social History: H ow many drinks?: None. Smoking: Former Smoker. D rugs/Alcohol: D o you drink alcohol?: No. S ocial History Verified. d enies smoking. * Medications: U nknownAlbuterol Sulfate HFA 108 (90 Base) MCG/ACT Aerosol Solution INHALE 1 PUFF INTO THE LUNGS EVERY 4 HOURS PRN Azelastine HCl 137 MCG/SPRAY Solution 2 puffs (1 spray in each nostril) Nasally Twice a day Azelastine HCl 137 MCG/SPRAY Solution 1 puff in each nostril Nasally Twice a day Gabapentin 400 MG Capsule 1 capsule Orally Twice a day GaviLyte-C 240 GM Solution Reconstituted milliliter Orally prescribe Lisinopril 5 MG Tablet 1 tablet Orally Once a day Montelukast Sodium 10 MG Tablet TAKE 1 TABLET BY MOUTH EVERY DAY Naproxen 500 MG Tablet TAKE 1 TABLET BY MOUTH EVERY 12 HOURS oxyCODONE HCl 5 MG Tablet 1 tablet as needed Orally every 6 hrs Pataday 0.1 % Solution 1 drop into affected eye Ophthalmic Twice a day Spirometer - Kit as directed Sutab 4711-847-652 MG Tablet 12 tablets the first dose the evening before and second dose the morning of colonoscopy Orally Twice a day tiZANidine HCl 4 MG Tablet TAKE 1 TABLET BY MOUTH THREE TIMES A DAY Trelegy Ellipta 100-62.5-25 MCG/ACT Aerosol Powder Breath Activated 1 puff Inhalation Once a day Vitamin D (Ergocalciferol) 1.25 MG (88306 UT) Capsule TAKE 1 CAPSULE BY MOUTH ONE TIME PER WEEK FOR 90 DAYS Zithromax Z-Kody 250 MG Tablet 2 tablets on the first day, then 1 tablet daily for 4 days Orally Once a day Medication List reviewed and reconciled with the patientUnknown Albuterol Sulfate HFA 108 (90 Base) MCG/ACT Aerosol Solution INHALE 1 PUFF INTO THE LUNGS EVERY 4 HOURS PRN Unknown Azelastine HCl 137 MCG/SPRAY Solution 2 puffs (1 spray in each nostril) Nasally Twice a day Unknown Azelastine HCl 137 MCG/SPRAY Solution 1 puff in each nostril Nasally Twice a day Unknown Gabapentin 400 MG Capsule 1 capsule Orally Twice a day Unknown GaviLyte-C 240 GM Solution Reconstituted milliliter Orally prescribe Unknown Lisinopril 5 MG Tablet 1 tablet Orally Once a day Unknown Montelukast Sodium 10 MG Tablet TAKE 1 TABLET BY MOUTH EVERY DAY Unknown Naproxen 500 MG Tablet TAKE 1 TABLET BY MOUTH EVERY 12 HOURS Unknown oxyCODONE HCl 5 MG Tablet 1 tablet as needed Orally every 6 hrs Unknown Pataday 0.1 % Solution 1 drop into affected eye Ophthalmic Twice a day Unknown Spirometer - Kit as directed Unknown Sutab 6729-030-216 MG Tablet 12 tablets the first dose the evening before and second dose the morning of colonoscopy Orally Twice a day Unknown tiZANidine HCl 4 MG Tablet TAKE 1 TABLET BY MOUTH THREE TIMES A DAY Unknown Trelegy Ellipta 100-62.5-25 MCG/ACT Aerosol Powder Breath Activated 1 puff Inhalation Once a day Unknown Vitamin D (Ergocalciferol) 1.25 MG (43363 UT) Capsule TAKE 1 CAPSULE BY MOUTH ONE TIME PER WEEK FOR 90 DAYS Unknown Zithromax Z-Kody 250 MG Tablet 2 tablets on the first day, then 1 tablet daily for 4 days Orally Once a day Medication List reviewed and reconciled with the patient * Allergies: N .K.D.A.yesAllergies Verified. Assessment: * Assessment: 1. L umbar radiculopathy - M54.16 2 . A bdominal pain - R10.84 ?3. L marbella term current use of opiate analgesic - Z79.891 4 . M edication management - Z79.899 Medical Decision Making (MDM ) and Treatment Plan: The patient was evaluated for chronic lumbar radiculopathy, ongoing abdominal pain, and medication management. His medication list was reviewed and reconciled. Oxycodone 10 mg three times daily was prescribed for pain management, with counseling on the risks of long-term opioid therapy including dependence, sedation, constipation, and respiratory depression. The PELLET MACHINE OPERATOR I-STOP was reviewed to ensure appropriate use and monitoring of controlled substances. CT abdomen/pelvis with IV and PO contrast was ordered to evaluate the etiology of persistent abdominal pain. The importance of medication adherence, regular follow-up, and monitoring for side effects was emphasized. Strategies to improve adherence, such as using a pill organizer or setting reminders, were discussed. The patient was instructed to follow up after imaging for further management and to report any new or worsening symptoms. 1. Prescribed oxycodone 10 mg three times daily for chronic pain management. The PELLET MACHINE OPERATOR I-STOP was reviewed for appropriate use. 2. Ordered CT abdomen/pelvis with IV and PO contrast for evaluation of abdominal pain. 3. Reviewed risks of long-term opioid therapy and safe use instructions. 4. Emphasized medication adherence, avoidance of sedating agents, and regular monitoring for side effects. 5. Discussed strategies to improve adherence, such as using a pill organizer or setting reminders. 6. Instructed to follow up after CT imaging or sooner if new symptoms or concerns arise. Plan: * Treatment: 2. A bdominal pain I maging: CT Abdomen/Pelvis w* Notes: - Ordered CT abdomen/pelvis with IV and PO contrast for evaluation. 3. L marbella term current use of opiate analgesic Notes: iStop checked today. Patient made aware of drug addictive potential. Patient advised not to take medication, drink, drive or operate heavy machinery. Advised patient can from respiratory depression. Patient voiced understanding. 4. M edication management Notes: Review and update the patient's medication list. Educate the patient on the importance of medication adherence. Discuss strategies to improve adherence, such as using a pill organizer or setting reminders. Schedule a follow-up appointment to reassess medication effectiveness and adherence. 5. O thers Notes: By signing my name below, IStu, attest that this documentation has been prepared [...] By signing my name below, Syeda Rosales, attest that this documentation has been supervised by me under the direction and in the presence of José Miguel Villegas MD Electronically Signed: Syeda Roe * Follow Up: p ost CT results Billing Information: * Procedure Codes: * Electronic signature of WILLIAMS VILLEGAS MD, [id number] on 06/16/2025 at 08:28 AM EST Sign off status: Pending * Provider: Brodie VILLEGAS MD Date: Generated for Lalita castro/Florian/Oni on: 08/16/2024 08:28 AM EST
--- OUTSIDE RECORDS SUMMARY | 2025-05-29 08:00 | XMS_ITS ---
Author Organization [facility] Address [address] [place] [address] Care Team Providers Care Mold Carrier Name Role Phone BEBETO VILLEGAS Primary Care Provider [phone] CHANTAL DALLAS Unavailable [phone] Abdomen/Pelvis w* Encounters Encounter Location Date Provider Diagnosis [address] [place] [address] 05/29/2025 BEBETO VILLEGAS Plan Of Treatment Next Appt Details Provider Name:MARY TRAORE, 10:00:00 AM, [address], [place], [address], Progress Notes * Tino CERVANTESDOB:1965 ([age] yo M)Acc No.[id number]:05/29/2025 Progress Note Patient: Tino Art Provider: Brodie VILLEGAS MD :1965 A ge:59 Y S ex:Male Date:05/29/2025 Address:[address], [address], [place], [place] Subjective: * Chief Complaints: * C T Abdomen/Pelvis w* * Electronic signature of WILLIAMS VILLEGAS MD, [id number] on 06/16/2025 at 08:27 AM EST Sign off status: Pending * Provider: Brodie VILLEGAS MD Date: Generated for Lalita castro/Florian/eTransmitting on: 1 08/16/2024 08:27 AM EST
--- OUTSIDE RECORDS SUMMARY | 2025-06-02 10:00 | XMS_ITS ---
Author Organization [facility] Address [address] [place] [address] Care Team Providers Care Insurance Case Manager Name Role Phone JOSÉ MIGUEL VILLEGAS Primary Care Provider CHANTAL DALLAS Unavailable [phone] Allergies No Known Allergies REASON FOR VISIT Requesting routine bw Medications Medication SIG (Take, Route, Frequency, Duration) Notes Start Date End Date Status Sutab 6593-527-245 MG Tablet 12 tablets the first dose [...] 07/26/2024 Active Vitamin D (Ergocalciferol) 1.25 MG (41013 UT) Capsule TAKE 1 CAPSULE BY MOUTH [...] 06/02/2025 Encounters Encounter Location Date Provider Diagnosis [address] [place] [address] 06/02/2025 JOSÉ MIGUEL VILLEGAS Essential hypertensi on [...] 06/02/2025 PSA Antigen-[facility] 06/02/2025 Thyroid Stimulating Hormone 4-Mergk-Jqsz lica 06/02/2025 Vitamin D Total-[facility] 06/02/2025 Comp Metabolic Panel (14)-[facility] 06/02 Lipid Panel-[facility] 06/02/2025 Hemoglobin A1c * 39729 06/09/2025 ESR (sed rate) * 90262 06/09/2025 CBC W/DIFF with Refx to Retic (new) IN H OUSE *2115* 06/09/2025 Next Appt Details Follow Up: post BW results, Reason: Provider Name:MARY TRAORE, 10:00:00 AM, [address], [place], [address], History and Physical Notes * HPI (History [...] * Tino CERVANTESDOB:1965 (5 9 yo M)Acc No.[id number]:06/02/2025 progress notes Patient: Tino Art Provider: Brodie VILLEGAS MD :1965 A ge:59 Y S ex:Male Date:06/02/2025 Address:[address] [place] [address] [address], [address] [facility], [id number] Check Out:03:37 PM EST Subjective: [...] day Spirometer - Kit as directed Sutab 3494-822-594 MG Tablet 12 tablets the first dose the evening before and second dose the morning of colonoscopy Orally Twice a day tiZANidine HCl 4 MG Tablet TAKE 1 TABLET BY MOUTH THREE TIMES A DAY Trelegy Ellipta 100-62.5-25 MCG/ACT Aerosol Powder Breath Activated 1 puff Inhalation Once a day Vitamin D (Ergocalciferol) 1.25 MG (99864 UT) Capsule TAKE 1 CAPSULE BY MOUTH [...] Spirometer - Kit as directed Taking Sutab 5833-137-649 MG Tablet 12 tablets the first dose the evening before and second dose the morning of colonoscopy Orally Twice a day Taking tiZANidine HCl 4 MG Tablet TAKE 1 TABLET BY MOUTH THREE TIMES A DAY Taking Trelegy Ellipta 100-62.5-25 MCG/ACT Aerosol Powder Breath Activated 1 puff Inhalation Once a day Taking Vitamin D (Ergocalciferol) 1.25 MG (46806 UT) Capsule TAKE 1 CAPSULE BY MOUTH [...] accurate and completed. Electronically Signed: José Miguel Villeags MD Clinical Notes: By signing my name below, Syeda Rosales, attest that this documentation has been supervised by me under the direction and in the presence of José Miguel Villegas MD Electronically Signed: Syeda Roe * Procedure Codes: 3 008F BODY MASS INDEX [id number] Complex e/m visit add on * Follow Up: p ost BW results Billing Information: * Procedure Codes: 3008F BODY MASS INDEX DOCD. G2211 Complex e/m visit add on. * Electronic signature of WILLIAMS VILLEGAS MD, [id number] on 06/16/2025 at 08:26 AM EST Sign off status: Pending * Provider: Brodie VILLEGAS MD Date: Generated for Lalita castro/Florian/Vincentitting on: 08/16/2024 08:26 AM EST
--- OUTSIDE RECORDS SUMMARY | 2025-06-12 12:00 | XMS_ITS ---
Author Organization [facility] C Address [address] [place] [address] Care Team Providers Care Stock Mover Name Role Phone JOSÉ MIGUEL VILLEGAS Primary Care Provider CHANTAL DALLAS Unavailable [phone] Allergies No Known Allergies Reason For Referral Diagnosis 1 Lumbar radiculopathy (M54.16) Referral Organization [facility] Referring Provider First Name JOSÉ MIGUEL Referring Provider Last Name NELLY Referring Provider Speciality Internal M edicine Referred Organization [facility] Referred Provider FRANCESCA HANSON Referred Address [address],[place], [place],[address], Referred Provider Specialty Orthopedic S urgery Referral Priority Routine REASON FOR VISIT Medical management of lumbar radiculopathy, C/o right shoulder pain worse, Requesting Toradol and B12 injection Medications Medication SIG (Take, Route, Frequency, Duration) Notes Start Date End Date Status James Ellipta 100-62.5-25 MCG/ACT Aerosol Powder Breath Activated 1 puff Inhalation Once a day; Duration: 30 days 07/26/2024 Active Sutab [id number] MG Tablet 12 tablets the first dose the evening before and second dose the morning of colonoscopy Orally Twice a day; Duration: 1 days 10/25/2024 Active tiZANidine HCl 4 MG Tablet TAKE 1 TABLET BY MOUTH THREE TIMES A DAY; Duration: 30 Active Spirometer - Kit as directed; Bitao n: 30 days 09/13/2024 Active Vitamin D (Ergocalciferol) 1.25 MG (06283 UT) Capsule TAKE 1 CAPSULE BY MOUTH [...] smoking Encounters Encounter Location Date Provider Diagnosis [address] [place] [address] 06/12/2025 JOSÉ MIGUEL VILLEGAS Lumbar radiculopathy M54.16 [...] 06/12/2025 06/12/2025, FRANCESCA MAYER, [address], [place], [address], Next Appt Details Follow Up: 4 Weeks, , Reason : 4 week follow up for lumbar radiculopathy, shoulder pain, and medication review Provider Name:MARY TRAORE, 10:00:00 AM, [address], [place], [address], Medications Administered Medication Instructions Date of Administration [...] * HELEN TinoDOB:1965 (5 7 yo M)Acc No.[id number]:06/12/2025 progress notes Patient: Tino Art Provider: Brodie VILLEGAS MD :1965 A ge:59 Y S ex:Male Date:06/12/2025 Address:[address] [place] [address] [address] Marc[address], [address] [facility], [id number] Check Out:05:13 PM EST Subjective: * [...] day Spirometer - Kit as directed Sutab [id number] MG Tablet 12 tablets the first dose the evening before and second dose the morning of colonoscopy Orally Twice a day tiZANidine HCl 4 MG Tablet TAKE 1 TABLET BY MOUTH THREE TIMES A DAY Trelegy Ellipta 100-62.5-25 MCG/ACT Aerosol Powder Breath Activated 1 puff Inhalation Once a day Vitamin D (Ergocalciferol) 1.25 MG (07313 UT) Capsule TAKE 1 CAPSULE BY MOUTH [...] Spirometer - Kit as directed Taking Sutab [id number] MG Tablet 12 tablets the first dose the evening before and second dose the morning of colonoscopy Orally Twice a day Taking tiZANidine HCl 4 MG Tablet TAKE 1 TABLET BY MOUTH THREE TIMES A DAY Taking Trelegy Ellipta 100-62.5-25 MCG/ACT Aerosol Powder Breath Activated 1 puff Inhalation Once a day Taking Vitamin D (Ergocalciferol) 1.25 MG (73736 UT) Capsule TAKE 1 CAPSULE BY MOUTH [...] Codes: G 2211 Complex e/m visit add [id number] BODY MASS INDEX DOCD * Follow Up: 4 Weeks, (Reason: 4 week follow up for lumbar radiculopathy, shoulder pain, and medication review) Billing Information: * Procedure Codes: G2211 Complex e/m visit add on. 3008F BODY MASS INDEX DOCD. * Electronic signature of WILLIAMS VILLEGAS MD, [id number] on 06/16/2025 at 08:27 AM EST Sign off status: Pending * Provider: Brodie VILLEGAS MD Date: 08/12/2024 Generated for Lalita castro/Florian/Oni on: 08/16/2024 08:27 AM EST
--- OUTSIDE RECORDS SUMMARY | 2025-06-13 08:15 | XMS_ITS ---
Author Organization [facility] Address [address] [address] Care Team Providers Care Transportation Department Supervisor Name Role Phone BEBETO VILLEGAS Primary Care Provider [phone] CHANTAL DALLAS Unavailable [phone] REASON FOR VISIT ALFONZO Biggs - Start [...] End Encounters Encounter Location Date Provider Diagnosis [facility] [address] [place] [address] 06/13/2025 BEBETO NELLY Plan Of Treatment Next Appt Details Provider Name:MARY TRAORE, 10:00:00 AM, [address], [place], [address], Progress Notes * Tino CERVANTESDOB:1965 ([age] yo M)Acc No.[id number]:06/13/2025 progress notes Patient: Tino Art Provider: Brodie VILLEGAS MD :1965 A ge:59 Y S ex:Male Date:06/13/2025 Address:[address] [place] [address] [address], [address], [id number] Subjective: * Chief Complaints: * [...] * Electronic signature of WILLIAMS VILLEGAS MD, [id number] on 06/16/2025 at 08:27 AM EST Sign off status: Pending * Provider: Brodie VILLEGAS MD Date: 08/13/2024 Generated for Lalita castro/Florian/Oni on: 08/16/2024 08:27 AM EST
--- OUTSIDE RECORDS SUMMARY | 2025-06-13 13:40 | XMS_ITS | Encounter Summary ---
Author Organization [employer] Address [address] [place] [address] Care Team Providers Care Photography Intern Name Role Phone Missy Mcwilliams MD Primary Care Provider [phone] Reason for Referral * Consultation (Routine) - Pending Review Specialty Diagnoses / Procedures Referred By Contac t Referred To Contact Neurosurgery Diagnoses Lumbar radiculopathy Megan Mckeon FNP [address] [place], [place] Phone: tel: fax: Referral ID Status Reason Start Date Expiration Date Visits Requested Visits Authorized [id number] Pending Review Specialty Services Required 06/15/2025 06/15/2026 1 1 * Consultation (Routine) - Pending Review Specialty Diagnoses / Procedures Referred By Contac t Referred To Contact Physical Therapy Diagnoses Chronic right shoulder pain Megan Mckeon FNP [address] [place], [place] Phone: tel: fax: Referral ID Status Reason Start Date Expiration Date Visits Requested Visits Authorized [id number] Pending Review Specialty Services Required 06/15/2025 06/15/2026 1 1 * Consultation (STAT) - Authorized Specialty Diagnoses / Procedures Referred By Contac t Referred To Contact Diagnoses Housing insecurity Megan Mckeon FNP [address] [place], [place] Phone: tel: fax: Referral ID Status Reason Start Date Expiration Date Visits Requested Visits Authorized [id number] Authorized Specialty Services Required 06/13/2025 06/13/2026 1 1 Reason for Visit * Reason Comments Back Pain Encounter Details Date Type Department Care Team (Latest Contact Info) Description 06/13/2025 1:40 PM EST Office Visit [facility] [address] [place] [address] Megan Mckeon FNP [address] [place] [address] Lumbar radiculopathy (Primary Dx); Chronic right shoulder pain; Housing insecurity Social History Tobacco Use Types [...] with others, in a hotel, in a intermediate, living outside on the street, on a [...] 1:40 PM EST documented in this encounter Progress Notes * [facility], [facility] - 06/13/2025 1:40 PM EST SUBJECTIVE: Tino Phillips is a 59 y.o. year old male who presents for evaluation of acute on chronic low back pain HPI Acute Back Pain and Lower Extremity Weakness - Chronic back pain and lumbar radiculopathy, ongoing for several years with acute worsening x 3 days. Follows with pain mngmt. Per last visit note 05/01/25 plan for possible injections and physical therapy. - Pt reports unable to tolerate PT d/t pain; requesting toradol injection today - Currently rx'd Oxycodone 10 mg b.I.d with suboptimal pain control - Tried muscle relaxants at night, reports poor sleep due to pain - Denies numbness or tingling in abdomen - Denies bowel or bladder incontinence - MRI from October 29, 2024, shows disc herniation at T12-L1 and moderate to severe stenosis at L3-S1. Right Shoulder Pain - Also c/o acute on chronic atraumatic R shoulder pain worse with overhead lifting Problem List[1] Review of Systems Constitutional: Negative for fever. HENT: Negative. Respiratory: Negative for chest tightness and shortness of breath. Cardiovascular: Negative for chest pain and palpitations. Gastrointestinal: Negative for abdominal pain. Musculoskeletal: Positive for arthralgias, back pain and gait problem. OBJECTIVE: Vitals: 06/13/25 1340 06/13/25 1429 BP: (!) 148/103 (!) 140/88 BP Location: Left arm Patient Position: Sitting BP Cuff Size: Large adult Pulse: 77 Resp: 20 Temp: 97.3 ??F (36.3 ??C) TempSrc: Oral Weight: 201 lb 9.6 oz (91.4 kg) Height: 5' 6 (1.676 m) Physical Exam Constitutional: General: He is not in acute distress. Appearance: Normal appearance. HENT: Head: Normocephalic. Right Ear: External ear normal. Left Ear: External ear normal. Eyes: Conjunctiva/sclera: Conjunctivae normal. Pulmonary: Effort: Pulmonary effort is normal. Musculoskeletal: Right shoulder: No swelling or deformity. Decreased range of motion. Left shoulder: Normal. Lumbar back: Decreased range of motion. Comments: Severely restricted ROM worse with forward flexion. + seated slump bilaterally. Decreasedstrength in lower extremities Right shoulder with + neers, + cool. Strength and sensation intact throughout upper extremities Neurological: General: No focal deficit present. Mental Status: He is alert and oriented to person, place, and time. Psychiatric: Mood and Affect: Mood normal. ASSESSMENT/PLAN Lumbar radiculopathy: - Lumbar radiculopathy with persistent pain, weakness, and functional impairment. - Discussed possible trial of gabapentin, patient declines - Pt to follow up with pain management - Per patient request will also place neurosurgery consult - Toradol dose administered in office as patient has had prior relief with this - Patient to follow up with PCP re COT - ED precautions advised Housing insecurity: - Ongoing housing insecurity impacting well-being. - Placed care management referral for housing resources. Care management to reach out by phone. Shoulder pain: - Shoulder pain with clinical suspicion for impingement syndrome. - Placed referral for physical therapy Recommended trial of ibuprofen for symptom relief. Patient verbalizes understanding and agrees to plan Diagnosis Plan 1. Lumbar radiculopathy ketorolac (Toradol) injection 30 mg Referral to Neurosurgery Referral to Neurosurgery 2. Chronic right shoulder pain Referral to Physical Therapy Referral to Physical Therapy 3. Housing insecurity Referral to Care Management This note was drafted using Ambient (AI) technology. The patient/patient's guardian has been informed and has consented to the use of this technology: Yes Follow Up: PRN Medications Ordered Prior to Encounter[2] Indonesian Translation: Provided by [facility] staff member ILIR Salvador [1] Patient Active Problem List Diagnosis Elevation of levels of lactic acid dehydrogenase (LDH) Essential (primary) hypertension Long-term current use of opiate analgesic Periumbilical hernia Severe depression (CMS/HCC) (HCC) LOPEZ (generalized anxiety disorder) [2] Current Outpatient Medications on File Prior to Visit Medication Sig Dispense Refill albuterol 108 (90 Base) MCG/ACT inhaler Inhale 2 puffs every 4 (four) hours if needed for wheezing.18 g 0 amLODIPine (Norvasc) 10 MG tablet Take 1 tablet (10 mg) by mouth Once per day. 90 tablet 1 azelastine (Astelin) 0.1 % nasal spray Administer 1 spray into each nostril 2 times daily. Use in each nostril as directed 30 mL 1 Blood Pressure kit 1 Units Once per day. 1 kit 0 Myzisstgbdc-Rkjjsjkpv-Dabang (Trelegy Ellipta) 100-62.5-25 MCG/ACT aerosol powder Inhale 1 puff Once per day. 30 each 11 lisinopril 5 MG tablet Take 1 tablet (5 mg) by mouth Once per day. 90 tablet 1 montelukast (Singulair) 10 MG tablet Take 1 tablet (10 mg) by mouth at bedtime. 90 tablet 1 naloxone (Narcan) 4 mg/0.1 mL nasal spray Administer 1 spray (4 mg) into affected nostril(s) if needed for opioid reversal. May repeat every 2-3 minutes if needed, alternating nostrils, until medicalassistance becomes available. 2 each 2 omeprazole OTC (PriLOSEC OTC) 20 MG EC tablet Take 1 tablet (20 mg) by mouth before breakfast. Do not crush, chew, or split. 90 tablet 1 oxyCODONE (Roxicodone) 10 MG immediate release tablet Take 1 tablet (10 mg) by mouth every 6 (six) hours if needed for severe pain for up to 28 days. 112 tablet 0 tiZANidine (Zanaflex) 4 MG capsule Take 1 capsule (4 mg) by mouth 3 times daily. 90 capsule 5 zolpidem (Ambien) 10 MG tablet TAKE 1 TABLET BY MOUTH AT BEDTIME NEEDED FOR SLEEP 28 tablet 1 [DISCONTINUED] zolpidem (Ambien) 10 MG tablet TAKE 1 TABLET BY MOUTH AT BEDTIME NEEDED FOR SLEEP15 tablet 1 No current facility-administered medications on file prior to visit. documented in this encounter Plan of Treatment Upcoming Encounters Date Type Department Care Team (Late st Contact Info) Description 06/19/2025 1:00 PM EST Clinical Support [facility] [address] [place] [address] Mirta Valerio RN [address] [place] [address] 06/19/2025 2:30 PM EST Clinical Support [facility] [address] [place] [address] 07/22/2025 10:15 AM EST Office Visit [facility] [address] [place] [address] Name, MD Nestor [address] [place] [address] Scheduled Referrals Name Type Priority Associated Diagnoses Orde r Schedule Referral to Care Management Outpatient Referral STAT Housing insecurity Expected: 06/13/2025 (Approximate), Expires: 06/13/2026 Referral to Physical Therapy Outpatient Referral Routine Chronic right shoulder pain Expected: 06/15/2025 (Approximate), Expires: 06/15/2026 Referral to Neurosurgery Outpatient Referral Routine Lumbar radiculopathy Expected: 06/15/2025 (Approximate), Expires: 06/15/2026 documented as of this encounter Visit Diagnoses Diagnosis Lumbar radiculopathy- Primary Thoracic or lumbosacral neuritis or radiculitis, unspecified Chronic right shoulder pain Pain in joint, shoulder region Housing insecurity documented in this encounter Administered [...] documented as of this encounter Care Teams Photography Intern Relationship Specialty Start Date End Date Missy Mcwilliams MD [address] [place] [address] PCP - General Family Medicine 03/31/25 documented as of this encounter
--- OUTSIDE RECORDS SUMMARY | 2025-06-16 08:26 | XMS_ITS | Encounter Summary ---
Author Organization [employer] Address [address] [place] [address] 7t [place] [address] Care Team Providers Care Ranch Supervisor Name Role Phone Missy Mcwilliams MD Primary Care Provider [phone] Reason for Visit * Reason Onset Date Comments Medication Question 06/09/2025 Encounter Details Date Type Department Care Team ([facility] st Contact Info) Description 06/09/2025 Telephone [facility] [address] [place] [address] Missy Mcwilliams MD [address] [place] [address] Medication Question Social History Tobacco Use Types [...] with others, in a hotel, in a halfway, living outside on the street, on a [...] to be approved. Please contact pt at [phone]. (Samoan Speaker) documented in this encounter Plan of Treatment Upcoming Encounters Date Type Department Care Team (Jason Contact Info) Description 06/19/2025 1:00 PM EST Clinical Support [facility] [address] [place] [address] Mirta Valerio, ENZO 505 [place] [address] 06/19/2025 2:30 PM EST Clinical Support [facility] [address] [place] [address] 07/22/2025 10:15 AM EST Office Visit [facility] [address] [place] [address] Name, MD Nestor [address] [place] [address] documented as of this encounter Visit Diagnoses Not on filedocumented in this encounter Additional Health Concerns Assessment Noted Time PHQ-9 Depression Total Score: 22 025 11:19 AM EDT documented as of this encounter Care Teams Ranch Supervisor Relationship Specialty Start Date End Date Missy Mcwilliams MD [address] [place] [address] PCP - General Family Medicine 03/31/25 documented as of this encounter
--- OUTSIDE RECORDS SUMMARY | 2025-06-16 08:26 | XMS_ITS | Clinical Summary ---
Author Organization [employer] Address [address] [place] [address] 7t [place] [address] Care Team Providers Care Truck Driving Name Role Phone Missy Mcwilliams MD Primary Care Provider [phone] Allergies No known active allergies Medications * [...] organization. Date Type Department Care Team Description 06/15/2025 Orders Only [facility] External Provider, [facility] 06/13/2025 1:40 PM EST Office Visit [facility] [address] [place] [address] [facility] Lumbar radiculopathy (Primary Dx); Chronic right shoulder pain; Housing insecurity 06/13/2025 Travel 06/10/2025 Telephone [facility] [address] [place] [address] Missy Mcwilliams MD call back 06/09/2025 Telephone [facility] [address] [place] [address] Missy Mcwilliams MD Medication Question 06/09/[address] [address] Missy Mcwilliams MD Med Refill 06/04/[address] [address] Missy Mcwilliams MD Prior Authorization 06/02/2025 11:00 AM EDT Office Visit [facility] [address] [place] [address] Missy Mcwilliams MD Long-term current use of opiate analgesic (Primary Dx); Lumbar radiculopathy; Periumbilical hernia 06/02/2025 Travel 05/30/2025 Telephone [facility] [address] [place] [address] Missy Mcwilliams MD Chart Prep 05/29/[address] [address] Missy Mcwilliams MD Med Refill 05/27/2025 Telephone [facility] [address] [place] [address] Missy Mcwilliams MD Change PCP 05/22/[address] [address] Missy Mcwilliams MD Med Refill 05/22/[address] [address] Missy Mcwilliams MD Med Refill 05/22/2025 Refill [facility] [address] [place] [address] Missy Mcwilliams MD 05/21/2025 Refill [facility] [address] [place] [address] Missy Mcwilliams MD 05/21/2025 Refill [facility] [address] [place] [address] Missy Mcwilliams MD Lumbar radiculopathy 05/15/2025 3:00 PM EDT Clinical Support [facility] [address] [place] [address] Mirta Valerio, ENZO Lumbar radiculopathy (Primary Dx); Long-term current use of opiate analgesic 05/15/2025 Travel 05/14/2025 Telephone [facility] [address] [place], [place] [phone] Missy Mcwilliams MD Referral 05/09/2025 Orders Only [facility] [address] [place], [place] [phone] Luiza Resendiz MD 05/09/2025 Refill [facility] [address] [place], [place] [phone] Missy Mcwilliams MD Lumbar radiculopathy (Primary Dx) 05/05/2025 Telephone [facility] [address] [place], [place] [phone] Missy Mcwilliams MD Prior Authorization 05/05/2025 Telephone [facility] [address] [place], [place] [phone] Missy Mcwilliams MD Med Refill 04/28/2025 Refill [facility] [address] [place], [place] [phone] Missy Mcwilliams MD 04/15/2025 Telephone [facility] [address] [place], [place] [phone] Mirta Valerio, ENZO 04/15/2025 Telephone [facility] [address] [place], [place] [phone] Mirta Valerio, RN 04/14/2025 Telephone [facility] [address] [place], [place] [phone] Mirta Valerio, RN 04/14/2025 Telephone [facility] [address] [place], [place] [phone] Mirta Valerio, RN 04/11/2025 Telephone [facility] [address] [place] [address] Mirta Valerio, hedge fund accountant Question 04/10/2025 Telephone [facility] [address] [place] [address] Missy Mcwilliams MD Medication Question 04/02/2025 Telephone [facility] [address] [place] [address] Missy Mcwilliams MD FYI 04/01/2025 Telephone [facility] [address] [place] [address] Missy Mcwilliams MD 03/31/2025 Telephone [facility] [address] [place] [address] Missy Mcwilliams MD Prior Authorization 03/28/2025 1:15 PM EDT Office Visit [facility] [address] [place] [address] Missy Mcwilliams MD Lumbar radiculopathy (Primary Dx); Dietary counseling; Exercise counseling; Class 1 obesity with serious comorbidity and body mass index (BMI) of 31.0 to 31.9 in adult, unspecified obesity type; Left wrist pain; Cervical pain (neck); Colon cancer screening; Prostate cancer screening; Primary hypertension; Encounter for health-related screening 03/28/2025 Travel 03/20/2025 Patient Outreach [address] [address] Navarro Ariza MD Pre-visit Planning (Pre visit planning LVM ) 03/19/2025 Telephone [facility] [address] [place] [address] Missy Mcwilliams MD chart prep from Last [...] with others, in a hotel, in a mcfp, living outside on the street, on a [...] Upcoming Encounters Date Type Department Care Team ([facility] st Contact Info) Description 06/19/2025 1:00 PM EST Clinical Support [facility] [address] [place] [address] Mirta Valerio, RN 505 [place] [address] 06/19/2025 2:30 PM EST Clinical Support [facility] 505 [place] [address] 07/22/2025 10:15 AM EST Office Visit [facility] [address] [place] [address] Name, MD Nestor [address] [place] [address] Health Maintenance Due Date Last Done Comments [...] tponed from 10/09/2017 (Patient Refused) Tobacco Screening 06/15/2026 06/15/2025 RSV Patients and Patients Aged 60 years [...] Procedure Name Priority Date/Time Associated Diagnosis Comments XR LUMBAR SPINE 2-3 VIEWS Routine 06/15/2025 4:05 PM EST XR HIP RIGHT WITH PELVIS 1 VIEW Routine 06/15/2025 4:03 PM EST POCT JAZLYN-14 URINE DRUG SCREEN Routine 05/15/2025 3:13 PM EDT Lumbar radiculopathy from Last 3 Months Results * XR Lumbar Spine 2-3 Views (06/15/2025 4:05 PM EST) Anatomical Region Laterality Modality Spine, L-spine Radiographic Jessica ging 06/15/2025 4:05 PM EST Narrative 06/15/2025 4:06 PM EST [address] [address] XRay Report Signed Patient: Tino Phillips MR#: [id number] : 1965 Acct:[id number] Age/Sex: 59 / M ADM Date: 06/15/25 Loc: HO.ED Attending Dr: Ordering Physician: Colton Solis Date of Service: 06/15/25 Procedure(s): XR lumbar spine 2-3V Accession Number(s): [id number] cc: Colton Solis; Missy Mcwilliams MD Reason for Exam: back pain CLINICAL HISTORY: back pain 3 views lumbar spine Comparison: None Findings: No fractures or dislocations. There is slight levoconvex curvature of the mid lumbar spine. There is diffuse moderate lumbar vertebral body spurring, more significant L1-L4. There is some disc space narrowing, most significant at L2-3 level. There is bilateral facet arthropathy, more significant L4-S1.. Impression: 1. Lumbar degenerative changes as described above. This document has been electronically signed by: Romeo Sierra MD on 06/15/2025 16:05:00 Dictated By: Romeo Sierra MD Signed By: <Electronically signed by Romeo Sierra MD in OV> 06/15/25 160 DD/ 160 TD/TT: 06/15/251604 Java Lead Developer: Procedure Note Donotuseinterpreter, Image - 06/15/2025 [place] [address] XRay Report Signed Patient: Renu Phillips#: [id number] : 1965Acct:[id number] Age/Sex: 59 / MADM Date: 06/15/25 Loc: HO.ED Attending Dr: Ordering Physician: Colton Solsi Date of Service: 06/15/25 Procedure(s): XR lumbar spine 2-3V Accession Number(s): [id number] cc: Colton Solis; Missy Mcwilliams MD Reason for Exam: back pain CLINICAL HISTORY: back pain 3 views lumbar spine Comparison: None Findings: No fractures or dislocations. There is slight levoconvex curvature of the mid lumbar spine. There is diffuse moderate lumbar vertebral body spurring, more significant L1-L4. There is some disc space narrowing, most significant at L2-3 level. There is bilateral facet arthropathy, more significant L4-S1.. Impression: 1. Lumbar degenerative changes as described above. This document has been electronically signed by: Romeo Sierra MD on 06/15/2025 16:05:00 Dictated By: Romeo Sierra MD Signed By: <Electronically signed by Romeo Sierra MD in OV> 06/15/25 160 DD/ 160 TD/TT: 06/15/251604 Java Lead Developer: [facility] External Provider IMG XR PROCEDURES Edited Result - Final * XR Hip right with Pelvis 1 view (06/15/2025 4:03 PM EST) Anatomical Region Laterality Modality Lower Extremities, Hip Bilateral Radiograp hic Imaging 06/15/2025 4:03 PM EST Narrative 06/15/2025 4:05 PM EST [address] [address] XRay Report Signed Patient: Tino Phillips MR#: [id number] : 1965 Acct:[id number] Age/Sex: 59 / M ADM Date: 06/15/25 Loc: HO.ED Attending Dr: Ordering Physician: Colton Solis Date of Service: 06/15/25 Procedure(s): XR hip RT w PEL1V Accession Number(s): [id number] cc: Colton Solis; Missy Mcwilliams MD Reason for Exam: pain. fracture? CLINICAL HISTORY: pain. fracture? 2 views right hip with AP pelvis Comparison: None Findings: No fractures or dislocations. No significant hip arthritic change. Lower lumbar degenerative changes are present. No radiopaque foreign body. Impression: 1. Unremarkable right hip This document has been electronically signed by: Romeo Sierra MD on 06/15/2025 16:03:53 Dictated By: Romeo Sierra MD Signed By: <Electronically signed by Romeo Sierra MD in OV> 06/15/25 1604 DD/ 1603 TD/TT: 06/15/25 1603 Java Lead Developer: Procedure Note Donotuseinterpreter, Image - 06/15/[address] [address] XRay Report Signed Patient: Tino PhillipsMR#: [id number] : 1965Acct:[id number] Age/Sex: 59 / MADM Date: 06/15/25 Loc: HO.ED Attending Dr: Ordering Physician: Colton Solis Date of Service: 06/15/25 Procedure(s): XR hip RT w PEL1V Accession Number(s): [id number] cc: Colton Solis; Missy Mcwilliams MD Reason for Exam: pain. fracture? CLINICAL HISTORY: pain. fracture? 2 views right hip with AP pelvis Comparison: None Findings: No fractures or dislocations. No significant hip arthritic change. Lower lumbar degenerative changes are present. No radiopaque foreign body. Impression: 1. Unremarkable right hip This document has been electronically signed by: Romeo Sierar MD on 06/15/2025 16:03:53 Dictated By: Romeo Sierra MD Signed By: <Electronically signed by Romeo Sierra MD in OV> 06/15/25 1604 DD/ 1603 TD/TT: 06/15/25 1603 Java Lead Developer: [facility] External Provider IMG XR PROCEDURES Edited Result - Final * (ABNORMAL) POCT JAZLYN-14 Urine Drug Screen [...] PM EDT . Internal Pass Control Lot# [id number] Exp: 06-06-26 Missy Mcwilliams MD POINT OF CARE TEST ENTER/EDIT ORDERABLES Final Result from Last 3 Months Insurance [facility] STANDARD Care Teams Truck Driving Relationship Specialty Start Date End Date Missy Mcwilliams MD [address] [place] [phone] PCP - General Family Medicine 03/31/25
--- OUTSIDE RECORDS SUMMARY | 2025-06-16 08:26 | XMS_ITS | Encounter Summary ---
Author Organization [employer] Address [address] [place] [address] [place] [address] Care Team Providers Care Editorial Clerk Name Role Phone Missy Mcwilliams MD Primary Care Provider [phone] Reason for Visit * Reason Onset Date Comments Med Refill 05/09/2025 Encounter Details Date Type Department Care Team (Late st Contact Info) Description 05/09/2025 Refill [facility] [address] [place] [address] Missy Mcwilliams MD [address] [place] [address] Lumbar radiculopathy (Primary Dx) Social History Tobacco [...] 1:09 PM EDT TC to pt, initial HEAT TREATER appointment scheduled for 05/15/25 @3pm. * Telephone Encounter - Nuris Peña - 05/09/2025 12:55 PM EDT TC from pt requesting medication refill. Medications needing refill : oxyCODONE (Roxicodone) 5 MG immediate release tablet To be sent to: [facility]/pharmacy #[id number] - [facility] [address] [facility] documented in this encounter Plan of Treatment Upcoming Encounters Date Type Department Care Team (Late st Contact Info) Description 06/19/2025 1:00 PM EST Clinical Support [facility] [address] [place] [address] Mirta Valerio, ENZO [address] [place] [address] 06/19/2025 2:30 PM EST Clinical Support [facility] [address] [place] [address] 07/22/2025 10:15 AM EST Office Visit [facility] [address] [place] [address] Name, MD Nestor [address] [place] [address] documented as of this encounter Visit Diagnoses Diagnosis Lumbar radiculopathy- Primary Thoracic or lumbosacral neuritis or radiculitis, unspecified documented in this encounter Care Teams Editorial Clerk Relationship Specialty Start Date End Date Missy Mcwilliams MD [address] [place] [address] PCP - General Family Medicine 03/31/25 documented as of this encounter
--- OUTSIDE RECORDS SUMMARY | 2025-06-16 08:26 | XMS_ITS | Encounter Summary ---
Author Organization [employer] Address [address] [place] [address] 7 [place] [address] Care Team Providers Care Nursing Information Systems Coordinator Name Role Phone Missy Mcwilliams MD Primary Care Provider [phone] Encounter Details Date Type Department Care Team ([facility] Contact Info) Description 05/09/2025 Orders Only [facility] [address] [place] [address] Luiza Resendiz MD [address] [place] [address] Social History Tobacco Use Types Packs/Day Years [...] Upcoming Encounters Date Type Department Care Team ([facility] Contact Info) Description 06/19/2025 1:00 PM EST Clinical Support [facility] [address] [place] [address] Mirta Valerio RN [address] [place] [address] 06/19/2025 2:30 PM EST Clinical Support [facility] [address] [place] [address] 07/22/2025 10:15 AM EST Office Visit [facility] [address] [place] [address] Name, MD Nestor [address] [place] [address] documented as of this encounter Visit Diagnoses Not on filedocumented in this encounter Care Teams Nursing Information Systems Coordinator Relationship Specialty Start Date End Date Missy Mcwilliams MD [address] [place] [address] PCP - General Family Medicine 03/31/25 documented as of this encounter
--- OUTSIDE RECORDS SUMMARY | 2025-06-16 08:26 | XMS_ITS | Encounter Summary ---
Author Organization [employer] Address [address] [facility] 7t [place] [address] Care Team Providers Care Machine Gun Mechanic Name Role Phone Missy Mcwilliams MD Primary Care Provider [phone] Encounter Details Date Type Department Care Team [...] with others, in a hotel, in a chcf, living outside on the street, on a [...] 06/19/2025 1:00 PM EST Clinical Support [facility] 505 [place] [address] Mirta Valerio RN [address] [place] [address] 06/19/2025 2:30 PM EST Clinical Support [facility] 505 [place] [address] 07/22/2025 10:15 AM EST Office Visit [facility] 230 [place] [address] NameNestor MD [address] [place] [address] documented as of this encounter Visit Diagnoses Not on filedocumented in this encounter Additional Health Concerns Assessment Noted Time PHQ-9 Depression Total Score: 22 025 11:19 AM EDT documented as of this encounter Care Teams Machine Gun Mechanic Relationship Specialty Start Date End Date Missy Mcwilliams MD [address] [place] [address] PCP - General Family Medicine 03/31/25 documented as of this encounter
--- OUTSIDE RECORDS SUMMARY | 2025-06-16 08:26 | XMS_ITS | Encounter Summary ---
Author Organization [employer] Address [address] [place] [address] 7t [place] [address] Care Team Providers Care Trial Management Associate Name Role Phone Missy Mcwilliams MD Primary Care Provider [phone] Reason for Visit * Reason Onset Date Comments call back 06/10/2025 Encounter Details Date Type Department Care Team ([facility] st Contact Info) Description 06/10/2025 Telephone [facility] [address] [place] [address] Missy Mcwilliams MD [address] [place] [address] call back Social History Tobacco Use Types [...] with others, in a hotel, in a care home, living outside on the street, on a [...] requesting an call back Contact pt at [phone] documented in this encounter Plan of Treatment Upcoming Encounters Date Type Department Care Team (Late st Contact Info) Description 06/19/2025 1:00 PM EST Clinical Support [facility] [address] [place] [address] Mirta Valerio, ENZO [address] [place] [address] 06/19/2025 2:30 PM EST Clinical Support [facility] [address] [place] [address] 07/22/2025 10:15 AM EST Office Visit [facility] [address] [place] [address] Name, MD Nestor [address] [place] [address] documented as of this encounter Visit Diagnoses Not on filedocumented in this encounter Additional Health Concerns Assessment Noted Time PHQ-9 Depression Total Score: 22 025 11:19 AM EDT documented as of this encounter Care Teams Trial Management Associate Relationship Specialty Start Date End Date Missy Mcwilliams MD [address] [place] [address] PCP - General Family Medicine 03/31/25 documented as of this encounter
--- OUTSIDE RECORDS SUMMARY | 2025-06-16 08:26 | XMS_ITS | Encounter Summary ---
Author Organization [employer] Address [address] [place] [address] 7 [place] [address] Care Team Providers Care Barbed Wire Machine Operator Name Role Phone Missy Mcwilliams MD Primary Care Provider [phone] Reason for Visit * Reason Onset Date Comments Med Refill 06/09/2025 Encounter Details Date Type Department Care Team ([facility] st Contact Info) Description 06/09/2025 Telephone [facility] [address] [place] [address] Missy Mcwilliams MD [address] [place] [address] Med Refill Social History Tobacco Use Types [...] Ordonez LPN - 06/09/2025 11:27 AM EST GROUNDSMAN checked on 06/09/25 medication last sold on 06/02/25 #15 to soon for refill. * Telephone Encounter - Franki Garcia - 06/09/2025 11:23 AM EST TC from pt requesting medication refill. Medications needing refill : zolpidem (Ambien) 10 MG tablet To be sent to: [facility]/pharmacy #[id number] [place], [place] - [address] [facility] documented in this encounter Plan of Treatment Upcoming Encounters Date Type Department Care Team ([facility] st Contact Info) Description 06/19/2025 1:00 PM EST Clinical Support [facility] [address] [place] [address] Mirta Valerio, RN [address] [place] [address] 06/19/2025 2:30 PM EST Clinical Support [facility] [address] [place] [address] 07/22/2025 10:15 AM EST Office Visit [facility] [address] [place] [address] Name, MD Nestor [address] [place] [address] documented as of this encounter Visit Diagnoses Not on filedocumented in this encounter Additional Health Concerns Assessment Noted Time PHQ-9 Depression Total Score: 22 025 11:19 AM EDT documented as of this encounter Care Teams Barbed Wire Machine Operator Relationship Specialty Start Date End Date Missy Mcwilliams MD [address] [place] [address] PCP - General Family Medicine 03/31/25 documented as of this encounter
--- OUTSIDE RECORDS SUMMARY | 2025-06-16 08:29 | XMS_ITS | Encounter Summary ---
Author Organization [employer] Address [address] [place] [address] [place] [address] Care Team Providers Care Burial Needs Salesperson Name Role Phone Missy Mcwilliams MD Primary Care Provider [phone] Reason for Visit * Reason Onset Date Comments New Patient Request 01/31/2025 Encounter Details Date Type Department Care Team (Late st Contact Info) Description 01/31/2025 Telephone [facility] 230 [place], [place] [phone] Navarro Ariza MD [address] [place], [place] [phone] New Patient Request Social History Tobacco Use [...] EDT Outgoing call to pt to book [place] [place] appt with [facility] office. No answer. Left message. * Telephone Encounter - Corrie Alejandra - 01/31/2025 11:14 AM EDT TC from caller requesting NEW PATIENT visit . DX : N/A Medical Concern: Back Pain (Fall) Insurance name : [employer] Location : Sooner available Demographic information updated documented in this encounter Plan of Treatment Upcoming Encounters Date Type Department Care Team ([facility] st Contact Info) Description 06/19/2025 1:00 PM EST Clinical Support [facility] [address] [place] [address] Mirta Valerio RN 505 [place] [address] 06/19/2025 2:30 PM EST Clinical Support [facility] 505 [place] [address] 07/22/2025 10:15 AM EST Office Visit [facility] [address] [place] [address] Name, MD Nestor [address] [place] [address] documented as of this encounter Visit Diagnoses Not on filedocumented in this encounter Care Teams Burial Needs Salesperson Relationship Specialty Start Date End Date Missy Mcwilliams MD 505 [place] [address] PCP - General Family Medicine 03/31/25 documented as of this encounter
--- OUTSIDE RECORDS SUMMARY | 2025-06-16 08:29 | XMS_ITS | Patient Health Record ---
Author Organization [facility] C Address [address] [place] [address] Care Team Providers Care Drug Counselor Name Role Phone BEBETO VILLEGAS Primary Care Provider [phone] CHANTAL DALLAS Unavailable [phone] HIRAM BUCK Unavailable [phone] ALIE SCHULTE Unavailable [phone] GRACE HERRERA Unavailable [phone] NATHANIEL PADILLA Unavailable Unavailable IRENE GUALLPA Unavailable [phone] YOLANDACALE Unavailable [phone] DANNY HEREDIA Unavailable [phone] JANET SHIPMAN Unavailable [phone] CEASAR LOCO Unavailable [phone] ERIN CONLEY Unavailable [phone] RODOLFO MEZA Unavailable [phone] BHARAT DAO Unavailable [phone] FABIEN JOHNSON Unavailable [phone] MAMMPeyman JOSE Unavailable [phone] MARY TRAORE Unavailable [phone] SERANTHONY SYLVESTER Unavailable [phone] JACEK HEATON Unavailable [phone] CAROLANN DALLAS Unavailable [phone] DICKSON PATTON Unavailable [phone] Allergies No Known Allergies Results Component Value Reference Range Flag Notes CT Chest w* Reviewed date:10/03/2024 11:59:06 AM Interpretation: [...] effusion. No suspicious pulmonary mass or consolidation. CorDx Flu A/B & COVID-19* Reviewed date:12/02/2024 04:13:40 PM Interpretation: Performing Lab: Notes/Report: Urinalysis by dipstick W/O m icroscopy* [id number] Reviewed date:09/13/2024 03:01:46 PM Interpretation: Performing Lab: Notes/Report: Color yellow Clarity clear Blood - Negative - Bilirubin - Negative - Urobilinogen 0.2 Negative - Specific [place] 1.015 Nitrite - Negative - Protein 15 [...] Spine, 3 View(s) COMPARISON: 08/02/2024. FINDINGS: Alignment: Iuso-gs-uelywvwb convex right thoracolumbar scoliosis. Stable mild grade [...] L1. There has been no interval change NOW COVID-19* Reviewed date:10/21/2024 12:19:35 PM Interpretation: [...] performed on the ID NOW instrument from [employer]. The ID NOW COVID- duration of the [...] date:10/21/2024 12:19:35 PM Interpretation: Performing Lab: Notes/Report: Influenza Swab* 81401 x2 Padmini t code 6335 Reviewed date:10/21/2024 12:19:35 PM Interpretation: Performing Lab: Notes/Report: INFLUENZA A Negative Internal QC Passed Negative Negative Internal QC Passed INFLUENZA B Negative Internal QC Passed Negative Negative Internal QC Passed PCR Respiratory Panel*58 Reviewed date:10/21/2024 12:19:35 PM Interpretation: Performing Lab: Notes/Report: Virokey Influenza A PCR* Negative Negativ e\.br\(Ref er to value/result column\.br\for results) on the [employer] SX101, as well as RT-PCR run on the Sentosa SA201 insturment from [employer]. The ViroKey Influenza A RT PCR has not been FDA cleared or approved; it has been see the Value/Result column for your actual result. isintended for the qualitative detection of RNA from Influenza A/B in nasopharyngeal and authorized by the FDA under an EUA for use by authorized high complexity laboratories. This test Note: The [email or web address] Influenza A RT PCR assay is assesed using the [email or web address] SX Virus Nucleic Acid Kit Note: Preferable [...] in nasopharyngeal and oropharygeal swabs from individuals [facility], as well as RT-PCR run on the Sentosa SA201 insturment from [employer]. The Note: The [email or web address] RSV RT PCR assay is assesed using the [email or web address] SX Virus Nucleic Acid Kit on the Note: Preferable reference range is Negative, reference range does not indicate your result. Please Virokey Influenza B PCR* Negative Negative on the [employer] SX101, as well as RT-PCR run on the [employer] SA201 insturment from [employer] see the Value/Result column for your actual result. Note: The ViroKey Influenza B RT PCR assay is assesed using the [email or web address] SX Virus Nucleic Acid Kit oropharygeal swabs [...] high complexity laboratories. This test Note: The [email or web address] SARS-CoV-2 RT PCR assay is assesed using the [email or web address] SX Virus Nucleic Acid Kit swabs from individuals who are suspected of COVID-19 by their healther care provider. The [email or web address] diagnosis of COVIC-19 under Section 564(b)(1) of Act, 21 U.S.C SS 360bb-3(b)(1), unless the justifying the authorization of emergency use of in vitro diagnostic tests for detection and/or on the Santosa SX101, as well as RT-PCR run on the Sentosa SA201 insturment from [employer] authorization is terminated or revoked. Diagnostics. The Rocket[employer] SARS-CoV-2 RT PCR has not been FDA [...] hypertrophy and facet arthropathy. There is associated cbjo-hc-jauvhyav left and mild right foraminal stenosis. There [...] similar to the previous MRI. Stenosis is fuvnhavn-vx-manpgq at L3-4 and L5-S1, only clmf-sw-ulkvtkat at the other levels. Nerve root impingement at L3-4, L5-S1. There could be impingement at L1-2, L2-3 and L4-5. Respiratory Panel*58 Reviewed date:12/15/2024 09:20:43 AM Interpretation: Performing Lab: Notes/Report: Virokey Influenza A PCR* Negative Negativ e\.br\(Ref er to value/result column\.br\for results) isintended for the qualitative detection of RNA from Influenza A/B in nasopharyngeal and Note: The ViroKey Influenza A RT PCR assay is assesed using the [email or web address] SX Virus Nucleic Acid Kit oropharygeal swabs from individuals who are suspected of Influenza A by their healther care on the Santosa SX101, as well as [...] Negative Negative\.br\(Ref er to value/result column\.br\for results) Santosa SX101, as well as RT-PCR run on the Sentosa SA201 insturment from [employer]. The Note: Preferable reference range is Negative, reference range does not indicate your result. Please qualitative detection of RNA from RSV in nasopharyngeal and oropharygeal swabs from individuals who are suspected of RSV by their healther care provider. ViroKey Influenza A/B RT PCR has not been FDA cleared or approved; it has been authorized by the Note: The [employer] RSV RT PCR assay is assesed using the [email or web address] SX Virus Nucleic Acid Kit on the [...] B by their healther care Note: The [employer]Less[employer] Influenza B RT PCR assay is assesed using the [email or web address] SX Virus Nucleic Acid Kit authorized by [...] run on the Sentosa SA201 insturment from [facility] diagnosis of COVIC-19 under Section 564(b)(1) of [...] SARS-CoV-2 in nasopharyngeal and oropharygeal Note: The [employer] SARS-CoV-2 RT PCR assay is assesed using the [email or web address] SX Virus Nucleic Acid Kit Note: Preferable [...] date:12/12/2024 09:11:34 AM Interpretation: Performing Lab: Notes/Report: [facility] ACCREDITED ECHOCARDIOGRAPHY LABORATORY PERFORMING LABORATORY: [facility] Jesse INDICATION: LE edema Date of Service: 12.06.2024 Date of Prior: 10.13.2020 BP: 118.64 GENDER: M AGE: 59 HT:5'7'' WT:193 HR: 80 BSA: 1.99m2 Estimator Binding:TM PROCEDURE DESCRIPTION: A complete 2D, M-Mode, Doppler [...] Compared to prior study: no prior study * Reviewed date:12/31/2024 06:19:50 AM Interpretation: Performing [...] 0 RR_NumBeats 0 RR_NumNormalBeats 0 RR_SystolicBP 0 X-ray Hand 2V, left* Reviewed date:07/05/2024 12:32:52 [...] Soft tissues: Unremarkable Impression: Normal exam NOW Strep A 2 6351 Reviewed date:08/19/2024 06:40:02 PM Interpretation: Performing Lab: Notes/Report: PCR Respiratory Panel*58 Reviewed date:08/20/2024 03:35:15 PM Interpretation: Performing Lab: Notes/Report: Virokey Influenza A PCR* Negative Negativ e\.br\(Ref er to value/result column\.br\for results) Note: Preferable reference range is Negative, reference range does not indicate your result. Please Note: The ViroKey Influenza A RT PCR assay is assesed using the [email or web address] SX Virus Nucleic Acid Kit isintended for the qualitative detection of RNA from Influenza A/B in nasopharyngeal and authorized by the FDA under an EUA for use by authorized high complexity laboratories. This test provider. Diagnostics. The [employer]LessonFace Influenza A RT PCR has not been FDA cleared or approved; it has been oropharygeal swabs from individuals who are suspected of Influenza A by their healther care see the Value/Result column for your actual result. on the [employer] SX101, as well as RT-PCR run on the [employer] SA201 insturment from [employer] VirokeDatalink Respiratory Syncytial Virus (RSV)* Negative Negative\.br\(Ref er to value/result column\.br\for results) ViroKeDatalink Influenza A/B RT PCR has not been FDA cleared or approved; it has been authorized by the [employer], as well as RT-PCR run on the [employer] SA201 insturment from [employer]. The who are suspected of RSV by their healther care provider. Note: The [email or web address] RSV RT PCR assay is assesed using the [email or web address] SX Virus Nucleic Acid Kit on the [...] Influenza A/B in nasopharyngeal and Diagnostics. The [email or web address] Influenza A RT PCR has not been FDA cleared or approved; it has been on the [employer] SX101, as well as RT-PCR run on the [employer] SA201 insturment from [employer] provider. oropharygeal swabs from individuals who are suspected of Influenza B by their healther care Note: The [email or web address] Influenza B RT PCR assay is assesed using the [email or web address] SX Virus Nucleic Acid Kit VirLessonFace SARS-CoV-2 RT PCR Positive Negati ve\.br\(Ref er to value/result column\.br\for results) CT Values POS justifying the authorization of emergency use of in vitro diagnostic tests for detection and/or Note: The [email or web address] SARS-CoV-2 RT PCR assay is assesed using the [email or web address] SX Virus Nucleic Acid Kit SARS-CoV-2 RT PCR is only authorized for the duration of the declaration that circumstances exists on the Santosa SX101, as well as RT-PCR run on the Sentosa SA201 insturment from [employer] swabs from individuals who are suspected of COVID-19 by their healther care provider. The [email or web address] isintended for the qualitative detection of RNA from SARS-CoV-2 in nasopharyngeal and oropharygeal see the Value/Result column for your actual result. Note: Preferable reference range is Negative, reference range does not indicate your result. Please Diagnostics. The [employer] SARS-CoV-2 RT PCR has not been FDA cleared or approved; it has been authorization is terminated or revoked. diagnosis of COVIC-19 under Section 564(b)(1) of Act, 21 U.S.C SS 360bb-3(b)(1), unless the authorized by the FDA under an EUA for use by authorized high complexity laboratories. This test Upper Respiratory Culture (T hroat Culture) [facility] [id number] Reviewed date:08/23/2024 07:20:44 PM Interpretation: Performing Lab: Notes/Report: Source? : Location Specimen Obtained from Patient THROAT Upper Respiratory Culture Final report Result 1 Comment Routine respir atory jordan Influenza A/B & COVID 19 Ag* 54 Reviewed date:08/19/2024 06:40:02 PM Interpretation: Performing Lab: Notes/Report: CorDx Flu A/B & COVID-19* Reviewed date:12/23/2024 [...] None. IMPRESSION: No acute pulmonary disease X-ray Foot 3V, bilateral* Reviewed date:09/13/2024 04:51:01 [...] at both ankles, greater on the right. Reason For Referral Diagnosis 1 Back pain (M54.9) Referral Organization [facility] Referring Provider First Name BEBETO Referring Provider Last Name NELLY Referring Provider [facility] Internal edicine Referred Provider Specialty UrgentCare [facility] Referral Priority Routine Diagnosis 1 Left hand pain (M79. 642) Referral Organization [facility] Referring Provider First Name BEBETO Referring Provider Last Name NELLY Referring Provider [facility] edicine Referred Provider Specialty Orthopedics\ - Referral Priority Routine Diagnosis 1 Injury due to fall, initial encounter (W19.XXXA) Referral Organization [facility] Referring Provider First Name BEBETO Referring Provider Last Name NELLY Referring Provider [facility] edicine Referred Provider Specialty UrgentCare [facility] Referral Priority Routine Diagnosis 1 Pain in right foot ( M79.671) Diagnosis 2 Pain in left foot (M 79.672) Referral Organization [facility] Referring Provider First Name BEBETO Referring Provider Last Name NELLY Referring Provider [facility] edicine Referred Organization [facility] Referred Provider GRACE HERRERA Referred Address [address],[place], [place],[address], Referred Provider Specialty Podiatry Referral Priority Routine Diagnosis 1 Accidental fall, ini tial encounter (W19.XXXA) Referral Organization [facility] Referring Provider First Name BEBETO Referring Provider Last Name NELLY Referring Provider Speciality Internal edicine Referred Provider Specialty UrgentCare [facility] Referral Priority Routine Diagnosis 1 Scoliosis of thoraco lumbar spine, unspecified scoliosis type (M41.9) Referral Organization [facility] Referring Provider First Name BEBETO Referring Provider Last Name NELLY Referring Provider Speciality Internal edicine Referred Organization [facility] Referred Provider JANET SHIPMAN [place]erred Address [address] [place],[address], Referred Provider Specialty Orthopedic S urgery Referral Priority Routine Diagnosis 1 Chest pain, unspecif ied type (R07.9) Referral Organization [facility] Referring Provider First Name BEBETO Referring Provider Last Name NELLY Referring Provider [facility] Internal edicine Referred Organization [facility] Referred Provider MARY TRAORE Referred Address [address] [place], [place],[address], Referred Provider Specialty Cardiology Referral Priority Routine Reason CT CHEST W* Diagnosis 1 Elevated LDH (R74.02 ) Referring Provider First Name Maykel Referring Provider Last Name Ilana Referring Provider Speciality Hematology /Oncology Referred Organization [facility] Referred Provider LUÍS MELÉNDEZ Referred Address [address] [place], [place],[address],[place] Referred Provider Specialty Diagnostic R adiology Procedure 1 CT THORAX W/DYE (712 60) General Notes [facility] 10/02 11:22:49 AM >APPROVED PER NOTES IN APPT 09/19/2024 Referral Priority Routine Reason CT ABD & PELV W* Diagnosis 1 Elevated LDH (R74.02 ) Referring Provider First Name Maykel Referring Provider Last Name Ilana Referring Provider Speciality Hematology /Oncology Referred Organization [facility] Referred Provider LUÍS MELÉNDEZ Referred Address [address] [place],[address], Referred Provider Specialty Diagnostic R adiology General Notes [facility] 10/02 11:35:38 AM >APPROVED PER NOTES ON APPT 09/19/24 Referral Priority Routine Reason AD REFLUX Diagnosis 1 Lower extremity mario a (R60.0) Referral Organization [facility] Referring Provider First Name MARY Referring Provider Last Name LEÓN Referring Provider Speciality Cardiology Referred Organization [facility] Referred Provider MARY TRAORE Referred Address [address],[place], [place],[address], Referred Provider Specialty Cardiology Procedure 1 LOWER EXTREMITY STUD Y (96170) Procedure 2 EXTREMITY STUDY (514 50) General Notes Kinza Chicas 11/2024 03:32:44 PM >IVA,CALLREF#[id number] S 10/08/2024 3:20PM (JOSE S) Referral Priority Routine Diagnosis 1 Lumbar spondylosis ( M47.816) Referral Organization [facility] Referring Provider First Name BEBETO Referring Provider Last Name NELLY Referring Provider Speciality Internal M edicine Referred Provider Specialty Pain Managem ent\-MD Susana Referral Priority Routine Reason MRI L SPINE W/O Diagnosis 1 Lumbar radiculopathy (M54.16) Referral Organization [facility] Referring Provider First Name RODOLFO Referring Provider Last Name SUSNAA Referring Provider Speciality Pain Medic ine Referred Organization [facility] Referred Provider LUÍS MELÉNDEZ Referred Address [address],[place], [place],[address], Referred Provider Specialty Diagnostic R adiology Procedure 1 MRI LUMBAR SPINE W/O DYE (44908) Referral Priority Routine Reason MRI T SPINE W/O Diagnosis 1 Thoracic radiculopat hy (M54.14) Referral Organization [facility] Referring Provider First Name RODOLFO Referring Provider Last Name SUSANA Referring Provider Speciality Pain Medic ine Referred Organization [facility] Referred Provider LUÍS MELÉNDEZ Referred Address [address] [place],[address],[place] Referred Provider Specialty Diagnostic R adiology Procedure 1 MRI THORACIC SPINE W /O DYE (52572) Referral Priority Routine Diagnosis 1 Lower extremity mario a (R60.0) Referral Organization [facility] Referring Provider First Name MARY Referring Provider Last Name LEÓN Referring Provider Speciality Cardiology Referred Provider Specialty Cardiovascul ar \\- Jarek Heaton MD Referral Priority Routine Reason ECHO Diagnosis 1 Lower extremity mario a (R60.0) Referral Organization [facility] Referring Provider First Name MARY Referring Provider Last Name LEÓN Referring Provider Speciality Cardiology Referred Organization [facility] Referred Provider MARY TRAORE [place]erred Address [address] [place], [place],[address], Referred Provider Specialty Cardiology Procedure 1 TTE W/DOPPLER, COMPL ETE (77530) General Notes Leonidas Potter 2024 10:23:56 AM >IVA,REF#[id number] Shen Culver Referral Priority Routine Diagnosis 1 Lower extremity mario a (R60.0) Referral Organization [facility] Referring Provider First Name MARY Referring Provider Last Name LEÓN Referring Provider Speciality Cardiology Referred Provider Specialty Cardiovascul ar Disease Referral Priority Routine Diagnosis 1 Lumbar radiculopathy (M54.16) Referral Organization [facility] Referring Provider First Name BEBETO Referring Provider Last Name NELLY Referring Provider Speciality Internal M edicine Referred Organization [facility] Referred Provider FABIEN JOHNSON Referred Address [address] [place],[address], Referred Provider Specialty Orthopedic S urgery Referral Priority Routine Medications Medication SIG (Take, Route, Frequency, Duration) Notes Start Date End Date Status Trelegy Ellipta 100-62.5-25 MCG/ACT Aerosol Powder Breath Activated 1 puff Inhalation Once a day; Duration: 30 days 07/26/2024 Active Azelastine HCl 137 MCG/SPRAY Solution 2 puffs (1 spray in each nostril) Nasally Twice a day; Duration: 30 days 11/26/2024 Active Sutab 1078-877-031 MG Tablet 12 tablets the first dose [...] 10/25/2024 Active Vitamin D (Ergocalciferol) 1.25 MG (19227 UT) Capsule TAKE 1 CAPSULE BY MOUTH [...] Date Status Comme nts Influenza (whole), CPT 76052 Inactive Unknown 05/27/2015 Pending [place] Fluzone Quadrivalent (3 years+), NOT PRSV free [...] Status W/U Status Risk Notes Problem Overweight (456073339) Overweight (E66.3) Active confirmed Problem Metabolic disorder (26706946) Metabolic disorder, unspecified (E88.9) Active confirmed Problem Primary insomnia (4727408) Primary insomnia (F51.01) Active confirmed Treatment Plan: [...] refills as discussed. Problem Chronic pain syndrome (808663655) Chronic pain syndrome (G89.4) Active confirmed Problem Lymphedema (598092147) Lymphedema, not elsewhere classified (I89.0) Active confirmed Problem Thoracic radiculopathy (88422623) Intervertebral disc disorders with radiculopathy, thoracic region (M51.14) Active confirmed Problem Sciatica (65321567) Lumbago with sciatica, left side (M54.42) Active confirmed Problem Hesitancy of micturition (3579374) Hesitancy of micturition (R39.11) Active confirmed Problem Carpal tunnel syndrome of right wrist (487527660720103) Carpal tunnel syndrome of right wrist (G56.01) Active confirmed Problem Essential hypertension (61233813) Essential hypertension (I10) Active confirmed Problem Vitamin D deficiency (32502931) Vitamin D deficiency (E55.9) Active confirmed Problem Lumbar radiculopathy (665989187) Lumbar radiculopathy (M54.16) Active confirmed Problem Chest pain (08649250) Chest pain, unspecified type (R07.9) Active confirmed Problem Obese class I (finding) (373021435269415) Obesity (BMI 30.0-34.9) (E66.9) Active confirmed Problem Seasonal allergy (707931116) Seasonal allergies (J30.2) Active confirmed Problem Gastroesophageal reflux disease (272140711) Gastroesophageal reflux disease, esophagitis presence not specified (K21.9) Active confirmed Problem Allergic rhinitis (82316681) Allergic rhinitis (J30.9) Active confirmed Problem Fatty liver (157581504) Fatty liver (K76.0) Active confirmed Problem Low back pain (finding) (268987499) Low back pain without sciatica, unspecified back pain laterality, unspecified chronicity (M54.5) Active confirmed Problem Exacerbation of intermittent asthma (726540751) Allergic asthma, mild intermittent, with acute exacerbation (J45.21) Active confirmed Problem Essential hypertension (41479533) Accelerated hypertension (I10) Active confirmed Problem Degeneration of cervical intervertebral disc (83596006) Degenerative disc disease, cervical (M50.30) Active confirmed Problem Displacement of lumbar intervertebral disc without myelopathy (99785245) Bulging lumbar disc (M51.26) Active confirmed Problem Degeneration of lumbar intervertebral disc (92435397) Lumbar degenerative disc disease (M51.36) Active confirmed [...] DISCUSSION: The patient will be contacted by customer service receptionist to schedule follow-up appointments with Dr. Shipman. 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) Antral gastritis (K29.50) Active confirmed Problem Dry eyes (816211623) Dry eyes (H04.123) Active confirmed Problem History of chest pain (31352749023453374 ) Hx of chest pain (Z87.898) Active confirmed Problem Occupational injury (942098660) Work related injury (Y99.0) Active confirmed Problem Thoracic radiculopathy (55271845) Thoracic radiculopathy (M54.14) Active confirmed Problem Duodenal ulcer (96809747) Duodenal ulcer (K26.9) Active confirmed Problem Displacement of cervical intervertebral disc without myelopathy (56155979) Bulging of cervical intervertebral disc (M50.20) Active confirmed Problem Sciatica (11681748) Acute low back pain with left-sided sciatica, unspecified back pain laterality (M54.42) Active confirmed Problem Disorder of lumbar disc (258043594) Lumbar disc disorder (M51.9) Active confirmed Problem Chondromalacia of left patella (363394326751115) 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) Active confirmed Problem Chondromalacia of right patella (54734952207308000 ) 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) Active confirmed Problem Patellofemoral disorder, unspecified laterality (M22.2X9) Active confirmed Problem Scoliosis (902431172) Scoliosis of thoracolumbar spine, unspecified scoliosis type (M41.9) Active confirmed Problem Bilateral carpal tunnel syndrome (01911340912298565 ) Bilateral carpal tunnel syndrome (G56.03) Active confirmed Problem Chronic idiopathic constipation (51269252) Chronic idiopathic constipation (K59.04) Active confirmed Problem Benign prostatic hypertrophy without outflow obstruction (549371968) Benign prostatic hyperplasia without lower urinary tract symptoms (N40.0) Active confirmed Problem Lower urinary tract symptoms due to benign prostatic hypertrophy (70538819096323) Benign prostatic hyperplasia with lower urinary tract symptoms (N40.1) Active confirmed Problem Carpal tunnel syndrome (38573862) Carpal tunnel syndrome on both sides (G56.03) Active confirmed Problem Lumbar spondylosis (982034509) Lumbar spondylosis (M47.816) Active confirmed Problem Essential hypertension (20154683) Essential (primary) hypertension (I10) Active confirmed Problem Exposure to communicable disease (592111164) Contact with and (suspected) exposure to other viral communicable diseases (Z20.828) Active confirmed Problem Degeneration of lumbar intervertebral disc (36675555) Other intervertebral disc degeneration, lumbar region (M51.36) Active confirmed Problem Lumbar radiculopathy (128260509) Radiculopathy, lumbar region (M54.16) Active confirmed Problem Balanitis (42970851) Balanitis (N48.1) Active confirmed Problem Thoracic radiculopathy (13477854) Radiculopathy, thoracic region (M54.14) Active confirmed Problem Lumbosacral spondylosis without myelopathy (disorder) (96415467) Spondylosis without myelopathy or radiculopathy, lumbosacral region (M47.817) Active confirmed Problem Infection of bilateral eyes (80300584062319122 ) Eye infection, bilateral (H44.003) Active confirmed Problem Arthritis of left acromioclavicular joint (5105864298936196) 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) Active confirmed Problem Herniation of nucleus pulposus of lumbar intervertebral disc co-occurrent with sciatica (110667909391296) Herniation of lumbar intervertebral disc with radiculopathy (M51.16) Active confirmed Problem Chronic pain (80212449) Chronic pain (G89.4) Active confirmed Problem Chronic pain (85006670) Chronic pain (G89.29) Active confirmed Problem Arthropathy of lumbar facet joint (324708086) Lumbar facet arthropathy (M47.816) Active confirmed Problem Cervical spondylosis (804711792) Cervical spondylosis (M47.812) Active confirmed Problem Lumbosacral spondylosis without myelopathy (81471781) Facet arthritis of lumbosacral region (M47.817) Active confirmed Problem Varicose veins of bilateral lower limbs (58384759148979376 ) Varicose veins of bilateral lower extremities w/ other complications (I83.893) Active confirmed Problem Post-acute COVID-19 (disorder) (0283064077) 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) Active confirmed Problem Non-pressure chronic ulcer of lower leg, limited to breakdown of skin, unspecified laterality (L97.901) Active confirmed Problem Patellofemoral syndrome (613381256) Patellofemoral syndrome, right (M22.2X1) Active confirmed Problem 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) Active confirmed Problem Opioid dependence (50880301) Long-term current use of methadone for opiate [...] N/A Encounters Encounter Location Date Provider Diagnosis [place] [address] [place] [address] 06/17/2024 BEBETO VILLEGAS Other chronic pain G89.29 ; Lumbar disc disorder M51.9 and Primary insomnia F51.01 [place] [address] [place] [address] 06/25/2024 BEBETO VILLEGAS Lumbar disc disorder M51.9 and Back pain M54.9 [place] [address] [place] [address] 07/01/2024 BEBETO VILLEGAS Lumbar disc disorder M51.9 and Back pain M54.[address] [place] [address] 07/02/2024 BEBETO VILLEGAS Left hand pain M79.642 and Chronic pain syndrome G89.[address] [place] [address] 07/05/2024 BEBETO VILLEGAS Encounter to discuss test results Z71.89 and Left hand pain M79.[address] [place] [address] 07/24/2024 BEBETO VILLEGAS [address] [place] [address] 07/26/2024 BEBETO VILLEGAS Primary insomnia F51.01 ; Lumbar disc disorder M51.9 ; Seasonal allergies J30.2 ; Acute cough R05.1 and Allergic asthma, mild intermittent, with acute exacerbation J45.[address] [place] [address] 07/29/2024 BEBETO VILLEGAS Cough R05.[address] [place] [address] 07/29/2024 BEBETO VILLEGAS [address] [place] [address] 08/02/2024 BEBETO VILLEGAS Encounter related to worker's compensation claim Z02.6 ; Acute left-sided low back pain without sciatica M54.50 ; Injury due to fall, initial encounter W19.XXXA and Left arm pain M79.[address] [place] [address] 08/02/2024 BEBETO VILLEGAS Rash of groin R21 an d Intertrigo L30.[address] [place] [address] 08/15/2024 HIRAM BUCK Lumbar radiculopathy M54.16 ; Encounter for annual general medical examination with abnormal findings in adult Z00.01 ; Primary insomnia F51.01 ; Allergic asthma, mild intermittent, with acute exacerbation J45.21 ; Colon cancer screening Z12.11 ; Advanced care planning/counseling discussion Z71.89 and Left ankle pain M25.[address] [place] [address] 08/26/2024 BEBETO VILLEGAS Lumbar disc disorder M51.[address] [place] [address] 08/29/2024 GRACE OSOFSKY Other enthesopathy o f right foot and ankle M77.51 ; Valgus deformity, not elsewhere classified, right ankle M21.071 ; Valgus deformity, not elsewhere classified, left ankle M21.072 ; Posterior tibial tendon dysfunction, right M76.821 and Pain in right foot M79.[address] [place] [address] 09/02/2024 BEBETO VILLEGAS Generalized body aches R52 and Lumbago with sciatica, left side M54.[address] [place] [address] 09/13/2024 BEBETO VILLEGAS Accidental fall, initial encounter W19.XXXA ; Encounter related to worker's compensation claim Z02.6 ; Acute pain due to trauma G89.11 and Rib pain on right side R07.[address] [place] [address] 09/13/2024 BEBETO VILLEGAS Lumbar radiculopathy M54.16 and senior living (current) use of opiate analgesic Z79.[address] [place] [address] 09/16/2024 BEBETO VILLEGAS Other chronic pain G89.29 and Scoliosis of thoracolumbar spine, unspecified scoliosis type M41.[address] [place] [address] 09/16/2024 BEBETO VILLEGAS Closed fracture of multiple ribs of right side, initial encounter S22.41XA ; Encounter related to worker''s compensation claim Z02.6 and Encounter for issuance of medical certificate Z02.[address] [place] 09/19/2024 BEBETO VILLEGAS Encounter related to worker's compensation claim Z02.6 and Rib pain R07.[address] [place] 09/26/2024 BEBETO VILLEGAS Encounter related to worker's compensation claim Z02.6 ; Closed fracture of multiple ribs of right side, initial encounter S22.41XA and Lumbar disc disorder M51.[address] [place] 09/26/2024 BEBETO VILLEGSA Chest pain, unspecified type R07.9 and Nonintractable headache, unspecified chronicity pattern, unspecified headache type R51.[address] [place] 10/11/2024 BEBETO VILLEGAS Primary insomnia F51.01 ; Lumbar disc disorder M51.9 ; Lumbar radiculopathy M54.16 ; Acute cough R05.1 ; senior living current use of opiate analgesic Z79.891 and Allergic asthma, mild intermittent, with acute exacerbation J45.[address] [place] 10/11/2024 BEBETO VILLEGAS Closed fracture of multiple ribs of right side, initial encounter S22.41XA ; Encounter related to worker''s compensation claim Z02.6 and Encounter for issuance of medical certificate Z02.[address] [place] 10/14/2024 BEBETO VILLEGAS URI (upper respiratory infection) J06.9 ; Sinus pressure J34.89 ; Dry eyes H04.123 ; Cough R05.9 ; Headache G44.319 and Low grade fever R50.[address] [place] 10/24/2024 BEBETO VILLEGAS Lumbar spondylosis M47.[address] [place] [address] 10/28/2024 BEBETO VILLEGAS Rib pain on right side R07.81 ; Closed fracture of multiple ribs of right side, initial encounter S22.41XA and Encounter related to worker's compensation claim Z02.[address] [place] [address] 11/05/2024 BEBETO VILLEGAS Primary insomnia F51.01 and Other chronic pain G89.[address] [place] [address] 11/05/2024 BEBETO VILLEGAS Rib pain on right side R07.81 ; Closed fracture of multiple ribs of right side, initial encounter S22.41XA ; Encounter related to worker's compensation claim Z02.6 ; Herniation of lumbar intervertebral disc with radiculopathy M51.16 and Intervertebral disc disorders with radiculopathy, thoracic region M51.[address] [place] [address] 11/08/2024 BEBETO VILELGAS Encounter related to worker''s compensation claim Z02.6 ; Chronic pain G89.29 ; Encounter for issuance of medical certificate Z02.79 ; Rib pain on right side R07.81 ; Closed fracture of multiple ribs of right side, initial encounter S22.41XA ; Herniation of lumbar intervertebral disc with radiculopathy M51.16 and Intervertebral disc disorders with radiculopathy, thoracic region M51.[address] [place] [address] 11/12/2024 BEBETO VILLEGAS [address] [place] [address] 11/12/2024 BEBETO VILLEGAS Primary insomnia F51.01 ; Chondromalacia, right knee M94.261 ; Other chronic pain G89.29 and Lumbar radiculopathy M54.[address] [place] [address] 11/15/2024 BEBETO VILLEGAS Chronic pain syndrom e G89.4 ; Lumbar radiculopathy M54.16 and Encounter related to worker's compensation claim Z02.[address] [place] [address] 11/26/2024 BEBETO VILLEGAS Acute cough R05.1 ; Acute URI J06.9 and Allergic rhinitis J30.[address] [place] [address] 11/26/2024 BEBETO VILLEGAS Rib pain on right side R07.81 ; Closed fracture of multiple ribs of right side, initial encounter S22.41XA ; Encounter related to worker's compensation claim Z02.6 ; Herniation of lumbar intervertebral disc with radiculopathy M51.16 and Intervertebral disc disorders with radiculopathy, thoracic region M51.[address] [place] [address] 12/05/2024 BEBETO VILLEGAS Primary insomnia F51.01 ; Lumbar radiculopathy M54.16 and Medication management Z79.[address] [place] [address] 12/26/2024 BEBETO VILLEGAS Encounter to discuss test results Z71.89 ; Lumbar radiculopathy M54.16 ; Chronic cough R05.3 ; Essential hypertension I10 ; Lower extremity edema R60.0 and Obesity (BMI 30.0-34.9) E66.[address] [place] [address] 12/26/2024 BEBETO VILLEGAS Rib pain on right side R07.81 ; Closed fracture of multiple ribs of right side, initial encounter S22.41XA ; Encounter related to worker's compensation claim Z02.6 ; Herniation of lumbar intervertebral disc with radiculopathy M51.16 ; Intervertebral disc disorders with radiculopathy, thoracic region M51.14 and Back pain M54.[address] [place] [address] 01/02/2025 BEBETO VILLEGAS Medication managemen t Z79.899 ; Chest congestion R09.89 ; Cough R05.9 ; Sinus pressure J34.89 ; Lumbar radiculopathy M54.16 ; Primary insomnia F51.01 ; Allergic asthma, mild intermittent, with acute exacerbation J45.21 and senior living current use of opiate analgesic Z79.[address] [place] [address] 01/02/2025 BEBETO VILLEGAS Rib pain on right side R07.81 ; Closed fracture of multiple ribs of right side, initial encounter S22.41XA ; Encounter related to worker's compensation claim Z02.6 ; Herniation of lumbar intervertebral disc with radiculopathy M51.16 ; Intervertebral disc disorders with radiculopathy, thoracic region M51.14 and Back pain M54.[address] [place] [address] 02/10/2025 BEBETO VILLEGAS Lumbar radiculopathy M54.16 ; Allergic asthma, mild intermittent, with acute exacerbation J45.21 ; Seasonal allergies J30.2 ; Primary insomnia F51.01 ; Other chronic pain G89.29 and senior living current use of opiate analgesic Z79.[address] [place] [address] 03/07/2025 BEBETO VILLEGAS Lumbar radiculopathy M54.16 ; Primary insomnia F51.01 ; Seasonal allergies J30.2 ; Vitamin D deficiency E55.9 and 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 Z79.[address] [place] [address] 03/13/2025 BEBETO VILLEGAS [address] [place] [address] 05/27/2025 BEBETO VILLEGAS Lumbar radiculopathy M54.16 ; Abdominal pain R10.84 ; 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 Z79.891 and Medication management Z79.[address] [place] [address] 06/02/2025 BEBETO VILLEGAS Essential hypertension I10 ; Abdominal pain R10.84 and Medication management Z79.[address] [place] [address] 06/12/2025 BEBETO VILLEGAS Lumbar radiculopathy M54.16 ; Shoulder pain M25.512 and Encounter related to worker's compensation claim Z02.6 2 [facility] [address] [place] [id number] 06/20/2024 ALIE SCHULTE Screen for colon cancer Z12.[address] [place] [address] 06/17/2024 IRENE GUALLPA [facility] [address] [place] [address] 06/25/2024 GRACE HERRERA [facility] [address] [place] [address] 06/25/2024 BEBETO VILLEGAS [facility] [address] [place] [address] 06/27/2024 BEBETO VILLEGAS [facility] [address] [place] [address] 07/02/2024 BEBETO VILLEGAS Left hand pain M79.[address] [address] 07/02/2024 BEBETO VILLEGAS [facility] [address] [place] [address] 07/02/2024 BEBETO VILLEGAS [facility] [address] [place] [address] 07/05/2024 BEBETO VILLEGAS [facility] [address] [place] [address] 07/15/2024 BEBETO VILLEGAS Lumbar disc disorder M51.9 [facility] [address] [place] [address] 07/22/2024 DANNY HEREDIA [facility] [address] [place] [address] 07/26/2024 BEBETO VILLEGAS [address] [place] [address] 08/02/2024 BEBETO VILLEGAS [address] [place] [address] 08/02/2024 BEBETO VILLEGAS Encounter related to worker's compensation claim Z02.6 ; Injury due to fall, initial encounter W19.XXXA ; Left arm pain M79.602 and Acute left-sided low back pain without sciatica M54.50 [place] [address] [place] [address] 08/02/2024 BEBETO VILLEGAS [place] [address] [place] [address] 08/02/2024 IRENE GUALLPA Injury of left elbow , initial encounter S59.902A and Acute bilateral low back pain without sciatica M54.50 [place] [address] [place] [address] 08/13/2024 CALERosaline COTTRELLOS Lumbar radiculopathy M54.16 and Other chronic pain G89.29 [place] [address] [place] [address] 08/19/2024 CALE DEMETROS Fever, unspecified fever cause R50.9 and COVID-19 U07.1 [facility] [address] [place] [address] 08/19/2024 CALE GUERRERO 419 [facility] [address] [place] [address] 08/27/2024 BEBETO VILLEGAS 419 [facility] [address] [place] [place] [address] 08/29/2024 GRACE HERRERA [facility] [address] [place] [address] 08/30/2024 BEBETO VILLEGAS [facility] [address] [place] [address] 09/02/2024 BEBETO VILLEGAS [address] [place] [address] 09/03/2024 BEBETO VILLEGAS [facility] [address] [place] [address] 09/04/2024 RODOLFO MEZA [facility] [address] [place] [address] 09/16/2024 RODOLFO MEZA Lumbar radiculopathy M54.16 ; Facet arthritis of lumbosacral region M47.817 ; Thoracic radiculopathy M54.14 and Lumbar spondylosis M47.816 [place] [address] [place] [address] 09/13/2024 IRENE GUALLPA Injury of abdomen, initial encounter S39.91XA and Rib pain on right side R07.[address] [address] 09/13/2024 IRENE GUALLPA [facility] [address] [place] [address] 09/13/2024 CEASAR LOCO Closed fracture of multiple ribs of right side, initial encounter S22.41XA [address] [place] [address] [address] [place] [address] 09/18/2024 RODOLFO DAMACHARLA Lumbar radiculopathy M54.16 ; Facet arthritis of lumbosacral region M47.817 ; Thoracic radiculopathy M54.14 and Lumbar spondylosis M47.[address] [place] [address] 09/19/2024 JANET SHIPMAN Encounter related to worker's compensation claim Z02.6 ; Closed fracture of multiple ribs of right side, initial encounter S22.41XA ; Lumbar disc disorder M51.9 and Right hip pain M25.[address] [place] [address] 09/18/2024 IRENE GUALLPA Closed fracture of multiple ribs of right side with routine healing, subsequent encounter S22.41XD [address] [place] [address] 09/19/2024 BEBETO VILLEGAS Chronic pain G89.4 419 [facility] [address] [place] [address] 09/19/2024 JANET SHIPMAN [facility] [address] [place] [address] 09/19/2024 BEBETO VILLEGAS [facility] [address] [place] [address] 09/24/2024 BEBETO VILLEGAS Primary insomnia F51.01 [facility] [address] [place] [address] 10/01/2024 MARYLucy TRAORE Essential hypertension I10 ; Obesity (BMI 30.0-34.9) E66.9 ; Pain in right leg M79.604 ; Pain in left leg M79.605 and Lower extremity edema R60.[address] [place] [address] 09/30/2024 BEBETO VILLEGAS Back pain M54.[address] [place] [id number] 09/30/2024 ALIE SCHULTE Screen for colon cancer Z12.11 [facility] [address] [place] [address] 10/18/2024 MARY LEÓN Lower extremity mario a R60.0 [facility] [address] [place] 10/18/2024 MARY LEÓN Lower extremity mario a R60.[address] [place] [address] 10/02/2024 PPROVIDER OUTSIDE Generalized abdomina l pain R10.[address] [address] 10/02/2024 PPROVIDER OUTSIDE [address] [place] [address] 10/02/2024 BEBETO VILLEGAS [address] [place] [address] 10/02/2024 PPROVIDER OUTSIDE [address] [address] 10/16/2024 BEBETO VILLEGAS URI (upper respiratory infection) J06.9 [facility] [address] [place] [address] 10/21/2024 RODOLFO MEZA [facility] [address] [place] [address] 10/24/2024 BEBETO VILLEGAS [facility] [address] [place] [address] 10/25/2024 RODOLFO MEZA Lumbar radiculopathy M54.16 ; Thoracic radiculopathy M54.14 ; Lumbar spondylosis M47.816 and Work related injury Y99.0 [facility] [address] [place] [address] 10/29/2024 RODOLFO MEZA Thoracic radiculopathy M54.14 [facility] [address] [place] [address] 10/29/2024 RODOLFO MEZA Lumbar radiculopathy M54.16 and Lumbar spondylosis M47.816 [facility] [address] [place] [address] 10/25/2024 ALIE SCHULTE [address] [address] 10/25/2024 BEBETO URBINALATI [facility] [address] [place] [address] 10/25/2024 RODOLFO MEZA [facility] [address] [place] [address] 11/02/2024 RODOLFO MEZA Lumbar radiculopathy M54.16 ; Lumbar spondylosis M47.816 ; Thoracic radiculopathy M54.14 and Work related injury Y99.0 [facility] [address] [place] [address] 11/02/2024 RODOLFO MEZA [facility] [address] [place] [address] 11/11/2024 MARY TRAORE Essential hypertension I10 ; Obesity (BMI 30.0-34.9) E66.9 ; Pain in right leg M79.604 ; Pain in left leg M79.605 and Lower extremity edema R60.0 [facility] [address] [place] [address] 11/06/2024 RODOLFO MEZA [address] [address] 11/07/2024 BEBETO URBINALATI [facility] [address] [place] [address] 12/06/2024 MARY TRAORE Lower extremity mario a R60.[address] [address] 11/26/2024 BEBETO NELLY [facility] [address] [place] [address] 11/26/2024 [facility] [address] [place] [address] 11/26/2024 BEBETO [facility] [address] [place] [address] 11/28/2024 BEBETO [facility] [address] [place] [address] 11/29/2024 RODOLFO MEZA Lumbar radiculopathy M54.16 ; Lumbar spondylosis M47.816 ; Thoracic radiculopathy M54.14 and Work related injury Y99.0 [facility] [address] [place] [address] 11/29/2024 RODOLFO MEZA [facility] [address] [place] [address] 11/29/2024 RODOLFO MEZA [facility] [address] [place] [address] 12/02/2024 ERIN CONLEY Upper respiratory tract infection, unspecified type J06.[address] [address] 12/09/2024 [facility] [address] [place] [address] 12/18/2024 RODOLFO MEZA [address] [address] 12/18/2024 IRENE GUALLPA [facility] [address] [place] [address] 12/23/2024 RODOLFO MEZA Lumbar radiculopathy M54.16 ; Lumbar spondylosis M47.816 ; Thoracic radiculopathy M54.14 and Work related injury Y99.0 [facility] [address] [place] [address] 12/23/2024 ERIN CONLEY Upper respiratory tract infection, unspecified type J06.9 [facility] [address] [place] [address] 12/24/2024 MARY LEÓN Essential hypertension I10 ; Lower extremity edema R60.0 ; Obesity (BMI 30.0-34.9) E66.9 ; Pain in right leg M79.604 and Pain in left leg M79.605 [facility] [address] [place] [address] 12/27/2024 BEBETO VILLEGAS [address] [place] [address] 01/29/2025 BEBETO VILLEGAS [address] [address] 02/11/2025 BEBETO VILLEGAS Back pain M54.9 [facility] [address] [place] [address] 02/25/2025 BEBETO VILLEGAS Primary insomnia F51.01 [facility] [address] [place] [address] 02/25/2025 ERIN CONLEY Other low back pain M54.59 [facility] [address] [place] [address] 03/10/2025 BEBETO VILLEGAS [facility] [address] [place] [address] 04/09/2025 BEBETO VILLEGAS [facility] [address] [place] [address] 05/27/2025 BEBETO VILLEGAS Lumbar radiculopathy M54.16 [facility] [address] [place] [address] 05/27/2025 BEBETO VILLEGAS Primary insomnia F51.01 and Lumbar radiculopathy M54.16 [facility] [address] [place] [address] 05/29/2025 BEBETO VILLEGAS [facility] [address] [place] [address] 06/02/2025 BEBETO VILLEGAS [facility] [address] [place] [address] 06/12/2025 BEBETO VILLEGAS [facility] [address] [place] [address] 06/13/2025 BEBETO VILLEGAS Assessments Encounter Date Diagnosis [...] problems.Non-pha rmacological Strategies: Dietary changes to include S05-fvgt foods (e.g., meat, poultry, fish, eggs, dairy). [...] up with his primary care physician and director of land, Dr. Preciado, to discuss long-term pain management [...] advised to continue follow-up with Dr. Meza. [facility] paperwork was facilitated for a planned recovery [...] fractures. The patient requests an extension for [facility] paperwork related to this injury. He has [...] additional injuries or complications. Treatment Plan The [facility] paperwork was completed and signed to accommodate [...] good efficacy and no adverse effects. The [employer] I-STOP was reviewed to ensure appropriate use [...] dependence, sedation, constipation, and respiratory depression. The [employer] was reviewed to ensure appropriate use [...] times daily for chronic pain management. The [employer] I-[employer] was reviewed for appropriate use. 2. [...] at T12-L1 level. MRI is also showing xhtydacv-cm-exoq re foraminal stenosis at L3-L4, L4-L5 and L5-S1 levels and ystv-gm-dnbncxuw at other levels. There could be a [...] effects were discussed with the patient. - HAM STRINGER-I stop was reviewed with the patient today. [...] -The refills were provided as requested. - HAM STRINGER-I stop was reviewed with the patient today. Adv on general care back. Use heating pad, Bengay cream to back as needed. Avoid any identifying/iden tified triggers. Sleep on firm mattress. Bend from knees not back to pick remover objects. Adv on proper lifting technique. This [...] effects were discussed with the patient. - HAM STRINGER-I stop was reviewed with the patient today. [...] -The refills were provided as requested. - HAM STRINGER-I stop was reviewed with the patient today. [...] -The refills were provided as requested. - HAM STRINGER-I stop was reviewed with the patient today. [...] good symptom control. The Prescription Monitoring Program (HAM STRINGER) was reviewed to ensure safe prescribing of [...] mg IM injection for back pain. Reviewed HAM STRINGER for controlled substance safety. Counseled patient on [...] fractures. The patient requests an extension for [facility] paperwork related to this injury. He has [...] additional injuries or complications. Treatment Plan The [facility] paperwork was completed and signed to accommodate [...] at T12-L1 level. MRI is also showing kuzpgkow-by-xlzw re foraminal stenosis at L3-L4, L4-L5 and L5-S1 levels and drzj-rq-fkkvkjsb at other levels. There could be a [...] Ambien and tizanidine. The prescription monitoring program (HAM STRINGER I-STOP) was reviewed to ensure compliance with [...] a new disc herniation at T12-L1 with mdqchskr-bi-yn dillon stenosis at L3-4 and L5-S1 and kxuw-do-otthld te stenosis at other levels. There is [...] need for surgical intervention, referral to a exhibition specialist was considered a future option. Managing [...] has been deemed 100% disabled by the dip painter, Dr. Meza; however, he has not received [...] was advised to follow up with his dip painter, Dr. Meza. -The Toradol 30 intramuscular injection [...] his employer and follow up with his dip painter. He was instructed to monitor his pain levels and report any changes or worsening of symptoms. 11/08/2024 Chronic pain (ICD-10 - G89.29) -He was advised to follow up with his dip painter, Dr. Meza. -The Toradol 30 intramuscular injection will be administered to the patient today. The patient was advised visiting the for injection administration. This is a 59-year-old male patient presenting today via telemed for his workers compensation follow up visit. The patient presents with severe pain following a work-related injury. He has been deemed 100% disabled by the dip painter, Dr. Meza; however, he has not received [...] was advised to follow up with his dip painter, Dr. Meza. -The Toradol 30 intramuscular injection [...] his employer and follow up with his dip painter. He was instructed to monitor his pain [...] care with increased fluids and may use xaix-hsj-pmuycvz medications to control cough. Patient advised to [...] disability status for worker's compensation purposes, with uxulfq-fc-xxce timing to be determined based on future [...] approach. Emphasizing communication with his worker's compensation retail service representative s and healthcare providers regarding changes [...] at T12-L1 level. MRI is also showing rhrhcnwh-vf-izgs re foraminal stenosis at L3-L4, L4-L5 and L5-S1 levels and lylz-ch-nutkakqa at other levels. There could be a [...] cough and generally not feeling wellPatient's and fuoygg-xe-xsx are sick with similar symptomsSuspect viral infectionRule [...] the risks of combining Ambien with other END STAPLER depressants. Non-pharmacologi perry strategies, such as cognitive [...] advised to continue follow-up with Dr. Meza. [facility] paperwork was facilitated for a planned recovery [...] to modify activities as tolerable and use eexf-nvh-vigbyms remedies as helpful. He is given a [...] up with his primary care physician and director of land, Dr. Precaido, to discuss long-term pain management strategies and [...] 5 mg for chronic pain management. The HAM STRINGER I-STOP was reviewed with the patient during the visit. The patient was advised to follow up in one month or sooner if needed. - Refilled oxycodone. - Monitor for side effects. - Follow up in one month. 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 The HAM STRINGER I-STOP was reviewed with the patient during [...] ies for 8 hours postinjection. new to [place] 08/19/2024 COVID-19 (ICD-10 - U07.1) Patient tested [...] extra rest. Advised patient to take an sqvz-dzs-jxssmoa medicine, such as acetaminophen (Tylenol) to reduce fever. Recommended clvb-mwf-joecoai medications to help with the congestion, cough and discomfort. The risks, benefits, and alternatives for all the treatments provided today were reviewed in detail with the patient. Patient verbalized understanding and consented to treatment plan. Discharged in stable condition. new to [place] 08/26/2024 Lumbar disc disorder (ICD-10 - M51.9) [...] fractures or dislocations. Patient advised to use zcjm-jyj-xptqrov remedies as otherwise helpful and continue follow-up with pain management and PCP as scheduled. Modify activities as tolerable. If anything worsens or changes, patient advised to call or return to office or ER. Patient verbalizes understanding to plan and all questions were answered. Discharged today in stable condition. All diagnoses new to [facility] 08/02/2024 Acute bilateral low back pain without sciatica (ICD-10 - M54.50) All diagnoses new to [facility] 08/13/2024 Lumbar radiculopathy (ICD-10 - M54.16) Toradol [...] today in stable condition. not new to [facility] 08/13/2024 Other chronic pain (ICD-10 - G89.29) not new to [facility] 08/15/2024 Lumbar radiculopathy (ICD-10 - M54.16) (History [...] in stable condition. all diagnoses new to [place] 09/19/2024 Encounter related to worker's compensation claim [...] refill for Tramadol was provided, and the HAM STRINGER I-STOP was reviewed with the patient during [...] refill for Tramadol was provided, and the HAM STRINGER I-STOP was reviewed with the patient during [...] was referred to Urgent Care at the [facility] for further evaluation and to complete a [...] was referred to Urgent Care at the [facility] for further evaluation and to complete a [...] Tramadol, Montelukast, and Zolpidem were processed. The HAM STRINGER I-STOP was reviewed with the patient during the visit. The patient was advised to follow up in one month or sooner if any need arises. - Prescribed Tessalon Perles for cough. - Prescribed Trelegy Ellipta inhaler. - Processed refills for Tramadol, Montelukast, and Zolpidem. - Reviewed HAM STRINGER I-STOP. - Follow up in one month. [...] Tramadol, Montelukast, and Zolpidem were processed. The HAM STRINGER I-STOP was reviewed with the patient during the visit. The patient was advised to follow up in one month or sooner if any need arises. - Prescribed Tessalon Perles for cough. - Prescribed Trelegy Ellipta inhaler. - Processed refills for Tramadol, Montelukast, and Zolpidem. - Reviewed HAM STRINGER I-STOP. - Follow up in one month. [...] Tramadol, Montelukast, and Zolpidem were processed. The HAM STRINGER I-STOP was reviewed with the patient during the visit. The patient was advised to follow up in one month or sooner if any need arises. - Prescribed Tessalon Perles for cough. - Prescribed Trelegy Ellipta inhaler. - Processed refills for Tramadol, Montelukast, and Zolpidem. - Reviewed HAM STRINGER I-STOP. - Follow up in one month. [...] was referred to Urgent Care at the [facility] for further evaluation and to complete a [...] refill for Tramadol was provided, and the HAM STRINGER I-STOP was reviewed with the patient during [...] the risks of combining Oxycodone with other END STAPLER depressants. Non-pharmacologi perry strategies, such as physical [...] disability status for worker's compensation purposes, with hljtil-mm-qzef timing to be determined based on future [...] approach. Emphasizing communication with his worker's compensation retail service representative s and healthcare providers regarding changes [...] has been deemed 100% disabled by the dip painter, Dr. Meza; however, he has not received [...] was advised to follow up with his dip painter, Dr. Meza. -The Toradol 30 intramuscular injection [...] his employer and follow up with his dip painter. He was instructed to monitor his pain [...] a new disc herniation at T12-L1 with tsxucyyn-sb-vd dillon stenosis at L3-4 and L5-S1 and wbmk-yw-hvvwff te stenosis at other levels. There is [...] need for surgical intervention, referral to a exhibition specialist was considered a future option. Managing [...] Ambien and tizanidine. The prescription monitoring program (HAM STRINGER I-STOP) was reviewed to ensure compliance with [...] fractures. The patient requests an extension for [facility] paperwork related to this injury. He has [...] additional injuries or complications. Treatment Plan The [facility] paperwork was completed and signed to accommodate [...] good symptom control. The Prescription Monitoring Program (HAM STRINGER) was reviewed to ensure safe prescribing of [...] mg IM injection for back pain. Reviewed HAM STRINGER for controlled substance safety. Counseled patient on [...] -The refills were provided as requested. - HAM STRINGER-I stop was reviewed with the patient today. [...] effects were discussed with the patient. - HAM STRINGER-I stop was reviewed with the patient today. [...] effects were discussed with the patient. - HAM STRINGER-I stop was reviewed with the patient today. [...] dependence, sedation, constipation, and respiratory depression. The HAM STRINGER I-STOP was reviewed to ensure appropriate use [...] times daily for chronic pain management. The HAM STRINGER I-STOP was reviewed for appropriate use. 2. [...] good efficacy and no adverse effects. The HAM STRINGER I-STOP was reviewed to ensure appropriate use [...] good efficacy and no adverse effects. The HAM STRINGER I-STOP was reviewed to ensure appropriate use [...] for any side effects or complications. 05/27/2025 senior living current use of opiate analgesic (ICD-10 - [...] dependence, sedation, constipation, and respiratory depression. The HAM STRINGER I-STOP was reviewed to ensure appropriate use [...] times daily for chronic pain management. The HAM STRINGER I-STOP was reviewed for appropriate use. 2. [...] told him he needs to have a mold capper and the patient states that he is trying to find a mold capper who speaks Croatian. 12/24/2024 Pain in right leg (ICD-10 - [...] -The refills were provided as requested. - HAM STRINGER-I stop was reviewed with the patient today. [...] good symptom control. The Prescription Monitoring Program (HAM STRINGER) was reviewed to ensure safe prescribing of [...] mg IM injection for back pain. Reviewed HAM STRINGER for controlled substance safety. Counseled patient on [...] a new disc herniation at T12-L1 with sraiebed-vf-en dillon stenosis at L3-4 and L5-S1 and lznu-dh-abaygw te stenosis at other levels. There is [...] need for surgical intervention, referral to a exhibition specialist was considered a future option. Managing [...] a new disc herniation at T12-L1 with ooczeygg-vh-wl dillon stenosis at L3-4 and L5-S1 and jxye-tq-yjostr te stenosis at other levels. There is [...] need for surgical intervention, referral to a exhibition specialist was considered a future option. Managing [...] disability status for worker's compensation purposes, with qoksjq-fy-yncp timing to be determined based on future [...] approach. Emphasizing communication with his worker's compensation retail service representative s and healthcare providers regarding changes [...] was referred to Urgent Care at the [facility] for further evaluation and to complete a [...] Tramadol, Montelukast, and Zolpidem were processed. The HAM STRINGER I-STOP was reviewed with the patient during the visit. The patient was advised to follow up in one month or sooner if any need arises. - Prescribed Tessalon Perles for cough. - Prescribed Trelegy Ellipta inhaler. - Processed refills for Tramadol, Montelukast, and Zolpidem. - Reviewed HAM STRINGER I-STOP. - Follow up in one month. [...] Tramadol, Montelukast, and Zolpidem were processed. The HAM STRINGER I-STOP was reviewed with the patient during the visit. The patient was advised to follow up in one month or sooner if any need arises. - Prescribed Tessalon Perles for cough. - Prescribed Trelegy Ellipta inhaler. - Processed refills for Tramadol, Montelukast, and Zolpidem. - Reviewed HAM STRINGER I-STOP. - Follow up in one month. [...] to optimize care and therapeutic outcomes. 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 The patient is advised to have compliance attorney for his Worker's Comp case as [...] disability status for worker's compensation purposes, with hgcbrx-pa-wcwk timing to be determined based on future [...] approach. Emphasizing communication with his worker's compensation retail service representative s and healthcare providers regarding changes [...] has been deemed 100% disabled by the dip painter, Dr. Meza; however, he has not received [...] was advised to follow up with his dip painter, Dr. Meza. -The Toradol 30 intramuscular injection [...] his employer and follow up with his dip painter. He was instructed to monitor his pain levels and report any changes or worsening of symptoms. 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 There is [...] need for surgical intervention, referral to a exhibition specialist was considered a future option. Managing [...] was advised to avoid alcohol and other END STAPLER depressants while taking Ambien, and non-pharmacologi perry [...] good symptom control. The Prescription Monitoring Program (HAM STRINGER) was reviewed to ensure safe prescribing of [...] mg IM injection for back pain. Reviewed HAM STRINGER for controlled substance safety. Counseled patient on [...] -The refills were provided as requested. - HAM STRINGER-I stop was reviewed with the patient today. Adv on general care back. Use heating pad, Bengay cream to back as needed. Avoid any identifying/iden tified triggers. Sleep on firm mattress. Bend from knees not back to pick remover objects. Adv on proper lifting technique. This is a 59-year-old male patient presenting today via telemGrabbit for a follow up visit for medical [...] -The refills were provided as requested. - HAM STRINGER-I stop was reviewed with the patient today. [...] effects were discussed with the patient. - HAM STRINGER-I stop was reviewed with the patient today. [...] 2. The patient is advised to have compliance attorney for his Worker's Comp case as [...] dependence, sedation, constipation, and respiratory depression. The HAM STRINGER I-STOP was reviewed to ensure appropriate use [...] times daily for chronic pain management. The HAM STRINGER I-STOP was reviewed for appropriate use. 2. [...] good efficacy and no adverse effects. The HAM STRINGER I-STOP was reviewed to ensure appropriate use [...] tendon dysfunction, right (ICD-10 - M76.821) 03/07/2025 senior living current use of opiate analgesic (ICD-10 - [...] good efficacy and no adverse effects. The HAM STRINGER I-STOP was reviewed to ensure appropriate use [...] effects were discussed with the patient. - HAM STRINGER-I stop was reviewed with the patient today. [...] -The refills were provided as requested. - HAM STRINGER-I stop was reviewed with the patient today. [...] -The refills were provided as requested. - HAM STRINGER-I stop was reviewed with the patient today. [...] good symptom control. The Prescription Monitoring Program (HAM STRINGER) was reviewed to ensure safe prescribing of [...] mg IM injection for back pain. Reviewed HAM STRINGER for controlled substance safety. Counseled patient on [...] has been deemed 100% disabled by the dip painter, Dr. Meza; however, he has not received [...] was advised to follow up with his dip painter, Dr. Meza. -The Toradol 30 intramuscular injection [...] his employer and follow up with his dip painter. He was instructed to monitor his pain [...] disability status for worker's compensation purposes, with iajsli-xt-ujoy timing to be determined based on future [...] approach. Emphasizing communication with his worker's compensation retail service representative s and healthcare providers regarding changes [...] smell. Medical Decision Making: The medical decision-makethan kay process involves addressing the patient's need [...] has been deemed 100% disabled by the dip painter, Dr. Meza; however, he has not received [...] was advised to follow up with his dip painter, Dr. Meza. -The Toradol 30 intramuscular injection [...] his employer and follow up with his dip painter. He was instructed to monitor his pain levels and report any changes or worsening of symptoms. 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 The [...] good symptom control. The Prescription Monitoring Program (HAM STRINGER) was reviewed to ensure safe prescribing of [...] mg IM injection for back pain. Reviewed HAM STRINGER for controlled substance safety. Counseled patient on [...] -The refills were provided as requested. - HAM STRINGER-I stop was reviewed with the patient today. [...] effects were discussed with the patient. - HAM STRINGER-I stop was reviewed with the patient today. [...] side effects from the new medications. 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 - HAM STRINGER-I stop was reviewed with the patient today. [...] of Care: Ongoing monitoring and referral to exhibition specialist if surgery becomes necessary.Non-ph armacological strategies: Maintain a regimen of therapeutic exercise and posture correction. This is a 59-year-old male patient presenting today via telemed for his workers compensation follow up visit. The patient presents with severe pain following a work-related injury. He has been deemed 100% disabled by the dip painter, Dr. Meza; however, he has not received [...] was advised to follow up with his dip painter, Dr. Meza. -The Toradol 30 intramuscular injection [...] his employer and follow up with his dip painter. He was instructed to monitor his pain [...] services may not be as complete as kyeh-yl-edti services. If your Provider believes you would be better served by another form of medical services (e.g. face to face services) you will be asked to make a lzaa-ib-iwfy appointment. There are potential risks and benefits associated with any form of medical treatment. You may expect the anticipated benefits from the use of telemedicine in your care, but no results can be guaranteed or assured. Scribed for Hiram SLAUGHTER by [facility] Scribe. All medical record entries made by [...] was referred to Urgent Care at the [facility] for further evaluation and to complete a [...] Dr. Mary Traore MD by Zakia Beckham Chemical Process Project Engineer. All medical record entries made by the [...] up with his primary care physician and director of land, Dr. Preciado, to discuss long-term pain management [...] Tramadol, Montelukast, and Zolpidem were processed. The HAM STRINGER I-STOP was reviewed with the patient during the visit. The patient was advised to follow up in one month or sooner if any need arises. - Prescribed Tessalon Perles for cough. - Prescribed Trelegy Ellipta inhaler. - Processed refills for Tramadol, Montelukast, and Zolpidem. - Reviewed HAM STRINGER I-STOP. - Follow up in one month. [...] Ambien and tizanidine. The prescription monitoring program (HAM STRINGER I-STOP) was reviewed to ensure compliance with [...] advised to continue follow-up with Dr. Meza. [facility] paperwork was facilitated for a planned recovery [...] for Rodolfo Meza M.D., by Lauri Martinez Chemical Process Project Engineer. All medical record entries made by the [...] 5 mg for chronic pain management. The HAM STRINGER I-STOP was reviewed with the patient during [...] services may not be as complete as bhyj-ow-tvbt services. If your Provider believes you would be better served by another form of medical services (e.g. face to face services) you will be asked to make a cmem-fy-xvrg appointment. There are potential risks and benefits associated with any form of medical treatment. You may expect the anticipated benefits from the use of telemedicine in your care, but no results can be guaranteed or assured. . Scribed for ROBBI Ruelas by Gary Gamino Chemical Process Project Engineer. All medical record entries made by the [...] for Rodolfo Meza M.D., by Jimmie Kraft, Chemical Process Project Engineer. All medical record entries made by the [...] refill for Tramadol was provided, and the HAM STRINGER I-STOP was reviewed with the patient during [...] 10/28/2024 Other By signing my name below, IBteh, attest that this documentation has been prepared under the direction and in the presence of Bebeto Villgeas MD IBebeto personally performed the services described [...] fractures. The patient requests an extension for [facility] paperwork related to this injury. He has [...] additional injuries or complications. Treatment Plan The [facility] paperwork was completed and signed to accommodate [...] for Rodolfo Meza M.D., by Jimmie Kraft Chemical Process Project Engineer. All medical record entries made by the [...] Dr. Mary Traore MD by Zakia Beckham Chemical Process Project Engineer. All medical record entries made by the [...] for Rodolfo Meza M.D., by Jimmie Kraft Chemical Process Project Engineer. All medical record entries made by the [...] has been deemed 100% disabled by the dip painter, Dr. Meza; however, he has not received [...] was advised to follow up with his dip painter, Dr. Meza. -The Toradol 30 intramuscular injection [...] his employer and follow up with his dip painter. He was instructed to monitor his pain [...] disability status for worker's compensation purposes, with hvafjz-ao-kvwe timing to be determined based on future [...] approach. Emphasizing communication with his worker's compensation retail service representative s and healthcare providers regarding changes [...] By signing my name below, I, Syeda Reo, attest that this documentation has been supervised [...] for Rodolfo Meza M.D., by Jimmie Kraft Chemical Process Project Engineer. All medical record entries made by the [...] for Rodolfo Meza M.D., by Jimmie Kraft Chemical Process Project Engineer. All medical record entries made by the [...] effects were discussed with the patient. - HAM STRINGER-I stop was reviewed with the patient today. [...] -The refills were provided as requested. - HAM STRINGER-I stop was reviewed with the patient today. [...] good symptom control. The Prescription Monitoring Program (HAM STRINGER) was reviewed to ensure safe prescribing of [...] mg IM injection for back pain. Reviewed HAM STRINGER for controlled substance safety. Counseled patient on medication adherence, side effects, and risks. Advised follow-up as scheduled or sooner if symptoms change. FOLLOWUP DISCUSSION: The patient was scheduled for a follow-up appointment in one month to evaluate the effectiveness of the current treatment plan and to monitor for any side effects or complications. 03/07/2025 Other By signing my name below, Stu Roasles, attest that this documentation has been prepared [...] good efficacy and no adverse effects. The HAM STRINGER I-STOP was reviewed to ensure appropriate use [...] dependence, sedation, constipation, and respiratory depression. The HAM STRINGER I-STOP was reviewed to ensure appropriate use [...] times daily for chronic pain management. The HAM STRINGER I-STOP was reviewed for appropriate use. 2. [...] Date EKG* 08/18/2020 TSH 04/21/2016 Hepatitis Panel* [id number] 08/03/2017 [place] Eye Exam with Fluorescein [...] 06/02/2025 PSA Antigen-[facility] 06/02/2025 Thyroid Stimulating Hormone 6-Mccxu-Vctf lica 06/02/2025 Vitamin D Total-[facility] 06/02/2025 Comp Metabolic Panel (14)-[facility] 06/02 Lipid Panel-[facility] 06/02/2025 Hemoglobin A1c * 33498 06/09/2025 ESR (sed rate) * 04178 06/09/2025 CBC W/DIFF with Refx to Retic (new) IN H OUSE *6* 06/09/2025 Next Appt Details Provider Name:MARY TRAORE, 10:00:00 AM, [address], [place], [address], Insurance Providers Payer Name Payer Address Payer Phone Subscriber Number Group Number Insured Name Patient Relationship to Insured Coverage Start Date Coverage End Date [facility] SH[employer]ED [employer] [address] [address] [place] [address] [id number] Tino Phillips Self - patient is the insured [facility] [address] [address] [place] [address] [id number] [employer], Employee 2 [employer] [facility] [id number] Unknown, Employee [employer] [id number] [place] [address] 2024 [employer], Employee [facility] [employer] [phone] [place] [address] [id number] [employer], Employee Medications Administered Medication Instructions Date [...]
--- OUTSIDE RECORDS SUMMARY | 2025-06-16 08:29 | XMS_ITS | Encounter Summary ---
Author Organization [employer] Address [address] [place] [address] 7t [place] [address] Care Team Providers Care Ambulance Dispatcher Name Role Phone Missy Mcwilliams MD Primary Care Provider [phone] Encounter Details Date Type Department Care Team (Late st Contact Info) Description 06/15/2025 Orders Only [facility] External Provider, [facility] Social History Tobacco Use Types Packs/Day Years [...] with others, in a hotel, in a correction, living outside on the street, on a [...] Upcoming Encounters Date Type Department Care Team ([facility] st Contact Info) Description 06/19/2025 1:00 PM EST Clinical Support [facility] [address] [place] [address] Mirta Valerio RN [address] [place] [address] 06/19/2025 2:30 PM EST Clinical Support [facility] [address] [place] [address] 07/22/2025 10:15 AM EST Office Visit [facility] MED[facility]INE [address] [place] [address] Name, MD Nestor [address] [place] [address] documented as of this encounter Procedures Procedure Name Priority Date/Time Associated Diagnosis Comments XR LUMBAR SPINE 2-3 VIEWS Routine 06/15/2025 4:05 PM EST XR HIP RIGHT WITH PELVIS 1 VIEW Routine 06/15/2025 4:03 PM EST documented in this encounter Results * XR Lumbar Spine 2-3 Views (06/15/2025 4:05 PM EST) Anatomical Region Laterality Modality Spine, L-spine Radiographic Jessica ging 06/15/2025 4:05 PM EST Narrative 06/15/2025 4:06 PM EST [address] [address] XRay Report Signed Patient: Tino Phillips MR#: [id number] : 1965 Acct:[id number] Age/Sex: 59 / M ADM Date: 06/15/25 Loc: HO.ED Attending Dr: Ordering Physician: Colton Solis Date of Service: 06/15/25 Procedure(s): XR lumbar spine 2-3V Accession Number(s): [id number] cc: Colton Solis; Missy Mcwilliams MD Reason [...] by Romeo Sierra MD in OV> 06/15/25 1605 DD/ 1605 TD/TT: 06/15/25 1605 Heel Stainer: Procedure Note Donotuseinterpreter, Image - 06/15/[address] [address] XRay Report Signed Patient: Tino PhillipsMR#: [id number] : 1965Acct:[id number] Age/Sex: 59 / MADM Date: 06/15/25 Loc: HO.ED Attending Dr: Ordering Physician: Colton Solis Date of Service: 06/15/25 Procedure(s): XR lumbar spine 2-3V Accession Number(s): [id number] cc: Colton Solis; Missy Mcwilliams MD Reason [...] by Romeo Sierra MD in OV> 06/15/25 1605 DD/ 1605 TD/TT: 06/15/25 1605 Heel Stainer: [facility] External Provider IMG XR PROCEDURES Edited Result - Final * XR Hip right with Pelvis 1 view (06/15/2025 4:03 PM EST) Anatomical Region Laterality Modality Lower Extremities, Hip Bilateral Radiograp hic Imaging 06/15/2025 4:03 PM EST Narrative 06/15/2025 4:05 PM EST [place] [address] XRay Report Signed Patient: Tino Phillips MR#: [id number] : 1965 Acct:[id number] Age/Sex: 59 / M ADM Date: 06/15/25 Loc: HO.ED Attending Dr: Ordering Physician: Colton Solis Date of Service: 06/15/25 Procedure(s): XR hip RT w PEL1V Accession Number(s): [id number] cc: Colton Solis; Missy Mcwilliams MD Reason [...] 06/15/25 1604 DD/ 1603 TD/TT: 06/15/25 1603 Heel Stainer: Procedure Note Gigi, Image - 06/15/[address] [address] XRay Report Signed Patient: Renu Phillips#: [id number] : 1965Acct:[id number] Age/Sex: 59 / MADM Date: 06/15/25 Loc: HO.ED Attending Dr: Ordering Physician: Colton Solis Date of Service: 06/15/25 Procedure(s): XR hip RT w PEL1V Accession Number(s): [id number] cc: Colton Solis; Missy Mcwilliams MD Reason [...] 06/15/25 1604 DD/ 1603 TD/TT: 06/15/25 1603 Heel Stainer: [facility] External Provider IMG XR PROCEDURES Edited Result - Final documented in this encounter Visit Diagnoses Not on filedocumented in this encounter Additional Health Concerns Assessment Noted Time PHQ-9 Depression Total Score: 22 06/02/ 025 11:19 AM EDT documented as of this encounter Care Teams Ambulance Dispatcher Relationship Specialty Start Date End Date Missy Mcwilliams MD [address] [place] [address] PCP - General Family Medicine 03/31/25 documented as of this encounter
--- OUTSIDE RECORDS SUMMARY | 2025-06-16 08:29 | XMS_ITS | Encounter Summary ---
Author Organization [facility] [employer] Address [address] [place] [address] 7 [place] [address] Care Team Providers Care Mysql Dba Name Role Phone Missy Mcwilliams MD Primary Care Provider [phone] Reason for Visit * Reason Onset Date Comments Med Refill 05/22/2025 Encounter Details Date Type Department Care Team ([facility] st Contact Info) Description 05/22/2025 Telephone [facility] [address] [place] [address] Missy Mcwilliams MD [address] [place] [id number] Med Refill Social History Tobacco Use Types [...] 15 tablets of zolpidem (Ambien) 10 mg [facility] pharmacy. documented in this encounter Plan of Treatment Upcoming Encounters Date Type Department Care Team (Late st Contact Info) Description 06/19/2025 1:00 PM EST Clinical Support [facility] [address] [place] [address] Mirta Valerio RN [address] [place] [address] 06/19/2025 2:30 PM EST Clinical Support [facility] [address] [place] [address] 07/22/2025 10:15 AM EST Office Visit [facility] [address] [place] [address] Name, MD Nestor [address] [place] [address] documented as of this encounter Visit Diagnoses Not on filedocumented in this encounter Care Teams Mysql Dba Relationship Specialty Start Date End Date Missy Mcwilliams MD [address] [place] [address] PCP - General Family Medicine 03/31/25 documented as of this encounter
== END 2025-06-16 08:08 | disposition home or self-care (01) ==
LOC: HO.HOSX 08:07
DX: Z13.89 Encounter for screening for other disorder (principal)

== ENCOUNTER 2025-06-23 10:13 | Outpatient (AMB) | payer MEDICAID, SELFPAY ==
--- NOTE | 2025-06-23 10:33 | A.SPINEOV_ITS ---
Intake Visit Reasons: Lumbar radiculopathy Intake Note: Mr. Phillips is here today c/o low back pain. MRI done in [place] (brought disc) Command And Control Required: Yes Command And Control Name: MAHAD Lafleur Allergies No Known Allergies Allergy (Verified 06/15/25 14:21) Assessment & Plan Assessment & Plan (1) Neck pain: Code(s): M54.2 - Cervicalgia Category: Medical (2) Chronic low back pain: Code(s): M54.50 - Low back pain, unspecified; G89.29 - Other chronic pain Category: Medical (3) Lumbar radiculopathy: Code(s): M54.16 - Radiculopathy, lumbar region Category: Medical Plan Dear Megan, Thank you for referring Mr phillips to our office today. He is a very nice 59-year-old gentleman presents to the office today for evaluation of pain throughout his body after a fall. 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 He landed on his right side and since then has had right -sided low back which goes down around toward the front of his leg. He also has pain on the left side which goes down the back of his leg. He also reports pain in his ribs. He has pain in his thoracic spine as well as his neck in his right shoulder. He reports a history of dropping things as well as his legs feeling weak like they are going to give it out from underneath him. He previously has done injections in the past for chronic low back pain before the fall and those worked very well. He did undergo physical therapy for few weeks but it was causing too much pain so they made him stop. He takes oxycodone tizanidine but has also tried gabapentin and naproxen PMH: Hypertension related to the pain he is having, carpal tunnel release, umbilical hernia repair but other than that he denies any medical history Social hx: He does not smoke, drink use any recreational drugs Medications: Oxycodone, tizanidine, zolpidem, gabapentin, naproxen Allergies: None Physical exam: Awake alert oriented no acute distress, slow to walk around the room, he has an antalgic gait. Limited examination secondary to pain with any attempts at movement of his arms or legs. Reflexes are normal to slightly brisk, but no Muniz's sign, no clonus. Imaging review: There is lumbar MRI and thoracic MRI scanned into our system from a imaging system and [place], and these show he does have scoliotic curvature of the lumbar spine with multilevel degenerative disc disease. X-rays done at [facility] show that looks like there could be auto fusion at L1-2 and L2- 3. He has severe right L5 foraminal stenosis. Thoracic imaging does not show any evidence of significant disc herniation, fracture or spinal cord compression. Impression: 59-year-old male presents for evaluation of acute back pain, whole- body pain that started after a fall in September. 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 He has been intense pain daily. He has chronic findings on his MRI which would have been consistent with his previous back pain for which he underwent injections and had great success. I do not see anything acute to explain this level of pain. He has tried some physical therapy without much success. He does have a lawsuit out for this fall. He does not have a worker's comp case. I explained to him that in the best situation of surgical outcome, patients who have outstanding lawsuits, generally do not do well. Dr. Irvin will generally tell the patient's to settle the lawsuit 1st unless there is some glaring acute finding that is pressing or urgent. This gentleman does not have those kind of findings. Everything here looks chronic. Therefore, I am recommending he trial further nonoperative treatment. I will refer him to pain management as he has had previous good success with injections. I will order a cervical MRI because he does complain of neck pain and right arm pain as well as dropping things. He has some borderline brisk reflexes so I will just exclude myelopathy as a precaution. Thank you for allowing us to care for your patient. The total time spent with this visit with this patient was 45 minutes reviewing history, physical exam, lumbar imaging review, and implementation of treatment plan or further diagnostic testing Kvng Irvin MD,PhD [facility] Orders: Orders MR cervical spine wo con Today M54.2 - Cervicalgia Referrals Pain Management Referral G89.29 - Other chronic pain, M54.16 - Radiculopathy, lumbar region, M54.50 - Low back pain, unspecified Coding Level of Care Code New Pt Level 4 (02381) Diagnoses Neck pain M54.2 Chronic low back pain M54.50; G89.29 Lumbar radiculopathy M54.16
== END 2025-06-23 11:18 | disposition home or self-care (01) ==
LOC: HO.HNS 10:13
PROVIDERS: PCP Family Medicine; Referring Provider Registered Nurse; Visit Provider Physician Assistant
DX: M54.2 Cervicalgia (principal); M54.50 Low back pain, unspecified; G89.29 Other chronic pain; M54.16 Radiculopathy, lumbar region
CPT/HCPCS: 99204

== ENCOUNTER → 2025-06-23 10:13 | Outpatient (BNVA) | payer MEDICAID, SELFPAY | PROVIDERS: PCP Family Medicine; Referring Provider Registered Nurse; Visit Provider Physician Assistant | DX: M54.2 Cervicalgia (principal); M54.50 Low back pain, unspecified; G89.29 Other chronic pain; M54.16 Radiculopathy, lumbar region | CPT/HCPCS: 99212 ==

== ENCOUNTER 2025-07-11 10:47 | Outpatient (AMB) | payer MEDICAID, SELFPAY ==
--- OUTSIDE RECORDS SUMMARY | 2025-06-13 08:15 | XMS_ITS ---
Author Organization [facility] Address [address] [place] [address] Care Team Providers Care Hand Stitcher Name Role Phone BEBETO VILLEGAS Primary Care Provider CHANTAL DALLAS Unavailable [phone] REASON FOR VISIT ALFONZO Biggs - Start [...] End Encounters Encounter Location Date Provider Diagnosis [facility] [address] [place] [address] 06/13/2025 BEBETO NELLY Plan Of Treatment No Information Progress Notes * Tino CERVANTESDOB:1965 ([age] yo M)Acc No.[id number]:06/13/2025 progress notes Patient: Tino Art Provider: Brodie VILLEGAS MD :1965 A ge:59 Y S ex:Male Date:06/13/2025 Address:[address] [place] [address] [address], [address], [id number] Subjective: * Chief Complaints: * * ALFONZO [...] * Electronic signature of WILLIAMS VILLEGAS MD, [id number] on 07/11/2025 at 12:58 PM EST Sign off status: Pending * Provider: Brodie VILLEGAS MD Date: 08/13/2024 Generated for Lalita castro/Florian/Oni on: 09/11/2024 12:58 PM EST
--- NOTE | 2025-07-11 10:47 | A.OFFVIS_ITS ---
Vital Signs 07/11/25 10:49 Height 5 ft 7 in Weight 200 lb BMI 31.3 BP 141/86 H Blood Pressure Location Lt brachial Position Sitting Respiration 16 Pulse 75 Pulse Source Pulse Oximeter Pulse Oximetry (%) 98 Oxygen Delivery Method Room Air Intake Visit Reasons: Low back pain, unspecified Balancing Machine Set Up Worker Required: No Accompanied by: Significant Other Allergies No Known Allergies Allergy (Verified 07/14/25 11:09) Medication List - Last Reconciled 07/11/25 by Emily Newberry LPN albuterol sulfate 90 mcg/actuation (Ventolin HFA) 2 puffs inhalation Q6H PRN capsaicin 0.025% 1 patch topical BID PRN diazepam (Valium) 2 mg PO TID 2 days zbihtizgsny-yqfbeeucd-bsznutaq 100-62.5-25 mcg (Trelegy Ellipta) 1 inh inhalation DAILY montelukast 10 mg PO BEDTIME oxycodone 5 mg PO QID PRN tizanidine 4 mg PO Q8H PRN zolpidem (Ambien) 10 mg PO BEDTIME PRN HPI HPI Low back pain, unspecified: Details: History of Present Illness The patient is a 59-year-old male presenting for a pain management consultation for chronic back pain. His current symptoms began after a fall on ice on September 12 of this year, where he landed on his right side. He complains of lower back pain, which is worse on the right side, and has difficulty sleeping and walking. The pain has altered his gait, causing him to lean to one side. In addition to his back pain, he sustained a shoulder injury in the fall, which may require surgery. 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 He received a prior epidural injection which provided relief for 4-6 months. The patient's injury is part of a workers' compensation case that has been denied, and he has not received payment or pain management treatment since the incident in September. This has resulted in significant personal and financial hardship. Pain Description - Onset: The patient's pain began after he fell on ice in September of this year. - Location: The pain is primarily in the lower back, bothering both sides but worse on the right. - Radiation: Pain radiates to the buttock and down the leg. - Severity: The pain is described as really bad. - Exacerbating Factors: Pain is worsened by bending forward and backward, as well as with axial loading. - Interference with Function: The pain makes it difficult to walk and interferes with sleep. Physical Exam - General: Patient appears in distress due to pain. - Musculoskeletal: Significant pain with lumbar flexion and extension. - Pain is also noted with lateral bending. - Neurologic: Gait is altered; patient leans to one side while walking. Results - MRI Lumbar Spine: - Multilevel disc degeneration with vertebral endplate Modic changes. - Disc degeneration and nerve compression at L3-4. Pain Management - Analgesia: The patient is not currently receiving any injections or pain medication. - He reports his pain level is really bad. - Activities of Daily Living: Pain interferes with his ability to sleep and walk. - He is unable to work his former job as a postman. - Adverse Effects: Not applicable, as he is not currently on pain medications. - Affect: The patient expresses significant distress, stating his life is out and has changed. - Aberrant Drug-Related Behaviors: None noted. [facility] Medical History GERD (gastroesophageal reflux disease) Asthma Insomnia Hypertension Chronic pain of both shoulders Osteoarthritis of both knees Left wrist pain Cervical pain Chronic low back pain Lumbar degenerative disc disease Lumbar radiculopathy Lumbar spinal stenosis Surgical History History of carpal tunnel surgery of right wrist Physical Exam Vital Signs: Last Vital Signs Pulse 75 07/11/25 10:49 Resp 16 07/11/25 10:49 BP 141/86 H 07/11/25 10:49 Pulse Ox 98 07/11/25 10:49 Oxygen Delivery Method Room Air 07/11/25 10:49 BMI result Body Mass Index 31.3 Assessment & Plan Assessment & Plan (1) Lumbar radiculopathy: Code(s): M54.16 - Radiculopathy, lumbar region Category: Medical (2) Vertebrogenic low back pain: Code(s): M54.51 - Vertebrogenic low back pain Category: Medical Plan Plan Patient was informed and verbally consented to the use of an ambient scribe for clinic note documentation during this visit. 1. Chronic Low Back Pain With Right Lumbar Radiculopathy - An MRI of the lumbar spine reveals multilevel disc degeneration, vertebral endplate Modic changes, and nerve compression at L3-4, which correlate with the patient's right-sided radicular symptoms and axial back pain. - A right L3 transforaminal epidural steroid injection (TFESI) will be scheduled as the next step to address the radicular symptoms. - The injection will be performed under X-ray guidance, and the patient will be contacted with an appointment date within the next 2-3 weeks. - The Intracept procedure was discussed as a potential future therapeutic option for his vertebrogenic pain related to endplate changes, and a brochure was provided. Discussion Notes I acknowledged the significant hardship the patient has endured since his injury. I explained that his MRI findings, including multilevel disc degeneration and nerve compression at L3-4, are consistent with his symptoms of back and leg pain. I recommended we start treatment with a right L3 transforaminal epidural steroid injection to address the pain radiating into his buttock and leg. I informed him that this injection would likely not help significantly with the pain located just in his back. We discussed that the procedure will be performed under X-ray guidance and that our office will call him in the next two to three weeks to schedule it. I also introduced the Intracept procedure as a potential future o ption for his axial back pain related to vertebral endplate changes and provided him with a brochure. I advised we will take his treatment one step at a time. Patient Instructions - Your back pain is related to disc and bone changes in your lower spine that are pressing on nerves. - We will schedule you for a cortisone shot (injection) in your back to help with the pain going down your buttock and leg. - This injection will be done using an X-ray to make sure the medicine goes to the right spot. - Our office will call you in the next 2 to 3 weeks to give you a date and time for the injection. - We briefly talked about another procedure for back pain, and you were given a brochure with more information about it. Coding Level of Care Code New Pt Level 4 (01398) Diagnoses Lumbar radiculopathy M54.16 Vertebrogenic low back pain M54.51
[2025-07-11 10:49] VITALS: BP 141/86; PULSE 75; RESP 16; O2SAT 98; BMI 31.3
--- OUTSIDE RECORDS SUMMARY | 2025-07-11 12:58 | XMS_ITS | Encounter Summary ---
Author Organization [employer] Address [address] [address] [facility] [address] [place] [address] Care Team Providers Care Training Development Manager Name Role Phone Missy Mcwilliams MD Primary Care Provider [phone] Nestor Lofton MD Primary Care Provider [phone] Reason for Visit * Reason Onset Date Comments Med Refill 06/16/2025 Prior Auth Prescription 06/16/2025 Encounter Details Date Type Department Care Team ([facility] st Contact Info) Description 06/16/2025 Telephone [facility] MEDICINE [address] [place] [address] Missy Mcwilliams MD [address] [place] [address] Med Refill; Prior Auth Prescription Social History Tobacco Use Types Packs/Day Years [...] with others, in a hotel, in a long term, living outside on the street, on a [...] the past 12 months, has t he [employer], gas, oil or water company threatened to [...] encounter Miscellaneous Notes * Telephone Encounter - Alta Francois - 06/17/2025 11:03 AM EST PT Need a PA for medication. * Telephone Encounter - Bren Hsu - 06/16/2025 12:09 PM EST TC from pt requesting medication refill. Medications needing refill : -oxyCODONE (Roxicodone) 10 MG immediate release tablet To be sent to: -[facility]/pharmacy #[id number] Pt stated after sending medication it need a PA documented in this encounter Plan of Treatment Upcoming Encounters Date Type Department Care Team ([facility] st Contact Info) Description 07/22/2025 10:15 AM EST Office Visit [facility] MEDICINE [address] [place] [id number] Name, MD Nestor [address] [place] [address] documented as of this encounter Visit Diagnoses Not on filedocumented in this encounter Additional Health Concerns Assessment Noted Time PHQ-9 Depression Total Score: 22 025 11:19 AM EDT documented as of this encounter Care Teams Training Development Manager Relationship Specialty Start Date End Date Missy Mcwilliams MD [address] [place] [id number] PCP - General Family Medicine 03/31/25 06/18/25 Name, MD Nestor [address] [place] [address] PCP - General Internal Medicine 06/19/25 documented as of this encounter
--- OUTSIDE RECORDS SUMMARY | 2025-07-11 12:58 | XMS_ITS | Encounter Summary ---
Author Organization [employer] Address [address] [facility] 7 [place] [address] Care Team Providers Care Aquaculture Farm Manager Name Role Phone Missy Mcwilliams MD Primary Care Provider [phone] Nestor Lofton MD Primary Care Provider [phone] Reason for Visit * Reason Onset Date Comments Med Refill 06/16/2025 Prior Auth Prescription 06/16/2025 Encounter Details Date Type Department Care Team ([facility] st Contact Info) Description 06/16/2025 Telephone [facility] MEDICINE [address] [place] [address] Missy Mcwilliams MD 505 [place] [address] Med Refill; Prior Auth Prescription Social History [...] the past 12 months, has t he Gaming for Good, gas, oil or water [employer] threatened to shut off services in your [...] Miscellaneous Notes * Telephone Encounter - Dee eDe Stone LPN - 06/19/2025 1:26 PM EST Executive Coordinator spoke with regarding PA needed , stated No pa is needed for 28 day supply just need a Rx to be sent,. Please review * Telephone Encounter - Nuris Peña - 06/18/2025 2:28 PM EST Tc from pt requesting a update on PA stating he has been out of medication for 4 days Contact pt at [phone] ([place]) * Telephone Encounter - Alta Francois - 06/17/2025 11:04 AM EST Script is at Pharmacy just need a Pa. * Telephone Encounter - Faye Ordonez LPN - 06/16/2025 12:26 PM EST Script was sent to [facility] #[id number] on 06/10/25. * Telephone Encounter - Bren Hsu - 06/16/2025 12:05 PM EST TC from pt requesting medication refill. Medications needing refill : - zolpidem (Ambien) 10 MG tablet To be sent to: - [facility]/pharmacy #[id number] - [address] Pt stated after sending medication it need a PA documented in this encounter Plan of Treatment Upcoming Encounters Date Type Department Care Team ([facility] st Contact Info) Description 07/22/2025 10:15 AM EST Office Visit [facility] MEDICINE [address] [place] [address] NameNestor MD [address] [place] [address] documented as of this encounter Visit Diagnoses Not on filedocumented in this encounter Additional Health Concerns Assessment Noted Time PHQ-9 Depression Total Score: 22 025 11:19 AM EDT documented as of this encounter Care Teams Aquaculture Farm Manager Relationship Specialty Start Date End Date Missy Mcwilliams MD [address] [place] [address] PCP - General Family Medicine 03/31/25 06/18/25 NameNestor MD [address] [place] [address] PCP - General Internal Medicine 06/19/25 documented as of this encounter
--- OUTSIDE RECORDS SUMMARY | 2025-07-11 12:58 | XMS_ITS | Encounter Summary ---
Author Organization [employer] Address [address] [place] [address] 7 [place] [address] Care Team Providers Care Manager Perioperative Name Role Phone Missy Mcwilliams MD Primary Care Provider [phone] Nestor Lofton MD Primary Care Provider [phone] Reason for Visit * Reason Onset Date Comments call back 06/10/2025 Encounter Details Date Type Department Care Team ([facility] st Contact Info) Description 06/10/2025 Telephone [facility] MEDICINE [address] [place] [address] Missy Mcwilliams MD [address] [place] [address] call back Social History Tobacco Use Types [...] with others, in a hotel, in a nursing home, living outside on the street, on [...] requesting an call back Contact pt at [phone] documented in this encounter Plan of Treatment Upcoming Encounters Date Type Department Care Team ([facility] st Contact Info) Description 07/22/2025 10:15 AM EST Office Visit [facility] MEDICINE [address] [place] [address] Name, MD Nestor [address] [place] [address] documented as of this encounter Visit Diagnoses Not on filedocumented in this encounter Additional Health Concerns Assessment Noted Time PHQ-9 Depression Total Score: 22 025 11:19 AM EDT documented as of this encounter Care Teams Manager Perioperative Relationship Specialty Start Date End Date Missy Mcwilliams MD [address] [place] [address] PCP - General Family Medicine 03/31/25 06/18/25 Name, MD Nestor [address] [place] [address] PCP - General Internal Medicine 06/19/25 documented as of this encounter
--- OUTSIDE RECORDS SUMMARY | 2025-07-11 12:58 | XMS_ITS | Encounter Summary ---
Author Organization [employer] Address [address] [place] [address] 7 [place] [address] Care Team Providers Care Snag Grinder Name Role Phone Missy Mcwilliams MD Primary Care Provider [phone] Nestor Lofton MD Primary Care Provider [phone] Reason for Visit * Reason Onset Date Comments Med Refill 05/09/2025 Encounter Details Date Type Department Care Team (Late st Contact Info) Description 05/09/2025 Refill [facility] [address] [place], [place] [phone] Missy Mcwilliams MD [address] [place] [address] Lumbar radiculopathy (Primary Dx) Social History Tobacco [...] 1:09 PM EDT TC to pt, initial ELECTRONICS ENGINEERING TECHNICIAN appointment scheduled for 05/15/25 @3pm. * Telephone Encounter - Nuris Peña - 05/09/2025 12:55 PM EDT TC from pt requesting medication refill. Medications needing refill : oxyCODONE (Roxicodone) 5 MG immediate release tablet To be sent to: [facility]/pharmacy #[id number] - [address] documented in this encounter Plan of Treatment Upcoming Encounters Date Type Department Care Team (Late st Contact Info) Description 07/22/2025 10:15 AM EST Office Visit [facility] MED[facility]INE [address] [place] [address] NameNestor MD [address] [place] [address] documented as of this encounter Visit Diagnoses Diagnosis Lumbar radiculopathy- Primary Thoracic or lumbosacral neuritis or radiculitis, unspecified documented in this encounter Care Teams Snag Grinder Relationship Specialty Start Date End Date Missy Mcwilliams MD [address] [place] [address] PCP - General Family Medicine 03/31/25 06/18/25 Nestor Lofton MD [address] [place] [address] PCP - General Internal Medicine 06/19/25 documented as of this encounter
--- OUTSIDE RECORDS SUMMARY | 2025-07-11 12:58 | XMS_ITS | Encounter Summary ---
Author Organization [employer] Address [address] [place] [address] [place] [address] Care Team Providers Care Cuff Slitter Name Role Phone Missy Mcwilliams MD Primary Care Provider [phone] Nestor Lotfon MD Primary Care Provider Encounter Details Date Type Department Care Team (Late Contact Info) Description 05/09/2025 Orders Only [facility] MED & PEDS [address] [place], [place] [phone] Luiza Resendiz MD [address] [place] [address] Social History Tobacco Use Types Packs/Day Years [...] Description 07/22/2025 10:15 AM EST Office Visit [facility] MEDICINE [address] [place], [place] [phone] Nestor Lofton MD [address] [place] [address] documented as of this encounter Visit Diagnoses Not on filedocumented in this encounter Care Teams Cuff Slitter Relationship Specialty Start Date End Date Missy Mcwilliams MD [address] [place] [address] PCP - General Family Medicine 03/31/25 06/18/25 Name, MD Nestor [address] [place] [address] PCP - General Internal Medicine 06/19/25 documented as of this encounter
--- OUTSIDE RECORDS SUMMARY | 2025-07-11 12:58 | XMS_ITS | Encounter Summary ---
Author Organization [employer] Address [address] [place] [address] 7 [place] [address] Care Team Providers Care Therapist Asst Name Role Phone Missy Mcwilliams MD Primary Care Provider [phone] Nestor Lofton MD Primary Care Provider [phone] Reason for Visit * Reason Onset Date Comments Med Refill 06/09/2025 Encounter Details Date Type Department Care Team ([facility] st Contact Info) Description 06/09/2025 Telephone [facility] MEDICINE [address] [place] [address] Missy Mcwilliams MD [address] [place] [address] Med Refill Social History Tobacco Use Types [...] with others, in a hotel, in a detention, living outside on the street, on a [...] got money to buy more: Sometimes True 10/27/ 2025 Within the past 12 months,th e food [...] Ordonez LPN - 06/09/2025 11:27 AM EST JIG AND FIXTURE MAKER checked on 06/09/25 medication last sold on 06/02/25 #15 to soon for refill. * Telephone Encounter - Farnki Garcia - 06/09/2025 11:23 AM EST TC from pt requesting medication refill. Medications needing refill : zolpidem (Ambien) 10 MG tablet To be sent to: [facility]/pharmacy #[id number] documented in this encounter Plan of Treatment Upcoming Encounters Date Type Department Care Team ([facility] st Contact Info) Description 07/22/2025 10:15 AM EST Office Visit [facility] MEDICINE [address] [place] [address] Name, MD Nestor [address] [place] [address] documented as of this encounter Visit Diagnoses Not on filedocumented in this encounter Additional Health Concerns Assessment Noted Time PHQ-9 Depression Total Score: 22 025 11:19 AM EDT documented as of this encounter Care Teams Therapist Asst Relationship Specialty Start Date End Date Missy Mcwilliams MD [address] [place] [address] PCP - General Family Medicine 03/31/25 06/18/25 Name, MD Nestor [address] [place] [address] PCP - General Internal Medicine 06/19/25 documented as of this encounter
--- OUTSIDE RECORDS SUMMARY | 2025-07-11 12:58 | XMS_ITS | Clinical Summary ---
Author Organization [employer] Address [address] [place] [address] 7t [place] [address] Care Team Providers Care Maintenance Mechanic Supervisor Name Role Phone Name, Nestor SMITH Primary Care Provider [phone] Allergies No known active allergies Medications * This document contains information received from the source organization and may not represent a complete record from that organization. albuterol 108 (90 Base) MCG/ACT inhaler Inhale 2 puffs every 4 (four) hours if needed for wheezing. 18 g Active amLODIPine (Norvasc) 10 MG tablet Take [...] by mouth Once per day. 90 tablet 025 Active montelukast (Singulair) 10 MG tablet [...] becomes available. 2 each 2 2025 Active Blood Pressure kit 1 Units Once per day. 1 kit Active zolpidem (Ambien) 10 MG tablet TAKE 1 TABLET BY MOUTH AT BEDTIME NEEDED FOR SLEEP 28 tablet 1 Active oxyCODONE (Roxicodone) 10 MG immediate release tabletIndication s:Lumbar radiculopathy Take 1 tablet (10 mg) by mouth every 6 (six) hours if needed for severe pain for up to 28 days. Do not start before July 01, 2025. 112 tablet 025 2024 Active oxyCODONE (Roxicodone) 10 MG immediate release tabletIndication s:Lumbar radiculopathy Take 1 tablet (10 mg) by mouth every 6 (six) hours if needed for severe pain for up to 28 days. 112 tablet 025 2024 Discontinued(R eorder (will not trigger notification to Pharmacy)) oxyCODONE (Roxicodone) 10 MG immediate release tabletIndication s:Lumbar radiculopathy Take 1 tablet (10 mg) by mouth every 6 (six) hours if needed for severe pain for up to 28 days. 112 tablet 025 2024 Discontinued(R eorder (will not trigger notification to Pharmacy)) Hospital, Clinic, or Other Facility Administered Medication [...] organization. Date Type Department Care Team Description 06/26/2025 11:30 AM EST Office Visit [facility] MED & PEDS [address] [place] [address] Chad Sams MD Lumbar disc disease with radiculopathy (Primary Dx) 06/26/2025 Travel 06/19/2025 1:00 PM EST Clinical Support [facility] MED [facility] PEDS [address] [place] [address] Mirta Valerio, promotions specialist right shoulder pain (Primary Dx) 06/19/[address] [address] Missy Mcwilliams MD Nurse Triage 06/19/2025 Travel 06/19/2025 Telephone [facility] MED & PEDS [address] [place] [address] Mirta Valerio, ENZO 06/18/2025 Telephone [facility] MED & PEDS [address] [place] [address] Missy Mcwilliams MD 06/16/2025 Refill [facility] P[facility] [address] [place] [address] Mirta Valerio, ENZO Lumbar radiculopathy 06/16/[address] [address] Missy Mcwilliams MD Med Refill; Prior Auth Prescription 06/16/[address] [address] Missy Mcwilliams MD Med Refill; Prior Auth Prescription 06/16/2025 Patient Outreach [address] [address] Missy Mcwilliams MD Care Coordination (CHW outreach for SDOH PT-1 and food needs-LVM to call back ) 06/15/2025 Orders Only [facility] External Provider, [facility] 06/13/2025 1:40 PM EST Office Visit [facility] [address] [place] [address] Laquey, Megan, SENIOR EMBEDDED SOFTWARE ENGINEER Lumbar radiculopathy (Primary Dx); Chronic right shoulder pain; Housing insecurity 06/13/2025 Travel 06/10/[address] [address] Missy Mcwilliams MD call back 06/09/[address] [address] Missy Mcwilliams MD Medication Question 06/09/[address] [address] Missy Mcwilliams MD Med Refill 06/04/[address] [address] Missy Mcwilliams MD Prior Authorization 06/02/2025 11:00 AM EDT Office Visit [facility] MED & PEDS [address] [place] [address] Missy Mcwilliams MD Long-term current use of opiate analgesic (Primary Dx); Lumbar radiculopathy; Periumbilical hernia 06/02/2025 Travel 05/30/2025 Telephone [facility] MED [facility] P[facility] [address] [place] [address] Missy Mcwilliams MD Chart Prep 05/29/[address] [address] Missy Mcwilliams MD Med Refill 05/27/2025 Telephone [facility] MED [facility] PED[facility] [address] [place] [address] Missy Mcwilliams MD Change PCP 05/22/[address] [address] Missy Mcwilliams MD Med Refill 05/22/[address] [address] Missy Mcwilliams MD Med Refill 05/22/2025 Refill [facility] [address] [place] [address] Missy Mcwilliams MD 05/21/2025 Refill [facility] MED [facility] P[facility] [address] [place], [place] [phone] Missy Mcwilliams MD 05/21/2025 Refill [facility] [address] [place], [place] [phone] Missy Mcwilliams MD Lumbar radiculopathy 05/15/2025 3:00 PM EDT Clinical Support [facility] [address] [place], [place] [phone] Mirta Valerio, ENZO Lumbar radiculopathy (Primary Dx); Long-term current use of opiate analgesic 05/15/2025 Travel 05/14/2025 Telephone [facility] MED [facility] PED[facility] [address] [place], [place] [phone] Missy Mcwilliams MD Referral 05/09/2025 Orders Only [facility] [address] [place], [place] [phone] Luiza Resendiz MD 05/09/2025 Refill [facility] [address] [place], [place] [phone] Missy Mcwilliams MD Lumbar radiculopathy (Primary Dx) 05/05/2025 Telephone [facility] PED[facility] [address] [place], [place] [phone] Missy Mcwilliams MD Prior Authorization 05/05/2025 Telephone [facility] P[facility] [address] [place] [address] Missy Mcwilliams MD Med Refill 04/28/2025 Refill [facility] P[facility] [address] [place] [address] Missy Mcwilliams MD 04/15/2025 Telephone [facility] MED [facility] P[facility] [address] [place] [address] Mirta Valerio RN 04/15/2025 Telephone [facility] MED [facility] P[facility] [address] [place] [address] Mirta Valerio RN 04/14/2025 Telephone [facility] P[facility] [address] [place] [address] Mirta Valerio RN 04/14/2025 Telephone [facility] P[facility] [address] [place] [address] Mirta Valerio RN 04/11/2025 Telephone [facility] MED [facility] PEDS [address] [place] [address] Mirta Valerio, flight purser Question from Last 3 Months Family History Medical [...] Sign Reading Time Taken Comments Blood Pressure 154/98 06/26/2025 11:30 AM EST Pulse 72 06/26/2025 11:30 AM EST Temperature 37.1 C (98.7 F) 06/26/2025 11:30 AM EST Respiratory Rate 20 06/26/2025 11:30 AM EST Oxygen Saturation 98% 06/02/2025 11:16 AM EDT Inhaled Oxygen Concentration - - Weight 88.9 kg (196 lb) 06/26/2025 11:30 AM EST Height 167.6 cm (5' 6 ) 06/26/2025 11:30 AM EST Body Mass Index 31.64 06/26/2025 11:30 AM EST Plan of Treatment Upcoming Encounters Date Type Department Care Team (Late st Contact Info) Description 07/22/2025 10:15 AM EST Office Visit [facility] [address] [place] [address] Name, MD Nestor [address] [place] [address] Health Maintenance Due Date Last Done Comments [...] Screening 06/02/2026 06/02/2025 COVID-19 Vaccine (1 - 2024-2 6 season) 2026 Postponed from 04/07 (Patient Refused) [...] Comments POCT JAZLYN-14 URINE DRUG SCREEN Routine 06/19/2025 1:41 PM EST Chronic right shoulder pain XR LUMBAR SPINE 2-3 VIEWS Routine 06/15/2025 4:05 PM EST XR HIP RIGHT WITH PELVIS 1 VIEW Routine 06/15/2025 4:03 PM EST POCT JAZLYN-14 URINE DRUG SCREEN Routine 05/15/2025 3:13 PM EDT Lumbar radiculopathy from Last 3 Months Results * (ABNORMAL) POCT JAZLYN-14 Urine Drug Screen (06/19/2025 1:41 PM EST) Only the most recent of2 resultswithin the time period is included. THC Negative Negative Cocaine Screen, Urine Negative Negative Opiate Screen, Urine Negative Negative Methamphetamine Screen Urine Negative Negative Amphetamine Screen, Urine Negative Negative Benzodiazepines Screen, Urine Positive(A) Negative Comment:Rx from psych. Barbiturate Screen, Urine Negative Negative Methadone Screen, Urine Negative Negative Buprenophine Screen, Urine Negative Negative TCA, Urine Negative Negative MDMA Urine Negative Negative ng/mL Oxycodone Screen, Urine Positive(A) Negative Comment:Rx Phencyclidine (PCP), Urine Negative Negative Propoxyphene, Urine Negative Negative Fentanyl, Urine Negative Negative Urine Urine specimen obtained by clean catch procedure / Unknown 06/19/2025 1:41 PM EST Narrative Mirta Valerio RN - 06/19/2025 1:41 PM EST . Internal Pass Control Lot# [id number] Exp: 05-13-26 us Missy Mcwilliams MD POINT OF CARE TEST ENTER/EDIT ORDERABLES Final Result * XR Lumbar Spine 2-3 Views (06/15/2025 4:05 PM EST) Anatomical Region Laterality Modality Spine, L-spine Radiographic Jessica ging 06/15/2025 4:05 PM EST Narrative 06/15/2025 4:06 PM EST [place] [address] XRay Report Signed Patient: Tino Phillips MR#: [id number] : 1965 Acct:[id number] Age/Sex: 59 / M ADM Date: 06/15/25 Loc: HO.ED Attending Dr: Ordering Physician: Colton Solis Date of Service: 06/15/25 Procedure(s): XR lumbar spine 2-3V Accession Number(s): [id number] cc: Colton Solis; Missy Mcwilliams MD Reason [...] in OV> 06/15/25 1605 DD/ 1605 TD/TT: 06/15/251604 Crime Victim Specialist: Procedure Note Donotuseinterpreter, Image - 06/15/2025 [place] [address] XRay Report Signed Patient: Renu Phillips#: [id number] : 1965Acct:[id number] Age/Sex: 59 / MADM Date: 06/15/25 Loc: HO.ED Attending Dr: Ordering Physician: Colton Solis Date of Service: 06/15/25 Procedure(s): XR lumbar spine 2-3V Accession Number(s): [id number] cc: Colton Solis; Missy Mcwilliams MD Reason [...] 06/15/25 1605 DD/ 1605 TD/TT: 06/15/25 1605 Crime Victim Specialist: us [facility] External Provider IMG XR PROCEDURES Edited Result - Final * XR Hip right with Pelvis 1 view (06/15/2025 4:03 PM EST) Anatomical Region Laterality Modality Lower Extremities, Hip Bilateral Radiograp hic Imaging 06/15/2025 4:03 PM EST Narrative 06/15/2025 4:05 PM EST [address] [address] XRay Report Signed Patient: Tino Phillips MR#: [id number] : 1965 Acct:[id number] Age/Sex: 59 / M ADM Date: 06/15/25 Loc: HO.ED Attending Dr: Ordering Physician: Colton Solis Date of Service: 06/15/25 Procedure(s): XR hip RT w PEL1V Accession Number(s): [id number] cc: Colton Solis; Missy Mcwilliams MD Reason [...] 06/15/25 1604 DD/ 1603 TD/TT: 06/15/25 1603 Crime Victim Specialist: Procedure Note Donotuseinterpreter, Image - 06/15/[address] [address] XRay Report Signed Patient: Tino PhillipsMR#: [id number] : 1965Acct:[id number] Age/Sex: 59 / MADM Date: 06/15/25 Loc: HO.ED Attending Dr: Ordering Physician: Colton Solis Date of Service: 06/15/25 Procedure(s): XR hip RT w PEL1V Accession Number(s): [id number] cc: Colton Solis; Missy Mcwilliams MD Reason [...] Sierra MD in OV> 06/15/25 1604 DD/ 160 TD/TT: 06/15/251602 Crime Victim Specialist: [facility] External Provider IMG XR PROCEDURES Edited Result - Final from Last 3 Months Insurance STANDARD Care Teams Maintenance Mechanic Supervisor Relationship Specialty Start Date End Date Name, MD Nestor [address] [place] [address] PCP - General Internal Medicine 06/19/25
--- OUTSIDE RECORDS SUMMARY | 2025-07-11 13:04 | XMS_ITS | Encounter Summary ---
Author Organization [employer] Address [address] [place] [address] 7 [place] [address] Care Team Providers Care Risk Analyst Name Role Phone Missy Mcwilliams MD Primary Care Provider [phone] Nestor Lofton MD Primary Care Provider [phone] Reason for Visit * Reason Onset Date Comments Med Refill 05/22/2025 Encounter Details Date Type Department Care Team ([facility] st Contact Info) Description 05/22/2025 Telephone [facility] MEDICINE [address] [place] [address] Missy Mcwilliams MD [address] [place] [address] Med Refill Social History Tobacco Use Types [...] 15 tablets of zolpidem (Ambien) 10 mg toC pharmacy. documented in this encounter Plan of Treatment Upcoming Encounters Date Type Department Care Team (Late st Contact Info) Description 07/22/2025 10:15 AM EST Office Visit [facility] MEDICINE [address] [place] [address] Nestor Lofton MD [address] [place] [address] documented as of this encounter Visit Diagnoses Not on filedocumented in this encounter Care Teams Risk Analyst Relationship Specialty Start Date End Date Missy Mcwilliams MD [address] [place] [address] PCP - General Family Medicine 03/31/25 06/18/25 Nestor Lofton MD [address] [place] [address] PCP - General Internal Medicine 06/19/25 documented as of this encounter
== END 2025-07-11 11:41 | disposition home or self-care (01) ==
PROVIDERS: PCP Family Medicine; Visit Provider Internal Medicine
DX: M54.16 Radiculopathy, lumbar region (principal); M54.51 Vertebrogenic low back pain
CPT/HCPCS: 99214

== ENCOUNTER → 2025-07-11 10:47 | Outpatient (BNVA) | payer MEDICAID, SELFPAY | PROVIDERS: PCP Family Medicine; Visit Provider Internal Medicine | DX: M54.16 Radiculopathy, lumbar region (principal); M54.51 Vertebrogenic low back pain | CPT/HCPCS: 99212 ==

== ENCOUNTER 2025-07-14 10:59 | Outpatient (AMB) | payer MEDICAID, SELFPAY ==
--- NOTE | 2025-07-14 11:04 | A.OFFVIS_ITS ---
Vital Signs 3 07/14/25 11:14 Height 5 ft 7 in Weight 197 lb BMI 30.9 BP 158/99 H Blood Pressure Location Lt brachial Position Sitting Pulse 97 Intake Visit Reasons: Periumbilical hernia Intake Note: Patient is seen in office for evaluation of a periumbilical hernia. Pt c/o: had a fall in September and since feels a lump in the umbilical area, denies increase/decrease, discomfort to the touch, denies any concerns Bow Maker Production Required: No Accompanied by: Self / Same As Patient Allergies No Known Allergies Allergy (Verified 07/14/25 11:09) Medication List - Last Reconciled 07/14/25 by Edmund Karimi MD albuterol sulfate 90 mcg/actuation (Ventolin HFA) 2 puffs inhalation Q6H PRN capsaicin 0.025% 1 patch topical BID PRN diazepam (Valium) 2 mg PO TID 2 days oifglbajtzx-evexwrrlc-ktbmdwgk 100-62.5-25 mcg (Trelegy Ellipta) 1 inh inhalation DAILY montelukast 10 mg PO BEDTIME oxycodone 5 mg PO QID PRN tizanidine 4 mg PO Q8H PRN zolpidem (Ambien) 10 mg PO BEDTIME PRN HPI Comments Details: 59-year-old male patient presenting for evaluation of an umbilical hernia. Only recently noted the hernia when he developed abdominal pain in the periumbilical region. He reports falling at work resulting in injury to his right chest with rib fractures and back injury. He also needs to care for his with multiple medical issues. 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 He denies any previous umbilical surgery and denies nausea, vomiting, fever or chills. He reports his blood pressure is elevated because of the pain he is experiencing. He is requesting repair of this umbilical hernia. [facility] Medical History GERD (gastroesophageal reflux disease) Asthma Insomnia Hypertension Chronic pain of both shoulders Osteoarthritis of both knees Left wrist pain Cervical pain Chronic low back pain Lumbar degenerative disc disease Lumbar radiculopathy Lumbar spinal stenosis Surgical History History of carpal tunnel surgery of right wrist Review of Systems Const All systems reviewed & are unremarkable except as noted in HPI and below Musc Reports back pain and Reports myalgias Physical Exam Vital Signs: Last Vital Signs Pulse 97 07/14/25 11:14 BP 158/99 H 07/14/25 11:14 BMI result Body Mass Index 30.9 Const General: cooperative and no acute distress Nutritional Appearance: well nourished Orientation/consciousness: patient oriented x3 Limitations: ambulation with cane HEENT Head: Yes normocephalic and Yes atraumatic Ears: hearing grossly normal bilaterally Resp Effort & Inspection: normal respiratory effort, no audible wheezes, no cough and no respiratory distress Cardio Jugular venous distension: no JVD GI Other: Soft, nondistended, easily identified umbilical hernia in the lower portion of the umbilicus, increases with Valsalva maneuvers, reduces with light pressure., moderately tender to palpation. Inspection: Yes normal to inspection Abdomen image: 2 1. Reducible umbilical hernia approximately 3 cm diameter. Skin Other: Warm, dry, no rash Neuro General: patient oriented x3 Extrem General: Yes no clubbing, cyanosis or edema Assessment & Plan Assessment & Plan (1) Umbilical hernia: Code(s): K42.9 - Umbilical hernia without obstruction or gangrene Category: Medical Qualifiers: Obstruction and gangrene presence: without obstruction or gangrene Q ualified Code(s): K42.9 - Umbilical hernia without obstruction or gangrene Plan 59-year-old male patient presenting with a new onset umbilical hernia which is now symptomatic. On examination he does have a reducible umbilical hernia measuring approximately 3 cm in diameter. I recommended repair of this umbilical hernia with mesh and after discussion of the procedure, risks, and alternatives, he consents to surgery. This will be scheduled as a short-stay surgery. Orders: Referrals 2 General Surgery Procedure Notification K42.9 - Umbilical hernia without obstruction or gangrene Coding Level of Care Code New Pt Level 4 (36557) Diagnoses Umbilical hernia without obstruction and without gangrene K42.9 Obstruction and gangrene presence: without obstruction or gangrene
[2025-07-14 11:14] VITALS: BP 158/99; PULSE 97; BMI 30.9
== END 2025-07-14 11:58 | disposition home or self-care (01) ==
PROVIDERS: PCP Family Medicine; Visit Provider Surgery
DX: K42.9 Umbilical hernia without obstruction or gangrene (principal)
CPT/HCPCS: 99204

== ENCOUNTER → 2025-07-14 10:59 | Outpatient (BNVA) | payer MEDICAID, SELFPAY | PROVIDERS: PCP Family Medicine; Visit Provider Surgery | DX: K42.9 Umbilical hernia without obstruction or gangrene (principal) | CPT/HCPCS: 99202 ==

== ENCOUNTER → 2025-08-05 07:47 | Outpatient (BNV) | payer MEDICAID, SELFPAY | PROVIDERS: PCP Family Medicine; Visit Provider Radiology Diagnostic Radiology | DX: M47.812 Spondylosis without myelopathy or radiculopathy, cervical region (principal); M50.323 Other cervical disc degeneration at C6-C7 level | CPT/HCPCS: 72141 ==

== ENCOUNTER 2025-08-05 08:05 | Outpatient (REF) | payer MEDICAID, SELFPAY ==
--- OUTSIDE RECORDS SUMMARY | 2025-05-27 08:15 | XMS_ITS ---
Author Organization [facility] Address [address] [place] [address] Care Team Providers Care Senior Construction Estimator Name Role Phone JOSÉ MIGUEL VILLEGAS Primary Care Provider CHANTAL DALLAS Unavailable [phone] Allergies No Known Allergies REASON FOR VISIT [...] HOURS PRN; Duration: 30 days Unknown Sutab 4492-007-507 MG Tablet 12 tablets the first dose [...] days Unknown Vitamin D (Ergocalciferol) 1.25 MG (07567 UT) Capsule TAKE 1 CAPSULE BY MOUTH [...] smoking Encounters Encounter Location Date Provider Diagnosis [place] [address] [place] [address] 05/27/2025 JOSÉ MIGUEL VILLEGAS Lumbar radiculopathy M54.16 [...] dependence, sedation, constipation, and respiratory depression. The WET CLEANER MACHINE I-STOP was reviewed to ensure appropriate use [...] times daily for chronic pain management. The WET CLEANER MACHINE I-STOP was reviewed for appropriate use. 2. [...] dependence, sedation, constipation, and respiratory depression. The WET CLEANER MACHINE I-STOP was reviewed to ensure appropriate use [...] times daily for chronic pain management. The WET CLEANER MACHINE I-STOP was reviewed for appropriate use. 2. [...] if new symptoms or concerns arise. 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 The WET CLEANER MACHINE I-STOP was reviewed to ensure appropriate use [...] times daily for chronic pain management. The WET CLEANER MACHINE I-STOP was reviewed for appropriate use. 2. [...] dependence, sedation, constipation, and respiratory depression. The WET CLEANER MACHINE I-STOP was reviewed to ensure appropriate use [...] times daily for chronic pain management. The WET CLEANER MACHINE I-STOP was reviewed for appropriate use. 2. [...] dependence, sedation, constipation, and respiratory depression. The WET CLEANER MACHINE I-STOP was reviewed to ensure appropriate use [...] times daily for chronic pain management. The WET CLEANER MACHINE I-STOP was reviewed for appropriate use. 2. [...] with IV and PO contrast for evaluation. terminal computer operator current use of opiate analgesi c iStop [...] Details Follow Up: post CT results, Reason: History and Physical Notes * HPI (History [...] acute complaints were reported. Progress Notes * Tino CERVANTESDOB:1965 ([age] yo M)Acc No.[id number]:05/27/2025 progress notes Patient: Tino Art Provider: Brodie VILLEGAS MD :1965 A ge:59 Y S ex:Male Date:05/27/2025 Address:[address] [place] [address] [address], [address], [facility] Check Out:02:28 PM EST Subjective: * Chief Complaints: * R equests pain medicationAlso, reports abdominal pain and requests imaging. [employer] - Start 1. Sleep [...] - - - -2. Last Colonoscopy: 01/19/2018 [employer] - End * HPI: H PI: [...] day Spirometer - Kit as directed Sutab 6338-213-502 MG Tablet 12 tablets the first dose the evening before and second dose the morning of colonoscopy Orally Twice a day tiZANidine HCl 4 MG Tablet TAKE 1 TABLET BY MOUTH THREE TIMES A DAY Trelegy Ellipta 100-62.5-25 MCG/ACT Aerosol Powder Breath Activated 1 puff Inhalation Once a day Vitamin D (Ergocalciferol) 1.25 MG (17354 UT) Capsule TAKE 1 CAPSULE BY MOUTH [...] Spirometer - Kit as directed Unknown Sutab [id number] MG Tablet 12 tablets the first dose the evening before and second dose the morning of colonoscopy Orally Twice a day Unknown tiZANidine HCl 4 MG Tablet TAKE 1 TABLET BY MOUTH THREE TIMES A DAY Unknown Trelegy Ellipta 100-62.5-25 MCG/ACT Aerosol Powder Breath Activated 1 puff Inhalation Once a day Unknown Vitamin D (Ergocalciferol) 1.25 MG (26701 UT) Capsule TAKE 1 CAPSULE BY MOUTH ONE TIME PER WEEK FOR 90 DAYS Unknown Zithromax Z-Kody 250 MG Tablet 2 tablets on the first day, then 1 tablet daily for 4 days Orally Once a day Medication List reviewed and reconciled with the patient * Allergies: N .K.Jeet.CynthiayesAllergies Verified. Assessment: * Assessment: 1. L umbar [...] dependence, sedation, constipation, and respiratory depression. The WET CLEANER MACHINE I-STOP was reviewed to ensure appropriate use [...] times daily for chronic pain management. The WET CLEANER MACHINE I-STOP was reviewed for appropriate use. 2. [...] the presence of José Miguel Villegas MD IJosé Miguel personally performed the services described in this documentation. All medical record entries made by the scribe were at my direction and in my presence. I have reviewed the chart and discharge instructions and agree that the record reflects my personal performance and is accurate and completed. Electronically Signed: José Miguel Villegas MD Clinical Notes: By signing my name below, ISyeda, attest that this documentation has been supervised by me under the direction and in the presence of José Miguel Villegas MD Electronically Signed: Syeda Roe * Follow Up: p ost CT results Billing Information: * Procedure Codes: * Electronic signature of WILLIAMS VILLEGAS MD, [id number] on 08/05/2025 at 09:34 AM EST Sign off status: Pending * Provider: Brodie VILLEGAS MD Date: Generated for Lalita castro/Florian/Srinivasasmitting on: 09:34 AM EST
--- OUTSIDE RECORDS SUMMARY | 2025-05-29 08:00 | XMS_ITS ---
Author Organization [facility] Address [address] [place] [address] Care Team Providers Care Sales And Merchandising Associate Name Role Phone BEBETO VILLEGAS Primary Care Provider CHANTAL DALLAS Unavailable [phone] Abdomen/Pelvis w* Encounters Encounter Location Date Provider Diagnosis [address] [place] [address] 05/29/2025 BEBETO VILLEGAS Plan Of Treatment No Information Progress Notes * Tino CERVANTESDOB:1965 ([age] yo M)Acc No.[id number]:05/29/2025 Progress Note Patient: Tino Art Provider: Brodie VILLEGAS MD :1965 A ge:59 Y S ex:Male Date:05/29/2025 Address:[address], [address], [facility] Subjective: * Chief Complaints: * C T Abdomen/Pelvis w* * Electronic signature of WILLIAMS VILLEGAS MD, [id number] on 08/05/2025 at 09:32 AM EST Sign off status: Pending * Provider: Brodie VILLEGAS MD Date: Generated for Printi ng/Faxing/eTransmitting on: 1 09:32 AM EST
--- OUTSIDE RECORDS SUMMARY | 2025-06-02 10:00 | XMS_ITS ---
Author Organization [facility] Address [address] [place] [address] Care Team Providers Care Electrician Apprentice Name Role Phone JOSÉ MIGUEL VILLEGAS Primary Care Provider CHANTAL DALLAS Unavailable [phone] Allergies No Known Allergies REASON FOR VISIT Requesting routine bw Medications Medication SIG (Take, Route, Frequency, Duration) Notes Start Date End Date Status Sutab 0993-966-148 MG Tablet 12 tablets the first dose the evening before and second dose the morning of colonoscopy Orally Twice a day; Duration: 1 days 10/25/2024 Active tiZANidine HCl 4 MG Tablet TAKE 1 TABLET BY MOUTH THREE TIMES A DAY; Duration: 30 Active Trelegy Ellipta 100-62.5-25 MCG/ACT Aerosol Powder Breath Activated 1 puff Inhalation Once a day; Duration: 30 days 07/26/2024 Active Vitamin D (Ergocalciferol) 1.25 MG (19604 UT) Capsule TAKE 1 CAPSULE BY MOUTH ONE TIME PER WEEK FOR 90 DAYS; Duration: 90 Active Naproxen 500 MG Tablet TAKE 1 TABLET BY MOUTH EVERY 12 HOURS; Duration: 30 Active oxyCODONE HCl 5 MG Tablet 1 tablet as ne eded Orally every 6 hrs Active Pataday 0.1 % Solution 1 drop into affec brittany eye Ophthalmic Twice a day; Duration: 10 days 11/26/2024 Active Spirometer - Kit as directed; Duratio n: 30 days 09/13/2024 Active Montelukast Sodium 10 MG Tablet TAKE 1 TABLET BY MOUTH EVERY DAY; Duration: 90 Active Gabapentin 400 MG Capsule 1 capsule Oral ly Twice a day; Duration: 90 days Active GaviLyte-C 240 GM Solution Reconstituted milliliter Orally prescribe; Duration: 1 days 10/25/2024 Active Lisinopril 5 MG Tablet 1 tablet Orally O nce a day; Duration: 90 days 11/11/2024 Active Azelastine HCl 137 MCG/SPRAY Solution 2 puffs (1 spray in each nostril) Nasally Twice a day; Duration: 30 days 11/26/2024 Active Azelastine HCl 137 MCG/SPRAY Solution 1 puff in each nostril Nasally Twice a day; Duration: 30 days Active Ambien 10 MG Tablet 1 tablet at bedtime as needed Orally Once a day; Duration: 30 days 05/27/2025 06/26/2025 Active oxyCODONE HCl 10 MG Tablet 1 tablet as needed Orally 3 times a day; Duration: 30 days max daily dose: 3 tablets 05/27/2025 06/25/2025 Active Albuterol Sulfate HFA 108 (90 Base) MCG/ACT Aerosol Solution INHALE 1 PUFF INTO THE LUNGS EVERY 4 HOURS PRN; Duration: 30 days Active Social History Section Notes: denies smoking Vital Signs Height 67 in 06/02/2025 Weight 195 lbs 06/02/2025 BMI 30.54 kg/m2 06/02/2025 Weight-kg 88.45 kg 06/02/2025 Encounters Encounter Location Date Provider Diagnosis [address] [place] [address] 06/02/2025 JOSÉ MIGUEL ENLLY Abdominal pain R10.8 4 ; Essential hypertension I10 and Medication management Z79.899 Assessments Encounter Date Diagnosis (ICD Code) Assessment Notes Treatment Notes Treatment Clinical Notes Section Notes 06/02/2025 Essential hypertension (ICD-10 - I10) - Ordered labs: C-reactive protein, magnesium, PSA, TSH, vitamin D, comprehensive metabolic panel, lipid panel, ESR, hemoglobin A1c, and CBC with differential. Medical Decision Making (MDM) and Treatment Plan: The patient was evaluated for ongoing management of hypertension, abdominal pain, and medication monitoring. His medication list was reviewed and reconciled. Orders were placed for a comprehensive laboratory workup, including C-reactive protein, magnesium, PSA, TSH, vitamin D, comprehensive metabolic panel, lipid panel, ESR, hemoglobin A1c, and CBC with differential. Given his ongoing abdominal pain, he was advised to schedule a CT abdomen/pelvis with IV and PO contrast for further evaluation. The importance of medication adherence, regular follow-up, and ongoing monitoring for side effects was emphasized. Strategies to improve adherence, such as using a pill organizer or setting reminders, were discussed. He was instructed to follow up after labs and imaging or sooner if new symptoms or concerns arise. 1. Ordered comprehensive lab workup for hypertension and metabolic assessment. 2. Advised scheduling CT abdomen/pelvis with IV and PO contrast for evaluation of abdominal pain. 3. Reviewed and updated medication list; provided education on adherence strategies. 4. Emphasized medication adherence, regular follow-up, and monitoring for new or worsening symptoms. 5. Instructed to follow up after labs and imaging for further management. 06/02/2025 Abdominal pain (ICD-10 - R10.84) - Advised to schedule CT abdomen/pelvis with IV and PO contrast for further evaluation. Medical Decision Making (MDM) and Treatment Plan: The patient was evaluated for ongoing management of hypertension, abdominal pain, and medication monitoring. His medication list was reviewed and reconciled. Orders were placed for a comprehensive laboratory workup, including C-reactive protein, magnesium, PSA, TSH, vitamin D, comprehensive metabolic panel, lipid panel, ESR, hemoglobin A1c, and CBC with differential. Given his ongoing abdominal pain, he was advised to schedule a CT abdomen/pelvis with IV and PO contrast for further evaluation. The importance of medication adherence, regular follow-up, and ongoing monitoring for side effects was emphasized. Strategies to improve adherence, such as using a pill organizer or setting reminders, were discussed. He was instructed to follow up after labs and imaging or sooner if new symptoms or concerns arise. 1. Ordered comprehensive lab workup for hypertension and metabolic assessment. 2. Advised scheduling CT abdomen/pelvis with IV and PO contrast for evaluation of abdominal pain. 3. Reviewed and updated medication list; provided education on adherence strategies. 4. Emphasized medication adherence, regular follow-up, and monitoring for new or worsening symptoms. 5. Instructed to follow up after labs and imaging for further management. 06/02/2025 Medication management (ICD-10 - Z79.899) Review and update the patient's medication list. Educate the patient on the importance of medication adherence. Discuss strategies to improve adherence, such as using a pill organizer or setting reminders. Schedule a follow-up appointment to reassess medication effectiveness and adherence. Medical Decision Making (MDM) and Treatment Plan: The patient was evaluated for ongoing management of hypertension, abdominal pain, and medication monitoring. His medication list was reviewed and reconciled. Orders were placed for a comprehensive laboratory workup, including C-reactive protein, magnesium, PSA, TSH, vitamin D, comprehensive metabolic panel, lipid panel, ESR, hemoglobin A1c, and CBC with differential. Given his ongoing abdominal pain, he was advised to schedule a CT abdomen/pelvis with IV and PO contrast for further evaluation. The importance of medication adherence, regular follow-up, and ongoing monitoring for side effects was emphasized. Strategies to improve adherence, such as using a pill organizer or setting reminders, were discussed. He was instructed to follow up after labs and imaging or sooner if new symptoms or concerns arise. 1. Ordered comprehensive lab workup for hypertension and metabolic assessment. 2. Advised scheduling CT abdomen/pelvis with IV and PO contrast for evaluation of abdominal pain. 3. Reviewed and updated medication list; provided education on adherence strategies. 4. Emphasized medication adherence, regular follow-up, and monitoring for new or worsening symptoms. 5. Instructed to follow up after labs and imaging for further management. 06/02/2025 Other By signing my name below, Stu Rosales attest that this documentation has been prepared [...] Villegas MD By signing my name below, Syeda Rosales attest that this documentation has been supervised by me under the direction and in the presence of José Miguel Villegas MD Electronically Signed: Syeda Roe Medical Decision Making (MDM) and Treatment Plan: The patient was evaluated for ongoing management of hypertension, abdominal pain, and medication monitoring. His medication list was reviewed and reconciled. Orders were placed for a comprehensive laboratory workup, including C-reactive protein, magnesium, PSA, TSH, vitamin D, comprehensive metabolic panel, lipid panel, ESR, hemoglobin A1c, and CBC with differential. Given his ongoing abdominal pain, he was advised to schedule a CT abdomen/pelvis with IV and PO contrast for further evaluation. The importance of medication adherence, regular follow-up, and ongoing monitoring for side effects was emphasized. Strategies to improve adherence, such as using a pill organizer or setting reminders, were discussed. He was instructed to follow up after labs and imaging or sooner if new symptoms or concerns arise. 1. Ordered comprehensive lab workup for hypertension and metabolic assessment. 2. Advised scheduling CT abdomen/pelvis with IV and PO contrast for evaluation of abdominal pain. 3. Reviewed and updated medication list; provided education on adherence strategies. 4. Emphasized medication adherence, regular follow-up, and monitoring for new or worsening symptoms. 5. Instructed to follow up after labs and imaging for further management. Plan Of Treatment Treatment Notes Assessment Notes Essential hypertension - Ordered labs: C -reactive protein, magnesium, PSA, TSH, vitamin D, comprehensive metabolic panel, lipid panel, ESR, hemoglobin A1c, and CBC with differential. Abdominal pain - Advised to schedul e CT abdomen/pelvis with IV and PO contrast for further evaluation. Medication management Review and update the patient's medication list. Educate the patient on the importance of medication adherence. Discuss strategies to improve adherence, such as using a pill organizer or setting reminders. Schedule a follow-up appointment to reassess medication effectiveness and adherence. Other By signing my name below, Stu [...] completed. Electronically Signed: José Miguel Villegas MD Future Test Test Name Order Date C-Reactive Protein-[facility] 06/02/2025 Magnesium-[facility] 06/02/2025 PSA Antigen-[facility] 06/02/2025 Thyroid Stimulating Hormone 2-Mzbch-Ovzq l[facility] 06/02/2025 Vitamin D Total-[facility] 06/02/2025 Comp Metabolic Panel (14)-[facility] 06/02 Lipid Panel-[facility] 06/02/2025 Hemoglobin A1c * 80135 06/09/2025 ESR (sed rate) * 89236 06/09/2025 CBC W/DIFF with Refx to Retic (new) IN H OUSE *2116* 06/09/2025 Next Appt Details Follow Up: post BW results, Reason: History and Physical Notes * HPI (History of Present Illness) Category Sub-Category Detail Notes Category Not es HPI The patient is a 59 years old male presenting via telemedicine for routine laboratory work and ongoing management of essential hypertension and abdominal pain. He requests routine blood work and is currently taking albuterol HFA, Ambien, azelastine, gabapentin, lisinopril, montelukast, naproxen, oxycodone (5 mg and 10 mg as needed), Pataday, spirometer, Sutab (for colonoscopy prep), tizanidine, Trelegy Ellipta, and vitamin D. He does not schedule his CT abdomen/pelvis yet for the evaluation of his abdominal pain. He denies chest pain, palpitations, shortness of breath, or dizziness, but reports intermittent abdominal pain. No other acute complaints were reported. Progress Notes * HELEN TinoDOB:1965 ([age] yo M)Acc No.[id number]:06/02/2025 progress notes Patient: Tino Art Provider: Brodie VILLEGAS MD :1965 A ge:59 Y S ex:Male Date:06/02/2025 Address:[address] [place] [address] [address], [address] [place], [place] [id number] Check Out:03:37 PM EST Subjective: * Chief Complaints: * R equesting routine bw * HPI: H PI: The patient is a 59 years old male presenting via telemedicine for routine laboratory work and ongoing management of essential hypertension and abdominal pain. He requests routine blood work and is currently taking albuterol HFA, Ambien, azelastine, gabapentin, lisinopril, montelukast, naproxen, oxycodone (5 mg and 10 mg as needed), Pataday, spirometer, Sutab (for colonoscopy prep), tizanidine, Trelegy Ellipta, and vitamin D. He does not schedule his CT abdomen/pelvis yet for the evaluation of his abdominal pain. He denies chest pain, palpitations, shortness of breath, or dizziness, but reports intermittent abdominal pain. No other acute complaints were reported. * [...] Orally Once a day , stop date 06/26/2025zelastine HCl 137 MCG/SPRAY Solution 2 puffs (1 [...] BY MOUTH EVERY 12 HOURS oxyCODONE HCl 10 MG Tablet 1 tablet as needed Orally 3 times a day max daily dose: 3 tablets, stop date 06/25/2025oxyCODONE HCl 5 MG Tablet 1 tablet as needed Orally every 6 hrs Pataday 0.1 % Solution 1 drop into affected eye Ophthalmic Twice a day Spirometer - Kit as directed Sutab 7763-922-847 MG Tablet 12 tablets the first dose the evening before and second dose the morning of colonoscopy Orally Twice a day tiZANidine HCl 4 MG Tablet TAKE 1 TABLET BY MOUTH THREE TIMES A DAY Trelegy Ellipta 100-62.5-25 MCG/ACT Aerosol Powder Breath Activated 1 puff Inhalation Once a day Vitamin D (Ergocalciferol) 1.25 MG (58023 UT) Capsule TAKE 1 CAPSULE BY MOUTH ONE TIME PER WEEK FOR 90 DAYS Taking Albuterol Sulfate HFA 108 (90 Base) MCG/ACT Aerosol Solution INHALE 1 PUFF INTO THE LUNGS EVERY 4 HOURS PRN Taking Ambien 10 MG Tablet 1 tablet at bedtime as needed Orally Once a day , stop date 06/26/2025Taking Azelastine HCl 137 MCG/SPRAY Solution 2 puffs (1 spray in each nostril) Nasally Twice a day Taking Azelastine HCl 137 MCG/SPRAY Solution 1 puff in each nostril Nasally Twice a day Taking Gabapentin 400 MG Capsule 1 capsule Orally Twice a day Taking GaviLyte-C 240 GM Solution Reconstituted milliliter Orally prescribe Taking Lisinopril 5 MG Tablet 1 tablet Orally Once a day Taking Montelukast Sodium 10 MG Tablet TAKE 1 TABLET BY MOUTH EVERY DAY Taking Naproxen 500 MG Tablet TAKE 1 TABLET BY MOUTH EVERY 12 HOURS Taking oxyCODONE HCl 10 MG Tablet 1 tablet as needed Orally 3 times a day max daily dose: 3 tablets, stop date 06/25/2025Taking oxyCODONE HCl 5 MG Tablet 1 tablet as needed Orally every 6 hrs Taking Pataday 0.1 % Solution 1 drop into affected eye Ophthalmic Twice a day Taking Spirometer - Kit as directed Taking Sutab 5284-668-896 MG Tablet 12 tablets the first dose the evening before and second dose the morning of colonoscopy Orally Twice a day Taking tiZANidine HCl 4 MG Tablet TAKE 1 TABLET BY MOUTH THREE TIMES A DAY Taking Trelegy Ellipta 100-62.5-25 MCG/ACT Aerosol Powder Breath Activated 1 puff Inhalation Once a day Taking Vitamin D (Ergocalciferol) 1.25 MG (92420 UT) Capsule TAKE 1 CAPSULE BY MOUTH ONE TIME PER WEEK FOR 90 DAYS DiscontinuedZithromax Z-Kody 250 MG Tablet 2 tablets on the first day, then 1 tablet daily for 4 days Orally Once a day Discontinued Zithromax Z-Kody 250 MG Tablet 2 tablets on the first day, then 1 tablet daily for 4 days Orally Once a day * Allergies: N .K.D.A.yesAllergies Verified. Objective: * Vitals: H t: 67 in, Wt-lb:195lbs, (Wt-kg): 88.45 kg, BMI:30.54Index. Assessment: * Assessment: 1. E ssential hypertension - I10 (Primary) 2 . A bdominal pain - R10.84? 3. M edication management - Z79.899 Medical Decision Making (MDM ) and Treatment Plan: The patient was evaluated for ongoing management of hypertension, abdominal pain, and medication monitoring. His medication list was reviewed and reconciled. Orders were placed for a comprehensive laboratory workup, including C-reactive protein, magnesium, PSA, TSH, vitamin D, comprehensive metabolic panel, lipid panel, ESR, hemoglobin A1c, and CBC with differential. Given his ongoing abdominal pain, he was advised to schedule a CT abdomen/pelvis with IV and PO contrast for further evaluation. The importance of medication adherence, regular follow-up, and ongoing monitoring for side effects was emphasized. Strategies to improve adherence, such as using a pill organizer or setting reminders, were discussed. He was instructed to follow up after labs and imaging or sooner if new symptoms or concerns arise. 1. Ordered comprehensive lab workup for hypertension and metabolic assessment. 2. Advised scheduling CT abdomen/pelvis with IV and PO contrast for evaluation of abdominal pain. 3. Reviewed and updated medication list; provided education on adherence strategies. 4. Emphasized medication adherence, regular follow-up, and monitoring for new or worsening symptoms. 5. Instructed to follow up after labs and imaging for further management. Plan: * Treatment: 2. A bdominal pain Notes: - Advised to schedule CT abdomen/pelvis with IV and PO contrast for further evaluation. 3. M edication management Notes: Review and update the patient's medication list. Educate the patient on the importance of medication adherence. Discuss strategies to improve adherence, such as using a pill organizer or setting reminders. Schedule a follow-up appointment to reassess medication effectiveness and adherence. 4. O thers Notes: By signing my name below, Stu Rosales, attfrank that this documentation has been prepared under [...] Villegas MD Electronically Signed: Syeda Roe * Procedure Codes: 3 008F BODY MASS INDEX [id number] Complex e/m visit add on * Follow Up: p ost BW results Billing Information: * Procedure Codes: 3008F BODY MASS INDEX DOCD. G2211 Complex e/m visit add on. * Electronic signature of WILLIAMS VILLEGAS MD, [id number] on 08/05/2025 at 09:32 AM EST Sign off status: Pending * Provider: Brodie VILLEGAS MD Date: 1 Generated for Lalita castro/Florian/Vincentitting on: 1 09:32 AM EST
--- OUTSIDE RECORDS SUMMARY | 2025-06-12 12:00 | XMS_ITS ---
Author Organization [facility] C Address [address] [place] [address] Care Team Providers Care Customer Support Agent Name Role Phone JOSÉ MIGUEL VILLEGAS Primary Care Provider [phone] CHANTAL DALLAS Unavailable [phone] Allergies No Known Allergies Reason For Referral Diagnosis 1 Lumbar radiculopathy (M54.16) Referral Organization [facility] Referring Provider First Name JOSÉ MIGUEL Referring Provider Last Name NELLY Referring Provider Speciality Internal M edicine Referred Organization [facility] Referred Provider FRANCESCA HANSON Referred Address [address],[place], [place],[address], Referred Provider Specialty Orthopedic S urgery Referral Priority Routine REASON FOR VISIT Medical management of lumbar radiculopathy, C/o right shoulder pain worse, Requesting Toradol and B12 injection Medications Medication SIG (Take, Route, Frequency, Duration) Notes Start Date End Date Status James Ellipta 100-62.5-25 MCG/ACT Aerosol Powder Breath Activated 1 puff Inhalation Once a day; Duration: 30 days 07/26/2024 Active Sutab [id number] MG Tablet 12 tablets the first dose the evening before and second dose the morning of colonoscopy Orally Twice a day; Duration: 1 days 10/25/2024 Active tiZANidine HCl 4 MG Tablet TAKE 1 TABLET BY MOUTH THREE TIMES A DAY; Duration: 30 Active Spirometer - Kit as directed; Bitao n: 30 days 09/13/2024 Active Vitamin D (Ergocalciferol) 1.25 MG (11142 UT) Capsule TAKE 1 CAPSULE BY MOUTH ONE TIME PER WEEK FOR 90 DAYS; Duration: 90 Active oxyCODONE HCl 10 MG Tablet 1 tablet as needed Orally 3 times a day; Duration: 30 days max daily dose: 3 tablets 05/27/2025 06/25/2025 Active oxyCODONE HCl 5 MG Tablet 1 tablet as ne eded Orally every 6 hrs Active Pataday 0.1 % Solution 1 drop into affec brittany eye Ophthalmic Twice a day; Duration: 10 days 11/26/2024 Active Montelukast Sodium 10 MG Tablet TAKE 1 TABLET BY MOUTH EVERY DAY; Duration: 90 Active Naproxen 500 MG Tablet TAKE 1 TABLET BY MOUTH EVERY 12 HOURS; Duration: 30 Active Azelastine HCl 137 MCG/SPRAY Solution 2 puffs (1 spray in each nostril) Nasally Twice a day; Duration: 30 days 11/26/2024 Active Azelastine HCl 137 MCG/SPRAY Solution 1 puff in each nostril Nasally Twice a day; Duration: 30 days Active Gabapentin 400 MG Capsule 1 capsule Oral ly Twice a day; Duration: 90 days Active GaviLyte-C 240 GM Solution Reconstituted milliliter Orally prescribe; Duration: 1 10/25/2024 Active Lisinopril 5 MG Tablet 1 tablet Orally O nce a day; Duration: 90 days 11/11/2024 Active Albuterol Sulfate HFA 108 (90 Base) MCG/ACT Aerosol Solution INHALE 1 PUFF INTO THE LUNGS EVERY 4 HOURS PRN; Duration: 30 days Active Ambien 10 MG Tablet 1 tablet at bedtime as needed Orally Once a day; Duration: 30 days 05/27/2025 06/26/2025 Active Social History Section Notes: denies smoking Encounters Encounter Location Date Provider Diagnosis [address] [place] [address] 06/12/2025 JOSÉ MIGUEL VILLEGAS Lumbar radiculopathy M54.16 ; Shoulder pain M25.512 and Encounter related to worker's compensation claim Z02.6 Assessments Encounter Date Diagnosis (ICD Code) Assessment Notes Treatment Notes Treatment Clinical Notes Section Notes 06/12/2025 Lumbar radiculopathy (ICD-10 - M54.16) Referral to orthopedic surgery for further evaluation and management was provided. Medical Decision Making (MDM) and Treatment Plan: The patient's lumbar radiculopathy and right shoulder pain were assessed. Referral to orthopedic surgery (Dr. Francesca Hanson) was provided for further evaluation and management of both conditions. Orders were placed for Toradol intramuscular injection (60 mg, pending) and vitamin B12 injection (up to 1000 mcg, pending) for symptomatic relief. The patient was counseled on the potential side effects of Toradol, including gastrointestinal upset, renal risks, and bleeding, especially in the setting of chronic NSAID use. The importance of adherence to prescribed medications, avoidance of overuse, and regular follow-up was emphasized. The patient was instructed to monitor for any new or worsening neurological symptoms, and to follow up in four weeks or sooner if symptoms progress. 1. Referral to orthopedic surgery for further evaluation of lumbar radiculopathy and right shoulder pain. 2. Orders placed for Toradol and vitamin B12 injections for symptomatic relief. 3. Medication management strategies reviewed and adherence reinforced. 4. Patient advised to monitor for new or worsening neurological symptoms. 5. Follow-up appointment scheduled in four weeks. 06/12/2025 Shoulder pain (ICD-10 - M25.512) Referral to orthopedic surgery for further evaluation was provided. Medical Decision Making (MDM) and Treatment Plan: The patient's lumbar radiculopathy and right shoulder pain were assessed. Referral to orthopedic surgery (Dr. Francesca Hanson) was provided for further evaluation and management of both conditions. Orders were placed for Toradol intramuscular injection (60 mg, pending) and vitamin B12 injection (up to 1000 mcg, pending) for symptomatic relief. The patient was counseled on the potential side effects of Toradol, including gastrointestinal upset, renal risks, and bleeding, especially in the setting of chronic NSAID use. The importance of adherence to prescribed medications, avoidance of overuse, and regular follow-up was emphasized. The patient was instructed to monitor for any new or worsening neurological symptoms, and to follow up in four weeks or sooner if symptoms progress. 1. Referral to orthopedic surgery for further evaluation of lumbar radiculopathy and right shoulder pain. 2. Orders placed for Toradol and vitamin B12 injections for symptomatic relief. 3. Medication management strategies reviewed and adherence reinforced. 4. Patient advised to monitor for new or worsening neurological symptoms. 5. Follow-up appointment scheduled in four weeks. 06/12/2025 Encounter related to worker's compensation claim (ICD-10 - Z02.6) The patient's work-related musculoskeletal complaints were addressed, and appropriate documentation and referrals were provided. Medical Decision Making (MDM) and Treatment Plan: The patient's lumbar radiculopathy and right shoulder pain were assessed. Referral to orthopedic surgery (Dr. Francesca Hanson) was provided for further evaluation and management of both conditions. Orders were placed for Toradol intramuscular injection (60 mg, pending) and vitamin B12 injection (up to 1000 mcg, pending) for symptomatic relief. The patient was counseled on the potential side effects of Toradol, including gastrointestinal upset, renal risks, and bleeding, especially in the setting of chronic NSAID use. The importance of adherence to prescribed medications, avoidance of overuse, and regular follow-up was emphasized. The patient was instructed to monitor for any new or worsening neurological symptoms, and to follow up in four weeks or sooner if symptoms progress. 1. Referral to orthopedic surgery for further evaluation of lumbar radiculopathy and right shoulder pain. 2. Orders placed for Toradol and vitamin B12 injections for symptomatic relief. 3. Medication management strategies reviewed and adherence reinforced. 4. Patient advised to monitor for new or worsening neurological symptoms. 5. Follow-up appointment scheduled in four weeks. 06/12/2025 Other By signing my name below, Prateek Rosales attest that this documentation has been [...] Decision Making (MDM) and Treatment Plan: The patient's lumbar radiculopathy and right shoulder pain were assessed. Referral to orthopedic surgery (Dr. Francesca Hanson) was provided for further evaluation and management of both conditions. Orders were placed for Toradol intramuscular injection (60 mg, pending) and vitamin B12 injection (up to 1000 mcg, pending) for symptomatic relief. The patient was counseled on the potential side effects of Toradol, including gastrointestinal upset, renal risks, and bleeding, especially in the setting of chronic NSAID use. The importance of adherence to prescribed medications, avoidance of overuse, and regular follow-up was emphasized. The patient was instructed to monitor for any new or worsening neurological symptoms, and to follow up in four weeks or sooner if symptoms progress. 1. Referral to orthopedic surgery for further evaluation of lumbar radiculopathy and right shoulder pain. 2. Orders placed for Toradol and vitamin B12 injections for symptomatic relief. 3. Medication management strategies reviewed and adherence reinforced. 4. Patient advised to monitor for new or worsening neurological symptoms. 5. Follow-up appointment scheduled in four weeks. Plan Of Treatment Treatment Notes Assessment Notes Lumbar radiculopathy Referral to orthope dic surgery for further evaluation and management was provided. Shoulder pain Referral to orthoped ic surgery for further evaluation was provided. Encounter related to worker' s compensation claim The patient's work-related musculoskelet al complaints were addressed, and appropriate documentation and referrals were provided. Other By signing my name below, Prateek Rosales, felix that this documentation has been [...] Miguel Villegas MD Electronically Signed: Syeda Roe Referrals Referral Date Details 06/12/2025 06/12/2025, FRANCESCA MAYER, [address], [place], [address], Next Appt Details Follow Up: 4 Weeks, , Reason : 4 week follow up for lumbar radiculopathy, shoulder pain, and medication review Medications Administered Medication Instructions Date of Administration Dosage Notes Toradol IM 06/12/2025 60 mg Vitamin B12 Injection up to 1000mcg 06/12/2025 History and Physical Notes * HPI (History of Present Illness) Category Sub-Category Detail Notes Category Not es HPI The patient is a 59-year-old male presenting for medical management of lumbar radiculopathy and right shoulder pain. He reports worsening right shoulder pain and requests Toradol and vitamin B12 injections for symptomatic relief. He denies new neurological or systemic complaints. His current medication regimen includes albuterol, Ambien, azelastine, gabapentin, lisinopril, montelukast, naproxen, oxycodone, Pataday, tizanidine, Trelegy Ellipta, spirometer, Sutab, and vitamin D. He has a history of low back pain, essential hypertension, carpal tunnel syndrome of the right wrist, obesity, asthma, GERD, and primary insomnia. He denies smoking. Medication reconciliation was completed. Consultation Request Notes Referral Date Referring Provider Referred Provider Not es 06/12/2025 JOSÉ MIGUEL VILLEGAS IMAD Progress Notes * Tino CERVANTESDOB:1965 ([age] yo M)Acc No.[id number]:06/12/2025 progress notes Patient: Tino Art Provider: Brodie VILLEGAS MD :1965 A ge:59 Y S ex:Male Date:06/12/2025 Address:[address] [place], [place] [address]Red RAMIREZ Brodie Marcano, [address] [place], [place] [id number] Check Out:05:13 PM EST Subjective: * Chief Complaints: * M edical management of lumbar radiculopathyC/o right shoulder pain worse Requesting Toradol and B12 injection * HPI: H PI: The patient is a 59-year-old male presenting for medical management of lumbar radiculopathy and right shoulder pain. He reports worsening right shoulder pain and requests Toradol and vitamin B12 injections for symptomatic relief. He denies new neurological or systemic complaints. His current medication regimen includes albuterol, Ambien, azelastine, gabapentin, lisinopril, montelukast, naproxen, oxycodone, Pataday, tizanidine, Trelegy Ellipta, spirometer, Sutab, and vitamin D. He has a history of low back pain, essential hypertension, carpal tunnel syndrome of the right wrist, obesity, asthma, GERD, and primary insomnia. He denies smoking. Medication reconciliation was completed. * Medical History: Low back pain Essential hypertension Carpal tunnel syndrome of right wrist Obesity Asthma Lumbar disc disorder GERD Primary insomnia * Surgical History: Lipoma left flank removal [...] day Spirometer - Kit as directed Sutab [id number] MG Tablet 12 tablets the first dose the evening before and second dose the morning of colonoscopy Orally Twice a day tiZANidine HCl 4 MG Tablet TAKE 1 TABLET BY MOUTH THREE TIMES A DAY Trelegy Ellipta 100-62.5-25 MCG/ACT Aerosol Powder Breath Activated 1 puff Inhalation Once a day Vitamin D (Ergocalciferol) 1.25 MG (53320 UT) Capsule TAKE 1 CAPSULE BY MOUTH [...] Spirometer - Kit as directed Taking Sutab 0143-038-916 MG Tablet 12 tablets the first dose the evening before and second dose the morning of colonoscopy Orally Twice a day Taking tiZANidine HCl 4 MG Tablet TAKE 1 TABLET BY MOUTH THREE TIMES A DAY Taking Trelegy Ellipta 100-62.5-25 MCG/ACT Aerosol Powder Breath Activated 1 puff Inhalation Once a day Taking Vitamin D (Ergocalciferol) 1.25 MG (83571 UT) Capsule TAKE 1 CAPSULE BY MOUTH ONE TIME PER WEEK FOR 90 DAYS * Allergies: N .K.D.A.yesAllergies Verified. Assessment: * Assessment: 1. L umbar radiculopathy - M54.16 (Primary) 2 . S houlder pain - M25.512? 3. E ncounter related to worker's compensation claim - Z02.6 Medical Decision Making (MDM ) and Treatment Plan: The patient's lumbar radiculopathy and right shoulder pain were assessed. Referral to orthopedic surgery (Dr. Francesca Hanson) was provided for further evaluation and management of both conditions. Orders were placed for Toradol intramuscular injection (60 mg, pending) and vitamin B12 injection (up to 1000 mcg, pending) for symptomatic relief. The patient was counseled on the potential side effects of Toradol, including gastrointestinal upset, renal risks, and bleeding, especially in the setting of chronic NSAID use. The importance of adherence to prescribed medications, avoidance of overuse, and regular follow-up was emphasized. The patient was instructed to monitor for any new or worsening neurological symptoms, and to follow up in four weeks or sooner if symptoms progress. 1. Referral to orthopedic surgery for further evaluation of lumbar radiculopathy and right shoulder pain. 2. Orders placed for Toradol and vitamin B12 injections for symptomatic relief. 3. Medication management strategies reviewed and adherence reinforced. 4. Patient advised to monitor for new or worsening neurological symptoms. 5. Follow-up appointment scheduled in four weeks. Plan: * Treatment: 2. S houlder pain Notes: Referral to orthopedic surgery for further evaluation was provided. 3. E ncounter related to worker's compensation claim Notes: The patient's work-related musculoskeletal complaints were addressed, and appropriate documentation and referrals were provided. 4. O thers Notes: By signing my name below, Prateek Rosales, felix that this documentation has been [...] Injections: Toradol IM : 60 mg (Pending) Vitamin B12 Injection up to 1000mcg (Pending) * Procedure Codes: G 2211 Complex e/m visit add [id number] BODY MASS INDEX DOCD * Follow Up: 4 Weeks, (Reason: 4 week follow up for lumbar radiculopathy, shoulder pain, and medication review) Billing Information: * Procedure Codes: G2211 Complex e/m visit add on. 3008F BODY MASS INDEX DOCD. * Electronic signature of WILLIAMS VILLEGAS MD, [id number] on 08/05/2025 at 09:32 AM EST Sign off status: Pending * Provider: Brodie IVLLEGAS MD Date: 1 08/12/2024 Generated for Lalita castro/Florian/Oni on: 09:32 AM EST
--- OUTSIDE RECORDS SUMMARY | 2025-06-13 08:15 | XMS_ITS ---
Author Organization [facility] Address [address] [place] [address] Care Team Providers Care Rouge Sifter And Miller Name Role Phone BEBETO VILLEGAS Primary Care Provider CHANTAL DALLAS Unavailable [phone] REASON FOR VISIT ALFONZO Biggs - Start [...] End Encounters Encounter Location Date Provider Diagnosis [facility] [address] [place] [address] 06/13/2025 BEBETO NELLY Plan Of Treatment No Information Progress Notes * Tino CERVANTESDOB:1965 ([age] yo M)Acc No.[id number]:06/13/2025 progress notes Patient: Tino Art Provider: Brodie VILLEGAS MD :1965 A ge:59 Y S ex:Male Date:06/13/2025 Address:[address] [place] [address] [address], [address], [id number] Subjective: * Chief Complaints: * * [...] * Electronic signature of WILLIAMS VILLEGAS MD, [id number] on 08/05/2025 at 09:33 AM EST Sign off status: Pending * Provider: Brodie VILLEGAS MD Date: 08/13/2024 Generated for Lalita castro/Florian/Oni on: 09:33 AM EST
--- OUTSIDE RECORDS SUMMARY | 2025-06-17 08:45 | XMS_ITS ---
Author Organization [facility] Address [address] [place] [address] Care Team Providers Care Code Enforcement Officer Name Role Phone JOSÉ MIGUEL VILLEGAS Primary Care Provider CHANTAL DALLAS Unavailable [phone] Allergies No Known Allergies REASON FOR VISIT C/o sinus pressure, congestion, sore throat, chest heaviness/tightness x3 days, Requesting Z-pack, [facility], [facility] Insights - Start , 1. Sleep Study Recommended: Yes, - - - - - - - - - - - - - - - - - - - - - - - - - - - - - - - - -, BMI: 30.54 (06/02/2025), Hypertension: Yes (02/02/2023), Heart Disease: No Results Found, - - - - - - - - - - - - - - - - - - - - - - - - - - - - - -- - -, 2. Last Colonoscopy: 01/19/2018, - - - - - - - - - - - - - - - - - - - - - - - - - - - - - -- - -, Final Diagnosis:, Melanosis coli throughout the colon., Otherwise no evidence of any polyp seen throughout the exam. 3. Normal- appearing terminal ileum., 1+ internal hemorrhoids., - - - - - - - - - - - - - - - - - - - - - - - - - - - - - - - - -, [facility] [employer] Insights - End Medications Medication SIG (Take, Route, Frequency, Duration) Notes Start Date End Date Status Sutab [id number] MG Tablet 12 tablets the first dose the evening before and second dose the morning of colonoscopy Orally Twice a day; Duration: 1 days 10/25/2024 Active tiZANidine HCl 4 MG Tablet TAKE 1 TABLET BY MOUTH THREE TIMES A DAY; Duration: 30 Active oxyCODONE HCl 5 MG Tablet 1 tablet as ne eded Orally every 6 hrs Active Pataday 0.1 % Solution 1 drop into affec brittany eye Ophthalmic Twice a day; Duration: 10 days 11/26/2024 Active Spirometer - Kit as directed; Duratio n: 30 days 09/13/2024 Active Lisinopril 5 MG Tablet 1 tablet Orally O nce a day; Duration: 90 days 11/11/2024 Active Montelukast Sodium 10 MG Tablet TAKE 1 TABLET BY MOUTH EVERY DAY; Duration: 90 Active Benzonatate 100 MG Capsule 1 capsule as needed Orally Three times a day; Duration: 10 06/17/2025 06/27/2025 Active Naproxen 500 MG Tablet TAKE 1 TABLET BY MOUTH EVERY 12 HOURS; Duration: 30 Active oxyCODONE HCl 10 MG Tablet 1 tablet as needed Orally 3 times a day; Duration: 30 days max daily dose: 3 tablets 05/27/2025 06/25/2025 Active Azelastine HCl 137 MCG/SPRAY Solution 2 [...] milliliter Orally prescribe; Duration: 1 10/25/2024 Active Ambien 10 MG Tablet 1 tablet at bedtime as needed Orally Once a day; Duration: 30 days 05/27/2025 06/26/2025 Active Trelegy Ellipta 100-62.5-25 MCG/ACT Aerosol Powder Breath Activated 1 puff Inhalation Once a day; Duration: 30 days 07/26/2024 Active Vitamin D (Ergocalciferol) 1.25 MG (53327 UT) Capsule TAKE 1 CAPSULE BY MOUTH ONE TIME PER WEEK FOR 90 DAYS; Duration: 90 Active Zithromax Z-Kody 250 MG Tablet 2 tablets on the first day, then 1 tablet daily for 4 days Orally Once a day; Duration: 5 days 06/17/2025 06/22/2025 Active Albuterol Sulfate HFA 108 (90 Base) MCG/ACT Aerosol Solution INHALE 1 PUFF INTO THE LUNGS EVERY 4 HOURS PRN; Duration: 30 days Active Social History Section Notes: denies smoking Encounters Encounter Location Date Provider Diagnosis [facility] [place] [address] [place] [address] 06/17/2025 JOSÉ MIGUEL VILLEGAS URI (upper respiratory infection) J06.9 and Cough R05.9 Assessments Encounter Date Diagnosis (ICD Code) Assessment Notes Treatment Notes Treatment Clinical Notes Section Notes 06/17/2025 URI (upper respiratory infection) (ICD-10 - J06.9) Zithromax Z-Kody prescribed for possible bacterial sinusitis. Orders placed for COVID, flu, and RSV swabs. Medical Decision Making (MDM) and Treatment Plan: The patient's acute upper respiratory symptoms were assessed as likely viral or bacterial sinusitis with associated chest heaviness. Zithromax Z-Kody (azithromycin 250 mg, 2 tablets on day one, then 1 tablet daily for four days) was prescribed for possible bacterial superinfection . Benzonatate 100 mg three times daily as needed was prescribed for cough suppression. The patient was advised to go to urgent care for COVID, flu, and viral swabs, and to be evaluated if symptoms worsen. He was counseled on the importance of medication adherence and to monitor for worsening symptoms, including fever, shortness of breath, or chest pain. Medication management strategies were reviewed, including use of a pill organizer and reminders. The patient was scheduled for follow-up in four weeks or sooner if symptoms worsen. 1. Zithromax Z-Kody prescribed for upper respiratory infection. 2. Benzonatate prescribed for cough suppression. 3. Orders placed for COVID, flu, and RSV swabs. 4. Patient advised to go to urgent care for swabs and evaluation if symptoms worsen. 5. Counseling provided on medication adherence and symptom monitoring. 6. Follow-up appointment scheduled in four weeks. 06/17/2025 Cough (ICD-10 - R05.9) Benzonatate 100 mg three times daily as needed prescribed for cough suppression. Medical Decision Making (MDM) and Treatment Plan: The patient's acute upper respiratory symptoms were assessed as likely viral or bacterial sinusitis with associated chest heaviness. Zithromax Z-Kody (azithromycin 250 mg, 2 tablets on day one, then 1 tablet daily for four days) was prescribed for possible bacterial superinfection . Benzonatate 100 mg three times daily as needed was prescribed for cough suppression. The patient was advised to go to urgent care for COVID, flu, and viral swabs, and to be evaluated if symptoms worsen. He was counseled on the importance of medication adherence and to monitor for worsening symptoms, including fever, shortness of breath, or chest pain. Medication management strategies were reviewed, including use of a pill organizer and reminders. The patient was scheduled for follow-up in four weeks or sooner if symptoms worsen. 1. Zithromax Z-Kody prescribed for upper respiratory infection. 2. Benzonatate prescribed for cough suppression. 3. Orders placed for COVID, flu, and RSV swabs. 4. Patient advised to go to urgent care for swabs and evaluation if symptoms worsen. 5. Counseling provided on medication adherence and symptom monitoring. 6. Follow-up appointment scheduled in four weeks. 06/17/2025 Other By signing my name below, Prateek [...] Making (MDM) and Treatment Plan: The patient's acute upper respiratory symptoms were assessed as likely viral or bacterial sinusitis with associated chest heaviness. Zithromax Z-Kody (azithromycin 250 mg, 2 tablets on day one, then 1 tablet daily for four days) was prescribed for possible bacterial superinfection . Benzonatate 100 mg three times daily as needed was prescribed for cough suppression. The patient was advised to go to urgent care for COVID, flu, and viral swabs, and to be evaluated if symptoms worsen. He was counseled on the importance of medication adherence and to monitor for worsening symptoms, including fever, shortness of breath, or chest pain. Medication management strategies were reviewed, including use of a pill organizer and reminders. The patient was scheduled for follow-up in four weeks or sooner if symptoms worsen. 1. Zithromax Z-Kody prescribed for upper respiratory infection. 2. Benzonatate prescribed for cough suppression. 3. Orders placed for COVID, flu, and RSV swabs. 4. Patient advised to go to urgent care for swabs and evaluation if symptoms worsen. 5. Counseling provided on medication adherence and symptom monitoring. 6. Follow-up appointment scheduled in four weeks. Plan Of Treatment Medication Medication Name Sig Start Date Stop Date Notes Benzonatate 100 MG Capsule 1 capsule as needed Orally Three times a day; Duration: 10 days 06/17/2025 06/27/2025 Zithromax Z-Kody 250 MG Tablet 2 tablets on the first day, then 1 tablet daily for 4 days Orally Once a day; Duration: 5 days 06/17/2025 06/22/2025 Treatment Notes Assessment Notes URI (upper respiratory infection) Zithro max Z-Kody prescribed for possible bacterial sinusitis. Orders placed for COVID, flu, and RSV swabs. Cough Benzonatate 100 mg t hree times daily as needed prescribed for cough suppression. Other By signing my name below, Prateek [...] Miguel Villegas MD Electronically Signed: Syeda Roe Future Test Test Name Order Date RSV: RESPIRATORY SYNCYTIAL VIRUS* [id number] 06/24/2025 [employer] SARS-CoV-2 RT PCR* [id number] 06/24 Influenza A/B & COVID 19 Ag*54 5 Next Appt Details Follow Up: 2 Weeks, Reason: 2 week follow up for URI and medication management History and Physical Notes * HPI (History of Present Illness) Category Sub-Category Detail Notes Category Not es HPI The patient is a 59-year-old male presenting with complaints of sinus pressure, congestion, sore throat, and chest heaviness/tightness for the past three days. He reports yellow mucus in the nose, facial pressure, and chest symptoms but denies fever, cough, body aches, or headache. He requests a Z-pack (azithromycin) for presumed sinus infection, noting similar symptoms occur annually with weather changes. He also requests benzonatate for cough suppression. He denies smoking. Medication reconciliation was completed. Progress Notes * HELEN TinoDOB:1965 ([age] yo M)Acc No.[id number]:06/17/2025 progress notes Patient: Tino Art Provider: Brodie VILLEGAS MD :1965 A ge:59 Y S ex:Male Date:06/17/2025 Address:[address] [place] [address] Brodie Marcano, [address], [id number] Check Out:01:33 PM EST Subjective: * Chief Complaints: * C /o sinus pressure, congestion, sore throat, chest heaviness/tightness x3 daysRequesting Z-packCVS [facility] Insights - Start 1. Sleep Study [...] - AI [employer] Insights - End * HPI: H PI: The patient is a 59-year-old male presenting with complaints of sinus pressure, congestion, sore throat, and chest heaviness/tightness for the past three days. He reports yellow mucus in the nose, facial pressure, and chest symptoms but denies fever, cough, body aches, or headache. He requests a Z-pack (azithromycin) for presumed sinus infection, noting similar symptoms occur annually with weather changes. He also requests benzonatate for cough suppression. He denies smoking. Medication reconciliation was completed. [...] day Spirometer - Kit as directed Sutab [id number] MG Tablet 12 tablets the first dose the evening before and second dose the morning of colonoscopy Orally Twice a day tiZANidine HCl 4 MG Tablet TAKE 1 TABLET BY MOUTH THREE TIMES A DAY Trelegy Ellipta 100-62.5-25 MCG/ACT Aerosol Powder Breath Activated 1 puff Inhalation Once a day Vitamin D (Ergocalciferol) 1.25 MG (50010 UT) Capsule TAKE 1 CAPSULE BY MOUTH [...] Spirometer - Kit as directed Taking Sutab 2445-975-167 MG Tablet 12 tablets the first dose the evening before and second dose the morning of colonoscopy Orally Twice a day Taking tiZANidine HCl 4 MG Tablet TAKE 1 TABLET BY MOUTH THREE TIMES A DAY Taking Trelegy Ellipta 100-62.5-25 MCG/ACT Aerosol Powder Breath Activated 1 puff Inhalation Once a day Taking Vitamin D (Ergocalciferol) 1.25 MG (45642 UT) Capsule TAKE 1 CAPSULE BY MOUTH ONE TIME PER WEEK FOR 90 DAYS * Allergies: N .K.D.A.yesAllergies Verified. Assessment: * Assessment: 1. U RI (upper respiratory infection) - J06.9 (Primary) 2 . C ough - R05.9? Medical Decision Making (MDM ) and Treatment Plan: The patient's acute upper respiratory symptoms were assessed as likely viral or bacterial sinusitis with associated chest heaviness. Zithromax Z-Kody (azithromycin 250 mg, 2 tablets on day one, then 1 tablet daily for four days) was prescribed for possible bacterial superinfection. Benzonatate 100 mg three times daily as needed was prescribed for cough suppression. The patient was advised to go to urgent care for COVID, flu, and viral swabs, and to be evaluated if symptoms worsen. He was counseled on the importance of medication adherence and to monitor for worsening symptoms, including fever, shortness of breath, or chest pain. Medication management strategies were reviewed, including use of a pill organizer and reminders. The patient was scheduled for follow-up in four weeks or sooner if symptoms worsen. 1. Zithromax Z-Kody prescribed for upper respiratory infection. 2. Benzonatate prescribed for cough suppression. 3. Orders placed for COVID, flu, and RSV swabs. 4. Patient advised to go to urgent care for swabs and evaluation if symptoms worsen. 5. Counseling provided on medication adherence and symptom monitoring. 6. Follow-up appointment scheduled in four weeks. Plan: * Treatment: 2. C ough Start Benzonatate Capsule, 100 MG, 1 capsule as needed, Orally, Three times a day, 10 days, 30 Capsule. Notes: Benzonatate 100 mg three times daily as needed prescribed for cough suppression. 3. O thers Notes: By signing my name below, Prateek Rosales, attest that this documentation has been [...] Electronically Signed: Syeda Roe * Procedure Codes: G 2211 Complex e/m visit add [id number] BODY MASS INDEX DOCD * Follow Up: 2 Weeks (Reason: 2 week follow up for URI and medication management) Billing Information: * Procedure Codes: G2211 Complex e/m visit add on. 3008F BODY MASS INDEX DOCD. * Electronic signature of WILLIAMS VILLEGAS MD, [id number] on 08/05/2025 at 09:32 AM EST Sign off status: Pending * Provider: Brodie VILLEGAS MD Date: 08/17/2024 Generated for Lalita castro/Florian/eTransmitting on: 09:32 AM EST
--- OUTSIDE RECORDS SUMMARY | 2025-06-24 05:00 | XMS_ITS ---
Author Organization [facility] Address [address] [place] [address] Care Team Providers Care Dude Ranch Manager Name Role Phone BEBETO VILLEGAS Primary Care Provider CHANTAL DALLAS Unavailable [phone] MARY TRAORE Unavailable [phone] REASON FOR VISIT 6 mos. f/u Encounters Encounter Location Date Provider Diagnosis [facility] [address] [place] [address] 06/24/2025 MARY TRAORE Essential hypertensi on I10 ; Lower extremity edema R60.0 ; Obesity (BMI 30.0-34.9) E66.9 ; Pain in right leg M79.604 and Pain in left leg M79.605 Assessments Encounter Date Diagnosis (ICD Code) Assessment Notes Treatment Notes Treatment Clinical Notes Section Notes 06/24/2025 Essential hypertension (ICD-10 - I10) 06/24/2025 Lower extremity edema (ICD-10 - R60.0) 06/24/2025 Obesity (BMI 30.0-34.9) (ICD-10 - E66.9) 06/24/2025 Pain in right leg (ICD-10 - M79.604) 06/24/2025 Pain in left leg (ICD-10 - M79.605) Plan Of Treatment No Information History and Physical Notes * HPI (History of Present Illness) Category Sub-Category Detail Notes Category Not es Cardiology HPI Patient is a 59-year-old male presenting for a cardiovascular follow-up with a past medical history of: Hypertension GIDD Carotid artery stenosis Prediabetes Obesity PAST CARDIAC HISTORY 05/20/2024: Established care (seismic interpreter present). Denies CV issues except LE swelling/varicosities. Recommended venous reflux study, LE arterial Doppler, increased amlodipine to 10 mg, vascular consult. F/u in 6 months. 10/01/2024: 4-month f/u; Doppler/reflux not done. Ongoing LE swelling/varicosities. Stopped amlodipine; BP otherwise controlled. No other CV issues. F/u after cardiac tests. 11/11/2024: F/u on tests. BP elevated (due to back pain). Arterial Doppler: no SFA disease, runoff disease present; persistent leg cramping. Venous reflux: no significant disease. Persistent LE swelling. Vascular consult advised. Started lisinopril 5 mg. F/u in 3 months. 12/24/2024: F/u for test results. Echo normal. Needs vascular f/u for LE cramping/swelling-will reschedule. F/u in 6 months. TODAY: HPI: SOCIAL BARRIERS: NA PAST CARDIAC WORKUP EK12/24/2024: Normal sinus rhythm. Echo: 10/08/2016: EF 50-55%, with trivial TR/MR. Echo: 10/13/2020: EF 55-60% with trivial TR/MR, GIDD. Echo: 12/06/2024: EF 55-60% with no significant valvular abnormalities. CT calcium score: 09/11/2020: Zero. NST: 09/01/2020: Negative for ischemia or arrhythmias. Lexiscan: 06/18/2019: Negative for ischemia. PAST VASCULAR WORKUP Carotid Doppler: 10/13/2020: Minimal atherosclerotic plaquing noted in the left carotid bulb. Carotid Doppler: 10/08/2016: WNL. Venous reflux: 10/18/2024: No evidence of significant valvular insufficiency in the distribution of the greater or lesser saphenous veins bilaterally Arterial Doppler: 10/18/2024: Widely patent femoral and popliteal segments bilaterally. Three-vessel continuous runoff with Doppler signal abnormality of the dorsalis pedis artery bilaterally as described suggesting distal infrapopliteal disease bilaterally. LABS 12/23/2024: Creatinine: 0.9 eGFR: 92.4 04/30/2024: HbA1c: 5.9 Triglyceride: 65 HDL: 71 LDL: 96 PHYSICAL EXAM: LUNGS clear. CARDIOVASCULAR: regular rate and rhythm, crisp S1 and S2, no murmur, no carotid bruit, no abdominal bruit. ASSESSMENT AND PLAN: Lower Extremity Swelling (ICD-10: R60.9) Swelling persists despite discontinuation of amlodipine. Recommend vascular consultation for further evaluation. The venous reflux study (10/18/2024) WNL. Echo from 2020 within normal limits. Echo dated 12/06/2024 shows preserved EF. Lower Extremity Cramping (R52) Lower extremity arterial Doppler (10/18/2024) show runoff disease. Recommend vascular consultation. Hypertension (I10) Blood pressure is well controlled. Amlodipine discontinued. Continue lisinopril 5 mg daily. Grade I diastolic dysfunction (I51.9) Blood pressure is not at goal today. No further testing at this time. We will continue to monitor. Carotid artery stenosis (I65.2) Minimal atherosclerotic plaquing noted in the left carotid bulb on 10/13/2020. Prediabetes - R73.03 HbA1c 5.9 on 04/30/2024. Continue metformin ER 750 mg once a day. Obesity (BMI 30.0-34.9) - E66.9 Diet and exercise are advised. Patient advised on healthy lifestyle changes, better eating habits, and proper exercise regimes. The patient was also advised of the negatives of health co-morbidities. Follow up: ____ The patient is to continue following up with PCP. Heart healthy diet healthy lifestyle applications encouraged and endorsed. All questions and concerns were answered and addressed. Progress Notes * Tino CERVANTESDOB:1965 ([age] yo M)Acc No.[id number]:06/24/2025 Progress Notes Patient: Tino Art Provider: Bernardino TRAORE MD :[id number] A ge:59 Y S ex:Male Date:06/24/2025 Address:[address] [place] [address] [address], [address], [id number] Pcp:BEBETO VILLEGAS Subjective: * Chief Complaints: * 6 mos. f/u * HPI: C ardiology HPI: Patient is a 59-year-old male presenting for a cardiovascular follow-up with a past medical history of: Hypertension GIDD Carotid artery stenosis Prediabetes Obesity PAST CARDIAC HISTORY 05/20/2024: Established care (seismic interpreter present). Denies CV issues except LE swelling/varicosities. Recommended venous reflux study, LE arterial Doppler, increased amlodipine to 10 mg, vascular consult. F/u in 6 months. 10/01/2024: 4-month f/u; Doppler/reflux not done. Ongoing LE swelling/varicosities. Stopped amlodipine; BP otherwise controlled. No other CV issues. F/u after cardiac tests. 11/11/2024: F/u on tests. BP elevated (due to back pain). Arterial Doppler: no SFA disease, runoff disease present; persistent leg cramping. Venous reflux: no significant disease. Persistent LE swelling. Vascular consult advised. Started lisinopril 5 mg. F/u in 3 months. 12/24/2024: F/u for test results. Echo normal.Needs vascular f/u for LE cramping/swelling-will reschedule. F/u in 6 months. TODAY: HPI: SOCIAL BARRIERS: NA PAST CARDIAC WORKUP EK12/24/2024: Normal sinus rhythm. Echo: 10/08/2016: EF 50-55%, with trivial TR/MR. Echo: 10/13/2020: EF 55-60% with trivial TR/MR, GIDD. Echo: 12/06/2024: EF 55-60% with no significant valvular abnormalities. CT calcium score: 09/11/2020: Zero. NST: 09/01/2020: Negative for ischemia or arrhythmias. Lexiscan: 06/18/2019: Negative for ischemia. PAST VASCULAR WORKUP Carotid Doppler: 10/13/2020: Minimal atherosclerotic plaquing noted in the left carotid bulb. Carotid Doppler: 10/08/2016: WNL. Venous reflux: 10/18/2024: No evidence of significant valvular insufficiency in the distribution of the greater or lesser saphenous veins bilaterally Arterial Doppler: 10/18/2024: Widely patent femoral and popliteal segments bilaterally. Three-vessel continuous runoff with Doppler signal abnormality of the dorsalis pedis artery bilaterally as described suggesting distal infrapopliteal disease bilaterally. LABS 12/23/2024: Creatinine: 0.9 eGFR: 92.4 04/30/2024: HbA1c: 5.9 Triglyceride: 65 HDL: 71 LDL: 96 PHYSICAL EXAM: LUNGS clear. CARDIOVASCULAR: regular rate and rhythm, crisp S1 and S2, no murmur, no carotid bruit, no abdominal bruit. ASSESSMENT AND PLAN: Lower Extremity Swelling (ICD-10: R60.9) Swelling persists despite discontinuation of amlodipine. Recommend vascular consultation for further evaluation. The venous reflux study (10/18/2024) WNL. Echo from 2020 within normal limits. Echo dated 12/06/2024 shows preserved EF. Lower Extremity Cramping (R52) Lower extremity arterial Doppler (10/18/2024) show runoff disease. Recommend vascular consultation. Hypertension (I10) Blood pressure is well controlled. Amlodipine discontinued. Continue lisinopril 5 mg daily. Grade I diastolic dysfunction (I51.9) Blood pressure is not at goal today. No further testing at this time. We will continue to monitor. Carotid artery stenosis (I65.2) Minimal atherosclerotic plaquing noted in the left carotid bulb on 10/13/2020. Prediabetes - R73.03 HbA1c 5.9 on 04/30/2024. Continue metformin ER 750 mg once a day. Obesity (BMI 30.0-34.9) - E66.9 Diet and exercise are advised. Patient advised on healthy lifestyle changes, better eating habits, and proper exercise regimes. The patient was also advised of the negatives of health co-morbidities. Follow up: ____ The patient is to continue following up with PCP. Heart healthy diet healthy lifestyle applications encouraged and endorsed. All questions and concerns were answered and addressed. * ROS: A 14-point ROS was negative unless specified above in HPI. Assessment: * Assessment: 1. L ower extremity edema - R60.0 (Primary) 2 . E ssential hypertension - I10 3 . O besity (BMI 30.0-34.9) - E66.9 4 . P ain in right leg - M79.604 5 . P ain in left leg - M79.605 Plan: * Treatment: * Procedure Codes: 9 3000 ELECTROCARDIOGRAM, COMPLETE Billing Information: * Procedure Codes: 07897 ELECTROCARDIOGRAM, COMPLETE. * Electronic signature of MARY TRAORE MD, [id number] on 08/05/2025 at 09:34 AM EST Sign off status: Pending * Provider: Bernardino TRAORE MD Date: 08/24/2024 Generated for Lalita castro/Florian/Vincentitting on: 09:34 AM EST
--- NOTE | ~2025-08-05 | MR_ITS ---
EXAMINATION: MR CERVICAL SPINE WITHOUT CONTRAST CLINICAL INFORMATION: Neck pain after fall in September 2024. Radiates down shoulders and arms. COMPARISON: No prior. TECHNIQUE: Multiplanar multisequence MR imaging of the cervical spine was done prior to and without the administration IV gadolinium. Examination was performed on a 1.5 Theresa Siemens unit, using standard sequences. FINDINGS: CORONAL ALIGNMENT: -Trace right convex scoliosis, apex at C5. SAGITTAL ALIGNMENT: -Normal lordosis. -There is a 2 mm degenerative anterolisthesis of C7 on T1. Sagittal alignment is otherwise anatomic. CRANIOCERVICAL JUNCTION/C1-2 ARTICULATIONS: -Intact and aligned. VERTEBRAL BODIES/BONE MARROW: -There is no fracture, compression deformity, or suspicious bone lesion. -There are mild edematous endplate changes present at C6-7. -There is no abnormal infiltrating bone marrow signal identified. DISCS: -Moderate to severe loss of height and signal at C6-7. -Mild to moderate loss of height and signal at C7-T1. -Minimal loss of disc height and signal at the remaining levels. CERVICAL CORD: -Normal in caliber and signal throughout. No regional cord expansion or thinning. No evidence of cord impingement. No focal cord signal abnormality. PARAVERTEBRAL SOFT TISSUES: -Normal. -The thyroid is obscured by a saturation band. VISUALIZED INTRACRANIAL STRUCTURES: -Imaged contents of the posterior fossa appear normal. Cerebellar tonsils are appropriately located. Preserved flow voids in the vertebral arteries bilaterally. AXIAL DISC SPACE IMAGING: C2-C3: There is no central canal or neural foraminal narrowing. Normal facets. C3-C4: There is no central canal or neural foraminal narrowing. There is mild bilateral facet hypertrophy. There is minimal bilateral uncinate spurring. C4-C5: There is no central canal or lateral recess narrowing. There is mild bilateral neural foraminal narrowing due to bilateral uncinate and facet hypertrophic spurring. C5-C6: Minimal disc bulge present, indenting upon the ventral thecal sac but not contacting the cord. There is no significant central canal or lateral recess stenosis. There is mild right greater than left uncinate spurring, and mild bilateral facet spurring, contributing to mild right greater than left neural foraminal narrowing. C6-C7: Severe disc degeneration at this level. There is an irregular disc bulge present, indenting upon the ventral thecal sac but not contacting the cord. This results in minimal central canal narrowing. There is mild right greater than left lateral recess narrowing. Uncinate and facet spurring contributes to mild to moderate right greater than left neural foraminal narrowing. C7-T1: There is no disc bulging or central canal narrowing. Lateral recesses are patent. Bilateral mild to moderate facet spurring contributes to mild bilateral neural foraminal narrowing. MR/MR cervical spine wo con IMPRESSION: 1. Mild spondylosis of the cervical spine most significant at C6-7 where there is moderate to severe disc degeneration and mild edematous endplate changes. 2. There is no evidence of significant central canal stenosis, significant neural foraminal stenosis, cord impingement or signal abnormality at any level. Electronically signed by: Reji River MD 08/05/2025 10:09 AM ZENIA ESPANA
--- OUTSIDE RECORDS SUMMARY | 2025-08-05 09:32 | XMS_ITS | Encounter Summary ---
Author Organization [employer] Address [address] [facility] 7 [place] [address] Care Team Providers Care Cafeteria Server Name Role Phone Missy Mcwilliams MD Primary Care Provider Nestor Lofton MD Primary Care Provider [phone] Reason for Visit * Reason Onset Date Comments call back 06/10/2025 Encounter Details Date Type Department Care Team ([facility] st Contact Info) Description 06/10/2025 Telephone [facility] [address] [place] [address] Missy Mcwilliams MD [address] [place] [address] call back Social History Tobacco Use Types [...] with others, in a hotel, in a group home, living outside on the street, on [...] requesting an call back Contact pt at [phone] documented in this encounter Plan of Treatment Upcoming Encounters Date Type Department Care Team (Late st Contact Info) Description 08/27/2025 9:00 AM EST Clinical Support [address] [address] Annette Stanford RN 10/08/2025 11:15 AM EST Office Visit [address] [address] Name, MD Nestor [address] [place] [address] documented as of this encounter Visit Diagnoses Not on filedocumented in this encounter Additional Health Concerns Assessment Noted Time PHQ-9 Depression Total Score: 22 025 11:19 AM EDT documented as of this encounter Care Teams Cafeteria Server Relationship Specialty Start Date End Date Missy Mcwilliams MD [address] [place] [address] PCP - General Family Medicine 03/31/25 06/18/25 Name, MD Nestor [address] [place] [address] PCP - General Internal Medicine 06/19/25 documented as of this encounter
--- OUTSIDE RECORDS SUMMARY | 2025-08-05 09:32 | XMS_ITS | Encounter Summary ---
Author Organization [employer] Address [address] [place] [address] [place] [address] Care Team Providers Care Regional Economist Name Role Phone Missy Mcwilliams MD Primary Care Provider [phone] Nestor Lofton MD Primary Care Provider Encounter Details Date Type Department Care Team (Late st Contact Info) Description 05/09/2025 Orders Only [facility] [address] [place], [place] [phone] Luiza Resendiz MD [address] [place] [address] Social History Tobacco Use Types Packs/Day Years [...] Description 08/27/2025 9:00 AM EST Clinical Support [facility] [address] [place] [address] Annette Stanford RN 10/08/2025 11:15 AM EST Office Visit [address] [address] Nestor Lofton MD [address] [place] [phone] documented as of this encounter Visit Diagnoses Not on filedocumented in this encounter Care Teams Regional Economist Relationship Specialty Start Date End Date Missy Mcwilliams MD [address] [place] [address] PCP - General Family Medicine 03/31/25 06/18/25 Rolly, MD Nestor [address] [place] [address] PCP - General Internal Medicine 06/19/25 documented as of this encounter
--- OUTSIDE RECORDS SUMMARY | 2025-08-05 09:32 | XMS_ITS | Clinical Summary ---
Author Organization [employer] Address [address] [place] [address] 7t [place] [address] Care Team Providers Care Supervisor Fishing Name Role Phone Name, Nestor SMITH Primary Care Provider [phone] Allergies No known active allergies Medications * [...] 28 days. Do not start before July 29, 2025. 112 tablet 025 2025 Active oxyCODONE (Roxicodone) 10 MG immediate release tabletIndication s:Lumbar radiculopathy Take 1 tablet (10 mg) by mouth every 6 (six) hours if needed for severe pain for up to 28 days. Do not start before July 01, 2025. 112 tablet 025 2024 Discontinued(R eorder (will not trigger notification to Pharmacy)) Active Problems Problem Noted Date Diagnosed Date [...] organization. Date Type Department Care Team Description 07/28/2025 Refill [facility] [address] [place] [address] Name, MD Nestor Lumbar radiculopathy 07/22/2025 10:15 AM EST Office Visit [address] [address] Nestor Lofton MD Lumbar disc disease with radiculopathy (Primary Dx); Essential (primary) hypertension; Chronic right shoulder pain 07/22/2025 Travel 07/21/[address] [address] Cipriano AddisonemelyMILI reyes chart prep 07/17/[address] [address] Nestor Lofton MD Med Refill 07/11/2025 Patient Outreach [address] [address] Nestor Lofton MD Pre-visit Planning (SDOH screening was completed on 06/02/2025) 06/26/2025 11:30 AM EST Office Visit [facility] [address] [place] [address] Chad Sams MD Lumbar disc disease with radiculopathy (Primary Dx) 06/26/2025 Travel 06/19/2025 1:00 PM EST Clinical Support [facility] [address] [place] [address] Mirta Valerio RN Chronic right shoulder pain (Primary Dx) 06/19/[address] [address] Missy Mcwilliams MD Nurse Triage 06/19/2025 Travel 06/19/2025 Telephone [facility] [address] [place] [address] Mirta Valerio, ENZO 06/18/2025 Telephone [facility] [address] [place] [address] Missy Mcwilliams MD 06/16/2025 Refill [facility] [address] [place] [address] Mirta Valerio RN Lumbar radiculopathy 06/16/[address] [address] Missy Mcwilliams MD Med Refill; Prior Auth Prescription 06/16/[address] [address] Missy Mcwilliams MD Med Refill; Prior Auth Prescription 06/16/2025 Patient Outreach [address] [address] Missy Mcwilliams MD Care Coordination (CH[facility] outreach for SDOH PT-1 and food needs-LVM to call back ) 06/15/2025 Orders Only [facility] External Provider, [facility] 06/13/2025 1:40 PM EST Office Visit [facility] [address] [place] [address] [place] [place], [facility] Lumbar radiculopathy (Primary Dx); Chronic right shoulder pain; Housing insecurity 06/13/2025 Travel 06/10/[address] [address] Missy Mcwilliams MD call back 06/09/[address] [address] Missy Mcwilliams MD Medication Question 06/09/[address] [address] Missy Mcwilliams MD Med Refill 06/04/[address] [address] Missy Mcwilliams MD Prior Authorization 06/02/2025 11:00 AM EDT Office Visit [facility] [address] [place] [address] Missy Mcwilliams MD Long-term current use of opiate analgesic (Primary Dx); Lumbar radiculopathy; Periumbilical hernia 06/02/2025 Travel 05/30/2025 Telephone [facility] [address] [place] [address] Missy Mcwilliams MD Chart Prep 05/29/[address] [address] Missy Mcwilliams MD Med Refill 05/27/2025 Telephone [facility] [address] [place], [place] [phone] Missy Mcwilliams MD Change PCP 05/22/2025 Telephone [facility] [address] [place] [address] Missy Mcwilliams MD Med Refill 05/22/[address] [phone] Missy Mcwilliams MD Med Refill 05/22/2025 Refill [facility] [address] [place] [address] Missy Mcwilliams MD 05/21/2025 Refill [facility] [address] [place], [place] [phone] Missy Mcwilliams MD 05/21/2025 Refill [facility] [address] [place], [place] [phone] Missy Mcwilliams MD Lumbar radiculopathy 05/15/2025 3:00 PM EDT Clinical Support [facility] [address] [place] [address] Mirta Valerio RN Lumbar radiculopathy (Primary Dx); Long-term current use of opiate analgesic 05/15/2025 Travel 05/14/2025 Telephone [facility] [address] [place] [address] Missy Mcwilliams MD Referral 05/09/2025 Orders Only [facility] [address] [place] [address] Luiza Resendiz MD 05/09/2025 Refill [facility] [address] [place] [address] Missy Mcwilliams MD Lumbar radiculopathy (Primary Dx) from Last 3 Months Immunizations Immunization Administration Dates Next Due Tdap 07/22/2025 Family History Medical History Relation Name Comments [...] Sign Reading Time Taken Comments Blood Pressure 132/92 07/22/2025 10:31 AM EST Pulse 112 07/22/2025 10:31 AM EST Temperature 36.7 C (98.1 F) 07/22/2025 10:31 AM EST Respiratory Rate 18 07/22/2025 10:3 1 AM EST Oxygen Saturation 97% 07/22/2025 10: 31 AM EST Inhaled Oxygen Concentration - - Weight 91.5 kg (201 lb 12.8 oz) 025 10:31 AM EST Height 170.2 cm (5' 7 ) 07/22/2025 10:3 1 AM EST Body Mass Index 31.61 07/22/2025 10:31 AM EST Plan of Treatment Upcoming Encounters Date Type Department Care Team (Late st Contact Info) Description 08/27/2025 9:00 AM EST Clinical Support [facility] [address] [place] [address] Annette Stanford RN 10/08/2025 11:15 AM EST Office Visit [facility] [address] [place] [address] Name, MD Nestor [address] [place] [address] Health Maintenance Due Date Last Done Comments CT Colonography 1967 Colonoscopy 1967 Colorectal Cancer Screening 1967 FIT DNA/Cologuard 1967 FIT 1967 FOBT 1967 HIV Screening 1967 Lipid Panel 1967 Sigmoidoscopy 1967 Hepatitis C Screening 10/09/1985 Hepatitis B Vaccines (1 of 3 - [...] tponed from 10/09/2017 (Patient Refused) Tobacco Screening 07/22/2026 07/22/2025 DTaP/Tdap/Td Vaccines (2 - T d or Tdap) 07/22/2035 07/22/2025 RSV Patients and Patients Aged 60 years [...] PM EST . Internal Pass Control Lot# [id number] Exp: 05-13-26 Missy Mcwilliams MD POINT OF CARE TEST ENTER/EDIT ORDERABLES Final Result * XR Lumbar Spine 2-3 Views (06/15/2025 4:05 PM EST) Anatomical Region Laterality Modality Spine, L-spine Radiographic Jessica ging 06/15/2025 4:05 PM EST Narrative 06/15/2025 4:06 PM EST [place] [address] XRay Report Signed Patient: Tino Phillips MR#: [id number] : 1965 Acct:[id number] Age/Sex: 59 / M ADM Date: 06/15/25 Loc: HO.ED Attending Dr: Ordering Physician: Colton Solis Date of Service: 06/15/25 Procedure(s): XR lumbar spine 2-3V Accession Number(s): [id number] cc: Colton Solis; Missy Mcwilliams MD Reason [...] OV> 06/15/25 1605 DD/ 1605 TD/TT: 06/15/25 160 Wall Covering Contractor: Procedure Note Donotrogerinterpreter, Image - 06/15/[address] [address] XRay Report Signed Patient: Tino PhillipsMR#: [id number] : 1965Acct:[id number] Age/Sex: 59 / MADM Date: 06/15/25 Loc: HO.ED Attending Dr: Ordering Physician: Colton Solis Date of Service: 06/15/25 Procedure(s): XR lumbar spine 2-3V Accession Number(s): [id number] cc: Colton Solis; Missy Mcwilliams MD Reason [...] OV> 06/15/25 1605 DD/ 1605 TD/TT: 06/15/25 160 Wall Covering Contractor: us [facility] External Provider IMG XR PROCEDURES Edited Result - Final * XR Hip right with Pelvis 1 view (06/15/2025 4:03 PM EST) Anatomical Region Laterality Modality Lower Extremities, Hip Bilateral Radiograp hic Imaging 06/15/2025 4:03 PM EST Narrative 06/15/2025 4:05 PM EST [address] [address] XRay Report Signed Patient: Tino Phillips MR#: [id number] : 1965 Acct:[id number] Age/Sex: 59 / M ADM Date: 06/15/25 Loc: HO.ED Attending Dr: Ordering Physician: Colton Solis Date of Service: 06/15/25 Procedure(s): XR hip RT w PEL1V Accession Number(s): [id number] cc: Colton Solis; Missy Mcwilliams MD Reason [...] 06/15/25 1604 DD/ 1603 TD/TT: 06/15/25 1603 Wall Covering Contractor: Procedure Note Donotuseinterpreter, Image - 06/15/2025 [place] [address] XRay Report Signed Patient: Tino PhillipsMR#: [id number] : 1965Acct:[id number] Age/Sex: 59 / MADM Date: 06/15/25 Loc: HO.ED Attending Dr: Ordering Physician: Colton Solis Date of Service: 06/15/25 Procedure(s): XR hip RT w PEL1V Accession Number(s): [id number] cc: Colton Solis; Missy Mcwilliams MD Reason [...] in OV> 06/15/25 1604 DD/ 160 TD/TT: 06/15/25 160 Wall Covering Contractor: [facility] External Provider IMG XR PROCEDURES Edited Result - Final from Last 3 Months Insurance [facility] STANDARD Care Teams Supervisor Fishing Relationship Specialty Start Date End Date Name, MD Nestor [address] [place] [address] PCP - General Internal Medicine 06/19/25
--- OUTSIDE RECORDS SUMMARY | 2025-08-05 09:32 | XMS_ITS | Encounter Summary ---
Author Organization [employer] Address [address] [facility] 7 [place] [address] Care Team Providers Care Weigher And Mixer Name Role Phone Missy Mcwilliams MD Primary Care Provider [phone] Nestor Lofton MD Primary Care Provider [phone] Reason for Visit * Reason Onset Date Comments Med Refill 06/09/2025 Encounter Details Date Type Department Care Team ([facility] st Contact Info) Description 06/09/2025 Telephone [facility] [address] [place] [address] Missy Mcwilliams MD [address] [place] [address] Med Refill Social History Tobacco Use Types [...] Ordonez LPN - 06/09/2025 11:27 AM EST DISTRICT ATTORNEY checked on 06/09/25 medication last sold on 06/02/25 #15 to soon for refill. * Telephone Encounter - Franki Garcia - 06/09/2025 11:23 AM EST TC from pt requesting medication refill. Medications needing refill : zolpidem (Ambien) 10 MG tablet To be sent to: [facility]/pharmacy #[id number] documented in this encounter Plan of Treatment Upcoming Encounters Date Type Department Care Team ([facility] st Contact Info) Description 08/27/2025 9:00 AM EST Clinical Support [address] [address] Annette Stanford RN 10/08/2025 11:15 AM EST Office Visit [facility] [address] [place] [address] Name, MD Nestor [address] [place] [address] documented as of this encounter Visit Diagnoses Not on filedocumented in this encounter Additional Health Concerns Assessment Noted Time PHQ-9 Depression Total Score: 22 025 11:19 AM EDT documented as of this encounter Care Teams Weigher And Mixer Relationship Specialty Start Date End Date Missy Mcwilliams MD [address] [place] [address] PCP - General Family Medicine 03/31/25 06/18/25 Name, MD Nestor [address] [place] [address] PCP - General Internal Medicine 06/19/25 documented as of this encounter
--- OUTSIDE RECORDS SUMMARY | 2025-08-05 09:33 | XMS_ITS | Encounter Summary ---
Author Organization [employer] Address [address] [facility] 7 [place] [address] Care Team Providers Care Lockstitch Machine Operator Name Role Phone Missy Mcwilliams MD Primary Care Provider [phone] Nestor Lofton MD Primary Care Provider [phone] Reason for Visit * Reason Onset Date Comments Med Refill 06/16/2025 Prior Auth Prescription 06/16/2025 Encounter Details Date Type Department Care Team ([facility] st Contact Info) Description 06/16/2025 Telephone [facility] [address] [place] [address] Missy Mcwilliams MD [address] [place] [address] Med Refill; Prior Auth Prescription Social History [...] with others, in a hotel, in a snf, living outside on the street, on a [...] the past 12 months, has t he [employer], gas, oil or water company threatened to [...] immediate release tablet To be sent to: -[facility]/pharmacy #[id number] [place], [place] - [address] [place] [address] Pt stated after sending medication it need a PA documented in this encounter Plan of Treatment Upcoming Encounters Date Type Department Care Team ([facility] st Contact Info) Description 08/27/2025 9:00 AM EST Clinical Support [address] [address] HienAnnette RN 10/08/2025 11:15 AM EST Office Visit [facility] [address] [place] [address] Name, MD Nestor [address] [place] [address] documented as of this encounter Visit Diagnoses Not on filedocumented in this encounter Additional Health Concerns Assessment Noted Time PHQ-9 Depression Total Score: 22 025 11:19 AM EDT documented as of this encounter Care Teams Lockstitch Machine Operator Relationship Specialty Start Date End Date Missy Mcwilliams MD [address] [place] [address] PCP - General Family Medicine 03/31/25 06/18/25 NameNestor MD [address] [place] [address] PCP - General Internal Medicine 06/19/25 documented as of this encounter
--- OUTSIDE RECORDS SUMMARY | 2025-08-05 09:33 | XMS_ITS | Encounter Summary ---
Author Organization [employer] Address [address] [facility] 7 [place] [address] Care Team Providers Care Film Developing Machine Operator Name Role Phone Missy Mcwilliams MD Primary Care Provider [phone] Nestor Lofton MD Primary Care Provider [phone] Reason for Visit * Reason Onset Date Comments Med Refill 06/16/2025 Prior Auth Prescription 06/16/2025 Encounter Details Date Type Department Care Team ([facility] st Contact Info) Description 06/16/2025 Telephone [facility] [address] [place] [address] Missy Mcwilliams MD [address] [place] [address] Med Refill; Prior Auth Prescription Social History [...] the past 12 months, has t he [employer], gas, oil or water [employer] threatened to shut off services in your [...] Encounter - Dee Dee Stone LPN - 06/19/2025 1:26 PM EST Sound Engineer spoke with regarding PA needed , stated No pa is needed for 28 day supply just need a Rx to be sent,. Please review * Telephone Encounter - Nuris Peña - 06/18/2025 2:28 PM EST Tc from pt requesting a update on PA stating he has been out of medication for 4 days Contact pt at [phone] (wallisian) * Telephone Encounter - Alta Francois - 06/17/2025 11:04 AM EST Script is at Pharmacy just need a Pa. * Telephone Encounter - Faye Ordonez LPN - 06/16/2025 12:26 PM EST Script was sent to [facility] #[id number] on 06/10/25. * Telephone Encounter - Bren Hsu - 06/16/2025 12:05 PM EST TC from pt requesting medication refill. Medications needing refill : - zolpidem (Ambien) 10 MG tablet To be sent to: - [facility]/pharmacy #[id number] - [place], [place] - [address] [place] [address] Pt stated after sending medication it need a PA documented in this encounter Plan of Treatment Upcoming Encounters Date Type Department Care Team ([facility] st Contact Info) Description 08/27/2025 9:00 AM EST Clinical Support [address] [address] Annette Stanford RN 10/08/2025 11:15 AM EST Office Visit [address] [address] NameNestor MD [address] [place] [address] documented as of this encounter Visit Diagnoses Not on filedocumented in this encounter Additional Health Concerns Assessment Noted Time PHQ-9 Depression Total Score: 22 025 11:19 AM EDT documented as of this encounter Care Teams Film Developing Machine Operator Relationship Specialty Start Date End Date Missy Mcwilliams MD [address] [place] [address] PCP - General Family Medicine 03/31/25 06/18/25 Nestor Lofton MD [address] [place] [address] PCP - General Internal Medicine 06/19/25 documented as of this encounter
--- OUTSIDE RECORDS SUMMARY | 2025-08-05 09:34 | XMS_ITS | Encounter Summary ---
Author Organization [employer] Address [address] [place] [address] [address] [place] [address] Care Team Providers Care [employer] Name Role Phone Missy Mcwilliams MD Primary Care Provider [phone] Nestor Lofton MD Primary Care Provider [phone] Reason for Visit * Reason Onset Date Comments Med Refill 05/22/2025 Encounter Details Date Type Department Care Team ([facility] st Contact Info) Description 05/22/2025 Telephone [facility] [address] [place] [address] Missy Mcwilliams MD [address] [place] [address] Med Refill Social History Tobacco Use Types [...] 08/27/2025 9:00 AM EST Clinical Support [address] [address] Annette Stanford RN 10/08/2025 11:15 AM EST Office Visit [address] [address] Nestor Lofton MD [address] [place] [phone] documented as of this encounter Visit Diagnoses Not on filedocumented in this encounter Care Teams [employer] Relationship Specialty Start Date End Date Missy Mcwilliams MD [address] [place] [phone] PCP - General Family Medicine 03/31/25 06/18/25 Nestor Lofton MD [address] [place] [id number] PCP - General Internal Medicine 06/19/25 documented as of this encounter
--- OUTSIDE RECORDS SUMMARY | 2025-08-05 09:34 | XMS_ITS | Patient Health Record ---
Author Organization [facility] C Address [address] [place] [address] Care Team Providers Care Gis Technician Name Role Phone BEBETO VILLEGAS Primary Care Provider [phone] CHANTAL DALLAS Unavailable [phone] HIRAM BUCK Unavailable [phone] ALIE SCHULTE Unavailable [phone] GRACE HERRERA Unavailable [phone] NATHANIEL PADILLA Unavailable Unavailable IRENE GUALLPA Unavailable [phone] RONITCALE RIVERA Unavailable [phone] JANET SHIPMAN Unavailable [phone] CEASAR LOCO Unavailable [phone] ERIN CONLEY Unavailable [phone] RODOLFO SELBY Unavailable [phone] BHARAT DAO Unavailable [phone] FABIEN HANSON Unavailable [phone] MARY TRAORE Unavailable [phone] JACEK VERMA Unavailable [phone] CAROLANN DALLAS Unavailable [phone] DICKSON PATTON Unavailable [phone] Allergies No Known Allergies Results Component Value Reference Range Flag Notes X-ray Chest 2V (PA/Lateral)* Reviewed date:12/02/2024 07:52:30 PM Interpretation: Performing Lab: Notes/Report: CLINICAL INFORMATION: Cough TECHNIQUE: PA and lateral views of the chest COMPARISON: 07/03/2015 FINDINGS: Heart/Mediastinum: Normal heart size. Unremarkable mediastinum. Lungs: No acute infiltrates. No pleural effusions. Osseous Structures: No acute osseous abnormalities. Additional Comments: None. IMPRESSION: No acute pulmonary disease NOW Strep A 2 6351 Reviewed date:08/19/2024 06:40:02 PM Interpretation: Performing Lab: Notes/Report: PCR Respiratory Panel*58 Reviewed date:08/20/2024 03:35:15 PM Interpretation: Performing Lab: Notes/Report: Virokey Influenza A PCR* Negative Negativ e\.br\(Ref er to value/result column\.br\for results) Note: Preferable reference range is Negative, reference range does not indicate your result. Please see the Value/Result column for your actual result. Note: The ViroKey Influenza A RT PCR assay is assesed using the Message[employer] SX Virus Nucleic Acid Kit on the [employer] SX101, as well as RT-PCR run on the [employer]201 insturment from [employer]. The VirLearn It Livey Influenza A RT PCR has not been FDA cleared or approved; it has been authorized by the FDA under an EUA for use by authorized high complexity laboratories. This test isintended for the qualitative detection of RNA from Influenza A/B in nasopharyngeal and oropharygeal swabs from individuals who are suspected of Influenza A by their healther care provider. Virokey Respiratory Syncytial Virus (RSV)* Negative Negative\.br\(Ref er to value/result column\.br\for results) Note: Preferable reference range is Negative, reference range does not indicate your result. Please see the Value/Result column for your actual result. Note: The MessageBunker RSV RT PCR assay is assesed using the [employer] SX Virus Nucleic Acid Kit on the [employer] SX101, as well as RT-PCR run on the [employer]201 insturment from [employer]. The [employer] Influenza A/B RT PCR has not been FDA cleared or approved; it has been authorized by the FDA under an EUA for use by authorized high complexity laboratories. This test isintended for the qualitative detection of RNA from RSV in nasopharyngeal and oropharygeal swabs from individuals who are suspected of RSV by their healther care provider. Virokey Influenza B PCR* Negative Note: Preferable reference range is Negative, reference range does not indicate your result. Please see the Value/Result column for your actual result. Note: The Message[employer]er Influenza B RT PCR assay is assesed using the [employer] SX Virus Nucleic Acid Kit on the [employer] SX101, as well as RT-PCR run on the [employer]201 insturment from [employer]. The Message[employer] Influenza A RT PCR has not been FDA cleared or approved; it has been authorized by the FDA under an EUA for use by authorized high complexity laboratories. This test isintended for the qualitative detection of RNA from Influenza A/B in nasopharyngeal and oropharygeal swabs from individuals who are suspected of Influenza B by their healther care provider. ViroKey SARS-CoV-2 RT PCR Positive Negati ve\.br\(Ref er to value/result column\.br\for results) CT Values POS Note: Preferable reference range is Negative, reference range does not indicate your result. Please see the Value/Result column for your actual result. Note: The MessageBunker SARS-CoV-2 RT PCR assay is assesed using the [employer] SX Virus Nucleic Acid Kit on the [employer] SX101, as well as RT-PCR run on the [employer] SA201 insturment from [employer]. The MessageB[employer]er SARS-CoV-2 RT PCR has not been FDA cleared or approved; it has been authorized by the FDA under an EUA for use by authorized high complexity laboratories. This test isintended for the qualitative detection of RNA from SARS-CoV-2 in nasopharyngeal and oropharygeal swabs from individuals who are suspected of COVID-19 by their healther care provider. The Message[employer]er SARS-CoV-2 RT PCR is only authorized for the duration of the declaration that circumstances exists justifying the authorization of emergency use of in vitro diagnostic tests for detection and/or diagnosis of COVIC-19 under Section 564(b)(1) of Act, 21 U.S.C SS 360bb-3(b)(1), unless the authorization is terminated or revoked. Upper Respiratory Culture (T hroat Culture) [facility] [id number] Reviewed date:08/23/2024 07:20:44 PM Interpretation: Performing Lab: [...] at both ankles, greater on the right. W/DIFF with Refx to Reti c (new) [...] Comments: None. IMPRESSION: No acute pulmonary disease NOW COVID-19* Reviewed date:10/21/2024 12:19:35 PM Interpretation: Performing Lab: Notes/Report: jr ID NOW COVID-19 Negative Negative Note: The ID NOW COVID-19 assay performed on the ID NOW instrument from [employer]. The ID NOW COVID- 19 has not been FDA cleared or approved; it has been authorized by the FDA under a EUA for use by authorized laboratories. This test has been authorized for the use of isothermal nucleic acid amplification technology intended for the qualitative detection of nucleic acid from SARS-CoV-2 viral RNA in direct nasal, nasopharyngeal, or throat swab from individuals who are suspected of COVID-19 by their healthier care provider. TheThe ID NOW COVID-19 is only authorized for the duration of the declaration that circumstances exist justifying the authorization of emergency use of in vitro diagnostic tests for detection and/or diagnosis of COVIC-19 under Section 564(b)(1) of Act, 21 U.S.C SS 360bb-3(b)(1) unless the authorization is terminated or revoked. Negative results don't rule our SARS-C0V-2 infection, particularly in those who have been in contact with the virus. Specimen Type Nasal Swab ID NOW RSV 6350 Reviewed date:10/21/2024 12:19:35 PM Interpretation: Performing Lab: Notes/Report: jr CBC W/DIFF with Refx to Reti c (new) IN HOUSE *2115* Reviewed date:12/02/2024 04:45:29 PM Interpretation: Performing Lab: Notes/Report: US Echo 2D Doppler w color f low* Reviewed date:12/12/2024 09:11:34 AM Interpretation: Performing Lab: Notes/Report: [facility]CHOCARDIOGRAPHY LABORAT[facility]: LE edema Date of Service: 12.06.2024 Date of Prior: 10.13.2020 BP: 118.64 GENDER: M AGE: 59 HT:5'7'' WT:193 HR: 80 BSA: 1.99m2 Bedspread Folder:RENEE PROCEDURE DESCRIPTION: A complete 2D, M-Mode, Doppler [...] date:12/23/2024 01:45:00 PM Interpretation: Performing Lab: Notes/Report: Urinalysis by dipstick W/O m icroscopy* 88130 Reviewed date:09/13/2024 03:01:46 PM Interpretation: Performing Lab: Notes/Report: Color yellow Clarity clear Blood - Negative - Bilirubin - Negative - Urobilinogen 0.2 Negative - Specific [place] 1.015 Nitrite - Negative - Protein 15 [...] Spine, 3 View(s) COMPARISON: 08/02/2024. FINDINGS: Alignment: Vqyl-mb-vrbulvgn convex right thoracolumbar scoliosis. Stable mild grade [...] process of L1. No associated intra-abdominal injury. * Reviewed date:12/31/2024 06:19:50 AM Interpretation: Performing [...] RR_NumBeats 0 RR_NumNormalBeats 0 RR_SystolicBP 0 X-ray Hip 2V, right* Reviewed date:09/24/2024 03:00:01 [...] suspicious pulmonary mass or consolidation. Influenza Swab* 61295 x2 Padmini t code 6335 Reviewed date:10/21/2024 [...] range does not indicate your result. Please see the Value/Result column for your actual result. Note: The ViroKey Influenza A RT PCR assay is assesed using the Message[employer] SX Virus Nucleic Acid Kit on the [employer] SX101, as well as RT-PCR run on the [employer] SA201 insturment from [employer]. The [employer] It Livey Influenza A RT PCR has not been FDA cleared or approved; it has been authorized by the FDA under an EUA for use by authorized high complexity laboratories. This test isintended for the qualitative detection of RNA from Influenza A/B in nasopharyngeal and oropharygeal swabs from individuals who are suspected of Influenza A by their healther care provider. Virokey Respiratory Syncytial Virus (RSV)* Negative Negative\.br\(Ref er to value/result column\.br\for results) Note: Preferable reference range is Negative, reference range does not indicate your result. Please see the Value/Result column for your actual result. Note: The MessageBunker RSV RT PCR assay is assesed using the Message[employer]er SX Virus Nucleic Acid Kit on the [employer] SX101, as well as RT-PCR run on the [employer] SA201 insturment from [employer]. The [employer] Influenza A/B RT PCR has not been FDA cleared or approved; it has been authorized by the FDA under an EUA for use by authorized high complexity laboratories. This test isintended for the qualitative detection of RNA from RSV in nasopharyngeal and oropharygeal swabs from individuals who are suspected of RSV by their healther care provider. Virokey Influenza B PCR* Negative Negative Note: Preferable reference range is Negative, reference range does not indicate your result. Please see the Value/Result column for your actual result. Note: The [employer] Influenza B RT PCR assay is assesed using the Message[employer]er SX Virus Nucleic Acid Kit on the [employer] SX101, as well as RT-PCR run on the [employer]201 insturment from [employer]. The [employer] Influenza A RT PCR has not been FDA cleared or approved; it has been authorized by the FDA under an EUA for use by authorized high complexity laboratories. This test isintended for the qualitative detection of RNA from Influenza A/B in nasopharyngeal and oropharygeal swabs from individuals who are suspected of Influenza B by their healther care provider. ViroKey SARS-CoV-2 RT PCR Negative Negati ve\.br\(Ref er to value/result column\.br\for results) Note: Preferable reference range is Negative, reference range does not indicate your result. Please see the Value/Result column for your actual result. Note: The ViroKey SARS-CoV-2 RT PCR assay is assesed using the ViroKey SX Virus Nucleic Acid Kit on the [employer] SX101, as well as RT-PCR run on the [employer] SA201 insturment from [employer]. The ViroKey SARS-CoV-2 RT PCR has not been FDA cleared or approved; it has been authorized by the FDA under an EUA for use by authorized high complexity laboratories. This test isintended for the qualitative detection of RNA from SARS-CoV-2 in nasopharyngeal and oropharygeal swabs from individuals who are suspected of COVID-19 by their healther care provider. The ViroKey SARS-CoV-2 RT PCR is only authorized for the duration of the declaration that circumstances exists justifying the authorization of emergency use of in vitro diagnostic tests for detection and/or diagnosis of COVIC-19 under Section 564(b)(1) of Act, 21 U.S.C SS 360bb-3(b)(1), unless the authorization is terminated or revoked. US Reflux Venous BLE* Reviewed date:10/20/2024 07:49:55 [...] hypertrophy and facet arthropathy. There is associated crdp-fu-pwfuorzb left and mild right foraminal stenosis. There [...] similar to the previous MRI. Stenosis is crvcplbh-lv-sswcjg at L3-4 and L5-S1, only qrii-pu-iiycnxyx at the other levels. Nerve root impingement [...] range does not indicate your result. Please see the Value/Result column for your actual result. Note: The ViroKey Influenza A RT PCR assay is assesed using the [employer] SX Virus Nucleic Acid Kit on the [employer] SX101, as well as RT-PCR run on the [employer] SA201 insturment from [employer]. The ViroKey Influenza A RT PCR has not been FDA cleared or approved; it has been authorized by the FDA under an EUA for use by authorized high complexity laboratories. This test isintended for the qualitative detection of RNA from Influenza A/B in nasopharyngeal and oropharygeal swabs from individuals who are suspected of Influenza A by their healther care provider. Virokey Respiratory Syncytial Virus (RSV)* Negative Negative\.br\(Ref er to value/result column\.br\for results) Note: Preferable reference range is Negative, reference range does not indicate your result. Please see the Value/Result column for your actual result. Note: The [employer] RSV RT PCR assay is assesed using the [employer] SX Virus Nucleic Acid Kit on the [employer] SX101, as well as RT-PCR run on the [employer]201 insturment from [employer]. The [employer] Influenza A/B RT PCR has not been FDA cleared or approved; it has been authorized by the FDA under an EUA for use by authorized high complexity laboratories. This test isintended for the qualitative detection of RNA from RSV in nasopharyngeal and oropharygeal swabs from individuals who are suspected of RSV by their healther care provider. Virokey Influenza B PCR* Negative Negative Note: Preferable reference range is Negative, reference range does not indicate your result. Please see the Value/Result column for your actual result. Note: The [employer] Influenza B RT PCR assay is assesed using the Message[employer] SX Virus Nucleic Acid Kit on the [employer] SX101, as well as RT-PCR run on the [employer]201 insturment from [employer]. The [employer] Influenza A RT PCR has not been FDA cleared or approved; it has been authorized by the FDA under an EUA for use by authorized high complexity laboratories. This test isintended for the qualitative detection of RNA from Influenza A/B in nasopharyngeal and oropharygeal swabs from individuals who are suspected of Influenza B by their healther care provider. ViroKey SARS-CoV-2 RT PCR Negative Negati ve\.br\(Ref er to value/result column\.br\for results) Note: Preferable reference range is Negative, reference range does not indicate your result. Please see the Value/Result column for your actual result. Note: The ViroKey SARS-CoV-2 RT PCR assay is assesed using the ViroKey SX Virus Nucleic Acid Kit on the [employer] SX101, as well as RT-PCR run on the [employer] SA201 insturment from [employer]. The ViroKey SARS-CoV-2 RT PCR has not been FDA cleared or approved; it has been authorized by the FDA under an EUA for use by authorized high complexity laboratories. This test isintended for the qualitative detection of RNA from SARS-CoV-2 in nasopharyngeal and oropharygeal swabs from individuals who are suspected of COVID-19 by their healther care provider. The ViroKey SARS-CoV-2 RT PCR is only authorized for the duration of the declaration that circumstances exists justifying the authorization of emergency use of in vitro diagnostic tests for detection and/or diagnosis of COVIC-19 under Section 564(b)(1) of Act, 21 U.S.C SS 360bb-3(b)(1), unless the authorization is terminated or revoked. i-STAT Metabolic Panel *(301 4) w/ Ionized Calcium Reviewed date:12/02/2024 04:45:40 PM Interpretation: Performing Lab: Notes/Report: Reason For Referral Diagnosis 1 Pain in right foot ( M79.671) Diagnosis 2 Pain in left foot (M 79.672) Referral Organization [facility] Referring Provider First Name BEBETO Referring Provider Last Name NELLY Referring Provider [facility] edicine Referred Organization [facility] Referred Provider GRACE HERRERA Referred Address [address], [place],[address], Referred Provider Specialty Podiatry Referral Priority Routine Diagnosis 1 Accidental fall, ini tial encounter (W19.XXXA) Referral Organization [facility] Referring Provider First Name BEBETO Referring Provider Last Name NELLY Referring Provider [facility] Referred Provider Specialty [facility] Referral Priority Routine Diagnosis 1 Scoliosis of thoraco lumbar spine, unspecified scoliosis type (M41.9) Referral Organization [facility] Referring Provider First Name BEBETO Referring Provider Last Name NELLY Referring Provider Speciality Internal M edicine Referred Organization [facility] Referred Provider JANET SHIPMAN Referred Address [address] [place],[address],[place] Referred Provider Specialty Orthopedic S urgery Referral Priority Routine Diagnosis 1 Chest pain, unspecif ied type (R07.9) Referral Organization [facility] Referring Provider First Name BEBETO Referring Provider Last Name NELLY Referring Provider Speciality Internal M edicine Referred Organization [facility] Referred Provider MARY TRAORE [facility] [address] [place] Referred Provider Specialty Cardiology Referral Priority Routine Reason CT CHEST W* Diagnosis 1 Elevated LDH (R74.02 ) Referring Provider First Name Maykel Referring Provider Last Name Ilana Referring Provider Speciality Hematology /Oncology Referred Organization [facility] Referred Provider LUÍS MELÉNDEZ Referred Address [address] [place], [place],[address],[place] Referred Provider Specialty Diagnostic R adiology Procedure 1 CT THORAX W/DYE (712 60) General Notes Kye Cunningham 10/02 11:22:49 AM >APPROVED PER NOTES IN APPT 09/19/2024 Referral Priority Routine Reason CT ABD & PELV W* Diagnosis 1 Elevated LDH (R74.02 ) Referring Provider First Name Maykel Referring Provider Last Name Ilana Referring Provider Speciality Hematology /Oncology Referred Organization [facility] Referred Provider LUÍS MELÉNDEZ Referred Address [address] [place],[address],[place] Referred Provider Specialty Diagnostic R adiology General Notes MarisaKye rea 10/02 11:35:38 AM >APPROVED PER NOTES ON APPT 09/19/24 Referral Priority Routine Reason AD REFLUX Diagnosis 1 Lower extremity mario a (R60.0) Referral Organization [facility] Referring Provider First Name MARY Referring Provider Last Name LEÓN Referring Provider Speciality Cardiology Referred Organization [facility] Referred Provider MARY TRAORE Referred Address [address] [place],[address],[place] Referred Provider Specialty Cardiology Procedure 1 LOWER EXTREMITY STUD Y (29824) Procedure 2 EXTREMITY STUDY (975 80) General Notes Kinza Chicas 11/2024 03:32:44 PM >IVA,CALLREF#[id number] S 10/08/2024 3:20PM (JOSE S) Referral Priority Routine Diagnosis 1 Lumbar spondylosis ( M47.816) Referral Organization [facility] Referring Provider First Name BEBETO Referring Provider Last Name NELLY Referring Provider Speciality Internal M edicine Referred Provider Specialty Pain Managem ent\-MD Susana Referral Priority Routine Reason MRI L SPINE W/O Diagnosis 1 Lumbar radiculopathy (M54.16) Referral Organization [facility] Referring Provider First Name RODOLFO Referring Provider Last Name SUSANA Referring Provider Speciality Pain Medic ine Referred Organization [facility] Referred Provider LUÍS MELÉNDEZ Referred Address [address] [place],[address], Referred Provider Specialty Diagnostic R adiology Procedure 1 MRI LUMBAR SPINE W/O DYE (42366) Referral Priority Routine Reason MRI T SPINE W/O Diagnosis 1 Thoracic radiculopat hy (M54.14) Referral Organization [facility] Referring Provider First Name RODOLFO Referring Provider Last Name SUSANA Referring Provider Speciality Pain Medic ine Referred Organization [facility] Referred Provider LUÍS MELÉNDEZ Referred Address [address] [place], [place],[address], Referred Provider Specialty Diagnostic R adiology Procedure 1 MRI THORACIC SPINE W /O DYE (75088) Referral Priority Routine Diagnosis 1 Lower extremity mario a (R60.0) Referral Organization [facility] Referring Provider First Name MARY Referring Provider Last Name LEÓN Referring Provider Speciality Cardiology Referred Provider Specialty Cardiovascul ar \\- Jarek Verma MD Referral Priority Routine Reason ECHO Diagnosis 1 Lower extremity mario a (R60.0) Referral Organization [facility] Referring Provider First Name MARY Referring Provider Last Name LEÓN Referring Provider Speciality Cardiology Referred Organization [facility] Referred Provider MARY TRAORE Referred Address [address] [place], [place],[address],[place] Referred Provider Specialty Cardiology Procedure 1 TTE W/DOPPLER, COMPL ETE (17812) General Notes Leonidas Potter 2024 10:23:56 AM >IVA,REF#[id number] Shen Culver Referral Priority Routine Diagnosis 1 Lower extremity mario a (R60.0) Referral Organization [facility] Referring Provider First Name MARY Referring Provider Last Name LEÓN Referring Provider Speciality Cardiology Referred Provider Specialty Cardiovascul ar Disease Referral Priority Routine Diagnosis 1 Lumbar radiculopathy (M54.16) Referral Organization [facility] Referring Provider First Name BEBETO Referring Provider Last Name NELLY Referring Provider Speciality Internal M edicine Referred Organization [facility] Referred Provider FABIEN HANSON Referred Address [address], [place],[address], Referred Provider Specialty Orthopedic S urgery Referral Priority Routine Medications Medication SIG (Take, Route, Frequency, Duration) Notes Start Date End Date Status Naproxen 500 MG Tablet TAKE 1 TABLET [...] day; Duration: 30 days 11/26/2024 Active Sutab 3971-677-054 MG Tablet 12 tablets the first dose [...] Twice a day; Duration: 90 days Active Trelegy Ellipta 100-62.5-25 MCG/ACT Aerosol Powder Breath Activated 1 puff Inhalation Once a day; Duration: 30 days 07/26/2024 Active GaviLyte-C 240 GM Solution Reconstituted milliliter Orally prescribe; Duration: 1 days 10/25/2024 Active Vitamin D (Ergocalciferol) 1.25 MG (70658 UT) Capsule TAKE 1 CAPSULE BY MOUTH ONE TIME PER WEEK FOR 90 DAYS; Duration: 90 Active Lisinopril 5 MG Tablet 1 tablet Orally O nce a day; Duration: 90 days 11/11/2024 Active Montelukast Sodium 10 MG Tablet TAKE 1 TABLET BY MOUTH EVERY DAY; Duration: 90 Active Immunizations Vaccine Route Administration Date Status Comme nts Influenza (whole), CPT 39836 Inactive Unknown 05/27/2015 Pending (Juanito) Fluzone Quadrivalent (3 years+), NOT PRSV free [...] Status W/U Status Risk Notes Problem Overweight (869846141) Overweight (E66.3) Active confirmed Problem Metabolic disorder (34735093) Metabolic disorder, unspecified (E88.9) Active confirmed Problem Primary insomnia (6992636) Primary insomnia (F51.01) Active confirmed Treatment Plan: [...] refills as discussed. Problem Chronic pain syndrome (175958500) Chronic pain syndrome (G89.4) Active confirmed Problem Lymphedema (613000524) Lymphedema, not elsewhere classified (I89.0) Active confirmed Problem Thoracic radiculopathy (59529425) Intervertebral disc disorders with radiculopathy, thoracic region (M51.14) Active confirmed Problem Sciatica (25750280) Lumbago with sciatica, left side (M54.42) Active confirmed Problem Hesitancy of micturition (9764287) Hesitancy of micturition (R39.11) Active confirmed Problem Carpal tunnel syndrome of right wrist (825186934716650) Carpal tunnel syndrome of right wrist (G56.01) Active confirmed Problem Essential hypertension (36640856) Essential hypertension (I10) Active confirmed Problem Vitamin D deficiency (75558984) Vitamin D deficiency (E55.9) Active confirmed Problem Lumbar radiculopathy (306605820) Lumbar radiculopathy (M54.16) Active confirmed Problem Chest pain (51463358) Chest pain, unspecified type (R07.9) Active confirmed Problem Obese class I (finding) (436389124849918) Obesity (BMI 30.0-34.9) (E66.9) Active confirmed Problem Seasonal allergy (886534665) Seasonal allergies (J30.2) Active confirmed Problem Gastroesophageal reflux disease (767498388) Gastroesophageal reflux disease, esophagitis presence not specified (K21.9) Active confirmed Problem Allergic rhinitis (93196461) Allergic rhinitis (J30.9) Active confirmed Problem Fatty liver (073762304) Fatty liver (K76.0) Active confirmed Problem Low back pain (finding) (830483718) Low back pain without sciatica, unspecified back pain laterality, unspecified chronicity (M54.5) Active confirmed Problem Exacerbation of intermittent asthma (440652972) Allergic asthma, mild intermittent, with acute exacerbation (J45.21) Active confirmed Problem Essential hypertension (09056975) Accelerated hypertension (I10) Active confirmed Problem Degeneration of cervical intervertebral disc (57048610) Degenerative disc disease, cervical (M50.30) Active confirmed Problem Displacement of lumbar intervertebral disc without myelopathy (27727384) Bulging lumbar disc (M51.26) Active confirmed Problem Degeneration of lumbar intervertebral disc (41454069) Lumbar degenerative disc disease (M51.36) Active confirmed TREATMENT PLAN: -Medication Refill: Refill the patient's current medication as requested. -Blood Work: Order blood tests to check kidney and liver function, and screen for hepatitis. -Specialist Referrals:Sche dule follow-up with Dr. Alie Reyna for further evaluation. -Schedule follow-up with Dr. Shipman for potential injection therapy for the left knee. -Colonoscopy Referral: Refer the patient for a colonoscopy.Pa tient Instructions: -Advise the patient not to drink alcohol or drive while taking the medication. FOLLOW-UP DISCUSSION: The patient will be contacted by dental office receptionist to schedule follow-up appointments with Dr. [...] to receive a referral Problem Atrophic gastritis (22237613) Antral gastritis (K29.50) Active confirmed Problem Dry eyes (201445742) Dry eyes (H04.123) Active confirmed Problem History of chest pain (51312636426141392 ) Hx of chest pain (Z87.898) Active confirmed Problem Occupational injury (800982846) Work related injury (Y99.0) Active confirmed Problem Thoracic radiculopathy (46742731) Thoracic radiculopathy (M54.14) Active confirmed Problem Duodenal ulcer (13356667) Duodenal ulcer (K26.9) Active confirmed Problem Displacement of cervical intervertebral disc without myelopathy (26159487) Bulging of cervical intervertebral disc (M50.20) Active confirmed Problem Sciatica (26302168) Acute low back pain with left-sided sciatica, unspecified back pain laterality (M54.42) Active confirmed Problem Disorder of lumbar disc (851970587) Lumbar disc disorder (M51.9) Active confirmed Problem Chondromalacia of left patella (350939314900035) 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) Active confirmed Problem Chondromalacia of right patella (15168734035253027 ) 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) Active confirmed Problem Patellofemoral disorder, unspecified laterality (M22.2X9) Active confirmed Problem Scoliosis (071419928) Scoliosis of thoracolumbar spine, unspecified scoliosis type (M41.9) Active confirmed Problem Bilateral carpal tunnel syndrome (06132456367372622 ) Bilateral carpal tunnel syndrome (G56.03) Active confirmed Problem Chronic idiopathic constipation (35395159) Chronic idiopathic constipation (K59.04) Active confirmed Problem Benign prostatic hypertrophy without outflow obstruction (619300000) Benign prostatic hyperplasia without lower urinary tract symptoms (N40.0) Active confirmed Problem Lower urinary tract symptoms due to benign prostatic hypertrophy (46935069900610) Benign prostatic hyperplasia with lower urinary tract symptoms (N40.1) Active confirmed Problem Carpal tunnel syndrome (18747497) Carpal tunnel syndrome on both sides (G56.03) Active confirmed Problem Lumbar spondylosis (096924632) Lumbar spondylosis (M47.816) Active confirmed Problem Essential hypertension (05318587) Essential (primary) hypertension (I10) Active confirmed Problem Exposure to communicable disease (262515153) Contact with and (suspected) exposure to other viral communicable diseases (Z20.828) Active confirmed Problem Degeneration of lumbar intervertebral disc (64013296) Other intervertebral disc degeneration, lumbar region (M51.36) Active confirmed Problem Lumbar radiculopathy (259414573) Radiculopathy, lumbar region (M54.16) Active confirmed Problem Balanitis (14695224) Balanitis (N48.1) Active confirmed Problem Thoracic radiculopathy (16448110) Radiculopathy, thoracic region (M54.14) Active confirmed Problem Lumbosacral spondylosis without myelopathy (disorder) (30573544) Spondylosis without myelopathy or radiculopathy, lumbosacral region (M47.817) Active confirmed Problem Infection of bilateral eyes (71715090388111229 ) Eye infection, bilateral (H44.003) Active confirmed Problem Arthritis of left acromioclavicular joint (0611700583039680) 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) Active confirmed Problem Herniation of nucleus pulposus of lumbar intervertebral disc co-occurrent with sciatica (943264475968548) Herniation of lumbar intervertebral disc with radiculopathy (M51.16) Active confirmed Problem Chronic pain (29793425) Chronic pain (G89.4) Active confirmed Problem Chronic pain (62225811) Chronic pain (G89.29) Active confirmed Problem Arthropathy of lumbar facet joint (069826952) Lumbar facet arthropathy (M47.816) Active confirmed Problem Cervical spondylosis (652947592) Cervical spondylosis (M47.812) Active confirmed Problem Lumbosacral spondylosis without myelopathy (25142171) Facet arthritis of lumbosacral region (M47.817) Active confirmed Problem Varicose veins of bilateral lower limbs (57928762400477497 ) Varicose veins of bilateral lower extremities w/ other complications (I83.893) Active confirmed Problem Post-acute COVID-19 (disorder) (8692557678) 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) Active confirmed Problem Non-pressure chronic ulcer of lower leg, limited to breakdown of skin, unspecified laterality (L97.901) Active confirmed Problem Patellofemoral syndrome (332999731) Patellofemoral syndrome, right (M22.2X1) Active confirmed Problem 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) Active confirmed Problem Opioid dependence (98172530) Long-term current use of methadone for opiate dependence (F11.20) Active confirmed Problem Monoarthritis of knee, 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) Active confirmed Vital Signs Heart Rate 64 /min 02/25/2025 Temperature 97.8 degrees Fahrenheit 02/25/2025 Respiratory Rate 16 /min 02/25/2025 Oximetry 97 % 02/25/2025 Blood pressure diastolic 93 mm Hg 02/25/2025 Weight-kg 88.45 kg 06/02/2025 Height 67 in 06/02/2025 Blood pressure systolic 155 mm Hg 02/25/2025 Weight 195 lbs 06/02/2025 BMI 30.54 kg/m2 06/02/2025 Procedures Procedure Date Ordered Date Performed Result Body Sit e IV Insertion 09/13/2024 09/13/2024 N/A Encounters Encounter Location Date Provider Diagnosis [address] [place] [address] 08/15/2024 HIRAM BUCK Encounter for annual general medical examination with abnormal findings in adult Z00.01 ; Lumbar radiculopathy M54.16 ; Primary insomnia F51.01 ; Allergic asthma, mild intermittent, with acute exacerbation J45.21 ; Colon cancer screening Z12.11 ; Advanced care planning/counseling discussion Z71.89 and Left ankle pain M25.572 [address] [place] [address] 08/26/2024 BEBETO VILLEGAS Lumbar disc disorder M51.9 [address] [place] [address] 08/29/2024 GRACE HERRERA Other enthesopathy o f right foot and ankle M77.51 ; Valgus deformity, not elsewhere classified, right ankle M21.071 ; Valgus deformity, not elsewhere classified, left ankle M21.072 ; Posterior tibial tendon dysfunction, right M76.821 and Pain in right foot M79.671 [address] [place] [address] 09/02/2024 BEBETO VILLEGAS Generalized body aches R52 and Lumbago with sciatica, left side M54.[address] [place] [address] 09/13/2024 BEBETO VILLEGAS Accidental fall, initial encounter W19.XXXA ; Encounter related to worker's compensation claim Z02.6 ; Acute pain due to trauma G89.11 and Rib pain on right side R07.[address] [place] [address] 09/13/2024 BEBETO VILLEGAS 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 and Lumbar radiculopathy M54.[address] [place] [address] 09/16/2024 BEBETO VILLEGAS Scoliosis of thoracolumbar spine, unspecified scoliosis type M41.9 and Other chronic pain G89.[address] [place] [address] 09/16/2024 BEBETO VILLEGAS Closed fracture of multiple ribs of right side, initial encounter S22.41XA ; Encounter related to worker''s compensation claim Z02.6 and Encounter for issuance of medical certificate Z02.[address] [place] [address] 09/19/2024 BEBETO VILLEGAS Rib pain R07.81 and Encounter related to worker's compensation claim Z02.[address] [place] [address] 09/26/2024 BEBETO VILLEGAS Closed fracture of multiple ribs of right side, initial encounter S22.41XA ; Encounter related to worker's compensation claim Z02.6 and Lumbar disc disorder M51.[address] [place] [address] 09/26/2024 BEBETO VILLEGAS Nonintractable headache, unspecified chronicity pattern, unspecified headache type R51.9 and Chest pain, unspecified type R07.[address] [place] [address] 10/11/2024 BEBETO VILLEGAS Primary insomnia F51.01 ; Lumbar disc disorder M51.9 ; Lumbar radiculopathy M54.16 ; Acute cough R05.1 ; 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 and Allergic asthma, mild intermittent, with acute exacerbation J45.[address] [place] [address] 10/11/2024 BEBETO VILLEGAS Closed fracture of multiple ribs of right side, initial encounter S22.41XA ; Encounter related to worker''s compensation claim Z02.6 and Encounter for issuance of medical certificate Z02.[address] [place] [address] 10/14/2024 BEBETO VILLEGAS URI (upper respiratory infection) J06.9 ; Sinus pressure J34.89 ; Dry eyes H04.123 ; Cough R05.9 ; Headache G44.319 and Low grade fever R50.[address] [place] [address] 10/24/2024 BEBETO VILLEGAS Lumbar spondylosis M47.[address] [place] [address] 10/28/2024 BEBETO VILLEGAS Rib pain on right side R07.81 ; Closed fracture of multiple ribs of right side, initial encounter S22.41XA and Encounter related to worker's compensation claim Z02.[address] [place] [address] 11/05/2024 BEBETO VILLEGAS Primary insomnia F51.01 and Other chronic pain G89.[address] [place] [address] 11/05/2024 BEBETO VILLEGAS Rib pain on right side R07.81 ; Closed fracture of multiple ribs of right side, initial encounter S22.41XA ; Herniation of lumbar intervertebral disc with radiculopathy M51.16 ; Encounter related to worker's compensation claim Z02.6 and Intervertebral disc disorders with radiculopathy, thoracic region M51.[address] [place] [address] 11/08/2024 BEBETO NELLY Encounter related to worker''s compensation claim Z02.6 ; Chronic pain G89.29 ; Encounter for issuance of medical certificate Z02.79 ; Rib pain on right side R07.81 ; Closed fracture of multiple ribs of right side, initial encounter S22.41XA ; Herniation of lumbar intervertebral disc with radiculopathy M51.16 and Intervertebral disc disorders with radiculopathy, thoracic region M51.[address] [place] [address] 11/12/2024 BEBETO VILLEGAS [address] [place] [address] 11/12/2024 BEBETO VILLEGAS Primary insomnia F51.01 ; Chondromalacia, right knee M94.261 ; Other chronic pain G89.29 and Lumbar radiculopathy M54.[address] [place] [address] 11/15/2024 BEBETO VILLEGAS Lumbar radiculopathy M54.16 ; Chronic pain syndrome G89.4 and Encounter related to worker's compensation claim Z02.[address] [place] [address] 11/26/2024 BEBETO VILLEGAS Acute cough R05.1 ; Acute URI J06.9 and Allergic rhinitis J30.[address] [place] [address] 11/26/2024 BEBETO VILLEGAS Rib pain on right side R07.81 ; Closed fracture of multiple ribs of right side, initial encounter S22.41XA ; Encounter related to worker's compensation claim Z02.6 ; Herniation of lumbar intervertebral disc with radiculopathy M51.16 and Intervertebral disc disorders with radiculopathy, thoracic region M51.[address] [place] [address] 12/05/2024 BEBETO VILLEGAS Primary insomnia F51.01 ; Lumbar radiculopathy M54.16 and Medication management Z79.[address] [place] [address] 12/26/2024 BEBETO VILLEGAS Encounter to discuss test results Z71.89 ; Lumbar radiculopathy M54.16 ; Chronic cough R05.3 ; Essential hypertension I10 ; Lower extremity edema R60.0 and Obesity (BMI 30.0-34.9) E66.[address] [place] [address] 12/26/2024 BEBETO VILLEGAS Closed fracture of multiple ribs of right side, initial encounter S22.41XA ; Rib pain on right side R07.81 ; Encounter related to worker's compensation claim Z02.6 ; Herniation of lumbar intervertebral disc with radiculopathy M51.16 ; Intervertebral disc disorders with radiculopathy, thoracic region M51.14 and Back pain M54.[address] [place] [address] 01/02/2025 BEBETO VILLEGAS Chest congestion R09.89 ; Medication management Z79.899 ; Cough R05.9 ; Sinus pressure J34.89 ; Lumbar radiculopathy M54.16 ; Primary insomnia F51.01 ; Allergic asthma, mild intermittent, with acute exacerbation J45.21 and prison current use of opiate analgesic Z79.[address] [place] [address] 01/02/2025 BEBETO VILLEGAS Rib pain on right side R07.81 ; Closed fracture of multiple ribs of right side, initial encounter S22.41XA ; Encounter related to worker's compensation claim Z02.6 ; Herniation of lumbar intervertebral disc with radiculopathy M51.16 ; Intervertebral disc disorders with radiculopathy, thoracic region M51.14 and Back pain M54.[address] [place] [address] 02/10/2025 BEBETO VILLEGAS Lumbar radiculopathy M54.16 ; Allergic asthma, mild intermittent, with acute exacerbation J45.21 ; Seasonal allergies J30.2 ; Primary insomnia F51.01 ; Other chronic pain G89.29 and 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 [place] 03/07/2025 BEBETO VILLEGAS Lumbar radiculopathy M54.16 ; Primary insomnia F51.01 ; Seasonal allergies J30.2 ; Vitamin D deficiency E55.9 and prison current use of opiate analgesic Z79.891 [address] [place] [address] 03/13/2025 BEBETO VILLEGAS [address] [place] 05/27/2025 BEBETO VILLEGAS Lumbar radiculopathy M54.16 ; Abdominal pain R10.84 ; prison current use of opiate analgesic Z79.891 and Medication management Z79.[address] [place] 06/02/2025 BEBETO VILLEGAS Essential hypertension I10 ; Abdominal pain R10.84 and Medication management Z79.[address] [place] 06/12/2025 BEBETO VILLEGAS Lumbar radiculopathy M54.16 ; Shoulder pain M25.512 and Encounter related to worker's compensation claim Z02.[address] [place] 06/17/2025 BEBETO VILLEGAS URI (upper respiratory infection) J06.9 and Cough R05.[address] [facility] [address] [place] [address] 08/13/2024 CALE GUERRERO Lumbar radiculopathy M54.16 and Other chronic pain G89.[address] [facility] [address] [place] [address] 08/19/2024 CALE DEMKIMOS COVID-19 U07.1 and Fever, unspecified fever cause R50.[address] [place] [address] 08/19/[address] [facility] [address] [place] [address] 08/27/[address] [facility] [address] [place] [address] 08/29/2024 GRACE HERRERA [facility] [address] [place] [address] 08/30/2024 BEBETO VILLEGAS [facility] [address] [place] [address] 09/02/2024 BEBETO VILLEGAS [address] [place] [address] 09/03/2024 BEBETO VILLEGAS [facility] [address] [place] [address] 09/04/2024 RODOLFO SELBY [facility] [address] [place] [address] 09/16/2024 RODOLFO SELBY Lumbar radiculopathy M54.16 ; Facet arthritis of lumbosacral region M47.817 ; Thoracic radiculopathy M54.14 and Lumbar spondylosis M47.[address] [place] [address] 09/13/2024 IRENE GUALLPA Injury of abdomen, initial encounter S39.91XA and Rib pain on right side R07.[address] 09/13/2024 IRENE GUALLPA [facility] [address] [place] 09/13/2024 CEASAR DALYEVER Closed fracture of multiple ribs of right side, initial encounter S22.41XA [address] [place] [address] [address] [place] 09/18/2024 RODOLFOCHARMAINE SELBY Lumbar radiculopathy M54.16 ; Facet arthritis of lumbosacral region M47.817 ; Thoracic radiculopathy M54.14 and Lumbar spondylosis M47.[address] 09/19/2024 JANET SHIPMAN Closed fracture of multiple ribs of right side, initial encounter S22.41XA ; Encounter related to worker's compensation claim Z02.6 ; Lumbar disc disorder M51.9 and Right hip pain M25.[address] [place] [address] 09/18/2024 IRENE GUALLPA Closed fracture of multiple ribs of right side with routine healing, subsequent encounter S22.41XD [address] [place] [address] 09/19/2024 BEBETO VILLEGAS Chronic pain G89.[address] [facility] [address] [place] [address] 09/19/2024 JANET SHIPMAN [facility] [address] [place] [address] 09/19/2024 BEBETO VILLEGAS [facility] [address] [place] [address] 09/24/2024 BEBETO VILLEGAS Primary insomnia F51.01 [facility] [address] [place] [address] 10/01/2024 MARY TRAORE Essential hypertension I10 ; Obesity (BMI 30.0-34.9) E66.9 ; Pain in right leg M79.604 ; Pain in left leg M79.605 and Lower extremity edema R60.[address] [address] 09/30/2024 BEBETO VILLEGAS Back pain M54.[address] [place], [place] [address] 09/30/2024 ALIE SCHULTE Screen for colon cancer Z12.11 [facility] [address] [place] [address] 10/18/2024 MARY LEÓN Lower extremity mario a R60.0 [facility] [address] [place] [address] 10/18/2024 MARY LEÓN Lower extremity mario a R60.[address] [place] [address] 10/02/2024 PPROVIDER OUTSIDE Generalized abdomina l pain R10.[address] [address] 10/02/2024 PPROVIDER OUTSIDE [address] [place] [address] 10/02/2024 BEBETO VILLEGAS [address] [place] [address] 10/02/2024 PPROVIDER OUTSIDE [address] [place] [address] 10/16/2024 BEBETO CANTU (upper respiratory infection) J06.9 [facility] [address] [place] [address] 10/21/2024 RODOLFO SELBY [facility] [address] [place] [address] 10/24/2024 BEBETO VILLEGAS [facility] [address] [place] [address] 10/25/2024 RODOLFOCHARMAINE SELBY Thoracic radiculopathy M54.14 ; Lumbar radiculopathy M54.16 ; Lumbar spondylosis M47.816 and Work related injury Y99.0 [facility] [address] [place] [address] 10/29/2024 RODOLFO SELBY Thoracic radiculopathy M54.14 [facility] [address] [place] [address] 10/29/2024 RODOLFO SELBY Lumbar radiculopathy M54.16 and Lumbar spondylosis M47.816 [facility] [address] [place] [address] 10/25/2024 ALIE SCHULTE [address] [place] [address] 10/25/2024 BEBETO VILLEGAS [facility] [address] [place] [address] 10/25/2024 RODOLFO SELBY [facility] [address] [place] [address] 11/02/2024 RODOLFO SELBY Lumbar radiculopathy M54.16 ; Lumbar spondylosis M47.816 ; Thoracic radiculopathy M54.14 and Work related injury Y99.0 [facility] [address] [place] [address] 11/02/2024 RODOLFO SELBY [facility] [address] [place] [address] 11/11/2024 MARY TRAORE Essential hypertension I10 ; Obesity (BMI 30.0-34.9) E66.9 ; Pain in right leg M79.604 ; Pain in left leg M79.605 and Lower extremity edema R60.0 [facility] [address] [place] [address] 11/06/2024 RODOLFO GUERRANJGROVER [address] [place] [address] 11/07/2024 [facility] [address] [place] [address] 12/06/2024 MARY TRAORE Lower extremity mario a R60.[address] [address] 11/26/2024 [facility] [address] [place] [address] 11/26/2024 [facility] [address] [place] [address] 11/26/2024 [facility] [address] [place] [address] 11/28/2024 [facility] [address] [place] [address] 11/29/2024 RODOLFO SELBY Lumbar radiculopathy M54.16 ; Lumbar spondylosis M47.816 ; Thoracic radiculopathy M54.14 and Work related injury Y99.0 [facility] [address] [place] [address] 11/29/2024 [facility] [address] [place] [address] 11/29/2024 [facility] [address] [place] [address] 12/02/2024 ERIN CONLEY Upper respiratory tract infection, unspecified type J06.[address] [address] 12/09/2024 [facility] [address] [place] [address] 12/18/2024 RODOLFO SELBY [address] [address] 12/18/2024 IRENE GUALLPA [facility] [address] [place] [address] 12/23/2024 RODOLFO SELBY Lumbar radiculopathy M54.16 ; Lumbar spondylosis M47.816 ; Thoracic radiculopathy M54.14 and Work related injury Y99.0 [facility] [address] [place] [address] 12/23/2024 ERIN CONLEY Upper respiratory tract infection, unspecified type J06.9 [facility] [address] [place] [address] 12/24/2024 MARY LEÓN Lower extremity mario a R60.0 ; Essential hypertension I10 ; Obesity (BMI 30.0-34.9) E66.9 ; Pain in right leg M79.604 and Pain in left leg M79.605 [facility] [address] [place] [address] 12/27/2024 BEBETO VILLEGAS [address] [address] 01/29/2025 BEBETO VILLEGAS [address] [address] 02/11/2025 BEBETO VILLEGAS Back pain M54.9 [facility] [address] [place] [address] 02/25/2025 BEBETO VILLEGAS Primary insomnia F51.01 [facility] [address] [place] [address] 02/25/2025 ERIN CONLEY Other low back pain M54.59 [facility] [address] [place] [address] 03/10/2025 BEBETO VILLEGAS [facility] [address] [place] [address] 04/09/2025 BEBETO VILLEGAS [facility] [address] [place] [address] 05/27/2025 BEBETO VILLEGAS Lumbar radiculopathy M54.16 [facility] [address] [place] [address] 05/27/2025 BEBETO VILLEGAS Primary insomnia F51.01 and Lumbar radiculopathy M54.16 [facility] [address] [place] [address] 05/29/2025 BEBETO VILLEGAS [facility] [address] [place] [address] 06/02/2025 BEBETO VILLEGAS [facility] [address] [place] [address] 06/12/2025 BEBETO VILLEGAS [facility] [address] [place] [address] 06/13/2025 BEBETOJORGE VILLEGAS [facility] [address] [place] [address] 06/17/2025 BEBETO VILLEGAS Lumbar radiculopathy M54.16 and Primary insomnia F51.01 [facility] [address] [place] [address] 06/17/2025 BEBETO VILLEGAS Assessments Encounter Date Diagnosis (ICD Code) Assessment Notes Treatment Notes Treatment Clinical Notes Section Notes 09/02/2024 Generalized body aches (ICD-10 - R52) [...] problems.Non-pha rmacological Strategies: Dietary changes to include S04-njce foods (e.g., meat, poultry, fish, eggs, dairy). 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 Preciado, to discuss long-term pain management [...] and mobility. Continued coordinated care with Dr. Selby is critical, particularly to manage pain and monitor healing progress. Referral to pain management may offer relief through potential interventions like nerve blocks or targeted injections. Treatment Plan: Patient was advised to continue follow-up with Dr. Selby. [facility] paperwork was facilitated for a planned recovery [...] Discussion: The patient will remain under Dr. Selby's care and has been advised to keep [...] fractures. The patient requests an extension for [facility] paperwork related to this injury. He has been consulting with Dr. Selby, who has ordered MRIs for further evaluation [...] additional injuries or complications. Treatment Plan The [facility] paperwork was completed and signed to accommodate [...] and improve function. Continued follow-up with Dr. Selby and coordination of care for further interventions [...] communication with his care providers, including Dr. Selby and any additional specialists, will help tailor [...] assessed. Referral to orthopedic surgery (Dr. Fabien Hanson) was provided for further evaluation and [...] 5. Follow-up appointment scheduled in four weeks. 06/17/2025 URI (upper respiratory infection) (ICD-10 - [...] Follow-up appointment scheduled in four weeks. 06/17/2025 Lumbar radiculopathy (ICD-10 - M54.16) 06/17/2025 Primary insomnia (ICD-10 - F51.01) 06/17/2025 Cough (ICD-10 - R05.9) Benzonatate 100 [...] 6. Follow-up appointment scheduled in four weeks. 06/12/2025 Shoulder pain (ICD-10 - M25.512) Referral to orthopedic surgery for further evaluation was provided. Medical Decision Making (MDM) and Treatment Plan: The patient's lumbar radiculopathy and right shoulder pain were assessed. Referral to orthopedic surgery (Dr. Fabien Hanson) was provided for further evaluation and [...] good efficacy and no adverse effects. The SALES ARCHITECT I-STOP was reviewed to ensure appropriate use [...] dependence, sedation, constipation, and respiratory depression. The SALES ARCHITECT I-STOP was reviewed to ensure appropriate use [...] times daily for chronic pain management. The SALES ARCHITECT I-STOP was reviewed for appropriate use. 2. [...] at T12-L1 level. MRI is also showing jxhnqqvi-bs-jgfx re foraminal stenosis at L3-L4, L4-L5 and L5-S1 levels and qurd-ia-lgvgvkzu at other levels. There could be a [...] effects were discussed with the patient. - SALES ARCHITECT-I stop was reviewed with the patient today. [...] -The refills were provided as requested. - SALES ARCHITECT-I stop was reviewed with the patient today. Adv on general care back. Use heating pad, Bengay cream to back as needed. Avoid any identifying/iden tified triggers. Sleep on firm mattress. 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 Adv on proper lifting technique. This [...] effects were discussed with the patient. - SALES ARCHITECT-I stop was reviewed with the patient today. [...] -The refills were provided as requested. - SALES ARCHITECT-I stop was reviewed with the patient today. [...] -The refills were provided as requested. - SALES ARCHITECT-I stop was reviewed with the patient today. [...] good symptom control. The Prescription Monitoring Program (SALES ARCHITECT) was reviewed to ensure safe prescribing of [...] mg IM injection for back pain. Reviewed SALES ARCHITECT for controlled substance safety. Counseled patient on [...] fractures. The patient requests an extension for [facility] paperwork related to this injury. He has been consulting with Dr. Selby, who has ordered MRIs for further evaluation [...] additional injuries or complications. Treatment Plan The [facility] paperwork was completed and signed to accommodate [...] and improve function. Continued follow-up with Dr. Selby and coordination of care for further interventions [...] communication with his care providers, including Dr. Selby and any additional specialists, will help tailor [...] relief. The patient was referred to Dr. Selby for further management of chronic back pain, [...] relief. The patient was referred to Dr. Selby for further management of chronic back pain, [...] at T12-L1 level. MRI is also showing gnqjgulh-nc-atkt re foraminal stenosis at L3-L4, L4-L5 and L5-S1 levels and ykxt-xh-tukgvirt at other levels. There could be a [...] shortness of breath, or dizziness today. Medical Decision-Makin g The patient's medications for insomnia and chronic [...] Ambien and tizanidine. The prescription monitoring program (SALES ARCHITECT I-STOP) was reviewed to ensure compliance with [...] a new disc herniation at T12-L1 with tsegxhpx-ju-tj dillon stenosis at L3-4 and L5-S1 and snwi-ua-zmoyec te stenosis at other levels. There is [...] a recommendation for further evaluation by Dr. Selby. Given the potential need for surgical intervention, referral to a library specialist was considered a future option. Managing [...] symptoms more effectively. -Advised to see Dr. Selby to reassess the condition and determine further treatment, including the possibility of surgical consultation if conservative management fails. Follow-Up The patient was advised to continue avoiding work activities that may exacerbate his condition and to adhere to follow-up appointments with Dr. Selby. Regular evaluations of his condition, with attention to any progressive neurological symptoms, were emphasized. He should return for a consultation to reassess functional status and management options, particularly if pain persists or worsens. 11/08/2024 Encounter related to worker''s compensation claim (ICD-10 - Z02.6) This is a 59-year-old male patient presenting today via [facility] for his workers compensation follow up visit. The patient presents with severe pain following a work-related injury. He has been deemed 100% disabled by the paint booth operator, Dr. Selby; however, he has not received the necessary [...] was advised to follow up with his paint booth operator, Dr. Selby. -The Toradol 30 intramuscular injection will be [...] his employer and follow up with his paint booth operator. He was instructed to monitor his pain levels and report any changes or worsening of symptoms. 11/08/2024 Chronic pain (ICD-10 - G89.29) -He was advised to follow up with his paint booth operator, Dr. Selby. -The Toradol 30 intramuscular injection will be administered to the patient today. The patient was advised visiting the for injection administration. This is a 59-year-old male patient presenting today via [facility] for his workers compensation follow up visit. The patient presents with severe pain following a work-related injury. He has been deemed 100% disabled by the paint booth operator, Dr. Selby; however, he has not received the necessary [...] was advised to follow up with his paint booth operator, Dr. Selby. -The Toradol 30 intramuscular injection will be [...] his employer and follow up with his paint booth operator. He was instructed to monitor his pain [...] care with increased fluids and may use cppc-mrk-kmtpjta medications to control cough. Patient advised to [...] disability status for worker's compensation purposes, with lqvngv-tf-prhk timing to be determined based on future [...] approach. Emphasizing communication with his worker's compensation personal service representative s and healthcare providers regarding [...] at T12-L1 level. MRI is also showing uwhdrsae-nd-zsih re foraminal stenosis at L3-L4, L4-L5 and L5-S1 levels and qrcg-if-atuzyfgx at other levels. There could be a [...] cough and generally not feeling wellPatient's and slnduh-ty-mqp are sick with similar symptomsSuspect viral infectionRule [...] the risks of combining Ambien with other MOISTURE METER OPERATOR depressants. Non-pharmacologi perry strategies, such as cognitive [...] and mobility. Continued coordinated care with Dr. Selby is critical, particularly to manage pain and monitor healing progress. Referral to pain management may offer relief through potential interventions like nerve blocks or targeted injections. Treatment Plan: Patient was advised to continue follow-up with Dr. Selby. [facility] paperwork was facilitated for a planned recovery [...] Discussion: The patient will remain under Dr. Selby's care and has been advised to keep [...] in stable condition. all diagnoses new to [place] 09/13/2024 Rib pain on right side (ICD-10 - R07.81) X-ray of the right ribs done today shows no obvious evidence of acute fracture. Patient is given Toradol 60 mg IM today in the office for his acute pain. Advised to modify activities as tolerable and use qcms-uum-eduwjuc remedies as helpful. He is given a work note today and advised to follow-up with PCP. CT results to follow. all diagnoses new to [place] 09/13/2024 Closed fracture of multiple ribs of [...] prescription requires a prior authorization from the [place]. He reports generalized body pain and requests [...] up with his primary care physician and industrial maintenance millwright, Dr. Preciado, to discuss long-term pain management [...] 5 mg for chronic pain management. The SALES ARCHITECT I-STOP was reviewed with the patient during the visit. The patient was advised to follow up in one month or sooner if needed. - Refilled oxycodone. - Monitor for side effects. - Follow up in one month. 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 The SALES ARCHITECT I-STOP was reviewed with the patient during [...] ies for 8 hours postinjection. new to [place] 08/19/2024 COVID-19 (ICD-10 - U07.1) Patient tested [...] extra rest. Advised patient to take an bjrp-cra-vkpgkei medicine, such as acetaminophen (Tylenol) to reduce fever. Recommended cxey-nvu-gpdpoae medications to help with the congestion, cough and discomfort. The risks, benefits, and alternatives for all the treatments provided today were reviewed in detail with the patient. Patient verbalized understanding and consented to treatment plan. Discharged in stable condition. new to [place] 08/26/2024 Lumbar disc disorder (ICD-10 - M51.9) [...] right foot and ankle (ICD-10 - M77.51) 08/13/2024 Lumbar radiculopathy (ICD-10 - M54.16) Toradol [...] today in stable condition. not new to [place] 08/13/2024 Other chronic pain (ICD-10 - G89.29) not new to [place] 08/15/2024 Lumbar radiculopathy (ICD-10 - M54.16) (History [...] in stable condition. all diagnoses new to [place] 09/19/2024 Encounter related to worker's compensation claim [...] refill for Tramadol was provided, and the SALES ARCHITECT I-STOP was reviewed with the patient during the visit. A Toradol IM injection of 60 mg was ordered to manage his acute pain. The patient was referred to Dr. Hanson for further evaluation and management of his orthopedic issues. - Refilled Tramadol. - Ordered Toradol IM injection. - Referred to Dr. Hanson. 09/26/2024 Closed fracture of multiple ribs of right side, initial encounter (ICD-10 - S22.41XA) Ordered Toradol injection.Discus sed side effects.Importan ce of adherence.Risks of non-adherence. MEDICAL DECISION MAKING AND TREATMENT PLAN: The patient's medical history was reviewed, and medications were reconciled. A refill for Tramadol was provided, and the SALES ARCHITECT I-STOP was reviewed with the patient during the visit. A Toradol IM injection of 60 mg was ordered to manage his acute pain. The patient was referred to Dr. Hanson for further evaluation and management of his orthopedic issues. - Refilled Tramadol. - Ordered Toradol IM injection. - Referred to Dr. Hanson. 09/26/2024 Chest pain, unspecified type (ICD-10 - [...] (ICD-10 - R51.9) Expedite Dr. Traore appointment.Radha tor symptoms closely.Follow up if worsens. MEDICAL DECISION MAKING AND TREATMENT PLAN: The patient's medical history was reviewed, and medications were reconciled. Given the ongoing symptoms of chest pain and headache, the appointment with Dr. Traroe will be expedited to ensure timely evaluation [...] emphasized to prevent recurrence and resistance. 10/14/2024 Dry eyes (ICD-10 - H04.123) This [...] refill for Tramadol was provided, and the SALES ARCHITECT I-STOP was reviewed with the patient during the visit. A Toradol IM injection of 60 mg was ordered to manage his acute pain. The patient was referred to Dr. Hanson for further evaluation and management of his orthopedic issues. - Refilled Tramadol. - Ordered Toradol IM injection. - Referred to Dr. Hanson. 09/19/2024 Lumbar disc disorder (ICD-10 - M51.9) [...] and mobility. Continued coordinated care with Dr. Selby is critical, particularly to manage pain and monitor healing progress. Referral to pain management may offer relief through potential interventions like nerve blocks or targeted injections. Treatment Plan: Patient was advised to continue follow-up with Dr. Selby. [place] paperwork was facilitated for a planned [...] Discussion: The patient will remain under Dr. Selby's care and has been advised to keep [...] the risks of combining Oxycodone with other MOISTURE METER OPERATOR depressants. Non-pharmacologi perry strategies, such as physical [...] disability status for worker's compensation purposes, with hsuipy-er-fasx timing to be determined based on future [...] approach. Emphasizing communication with his worker's compensation personal service representative s and healthcare providers regarding [...] symptoms. The patient is interested in obtaining [employer] for cough management. He offers no [...] a 59-year-old male patient presenting today via [facility] for his workers compensation follow up visit. The patient presents with severe pain following a work-related injury. He has been deemed 100% disabled by the paint booth operator, Dr. Selby; however, he has not received the necessary [...] was advised to follow up with his paint booth operator, Dr. Selby. -The Toradol 30 intramuscular injection will be [...] his employer and follow up with his paint booth operator. He was instructed to monitor his pain [...] a new disc herniation at T12-L1 with nksbqrux-ym-lu dillon stenosis at L3-4 and L5-S1 and krfy-dn-verpyz te stenosis at other levels. There is [...] a recommendation for further evaluation by Dr. Selby. Given the potential need for surgical intervention, referral to a library specialist was considered a future option. Managing [...] symptoms more effectively. -Advised to see Dr. Selby to reassess the condition and determine further treatment, including the possibility of surgical consultation if conservative management fails. Follow-Up The patient was advised to continue avoiding work activities that may exacerbate his condition and to adhere to follow-up appointments with Dr. Selby. Regular evaluations of his condition, with attention [...] Ambien and tizanidine. The prescription monitoring program (SALES ARCHITECT I-STOP) was reviewed to ensure compliance with [...] fractures. The patient requests an extension for [facility] paperwork related to this injury. He has been consulting with Dr. Selby, who has ordered MRIs for further evaluation [...] additional injuries or complications. Treatment Plan The [facility] paperwork was completed and signed to accommodate [...] and improve function. Continued follow-up with Dr. Selby and coordination of care for further interventions [...] communication with his care providers, including Dr. Selby and any additional specialists, will help tailor [...] good symptom control. The Prescription Monitoring Program (SALES ARCHITECT) was reviewed to ensure safe prescribing of [...] mg IM injection for back pain. Reviewed SALES ARCHITECT for controlled substance safety. Counseled patient on [...] -The refills were provided as requested. - SALES ARCHITECT-I stop was reviewed with the patient today. [...] effects were discussed with the patient. - SALES ARCHITECT-I stop was reviewed with the patient today. [...] effects were discussed with the patient. - SALES ARCHITECT-I stop was reviewed with the patient today. [...] dependence, sedation, constipation, and respiratory depression. The SALES ARCHITECT I-STOP was reviewed to ensure appropriate use [...] times daily for chronic pain management. The SALES ARCHITECT I-STOP was reviewed for appropriate use. 2. [...] good efficacy and no adverse effects. The SALES ARCHITECT I-STOP was reviewed to ensure appropriate use [...] assessed. Referral to orthopedic surgery (Dr. Fabien Hanson) was provided for further evaluation and [...] good efficacy and no adverse effects. The SALES ARCHITECT I-STOP was reviewed to ensure appropriate use [...] for any side effects or complications. 05/27/2025 prison current use of opiate analgesic (ICD-10 - [...] dependence, sedation, constipation, and respiratory depression. The SALES ARCHITECT I-STOP was reviewed to ensure appropriate use [...] times daily for chronic pain management. The SALES ARCHITECT I-STOP was reviewed for appropriate use. 2. [...] told him he needs to have a personal secretary and the patient states that he is trying to find a personal secretary who speaks Turkmen. 12/24/2024 Pain in right leg (ICD-10 - M79.604) 12/26/2024 Herniation of lumbar intervertebral disc with radiculopathy (ICD-10 - M51.16) Plan of Care: Continued evaluation by Dr. Selby, with potential surgical consultation if indicated.Non-ph armacological [...] -The refills were provided as requested. - SALES ARCHITECT-I stop was reviewed with the patient today. [...] good symptom control. The Prescription Monitoring Program (SALES ARCHITECT) was reviewed to ensure safe prescribing of [...] mg IM injection for back pain. Reviewed SALES ARCHITECT for controlled substance safety. Counseled patient on [...] a new disc herniation at T12-L1 with ykdwaqyj-hp-hk dillon stenosis at L3-4 and L5-S1 and pdxu-el-uykuak te stenosis at other levels. There is [...] a recommendation for further evaluation by Dr. Selby. Given the potential need for surgical intervention, referral to a library specialist was considered a future option. Managing [...] symptoms more effectively. -Advised to see Dr. Selby to reassess the condition and determine further treatment, including the possibility of surgical consultation if conservative management fails. Follow-Up The patient was advised to continue avoiding work activities that may exacerbate his condition and to adhere to follow-up appointments with Dr. Selby. Regular evaluations of his condition, with attention to any progressive neurological symptoms, were emphasized. He should return for a consultation to reassess functional status and management options, particularly if pain persists or worsens. 11/05/2024 Herniation of lumbar intervertebral disc with radiculopathy (ICD-10 - M51.16) Plan of Care: Continued evaluation by Dr. Selby, with potential surgical consultation if indicated.Non-ph armacological [...] a new disc herniation at T12-L1 with wzvisatl-ii-gy dillon stenosis at L3-4 and L5-S1 and laqe-ho-lfnjfr te stenosis at other levels. There is [...] a recommendation for further evaluation by Dr. Selby. Given the potential need for surgical intervention, referral to a library specialist was considered a future option. Managing [...] symptoms more effectively. -Advised to see Dr. Selby to reassess the condition and determine further treatment, including the possibility of surgical consultation if conservative management fails. Follow-Up The patient was advised to continue avoiding work activities that may exacerbate his condition and to adhere to follow-up appointments with Dr. Selby. Regular evaluations of his condition, with attention [...] disability status for worker's compensation purposes, with kaifha-ai-zdes timing to be determined based on future [...] approach. Emphasizing communication with his worker's compensation personal service representative s and healthcare providers regarding [...] emphasized to prevent recurrence and resistance. 10/14/2024 Headache (ICD-10 - G44.319) This is [...] to optimize care and therapeutic outcomes. 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 The patient is advised to have estate attorney for his Worker's Comp case as we submitted for these injections and so far we did not get the approval. 11/26/2024 Herniation of lumbar intervertebral disc with radiculopathy (ICD-10 - M51.16) Plan of Care: Continued evaluation by Dr. Selby, with potential surgical consultation if indicated.Non-ph armacological [...] disability status for worker's compensation purposes, with jfaein-th-agjj timing to be determined based on future [...] approach. Emphasizing communication with his worker's compensation personal service representative s and healthcare providers regarding [...] has been deemed 100% disabled by the paint booth operator, Dr. Selby; however, he has not received the necessary [...] was advised to follow up with his paint booth operator, Dr. Selby. -The Toradol 30 intramuscular injection will be [...] his employer and follow up with his paint booth operator. He was instructed to monitor his pain levels and report any changes or worsening of symptoms. 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 There is [...] a recommendation for further evaluation by Dr. Selby. Given the potential need for surgical intervention, referral to a library specialist was considered a future option. Managing [...] symptoms more effectively. -Advised to see Dr. Selby to reassess the condition and determine further treatment, including the possibility of surgical consultation if conservative management fails. Follow-Up The patient was advised to continue avoiding work activities that may exacerbate his condition and to adhere to follow-up appointments with Dr. Selby. Regular evaluations of his condition, with attention [...] was advised to avoid alcohol and other MOISTURE METER OPERATOR depressants while taking Ambien, and non-pharmacologi perry [...] good symptom control. The Prescription Monitoring Program (SALES ARCHITECT) was reviewed to ensure safe prescribing of [...] mg IM injection for back pain. Reviewed SALES ARCHITECT for controlled substance safety. Counseled patient on [...] Plan of Care: Continued evaluation by Dr. Selby, with potential surgical consultation if indicated.Non-ph armacological [...] -The refills were provided as requested. - SALES ARCHITECT-I stop was reviewed with the patient today. Adv on general care back. Use heating pad, Bengay cream to back as needed. Avoid any identifying/iden tified triggers. Sleep on firm mattress. 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 Adv on proper lifting technique. This [...] -The refills were provided as requested. - SALES ARCHITECT-I stop was reviewed with the patient today. [...] effects were discussed with the patient. - SALES ARCHITECT-I stop was reviewed with the patient today. [...] 2. The patient is advised to have estate attorney for his Worker's Comp case as [...] dependence, sedation, constipation, and respiratory depression. The SALES ARCHITECT I-STOP was reviewed to ensure appropriate use [...] times daily for chronic pain management. The SALES ARCHITECT I-STOP was reviewed for appropriate use. 2. [...] good efficacy and no adverse effects. 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 The SALES ARCHITECT I-STOP was reviewed to ensure appropriate use [...] effects were discussed with the patient. - SALES ARCHITECT-I stop was reviewed with the patient today. [...] -The refills were provided as requested. - SALES ARCHITECT-I stop was reviewed with the patient today. [...] -The refills were provided as requested. - SALES ARCHITECT-I stop was reviewed with the patient today. [...] good symptom control. The Prescription Monitoring Program (SALES ARCHITECT) was reviewed to ensure safe prescribing of [...] mg IM injection for back pain. Reviewed SALES ARCHITECT for controlled substance safety. Counseled patient on [...] has been deemed 100% disabled by the paint booth operator, Dr. Selby; however, he has not received the necessary [...] was advised to follow up with his paint booth operator, Dr. Selby. -The Toradol 30 intramuscular injection will be [...] his employer and follow up with his paint booth operator. He was instructed to monitor his pain [...] disability status for worker's compensation purposes, with zfbead-of-qioh timing to be determined based on future [...] approach. Emphasizing communication with his worker's compensation personal service representative s and healthcare providers regarding [...] USEBECAUSE OF RUSSELL OF DEANNA f/up with ros The patient is a 59-year-old male presenting [...] Plan of Care: Continued evaluation by Dr. Selby, with potential surgical consultation if indicated.Non-ph armacological strategies: Physical therapy and activity modification recommended. This is a 59-year-old male patient presenting today via telemed for his workers compensation follow up visit. The patient presents with severe pain following a work-related injury. He has been deemed 100% disabled by the paint booth operator, Dr. Selby; however, he has not received the necessary [...] was advised to follow up with his paint booth operator, Dr. Selby. -The Toradol 30 intramuscular injection will be [...] his employer and follow up with his paint booth operator. He was instructed to monitor his pain levels and report any changes or worsening of symptoms. 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 The [...] good symptom control. The Prescription Monitoring Program (SALES ARCHITECT) was reviewed to ensure safe prescribing of [...] mg IM injection for back pain. Reviewed SALES ARCHITECT for controlled substance safety. Counseled patient on [...] -The refills were provided as requested. - SALES ARCHITECT-I stop was reviewed with the patient today. [...] effects were discussed with the patient. - SALES ARCHITECT-I stop was reviewed with the patient today. [...] side effects from the new medications. 01/02/2025 prison current use of opiate analgesic (ICD-10 - [...] -The refills were provided as requested. - SALES ARCHITECT-I stop was reviewed with the patient today. [...] of Care: Ongoing monitoring and referral to library specialist if surgery becomes necessary.Non-ph armacological strategies: Maintain a regimen of therapeutic exercise and posture correction. This is a 59-year-old male patient presenting today via telemed for his workers compensation follow up visit. The patient presents with severe pain following a work-related injury. He has been deemed 100% disabled by the paint booth operator, Dr. Selby; however, he has not received the necessary [...] was advised to follow up with his paint booth operator, Dr. Selby. -The Toradol 30 intramuscular injection will be [...] his employer and follow up with his paint booth operator. He was instructed to monitor his pain levels and report any changes or worsening of symptoms. 08/15/2024 Other Please understand that telemedicine-bas ed services may not be as complete as zjto-fs-lqyc services. If your Provider believes you would be better served by another form of medical services (e.g. face to face services) you will be asked to make a lcla-rj-khlm appointment. There are potential risks and benefits associated with any form of medical treatment. You may expect the anticipated benefits from the use of telemedicine in your care, but no results can be guaranteed or assured. Scribed for Hiram SLAUGHTER by Harsha Molina Scribe. All medical record entries made by [...] and any pending blood work issues. 08/29/2024 Other Today's treatment consisted of trigger [...] in one month for follow up care. 10/01/[address] Mary Traore MD by Zakia Beckham Measurement And Sensing Technician. All medical record entries made by the Scribe were at my direction and personally dictated by me. I have reviewed the chart and agree that the record accurately reflects, the personal performance of the history, physical exam, medical decision-making, and instructions for this patient. I have also personally directed, reviewed, and agree with the patient's education and plan 08/26/2024 Other By signing my name below, [...] up with his primary care physician and industrial maintenance millwright, Dr. Preciado, to discuss long-term pain management strategies and assess for vitamin B12 deficiency. He should report any worsening or new symptoms. 11/05/2024 Other By signing my name below, [...] Ambien and tizanidine. The prescription monitoring program (SALES ARCHITECT I-STOP) was reviewed to ensure compliance with [...] options such as physical therapy, was recommended. 09/16/2024 Other By signing my name below, I, Bethjay Horney, attest that this documentation has been prepared [...] and mobility. Continued coordinated care with Dr. Selby is critical, particularly to manage pain and monitor healing progress. Referral to pain management may offer relief through potential interventions like nerve blocks or targeted injections. Treatment Plan: Patient was advised to continue follow-up with Dr. Selby. [place] paperwork was facilitated for a planned [...] Discussion: The patient will remain under Dr. Selby's care and has been advised to keep [...] was emphasized to prevent recurrence and resistance. 09/16/2024 Other 1. He is complaining of [...] xxxxxxxxxxxxxxxx xxxxxxxxxxxxxxxx xxxxxxxxxxxxxxxx xxxxxxxxxxxxx Scribed for Rodolfo Selby M.D., by Lauri Martinez Measurement And Sensing Technician. All medical record entries made by the Scribe were at my direction and personally dictated by me. I have reviewed the chart and agree that the record accurately reflects personal performance of the history, physical exam, medical decision making, and the instructions for this patient. I have also personally directed, reviewed, and agreed with the patient's education and plan. 09/16/2024 Other By signing my name below, IBeth, [...] Other By signing my name below, Gabino Roasles attest that this documentation has been prepared [...] 5 mg for chronic pain management. The SALES ARCHITECT I-STOP was reviewed with the patient during [...] 09/13/2024 Other By signing my name below, IИрина, felix that this documentation has been prepared [...] services may not be as complete as pdex-cn-saqe services. If your Provider believes you would be better served by another form of medical services (e.g. face to face services) you will be asked to make a gkxe-jc-sfsu appointment. There are potential risks and benefits associated with any form of medical treatment. You may expect the anticipated benefits from the use of telemedicine in your care, but no results can be guaranteed or assured. . Scribed for ROBBI Ruelas by Gary Gamino Measurement And Sensing Technician. All medical record entries made by the [...] 09/19/2024 Other By signing my name below, IStu, [...] Villegas MD By signing my name below, ISyeda Raaspen, attest that this documentation has been supervised [...] 09/18/2024 Other By signing my name below, IИрина [...] office under Worker's Comp. Scribed for Rodolfo Selby M.D., by Jimmie Kraft Measurement And Sensing Technician. All medical record entries made by the [...] refill for Tramadol was provided, and the SALES ARCHITECT I-STOP was reviewed with the patient during the visit. A Toradol IM injection of 60 mg was ordered to manage his acute pain. The patient was referred to Dr. Hanson for further evaluation and management of his orthopedic issues. - Refilled Tramadol. - Ordered Toradol IM injection. - Referred to Dr. Hanson. 09/26/2024 Other By signing my name below, I, Gabino Michelle, attest that this documentation has been prepared [...] MD By signing my name below, ISyeda, attest [...] fractures. The patient requests an extension for [facility] paperwork related to this injury. He has been consulting with Dr. Selby, who has ordered MRIs for further evaluation [...] additional injuries or complications. Treatment Plan The [facility] paperwork was completed and signed to accommodate [...] and improve function. Continued follow-up with Dr. Selby and coordination of care for further interventions [...] communication with his care providers, including Dr. Selby and any additional specialists, will help tailor [...] MD By signing my name below, I, Mami Dsouza, attest that this documentation has been prepared [...] relief. The patient was referred to Dr. Selby for further management of chronic back pain, [...] or complications. 10/25/2024 Other Scribed for Rodolfo Selby M.D., by Jimmie Kraft Measurement And Sensing Technician. All medical record entries made by the [...] Dr. Mary Traore MD by Zakia Beckham Measurement And Sensing Technician. All medical record entries made by the [...] xxxxxxxxxxxxxxxx xxxxxxxxxxxxxxxx xxxxxxxxxxxxxxxx xxxxxxxxxxxxx Scribed for Rodolfo Selby M.D., by Jimmie Kraft Measurement And Sensing Technician. All medical record entries made by the [...] 11/08/2024 Other By signing my name below, I, [...] Bebeto Villegas MD Electronically Signed: Syeda Bhupinder This is a 59-year-old male patient presenting today via telemed for his workers compensation follow up visit. The patient presents with severe pain following a work-related injury. He has been deemed 100% disabled by the paint booth operator, Dr. Selby; however, he has not received the necessary [...] was advised to follow up with his paint booth operator, Dr. Selby. -The Toradol 30 intramuscular injection will be [...] his employer and follow up with his paint booth operator. He was instructed to monitor his pain [...] Other By signing my name below, IJos, felix that this documentation has been prepared [...] Villegas MD By signing my name below, ConnieSyeda, attfrank that this documentation has been prepared [...] disability status for worker's compensation purposes, with mrxqed-yg-ehcf timing to be determined based on future [...] approach. Emphasizing communication with his worker's compensation personal service representative s and healthcare providers regarding [...] xxxxxxxxxxxxxxxx xxxxxxxxxxxxxxxx xxxxxxxxxxxxxxxx xxxxxxxxxxxxxxxx xxxxxxxxxxxxx Scribed for oRdolfo Selby M.D., by Jimmie Kraft Measurement And Sensing Technician. All medical record entries made by the [...] xxxxxxxxxxxxxxxx xxxxxxxxxxxxxxxx xxxxxxxxxxxxxxxx xxxxxxxxxxxxx Scribed for Rodolfo Selby M.D., by Jimmie Kraft Measurement And Sensing Technician. All medical record entries made by the [...] Dr. Mary Traore MD by Zakia Beckham Measurement And Sensing Technician. All medical record entries made by the [...] effects were discussed with the patient. - SALES ARCHITECT-I stop was reviewed with the patient today. [...] -The refills were provided as requested. - SALES ARCHITECT-I stop was reviewed with the patient today. [...] By signing my name below, Trudy Rosales, felix that this documentation has been [...] 02/10/2025 Other By signing my name below, Stu [...] good symptom control. The Prescription Monitoring Program (SALES ARCHITECT) was reviewed to ensure safe prescribing of [...] mg IM injection for back pain. Reviewed SALES ARCHITECT for controlled substance safety. Counseled patient on [...] good efficacy and no adverse effects. The SALES ARCHITECT I-STOP was reviewed to ensure appropriate use [...] dependence, sedation, constipation, and respiratory depression. The SALES ARCHITECT I-STOP was reviewed to ensure appropriate use [...] times daily for chronic pain management. The SALES ARCHITECT I-STOP was reviewed for appropriate use. 2. [...] sooner if new symptoms or concerns arise. 06/17/2025 Other By signing my name below, IPrateek, attfrank that this documentation has been prepared [...] 6. Follow-up appointment scheduled in four weeks. 06/12/2025 [...] assessed. Referral to orthopedic surgery (Dr. Fabien Hanson) was provided for further evaluation and [...] Date EKG* 08/18/2020 TSH 04/21/2016 Hepatitis Panel* [id number] 08/03/2017 [place] Eye Exam with Fluorescein [...] 06/02/2025 PSA Antigen-[facility] 06/02/2025 Thyroid Stimulating Hormone 5-Ltaou-Lzgs lica 06/02/2025 Vitamin D Total-[facility] 06/02/2025 Comp Metabolic Panel (14)-[facility] 06/02 Lipid Panel-[facility] 06/02/2025 Hemoglobin A1c * 36011 06/09/2025 ESR (sed rate) * 16466 06/09/2025 CBC W/DIFF with Refx to Retic (new) IN H OUSE *2116* 06/09/2025 RSV: RESPIRATORY SYNCYTIAL VIRUS* 15541 06/24/2025 V[employer] SARS-CoV-2 RT PCR* IH 6356 06/24 Influenza A/B & COVID 19 Ag*54 5 Insurance Providers Payer Name Payer Address Payer Phone Subscriber Number Group Number Insured Name Patient Relationship to Insured Coverage Start Date Coverage End Date [facility] [employer] [address] [address] [place] [address] [phone] [id number] Tino Phillips Self - patient is the insured [employer] [address] [address] [place] [address] [id number] [employer], Employee 2 [employer] [facility] [id number] Unknown, Employee [facility] [employer] [employer] [phone] [place] [address] [phone] [employer], Employee [facility] [employer] [phone] [place] [address] [phone] [id number] [employer], Employee Medications Administered Medication Instructions Date [...]
--- OUTSIDE RECORDS SUMMARY | 2025-08-05 09:34 | XMS_ITS | Encounter Summary ---
Author Organization [email or web address] Address [address] [place] [address] [place] [address] Care Team Providers Care Account Services Specialist Name Role Phone Missy Mcwilliams MD Primary Care Provider Name, Nestor SMITH Primary Care Provider [phone] Reason for Visit * Reason Onset Date Comments New Patient Request 01/31/2025 Encounter Details Date Type Department Care Team ([facility] st Contact Info) Description 01/31/2025 Telephone [facility] [address] [place], [place] [phone] Navarro Ariza MD [address] [place], [place] [phone] New Patient Request Social History Tobacco Use [...] EDT Outgoing call to pt to book READING TEACHER appt with [facility] office. No answer. Left message. * Telephone Encounter - Corrie Alejandra - 01/31/2025 11:14 AM EDT TC from caller requesting NEW PATIENT visit . DX : N/A Medical Concern: Back Pain (Fall) Insurance name : [facility] Location : Sooner available Demographic information updated documented in this encounter Plan of Treatment Upcoming Encounters Date Type Department Care Team (Late st Contact Info) Description 08/27/2025 9:00 AM EST Clinical Support [address] [address] Annette Stanford RN 10/08/2025 11:15 AM EST Office Visit [address] [address] Name, MD Nestor [address] [place] [phone] documented as of this encounter Visit Diagnoses Not on filedocumented in this encounter Care Teams Account Services Specialist Relationship Specialty Start Date End Date Missy Mcwilliams MD [address] [place] [phone] PCP - General Family Medicine 03/31/25 06/18/25 Nestor Lofton MD [address] [place] [phone] PCP - General Internal Medicine 06/19/25 documented as of this encounter
--- OUTSIDE RECORDS SUMMARY | 2025-08-05 09:35 | XMS_ITS | Encounter Summary ---
Author Organization [employer] Address [address] [place] [address] 7 [place] [address] Care Team Providers Care Dispute Specialist Name Role Phone Name, Nestor SMITH Primary Care Provider [phone] Reason for Visit * Reason Onset Date Comments Med Refill 07/17/2025 Encounter Details Date Type Department Care Team ([facility] st Contact Info) Description 07/17/2025 Telephone [facility] MED[facility]INE [address] [place], [place] [phone] Name, MD Nestor [address] [place] [address] Med Refill Social History Tobacco Use Types [...] Telephone Encounter - Faye Ordonez LPN - 07/17/2025 12:22 PM EST Medication was sent to [facility] #[id number] on 06/10/25 with 1 refill. * Telephone Encounter - Ancelmo Garcia - 07/17/2025 12:17 PM EST TC from pt requesting medication refill. Medications needing refill : zolpidem (Ambien) 10 MG tablet To be sent to: [facility]/pharmacy #[id number] - [address] documented in this encounter Plan of Treatment Upcoming Encounters Date Type Department Care Team ([facility] st Contact Info) Description 08/27/2025 9:00 AM EST Clinical Support [facility] [address] [place] [phone] Annette Stanford RN 10/08/2025 11:15 AM EST Office Visit [facility] [address] [place] [phone] Name, MD Nestor [address] [place] [address] documented as of this encounter Visit Diagnoses Not on filedocumented in this encounter Additional Health Concerns Assessment Noted Time PHQ-9 Depression Total Score: 22 025 11:19 AM EDT documented as of this encounter Care Teams Dispute Specialist Relationship Specialty Start Date End Date Name, MD Nestor [address] [place] [address] PCP - General Internal Medicine 06/19/25 documented as of this encounter
== END 2025-08-05 08:06 ==
LOC: HO.MRI 08:05
PROVIDERS: PCP Family Medicine; Visit Provider Physician Assistant
DX: M54.2 Cervicalgia (principal)
CPT/HCPCS: 72141